=== PATIENT | female | born 1940 | race Caucasian/White ===

== ENCOUNTER 2020-01-01 | Outpatient (REF) | payer OTHER, MEDICARE, SELFPAY ==
[2020-01-01 06:18] LABS: Hematocrit 26.7 % (37-47); Hemoglobin 8.7 g/dl (12.0-16.0); Mean Corpuscular HGB Conc 32.6 g/dl (31.0-35.0); Mean Corpuscular Hemoglobin 34.4 pg (27.0-33.0); Mean Corpuscular Volume 105.5 fL (80-98); Mean Platelet Volume 9.6 fL (9.4-12.3); Platelet Count 241 X10*3/uL (160-400); Red Blood Count 2.53 X10*6/uL (4.20-5.50); Red Cell Distribution Width 15.7 % (11.0-16.0); White Blood Count 5.7 X10*3/uL (4.8-10.8)
[2020-01-01 07:03] LABS: Anion Gap 11 (12-20); Blood Urea Nitrogen 37 mg/dL (9-16); Calcium 8.3 mg/dL (8.4-10.2); Carbon Dioxide 33 mmol/L (22-29); Chloride 98 mmol/L (96-108); Estimated Glomerular Filt Rate 47; Glucose Random 91 mg/dL (60-115); Potassium 3.8 mmol/l (3.3-5.1); Sodium 138 mmol/L (135-145); Uric Acid 9.6 mg/dL (2.4-5.7)
== END 2020-01-01 00:01 ==
LOC: HO.MMNH1L
PROVIDERS: Visit Provider Family Medicine
DX: M10.9 Gout, unspecified (principal)
CPT/HCPCS: 36415; 80048; 84550; 85027

== ENCOUNTER 2020-01-11 11:54 | Outpatient (REF) | payer MEDICARE, SELFPAY ==
[2020-01-11 12:04] LABS: MANUAL DIFF FLAG NO
[2020-01-11 12:23] LABS: Basophils Percent Auto 0.5 % (0-2); Hematocrit 28.6 % (37-47); Hemoglobin 9.4 g/dl (12.0-16.0); Imm Gran Abs Auto 0.01 X10*3/uL (0.00-0.03); Imm Gran Pct Auto 0.2 % (0.0-0.4); Immature Retic Fraction 10.5 % (3.0-15.9); Lymphocytes Absolute Auto 1.1 X10*3/uL (1.2-4.9); Lymphocytes Percent Auto 27.2 % (20-40); Mean Corpuscular HGB Conc 32.9 g/dl (31.0-35.0); Mean Corpuscular Hemoglobin 34.9 pg (27.0-33.0); Mean Corpuscular Volume 106.3 fL (80-98); Mean Platelet Volume 10.3 fL (9.4-12.3); Monocytes Absolute Auto 0.4 X10*3/uL (0.1-1.2); Monocytes Percent Auto 9.3 % (2-11); Neutrophils Absolute Auto 2.6 X10*3/uL (2.0-8.3); Neutrophils Percent Auto 61.8 % (45-73); Platelet Count 185 X10*3/uL (160-400); Red Blood Count 2.69 X10*6/uL (4.20-5.50); Red Cell Distribution Width 15.7 % (11.0-16.0); Retic HGB Equivalent 34.5 pg (30.0-35.0); Reticulocyte Percent 1.3 % (0.5-1.8); Reticulocytes Absolute 0.035 X10*6/uL (0.026-0.095); White Blood Count 4.2 X10*3/uL (4.8-10.8)
[2020-01-11 12:30] LABS: Anion Gap 15 (12-20); Blood Urea Nitrogen 18 mg/dL (9-16); Calcium 8.7 mg/dL (8.4-10.2); Carbon Dioxide 26 mmol/L (22-29); Chloride 104 mmol/L (96-108); Estimated Glomerular Filt Rate 46; Glucose Random 137 mg/dL (60-115); Iron 112 mcg/dL (30-160); Percent Iron Saturation 48 % (15-50); Phosphorus 3.3 mg/dL (2.7-4.5); Potassium 4.3 mmol/l (3.3-5.1); Sodium 141 mmol/L (135-145); Total Iron Binding Capacity 234 mcg/dL (228-428); Unsaturated Iron Binding 122 ug/dL
[2020-01-11 12:50] LABS: Ferritin 565 ng/mL (10-250)
[2020-01-11 14:01] LABS: Vitamin B12 248 pg/mL (200-900)
[2020-01-12 22:21] LABS: NT-proBNP 1950 pg/mL
== END 2020-01-11 11:55 | disposition home or self-care (01) ==
LOC: HO.HVNA 11:54
PROVIDERS: Visit Provider Internal Medicine
DX: D53.9 Nutritional anemia, unspecified (principal); I50.9 Heart failure, unspecified
CPT/HCPCS: 36415; 80051; 82310; 82565; 82607; 82728; 82947; 83540; 83880; 84100; 84520; 85025; 85045

== ENCOUNTER 2020-02-05 15:15 | Outpatient (REF) | payer MEDICARE, SELFPAY ==
[2020-02-05 15:52] LABS: Anion Gap 15 (12-20); Blood Urea Nitrogen 43 mg/dL (9-16); Calcium 8.3 mg/dL (8.4-10.2); Carbon Dioxide 24 mmol/L (22-29); Chloride 105 mmol/L (96-108); Estimated Glomerular Filt Rate 31; Glucose Random 127 mg/dL (60-115); Potassium 4.6 mmol/l (3.3-5.1); Sodium 139 mmol/L (135-145)
[2020-02-05 15:57] LABS: B Type Natriuretic Peptide 295 pg/mL (<100)
== END 2020-02-05 15:16 | disposition home or self-care (01) ==
LOC: HO.LNP 15:15
PROVIDERS: Visit Provider Internal Medicine Advanced Heart Failure and Transplant Cardiology
DX: I50.9 Heart failure, unspecified (principal)
CPT/HCPCS: 80048; 83880

== ENCOUNTER 2020-02-13 10:28 | Outpatient (REF) | payer MEDICARE, SELFPAY ==
[2020-02-13 11:23] LABS: B Type Natriuretic Peptide 205 pg/mL (<100)
[2020-02-13 11:40] LABS: Anion Gap 15 (12-20); Blood Urea Nitrogen 49 mg/dL (9-16); Calcium 8.6 mg/dL (8.4-10.2); Carbon Dioxide 24 mmol/L (22-29); Chloride 104 mmol/L (96-108); Estimated Glomerular Filt Rate 29; Glucose Random 104 mg/dL (60-115); Potassium 4.6 mmol/l (3.3-5.1); Sodium 138 mmol/L (135-145)
== END 2020-02-13 10:29 | disposition home or self-care (01) ==
LOC: HO.LNP 10:28
PROVIDERS: Visit Provider Internal Medicine Advanced Heart Failure and Transplant Cardiology
DX: I50.9 Heart failure, unspecified (principal)
CPT/HCPCS: 80048; 83880

== ENCOUNTER 2020-02-19 15:08 | Outpatient (REF) | payer MEDICARE, SELFPAY ==
[2020-02-19 16:23] LABS: Anion Gap 15 (12-20); Blood Urea Nitrogen 46 mg/dL (9-16); Calcium 8.8 mg/dL (8.4-10.2); Carbon Dioxide 28 mmol/L (22-29); Chloride 102 mmol/L (96-108); Cholesterol 125 mg/dL; Estimated Glomerular Filt Rate 27; Glucose Random 92 mg/dL (60-115); HDL Cholesterol 49 mg/dL; LDL Cholesterol Calculated 56 mg/dl; Potassium 5.1 mmol/l (3.3-5.1); Sodium 140 mmol/L (135-145); Triglycerides 102 mg/dL
[2020-02-20 11:56] LABS: NT-proBNP 4490 pg/mL
== END 2020-02-19 15:09 | disposition home or self-care (01) ==
LOC: HO.HVNA 15:08
PROVIDERS: Visit Provider Internal Medicine
DX: E78.5 Hyperlipidemia, unspecified (principal); I50.9 Heart failure, unspecified
CPT/HCPCS: 80048; 80061; 83880

== ENCOUNTER 2020-02-27 12:02 | Outpatient (REF) | payer MEDICARE, SELFPAY ==
[2020-02-27 12:06] LABS: MANUAL DIFF FLAG NO
[2020-02-27 12:15] LABS: Basophils Percent Auto 0.9 % (0-2); Eosinophils Percent Auto 0.6 % (0-4); Hematocrit 25.8 % (37-47); Hemoglobin 8.4 g/dl (12.0-16.0); Imm Gran Abs Auto 0.01 X10*3/uL (0.00-0.03); Imm Gran Pct Auto 0.3 % (0.0-0.4); Lymphocytes Absolute Auto 0.9 X10*3/uL (1.2-4.9); Lymphocytes Percent Auto 26.5 % (20-40); Mean Corpuscular HGB Conc 32.6 g/dl (31.0-35.0); Mean Corpuscular Hemoglobin 35.7 pg (27.0-33.0); Mean Corpuscular Volume 109.8 fL (80-98); Mean Platelet Volume 10.2 fL (9.4-12.3); Monocytes Absolute Auto 0.3 X10*3/uL (0.1-1.2); Monocytes Percent Auto 7.8 % (2-11); Neutrophils Absolute Auto 2.2 X10*3/uL (2.0-8.3); Neutrophils Percent Auto 63.9 % (45-73); Platelet Count 160 X10*3/uL (160-400); Red Blood Count 2.35 X10*6/uL (4.20-5.50); Red Cell Distribution Width 15.7 % (11.0-16.0); Retic HGB Equivalent 33.5 pg (30.0-35.0); Reticulocyte Percent 2.3 % (0.5-1.8); Reticulocytes Absolute 0.055 X10*6/uL (0.026-0.095); White Blood Count 3.5 X10*3/uL (4.8-10.8)
[2020-02-27 13:26] LABS: Vitamin B12 310 pg/mL (200-900)
== END 2020-02-27 12:03 | disposition home or self-care (01) ==
LOC: HO.LNP 12:02
PROVIDERS: Visit Provider Internal Medicine
DX: D53.9 Nutritional anemia, unspecified (principal)
CPT/HCPCS: 36415; 82607; 85025; 85045

== ENCOUNTER 2020-06-17 00:15 | Outpatient (REF) | payer SELFPAY | END 2020-06-17 00:16 | disposition home or self-care (01) | LOC: HO.MMNH2L 00:15 | PROVIDERS: Visit Provider Family Medicine | DX: Z13.89 Encounter for screening for other disorder (principal) ==

== ENCOUNTER 2020-12-03 05:49 | Outpatient (REF) | payer MEDICARE, SELFPAY ==
[2020-12-03 06:09] LABS: Hematocrit 24.2 % (37-47); Hemoglobin 7.8 g/dl (12.0-16.0); Mean Corpuscular HGB Conc 32.2 g/dl (31.0-35.0); Mean Corpuscular Hemoglobin 33.9 pg (27.0-33.0); Mean Corpuscular Volume 105.2 fL (80-98); Mean Platelet Volume 10.5 fL (9.4-12.3); Platelet Count 155 X10*3/uL (160-400); Red Cell Distribution Width 14.5 % (11.0-16.0); White Blood Count 4.1 X10*3/uL (4.8-10.8)
[2020-12-03 06:35] LABS: Alanine Aminotransferase < 6 U/L (0-31); Albumin Level 3.2 g/dL (3.5-5.0); Alkaline Phosphatase 71 U/L (39-117); Anion Gap 11 (12-20); Aspartate Amino Transferase 8 U/L (5-31); Bilirubin Total 0.5 mg/dL (0.0-1.0); Blood Urea Nitrogen 43 mg/dL (9-16); Calcium 8.4 mg/dL (8.4-10.2); Carbon Dioxide 25 mmol/L (22-29); Chloride 110 mmol/L (96-108); Estimated Glomerular Filt Rate 34; Glucose Random 105 mg/dL (60-115); Potassium 4.7 mmol/L (3.3-5.1); Sodium 141 mmol/L (135-145); Total Protein 5.2 g/dL (6.5-8.0)
== END 2020-12-03 05:50 | disposition home or self-care (01) ==
LOC: HO.MMNH1L 05:49
PROVIDERS: Visit Provider Family Medicine
DX: I48.91 Unspecified atrial fibrillation (principal)
CPT/HCPCS: 36415; 80053; 85027

== ENCOUNTER 2021-01-06 00:11 | Outpatient (REF) | payer SELFPAY | END 2021-01-06 00:12 | disposition home or self-care (01) | LOC: HO.MMNH1L 00:11 | PROVIDERS: Visit Provider Family Medicine | DX: Z13.89 Encounter for screening for other disorder (principal) ==

== ENCOUNTER 2021-12-16 09:38 | Emergency (ER) | payer MEDICARE, OTHER, SELFPAY ==
--- NOTE | 2021-12-16 | ECG_ITS ---
Test Reason : hypotention, tremors Blood Pressure : / mmHG Vent. Rate : 076 BPM Atrial Rate : 076 BPM P-R Int : 196 ms QRS Dur : 130 ms QT Int : 428 ms P-R-T Axes : 048 -15 032 degrees QTc Int : 481 ms Normal sinus rhythm Right bundle branch block Septal infarct (cited on or before 03-DEC-2019) Abnormal ECG When compared with ECG of 03-DEC-2019 18:40, Questionable change in initial forces of Septal leads Referred By: Raghav Gee Electronically Signed By:MAYELIN MEI
--- NOTE | ~2021-12-16 | CT_ITS ---
EXAMINATION: CT HEAD WITHOUT CONTRAST CLINICAL INFORMATION: Tremors and dysarthria COMPARISON: None TECHNIQUE: Contiguous axial imaging was performed from the skull base to vertex without intravenous administration of contrast. This CT examination was performed using dose optimization techniques as appropriate, variously including the following: *Automated exposure control *Adjustment of mA and/or kV according to patient size (this includes techniques or standardized protocols for targeted exams where dose is matched to indication/reason for exam; i.e. extremities or head) *Use of iterative reconstruction technique DLP: 792 mGy-cm FINDINGS: There is no evidence of acute intracranial hemorrhage or territorial infarction. No abnormal mass effect or midline shift is seen. Villegas to white matter differentiation is well preserved. No extra-axial fluid collections are identified. The ventricles are normal in size. There is no abnormal attenuation within the brain parenchyma. The osseous structures and soft tissues are normal. The mastoid air cells and visualized portions of the paranasal sinuses are well aerated. Vertebrobasilar atherosclerotic calcifications. CT/CT head/brain wo IV con IMPRESSION: No acute intracranial pathology.
--- NOTE | 2021-12-16 09:43 | ED.GENADULT ---
HPI - General Adult General Chief complaint: General Medical Stated complaint: STROKE ALERT Time Seen by Provider: 12/16/21 09:43 Source: patient Mode of arrival: EMS Limitations: no limitations History of Present Illness HPI narrative: yesterday patient had kidney stone surgery yesterday at [facility]. Since then she has had twitching and voice sound mumbly. Her twitching is to both sides with right greater than left. These symptoms they noticed yesterday after surgery Onset (ago): day(s) Severity: mild Pain Consistency: constant Treatments prior to arrival: none Related Data Previous Rx's Medication Instructions Recorded cephalexin 500 mg capsule 500 mg PO Q6H #20 caps 12/16/21 potassium chloride 20 mEq 20 meq PO DAILY #5 tabs 12/16/21 tablet,extended release Allergies Allergy/AdvReac Type Severity Reaction Status Date / Time lisinopril [LISINOPRIL] Allergy Severe ANGIOEDEMA Unverified 12/07/19 16:26 Review of Systems Constitutional: Constitutional: Reports no additional constitutional complaints Eyes: Eyes: Reports no additional eye complaints ENT: Denies dizziness Cardiovascular: Cardiovascular: Reports no additional cardiovascular complaints Respiratory: Respiratory: Reports as per HPI Gastrointestinal: Gastrointestinal: Reports no additional gastrointestinal complaints Genitourinary: Genitourinary: Reports no additional female genitourinary complaints Musculoskeletal: Musculoskeletal: Reports no additional musculoskeletal complaints Integumentary/Breasts: Skin/Breast: Denies rash Neurologic: Reports system reviewed and no additional complaints, except as documented, Denies dizziness and Denies Sensory deficit (Neuro) Psychiatric: Psychiatric: Denies anxiety [facility] [place] Social History Social History Advance Directives: Yes Advance Directives Information Provided: Yes Advance Directives on File: No Physical Exam ED Vital Signs: Vital Signs - 24 hr 12/16/21 10:14 12/16/21 10:36 12/16/21 12:59 Temperature 98.0 F 98.0 F 97.7 F Pulse Rate 80 81 60 Respiratory Rate 16 16 20 Blood Pressure 85/65 L 98/35 L Pulse Oximetry 96 98 98 Oxygen Delivery Method Room Air Room Air Room Air 12/16/21 14:24 12/16/21 16:26 Temperature 97.7 F 98.3 F Pulse Rate 57 61 Respiratory Rate 24 H 20 Blood Pressure 105/49 L 111/46 L Pulse Oximetry 99 98 Oxygen Delivery Method Room Air Room Air BMI result Body Mass Index 26.6 Const Other: elderly female Nutritional Appearance: average body habitus Orientation/consciousness: oriented to person and patient oriented x3 Limitations: no limitations HENMT Head: Yes normal to inspection Ears: external ears normal General nose exam: Normal external nose present Mouth: Normal oral and palatal mucosa present and oropharynx normal Throat: Yes posterior oropharynx normal Eyes General: appearance normal, both eyes and all related structures Neck Neck: Yes normal visual inspection Chest Chest palpation & inspection: normal inspection of the chest Resp Auscultation: clear to auscultation bilaterally Cardio Jugular venous distension: no JVD Rate: regular rate Rhythm: regular rhythm Heart sounds: S1 normal heart sound present and S2 normal heart sound present GI Inspection: Yes normal to inspection Palpation (GI): Soft to palpation, nontender and No hepatosplenomegaly present Auscultation: normal bowel sounds General: Yes no CVA tenderness Back/Spine/Pelvis Back: no CVA tenderness Skin General skin exam: no rashes or lesions noted Neuro General: oriented to person and patient oriented x3 Cranial nerves: Yes CN's II-XII intact bilaterally Motor exam (neuro): 5/5 motor strength present throughout Sensory Exam: No Sensory deficit (Neuro) Extrem General: Yes normal to inspection Psych Appearance: grossly normal NIH Stroke Scale Level of Consciousness: Alert Level of Consciousness Questions: Answers both questions correctly Level of Consciousness Commands: Performs both tasks correctly Best Gaze: Normal Visual: No visual loss Facial Palsy: Normal Motor Arm (Right): No drift Motor Arm (Left): No drift Motor Leg (Right): No drift Motor Leg (Left): No drift Limb Ataxia: Absent Sensory: Normal Best Language: No aphasia Dysarthia: Mild to moderate dysarthria Extinction and Inattention: No abnormality Score: 1 Course Reevaluation(s) Reevaluation #1: with the bilateral twitching right greater than left with the very slight dysarthria this does not sound like stroke, impression is more toxic metabolic, will still obtain head CT. Time: 09:57 Reevaluation #2: patient with improvement of dysarthria after hydration, family at bedside, some myoclonic twitching which has improved, will give potassium replacement, elevated urine WBC will dc on keflex for 5 days Time: 15:39 Medical Decision Making Lab Data Result diagrams: 09/27/22 10:37 12/16/21 10:37 Labs: Lab Results 12/16/21 12/16/21 12/16/21 Range/Units 09:40 09:43 10:37 WBC 4.5 L (4.8-10.8) X10*3/uL RBC 2.27 L (4.20-5.50) X10*6/uL Hgb 7.2 L (12.0-16.0) g/dl Hct 23.2 L (37.0-47.0) % MCV 102.2 H (80.0-98.0) fL MCH 31.7 (27.0-33.0) pg MCHC 31.0 (31.0-35.0) g/dl RDW 14.3 (11.0-16.0) % Plt Count 139 L (160-400) X10*3/uL MPV 10.7 (9.4-12.3) fL Immature Gran % (Auto) 0.4 (0.0-0.4) % Neut % (Auto) 78.6 H (45-73) % Lymph % (Auto) 12.2 L (20-40) % [place] % (Auto) 8.2 (2-11) % Eos % (Auto) 0.2 (0-4) % Baso % (Auto) 0.4 (0-2) % Lymph # (Auto) 0.6 L (1.2-4.9) X10*3/uL [place] # (Auto) 0.4 (0.1-1.2) X10*3/uL Eos # (Auto) 0.0 (0.0-0.4) X10*3/uL Baso # (Auto) 0.0 (0.0-0.2) X10*3/uL Abs Immat Gran (auto) 0.02 (0.00-0.03) X10*3/uL Absolute Neuts (auto) 3.5 (2.0-8.3) x10*3/uL Absolute Nucleated RBC 0.000 (0.0-0.012) X10*3/uL Nucleated RBC % (auto) 0.0 (0.0-0.2) /100WBC Whole Blood PT 14.9 H (11.1-13.5) sec Whole Blood INR 1.2 H (0.9-1.1) Sodium (135-145) mmol/L Potassium (3.3-5.1) mmol/L Chloride (96-108) mmol/L Carbon Dioxide (22-29) mmol/L Anion Gap (12-20) BUN (9-16) mg/dL Creatinine (0.5-1.4) mg/dL Estim Creat Clear Calc Estimated GFR POC Glucose 93 (60-115) mg/dL Random Glucose (60-115) mg/dL Calcium (8.4-10.2) mg/dL Urine Color Urine Appearance Urine pH (5.0-9.0) Ur Specific Hazel (1.005-1.025) Urine Protein (Neg-Trace) mg/dL Urine Glucose (UA) (Negative) mg/dL Urine Ketones (Negative) mg/dL Urine Blood (Negative) Urine Nitrite (Negative) Ur Leukocyte Esterase (Negative) Urine RBC (0-2) /HPF Urine WBC (0-5) /HPF Ur Squamous Epith Cells (0-2) /HPF Urine Bacteria (None Seen) Hyaline Casts (0-2) /LPF 12/16/21 12/16/21 Range/Units 10:37 16:18 WBC (4.8-10.8) X10*3/uL RBC (4.20-5.50) X10*6/uL Hgb (12.0-16.0) g/dl Hct (37.0-47.0) % MCV (80.0-98.0) fL MCH (27.0-33.0) pg MCHC (31.0-35.0) g/dl RDW (11.0-16.0) % Plt Count (160-400) X10*3/uL MPV (9.4-12.3) fL Immature Gran % (Auto) (0.0-0.4) % Neut % (Auto) (45-73) % Lymph % (Auto) (20-40) % [place] % (Auto) (2-11) % Eos % (Auto) (0-4) % Baso % (Auto) (0-2) % Lymph # (Auto) (1.2-4.9) X10*3/uL [place] # (Auto) (0.1-1.2) X10*3/uL Eos # (Auto) (0.0-0.4) X10*3/uL Baso # (Auto) (0.0-0.2) X10*3/uL Abs Immat Gran (auto) (0.00-0.03) X10*3/uL Absolute Neuts (auto) (2.0-8.3) x10*3/uL Absolute Nucleated RBC (0.0-0.012) X10*3/uL Nucleated RBC % (auto) (0.0-0.2) /100WBC Whole Blood PT (11.1-13.5) sec Whole Blood INR (0.9-1.1) Sodium 141 (135-145) mmol/L Potassium 3.0 L (3.3-5.1) mmol/L Chloride 104 (96-108) mmol/L Carbon Dioxide 25 (22-29) mmol/L Anion Gap 15 (12-20) BUN 21 H (9-16) mg/dL Creatinine 2.06 H (0.5-1.4) mg/dL Estim Creat Clear Calc 22.1 Estimated GFR 23 POC Glucose (60-115) mg/dL Random Glucose 95 (60-115) mg/dL Calcium 7.0 L D (8.4-10.2) mg/dL Urine Color Yellow Urine Appearance Clear Urine pH 6.5 (5.0-9.0) Ur Specific Hazel 1.010 (1.005-1.025) Urine Protein 30 (1+) H (Neg-Trace) mg/dL Urine Glucose (UA) Negative (Negative) mg/dL Urine Ketones Negative (Negative) mg/dL Urine Blood Large (3+) H (Negative) Urine Nitrite Negative (Negative) Ur Leukocyte Esterase Large (3+) H (Negative) Urine RBC >20 H (0-2) /HPF Urine WBC >50 H (0-5) /HPF Ur Squamous Epith Cells 0-2 (0-2) /HPF Urine Bacteria None Seen (None Seen) Hyaline Casts 0-2 (0-2) /LPF Imaging Data CT scan - head: Radiologist's impression: FINDINGS: There is no evidence of acute intracranial hemorrhage or territorial infarction. No abnormal mass effect or midline shift is seen. Villegas to white matter differentiation is well preserved. No extra-axial fluid collections are identified. The ventricles are normal in size. There is no abnormal attenuation within the brain parenchyma. The osseous structures and soft tissues are normal. The mastoid air cells and visualized portions of the paranasal sinuses are well aerated. Vertebrobasilar atherosclerotic calcifications. ? CT/CT head/brain wo IV con IMPRESSION: No acute intracranial pathology. Discharge Plan Discharge Clinical Impression: Acute dehydration, Urinary tract infection, Acute hypokalemia Patient Disposition: Home, Self-Care Instructions: Dehydration (ED), Hypokalemia (ED), Urinary Tract Infection in Older Adults (ED) Prescriptions: New cephalexin 500 mg capsule 500 mg PO Q6H Qty: 20 0RF potassium chloride 20 mEq tablet extended release 20 meq PO DAILY Qty: 5 0RF
[2021-12-16 09:47] LABS: Glucose, Whole Blood 93 mg/dL (60-115)
[2021-12-16 09:55] LABS: Prothrombin Time Whole Bld POC 14.9 sec (11.1-13.5); ~PT, ~INR - Anti Coag Clinic 1.2 (0.9-1.1)
[2021-12-16 10:14] VITALS: BP 144/90; BP 85/65; PULSE 80; RESP 16; TEMP 36.7; O2SAT 96; BMI 26.6
[2021-12-16 10:36] VITALS: PULSE 81; RESP 16; TEMP 36.7; O2SAT 98
[2021-12-16 10:45] LABS: MANUAL DIFF FLAG NO
[2021-12-16 10:47] LABS: Basophils Percent Auto 0.4 % (0-2); Eosinophils Percent Auto 0.2 % (0-4); Hematocrit 23.2 % (37.0-47.0); Hemoglobin 7.2 g/dl (12.0-16.0); Imm Gran Abs Auto 0.02 X10*3/uL (0.00-0.03); Imm Gran Pct Auto 0.4 % (0.0-0.4); Lymphocytes Absolute Auto 0.6 X10*3/uL (1.2-4.9); Lymphocytes Percent Auto 12.2 % (20-40); Mean Corpuscular Hemoglobin 31.7 pg (27.0-33.0); Mean Corpuscular Volume 102.2 fL (80.0-98.0); Mean Platelet Volume 10.7 fL (9.4-12.3); Monocytes Absolute Auto 0.4 X10*3/uL (0.1-1.2); Monocytes Percent Auto 8.2 % (2-11); Neutrophils Absolute Auto 3.5 x10*3/uL (2.0-8.3); Neutrophils Percent Auto 78.6 % (45-73); Platelet Count 139 X10*3/uL (160-400); Red Blood Count 2.27 X10*6/uL (4.20-5.50); Red Cell Distribution Width 14.3 % (11.0-16.0); White Blood Count 4.5 X10*3/uL (4.8-10.8)
[2021-12-16] MEDS: 0.9 % Sodium Chloride 1,000 ML 125 ML IVCONT (10:48)
--- NOTE | 2021-12-16 10:50 | PC.NURSE ---
Patient presents to Ed c/o continues tremors . shaking since 6pm . Had kidney procedure done at [facility] yesterday . Patient is a/ox4. Pearrla . heart rate regular at 76 beats per minute . lungs clear . skin pink warm . patient has fine tremors throughout body . IV placed in Left A/C , patient initial B/P 85/65 patient positioned in [place] and given fluids .Dr. Gee notified . Order for IV fluids obtained and implemented . Lungs remain clear . Improvement of B/P to 127/50 . patient reports no pain . necrological assessment preformed at bedside by provider patient passed with zero deficits noted . Labs drawn and sent . patient on monitor . patient aware of plan of care .
[2021-12-16 11:00] LABS: Anion Gap 15 (12-20); Blood Urea Nitrogen 21 mg/dL (9-16); Carbon Dioxide 25 mmol/L (22-29); Chloride 104 mmol/L (96-108); Creatinine Clr Calc Pharmacy 22.1; Estimated Glomerular Filt Rate 23; Glucose Random 95 mg/dL (60-115); Sodium 141 mmol/L (135-145)
[2021-12-16 12:59] VITALS: BP 98/35; PULSE 60; RESP 20; TEMP 36.5; O2SAT 98
[2021-12-16 14:24] VITALS: BP 105/49; PULSE 57; RESP 24; TEMP 36.5; O2SAT 99
[2021-12-16 16:26] VITALS: BP 111/46; PULSE 61; RESP 20; TEMP 36.8; O2SAT 98
[2021-12-16 16:26] LABS: Appearance Urine Clear; Color Urine Yellow; Glucose Urine UA Negative (Negative); Leukocyte Esterase Urine Large (3+) (Negative); Nitrite Urine Negative (Negative); PH 6.5 (5.0-9.0); UMIC TRIGGER UACC YES; Urine Blood Large (3+) (Negative); Urine Ketones Negative (Negative); Urine Protein 30 (1+) mg/dL (Neg-Trace)
[2021-12-16 16:31] LABS: Bacteria Urine None Seen (None Seen); Hyaline Casts Urine 0-2 /LPF (0-2); RBC Urine >20 /HPF (0-2); Squamous Epithelial Cell Urine 0-2 /HPF (0-2); UACC Culture Trigger YES; WBC Urine >50 /HPF (0-5)
[2021-12-16] MEDS: cefTRIAXone sodium 1 GM in 0.9 % Sodium Chloride 50 ML IV (16:38)
[2021-12-16] MEDS: Potassium Chloride ER 20 MEQ TAB.ER.PRT PO (16:38)
--- NOTE | 2021-12-16 17:30 | PC.NURSE ---
patient A/x4 . Went over discharge instructions as ordered by provider . patient to follow up with their urologist . return to Ed if symptoms worsen .no questions at this time .
== END 2021-12-16 18:26 | disposition home or self-care (01) ==
PROVIDERS: Emergency Provider Emergency Medicine; PCP Internal Medicine
DX: N39.0 Urinary tract infection, site not specified (principal); E86.0 Dehydration; E87.6 Hypokalemia; R47.1 Dysarthria and anarthria; R51.9 Headache, unspecified; I95.9 Hypotension, unspecified; Z79.899 Other long term (current) drug therapy
CPT/HCPCS: 36415; 70450; 80048; 81001; 82947; 85025; 85610; 87086; 93005; 96361; 96374; 99285; J0696

== ENCOUNTER 2021-12-22 16:45 | Outpatient (REF) | payer MEDICARE, OTHER, SELFPAY ==
[2021-12-22 17:06] LABS: Anion Gap 17 (12-20); Blood Urea Nitrogen 14 mg/dL (9-16); Carbon Dioxide 25 mmol/L (22-29); Chloride 102 mmol/L (96-108); Estimated Glomerular Filt Rate 42; Glucose Random 94 mg/dL (60-115); Potassium 3.6 mmol/L (3.3-5.1); Sodium 140 mmol/L (135-145)
== END 2021-12-22 16:46 | disposition home or self-care (01) ==
LOC: HO.LNP 16:45
PROVIDERS: Visit Provider Internal Medicine Advanced Heart Failure and Transplant Cardiology
DX: I12.9 Hypertensive chronic kidney disease with stage 1 through stage 4 chronic kidney disease, or unspecified chronic kidney disease (principal); N13.30 Unspecified hydronephrosis; N20.0 Calculus of kidney
CPT/HCPCS: 80048

== ENCOUNTER 2022-01-08 14:42 | Outpatient (REF) | payer MEDICARE, OTHER, SELFPAY ==
[2022-01-08 15:00] LABS: Estimated Average Glucose 111 mg/dL; Hemoglobin A1c % 5.5 %
== END 2022-01-08 14:43 | disposition home or self-care (01) ==
LOC: HO.LNP 14:42
PROVIDERS: Visit Provider Internal Medicine
DX: E11.22 Type 2 diabetes mellitus with diabetic chronic kidney disease (principal); I13.0 Hypertensive heart and chronic kidney disease with heart failure and stage 1 through stage 4 chronic kidney disease, or unspecified chronic kidney disease; N18.4 Chronic kidney disease, stage 4 (severe); I50.9 Heart failure, unspecified
CPT/HCPCS: 83036

== ENCOUNTER 2023-02-10 13:34 | Outpatient (AMB) | payer MEDICARE, OTHER, SELFPAY ==
--- NOTE | 2023-02-10 13:42 | HO.NEPHOV ---
HPI HPI Comments History of Present Illness Details I had the pleasure of seeing Margo in follow-up of her chronic kidney disease. Her medications have been adjusted recently by Dr. Cardoso. She does not have any chest pain, shortness of breath, worsening pedal edema. She sleeps in a recliner. She has no urinary symptoms. She has a renal mass and is followed by a urologist. She does not have any weight loss, hematuria, night sweats. She tries to be compliant with a low-sodium diet. She feels well. [facility] Medical History (Updated 02/10/23 @ 14:10 by Jaspreet Menchaca MD) Acute kidney injury Secondary hyperparathyroidism Essential (primary) hypertension Renal mass Chronic kidney disease, stage 3b Surgical History (Updated 02/10/23 @ 13:51 by Sol Nobles MA) History of knee replacement Family History Mother Heart disease Father Lung cancer (Updated 02/10/23 @ 13:50 by Sol Nobles MA) Alcohol intake: never Patient Tobacco Use Status: Former Tobacco user Vital Signs 02/10/23 13:44 Height 5 ft 5 in Weight 176 lb 2 oz BMI 29.3 BP 122/74 Blood Pressure Location Lt brachial Position Sitting Pulse 80 Pulse Source Pulse Oximeter Pulse Oximetry (%) 99 Oxygen Delivery Method Room Air Physical Exam Vital Signs: Last Vital Signs Pulse 80 02/10/23 13:44 BP 122/74 02/10/23 13:44 Pulse Ox 99 02/10/23 13:44 Oxygen Delivery Method Room Air 02/10/23 13:44 BMI result Body Mass Index 29.3 Const General: comfortable and no acute distress Orientation/consciousness: patient oriented x3 HEENT Head: Yes normocephalic Mouth: Normal oral and palatal mucosa present Eyes EOM: EOMs intact bilaterally Neck Neck: Yes supple Resp Auscultation: clear to auscultation bilaterally Cardio Jugular venous distension: no JVD Rate: regular rate GI Palpation (GI): Soft to palpation Auscultation: normal bowel sounds General: Yes no CVA tenderness Back/Spine/Pelvis Back: no CVA tenderness Skin General skin exam: no rashes or lesions noted Neuro General: patient oriented x3 and moves all extremities Extrem General: Yes no pedal edema Assessment & Plan Assessment & Plan (1) Chronic kidney disease, stage 3b: Code(s): N18.32 - Chronic kidney disease, stage 3b Abena Aragon has stage III B CKD. She has cardiomyopathy. 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 Her diuretics have been adjusted by her heart failure physician. She is hemodynamically stable and her volume status is optimal. She should be on low-sodium diet. She should avoid nonsteroidal anti-inflammatory medications. I did not make any medication changes today. She needs to follow-up with her urologist for her renal mass. Follow-up blood work was ordered. All questions were answered. Time spent for retrieving data, documentation and patient encounter 25 minutes. Orders: Orders Electrolytes 3 Weeks N18.32 - Chronic kidney disease, stage 3b Blood Urea Nitrogen 02/10/23 N18.32 - Chronic kidney disease, stage 3b Calcium 02/10/23 N18.32 - Chronic kidney disease, stage 3b Electrolytes 3 Months N18.32 - Chronic kidney disease, stage 3b Creatinine 02/10/23 N18.32 - Chronic kidney disease, stage 3b Blood Urea Nitrogen 3 Months N18.32 - Chronic kidney disease, stage 3b Creatinine 3 Months N18.32 - Chronic kidney disease, stage 3b Coding Level of Care Code Est Pt Level 3 (52647) Diagnoses Chronic kidney disease, stage 3b N18.32
[2023-02-10 13:44] VITALS: BP 122/74; PULSE 80; O2SAT 99; BMI 29.3
== END 2023-02-10 14:29 | disposition home or self-care (01) ==
PROVIDERS: PCP Internal Medicine; Visit Provider Internal Medicine Nephrology
DX: N18.32 Chronic kidney disease, stage 3b (principal); N28.89 Other specified disorders of kidney and ureter
CPT/HCPCS: 99213

== ENCOUNTER → 2023-02-10 13:34 | Outpatient (BNVA) | payer MEDICARE, OTHER, SELFPAY | PROVIDERS: PCP Internal Medicine; Visit Provider Internal Medicine Nephrology | DX: N18.32 Chronic kidney disease, stage 3b (principal); N17.9 Acute kidney failure, unspecified; N28.89 Other specified disorders of kidney and ureter | CPT/HCPCS: 99212 ==

== ENCOUNTER 2023-05-12 14:00 | Outpatient (AMB) | payer MEDICARE, OTHER, SELFPAY ==
--- NOTE | 2023-05-12 14:01 | HO.NEPHOV_ITS ---
HPI HPI Comments History of Present Illness Details I had the pleasure of seeing Margo in follow-up of her JOSE CARLOS on chronic kidney disease. She has medical history significant for CKD, CAD, ischemic cardiomyopathy with ICD, HFrEF, paroxysmal atrial fibrillation, HTN, T2DM, anemia, arthritis, urinary incontinence, secondary hyperparathyroidism, GERD . She was sent to the ER by PCP continuous nausea, abdominal pain, and diarrhea causing severe JOSE CARLOS superimposed on CKD. She was [place] for JOSE CARLOS [place] [facility] [place] going up to 8.0. JOSE CARLOS was thought to be 2/2 to combination of recent gastroenteritis and also patient being on diuretics ( reported to be taking double doses than prescribed.) and contrast exposure on 04/09. She was initially started on biacrb infusion followed by LR at 125cc hr for few day and holding of her diuretics. creatinine improved / stable and was D/José Miguel home. She does not have any chest pain, shortness of breath, worsening pedal edema. She sleeps in a recliner. She has no urinary symptoms. She has a renal mass and is followed by a urologist. She does not have any weight loss, hematuria, night sweats. She tries to be compliant with a low- sodium diet. [facility] Medical History (Updated 05/12/23 @ 14:18 by Jaspreet Menchaca MD) Acute kidney injury Secondary hyperparathyroidism Essential (primary) hypertension Renal mass Chronic kidney disease, stage 3b Surgical History History of knee replacement Family History Mother Heart disease Father Lung cancer Social History Alcohol intake: never Patient Tobacco Use Status: Former Tobacco user Vital Signs 05/12/23 14:02 Height 5 ft 5 in Weight 168 lb 8 oz BMI 28.0 BP 114/60 Blood Pressure Location Lt brachial Position Sitting Pulse 76 Pulse Source Pulse Oximeter Pulse Oximetry (%) 100 Oxygen Delivery Method Room Air Physical Exam Vital Signs: Last Vital Signs Pulse 76 05/12/23 14:02 BP 114/60 05/12/23 14:02 Pulse Ox 100 05/12/23 14:02 Oxygen Delivery Method Room Air 05/12/23 14:02 BMI result Body Mass Index 28.0 Const General: comfortable and no acute distress Orientation/consciousness: patient oriented x3 HEENT Head: Yes normocephalic Mouth: Normal oral and palatal mucosa present Eyes EOM: EOMs intact bilaterally Neck Neck: Yes supple Resp Auscultation: clear to auscultation bilaterally Cardio Jugular venous distension: no JVD Rate: regular rate GI Palpation (GI): Soft to palpation Auscultation: normal bowel sounds General: Yes no CVA tenderness Back/Spine/Pelvis Back: no CVA tenderness Skin General skin exam: no rashes or lesions noted Neuro General: patient oriented x3 and moves all extremities Extrem General: Yes no pedal edema Assessment & Plan Assessment & Plan (1) Chronic kidney disease, stage 3b: Code(s): N18.32 - Chronic kidney disease, stage 3b (2) Renal mass: Code(s): N28.89 - Other specified disorders of kidney and ureter (3) Acute kidney injury: Code(s): N17.9 - Acute kidney failure, unspecified Plan Margo has stage III B CKD at baseline. JOSE CARLOS was thought to be 2/2 to combination of recent gastroenteritis and also patient being on diuretics ( reported to be taking double doses than prescribed.) and contrast exposure on 04/09. She was initially started on biacrb infusion followed by LR at 125cc hr for few day and holding of her diuretics. Her serum creatinine improved from 8 to 3.2. She has cardiomyopathy. 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 She is hemodynamically stable and her volume status is optimal. Her diuretics were adjusted by [facility] cards yesterday.. She should be on low- sodium diet. She should avoid nonsteroidal anti-inflammatory medications. I did not make any medication changes today. She needs to follow-up with her u rologist for her renal mass. Follow-up blood work was ordered. All questions were answered. Orders: Orders Creatinine Today N17.9 - Acute kidney failure, unspecified, N18.32 - Chronic kidney disease, stage 3b, N28.89 - Other specified disorders of kidney and ureter Blood Urea Nitrogen Today N17.9 - Acute kidney failure, unspecified, N18.32 - Chronic kidney disease, stage 3b, N28.89 - Other specified disorders of kidney and ureter Electrolytes Today N17.9 - Acute kidney failure, unspecified, N18.32 - Chronic kidney disease, stage 3b, N28.89 - Other specified disorders of kidney and ureter Coding Level of Care Code Est Pt Level 4 (06240) Diagnoses Chronic kidney disease, stage 3b N18.32 Renal mass N28.89 Acute kidney injury N17.9 Results Reviewed Nephrology Results: Hgb 7.2 g/dl (12.0-16.0) L 12/16/21 WBC 4.5 X10*3/uL (4.8-10.8) L 12/16/21 Plt Count 139 X10*3/uL (160-400) L 12/16/21 Sodium 140 mmol/L (135-145) 12/22/21 Potassium 3.6 mmol/L (3.3-5.1) 12/22/21 Chloride 102 mmol/L (96-108) 12/22/21 Carbon Dioxide 25 mmol/L (22-29) 12/22/21 BUN 14 mg/dL (9-16) 12/22/21 Creatinine 1.23 mg/dL (0.5-1.4) 12/22/21 Calcium 8.0 mg/dL (8.4-10.2) L 12/22/21 Urine Protein 30 (1+) mg/dL (Neg-Trace) H 12/16/21
[2023-05-12 14:02] VITALS: BP 114/60; PULSE 76; O2SAT 100; BMI 28.0
== END 2023-05-12 14:42 | disposition home or self-care (01) ==
PROVIDERS: PCP Internal Medicine; Visit Provider Internal Medicine Nephrology
DX: N18.32 Chronic kidney disease, stage 3b (principal); N28.89 Other specified disorders of kidney and ureter; N17.9 Acute kidney failure, unspecified
CPT/HCPCS: 99214

== ENCOUNTER → 2023-05-12 14:00 | Outpatient (BNVA) | payer MEDICARE, OTHER, SELFPAY | PROVIDERS: PCP Internal Medicine; Visit Provider Internal Medicine Nephrology | DX: N18.32 Chronic kidney disease, stage 3b (principal); N28.89 Other specified disorders of kidney and ureter; N17.9 Acute kidney failure, unspecified | CPT/HCPCS: 99212 ==

== ENCOUNTER 2023-06-09 15:05 | Outpatient (AMB) | payer MEDICARE, OTHER, SELFPAY ==
[2023-06-09 15:09] VITALS: BP 116/60; PULSE 77; O2SAT 97; BMI 28.8
--- NOTE | 2023-06-09 15:09 | HO.NEPHOV ---
HPI HPI Comments History of Present Illness Details I had the pleasure of seeing Margo in follow-up of her JOSE CARLOS on chronic kidney disease. She has medical history significant for CKD, CAD, ischemic cardiomyopathy with ICD, HFrEF, paroxysmal atrial fibrillation, HTN, T2DM, anemia, arthritis, urinary incontinence, secondary hyperparathyroidism, GERD . She was sent to the ER by PCP continuous nausea, abdominal pain, and diarrhea causing severe JOSE CARLOS superimposed on CKD. She was admitted for JOSE CARLOS superimposed on CKD in [facility] with creatinine going up to 8.0. JOSE CARLOS was thought to be 2/2 to combination of recent gastroenteritis and also patient being on diuretics ( reported to be taking double doses than prescribed.) and contrast exposure on 04/09. She was initially started on biacrb infusion followed by LR at 125cc hr for few day and holding of her diuretics. creatinine improved / stable and was D/José Miguel home. She does not have any chest pain, shortness of breath, worsening pedal edema. She has no urinary symptoms. She has a renal mass and is followed by a urologist. She does not have any weight loss, hematuria, night sweats. She tries to be compliant with a low-sodium diet. Her weight has gone up and her diuretics were adjusted by cardiology, with improvement in weight PFS Medical History (Updated 05/12/23 @ 14:18 by Jaspreet Menchaca MD) Acute kidney injury Secondary hyperparathyroidism Essential (primary) hypertension Renal mass Chronic kidney disease, stage 3b Surgical History History of knee replacement Family History Mother Heart disease Father Lung cancer Social History Alcohol intake: never Patient Tobacco Use Status: Former Tobacco user Vital Signs 06/09/23 15:09 Height 5 ft 5 in Weight 173 lb BMI 28.8 BP 116/60 Blood Pressure Location Rt brachial Position Sitting Pulse 77 Pulse Source Pulse Oximeter Pulse Oximetry (%) 97 Oxygen Delivery Method Room Air Physical Exam Vital Signs: Last Vital Signs Pulse 77 06/09/23 15:09 BP 116/60 06/09/23 15:09 Pulse Ox 97 06/09/23 15:09 Oxygen Delivery Method Room Air 06/09/23 15:09 BMI result Body Mass Index 28.8 Const General: comfortable and no acute distress Orientation/consciousness: patient oriented x3 HEENT Head: Yes normocephalic Mouth: Normal oral and palatal mucosa present Eyes EOM: EOMs intact bilaterally Neck Neck: Yes supple Resp Auscultation: clear to auscultation bilaterally Cardio Jugular venous distension: no JVD Rate: regular rate GI Palpation (GI): Soft to palpation Auscultation: normal bowel sounds General: Yes no CVA tenderness Back/Spine/Pelvis Back: no CVA tenderness Skin General skin exam: no rashes or lesions noted Neuro General: patient oriented x3 and moves all extremities Extrem General: Yes edema Assessment & Plan Assessment & Plan (1) Chronic kidney disease, stage 3b: Code(s): N18.32 - Chronic kidney disease, stage 3b (2) Acute kidney injury: Code(s): N17.9 - Acute kidney failure, unspecified (3) Renal mass: Code(s): N28.89 - Other specified disorders of kidney and ureter Plan Margo has stage III B CKD at baseline. JOSE CARLOS was thought to be 2/2 to combination of recent gastroenteritis and also patient being on diuretics ( reported to be taking double doses than prescribed.) and contrast exposure on 04/09. She was initially started on biacrb infusion followed by LR at 125cc hr for few day and holding of her diuretics. Her serum creatinine improved from 8 to 3.2. She has cardiomyopathy. 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 She is hemodynamically stable and her volume status is optimal. Her diuretics were adjusted by [facility] cards. She should be on low-sodium diet. She should avoid nonsteroidal anti-inflammatory medications. Her renal functions are back to baseline. I did not make any medication changes today. She needs to follow-up with her urologist for her renal mass. Follow-up blood work was ordered. All questions were answered. Orders: Orders Creatinine Today N17.9 - Acute kidney failure, unspecified, N18.32 - Chronic kidney disease, stage 3b, N28.89 - Other specified disorders of kidney and ureter Electrolytes Today N17.9 - Acute kidney failure, unspecified, N18.32 - Chronic kidney disease, stage 3b, N28.89 - Other specified disorders of kidney and ureter Blood Urea Nitrogen Today N17.9 - Acute kidney failure, unspecified, N18.32 - Chronic kidney disease, stage 3b, N28.89 - Other specified disorders of kidney and ureter Coding Level of Care Code Est Pt Level 4 (46663) Diagnoses Chronic kidney disease, stage 3b N18.32 Acute kidney injury N17.9 Renal mass N28.89 Results Reviewed Nephrology Results: Hgb 7.2 g/dl (12.0-16.0) L 12/16/21 WBC 4.5 X10*3/uL (4.8-10.8) L 12/16/21 Plt Count 139 X10*3/uL (160-400) L 12/16/21 Sodium 140 mmol/L (135-145) 12/22/21 Potassium 3.6 mmol/L (3.3-5.1) 12/22/21 Chloride 102 mmol/L (96-108) 12/22/21 Carbon Dioxide 25 mmol/L (22-29) 12/22/21 BUN 14 mg/dL (9-16) 12/22/21 Creatinine 1.23 mg/dL (0.5-1.4) 12/22/21 Calcium 8.0 mg/dL (8.4-10.2) L 12/22/21 Urine Protein 30 (1+) mg/dL (Neg-Trace) H 12/16/21
== END 2023-06-09 15:46 | disposition home or self-care (01) ==
PROVIDERS: PCP Internal Medicine; Visit Provider Internal Medicine Nephrology
DX: N18.32 Chronic kidney disease, stage 3b (principal); N17.9 Acute kidney failure, unspecified; N28.89 Other specified disorders of kidney and ureter
CPT/HCPCS: 99214

== ENCOUNTER → 2023-06-09 15:05 | Outpatient (BNVA) | payer MEDICARE, OTHER, SELFPAY | PROVIDERS: PCP Internal Medicine; Visit Provider Internal Medicine Nephrology | DX: E11.22 Type 2 diabetes mellitus with diabetic chronic kidney disease (principal); I12.9 Hypertensive chronic kidney disease with stage 1 through stage 4 chronic kidney disease, or unspecified chronic kidney disease; N18.32 Chronic kidney disease, stage 3b; N17.9 Acute kidney failure, unspecified; N28.89 Other specified disorders of kidney and ureter | CPT/HCPCS: 99212 ==

== ENCOUNTER 2023-08-11 15:26 | Outpatient (AMB) | payer MEDICARE, OTHER, SELFPAY ==
--- NOTE | 2023-08-11 15:28 | HO.NEPHOV ---
Vital Signs 08/11/23 15:29 Height 5 ft 5 in Weight 175 lb 4 oz BMI 29.2 BP 122/64 Blood Pressure Location Lt brachial Position Sitting Pulse 70 Pulse Source Pulse Oximeter Pulse Oximetry (%) 97 Oxygen Delivery Method Room Air Intake Visit Reasons: 2 mon follow up/ Confirmed [employer] Supervisor Required: No Accompanied by: Daughter Allergies lisinopril [LISINOPRIL] Allergy (Severe, Verified 08/11/23 15:31) ANGIOEDEMA HPI Comments Details: I had the pleasure of seeing Margo in follow-up of her JOSE CARLOS on chronic kidney disease. She has medical history significant for CKD, CAD, ischemic cardiomyopathy with ICD, HFrEF, paroxysmal atrial fibrillation, HTN, T2DM, anemia, arthritis, urinary incontinence, secondary hyperparathyroidism, GERD . She was sent to the ER by PCP continuous nausea, abdominal pain, and diarrhea causing severe JOSE CARLOS superimposed on CKD. She was admitted for JOSE CARLOS superimposed [place] [facility] creatinine going up to 8.0. JOSE CARLOS was thought to be 2/2 to combination of recent gastroenteritis and also patient being on diuretics ( reported to be taking double doses than prescribed.) and contrast exposure on 04/09. She was initially started on biacrb infusion followed by LR at 125cc hr for few day and holding of her diuretics. creatinine improved / stable and was D/José Miguel home. She does not have any chest pain, shortness of breath, worsening pedal edema. She has no urinary symptoms. She has a renal mass and is followed by a urologist. She does not have any weight loss, hematuria, night sweats. She tries to be compliant with a low-sodium diet. Her weight has gone up and her diuretics were adjusted by cardiology. She was feeling tired and received 2 units of PRBC. [facility] Medical History (Updated 08/11/23 @ 15:55 by Jaspreet Menchaca MD) Acute kidney injury Secondary hyperparathyroidism Essential (primary) hypertension Renal mass Chronic kidney disease, stage 3b Surgical History History of knee replacement Family History Mother Heart disease Father Lung cancer Social History Alcohol intake: never Patient Tobacco Use Status: Former Tobacco user Physical Exam Vital Signs: Last Vital Signs Pulse 70 08/11/23 15:29 BP 122/64 08/11/23 15:29 Pulse Ox 97 08/11/23 15:29 Oxygen Delivery Method Room Air 08/11/23 15:29 BMI result Body Mass Index 29.2 Const General: comfortable and no acute distress Orientation/consciousness: patient oriented x3 HEENT Head: Yes normocephalic Mouth: Normal oral and palatal mucosa present Eyes EOM: EOMs intact bilaterally Neck Neck: Yes supple Resp Auscultation: clear to auscultation bilaterally Cardio Jugular venous distension: no JVD Rate: regular rate GI Palpation (GI): Soft to palpation Auscultation: normal bowel sounds General: Yes no CVA tenderness Back/Spine/Pelvis Back: no CVA tenderness Skin General skin exam: no rashes or lesions noted Neuro General: patient oriented x3 and moves all extremities Extrem General: Yes no pedal edema Results Reviewed Nephrology Results: Hgb 7.2 g/dl (12.0-16.0) L 12/16/21 WBC 4.5 X10*3/uL (4.8-10.8) L 12/16/21 Plt Count 139 X10*3/uL (160-400) L 12/16/21 Sodium 140 mmol/L (135-145) 12/22/21 Potassium 3.6 mmol/L (3.3-5.1) 12/22/21 Chloride 102 mmol/L (96-108) 12/22/21 Carbon Dioxide 25 mmol/L (22-29) 12/22/21 BUN 14 mg/dL (9-16) 12/22/21 Creatinine 1.23 mg/dL (0.5-1.4) 12/22/21 Calcium 8.0 mg/dL (8.4-10.2) L 12/22/21 Urine Protein 30 (1+) mg/dL (Neg-Trace) H 12/16/21 Assessment & Plan Assessment & Plan (1) Chronic kidney disease, stage 3b: Code(s): N18.32 - Chronic kidney disease, stage 3b Category: Medical (2) Anemia in chronic kidney disease (CKD): Code(s): N18.9 - Chronic kidney disease, unspecified; D63.1 - Anemia in chronic kidney disease Category: Medical Qualifiers: Chronic kidney disease stage: stage 4 (severe) Qualified Code(s): N18.4 - Chronic kidney disease, stage 4 (severe); D63.1 - Anemia in chronic kidney disease Plan Margo has stage III B CKD at baseline. 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 She is hemodynamically stable . Her volume status is sub optimal. Her diuretics were adjusted by [facility] cards. She should be on low-sodium diet. She should avoid nonsteroidal anti-inflammatory medications. Her renal functions are close baseline. She will be a candidate for Procrit soon. I did not make any medication changes today. She needs to follow-up with her urologist for her renal mass. Follow-up blood work was ordered. All questions were answered. Orders: Orders Creatinine Today D63.1 - Anemia in chronic kidney disease, N18.32 - Chronic kidney disease, stage 3b, N18.4 - Chronic kidney disease, stage 4 (severe) Blood Urea Nitrogen Today D63.1 - Anemia in chronic kidney disease, N18.32 - Chronic kidney disease, stage 3b, N18.4 - Chronic kidney disease, stage 4 (severe) Ferritin Today D63.1 - Anemia in chronic kidney disease, N18.32 - Chronic kidney disease, stage 3b, N18.4 - Chronic kidney disease, stage 4 (severe) Complete Blood Count Auto Diff Today D63.1 - Anemia in chronic kidney disease, N18.32 - Chronic kidney disease, stage 3b, N18.4 - Chronic kidney disease, stage 4 (severe) Electrolytes Today D63.1 - Anemia in chronic kidney disease, N18.32 - Chronic kidney disease, stage 3b, N18.4 - Chronic kidney disease, stage 4 (severe) IRON PROFILE Today D63.1 - Anemia in chronic kidney disease, N18.32 - Chronic kidney disease, stage 3b, N18.4 - Chronic kidney disease, stage 4 (severe) Coding Level of Care Code Est Pt Level 4 (49324) Diagnoses Chronic kidney disease, stage 3b N18.32 Anemia in stage 4 chronic kidney disease N18.4; D63.1 Chronic kidney disease stage: stage 4 (severe)
[2023-08-11 15:29] VITALS: BP 122/64; PULSE 70; O2SAT 97; BMI 29.2
== END 2023-08-11 16:00 | disposition home or self-care (01) ==
LOC: HO.HKA 15:26
PROVIDERS: PCP Internal Medicine; Visit Provider Internal Medicine Nephrology
DX: N18.32 Chronic kidney disease, stage 3b (principal); N18.4 Chronic kidney disease, stage 4 (severe); D63.1 Anemia in chronic kidney disease
CPT/HCPCS: 99214

== ENCOUNTER → 2023-08-11 15:26 | Outpatient (BNVA) | payer MEDICARE, OTHER, SELFPAY | PROVIDERS: PCP Internal Medicine; Visit Provider Internal Medicine Nephrology | DX: N18.4 Chronic kidney disease, stage 4 (severe) (principal); N17.9 Acute kidney failure, unspecified; D63.1 Anemia in chronic kidney disease | CPT/HCPCS: 99212 ==

== ENCOUNTER 2023-09-15 15:48 | Outpatient (AMB) | payer MEDICARE, OTHER, SELFPAY ==
[2023-09-15 15:56] VITALS: BP 122/62; PULSE 73; O2SAT 96; BMI 29.3
--- NOTE | 2023-09-15 15:56 | HO.NEPHOV ---
Vital Signs 09/15/23 15:56 Height 5 ft 5 in Weight 176 lb BMI 29.3 BP 122/62 Blood Pressure Location Lt brachial Position Sitting Pulse 73 Pulse Source Pulse Oximeter Pulse Oximetry (%) 96 Oxygen Delivery Method Room Air Intake Visit Reasons: 1 mo fu w/labs/ Conf Fashion Model Required: No Accompanied by: Daughter Allergies lisinopril [LISINOPRIL] Allergy (Severe, Verified 09/15/23 15:58) ANGIOEDEMA HPI Comments Details: Margo was seen in follow-up of her chronic kidney disease. She has medical history significant for CKD, CAD, ischemic cardiomyopathy with ICD, HFrEF, paroxysmal atrial fibrillation, HTN, T2DM, anemia, arthritis, urinary incontinence, secondary hyperparathyroidism, GERD . She recently had JOSE CARLOS superimposed [place] [facility] [place] going [place] to 8.0. JOSE CARLOS was thought to be 2/2 to combination of recent gastroenteritis and also patient being on diuretics ( reported to be taking double doses than prescribed.) and contrast exposure on 04/09. She was initially started on biacrb infusion followed by LR at 125cc hr for few day and holding of her diuretics. creatinine improved / stable and was D/José Miguel home. She does not have any chest pain, shortness of breath, worsening pedal edema. She has no urinary symptoms. She has a renal mass and is followed by a urologist. She does not have any weight loss, hematuria, night sweats. She tries to be compliant with a low-sodium diet. Her diuretics were adjusted by cardiology. [facility] Medical History (Updated 08/11/23 @ 15:55 by Jaspreet Menchaca MD) Acute kidney injury Secondary hyperparathyroidism Essential (primary) hypertension Renal mass Chronic kidney disease, stage 3b Surgical History History of knee replacement Family History Mother Heart disease Father Lung cancer Social History Alcohol intake: never Patient Tobacco Use Status: Former Tobacco user Review of Systems Const All systems reviewed & are unremarkable except as noted in HPI and below Physical Exam Vital Signs: Last Vital Signs Pulse 73 09/15/23 15:56 BP 122/62 09/15/23 15:56 Pulse Ox 96 09/15/23 15:56 Oxygen Delivery Method Room Air 09/15/23 15:56 BMI result Body Mass Index 29.3 Const General: comfortable and no acute distress Orientation/consciousness: patient oriented x3 HEENT Head: Yes normocephalic Mouth: Normal oral and palatal mucosa present Eyes EOM: EOMs intact bilaterally Neck Neck: Yes supple Resp Auscultation: clear to auscultation bilaterally Cardio Jugular venous distension: no JVD Rate: regular rate GI Palpation (GI): Soft to palpation Auscultation: normal bowel sounds General: Yes no CVA tenderness Back/Spine/Pelvis Back: no CVA tenderness Skin General skin exam: no rashes or lesions noted Neuro General: patient oriented x3 and moves all extremities Extrem General: Yes no pedal edema Results Reviewed Nephrology Results: Hgb 7.2 g/dl (12.0-16.0) L 12/16/21 WBC 4.5 X10*3/uL (4.8-10.8) L 12/16/21 Plt Count 139 X10*3/uL (160-400) L 12/16/21 Sodium 140 mmol/L (135-145) 12/22/21 Potassium 3.6 mmol/L (3.3-5.1) 12/22/21 Chloride 102 mmol/L (96-108) 12/22/21 Carbon Dioxide 25 mmol/L (22-29) 12/22/21 BUN 14 mg/dL (9-16) 12/22/21 Creatinine 1.23 mg/dL (0.5-1.4) 12/22/21 Calcium 8.0 mg/dL (8.4-10.2) L 12/22/21 Urine Protein 30 (1+) mg/dL (Neg-Trace) H 12/16/21 Assessment & Plan Assessment & Plan (1) Chronic kidney disease, stage 3b: Code(s): N18.32 - Chronic kidney disease, stage 3b Category: Medical (2) Anemia in chronic kidney disease (CKD): Code(s): N18.9 - Chronic kidney disease, unspecified; D63.1 - Anemia in chronic kidney disease Category: Medical Qualifiers: Chronic kidney disease stage: stage 4 (severe) Qualified Code(s): N18.4 - Chronic kidney disease, stage 4 (severe); D63.1 - Anemia in chronic kidney disease Plan Margo has stage III B CKD at baseline. She has had JOSE CARLOS's from cardiorenal syndrome with loss of GFR. She is hemodynamically stable . Her volume status is optimal. Her diuretics were adjusted by [facility] cards. She should be on low-sodium diet. She should avoid nonsteroidal anti-inflammatory medications. Her renal functions are close baseline. She will be a candidate for Procrit soon. I did not make any medication changes today. She needs to follow-up with her urologist for her renal mass. Follow-up blood work was ordered. All questions were answered. Orders: Orders Blood Urea Nitrogen 09/15/23 D63.1 - Anemia in chronic kidney disease, N18.32 - Chronic kidney disease, stage 3b, N18.4 - Chronic kidney disease, stage 4 (severe) Complete Blood Count Auto Diff 09/15/23 D63.1 - Anemia in chronic kidney disease, N18.32 - Chronic kidney disease, stage 3b, N18.4 - Chronic kidney disease, stage 4 (severe) Ferritin 09/15/23 D63.1 - Anemia in chronic kidney disease, N18.32 - Chronic kidney disease, stage 3b, N18.4 - Chronic kidney disease, stage 4 (severe) Creatinine 09/15/23 D63.1 - Anemia in chronic kidney disease, N18.32 - Chronic kidney disease, stage 3b, N18.4 - Chronic kidney disease, stage 4 (severe) Electrolytes 09/15/23 D63.1 - Anemia in chronic kidney disease, N18.32 - Chronic kidney disease, stage 3b, N18.4 - Chronic kidney disease, stage 4 (severe) Parathyroid Hormone Intact 09/15/23 D63.1 - Anemia in chronic kidney disease, N18.32 - Chronic kidney disease, stage 3b, N18.4 - Chronic kidney disease, stage 4 (severe) Vitamin D 25-OH Total 09/15/23 D63.1 - Anemia in chronic kidney disease, N18.32 - Chronic kidney disease, stage 3b, N18.4 - Chronic kidney disease, stage 4 (severe) Calcium 09/15/23 D63.1 - Anemia in chronic kidney disease, N18.32 - Chronic kidney disease, stage 3b, N18.4 - Chronic kidney disease, stage 4 (severe) IRON PROFILE 09/15/23 D63.1 - Anemia in chronic kidney disease, N18.32 - Chronic kidney disease, stage 3b, N18.4 - Chronic kidney disease, stage 4 (severe) Coding Level of Care Code Est Pt Level 4 (86058) Diagnoses Chronic kidney disease, stage 3b N18.32 Anemia in stage 4 chronic kidney disease N18.4; D63.1 Chronic kidney disease stage: stage 4 (severe)
== END 2023-09-15 16:12 | disposition home or self-care (01) ==
PROVIDERS: PCP Internal Medicine; Visit Provider Internal Medicine Nephrology
DX: N18.32 Chronic kidney disease, stage 3b (principal); N18.4 Chronic kidney disease, stage 4 (severe); D63.1 Anemia in chronic kidney disease
CPT/HCPCS: 99214

== ENCOUNTER → 2023-09-15 15:48 | Outpatient (BNVA) | payer MEDICARE, OTHER, SELFPAY | PROVIDERS: PCP Internal Medicine; Visit Provider Internal Medicine Nephrology | DX: N18.4 Chronic kidney disease, stage 4 (severe) (principal); D63.1 Anemia in chronic kidney disease | CPT/HCPCS: 99212 ==

== ENCOUNTER 2023-11-24 15:43 | Outpatient (AMB) | payer MEDICARE, OTHER, SELFPAY ==
[2023-11-24 16:32] VITALS: BP 110/60; PULSE 67; O2SAT 96
--- NOTE | 2023-11-24 16:32 | HO.NEPHOV_ITS ---
Vital Signs 11/24/23 16:32 Height 5 ft 5 in Weight 180 lb 4 oz BMI 30.0 BP 110/60 Blood Pressure Location Rt brachial Position Sitting Pulse 67 Pulse Source Pulse Oximeter Pulse Oximetry (%) 96 Oxygen Delivery Method Room Air Intake Visit Reasons: Anemia in chronic kidney disease Crane Ladle Person Required: No Accompanied by: Daughter Allergies lisinopril [LISINOPRIL] Allergy (Severe, Verified 11/24/23 16:34) ANGIOEDEMA HPI Comments Details: Margo was seen in follow-up of her chronic kidney disease. She has medical history significant for CKD, CAD, ischemic cardiomyopathy with ICD, HFrEF, paroxysmal atrial fibrillation, HTN, T2DM, anemia, arthritis, urinary incontine nce, secondary hyperparathyroidism, GERD . She recently had JOSE CARLOS superimposed on CKD in [facility] [place] with creatinine going up to 8.0. JOSE CARLOS was thought to be 2/2 to combination of recent gastroenteritis and also patient being on diuretics ( reported to be taking double doses than prescribed.) and contrast exposure on 04/09. Her creatinine improved / stable with supportive care. She does not have any chest pain, shortness of breath, worsening pedal edema. She has no urinary symptoms. She has a renal mass and is followed by a urologist. She does not have any weight loss, hematuria, night sweats. She tries to be compliant with a low-sodium diet. Her diuretics are adjusted by cardiology [facility] Medical History (Updated 11/24/23 @ 19:28 by Jaspreet Menchaca MD) Acute kidney injury Secondary hyperparathyroidism Essential (primary) hypertension Renal mass Chronic kidney disease, stage 3b Surgical History History of knee replacement Family History Mother Heart disease Father Lung cancer Social History Alcohol intake: never Patient Tobacco Use Status: Former Tobacco user Physical Exam Vital Signs: Last Vital Signs Pulse 67 11/24/23 16:32 BP 110/60 11/24/23 16:32 Pulse Ox 96 11/24/23 16:32 Oxygen Delivery Method Room Air 11/24/23 16:32 BMI result Body Mass Index 30.0 Const General: comfortable and no acute distress Orientation/consciousness: patient oriented x3 HEENT Head: Yes normocephalic Mouth: Normal oral and palatal mucosa present Eyes EOM: EOMs intact bilaterally Neck Neck: Yes supple Resp Auscultation: clear to auscultation bilaterally Cardio Jugular venous distension: no JVD Rate: regular rate GI Palpation (GI): Soft to palpation Auscultation: normal bowel sounds General: Yes no CVA tenderness Back/Spine/Pelvis Back: no CVA tenderness Skin General skin exam: no rashes or lesions noted Neuro General: patient oriented x3 and moves all extremities Extrem General: Yes no pedal edema Results Reviewed Nephrology Results: Hgb 7.2 g/dl (12.0-16.0) L 12/16/21 WBC 4.5 X10*3/uL (4.8-10.8) L 12/16/21 Plt Count 139 X10*3/uL (160-400) L 12/16/21 Sodium 140 mmol/L (135-145) 12/22/21 Potassium 3.6 mmol/L (3.3-5.1) 12/22/21 Chloride 102 mmol/L (96-108) 12/22/21 Carbon Dioxide 25 mmol/L (22-29) 12/22/21 BUN 14 mg/dL (9-16) 12/22/21 Creatinine 1.23 mg/dL (0.5-1.4) 12/22/21 Calcium 8.0 mg/dL (8.4-10.2) L 12/22/21 Urine Protein 30 (1+) mg/dL (Neg-Trace) H 12/16/21 Assessment & Plan Assessment & Plan (1) Chronic kidney disease, stage 3b: Code(s): N18.32 - Chronic kidney disease, stage 3b Category: Medical (2) Anemia in chronic kidney disease (CKD): Code(s): N18.9 - Chronic kidney disease, unspecified; D63.1 - Anemia in chronic kidney disease Category: Medical Qualifiers: Chronic kidney disease stage: stage 4 (severe) Qualified Code(s): N18.4 - Chronic kidney disease, stage 4 (severe); D63.1 - Anemia in chronic kidney disease (3) Secondary hyperparathyroidism: Code(s): N25.81 - Secondary hyperparathyroidism of renal origin Category: Medical (4) Essential (primary) hypertension: Code(s): I10 - Essential (primary) hypertension Category: Medical Plan Margo has stage III B CKD at baseline. She has had JOSE CARLOS's from cardiorenal syndrome with loss of GFR. She is hemodynamically stable . Her volume status is optimal. Her diuretics are adjusted by [facility] cards. She should be on low- sodium diet. She should avoid nonsteroidal anti-inflammatory medications. Her renal functions are close baseline. She will be a candidate for Procrit & activated Vitamin D soon. I did not make any medication changes today. She needs to follow-up with her urologist for her renal mass. Follow-up blood work was ordered. All questions were answered Coding Level of Care Code Est Pt Level 4 (00885) Diagnoses Chronic kidney disease, stage 3b N18.32 Anemia in stage 4 chronic kidney disease N18.4; D63.1 Chronic kidney disease stage: stage 4 (severe) Secondary hyperparathyroidism N25.81 Essential (primary) hypertension I10
== END 2023-11-24 16:58 | disposition home or self-care (01) ==
PROVIDERS: PCP Internal Medicine; Visit Provider Internal Medicine Nephrology
DX: I12.9 Hypertensive chronic kidney disease with stage 1 through stage 4 chronic kidney disease, or unspecified chronic kidney disease (principal); N18.32 Chronic kidney disease, stage 3b; N18.4 Chronic kidney disease, stage 4 (severe); D63.1 Anemia in chronic kidney disease; N25.81 Secondary hyperparathyroidism of renal origin
CPT/HCPCS: 99214

== ENCOUNTER → 2023-11-24 15:43 | Outpatient (BNVA) | payer MEDICARE, OTHER, SELFPAY | PROVIDERS: PCP Internal Medicine; Visit Provider Internal Medicine Nephrology | DX: I12.9 Hypertensive chronic kidney disease with stage 1 through stage 4 chronic kidney disease, or unspecified chronic kidney disease (principal); E11.22 Type 2 diabetes mellitus with diabetic chronic kidney disease; N18.4 Chronic kidney disease, stage 4 (severe); D63.1 Anemia in chronic kidney disease; N25.81 Secondary hyperparathyroidism of renal origin; I25.10 Atherosclerotic heart disease of native coronary artery without angina pectoris; I48.0 Paroxysmal atrial fibrillation | CPT/HCPCS: 99212 ==

== ENCOUNTER 2024-01-05 14:32 | Outpatient (AMB) | payer MEDICARE, OTHER, SELFPAY ==
[2024-01-05 14:39] VITALS: BP 132/70; BMI 28.9
--- NOTE | 2024-01-05 14:39 | HO.NEPHOV_ITS ---
Vital Signs 01/05/24 14:39 Height 5 ft 5 in Weight 173 lb 8 oz BMI 28.9 BP 132/70 Blood Pressure Location Lt brachial Position Sitting Intake Visit Reasons: 1 mon follow up/ no vm setup Brand Lead Required: No Accompanied by: Daughter Allergies lisinopril [LISINOPRIL] Allergy (Severe, Verified 01/05/24 14:41) ANGIOEDEMA HPI Comments Details: Margo was seen in follow-up of her chronic kidney disease. She has medical history significant for CKD, CAD, ischemic cardiomyopathy with ICD, HFrEF, paroxysmal atrial fibrillation, HTN, T2DM, anemia, arthritis, urinary incontinence, secondary hyperparathyroidism, GERD . She recently had JOSE CARLOS [place] [facility] [place] going up to 8.0. JOSE CARLOS was thought to be 2/2 to combination of recent gastroenteritis and also patient being on diuretics ( reported to be taking double doses than prescribed.) and contrast exposure on 04/09. Her creatinine improved / stable with supportive care. She does not have any chest pain, shortness of breath, worsening pedal edema. She has no urinary symptoms. She has a renal mass and is followed by a urologist. She does not have any weight loss, hematuria, night sweats. She tries to be compliant with a low-sodium diet. Her diuretics are adjusted by cardiology. She has a leg wound on the right lower leg which is healing [facility] Medical History (Updated 11/24/23 @ 19:28 by Jaspreet Menchaca MD) Acute kidney injury Secondary hyperparathyroidism Essential (primary) hypertension Renal mass Chronic kidney disease, stage 3b Surgical History History of knee replacement Family History Mother Heart disease Father Lung cancer Social History Alcohol intake: never Patient Tobacco Use Status: Former Tobacco user Review of Systems Const All systems reviewed & are unremarkable except as noted in HPI and below Physical Exam Const General: comfortable and no acute distress Orientation/consciousness: patient oriented x3 HEENT Head: Yes normocephalic Mouth: Normal oral and palatal mucosa present Eyes EOM: EOMs intact bilaterally Neck Neck: Yes supple Resp Auscultation: clear to auscultation bilaterally Cardio Jugular venous distension: no JVD Rate: regular rate GI Palpation (GI): Soft to palpation Auscultation: normal bowel sounds General: Yes no CVA tenderness Back/Spine/Pelvis Back: no CVA tenderness Skin General skin exam: no rashes or lesions noted Neuro General: patient oriented x3 and moves all extremities Extrem General: Yes no pedal edema Office Meds epoetin [id number] 10,000 unit/mL injection solution Performing Provider: Jaspreet Menchaca MD Performing Location: [facility] [place] [facility] [place] Administered by: Jaspreet Menchaca MD on 01/05/24 14:52 Dose Route Admin Location Dispensed Lot Number Expiration Date [facility] N[employer] 20,000 unit subcut LUE 2 mL [id number] 02/19/25 4238-8965-25 [employer] Results Reviewed Nephrology Results: No Data to Display Assessment & Plan Assessment & Plan (1) Anemia in chronic kidney disease (CKD): Code(s): N18.9 - Chronic kidney disease, unspecified; D63.1 - Anemia in chronic kidney disease Category: Medical Qualifiers: Chronic kidney disease stage: stage 4 (severe) Qualified Code(s): N18.4 - Chronic kidney disease, stage 4 (severe); D63.1 - Anemia in chronic kidney disease (2) Chronic kidney disease, stage 3b: Code(s): N18.32 - Chronic kidney disease, stage 3b Category: Medical (3) Renal mass: Code(s): N28.89 - Other specified disorders of kidney and ureter Category: Medical (4) Secondary hyperparathyroidism: Code(s): N25.81 - Secondary hyperparathyroidism of renal origin Category: Medical (5) Essential (primary) hypertension: Code(s): I10 - Essential (primary) hypertension Category: Medical Plan Margo has stage III B CKD at baseline. She has had JOSE CARLOS's from cardiorenal syndrome with loss of GFR. She is hemodynamically stable . Her volume status is optimal. Her diuretics are adjusted by [facility] cards. She should be on low- sodium diet. She should avoid nonsteroidal anti-inflammatory medications. Her renal functions are close baseline. I gave [id number] Units of Procrit in the office today. She will need activated Vitamin D soon. I did not make any other medication changes today. She needs to follow-up with her urologist for her renal mass. Follow-up blood work was ordered. All questions were answered Orders: Orders AMB Epoetin Injection Practice Supplied Today D63.1 - Anemia in chronic kidney disease, N18.4 - Chronic kidney disease, stage 4 (severe) Creatinine 2 Months D63.1 - Anemia in chronic kidney disease, N18.32 - Chronic kidney disease, stage 3b, N18.4 - Chronic kidney disease, stage 4 (severe) Blood Urea Nitrogen 2 Months D63.1 - Anemia in chronic kidney disease, N18.32 - Chronic kidney disease, stage 3b, N18.4 - Chronic kidney disease, stage 4 (severe) Complete Blood Count Auto Diff 2 Months D63.1 - Anemia in chronic kidney disease, N18.32 - Chronic kidney disease, stage 3b, N18.4 - Chronic kidney disease, stage 4 (severe) Electrolytes 2 Months D63.1 - Anemia in chronic kidney disease, N18.32 - Chronic kidney disease, stage 3b, N18.4 - Chronic kidney disease, stage 4 (severe) Coding Level of Care Code Est Pt Level 4 (49963) Diagnoses Anemia in stage 4 chronic kidney disease N18.4; D63.1 Chronic kidney disease stage: stage 4 (severe) Chronic kidney disease, stage 3b N18.32 Renal mass N28.89 Secondary hyperparathyroidism N25.81 Essential (primary) hypertension I10
== END 2024-01-05 14:58 | disposition home or self-care (01) ==
PROVIDERS: PCP Internal Medicine; Visit Provider Internal Medicine Nephrology
DX: I12.9 Hypertensive chronic kidney disease with stage 1 through stage 4 chronic kidney disease, or unspecified chronic kidney disease (principal); N18.4 Chronic kidney disease, stage 4 (severe); D63.1 Anemia in chronic kidney disease; N28.89 Other specified disorders of kidney and ureter; N25.81 Secondary hyperparathyroidism of renal origin
CPT/HCPCS: 99214

== ENCOUNTER → 2024-01-05 14:32 | Outpatient (BNVA) | payer MEDICARE, OTHER, SELFPAY | PROVIDERS: PCP Internal Medicine; Visit Provider Internal Medicine Nephrology | DX: I12.9 Hypertensive chronic kidney disease with stage 1 through stage 4 chronic kidney disease, or unspecified chronic kidney disease (principal); E11.22 Type 2 diabetes mellitus with diabetic chronic kidney disease; N18.4 Chronic kidney disease, stage 4 (severe); D63.1 Anemia in chronic kidney disease; I25.10 Atherosclerotic heart disease of native coronary artery without angina pectoris; I25.5 Ischemic cardiomyopathy; I48.0 Paroxysmal atrial fibrillation; N25.81 Secondary hyperparathyroidism of renal origin | CPT/HCPCS: 96372; 99212; Q5106 ==

== ENCOUNTER 2024-03-24 11:29 | Outpatient (AMB) | payer MEDICARE, OTHER, SELFPAY ==
[2024-03-24 11:29] VITALS: BP 124/62; PULSE 69; O2SAT 95; BMI 28.3
--- NOTE | 2024-03-24 11:29 | HO.NEPHOV_ITS ---
Vital Signs 03/24/24 11:29 Height 5 ft 5 in Weight 170 lb BMI 28.3 BP 124/62 Blood Pressure Location Rt brachial Position Sitting Pulse 69 Pulse Source Pulse Oximeter Pulse Oximetry (%) 95 Oxygen Delivery Method Room Air Intake Visit Reasons: 2mon follow up-Conf Emergency Management System Director Required: No Accompanied by: Daughter Allergies lisinopril [LISINOPRIL] Allergy (Severe, Verified 03/24/24 11:32) ANGIOEDEMA HPI Comments Details: Margo was seen in follow-up of her chronic kidney disease. She has medical history significant for CKD, CAD, ischemic cardiomyopathy with ICD, HFrEF, paroxysmal atrial fibrillation, HTN, T2DM, anemia, arthritis, urinary incontinence, secondary hyperparathyroidism, GERD . She has H/O JOSE CARLOS superimposed on CKD with creatinine going up to 8.0. JOSE CARLOS was thought to be 2/2 to combination of recent gastroenteritis and also patient being on diuretics ( reported to be taking double doses than prescribed.) and contrast exposure on 04/09. Her creatinine improved / stable with supportive care. She does not have any chest pain, shortness of breath, worsening pedal edema. She has no urinary symptoms. She has a renal mass and is followed by a urologist. She does not have any weight loss, hematuria, night sweats. She tries to be compliant with a low-s odium diet. Her diuretics are adjusted by cardiology. [facility] Medical History (Updated 11/24/23 @ 19:28 by Jaspreet Menchaca MD) Acute kidney injury Secondary hyperparathyroidism Essential (primary) hypertension Renal mass Chronic kidney disease, stage 3b Surgical History History of knee replacement Family History Mother Heart disease Father Lung cancer Social History Alcohol intake: never Patient Tobacco Use Status: Former Tobacco user Review of Systems Const All systems reviewed & are unremarkable except as noted in HPI and below Physical Exam Vital Signs: Last Vital Signs Pulse 69 03/24/24 11:29 BP 124/62 03/24/24 11:29 Pulse Ox 95 03/24/24 11:29 Oxygen Delivery Method Room Air 03/24/24 11:29 BMI result Body Mass Index 28.3 Const General: comfortable and no acute distress Orientation/consciousness: patient oriented x3 HEENT Head: Yes normocephalic Mouth: Normal oral and palatal mucosa present Eyes EOM: EOMs intact bilaterally Neck Neck: Yes supple Resp Auscultation: clear to auscultation bilaterally Cardio Jugular venous distension: no JVD Rate: regular rate GI Palpation (GI): Soft to palpation Auscultation: normal bowel sounds General: Yes no CVA tenderness Back/Spine/Pelvis Back: no CVA tenderness Skin General skin exam: no rashes or lesions noted Neuro General: patient oriented x3 and moves all extremities Extrem General: Yes no pedal edema Office Meds epoetin [id number]-epbx 10,000 unit/mL injection solution Performing Provider: Jaspreet Menchaca MD Performing Location: [facility] [place] [facility] Administered by: Jaspreet Menchaca MD on 03/24/24 11:59 Dose Route Admin Location Dispensed Lot Number Expiration Date [facility] Horse [employer]erciser 40,000 unit subcut LUE 4 mL [id number] 07/20/25 1366-6118-33 [employer] Results Reviewed Nephrology Results: No Data to Display Assessment & Plan Assessment & Plan (1) Anemia in chronic kidney disease (CKD): Code(s): N18.9 - Chronic kidney disease, unspecified; D63.1 - Anemia in chronic kidney disease Category: Medical Qualifiers: Chronic kidney disease stage: stage 4 (severe) Qualified Code(s): N18.4 - Chronic kidney disease, stage 4 (severe); D63.1 - Anemia in chronic kidney disease (2) Secondary hyperparathyroidism: Code(s): N25.81 - Secondary hyperparathyroidism of renal origin Category: Medical (3) Essential (primary) hypertension: Code(s): I10 - Essential (primary) hypertension Category: Medical (4) Renal mass: Code(s): N28.89 - Other specified disorders of kidney and ureter Category: Medical (5) Chronic kidney disease, stage 3b: Code(s): N18.32 - Chronic kidney disease, stage 3b Category: Medical Plan Margo has stage III B CKD at baseline. She has had JOSE CARLOS's from cardiorenal syndrome with loss of GFR. She is hemodynamically stable . Her volume status is optimal. Her diuretics are adjusted by [facility] cards. She should be on low- sodium diet. She should avoid nonsteroidal anti-inflammatory medications. Her renal functions are close baseline. I gave [id number] Units of Procrit in the office today. She will need activated Vitamin D soon. I shall explore whether she is a candidate for SGLT2 i after a 24 hour urine collection . I did not make any other medication changes today. She needs to follow-up with her urologist for her renal mass. All questions were answered Orders: Orders AMB Epoetin Injection Practice Supplied 03/24/24 D63.1 - Anemia in chronic kidney disease, N18.4 - Chronic kidney disease, stage 4 (severe) Complete Blood Count Auto Diff 6 Weeks D63.1 - Anemia in chronic kidney disease, N18.4 - Chronic kidney disease, stage 4 (severe) Coding Level of Care Code Est Pt Level 4 (72837) Diagnoses Anemia in stage 4 chronic kidney disease N18.4; D63.1 Chronic kidney disease stage: stage 4 (severe) Secondary hyperparathyroidism N25.81 Essential (primary) hypertension I10 Renal mass N28.89 Chronic kidney disease, stage 3b N18.32
--- OUTSIDE RECORDS SUMMARY | 2024-03-24 13:16 | XMS_ITS | Continuity of Care Document ---
Author Organization [facility] Adult Address [address] [place] [address]- Support Name Relationship Address Phone ANI PEREZ child Unknown Unavailable TORRES, CHASE Personal Relationship Unknown Unav ailable TORRES, CHASE Personal Relationship Unknown Unav ailable TORRES, CHASE Personal Relationship Unknown Unav ailable TORRES, CHASE Personal Relationship Unknown Unav ailable TORRES, CHASE Personal Relationship Unknown Unav ailable TORRES, CHASE Personal Relationship Unknown Unav ailable TORRES, CHASE Personal Relationship Unknown Unav ailable TORERS, CHASE Personal Relationship Unknown Unav ailable TORRES, CHASE Personal Relationship Unknown Unav ailable TORRES, CHASE Personal Relationship Unknown Unav ailable TORRES, CHASE Personal Relationship Unknown Unav ailable TORRES, CHASE Personal Relationship Unknown Unav ailable TORRES, CHASE Personal Relationship Unknown Unav ailable TORRES, CHASE Personal Relationship Unknown Unav ailable TORRES, CHASE Personal Relationship Unknown Unav ailable TORRES, CHASE Personal Relationship Unknown Unav ailable STEFFANY FUENTES child Unknown Unavailable TORRES, CHASE Personal Relationship Unknown Unav ailable TORRES, CHASE Personal Relationship Unknown Unav ailable TORRES, CHASE Personal Relationship Unknown Unav ailable TORRES, CHASE Personal Relationship Unknown Unav ailable TORRES, CHASE Personal Relationship Unknown Unav ailable TORRES, M Personal Relationship Unknown Unavai lable TORRES, CHASE Personal Relationship Unknown Unav ailable TORRES, CHASE Personal Relationship Unknown Unav ailable TORRES, CHASE Personal Relationship Unknown Unav ailable TORRES, BEVERLY Personal Relationship Unknown U navailable TORRES, CHASE Personal Relationship Unknown Unav ailable TORRES, CHASE Personal Relationship Unknown Unav ailable TORRES, CHASE Personal Relationship Unknown Unav ailable TORRES, CHASE Personal Relationship Unknown Unav ailable TORRES, CHASE Personal Relationship Unknown Unav ailable TORRES, BEVERLY Personal Relationship Unknown U navailable BRIAN, CHASE Personal Relationship Unknown Unav ailable TORRES, CHASE Personal Relationship Unknown Unav ailable TORRES, CHASE Personal Relationship Unknown Unav ailable TORRES, BEVERLY Personal Relationship Unknown U navailable Care Team Providers Care Painter Shipyard Name Role Phone Mannie MUÑOZ, Vee Primary Care Physician Encounter [facility] Date(s): 01/31/24 - 03/01/24 [facility] Adult [address] [place] [address]- Encounter Type: Triage Allergies, Adverse Reactions, Alerts Substance Criticality Severity Reaction Reaction Severity Status lisinopril cough,chest tightness Active Dilaudid 1 Hallucinations Acti ve 1Hallucinations Immunizations Given and Recorded Vaccine Date Status Refusal Reason influenza virus vaccine, inactivated 01/02/22 Give n influenza virus vaccine, inactivated 01/02/21 Give n influenza virus vaccine, inactivated 12/19/19 Oracio rded influenza virus vaccine, inactivated 1 02/03/18 Gi tobi influenza virus vaccine, inactivated 2 02/04/17 Gi tobi influenza virus vaccine, inactivated 02/04/16 Give n influenza virus vaccine, inactivated 05/06/13 Give n influenza virus vaccine, inactivated 3 01/21/07 Gi tobi SARS-CoV-2 (COVID-19) mRNA BNT-162b2 vac 02/04/21 Recorded SARS-CoV-2 (COVID-19) Ad26 vaccine 06/19/20 Record ed pneumococcal 13-valent vaccine 08/09/14 Given pneumococcal 13-valent vaccine 08/09/14 Given tetanus/diphtheria/pertussis, acel(Tdap) 02/12/14 Given Fluzone (oldterm) 4 12/26/13 Given pneumococcal 23-valent vaccine 05/06/13 Given Influenza Virus Vaccine (oldterm) 5 05/15/08 Given Pneumococcal Vaccine (oldterm) 6 10/29/05 Given 1Result Comment: [facility] [place] [id number] 2Result Comment: [facility] [place] [phone] 3Admin Note: VIS GIVEN 4Admin Note: [facility] VIS reviewed 5Admin Note: vis given 6Admin Note: vis given Medications Albuterol (Eqv-Ventolin HFA) 90 mcg/inh inhalation aerosol 2 puffs, Inhalation, Every 6 hours, # 8.5 Gm, 0 Refills, Maintenance, 03/11/23 9:03:00 AM EST, [id number], Partial fill upon patient request if the prescription is for a schedule II opioid drug., 2 puffs Inhalation Every 6 hours, 152, cm, 03/10/23 15:01:00 EST, Height, 74.4, kg, 12/15/21 6:29:00 EDT, Dry Weight Start Date: 03/11/23 Status: Ordered Quantity: 8.5 Unit: g Repeat number: 1 allopurinol 100 mg oral tablet 0.5, tablet, By Mouth, Daily, # 45 tablet, Refills 1, Tot. Refills 1, Maintenance, 09/27/23 9:22:00 PM EDT, Route to Pharmacy Electronically, [facility], 160, cm, 08/13/23 11:09:00 EDT, Height, 72, kg, 04/15/23 22:25:00 EST, Dry Weight Start Date: 09/27/23 Status: Ordered Quantity: 45.0 Unit: tablet Repeat number: 2 atorvastatin 80 mg oral tablet 1 tablet, By Mouth, Daily at bedtime, # 90 tablet, 1 Refills, Maintenance, 10/19/23 11:08:00 AM EDT,[facility], 157.9, cm, 10/14/23 16:09:00 EDT, Height, 72, kg, 04/15/23 22:25:00 EST, Dry Weight Start Date: 10/19/23 Status: Ordered Quantity: 90.0 Unit: tablet Repeat number: 2 calcitriol 0.25 mcg oral capsule 1 capsule, By Mouth, Daily, # 30 capsule, 11 Refills, Maintenance, 08/25/23 12:54:00 PM EDT, [facility], 160, cm, 08/13/23 11:09:00 EDT, Height, 72, kg, 04/15/23 22:25:00 EST, Dry Weight Start Date: 08/25/23 Status: Ordered Quantity: 30.0 Unit: capsule Repeat number: 1 Depends and pads Depends and pads, See Instructions, # 180 each, Refills 11, Tot. Refills 11, Maintenance, ADULT EXTRA LARGE, USE 6X QD, DX URINRY INCONTINENCE R39.81, SIM 99 VENU [phone], 02/13/22 2:43:00 PM EST, Supply Start Date: 02/13/22 Status: Ordered Quantity: 180.0 Unit: each Repeat number: 12 Indication: Unspecified urinary incontinence Doculase By Mouth, Daily, 0 Refills, Maintenance, 04/28/23 9:43:00 AM EST, Partial fill upon patient request if the prescription is for a schedule II opioid drug. Start Date: 04/28/23 Status: Ordered Repeat number: 1 ergocalciferol 97325 iu oral capsule 50,000 International_Units, 1, capsule, By Mouth, Every week, Take 1 capsule of the 50,000 weekly for the next 8 weeks followed by [id number] 2000 international units of vitamin D daily, # 8 capsule, Refills 0, Tot. Refills 0, Maintenance, 07/31/23 4:09:00 PM EDT, Route to Pharmacy Electronically, [facility], Partial fill upon patient request if the prescription is for a schedule II opioid drug., 160, cm, 07/29/23 14:25:00 EDT, Height, 72, kg, 04/15/23 22:25:00 EST, Dry Weight Start Date: 07/31/23 Stop Date: 09/25/23 Status: Ordered Quantity: 8.0 Unit: capsule Repeat number: 1 Flonase 50 mcg/inh nasal spray 1 sprays, Nares, Both, 2 times a day, PRN Nasal Congestion, # 16 Gm, 0 Refills, Maintenance, 09/02/22 2:25:00 PM EDT, [place], [facility], Partial fill upon patient request if the prescription is for a schedule II opioid drug., 1 sprays Nares, Both 2 times a day,PRN:Nasal Congestion, 152, cm, 09/02/22 13:57:00 EDT, Height, 74.4, kg, 12/15/21 6:29:00 EDT, Dry Weight Start Date: 09/02/22 Status: Ordered Quantity: 16.0 Unit: g Repeat number: 1 Indication: Postnasal drip Freestyle Lite Lancets See Instructions, # 100 each, Refills 3, Tot. Refills 3, Maintenance, use to check glucose once daily for dx DM type 2, 01/06/22 9:40:00 AM EDT, Supply, 173, cm, 01/02/22 9:41:00 EDT, Height, 74.4, kg, 12/15/21 6:29:00 EDT, Dry Weight Start Date: 01/06/22 Status: Ordered Quantity: 100.0 Unit: each Repeat number: 4 Indication: Type 2 diabetes mellitus without complications Freestyle Lite Monitor See Instructions, # 1 each, Refills 0, Tot. Refills 0, Maintenance, use as directed to check glucose daily for dx DM type 2, 01/06/22 9:39:00 AM EDT, Supply, 173, cm, 01/02/22 9:41:00 EDT, Height, 74.4, kg, 12/15/21 6:29:00 EDT, Dry Weight Start Date: 01/06/22 Status: Ordered Quantity: 1.0 Unit: each Repeat number: 1 Indication: Type 2 diabetes mellitus without complications Freestyle Lite Test Strips See Instructions, # 100 each, Refills 3, Tot. Refills 3, Maintenance, use to check glucose once daily for dx DM type 2, 01/06/22 9:41:00 AM EDT, Supply, 173, cm, 01/02/22 9:41:00 EDT, Height, 74.4, kg, 12/15/21 6:29:00 EDT, Dry Weight Start Date: 01/06/22 Status: Ordered Quantity: 100.0 Unit: each Repeat number: 4 Indication: Type 2 diabetes mellitus without complications INCONTINENCE PADS INCONTINENCE PADS, See Instructions, # 300 each, Refills 11, Tot. Refills 11, Maintenance, ADULT EXTRA LARGE, USE 10X QD, DX URINRY INCONTINENCE R39.81, SIM 99 RICK AND MARIE [phone], 02/13/22 2:45:00 PM EST, Supply Start Date: 02/13/22 Status: Ordered Quantity: 300.0 Unit: each Repeat number: 12 Liquid Calcium with Vitamin D 1000 mg-10 mcg/30 mL oral liquid See Instructions, TAKE 30MLS (2 TABLESPOONS) BY MOUTH ONCE DAILY, # 2,838 Unknown, 0 Refills, Maintenance, 09/21/23 12:03:00 PM EDT, [facility], 94, TAKE 30MLS (2 TABLESPOONS) BY MOUTH ONCE DAILY, 160, cm, 08/13/23 11:09:00 EDT, Height, 72, kg, 04/15/23 22:25:00 EST, Dry Weight Start Date: 09/21/23 Status: Ordered Quantity: 2838.0 Unit: Unknown Repeat number: 1 loratadine 10 mg oral tablet 10 mg, 1, tablet, By Mouth, Daily, PRN, # 30 tablet, Refills 0, Tot. Refills 0, Maintenance, allergies, 06/21/23 8:38:00 AM EDT, Route to Pharmacy Electronically, [facility], Partialfill upon patient request if the prescription is for a schedule II opioid drug., 160, cm, 05/27/23 15:54:00 EST, Height, 72, kg, 04/15/23 22:25:00 EST, Dry Weight Start Date: 06/21/23 Stop Date: 07/21/23 Status: Ordered Quantity: 30.0 Unit: tablet Repeat number: 1 Melatonin 2 TABLETS, By Mouth, Daily at bedtime, 0 Refills, Maintenance, 04/28/23 9:43:00 AM EST, Partial fill upon patient request if the prescription is for a schedule II opioid drug. Start Date: 04/28/23 Status: Ordered Repeat number: 1 Metoprolol Succinate ER 100 mg oral tablet, extended release 1 tablet, By Mouth, Daily, # 30 tablet, 11 Refills, Maintenance, 11/30/23 7:46:00 AM EDT, [facility], 157.9, cm, 10/14/23 16:09:00 EDT, Height, 72, kg, 04/15/23 22:25:00 EST, Dry Weight Start Date: 11/30/23 Status: Ordered Quantity: 30.0 Unit: tablet Repeat number: 1 Myrbetriq 50 mg oral tablet, extended release See Instructions, TAKE 1 TABLET DAILY (NEED APPOINTMENT FOR FURTHER REFILLS), # 90 tablet, 3 Refills, Maintenance, 11/02/23 8:20:00 AM EDT, [facility], 157.9, cm, 10/14/23 16:09:00 EDT, Height, 72, kg, 04/15/23 22:25:00 EST, Dry Weight Start Date: 11/02/23 Status: Ordered Quantity: 90.0 Unit: tablet Repeat number: 1 nitroglycerin 0.4 mg sublingual tablet 1 tablet = 0.4 mg, Sublingual, Every 5 minutes, PRN as needed for chest pain, not to exceed 3 doses/15 min--if pain persists, seek medical attention, # 100 tablet, 0 Refills, Maintenance, 03/05/22 1:54:00 PM EST, Tablet, Partial fill upon patient request if the prescription is for a schedule II opioid drug. Start Date: 03/05/22 Status: Ordered Quantity: 100.0 Unit: tablet Repeat number: 1 pantoprazole 40 mg oral delayed release tablet 1 tablet, By Mouth, Daily, # 90 tablet, 1 Refills, Maintenance, 02/02/24 1:39:00 PM EST, 157.9, cm,12/21/23 15:16:00 EDT, Height, 72, kg, 04/15/23 22:25:00 EST, Dry Weight Start Date: 02/02/24 Status: Ordered Quantity: 90.0 Unit: tablet Repeat number: 1 spironolactone 25 mg oral tablet 12.5 mg, 0.5, tablet, By Mouth, Daily, # 60 tablet, Refills 0, Tot. Refills 0, Maintenance, 04/28/23 8:49:00 AM EST, Route to Pharmacy Electronically, [facility], Partial fill upon patient request if the prescription is for a schedule II opioid drug., 160, cm, 04/21/23 13:55:00 EST, Height, 72, kg, 04/15/23 22:25:00 EST, Dry Weight Start Date: 04/28/23 Status: Ordered Quantity: 60.0 Unit: tablet Repeat number: 1 torsemide 20 mg oral tablet See Instructions, take 20 mgs tablet twice daily x 4 days wed - - alternating with two 20mgs tablets in am and 1 tablet in pm x 3 days Wednesday - wednesday call office if wts > 175 lbs, # 120 tablet, 6 Refills, Maintenance, 04/26/23 8:19:00 AM EST, [facility], Partial fill upon patient request if the prescription is for a schedule II opioid drug., 160, cm, 04/21/23 13:55:00 EST, Height, 72, kg, 04/15/23 22:25:00 EST, Dry Weight Start Date: 04/26/23 Status: Ordered Quantity: 120.0 Unit: tablet Repeat number: 7 Vitamin B12 1000 mcg oral tablet 1 tablet = 1,000 mcg, By Mouth, Daily, 0 Refills, Maintenance, 04/15/23 12:43:00 PM EST, Tablet, Partial fill upon patient request if the prescription is for a schedule II opioid drug. Start Date: 04/15/23 Status: Ordered Repeat number: 1 Problem List Condition Confirmation Course Effective Dates Status Health Status Informant Anemia Confirmed Active Arthritis of right ankle Confirmed Active Carpal tunnel syndrome, bilateral Confirmed Active Chronic kidney disease, stage 4 (severe) 1 Confirmed Active Colonic polyp 2 Confirmed Active CAD (coronary artery disease) Confirmed Active Degenerative cervical disc Confirmed Active Lumbar degenerative disc disease Confirmed Active Urinary incontinence Confirmed Active GERD (gastroesophageal reflux disease) Confirmed Active Ischemic cardiomyopathy with implantable cardioverter-defibrillato r (ICD) Confirmed Active History of gout Confirmed Active Heart failure with reduced ejection fraction Confirmed Active Hypercholesterolemia Confirmed Active Hypertension Confirmed Active Kidney stone on left side Confirmed Active OA - Osteoarthritis of knee Confirmed Active Obese class I Confirmed Active MARCI (obstructive sleep apnea) Confirmed 2013 Active Osteoporosis 3 Confirmed Active PAF (paroxysmal atrial fibrillation) Confirmed Active Advanced directives, counseling/discussion Confirmed Active Renal mass, right 4 Confirmed 05/30/13 Active Secondary hyperparathyroidism 5 Confirmed Active Type 2 diabetes mellitus with chronic kidney disease Confirmed Active Uterovaginal prolapse Confirmed Active 1Per chart review meets GFR criteria 2colonoscopy 10/23, tubular adenoma, repeat Q5 yr 3dexascan 02/22 4Followed [facility], 4.5 cm stable no surgical intervwntion given co-morbidities, 2-[address] Dalal/ [facility] Social History Social History Type Response Smoking Status Former smoker; Tobac co user in household: No; Other: start age 40 quit 2013; entered on: 01/07/18 Sex Sex Representation Female (finding) Patient Care team information Care Team Personnel Name: Alejo Cadet MD Position: [facility] Physician - Gastroenterology Member Role: Lifetime Consulting Physician Address: [address] [place] [address], [address] [facility] [address] Telecom: Name: Rafita Edward MD Position: [facility] Renal MD Member Role: Lifetime Consulting Physician Address: [address] [place] [address] [address] [facility] [address]- Telecom: Name: Prashanth Rose RN Position: [facility] RN Member Role: Primary Care Nurse Name: Dorothea Wang RN Position: [facility] RN Member Role: Primary Care Nurse Name: Ledy Forbes RN Position: [facility] SN RN Member Role: Primary Care Nurse Name: Kavita Pagan RN Position: [facility] Onco RN Member Role: Primary Care Nurse Name: Prashanth Carmona RN Position: [facility] RN Member Role: Primary Care Nurse Name: Jaspreet Menchaca MD Position: [facility] Renal MD Member Role: Lifetime Consulting Physician Address: [address] [place] [address] [address] [facility] [place], [place] [address] Telecom: Name: Maryam Ayers RN Position: [facility] ED RN W/OE and Tasks Member Role: Primary Care Nurse Name: Maxine Diallo RN Position: [facility] RN Member Role: Primary Care Nurse Name: Estephanie Carballo RN Position: [facility] RN Member Role: Primary Care Nurse Name: Odalys Chau RN Position: [facility] SN RN Member Role: Primary Care Nurse Name: Johnna Wyman CNM Position: [facility] Vegetable Tester Member Role: Primary Care Nurse Address: [address] [place] [id number] Telecom: Name: Reji Willson RN Position: [facility] RN Member Role: Primary Care Nurse Name: Katie Holden RN Position: [facility] AMB Nurse Member Role: Primary Care Nurse Name: Evelyne Garcia RN Position: [facility] RN Member Role: Primary Care Nurse Name: Sol Nobles Position: [facility] AMB Nurse Member Role: Lifetime Consulting Physician Name: Johnna Baker RN Position: [facility] RN Member Role: Primary Care Nurse Name: Fantasma Ac RN Position: [facility] SN RN Member Role: Primary Care Nurse Name: Shanda Sharp RN Position: [facility] RN Member Role: Primary Care Nurse Name: Sabi Ruiz Position: [facility] operation manager Member Role: Cargo Service Supervisor Name: Mannie MUÑOZ, Vee Position: [facility] Physician - Primary Care Member Role: PCP Address: [address] [facility] [address] [place] [address]- [place] Telecom: Name: Ta Kolb RN Position: [facility] ED RN W/OE and Tasks Member Role: Primary Care Nurse Name: Neftaly Morley MD Position: [facility] Outreach Member Role: Lifetime Consulting Physician Address: [address] [facility] [place] [address]- Telecom: Name: Eva Cmaarena RN Position: [facility] Office Staff Member Role: Primary Care Nurse Name: Brenda Brown RN Position: [facility] SN RN Member Role: Primary Care Nurse Name: David Mcwilliams MD Position: [facility] Renal MD Member Role: Lifetime Consulting Physician Address: [address] [facility] [address] [facility] [place] [address]- [place] Telecom: Name: Michelle Castillo RN Position: [facility] RN Member Role: Primary Care Nurse Name: Sabi Grady RN Position: [facility] RN Member Role: Primary Care Nurse Name: Sheryl Gaytan Position: [facility] RN Member Role: Primary Care Nurse Care Team Related Persons Name: ANI PEREZ Name: STEFFANY FUENTES Insurance Providers Guarantor name: BEVERLY TORRES Health Plan Information #: 1 Payer: MEDICARE PART B OUTPT Member Number: NA Policy Number: NA Group Number: NA Health Plan Information #: 2 Payer: [employer] LIFE MCR A ONLY Member Number: NA Policy Number: NA Group Number: NA
--- OUTSIDE RECORDS SUMMARY | 2024-03-24 13:16 | XMS_ITS | Continuity of Care Document ---
Author Organization [facility] Address [address] [place] [address]- Support Name Relationship Address Phone ANI PEREZ [...] CHASE Personal Relationship Unknown Unav ailable TORRES, CAHSE Personal Relationship Unknown Unav ailable TORRES, CHASE [...] TORRES, CHASE Personal Relationship Unknown Unav ailable BRIAN, BEVERLY Personal Relationship Unknown U navailable BRIAN, CHASE Personal Relationship Unknown Unav ailable BRIAN, CHASE Personal Relationship Unknown Unav ailable BRIAN, CHASE Personal Relationship Unknown Unav ailable BRIAN, BEVERLY Personal Relationship Unknown U navailable Care Team Providers Care Crate Liner Name Role Phone Mannie MUÑOZ, Vee Primary Care Physician Encounter [facility] [id number] Date(s): 11/16/23 - 03/15/24 [facility] [address] [place] [id number] Attending Physician: Natty Aguilar MD Admitting Physician: Natty Aguilar MD Referring Physician: Vee Chand MD Encounter Type: Pre-OutPatient One Time Allergies, Adverse Reactions, Alerts Substance Criticality Severity [...] Vaccine (oldterm) 6 10/29/05 Given 1Result Comment: [facility] [id number] 2Result Comment: [facility] [id number] 3Admin Note: VIS GIVEN 4Admin Note: [facility] VIS reviewed 5Admin Note: vis given 6Admin Note: vis given Medications Albuterol (Eqv-Ventolin HFA) 90 mcg/inh inhalation aerosol 2 puffs, Inhalation, Every 6 hours, # 8.5 Gm, 0 Refills, Maintenance, 03/11/23 9:03:00 AM EST, [facility], Partial fill upon patient request [...] 9:22:00 PM EDT, Route to Pharmacy Electronically, [facility], 160, cm, 08/13/23 11:09:00 EDT, Height, 72, kg, 04/15/23 22:25:00 EST, Dry Weight Start Date: 09/27/23 Status: Ordered Quantity: 45.0 Unit: tablet Repeat number: 2 atorvastatin 80 mg oral tablet 1 tablet, By Mouth, Daily at bedtime, # 90 tablet, 1 Refills, Maintenance, 10/19/23 11:08:00 AM EDT,[facility], 157.9, cm, 10/14/23 16:09:00 EDT, [...] DX URINRY INCONTINENCE R39.81, SIM 99 VENU [phone], 02/13/22 2:43:00 PM EST, Supply Start Date: 02/13/22 Status: Ordered Quantity: 180.0 Unit: each Repeat number: 12 Indication: Unspecified urinary incontinence Doculase By Mouth, Daily, 0 Refills, Maintenance, 04/28/23 9:43:00 AM EST, Partial fill upon patient request if the prescription is for a schedule II opioid drug. Start Date: 04/28/23 Status: Ordered Repeat number: 1 ergocalciferol 04178 iu oral capsule 50,000 International_Units, 1, capsule, By Mouth, Every week, Take 1 capsule of the 50,000 weekly for the next 8 weeks followed by [id number] 2000 international units of vitamin D daily, # 8 capsule, Refills 0, Tot. Refills 0, Maintenance, 07/31/23 4:09:00 PM EDT, Route to Pharmacy Electronically, [facility], Partial fill [...] 0 Refills, Maintenance, 09/02/22 2:25:00 PM EDT, [place], [facility], Partial fill [...] DX URINRY INCONTINENCE R39.81, SIM 99 VENU [phone], 02/13/22 2:45:00 PM EST, Supply Start Date: 02/13/22 Status: Ordered Quantity: 300.0 Unit: each Repeat number: 12 Liquid Calcium with Vitamin D 1000 mg-10 mcg/30 mL oral liquid See Instructions, TAKE 30MLS (2 TABLESPOONS) BY MOUTH ONCE DAILY, # 2,838 Unknown, 0 Refills, Maintenance, 09/21/23 12:03:00 PM EDT, [facility], 94, TAKE 30MLS (2 TABLESPOONS) [...] 8:38:00 AM EDT, Route to Pharmacy Electronically, [facility], Partialfill upon patient request if [...] 11 Refills, Maintenance, 11/30/23 7:46:00 AM EDT, [facility], 157.9, cm, 10/14/23 16:09:00 EDT, Height, 72, kg, 04/15/23 22:25:00 EST, Dry Weight Start Date: 11/30/23 Status: Ordered Quantity: 30.0 Unit: tablet Repeat number: 1 Myrbetriq 50 mg oral tablet, extended release See Instructions, TAKE 1 TABLET DAILY (NEED APPOINTMENT FOR FURTHER REFILLS), # 90 tablet, 3 Refills, Maintenance, 8/13/24 8:20:00 AM EDT, [facility], [...] EST, Route to Pharmacy Electronically, [facility], Partial fill [...] Dr Dalal/ [facility] Social History Social History Type Response Smoking Status Former smoker; Tobac co user in household: No; Other: start age 40 quit 2013; entered on: 01/07/18 Sex Sex Representation Female (finding) Patient Care team information Care Team Personnel Name: Alejo Cadet MD Position: [facility] Physician - Gastroenterology Member Role: Lifetime Consulting Physician Address: [address], [address] [facility] [place] [address]- [place] [employer]: Name: Rafita Edward MD Position: [facility] Renal MD Member Role: Lifetime Consulting Physician Address: [address] [place] [address] [address] [facility] [place] [address]- [place] [employer]: Name: Prashanth Rose RN Position: [facility] RN Member Role: Primary Care Nurse Name: Dorothea Wang RN Position: [facility] RN Member Role: Primary Care Nurse Name: Ledy Forbes RN Position: [facility] SN RN Member Role: Primary Care Nurse Name: Kavita Pagan RN Position: [facility] Onco RN Member Role: Primary Care Nurse Name: Prashanth Carmona RN Position: [facility] RN Member Role: Primary Care Nurse Name: Jaspreet Menchaca MD Position: [facility] Renal MD Member Role: Lifetime Consulting Physician Address: [address] [place] [address] [address] [facility] [place] [address]- [place] [employer]: Name: Maryam Ayers RN Position: [facility] ED RN W/OE and Tasks Member Role: Primary Care Nurse Name: Maxine Diallo RN Position: [facility] RN Member Role: Primary Care Nurse Name: Estephanie Carballo RN Position: [facility] RN Member Role: Primary Care Nurse Name: Odalys Chau RN Position: [facility] SN RN Member Role: Primary Care Nurse Name: Reji Willson RN Position: [facility] RN Member Role: Primary Care Nurse Name: Katie Holden RN Position: [facility] AMB Nurse Member Role: Primary Care Nurse Name: Evelyne Garcia RN Position: [facility] RN Member Role: Primary Care Nurse Name: Sol Nobles Position: [facility] AMB Nurse Member Role: Lifetime Consulting Physician Name: Johnna Baker RN Position: [facility] RN Member Role: Primary Care Nurse Name: Fantasma Ac RN Position: [facility] SN RN Member Role: Primary Care Nurse Name: Shanda Sharp RN Position: [facility] RN Member Role: Primary Care Nurse Name: Sabi Ruiz Position: [facility] commercial hvac service technician Member Role: Tavern Keeper Name: Vee Chand MD Position: [facility] Physician - Primary Care Member Role: PCP Address: [address] [place] [address]- [place] [employer]: Name: Ta Kolb RN Position: [facility] ED RN W/OE and Tasks Member Role: Primary Care Nurse Name: Neftaly Morley MD Position: [facility] Outreach Member Role: Lifetime Consulting Physician Address: [address] [facility], [place] [address]- [place] [employer]: Name: Eva Camarena RN Position: [facility] Office Staff Member Role: Primary Care Nurse Name: Johnna Can CNM Position: [facility] Personal Companion Member Role: Primary Care Nurse Address: [address] [place] [address]- [place] [employer]: Name: Brenda Brown RN Position: [facility] SN RN Member Role: Primary Care Nurse Name: David Mcwilliams MD Position: [facility] Renal MD Member Role: Lifetime Consulting Physician Address: [address] [facility] [place] [address]- [place] [employer]: Name: Michelle Castillo RN Position: [facility] RN Member Role: Primary Care Nurse Name: Sabi Grady RN Position: [facility] RN Member Role: Primary Care Nurse Name: Sheryl Gaytan Position: [facility] RN Member Role: Primary Care Nurse Care Team Related Persons Name: ANI PEREZ Name: STEFFANY FUENTES Insurance Providers Guarantor name: BEVERLY TORRES Health Plan Information #: 1 Payer: MEDICARE PART B OUTPT Member Number: [id number] Policy Number: NA Group Number: NA Health Plan Information #: 2 Payer: [employer] MCR A ONLY Member Number: [id number] Policy Number: NA Group Number: NA
--- OUTSIDE RECORDS SUMMARY | 2024-03-24 13:16 | XMS_ITS | Data Portability ---
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 Plan of Treatment Reminders Order Date Submit Date Provider Last Modified By Organization Details Last Modified Time Details Appointments None record ed. Lab None record ed. Referral None record ed. Procedures None record ed. Surgeries None record ed. Imaging None record ed. Medication Orders None record ed. Patient TargetsNo targets recorded. Patient InstructionsNo instructions recorded. Reason for Referral None Reported. Problems Name Problem SNOMED Code Status Onset Date Resolution Date Notes Provider Name and Address Organization Details Recorded Time Hyperlipid emia 90094796 Active 2019 LORNA SAUCEDO NP [address] [facility], [address], [place], [address] , [facility] 0 08:12:22 Acute urinary tract infection 511828559 Active 2019 LORNA SAUCEDO NP [address] [facility], [address], [place], [address] , [facility] 0 08:12:35 Gout 61317254 Active 2019 LORNA SAUCEDO NP [address] [facility], [address], [place], [address] , [facility] 0 08:21:44 Acute-on-c hronic renal failure 012438925 Active 2019 Inge Rodríguez MD [address] [facility], [address], [place], [address] , [facility] 0 00:35:34 Overactive urinary bladder 939860018 Active 2020 Inge Rodríguez MD [address] [facility], [address], [place], [address] , [facility] 1 00:36:36 Total knee replacemen t Active 2020 LORNA SAUCEDO NP [address], [address], [place], [address] , [facility] 1 09:22:16 Pain in left knee Active 2020 LORNA SAUCEDO NP [address] [facility], [address], [place], [address] , [facility] 1 09:22:52 Constipati on 54368504 Active 2020 Inge Rodríguez MD [address], [place], [address] , [facility] 1 16:36:30 Degenerati ve joint disease involving multiple joints 204988686 Active 2020 Inge Rodríguez MD [address] [facility], [address], [place], [address] , [facility] 1 23:37:24 Surgical incision wound of skin 789397443108 Active 2020 right knee LORNA SAUCEDO NP [address] [facility], [address], [place], [address] , [facility] 1 08:57:59 Pain in right knee Active 2020 LORNA SAUCEDO NP [address] [facility], [address], [place], [address] , [facility] 1 11:38:33 Chronic kidney disease stage 3A 207565535 Active 2020 Inge Rodríguez MD [address] [facility], [address], [place], [address] , [facility] 1 01:37:03 Cholecysti tis 69131799 Active 2019 Marcelina alonzo [facility] 0 13:27:09 Type 2 diabetes mellitus without complicati on 222635366 Active 2019 Marcelina alonzo [place] [facility] 0 13:27:09 Essential hypertensi on 28685336 Active 2019 Marcelina alonzo, [facility] 0 13:27:10 Coronary arterioscl erosis 45279539 Active 2019 Marcelina alonzo, [facility] 0 13:27:12 Chronic atrial fibrillati on 105114398 Active 2019 Marcelina alonzo, [facility] 0 13:27:18 Gastroesop hageal reflux disease without esophagiti s 800264364 Active 2019 Marcelina alonzo, [facility] 0 13:27:20 Disorder of urinary bladder 21843059 Active 2019 Marcelina alonzo, [facility] 0 13:30:10 History of deep vein thrombosis 584790297 Active 2019 Marcelina alonzo, [facility] 0 14:51:52 Congestive heart failure 23713651 Active 2019 Marcelina alonzo, [facility] 0 14:51:55 Renal mass 057420863 Active 2019 Marcelina alonzo, [facility] 0 14:52:00 Asthenia 99881004 Active 2019 Marcelina alonzo, [facility] 0 14:52:02 Problem Notes None recorded. Medical Equipment None Reported. Allergies Allergen ID Allergen Name Allergen Category Reaction Reaction Severity Criticality Documentation Date Start Date Code Code System Note Provider Name and Address Organization Details Recorded Time [id number] 2824e lisinopri l medicatio n Not available Not available Not available 04/04/2019 37764 RxNorm Not Available Not Available Not Available [id number] 2824e Dilaudid medicatio n Not available Not available Not available 01/07/2021 95138 3 RxNorm Not Available Not Available Not Available Vitals Date Recorded Body height Heart rate Respiratory rate Body temperature Oxygen saturation Oxygen saturation in Arterial blood by Pulse oximetry Systolic blood pressure Diastolic blood pressure Provider Name and Address Organization Details Last Updated DateTime 1 162.56 cm 58 /min 18 /min 96.8 [degF] 96 % 96 % 99 mm[Hg] 57 mm[Hg] LORNA SAUCEDO NP [address] [facility], [address], [place], [address], [facility] 1 11:30:38 Date Recorded Body height Heart rate Respiratory rate Body temperature Oxygen saturation Oxygen saturation in Arterial blood by Pulse oximetry Systolic blood pressure Diastolic blood pressure Provider Name and Address Organization Details Last Updated DateTime 1 162.56 cm 71 /min 20 /min 97.6 [degF] 96 % 96 % 113 mm[Hg] 61 mm[Hg] LORNA SAUCEDO NP [address] [facility] [address], [place], [address], [facility] 08:38:54 Date Recorded Body height Body mass index (BMI) Body weight Heart rate Respiratory rate Body temperature Oxygen saturation Oxygen saturation in Arterial blood by Pulse oximetry Systolic blood pressure Diastolic blood pressure Provider Name and Address Organization Details Last Updated DateTime 1 162.56 cm 26.2 kg/m2 60742.4 8 g 70 /min 16 /min 97 [degF] 96 % 96 % 112 mm[Hg] 61 mm[Hg] Inge Rodríguez MD [address] [facility] [address], [place], [address], [facility] 1 16:25:57 Date Recorded Body height Heart rate Respiratory rate Body temperature Oxygen saturation Oxygen saturation in Arterial blood by Pulse oximetry Systolic blood pressure Diastolic blood pressure Provider Name and Address Organization Details Last Updated DateTime 1 162.56 cm 70 /min 16 /min 97 [degF] 96 % 96 % 112 mm[Hg] 61 mm[Hg] LORNA SAUCEDO NP [address] [facility] [address], [place], [address], [facility] 1 12:16:58 Date Recorded Body height Heart rate Respiratory rate Body temperature Oxygen saturation Oxygen saturation in Arterial blood by Pulse oximetry Systolic blood pressure Diastolic blood pressure Provider Name and Address Organization Details Last Updated DateTime 1 162.56 cm 91 /min 18 /min 97 [degF] 97 % 97 % 108 mm[Hg] 61 mm[Hg] LORNA SHERYL, SUPPLY OFFICER [address], [address], [place], [address], [place] [facility] 1 11:04:33 Social History Question Answer Notes LastModified by Organizat ion Details LastModified Time Tobacco Smoking Status Former Smoker quit 2013 Not Available [facility] 01/16/2020 03:13:20 Do You Have An Advance Directive? Yes CPR-hospital Ok, No Dialysis , Ok For Iv. Hydration, Art Nut. Information not available 01/07/2021 What Is Your Level Of Alcohol Consumption? Occasional [id number] Information not available 01/16/2020 How Much Tobacco Do You Chew? None [id number] Information not available 01/16/2020 What Is Your Code Status? DNI Information not available 01/07/2021 Do You Or Have You Ever Used E-cigarettes Or Vape? Never Used Electronic Cigarettes [id number] Information not available 01/16/2020 Legal Guardian? No Information not available 12/16/2020 Do You Have A Medical Power Of Special Education Professional? Yes Has One, Need To Obtain Information not available 12/16/2020 What Was The Date Of Your Most Recent Tobacco Screening? 12/12/2019 [id number] Information not available 01/16/2020 Do You Or Have You Ever Used Smokeless Tobacco? Never Used Smokeless Tobacco [id number] Information not available 01/16/2020 Has Tobacco Cessation Counseling Been Provided? No N/a As Pt. No Longer Smokes Information not available 12/16/2020 How Many Years Have You Smoked Tobacco? 50 [id number] Information not available 01/16/2020 Do You Or Have You Ever Used Any Other Forms Of Tobacco Or Nicotine? No Information not available 12/16/2020 Sex: Female Functional Status None recorded. Mental Status None recorded. Family History Nothing Reported Notes:father-lung ca Medical History No medical history recorded. Gynecological HistoryNo gynecological history recorded. Obstetrics History GPAL:G 0 P 0 0 0 0 Immunizations Vaccine Type Date Status Note Provider Nam e and Address Organization Details Recorded Time COVID-19, mRNA, LNP-S, PF, 30 mcg/0.3 mL dose 1 completed Julieth Rob null, [facility] 02/19/2021 13:36:20 Influenza, high-dose, quadrivalent, PF 1 completed Julieth Rob null, [facility] 03/19/2021 09:32:37 Influenza, split virus, quadrivalent, preservative 0 completed [facility], [facility] 01/12/2020 10:17:01 Pneumococcal conjugate PCV 13 5 completed [facility] 08/12/2020 09:42:53 pneumococcal polysaccharide PPV23 4 completed [facility], [facility] 08/12/2020 09:43:04 Tdap 4 completed [facility] 08/12/2020 09:43:14 Past Encounters Encounter ID Performer Location Encounter Start Date Encounter Closed Date Diagnosis/Indication Diagnosis SNOMED-CT Code Diagnosis ICD10 Code [id number] [address] 04/04/2019 13:17:17 04/04/2019 14:15:53 Cholecystitis 17244608 K80.10 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 467111352 E11.9 Essential hypertension 67641185 I10 Coronary arteriosclerosis 30886040 I25.10 Chronic at rial fibrillation 313122685 I48.21 Gastroesop hageal reflux disease without esophagitis 087639960 K21.9 Disorder o f urinary bladder 55196253 N32.81 Renal mass 291753457 N28 .89 History of deep vein thrombosis 130347170 Z86.718 Asthenia 00826816 R53.1 Congestive heart failure 81357754 I50.[id number] [address] 04/06/2019 14:48:45 04/12/2019 14:33:13 History of deep vein thrombosis 371848503 Z86.718 Essential hypertension 36736236 I10 Chronic at rial fibrillation 680156370 I48.21 Osteoarthr itis of left knee joint 0023213269 62325 M17.12 [id number] Marcelina Ponce [address] [place] [address] [place] [address] 04/07/2019 13:58:39 04/12/2019 14:36:15 Osteoarthritis of left knee joint 3623288239 53100 M17.12 History of deep vein thrombosis 927950003 Z86.718 Chronic at rial fibrillation 029078089 I48.21 Essential hypertension 42776023 I10 Cholecystitis 85951682 K 80.10 Congestive heart failure 82959219 I50.22 Coronary arteriosclerosis 37390866 I25.10 Gastroesop hageal reflux disease without esophagitis 293322726 K21.9 [id number] Mohsen Collins MD [address] [place] [address] [place] [address] 04/10/2019 11:20:58 04/12/2019 14:47:48 Acute cholecystitis 66639494 K81.0 Asthenia 56595926 R53.1 Chronic at rial fibrillation 837050544 I48.21 Congestive heart failure 09540175 I50.22 Gastroesop hageal reflux disease without esophagitis 925581644 K21.9 Essential hypertension 24077689 I10 [id number] Marcelinaradha Ponce [address] [place] [address] [place] [address] 04/11/2019 13:13:45 04/18/2019 08:34:20 Acute cholecystitis 61091015 K81.0 Asthenia 27674863 R53.1 Chronic at rial fibrillation 139596828 I48.21 Osteoarthr itis of left knee joint 3203488975 58406 M17.12 History of deep vein thrombosis 013930975 Z86.718 Essential hypertension 26221959 I10 Pain in left arm 8190995 00 M79.602 Congestive heart failure 38672315 I50.22 [id number] JORDON MENENDEZ [address] [place] [address] 12/08/2019 08:07:07 12/11/2019 16:45:18 Chronic atrial fibrillation 420349145 I48.20 Congestive heart failure 95593260 I50.9 Essential hypertension 70352682 I10 Hyperlipidemia 61009868 E78.5 Acute urin polina tract infection 767345817 N39.0 Gout 60866905 M10.9 [id number] Inge Rodríguez MD [address] [address] 12/12/2019 18:51:23 12/18/2019 10:30:51 Chronic atrial fibrillation 366582203 I48.21 Congestive heart failure 56487382 I50.22 I25.5 Z95.810 Essential hypertension 56271791 I10 Hyperlipidemia 40539473 E78.49 Acute urin polina tract infection 062306581 N30.00 Gout 72834582 M10.072 Acute-on-c hronic renal failure 545827837 N17.8 N18.2 [id number] LORNA SAUCEDO NP [address] [address] 12/13/2019 09:32:51 12/15/2019 09:06:00 Congestive heart failure 93831749 I50.9 Gout 68416056 M10.9 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 228470428 E11.9 [id number] LORNA SAUCEDO NP [address] [address] 12/18/2019 09:46:04 12/21/2019 15:26:11 Congestive heart failure 01895818 I50.9 Essential hypertension 74232700 I10 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 523119654 E11.9 [id number] LORNA SAUCEDO NP [address] [address] 12/25/2019 10:13:38 12/27/2019 10:05:24 Gout 02057690 M10.9 Asthenia 29584612 R53.1 [id number] LORNA SAUCEDO NP [address] [address] 01/01/2020 12:24:46 01/04/2020 12:53:43 Gout 63106235 M10.9 Asthenia 74045577 R53.1 [id number] LORNA SAUCEDO NP [address] [address] 01/05/2020 08:36:09 01/08/2020 13:24:34 Ytgsj-oq-ikvbbph renal failure 721697352 N18.9 Asthenia 29620364 R53.1 Chronic at rial fibrillation 264037027 I48.20 Congestive heart failure 75459660 I50.9 Coronary arteriosclerosis 32277159 I25.10 Essential hypertension 92813742 I10 Gastroesop hageal reflux disease without esophagitis 005896595 K21.9 Gout 94428257 M10.9 Hyperlipidemia 33193425 E78.5 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 819314918 E11.9 [id number] LORNA SAUCEDO NP [address] [address] 04/19/2020 07:49:30 04/23/2020 08:17:38 Chronic atrial fibrillation 561027017 I48.20 Congestive heart failure 11567309 I50.9 Coronary arteriosclerosis 88916673 I25.10 Disorder o f urinary bladder 80900599 N32.9 Essential hypertension 12964767 I10 Gastroesop hageal reflux disease without esophagitis 120669047 K21.9 Gout 20998964 M10.9 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 757637640 E11.9 Hyperlipidemia 96142182 E78.5 [id number] Inge Rodríguez MD [address] [address] 04/22/2020 13:43:45 04/25/2020 11:37:29 Congestive heart failure 33215781 I50.22 I25.5 Z95.810 Acute-on-c hronic renal failure 281483666 N17.8 N18.2 Chronic at rial fibrillation 144914646 I48.21 Essential hypertension 68483757 I10 Hyperlipidemia 43860487 E78.49 Gout 90134596 M10.072 Coronary arteriosclerosis 98192403 I25.10 Gastroesop hageal reflux disease without esophagitis 886286068 K21.9 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 197052201 E11.9 Bilateral knee pain 1187 125699 3458257 M25.561 M25.562 M15.0 Overactive urinary bladder 723198754 N32.81 [id number] LORNA SAUCEDO NP [address] [address] 04/29/2020 07:38:33 05/01/2020 11:27:39 Acute urinary tract infection 168530310 N39.0 Acute-on-c hronic renal failure 031216354 N18.9 Asthenia 89412408 R53.1 Cholecystitis 35907181 K 81.9 Chronic at rial fibrillation 021882235 I48.20 Congestive heart failure 68422846 I50.9 Coronary arteriosclerosis 45380602 I25.10 Disorder o f urinary bladder 55759132 N32.9 Essential hypertension 18002438 I10 Gastroesop hageal reflux disease without esophagitis 693186435 K21.9 Gout 88651265 M10.9 History of deep vein thrombosis 552799766 Z86.718 Hyperlipidemia 33527849 E78.5 Overactive urinary bladder 025231726 N32.81 Renal mass 167996427 N28 .89 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 148921497 E11.9 [id number] LORNA SAUCEDO NP [address] [address] 05/31/2020 07:34:55 06/05/2020 10:23:00 Type 2 diabetes mellitus without complication 921944055 E11.9 Renal mass 139304745 N28 .89 Overactive urinary bladder 673981193 N32.81 Hyperlipidemia 07210223 E78.5 History of deep vein thrombosis 823915994 Z86.718 Gout 70863273 M10.9 Gastroesop hageal reflux disease without esophagitis 561582044 K21.9 Essential hypertension 32737940 I10 Coronary arteriosclerosis 80753978 I25.10 Congestive heart failure 73439846 I50.9 Chronic at rial fibrillation 594606199 I48.20 Pain in left knee 116211 0473 78086 M25.562 [id number] Inge Rodríguez MD [address] [address] 06/03/2020 13:11:50 06/11/2020 14:52:39 Degenerative joint disease involving multiple joints 395372924 M15.0 Z96.652 Bilateral knee pain 1187 183152 3696100 M25.561 M25.562 M15.0 Congestive heart failure 19399587 I50.22 I25.5 Z95.810 Acute-on-c hronic renal failure 531186006 N17.8 N18.2 Chronic at rial fibrillation 818450459 I48.21 Essential hypertension 24939331 I10 Hyperlipidemia 60892268 E78.49 Gout 13029901 M10.072 Coronary arteriosclerosis 67954060 I25.10 Gastroesop hageal reflux disease without esophagitis 635338719 K21.9 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 940907339 E11.9 Overactive urinary bladder 097589122 N32.81 Constipation 90114013 K5 9.03 [id number] LORNA SAUCEDO NP RORY TARANGO [address] [place] [address] 06/04/2020 08:11:50 06/07/2020 13:33:34 Pain in left knee 3022472986 26763 M25.562 Congestive heart failure 92968387 I50.9 [id number] LORNA SAUCEDO NP [address] [address] 06/07/2020 11:43:39 06/11/2020 15:04:18 Pain in left knee 0908065900 03157 M25.562 Gastroesop hageal reflux disease without esophagitis 029715059 K21.9 History of deep vein thrombosis 533344629 Z86.718 [id number] LORNA SAUCEDO NP [facility] [address] [place] [address] 06/10/2020 15:29:11 06/13/2020 15:30:41 Pain in left knee 0585646231 27828 M25.562 Degenerati ve joint disease involving multiple joints 568343135 M15.9 [id number] LORNA SAUCEDO NP [address] [address] 06/14/2020 12:44:17 06/17/2020 16:30:53 Degenerative joint disease involving multiple joints 142834222 M15.9 Pain in left knee 682369 8449 23122 M25.562 [id number] LORNA SAUCEDO NP [address] [address] 06/25/2020 08:29:30 06/27/2020 09:37:45 Oxbck-lh-agkuyet renal failure 372824520 N18.9 Asthenia 02898292 R53.1 Cholecystitis 51282428 K 81.9 Chronic at rial fibrillation 364465356 I48.20 Congestive heart failure 29679284 I50.9 Constipation 94172701 K5 9.00 Coronary arteriosclerosis 01311291 I25.10 Degenerati ve joint disease involving multiple joints 303151406 M15.9 Disorder o f urinary bladder 99980141 N32.9 Essential hypertension 16570350 I10 Gastroesop hageal reflux disease without esophagitis 127424869 K21.9 Gout 59206331 M10.9 Hyperlipidemia 12366727 E78.5 Pain in left knee 585493 6700 15797 M25.562 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 515960985 E11.9 [id number] LORNA SAUCEDO NP [address] [address] 07/02/2020 07:59:13 07/04/2020 13:33:53 Acute urinary tract infection 471343253 N39.0 Acute-on-c hronic renal failure 546791974 N18.9 Asthenia 36471829 R53.1 Cholecystitis 93056984 K 81.9 Chronic at rial fibrillation 291164375 I48.20 Congestive heart failure 77532525 I50.9 Constipation 64334174 K5 9.00 Coronary arteriosclerosis 50791622 I25.10 Degenerati ve joint disease involving multiple joints 440088519 M15.9 Disorder o f urinary bladder 96369258 N32.9 Essential hypertension 65169255 I10 Gastroesop hageal reflux disease without esophagitis 062673140 K21.9 Gout 73085342 M10.9 History of deep vein thrombosis 651925538 Z86.718 Hyperlipidemia 14622240 E78.5 Overactive urinary bladder 439396078 N32.81 Pain in left knee 884815 7262 48107 M25.562 Renal mass 760136896 N28 .89 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 533972406 E11.9 [id number] LORNA SAUCEDO NP [address] [address] 12/03/2020 08:55:59 12/10/2020 09:17:00 Degenerative joint disease involving multiple joints 911312908 M15.9 Surgical i ncision wound of skin 0500505343 00 R23.8 Acute-on-c hronic renal failure 923623623 N18.9 Asthenia 13332294 R53.1 Cholecystitis 11296387 K 81.9 Chronic at rial fibrillation 531271320 I48.20 Congestive heart failure 85296079 I50.9 Constipation 87348386 K5 9.00 Coronary arteriosclerosis 84304871 I25.10 Disorder o f urinary bladder 74577929 N32.9 Essential hypertension 77652397 I10 Gastroesop hageal reflux disease without esophagitis 860715786 K21.9 Gout 63937063 M10.9 Hyperlipidemia 56337762 E78.5 Overactive urinary bladder 498544599 N32.81 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 469618839 E11.9 [id number] LORNA SAUCEDO NP [address] [address] 12/04/2020 11:19:28 12/06/2020 13:53:27 Asthenia 68713257 R53.1 Surgical i ncision wound of skin 0356047333 00 R23.8 Pain in right knee 03177 44386 61330 M25.561 [id number] LORNA SAUCEDO NP [address] [address] 12/11/2020 08:21:46 12/13/2020 15:18:13 Pain in right knee 6056100570 13341 M25.561 Surgical i ncision wound of skin 9228100078 00 R23.8 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 740777651 E11.9 Overactive urinary bladder 212910041 N32.81 Hyperlipidemia 10128735 E78.5 History of deep vein thrombosis 982203974 Z86.718 Gout 34123737 M10.9 Gastroesop hageal reflux disease without esophagitis 773147884 K21.9 Essential hypertension 30882114 I10 Degenerati ve joint disease involving multiple joints 053770642 M15.9 Coronary arteriosclerosis 90762209 I25.10 Constipation 59963275 K5 9.00 Congestive heart failure 73121491 I50.9 Chronic at rial fibrillation 078205967 I48.20 Asthenia 59555205 R53.1 Acute-on-c hronic renal failure 545808220 N18.9 [id number] Inge Rodríguez MD [address] [address] 12/12/2020 16:13:14 12/17/2020 11:12:37 Pain in right knee 0579808129 52499 M25.561 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 367685873 E11.9 Overactive urinary bladder 997648197 N32.81 Hyperlipidemia 60756458 E78.49 History of deep vein thrombosis 568718501 Z86.718 Gout 90236275 M10.09 Gastroesop hageal reflux disease without esophagitis 553841038 K21.9 Essential hypertension 55583293 I10 Degenerati ve joint disease involving multiple joints 929508266 M15.0 Coronary arteriosclerosis 66643299 I25.10 Constipation 80457666 K5 9.09 Congestive heart failure 59025973 I50.22 Chronic at rial fibrillation 972476324 I48.0 Chronic ki dney disease stage 3A 062297747 N18.31 [id number] LORNA SAUCEDO NP [address] [address] 12/13/2020 12:39:28 12/17/2020 12:46:43 Pain in right knee 1768932433 81414 M25.561 Surgical i ncision wound of skin 9629957730 00 R23.8 [id number] LORNA SAUCEDO NP [address] [address] 12/16/2020 10:18:46 12/17/2020 13:39:35 Asthenia 18210756 R53.1 Pain in right knee 59598 73483 69217 M25.561 [id number] LORNA SAUCEDO NP [address] [address] 12/20/2020 12:36:08 12/24/2020 11:10:32 Gout 98698711 M10.09 Pain in right knee 46482 02708 36965 M25.561 Surgical i ncision wound of skin 8872113910 00 R23.8 [id number] LORNA SAUCEDO NP [address] [address] 12/23/2020 08:51:19 12/25/2020 15:10:59 Degenerative joint disease involving multiple joints 874537945 M15.0 Surgical i ncision wound of skin 7136262796 00 R23.8 Pain in right knee 37338 74358 66496 M25.561 Gout 95055818 M10.09 [id number] LORNA SAUCEDO NP [address] [address] 12/27/2020 11:12:53 12/30/2020 15:10:57 Surgical incision wound of skin 5500788521 00 R23.8 Pain in right knee 79809 25651 45731 M25.561 [id number] LORNA SAUCEDO NP [address] [address] 12/30/2020 10:50:14 01/01/2021 14:58:34 Surgical incision wound of skin 1310150804 00 R23.8 Pain in right knee 99194 60842 34264 M25.561 Asthenia 79544691 R53.1 [id number] LORNA SAUCEDO NP [address] [address] 12/31/2020 10:59:03 01/01/2021 15:38:08 Ngjro-my-tmytssj renal failure 491753536 N18.9 [id number] LORNA SAUCEDO NP [address] [address] 01/07/2021 08:34:28 01/09/2021 14:53:44 Jeqei-qp-taeurab renal failure 860531943 N18.9 Asthenia 88790031 R53.1 Chronic at rial fibrillation 307676433 I48.0 Chronic ki dney disease stage 3A 876816754 N18.31 Congestive heart failure 15447955 I50.22 Constipation 92274170 K5 9.09 Degenerati ve joint disease involving multiple joints 770064527 M15.0 Coronary arteriosclerosis 78753094 I25.10 Disorder o f urinary bladder 17904523 N32.9 Essential hypertension 67208999 I10 Gastroesop hageal reflux disease without esophagitis 136978371 K21.9 Gout 56985663 M10.09 History of deep vein thrombosis 443420773 Z86.718 Hyperlipidemia 58336603 E78.49 Overactive urinary bladder 131161283 N32.81 Pain in right knee 58736 85493 69179 M25.561 Renal mass 272512712 N28 .89 Surgical i ncision wound of skin 8599434954 00 R23.8 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 [id number] E11.9 [id number] MD RORY Becerril [address] [place] [address] [phone] 5 01/09/2021 15:45:40 01/14/2021 12:02:05 Whgxr-eo-unrvhag renal failure 390751520 N18.9 Asthenia 98167479 R53.1 Chronic at rial fibrillation 690934790 I48.0 Chronic ki dney disease stage 3A 020067809 N18.31 Congestive heart failure 35346100 I50.22 Constipation 43304568 K5 9.09 Degenerati ve joint disease involving multiple joints 160497967 M15.0 Coronary arteriosclerosis 15287511 I25.10 Renal mass 363283594 N28 .89 Surgical i ncision wound of skin 1608846950 00 R23.8 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 231388068 E11.9 Pain in right knee 46178 91263 14841 M25.561 Overactive urinary bladder 270243992 N32.81 Hyperlipidemia 56454523 E78.49 History of deep vein thrombosis 057643501 Z86.718 Gout 98186821 M10.09 Gastroesop hageal reflux disease without esophagitis 416180706 K21.9 Essential hypertension 12364014 I10 [id number] JORDON MENENDEZ [address] [place] [address] [phone] 5 01/10/2021 12:10:44 01/14/2021 12:05:06 Pain in right knee 8498166966 18577 M25.561 Surgical i ncision wound of skin 5393790048 00 R23.8 Asthenia 97625394 R53.1 [id number] JORDON MENENDEZ [address] [place] [address] rd SUDEEP MITCHELL [phone] 5 01/15/2021 08:23:33 01/17/2021 15:03:46 Surgical incision wound of skin 5850242830 00 R23.8 Pain in right knee 75669 69985 27414 M25.561 Acute-on-c hronic renal failure 045947048 N18.9 Asthenia 79556924 R53.1 Chronic at rial fibrillation 546181278 I48.0 Chronic ki dney disease stage 3A 833065502 N18.31 Congestive heart failure 11892825 I50.22 Constipation 90281492 K5 9.09 Coronary arteriosclerosis 13436471 I25.10 Degenerati ve joint disease involving multiple joints 901702871 M15.0 Disorder o f urinary bladder 47495002 N32.9 Essential hypertension 43016315 I10 Gastroesop hageal reflux disease without esophagitis 081108042 K21.9 Gout 52785147 M10.09 History of deep vein thrombosis 191415079 Z86.718 Hyperlipidemia 38586197 E78.49 Overactive urinary bladder 474989799 N32.81 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 hydration, art nut. Payers Encounter Date Sequence Insurance Name Policy Number Policy Conklin Covered Member ID Conklin Member ID Guarantor Name 12/31/2020 2 WPS - FOR LIFE (MEDICARE SUPPLEMENT) Margo Fang [id number] Margo Fang 12/31/2020 1 MEDICARE [place]: [employer] Margo Fang [id number] Margo Fang 01/07/2021 2 WPS - FOR LIFE (MEDICARE SUPPLEMENT) Margo Fang [id number] Margo Fang 01/07/2021 1 [place]: [employer] Margo Fang [id number] Margo Fang 01/09/2021 2 WPS - FOR LIFE (MEDICARE SUPPLEMENT) Margo Fang [id number] Margo Fang 01/09/2021 1 [place]: [facility] Margo Fang [id number] Margo Fang 01/10/2021 2 WPS - FOR LIFE (MEDICARE SUPPLEMENT) Margo Fang [id number] Margo Leoncio 01/10/2021 1 [place]IC[place]: [facility] Margo Fang [id number] Margo Fang 01/15/2021 2 WPS - FOR LIFE (MEDICARE SUPPLEMENT) Margo Fang [id number] Margo Fang 01/15/2021 1 [place]IC[place]: [facility] Margo Fang [id number] Margo Fang Notes Date Note Type Note Provider Name and Address Organization Details Recorded Time 12/31/2020 text/html seen today for a cute rounding visit, CAOx3 ambulating in the [facility] with PT and walker, contact guard, ambulating well, she denies any distress or discomfort, labs show JOSE CARLOS of unknown cause-possible moderate po intake, will send her to hospital for further eval LORNA SAUCEDO NP [address] [facility], [address], [place], [address], [facility] 12/31/2020 11:35:16 01/07/2021 text/html seen today for initial intake- 80 yof here for rehab of RTK, was sent to the hospital 12/31 for JOSE CARLOS, allegedly she had not voided for a week, staff reported she had been voiding in small amounts. baseline creat 1.4-1.6 but on that date it was 5, asymptomatic. CT abd showed markedly distrended gallbladder/CBD, and known right renal mass increased in size. Treated gently with IVF and creat improved to 2.1. CAOx3 sitting up in bed, she has been incontinent of urine, lungs clear, right knee slightly swollen, rom unchanged from previous visit, participates with PT, good cms, no nausea, ate well at breakfast, WIND PLANT MANAGER's aware of monitoring how many voids and charting this LORNA SAUCEDO NP [address] [facility], [address], [place], [address], [facility] 01/08/2021 10:18:32 01/09/2021 text/html This is an 80 yo woman who was here for rehab after a right TKR. She was sent out on 12/31 due to acutely elevated BUN/Cr of 110/5.15. In ED these were 103/4.8, K+4.2. Abd CT showed no signs of obstruction. Inferior right renal mass was sl. larger than in past. A wyman was placed and 400 ml of urine obtained. Pt. said she had not voided in a week. But staff at said she had been voiding small amts. Her U/A was neg. It was presumed that she had had urinary retention due to mirabegron, which had now resolved. Wyman was removed on 01/03 without issue. No IV fluid was given due to hx of CHF. Renal function improved to almost baseline quickly. Of note abd. CT showed Markedly distended gallbladder and dilatation of common bile duct. Possible distal obstruction, though a definite stone is not identified. and RUQ U/S showed Cholelithiasis and mildly distended gallbladder. No other sonographic findings supportive of acute cholecystitis. . Her LFTs were WNL and she had no sxs. The advice was to f/u as outpt. She was also to f/u to discuss renal mass. She was d/c back here on 01/06.Tonight she tells me she is glad things are getting better. Voiding without a problem. Is getting some cramps when she needs to have a BM, but BMs are nl. and she feels great as soon as she goes.Her PMH includes CHF, ischemic cardiomyopathy (status post ICD, EF 30-35%), CAD (bare-metal stent to proximal LAD in 2013), HTN, parox. AFib, MARCI-untxed, s/p left TKR-05/2020, HLD, gout, right renal mass, AODM-diet controlled, hx of DVT, OP, right renal mass, DDD, obesity, and anemia. Inge Rodríguez MD [address] [place] [address], [address], [place], [address], [facility] 01/13/2021 20:29:24 01/10/2021 text/html seen today for a cute rounding visit, CAOx3 ambulating in the PT gym, gait more steady, right knee swelling almost gone, incision healed with a couple of small scabs, good cms to leg, she assures me she is voiding well and drinking well, staff report she has been voiding LORNA SAUCEDO NP [address] [facility], [address], [place], [address], [employer] [facility] 01/10/2021 12:19:50 01/15/2021 text/html seen today for discharge summary-- 80 yof here for rehab of RTK, was sent to the hospital 12/31 for JOSE CARLOS, allegedly she had not voided for a week, staff reported she had been voiding in small amounts. baseline creat 1.4-1.6 but on that date it was 5, asymptomatic. CT abd showed markedly distrended gallbladder/CBD, and known right renal mass increased in size. Treated gently with IVF and creat improved to 2.1.she was originally sent here for rehab after elective RTK surgery, she had severe pain issues and sent to the hospital but returned with decreased pain. CAOx3 sitting up in bed, she has been incontinent of urine, lungs clear, right knee healed well, rom improved, participates with PT, good cms, no nausea, ate well at breakfast, [employer] MANAGER's aware of monitoring how many voids and charting this, she is a supervision with ambulation and walker, kidney function is slowly improving LORNA SAUCEDO NP [address] [facility], [address], [place], [address], [facility] 01/15/2021 11:11:26 OBGyn Episode No OBEpisode recorded.
--- OUTSIDE RECORDS SUMMARY | 2024-03-24 13:16 | XMS_ITS | Continuity of Care Document ---
Author Organization [facility] Adult Address [address] [place] [address]- Support Name Relationship Address Phone ANI PEREZ [...] CHASE Personal Relationship Unknown Unav ailable TORRES, CHAES Personal Relationship Unknown Unav ailable TORRES, CHASE [...] Unknown U navailable Care Team Providers Care Nail Feeder Name Role Phone Mannie MUÑOZ, Vee Primary Care Physician Encounter [facility] Date(s): 01/31/24 - 03/01/24 [facility] Adult [address] [place] [address]- Encounter Type: Triage Allergies, Adverse Reactions, Alerts [...] Vaccine (oldterm) 6 10/29/05 Given 1Result Comment: [facility] [id number] 2Result Comment: [facility] [id number] 3Admin Note: VIS GIVEN 4Admin Note: [facility] VIS reviewed 5Admin Note: vis given 6Admin Note: vis given Medications Albuterol (Eqv-Ventolin HFA) 90 mcg/inh inhalation aerosol 2 puffs, Inhalation, Every 6 hours, # 8.5 Gm, 0 Refills, Maintenance, 03/11/23 9:03:00 AM EST, [facility], Partial fill upon patient request [...] 9:22:00 PM EDT, Route to Pharmacy Electronically, [facility], 160, cm, 08/13/23 11:09:00 EDT, Height, 72, kg, 04/15/23 22:25:00 EST, Dry Weight Start Date: 09/27/23 Status: Ordered Quantity: 45.0 Unit: tablet Repeat number: 2 atorvastatin 80 mg oral tablet 1 tablet, By Mouth, Daily at bedtime, # 90 tablet, 1 Refills, Maintenance, 10/19/23 11:08:00 AM EDT,[facility], 157.9, cm, 10/14/23 [...] DX URINRY INCONTINENCE R39.81, SIM 99 VENU [phone], 02/13/22 2:43:00 PM EST, Supply Start Date: 02/13/22 Status: Ordered Quantity: 180.0 Unit: each Repeat number: 12 Indication: Unspecified urinary incontinence Doculase By Mouth, Daily, 0 Refills, Maintenance, 04/28/23 9:43:00 AM EST, Partial fill upon patient request if the prescription is for a schedule II opioid drug. Start Date: 04/28/23 Status: Ordered Repeat number: 1 ergocalciferol 69333 iu oral capsule 50,000 International_Units, 1, capsule, By Mouth, Every week, Take 1 capsule of the 50,000 weekly for the next 8 weeks followed by [id number]-[id number] 2000 international units of vitamin D daily, # 8 capsule, Refills 0, Tot. Refills 0, Maintenance, 07/31/23 4:09:00 PM EDT, Route to Pharmacy Electronically, [facility], Partial fill upon patient request [...] 0 Refills, Maintenance, 09/02/22 2:25:00 PM EDT, [place], [facility], Partial fill upon patient request [...] INCONTINENCE R39.81, SIM 99 RICK AND MARIE [phone], 02/13/22 2:45:00 PM EST, Supply Start Date: 02/13/22 Status: Ordered Quantity: 300.0 Unit: each Repeat number: 12 Liquid Calcium with Vitamin D 1000 mg-10 mcg/30 mL oral liquid See Instructions, TAKE 30MLS (2 TABLESPOONS) BY MOUTH ONCE DAILY, # 2,838 Unknown, 0 Refills, Maintenance, 09/21/23 12:03:00 PM EDT, [facility], 94, TAKE 30MLS (2 TABLESPOONS) [...] 8:38:00 AM EDT, Route to Pharmacy Electronically, [facility], Partialfill upon patient request if [...] 11 Refills, Maintenance, 11/30/23 7:46:00 AM EDT, [facility], 157.9, cm, 10/14/23 [...] EST, Route to Pharmacy Electronically, [facility], Partial fill upon patient request [...] Dr Dalal/ [facility] Social History Social History Type Response Smoking Status Former smoker; Tobac co user in household: No; Other: start age 40 quit 2013; entered on: 01/07/18 Sex Sex Representation Female (finding) Patient Care team information Care Team Personnel Name: Alejo Cadet MD Position: [facility] Physician - Gastroenterology Member Role: Lifetime Consulting Physician Address: [address] [place] [address], [address] [facility] [address] Telecom: Name: Rafita Edward MD Position: [facility] Renal MD Member Role: Lifetime Consulting Physician Address: [address] [place] [address] [address] [facility] [place] [address]- Telecom: Name: Prashanth Rose RN Position: [facility] RN Member Role: Primary Care Nurse Name: Dorothea Wang RN Position: [facility] RN Member Role: Primary Care Nurse Name: Ledy Forbes RN Position: [facility] SN RN Member Role: Primary Care Nurse Name: Kavita Pagan RN Position: [facility] Onco RN Member Role: Primary Care Nurse Name: Prashanth Carmona RN Position: [facility] RN Member Role: Primary Care Nurse Name: Jaspreet Menchaca MD Position: [facility] Renal MD Member Role: Lifetime Consulting Physician Address: [address] [place] [address] [address] [facility] [place], [place] [address] Telecom: Name: Maryam Ayers RN Position: [facility] ED RN W/OE and Tasks Member Role: Primary Care Nurse Name: Maxine Diallo RN Position: [facility] RN Member Role: Primary Care Nurse Name: Estephanie Carballo RN Position: [facility] RN Member Role: Primary Care Nurse Name: Odalys Chau RN Position: [facility] SN RN Member Role: Primary Care Nurse Name: Johnna Wyman CNM Position: [facility] Senior Game Advisor Member Role: Primary Care Nurse Address: [address] [place] [id number] Telecom: Name: Reji Willson RN Position: [facility] RN Member Role: Primary Care Nurse Name: Katie Holden RN Position: [facility] AMB Nurse Member Role: Primary Care Nurse Name: Evelyne Garcia RN Position: [facility] RN Member Role: Primary Care Nurse Name: Sol Nobles Position: [facility] AMB Nurse Member Role: Lifetime Consulting Physician Name: Johnna Baker RN Position: [facility] RN Member Role: Primary Care Nurse Name: Fantasma Ac RN Position: [facility] SN RN Member Role: Primary Care Nurse Name: Shanda Sharp RN Position: [facility] RN Member Role: Primary Care Nurse Name: Sabi Ruiz Position: [facility] supervisor throwing department Member Role: Hide Buyer Name: Mannie MUÑOZ, Vee Position: [facility] Physician - Primary Care Member Role: PCP Address: [address] [facility] [address] [place] [address] [place] Telecom: Name: Ta Kolb RN Position: [facility] ED RN W/OE and Tasks Member Role: Primary Care Nurse Name: Neftaly Morley MD Position: [facility] Outreach Member Role: Lifetime Consulting Physician Address: [address] [facility] [place] [address]- Telecom: Name: Eva Camarena RN Position: [facility] Office Staff Member Role: Primary Care Nurse Name: Brenda Brown RN Position: [facility] SN RN Member Role: Primary Care Nurse Name: David Mcwilliams MD Position: [facility] Renal MD Member Role: Lifetime Consulting Physician Address: [address] [facility] [address] [facility] [place] [address]- [place] Telecom: Name: Michelle Castillo RN Position: [facility] RN Member Role: Primary Care Nurse Name: Sabi Grady RN Position: [facility] RN Member Role: Primary Care Nurse Name: Sheryl Gaytan Position: [facility] RN Member Role: Primary Care Nurse Care [...]
--- OUTSIDE RECORDS SUMMARY | 2024-03-24 13:16 | XMS_ITS | Continuity of Care Document ---
Author Organization [facility] Adult Address [address] [place] [address]- Support Name Relationship Address Phone ANI PEREZ child Unknown Unavailable TORRES, CHASE Personal Relationship Unknown Unav ailable TORRES, CHASE Personal Relationship Unknown Unav ailable TORRSE, CHASE Personal Relationship Unknown Unav ailable TORRES, [...] Unknown U navailable Care Team Providers Care Auto Claims Adjuster Name Role Phone Mannie MUÑOZ, Vee Primary Care Physician Encounter [facility] Date(s): 01/31/24 - 03/01/24 [facility] Adult [address] [place] [address]- Encounter Type: Triage Allergies, Adverse Reactions, Alerts [...] Vaccine (oldterm) 6 10/29/05 Given 1Result Comment: [facility] [id number] 2Result Comment: [facility] [id number] 3Admin Note: VIS GIVEN 4Admin Note: [facility] VIS reviewed 5Admin Note: vis given 6Admin Note: vis given Medications Albuterol (Eqv-Ventolin HFA) 90 mcg/inh inhalation aerosol 2 puffs, Inhalation, Every 6 hours, # 8.5 Gm, 0 Refills, Maintenance, 03/11/23 9:03:00 AM EST, [email or web address], Partial fill upon patient request [...] 9:22:00 PM EDT, Route to Pharmacy Electronically, [email or web address], 160, cm, 08/13/23 11:09:00 EDT, Height, 72, kg, 04/15/23 22:25:00 EST, Dry Weight Start Date: 09/27/23 Status: Ordered Quantity: 45.0 Unit: tablet Repeat number: 2 atorvastatin 80 mg oral tablet 1 tablet, By Mouth, Daily at bedtime, # 90 tablet, 1 Refills, Maintenance, 10/19/23 11:08:00 AM EDT,[facility], 157.9, cm, 10/14/23 16:09:00 EDT, [...] DX URINRY INCONTINENCE R39.81, SIM 99 VENU [phone], 02/13/22 2:43:00 PM EST, Supply Start Date: 02/13/22 Status: Ordered Quantity: 180.0 Unit: each Repeat number: 12 Indication: Unspecified urinary incontinence Doculase By Mouth, Daily, 0 Refills, Maintenance, 04/28/23 9:43:00 AM EST, Partial fill upon patient request if the prescription is for a schedule II opioid drug. Start Date: 04/28/23 Status: Ordered Repeat number: 1 ergocalciferol 17017 iu oral capsule 50,000 International_Units, 1, capsule, By Mouth, Every week, Take 1 capsule of the 50,000 weekly for the next 8 weeks followed by [id number]-[id number] 2000 international units of vitamin D daily, # 8 capsule, Refills 0, Tot. Refills 0, Maintenance, 07/31/23 4:09:00 PM EDT, Route to Pharmacy Electronically, [email or web address], Partial fill upon patient request [...] 0 Refills, Maintenance, 09/02/22 2:25:00 PM EDT, [place], [email or web address], Partial fill upon patient request [...] INCONTINENCE R39.81, SIM 99 RICK AND MARIE [phone], 02/13/22 2:45:00 PM EST, Supply Start Date: 02/13/22 Status: Ordered Quantity: 300.0 Unit: each Repeat number: 12 Liquid Calcium with Vitamin D 1000 mg-10 mcg/30 mL oral liquid See Instructions, TAKE 30MLS (2 TABLESPOONS) BY MOUTH ONCE DAILY, # 2,838 Unknown, 0 Refills, Maintenance, 09/21/23 12:03:00 PM EDT, [facility], 94, TAKE 30MLS [...] 8:38:00 AM EDT, Route to Pharmacy Electronically, [facility], Partialfill upon patient [...] 11 Refills, Maintenance, 11/30/23 7:46:00 AM EDT, [facility], 157.9, cm, 10/14/23 16:09:00 [...] EST, Route to Pharmacy Electronically, [email or web address], Partial fill upon patient request [...] Dr Dalal/ [facility] Social History Social History Type Response Smoking Status Former smoker; Tobac co user in household: No; Other: start age 40 quit 2013; entered on: 01/07/18 Sex Sex Representation Female (finding) Patient Care team information Care Team Personnel Name: Alejo Cadet MD Position: [facility] Physician - Gastroenterology Member Role: Lifetime Consulting Physician Address: [address] [place] [address], [address] [facility] [address] Telecom: Name: Rafita Edward MD Position: [facility] Renal MD Member Role: Lifetime Consulting Physician Address: [address] [place] [address] [address] [facility] [place] [address]- Telecom: Name: Prashanth Rose RN Position: [facility] RN Member Role: Primary Care Nurse Name: Dorothea Wang RN Position: [facility] RN Member Role: Primary Care Nurse Name: Ledy Forbes RN Position: [facility] SN RN Member Role: Primary Care Nurse Name: Kavita Pagan RN Position: [facility] Onco RN Member Role: Primary Care Nurse Name: Prashanth Carmona RN Position: [facility] RN Member Role: Primary Care Nurse Name: Jaspreet Menchcaa MD Position: [facility] Renal MD Member Role: Lifetime Consulting Physician Address: [address] [place] [address] [address] [facility] [place], [place] [address] Telecom: Name: Maryam Ayers RN Position: [facility] ED RN W/OE and Tasks Member Role: Primary Care Nurse Name: Maxine Diallo RN Position: [facility] RN Member Role: Primary Care Nurse Name: Estephanie Carballo RN Position: [facility] RN Member Role: Primary Care Nurse Name: Odalys Chau RN Position: [facility] SN RN Member Role: Primary Care Nurse Name: Johnna Wyman CNM Position: [facility] Baker Pie Member Role: Primary Care Nurse Address: [address] [place] [id number] Telecom: Name: Reji Willson RN Position: [facility] RN Member Role: Primary Care Nurse Name: Katie Holden RN Position: [facility] AMB Nurse Member Role: Primary Care Nurse Name: Evelyne Garcia RN Position: [facility] RN Member Role: Primary Care Nurse Name: Sol Nobles Position: [facility] AMB Nurse Member Role: Lifetime Consulting Physician Name: Johnna Baker RN Position: [facility] RN Member Role: Primary Care Nurse Name: Fantasma Ac RN Position: [facility] SN RN Member Role: Primary Care Nurse Name: Shanda Sharp RN Position: [facility] RN Member Role: Primary Care Nurse Name: Sabi Ruiz Position: [facility] software configuration specialist Member Role: Senior Service Aide Name: Mannie MUÑOZ, Vee Position: [facility] Physician - Primary Care Member Role: PCP Address: [address] [facility] [address] [place] [address]- [place] Telecom: Name: Ta Kolb RN Position: [facility] ED RN W/OE and Tasks Member Role: Primary Care Nurse Name: Neftaly Morley MD Position: [facility] Outreach Member Role: Lifetime Consulting Physician Address: [address] [facility] [place] [address]- Telecom: Name: Eva Camarena RN Position: [facility] Office Staff Member Role: Primary Care Nurse Name: Brenda Brown RN Position: [facility] SN RN Member Role: Primary Care Nurse Name: David Mcwilliams MD Position: [facility] Renal MD Member Role: Lifetime Consulting Physician Address: [address] [facility] [address] [facility] [place] [address]- [place] Telecom: Name: Michelle Castillo RN Position: [facility] RN Member Role: Primary Care Nurse Name: Sabi Grady RN Position: [facility] RN Member Role: Primary Care Nurse Name: Sheryl Gaytan Position: [facility] RN Member Role: Primary Care [...]
--- OUTSIDE RECORDS SUMMARY | 2024-03-24 13:17 | XMS_ITS | Clinical Summary ---
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 Active 03-22 00:00: 00 PAROXYSMAL ATRIAL FIBRILLATION Active 03-22 00:00: 00 HYPERTENSIVE HEART DISEASE WITH HEART FAILURE Active 03-22 00:00: 00 CHRONIC SYSTOLIC (CONGESTIVE) HEART FAILURE Active 03-22 00:00: 00 TYPE 2 DIABETES MELLITUS W DIABETIC CHRONIC KIDNEY DISEASE Active 03-22 00:00: 00 CHRONIC KIDNEY DISEASE, STAGE 4 (SEVERE) Active 03-22 00:00: 00 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 03-22 00:00: 00 SECONDARY HYPERPARATHY ROIDISM OF RENAL ORIGIN Active 03-22 00:00: 00 ATHSCL HEART DISEASE OF [place] CORONARY ARTERY W/O ANG PCTRS Active 03-22 00:00: 00 UNSPECIFIED OSTEOARTHRIT IS, UNSPECIFIED SITE Active 03-22 00:00: 00 AGE-RELATED OSTEOPOROSIS 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 Active 03-22 00:00: 00 PURE HYPERCHOLEST EROLEMIA, UNSPECIFIED Active 03-22 00:00: 00 OBSTRUCTIVE SLEEP APNEA (ADULT) (PEDIATRIC) Active 03-22 00:00: 00 Oth intvrt disc degen, lum rgn w/o lum bck or lw extrm pain Active 03-22 00:00: 00 OTHER CERVICAL DISC DEGENERATION , UNSP CERVICAL REGION Active 03-22 00:00: 00 ISCHEMIC CARDIOMYOPAT HY Active 03-22 00:00: 00 GOUT, UNSPECIFIED Active 03-22 00:00: 00 OBESITY, UNSPECIFIED Active 03-22 00:00: 00 BODY MASS INDEX [BMI] 27.0-27.9, ADULT Active 03-22 00:00: 00 Problems related to health literacy Active 03-22 00:00: 00 PERSONAL HISTORY OF NICOTINE DEPENDENCE Active 03-22 00:00: 00 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 Ordering Clinician Indication Dosage Frequency Signature (SIG) Comments Components allopurinol 100 mg tablet 2020-03 00:00: 00 11-13 23:59 :00 No [id number] 1 tablet DAILY 1 tablet DAILY (route: oral) Med Classific ation: Gout and Hyperuric emia Therapy atorvastati n 80 mg tablet 2020-03 00:00: 00 11-13 23:59 :00 No [id number] 1 tablet DAILY 1 tablet DAILY (route: oral) Med Classific ation: Cardiovas cular Therapy Agents Colace 100 mg capsule 2020-03 00:00: 00 11-13 23:59 :00 No [id number] 1 capsule NEEDED 1 capsule NEEDED (route: oral) Med Classific ation: Gastroint estinal Therapy Agents colchicine 0.6 mg capsule 2020-03 00:00: 00 11-13 23:59 :00 No [id number] 2 capsule NEEDED 2 capsule NEEDED (route: oral) Med Classific ation: Gout and Hyperuric emia Therapy Despec-DM (phenylephr ine-DM-guai f) 5 mg-10 mg-100 mg/5 mL oral liquid 2020-03 00:00: 00 11-13 23:59 :00 No [id number] Per instruc tions NEEDED Per instructio ns NEEDED (route: oral) Med Classific ation: Respirato ry Therapy Agents Lasix 20 mg tablet 2020-03 00:00: 00 11-13 23:59 :00 No [id number] 1 tablet DAILY 1 tablet DAILY (route: oral) Med Classific ation: Cardiovas cular Therapy Agents Lasix 40 mg tablet 2020-03 00:00: 00 11-13 23:59 :00 No [id number] 1 tablet DAILY 1 tablet DAILY (route: oral) Med Classific ation: Cardiovas cular Therapy Agents melatonin 3 mg tablet 2020-03 00:00: 00 11-13 23:59 :00 No [id number] 2 tablet BEDTIME 2 tablet BEDTIME (route: oral) Med Classific ation: Central Nervous System Agents Miralax 17 gram/dose oral powder 2020-03 00:00: 00 11-13 23:59 :00 No [id number] Per instruc tions NEEDED Per instructio ns NEEDED (route: oral) Med Classific ation: Gastroint estinal Therapy Agents nystatin 100,000 unit/gram topical powder 2020-03 00:00: 00 11-13 23:59 :00 No [id number] Per instruc tions 2 TIMES DAILY Per instructio ns 2 TIMES DAILY (route: topical) Med Classific ation: Dermatolo gical Protonix 40 mg tablet,beto yed release 2020-03 00:00: 00 11-13 23:59 :00 No [id number] 1 tablet DAILY 1 tablet DAILY (route: oral) Med Classific ation: Gastroint estinal Therapy Agents Vitamin B-12 100 mcg tablet 2020-03 00:00: 00 11-13 23:59 :00 No [id number] 1 tablet DAILY 1 tablet DAILY (route: oral) Med Classific ation: Electroly te Balance-N utritiona l Products Myrbetriq 50 mg tablet,exte nded release 11-16 00:00: 00 12-31 23:59 :00 No [id number] 1 tablet DAILY 1 tablet DAILY (route: oral) Med Classific ation: Genitouri nary Therapy calcitriol 0.25 mcg capsule 11-06 00:00: 00 11-16 00:00 :00 No [id number] Per instruc tions Per instructio ns (route: oral) Med Classific ation: Electroly te Balance-N utritiona l Products calcitriol 0.25 mcg capsule 11-06 00:00: 00 04-15 23:59 :00 No [id number] Per instruc tions THREE TIMES A WEEK Per instructio ns THREE TIMES A WEEK (route: oral) Med Classific ation: Electroly te Balance-N utritiona l Products pantoprazol e 40 mg tablet,beto yed release 10-31 00:00: 00 11-16 00:00 :00 No [id number] Per instruc tions Per instructio ns (route: oral) Med Classific ation: Gastroint estinal Therapy Agents pantoprazol e 40 mg tablet,beto yed release 10-31 00:00: 00 04-15 23:59 :00 No [id number] Per instruc tions EVERY DAY Per instructio ns EVERY DAY (route: oral) Med Classific ation: Gastroint estinal Therapy Agents allopurinol 100 mg tablet 11-16 00:00: 00 04-15 23:59 :00 No [id number] .5 tablet DAILY .5 tablet DAILY (route: oral) Med Classific ation: Gout and Hyperuric emia Therapy allopurinol 100 mg tablet 10-15 00:00: 00 11-16 00:00 :00 No [id number] Per instruc tions EVERY DAY Per instructio ns EVERY DAY (route: oral) Med Classific ation: Gout and Hyperuric emia Therapy atorvastati n 80 mg tablet 10-15 00:00: 00 11-16 00:00 :00 No [id number] Per instruc tions Per instructio ns (route: oral) Med Classific ation: Cardiovas cular Therapy Agents atorvastati n 80 mg tablet 10-15 00:00: 00 11-16 00:00 :00 No [id number] Per instruc tions AT BEDTIME Per instructio ns AT BEDTIME (route: oral) Med Classific ation: Cardiovas cular Therapy Agents cephalexin 500 mg tablet 11-16 00:00: 00 12-31 23:59 :00 No [id number] 1 tablet 2 TIMES DAILY 1 tablet 2 TIMES DAILY (route: oral) Med Classific ation: Anti-Infe ctive Agents cyanocobala min (B12)-cobam amide 5,000 mcg-100 mcg sublingual tablet 11-16 00:00: 00 04-15 23:59 :00 No [id number] 1 tablet DAILY 1 tablet DAILY (route: sublingual ) Med Classific ation: Electroly te Balance-N utritiona l Products melatonin 3 mg tablet 11-16 00:00: 00 04-15 23:59 :00 No [id number] 1 tablet BEDTIME 1 tablet BEDTIME (route: oral) Med Classific ation: Central Nervous System Agents metoprolol succinate ER 100 mg tablet,exte nded release 24 hr 11-16 00:00: 00 04-15 23:59 :00 No [id number] 1 tablet DAILY 1 tablet DAILY (route: oral) Med Classific ation: Cardiovas cular Therapy Agents polyethylen e glycol 3350 17 gram oral powder packet 11-16 00:00: 00 04-15 23:59 :00 No [id number] 1 powder in packet DAILY 1 powder in packet DAILY (route: oral) Med Classific ation: Gastroint estinal Therapy Agents Senna Plus 8.6 mg-50 mg capsule 11-16 00:00: 00 04-15 23:59 :00 No [id number] 1 capsule 2 TIMES DAILY 1 capsule 2 TIMES DAILY (route: oral) Med Classific ation: Gastroint estinal Therapy Agents sodium bicarbonate 650 mg tablet 11-16 00:00: 00 12-31 23:59 :00 No [id number] 1 tablet 2 TIMES DAILY 1 tablet 2 TIMES DAILY (route: oral) Med Classific ation: Gastroint estinal Therapy Agents torsemide 20 mg tablet 11-16 00:00: 00 04-15 23:59 :00 No [id number] 1 tablet EVERY OTHER DAY 1 tablet EVERY OTHER DAY (route: oral) Med Classific ation: Cardiovas cular Therapy Agents cephalexin 500 mg tablet 12-18 00:00: 00 12-23 23:59 :00 No [id number] 500 mg 4 TIMES DAILY 500 mg 4 TIMES DAILY (route: oral) Med Classific ation: Anti-Infe ctive Agents potassium chloride 20 mEq oral packet 12-18 00:00: 00 12-23 23:59 :00 No [id number] 20 mEq DAILY 20 mEq DAILY (route: oral) Med Classific ation: Electroly te Balance-N utritiona l Products atorvastati n 80 mg tablet 2021-03 00:00: 00 04-15 23:59 :00 No [id number] 1 tablet BEDTIME 1 tablet BEDTIME (route: oral) Med Classific ation: Cardiovas cular Therapy Agents torsemide 20 mg tablet 04-07 00:00: 00 04-23 23:59 :00 No [id number] 1 tablet DAILY 1 tablet DAILY (route: oral) Med Classific ation: Cardiovas cular Therapy Agents allopurinol 100 mg tablet 03-25 00:00: 00 12-21 23:59 :00 No [id number] Per instruc tions EVERY DAY Per instructio ns EVERY DAY (route: oral) Med Classific ation: Gout and Hyperuric emia Therapy metoprolol succinate ER 100 mg tablet,exte nded release 24 hr 03-25 00:00: 00 12-21 23:59 :00 No [id number] Per instruc tions EVERY DAY Per instructio ns EVERY DAY (route: oral) Med Classific ation: Cardiovas cular Therapy Agents atorvastati n 80 mg tablet 04-21 00:00: 00 12-21 23:59 :00 No [id number] 1 tablet BEDTIME 1 tablet BEDTIME (route: oral) Med Classific ation: Cardiovas cular Therapy Agents calcitriol 0.25 mcg capsule 04-21 00:00: 00 12-21 23:59 :00 No [id number] 1 capsule DAILY 1 capsule DAILY (route: oral) Med Classific ation: Electroly te Balance-N utritiona l Products calcium cit 1,000 mg calcium-vit D3 10 mcg(400 unit)/30 mL oral liquid 04-21 00:00: 00 12-21 23:59 :00 No [id number] 30 mL DAILY 30 mL DAILY (route: oral) Med Classific ation: Electroly te Balance-N utritiona l Products cyanocobala min (vit B-12) 1,000 mcg tablet 04-21 00:00: 00 12-21 23:59 :00 No [id number] 1 tablet DAILY 1 tablet DAILY (route: oral) Med Classific ation: Electroly te Balance-N utritiona l Products fluticasone propionate 50 mcg/actuati on nasal spray,suspe nsion 04-21 00:00: 00 12-21 23:59 :00 No [id number] 1 spray 2 TIMES DAILY 1 spray 2 TIMES DAILY (route: nasal) Med Classific ation: Respirato ry Therapy Agents melatonin 1 mg tablet 04-21 00:00: 00 12-21 23:59 :00 No [id number] 2 tablet BEDTIME 2 tablet BEDTIME (route: oral) Med Classific ation: Central Nervous System Agents metolazone 2.5 mg tablet 04-21 00:00: 00 12-21 23:59 :00 No [id number] 0.5 tablet DAILY 0.5 tablet DAILY (route: oral) Med Classific ation: Cardiovas cular Therapy Agents Miralax 17 gram oral powder packet 04-21 00:00: 00 12-21 23:59 :00 No [id number] 17 g DAILY 17 g DAILY (route: oral) Med Classific ation: Gastroint estinal Therapy Agents Myrbetriq 50 mg tablet,exte nded release 04-21 00:00: 00 12-21 23:59 :00 No [id number] 1 tablet DAILY 1 tablet DAILY (route: oral) Med Classific ation: Genitouri nary Therapy nitroglycer in 0.4 mg sublingual tablet 04-21 00:00: 00 12-21 23:59 :00 No [id number] 1-3 tablet DAILY 1-3 tablet DAILY (route: sublingual ) Med Classific ation: Cardiovas cular Therapy Agents ondansetron HCl 4 mg tablet 04-21 00:00: 00 12-21 23:59 :00 No [id number] 1 tablet DAILY 1 tablet DAILY (route: oral) Med Classific ation: Gastroint estinal Therapy Agents pantoprazol e 40 mg tablet,beto yed release 04-21 00:00: 00 12-21 23:59 :00 No [id number] 1 tablet DAILY 1 tablet DAILY (route: oral) Med Classific ation: Gastroint estinal Therapy Agents Senna with Docusate Sodium 8.6 mg-50 mg tablet 04-21 00:00: 00 12-21 23:59 :00 No [id number] 1 tablet 2 TIMES DAILY 1 tablet 2 TIMES DAILY (route: oral) Med Classific ation: Gastroint estinal Therapy Agents spironolact one 25 mg tablet 04-21 00:00: 00 04-23 23:59 :00 No [id number] 1 tablet DAILY 1 tablet DAILY (route: oral) Med Classific ation: Cardiovas cular Therapy Agents Ventolin HFA 90 mcg/actuati on aerosol inhaler 04-21 00:00: 00 12-21 23:59 :00 No [id number] 2 puff EVERY 6 HOURS 2 puff EVERY 6 HOURS (route: inhalation ) Med Classific ation: Respirato ry Therapy Agents spironolact one 50 mg tablet 04-23 00:00: 00 12-21 23:59 :00 No [id number] 1 tablet DAILY 1 tablet DAILY (route: oral) Med Classific ation: Cardiovas cular Therapy Agents torsemide 20 mg tablet 04-23 00:00: 00 12-21 23:59 :00 No [id number] 2 tablet 2 TIMES DAILY 2 tablet 2 TIMES DAILY (route: oral) Med Classific ation: Cardiovas cular Therapy Agents albuterol sulfate HFA 90 mcg/actuati on aerosol inhaler 2023-03 0 00:00: 00 Yes [id number] 2 puff EVERY 6 HOURS 2 puff EVERY 6 HOURS (route: inhalation ) Med Classific ation: Respirato ry Therapy Agents allopurinol 100 mg tablet 2023-03 0 00:00: 00 Yes [id number] 0.5 tablet DAILY 0.5 tablet DAILY (route: oral) Med Classific ation: Gout and Hyperuric emia Therapy atorvastati n 80 mg tablet 2023-03 0 00:00: 00 Yes [id number] 1 tablet BEDTIME 1 tablet BEDTIME (route: oral) Med Classific ation: Cardiovas cular Therapy Agents calcitriol 0.25 mcg capsule 2023-03 0 00:00: 00 Yes [id number] 1 capsule DAILY 1 capsule DAILY (route: oral) Med Classific ation: Electroly te Balance-N utritiona l Products Colace 100 mg capsule 2023-03 0 00:00: 00 Yes [id number] 1 capsule DAILY 1 capsule DAILY (route: oral) Med Classific ation: Gastroint estinal Therapy Agents doxycycline hyclate 100 mg tablet 2023-03 0- 00:00: 00 01-04 23:59 :00 No [id number] 1 tablet 2 TIMES DAILY 1 tablet 2 TIMES DAILY (route: oral) Med Classific ation: Anti-Infe ctive Agents Flonase Allergy Relief 50 mcg/actuati on nasal spray,suspe nsion 2023-03 0 00:00: 00 Yes [id number] 1 spray DAILY 1 spray DAILY (route: nasal) Med Classific ation: Respirato ry Therapy Agents Vitamin D2 1,250 mcg (50,000 unit) capsule 2023-03 0-04 00:00: 00 Yes [id number] 1 capsule WEEKLY 1 capsule WEEKLY (route: oral) Med Classific ation: Electroly te Balance-N utritiona l Products Tylenol 8 Hour 650 mg tablet,exte nded release 2023-03 0-16 00:00: 00 Yes [id number] 1 tablet NEEDED 1 tablet NEEDED (route: oral) Med Classific ation: Analgesic , Anti-infl ammatory or Antipyret ic melatonin 3 mg capsule 2023-03 0-15 00:00: 00 Yes [id number] 2 capsule BEDTIME 2 capsule BEDTIME (route: oral) Med Classific ation: Central Nervous System Agents betamethaso ne valerate 0.1 % topical cream 2023-03 1 00:00: 00 Yes [id number] Per instruc tions DIRECTED Per instructio ns DIRECTED (route: topical) Med Classific ation: Dermatolo gical Immunizations Ordered Immunization Name Filled Immunization Name Date Status Comments Refusal Reason COVID BOOSTER, COVID BOOSTER 2023-12-22 00:00:00 INFLUENZA, TIV (INACTIVATED) 2023-12-22 00:00:00 COVID-19, COVID-19 2023-12-16 00:00:00 INFLUENZA, TIV (INACTIVATED) 2023-12-16 00:00:00 Vital Signs Vital Name Observation Time Observation Value Commen ts Temperature 2024-03-21 08:41:00.000 97.9 [degF] Temperature 2024-03-16 11:08:00.000 98.4 [degF] Temperature 2024-03-09 11:56:00.000 97.3 [degF] Temperature 2024-03-02 08:43:00.000 97.6 [degF] Temperature 2024-02-29 08:21:00.000 97.1 [degF] Temperature 2024-02-24 09:53:00.000 98.8 [degF] Temperature 2024-02-22 12:47:00.000 98 [degF] Pulse 2024-03-21 08:41:00.000 62 /min Pulse 2024-03-16 11:08:00.000 66 /min Pulse 2024-03-09 11:56:00.000 62 /min Pulse 2024-03-02 08:43:00.000 62 /min Pulse 2024-02-29 08:21:00.000 64 /min Pulse 2024-02-24 09:53:00.000 64 /min Pulse 2024-02-22 12:47:00.000 64 /min O2 Saturation (%) 2024-03-21 08:41:00.000 96 % O2 Saturation (%) 2024-03-16 11:08:00.000 98 % O2 Saturation (%) 2024-03-09 11:56:00.000 99 % O2 Saturation (%) 2024-03-02 08:43:00.000 99 % O2 Saturation (%) 2024-02-29 08:24:00.000 99 % O2 Saturation (%) 2024-02-24 09:53:00.000 95 % O2 Saturation (%) 2024-02-22 12:47:00.000 97 % Respirations 2024-03-16 11:08:00.000 18 /min Respirations 2024-02-24 09:53:00.000 18 /min Respirations 2024-02-22 12:47:00.000 18 /min Weight (lbs) 2024-03-21 08:41:00.000 171 [lb_av] Weight (lbs) 2024-03-16 11:08:00.000 171 [lb_av] Weight (lbs) 2024-03-09 11:56:00.000 170 [lb_av] Weight (lbs) 2024-03-02 08:43:00.000 171 [lb_av] Weight (lbs) 2024-02-29 08:24:00.000 171 [lb_av] Weight (lbs) 2024-02-24 09:53:00.000 170 [lb_av] Weight (lbs) 2024-02-22 12:47:00.000 171 [lb_av] Systolic Blood Pressure 2024-03-21 08:41:00.000 118 mm [Hg] Systolic Blood Pressure 2024-03-16 11:08:00.000 106 mm [Hg] Systolic Blood Pressure 2024-03-09 11:56:00.000 124 mm [Hg] Systolic Blood Pressure 2024-03-02 08:43:00.000 110 mm [Hg] Systolic Blood Pressure 2024-02-29 08:21:00.000 104 mm [Hg] Systolic Blood Pressure 2024-02-24 09:53:00.000 108 mm [Hg] Systolic Blood Pressure 2024-02-22 12:47:00.000 118 mm [Hg] Diastolic Blood Pressure 2024-03-21 08:41:00.000 70 mm [Hg] Diastolic Blood Pressure 2024-03-16 11:08:00.000 64 mm [Hg] Diastolic Blood Pressure 2024-03-09 11:56:00.000 70 mm [Hg] Diastolic Blood Pressure 2024-03-02 08:43:00.000 62 mm [Hg] Diastolic Blood Pressure 2024-02-29 08:21:00.000 62 mm [Hg] Diastolic Blood Pressure 2024-02-24 09:53:00.000 68 mm [Hg] Diastolic Blood Pressure 2024-02-22 12:47:00.000 70 mm [Hg] Plan of Treatment Planned Activity Planned Date Details Comments Future Scheduled Test SKILLED NU RSE TO EVALUATE PATIENT, IDENTIFY PRIMARY AND CO-MORBID CONDITIONS CODED PER CODING GUIDELINES, AND DEVELOP PATIENT SPECIFIC PLAN OF CARE THAT INCLUDES PATIENT GOAL FOR HOME HEALTH. [code = SKILLED NURSE TO EVALUATE PATIENT, IDENTIFY PRIMARY AND CO-MORBID CONDITIONS CODED PER CODING GUIDELINES, AND DEVELOP PATIENT SPECIFIC PLAN OF CARE THAT INCLUDES PATIENT GOAL FOR HOME HEALTH.] Future Scheduled Test SKILLED NU RSE TO REVIEW PATIENT MEDICATIONS. INSTRUCT PATIENT/CAREGIVER ON MONITORING OF EFFECTIVENESS, ADVERSE DRUG REACTIONS, SIDE EFFECTS OF ALL MEDICATIONS (PRESCRIPTION/-OTC), AND HOW AND WHEN TO REPORT PROBLEMS. [code = SKILLED NURSE TO REVIEW PATIENT MEDICATIONS. INSTRUCT PATIENT/CAREGIVER ON MONITORING OF EFFECTIVENESS, ADVERSE DRUG REACTIONS, SIDE EFFECTS OF ALL MEDICATIONS (PRESCRIPTION/-OTC), AND HOW AND WHEN TO REPORT PROBLEMS.] Future Scheduled Test SKILLED NU RSE FOR O/A, TEACHING, AND MANAGEMENT OF CAD, CARDIOMYOPATHY. [code = SKILLED NURSE FOR O/A, TEACHING, AND MANAGEMENT OF CAD, CARDIOMYOPATHY.] Future Scheduled Test SKILLED NU RSE FOR O/A, TEACHING AND MANAGEMENT OF CKD FOR EARLY IDENTIFICATION OF EXACERBATION OF DISEASE PROCESS [code = SKILLED NURSE FOR O/A, TEACHING AND MANAGEMENT OF CKD FOR EARLY IDENTIFICATION OF EXACERBATION OF DISEASE PROCESS] Future Scheduled Test NEED FOR S KILLED TEACHING AND INTERVENTION RELATED TO STAGE 2 ULCER TO R ANKLE SKILLED NURSE OR TRAINED PATIENT/CAREGIVER TO PERFORM WOUND CARE CLEANSE/IRRIGATE WITH NS PAT DRY, APPLY 0.1% BETAMETHASONE TO PERIWOUND AND MID LEG, APPLY PROMOGRAM MATRIX TO WOUND BED, COVER WITH AQUACEL AG ( OVER THE PROMOGRAN), WRAP WITH GAUZE ROLL, SECURE WITH TAPE, THEN APPLYBTUBIGRIP. WOUND CARE TO BE PERFORMED 3X PER WEEK AND PRN IF SOILED OR DISLODGED. 1-2 PRN SKILLED NURSE VISITS FOR WOUND CARE DUE TO COMPLICATIONS. SKILLED NURSE TO OBTAIN WOUND CULTURE PRN S/S OF INFECTION. WOUND CARE WILL BE PERFORMED BY TRAINED CAREGIVER ON DAYS WHEN SKILLED NURSE IS NOT SCHEDULED FOR A VISIT. DISCONTINUE WOUND CARE/SUPPLIES ONCE WOUND IS HEALED. [code = NEED FOR SKILLED TEACHING AND INTERVENTION RELATED TO STAGE 2 ULCER TO R ANKLE SKILLED NURSE OR TRAINED PATIENT/CAREGIVER TO PERFORM WOUND CARE CLEANSE/IRRIGATE WITH NS PAT DRY, APPLY 0.1% BETAMETHASONE TO PERIWOUND AND MID LEG, APPLY PROMOGRAM MATRIX TO WOUND BED, COVER WITH AQUACEL AG ( OVER THE PROMOGRAN), WRAP WITH GAUZE ROLL, SECURE WITH TAPE, THEN APPLYBTUBIGRIP. WOUND CARE TO BE PERFORMED 3X PER WEEK AND PRN IF SOILED OR DISLODGED. 1-2 PRN SKILLED NURSE VISITS FOR WOUND CARE DUE TO COMPLICATIONS. SKILLED NURSE TO OBTAIN WOUND CULTURE PRN S/S OF INFECTION. WOUND CARE WILL BE PERFORMED BY TRAINED CAREGIVER ON DAYS WHEN SKILLED NURSE IS NOT SCHEDULED FOR A VISIT. DISCONTINUE WOUND CARE/SUPPLIES ONCE WOUND IS HEALED.] Future Scheduled Test SKILLED NU RSE TO PERFORM AND RECORD BLOOD SUGAR READING PRN FOR SIGNS AND SYMPTOMS OF HYPO/HYPERGLYCEMIA. [code = SKILLED NURSE TO PERFORM AND RECORD BLOOD SUGAR READING PRN FOR SIGNS AND SYMPTOMS OF HYPO/HYPERGLYCEMIA.] Future Scheduled Test SKILLED NU RSE FOR O/A AND TEACHING OF ENDOCRINE SYSTEM TO IDENTIFY CHANGES ASSOCIATED WITH EXACERBATION OF HYPERPARATHYROIDISM FOR EARLY INTERVENTION OF COMPLICATIONS. [code = SKILLED NURSE FOR O/A AND TEACHING OF ENDOCRINE SYSTEM TO IDENTIFY CHANGES ASSOCIATED WITH EXACERBATION OF HYPERPARATHYROIDISM FOR EARLY INTERVENTION OF COMPLICATIONS.] Future Scheduled Test SKILLED NU RSE TO INSTRUCT PATIENT/CAREGIVER ON SIGNS AND SYMPTOMS, RISK FACTORS, COMPLICATIONS, AND MANAGEMENT OF ATRIAL FIBRILLATION. [code = SKILLED NURSE TO INSTRUCT PATIENT/CAREGIVER ON SIGNS AND SYMPTOMS, RISK FACTORS, COMPLICATIONS, AND MANAGEMENT OF ATRIAL FIBRILLATION.] Future Scheduled Test SKILLED NU RSE TO PROVIDE TEACHING ON SIGNS AND SYMPTOMS AND MANAGEMENT OF HYPERTENSION. [code = SKILLED NURSE TO PROVIDE TEACHING ON SIGNS AND SYMPTOMS AND MANAGEMENT OF HYPERTENSION.] Future Scheduled Test SKILLED NU RSE FOR O/A, TEACHING AND SELF-MANAGEMENT RELATED TO HEART FAILURE. INSTRUCT PATIENT/CAREGIVER ON SIGNS AND SYMPTOMS OF EXACERBATION TO REPORT AND IMPORTANCE OF OBTAINING AND RECORDING DAILY WEIGHT AND/OR MEASUREMENTS. SN OR TRAINED PATIENT/CAREGIVER TO OBTAIN WEIGHT DAILY AND WEIGHT GAIN OF 2 LBS OVERNIGHT OR 5 LBS IN 1 WEEK TO BE REPORTED TO PHYSICIAN/PROVIDER. IF UNABLE TO WEIGH PATIENT, SN OR TRAINED PATIENT/CAREGIVER TO OBTAIN MEASUREMENT OF L CALF IN CM DAILY AND REPORT AN INCREASE OF 1 CM TO PHYSICIAN/PROVIDER. [code = SKILLED NURSE FOR O/A, TEACHING AND SELF-MANAGEMENT RELATED TO HEART FAILURE. INSTRUCT PATIENT/CAREGIVER ON SIGNS AND SYMPTOMS OF EXACERBATION TO REPORT AND IMPORTANCE OF OBTAINING AND RECORDING DAILY WEIGHT AND/OR MEASUREMENTS. SN OR TRAINED PATIENT/CAREGIVER TO OBTAIN WEIGHT DAILY AND WEIGHT GAIN OF 2 LBS OVERNIGHT OR 5 LBS IN 1 WEEK TO BE REPORTED TO PHYSICIAN/PROVIDER. IF UNABLE TO WEIGH PATIENT, SN OR TRAINED PATIENT/CAREGIVER TO OBTAIN MEASUREMENT OF L CALF IN CM DAILY AND REPORT AN INCREASE OF 1 CM TO PHYSICIAN/PROVIDER.] Future Scheduled Test SKILLED NU RSE FOR O/A AND SKILLED TEACHING RELATED TO SIGNS AND SYMPTOMS AND MANAGEMENT OF ANEMIA. [code = SKILLED NURSE FOR O/A AND SKILLED TEACHING RELATED TO SIGNS AND SYMPTOMS AND MANAGEMENT OF ANEMIA.] Future Scheduled Test SKILLED NU RSE FOR O/A AND TEACHING OF DIABETIC MANAGEMENT INCLUDING BLOOD SUGAR MONITORING/USE OF GLUCOMETER, DIABETIC DIET, LOWER EXTREMITY SKIN INSPECTION, PROPER SKIN/FOOT CARE, AND SIGNS AND SYMPTOMS HYPO/HYPERGLYCEMIA TO REPORT. [code = SKILLED NURSE FOR O/A AND TEACHING OF DIABETIC MANAGEMENT INCLUDING BLOOD SUGAR MONITORING/USE OF GLUCOMETER, DIABETIC DIET, LOWER EXTREMITY SKIN INSPECTION, PROPER SKIN/FOOT CARE, AND SIGNS AND SYMPTOMS HYPO/HYPERGLYCEMIA TO REPORT.] Future Scheduled Test SKILLED NU RSE FOR O/A AND SKILLED TEACHING RELATED TO SIGNS AND SYMPTOMS AND MANAGEMENT OF OSTEOPOROSIS. [code = SKILLED NURSE FOR O/A AND SKILLED TEACHING RELATED TO SIGNS AND SYMPTOMS AND MANAGEMENT OF OSTEOPOROSIS.] Future Scheduled Test VIRTUAL SIT FREQUENCY: 1-6 PER WEEK X 3 WEEKS AND 6 PRN VIRTUAL VISITS MAY BE PERFORMED UTILIZING TELECOMMUNICATIONS SYSTEM TO OPTIMIZE SKILLED SERVICES FURNISHED ON THE PLAN OF CARE. SKILLED NURSE TO ESTABLISH SUPPORT MEASURES TO MINIMIZE RISK OF REHOSPITALIZATION, AND INSTRUCT PATIENT/CAREGIVER ON METHODS TO REDUCE AVOIDABLE HOSPITALIZATION. [code = VIRTUAL VISIT FREQUENCY: 1-6 PER WEEK X 3 WEEKS AND 6 PRN VIRTUAL VISITS MAY BE PERFORMED UTILIZING TELECOMMUNICATIONS SYSTEM TO OPTIMIZE SKILLED SERVICES FURNISHED ON THE PLAN OF CARE. SKILLED NURSE TO ESTABLISH SUPPORT MEASURES TO MINIMIZE RISK OF REHOSPITALIZATION, AND INSTRUCT PATIENT/CAREGIVER ON METHODS TO REDUCE AVOIDABLE HOSPITALIZATION.] Future Scheduled Test PATIENT NDIAYE S A RISK OF HOSPITALIZATION AND ED USE. SKILLED NURSE TO ESTABLISH SUPPORT MEASURES TO MINIMIZE RISK OF HOSPITALIZATION AND ED USE, AND INSTRUCT PATIENT/CAREGIVER ON METHODS TO REDUCE AVOIDABLE HOSPITALIZATION AND ED USE. [code = PATIENT HAS A RISK OF HOSPITALIZATION AND ED USE. SKILLED NURSE TO ESTABLISH SUPPORT MEASURES TO MINIMIZE RISK OF HOSPITALIZATION AND ED USE, AND INSTRUCT PATIENT/CAREGIVER ON METHODS TO REDUCE AVOIDABLE HOSPITALIZATION AND ED USE.] Future Scheduled Test SKILLED NU RSE TO PROVIDE INSTRUCTION TO PATIENT/CAREGIVER RELATED TO DISCHARGE PLANNING. [code = SKILLED NURSE TO PROVIDE INSTRUCTION TO PATIENT/CAREGIVER RELATED TO DISCHARGE PLANNING.] Future Scheduled Test SKILLED NU RSE TO PERFORM ENVIRONMENTAL SAFETY RISK ASSESSMENT AND FALL RISK ASSESSMENT AND PROVIDE INSTRUCTION TO IMPLEMENT ENVIRONMENTAL SAFETY AND FALL PREVENTION STRATEGIES THROUGHOUT THE CERTIFICATION PERIOD. SKILLED NURSE WILL MAINTAIN SITUATIONAL AWARENESS AND WILL NOTIFY CLINICAL OUTSIDE PLANT TECHNICIAN AND PHYSICIAN/PROVIDER WITH ANY CHANGE IN CONDITION. [code = SKILLED NURSE TO PERFORM ENVIRONMENTAL SAFETY RISK ASSESSMENT AND FALL RISK ASSESSMENT AND PROVIDE INSTRUCTION TO IMPLEMENT ENVIRONMENTAL SAFETY AND FALL PREVENTION STRATEGIES THROUGHOUT THE CERTIFICATION PERIOD. SKILLED NURSE WILL MAINTAIN SITUATIONAL AWARENESS AND WILL NOTIFY CLINICAL OUTSIDE PLANT TECHNICIAN AND PHYSICIAN/PROVIDER WITH ANY CHANGE IN CONDITION.] Future Scheduled Test SKILLED NU RSE FOR OBSERVATION AND ASSESSMENT OF PATIENTS PAIN LEVEL AND EFFECTIVENESS OF PAIN MANAGEMENT REGIMEN. SKILLED NURSE TO INSTRUCT PATIENT/CAREGIVER REGARDING PHARMACOLOGIC AND NON-PHARMACOLOGIC PAIN CONTROL MEASURES. SKILLED NURSE TO REPORT TO PHYSICIAN IF PAIN IS UNCONTROLLED WITH CURRENT PAIN MANAGEMENT REGIMEN. [code = SKILLED NURSE FOR OBSERVATION AND ASSESSMENT OF PATIENTS PAIN LEVEL AND EFFECTIVENESS OF PAIN MANAGEMENT REGIMEN. SKILLED NURSE TO INSTRUCT PATIENT/CAREGIVER REGARDING PHARMACOLOGIC AND NON-PHARMACOLOGIC PAIN CONTROL MEASURES. SKILLED NURSE TO REPORT TO PHYSICIAN IF PAIN IS UNCONTROLLED WITH CURRENT PAIN MANAGEMENT REGIMEN.] Future Scheduled Test SKILLED NU RSE TO ASSESS PATIENT'S SKIN INTEGRITY AND INSTRUCT PATIENT/CAREGIVER ON MEASURES TO PREVENT PRESSURE ULCERS. [code = SKILLED NURSE TO ASSESS PATIENT'S SKIN INTEGRITY AND INSTRUCT PATIENT/CAREGIVER ON MEASURES TO PREVENT PRESSURE ULCERS.] Goal 2024-02-18 Patient Goal - G ET RID OF WALKER AND HEAL MY WOUND Goal Patient Goal - HEAL MY WOUND Goal Provider Goal - A PLAN OF CARE WILL BE ESTABLISHED THAT MEETS PATIENT'S CUSTODIAL NEEDS AND INCLUDES PATIENT GOAL FOR HOME HEALTH. Goal Provider Goal - PATIENT/CAREGIVER WILL VERBALIZE UNDERSTANDING OF EDUCATION PROVIDED ON MEDICATIONS BY THE END OF THE CERTIFICATION PERIOD. Goal Provider Goal - PATIENT/CAREGIVER WILL VERBALIZE/DEMONSTRATE MANAGEMENT OF CARDIAC DISEASE PROCESS AND EXACERBATIONS WILL BE IDENTIFIED AND PROMPTLY REPORTED THROUGHOUT THE CERTIFICATION PERIOD. Goal Provider Goal - PATIENT/CAREGIVER WILL VERBALIZE UNDERSTANDING OF GENITOURINARY DISEASE PROCESS, AND EXACERBATIONS OF GENITOURINARY DISEASE WILL BE PROMPTLY IDENTIFIED FOR EARLY INTERVENTION THROUGHOUT THE CERTIFICATION PERIOD. Goal Provider Goal - WOUND CARE WILL BE COMPLETED AND PATIENT WILL HAVE IMPROVED WOUND STATUS EVIDENCED BY NO SIGNS AND SYMPTOMS OF INFECTION, DECREASED WOUND SIZE, AND/OR NO COMPLICATIONS BY THE END OF THE CERTIFICATION PERIOD. Goal Provider Goal - BLOOD SUGAR READING WILL BE OBTAINED ORDERED THROUGHOUT CERTIFICATION PERIOD. Goal Provider Goal - PATIENT/CAREGIVER WILL VERBALIZE SIGNS AND SYMPTOMS OF EXACERBATION OF HYPERPARATHYROIDISM TO REPORT TO NURSE/PHYSICIAN THROUGHOUT THE CERTIFICATION PERIOD. Goal Provider Goal - PATIENT/CAREGIVER WILL VERBALIZE UNDERSTANDING OF SIGNS AND SYMPTOMS, COMPLICATIONS, AND MANAGEMENT OF ATRIAL FIBRILLATION THROUGHOUT THE CERTIFICATION PERIOD. Goal Provider Goal - PATIENT/CAREGIVER WILL VERBALIZE SIGNS AND SYMPTOMS OF HYPERTENSION AND WILL BE ABLE TO DEMONSTRATE ABILITY TO MANAGE EXACERBATION BY END OF THE EPISODE. Goal Provider Goal - PATIENT/CAREGIVER WILL VERBALIZE/DEMONSTRATE KNOWLEDGE AND MANAGEMENT OF HEART FAILURE DISEASE PROCESS BY END OF EPISODE. Goal Provider Goal - PATIENT/CARGIVER WILL VERBALIZE UNDERSTANDING OF ANEMIA INCLUDING SIGNS AND SYMPTOMS, MANAGEMENT OF COMPLICATIONS, AND PRESCRIBED TREATMENT REGIMEN BY END OF EPISODE. Goal Provider Goal - PATIENT/CAREGIVER WILL VERBALIZE/DEMONSTRATE KNOWLEDGE OF DIABETIC MANAGEMENT. CHANGES IN DIABETIC STATUS WILL BE IDENTIFIED AND REPORTED TO PHYSICIAN FOR PROMPT INTERVENTION THROUGHOUT THE CERTIFICATION PERIOD. Goal Provider Goal - PATIENT/CAREGIVER WILL VERBALIZE UNDERSTANDING OF MUSCULOSKELETAL DISEASE INCLUDING SIGNS AND SYMPTOMS, MANAGEMENT, AND PRESCRIBED TREATMENT REGIMEN BY END OF EPISODE. Goal Provider Goal - PATIENT/CAREGIVER WILL UTILIZE VIRTUAL VISITS TO ACHIEVE GOALS OUTLINED ON THE PLAN OF CARE. PATIENT WILL HAVE SUPPORT MEASURES ESTABLISHED TO PREVENT HOSPITALIZATION AND PATIENT/CAREGIVER WILL VERBALIZE/DEMONSTRATE METHODS TO REDUCE AVOIDABLE HOSPITALIZATION THROUGHOUT THE CERTIFICATION PERIOD. Goal Provider Goal - PATIENT WILL HAVE SUPPORT MEASURES ESTABLISHED TO PREVENT HOSPITALIZATION AND ED USE AND PATIENT/CAREGIVER WILL VERBALIZE/DEMONSTRATE METHODS TO REDUCE AVOIDABLE HOSPITALIZATION AND ED USE BY END OF EPISODE. Goal Provider Goal - PATIENT/CAREGIVER WILL VERBALIZE UNDERSTANDING OF DISCHARGE PLANNING INSTRUCTIONS BY DATE OF DISCHARGE. Goal Provider Goal - PATIENT/CAREGIVER WILL VERBALIZE/DEMONSTRATE EFFECTIVE ENVIRONMENTAL SAFETY AND FALL PREVENTION STRATEGIES, WILL REMAIN SAFE IN THE COMMUNITY, AND WILL BE FREE OF DANGER TO SELF AND OTHERS THROUGHOUT THE CERTIFICATION PERIOD. Goal Provider Goal - PATIENT/CAREGIVER WILL DEMONSTRATE UNDERSTANDING OF PHARMACOLOGIC AND NONPHARMACOLOGIC PAIN CONTROL MEASURES AND PATIENT WILL HAVE IMPROVEMENT IN PAIN INTERFERING WITH ACTIVITY EVIDENCED BY PAIN CONTROLLED AT LEVEL OF 7 OR LESS BY END OF CERTIFICATION PERIOD. Goal Provider Goal - PATIENT/CAREGIVER WILL VERBALIZE UNDERSTANDING OF PRESSURE ULCER PREVENTION BY END OF THE EPISODE. Progress Notes Progress Notes <paragraph>[Visit Date: 2023 by ANI PEARCE LPN]:</paragraph><paragraph>SNV 03/21 ABNORMAL VITALS: WITHIN PARAMETERS FALLS: NO FALLS, USES WALKER TO AMBULATE OBSERVATION AND ASSESSMENT PROVIDED: PT PRESENTS ALERT ORIENTEDX3, COOPERATIVE DURING VISIT. UNNA BOOT IN PLACE RLE. PT ABLE TO WIGGLE TOES COMFORTABLY, CAP JOSE 2 SEC. PT DENIES ANY NUMBNESS OR TINGLING IN EXTREMETIES. VSS, LS CLEAR, DENIES PAIN, TR SWELLING BLE, WT STABLE, NO ISSUES WITH BOWELS OR BLADDER. APPETITE GOOD. NO CHANGES IN MEDICATIONS. EDUCATION: ELEVATE LEGS, LOW SODIUM DIET INTERVENTIONS NEEDED AT NEXT VISIT: ASSESSMENT TEACHING COMMUNICATION WITH MD: NOT NEEDED AT THIS VISIT NEXT MD APPOINTMENT: 1/2 WOUND CLINIC, KIDNEY 1/3 PT AND CAREGIVER INSTRUCTED TO CALL JOSE MANUEL GARCIA WITH ANY QUESTIONS OR CONCERNS AND/OR CHANGES IN CONDITION, STATE UNDERSTANDING</paragraph> Encounters Start Date/Time End Date/Time Encounter Type Admission Type Attending Clinicians Care Facility Care Department Encounter ID Discharge Date Discharge Status Discharge Condition Discharge Reason Percent Goals Met 2023-12-24 00:00:00 2024-04-21 00:00:00 Outpatient [facility] [id number] 16.67
== END 2024-03-24 12:05 | disposition home or self-care (01) ==
PROVIDERS: PCP Internal Medicine; Visit Provider Internal Medicine Nephrology
DX: N18.4 Chronic kidney disease, stage 4 (severe) (principal); D63.1 Anemia in chronic kidney disease

== ENCOUNTER → 2024-03-24 11:29 | Outpatient (BNVA) | payer MEDICARE, OTHER, SELFPAY | PROVIDERS: PCP Internal Medicine; Visit Provider Internal Medicine Nephrology | DX: I12.9 Hypertensive chronic kidney disease with stage 1 through stage 4 chronic kidney disease, or unspecified chronic kidney disease (principal); N18.4 Chronic kidney disease, stage 4 (severe); N25.81 Secondary hyperparathyroidism of renal origin; N28.89 Other specified disorders of kidney and ureter; D63.1 Anemia in chronic kidney disease | CPT/HCPCS: 96372; 99212; Q5106 ==

== ENCOUNTER 2024-04-28 14:58 | Outpatient (AMB) | payer MEDICARE, OTHER, SELFPAY ==
--- OUTSIDE RECORDS SUMMARY | 2024-04-28 15:02 | XMS_ITS | Clinical Summary ---
Author Organization [facility] Address [address] [place] [address] Care Team Providers Care Cs Associate Name Role Phone Vee Chand MD Primary Care Provider Allergies Active Allergy Reactions Criticality Noted Date Comments Lisinopril 08/25/2019 Medications Medication Sig Dispensed Refills Start Date End Date Status metoprolol succinate (TOPROL-XL) 24 hr tablet 100 mg Take 1 tablet (100 mg total) by mouth daily. 0 Active atorvastatin (LIPITOR) tablet 80 mg Take 1 tablet (80 mg total) by mouth daily. 0 Active acetaminophen (TYLENOL) 325 MG tablet Take 1 tablet (325 mg total) by mouth every 6 (six) hours as needed for pain. 0 Active pantoprazole (PROTONIX) 40 MG tablet Take 1 tablet (40 mg total) by mouth every morning on an empty stomach. 0 Active allopurinol (ZYLOPRIM) 100 MG tablet Take 0.5 tablets (50 mg total) by mouth daily. 0 Active Mirabegron ER 50 MG TB24 Take 50 mg by mouth. 0 Active vitamin B-12 (CYANOCOBALAMIN) 100 MCG tablet Take 0.5 tablets (50 mcg total) by mouth daily. 0 Active Melatonin 1 MG TABS tablet Take 1 tablet (1 mg total) by mouth every night at bedtime. 0 Active torsemide (DEMADEX) 20 MG tablet Take 1 tablet (20 mg total) by mouth daily. 20 MG 2 X A DAY MON-FRI, THEN 40 MG 2X A DAY fir,SAT AND SUN 0 Active calcitRIOL (ROCALTROL) capsule 0.25 mcg Take 1 capsule (0.25 mcg total) by mouth. 0 Active senna-docusate (PERICOLACE) 8.6-50 MG Take 1 tablet by mouth 2 (two) times a day. 0 Active spironolactone (ALDACTONE) tablet 25 mg Take 0.5 tablets (12.5 mg total) by mouth daily. 0 Active Active Problems No known active problems Immunizations Name Administration Dates Next Due Covid-19 (J&J) 06/18/2020 Family History Medical History Relation Name Comments Cancer Father lung Relation Name Status Comments Father lung Social History Tobacco Use Types Packs/Day Years Used Date Smoking Tobacco: Former Smokeless Tobacco: Never Comments:[age] yrs old Alcohol Use Standard Drinks/Week Comments No 0 (1 standard drink = 0.6 oz pur e alcohol) Sex and Gender Information Value Date Recorded Sex Assigned at Female 02/20/2022 2:59 PM EST Gender Identity Not on file Sexual Orientation Not on file Job Start Date Occupation Industry Not on file Not on file Not on file Last Filed Vital Signs Vital Sign Reading Time Taken Comments Blood Pressure 147/68 08/03/2023 2:55 PM EDT Pulse 64 08/03/2023 2:55 PM EDT Temperature 36.3 ??C (97.4 ??F) 08/03/2023 2:55 PM ED T Respiratory Rate 18 08/03/2023 12:27 PM EDT Oxygen Saturation 100% 08/03/2023 8:00 AM EDT Inhaled Oxygen Concentration - - Weight 77.1 kg (170 lb) 05/24/2023 1:05 PM EST Height 167.6 cm (5' 6 ) 04/11/2020 11:00 AM EST Body Mass Index 27.44 04/11/2020 11:00 AM EST Plan of Treatment Health Maintenance Due Date Last Done Comments Depression Screening 1952 Preventative Health Evaluation 1958 Shingrix-Zoster Vaccine (1 of 2) 1990 Fall Risk Assessment 2005 Osteoporosis Screening (DEXA Scan) 2005 RSV Adult > 60+ Yrs or (1 - 1-dose 75+ series) 11/06/2015 COVID-19 Vaccine ( season) 2023 02/04/2021, 06/19/2020, 06/18/2020, Additional history exists Influenza Vaccine (#1) 2023 2, 01/05/2021, 01/02/2021, Additional history exists DTap / Tdap / Td (2 - Td or Tdap) 02/13/2024 02/12/2014 Pneumococcal Vaccine Completed 08/09/2014, 06/09/2014, 06/20/2013, Additional history exists Hepatitis B Vaccines Aged Out No long er eligible based on patient's age to complete this topic RSV Ped < 20 months Aged Out No longe r eligible based on patient's age to complete this topic Care Teams Cs Associate Relationship Specialty Start Date End Date Vee Chand MD [address] [place] [address] PCP - General Internal Medicine 08/18/19
--- OUTSIDE RECORDS SUMMARY | 2024-04-28 15:02 | XMS_ITS | Clinical Summary ---
Author Organization [facility] Address [address] [place] [address] Care Team Providers Care Branch Operations Coordinator Name Role Phone Vee Chand MD Primary Care Provider Allergies Active Allergy Reactions Criticality Noted Date Comments Lisinopril 06/07/2019 Medications Medication Sig Dispensed Refills Start Date End Date Status acetaminophen (TYLENOL) 325 mg tablet Take 1 tablet (325 mg total) by mouth every 6 (six) hours as needed for pain. Active allopurinoL (ZYLOPRIM) 100 mg tablet Take 0.5 tablets (50 mg total) by mouth daily. Active atorvastatin (LIPITOR) 80 mg tablet Take 1 tablet (80 mg total) by mouth daily. Active calcitrioL (ROCALTROL) 0.25 mcg capsule Take 1 capsule (0.25 mcg total) by mouth. Active melatonin 1 mg tablet Take 1 tablet (1 mg total) by mouth every night at bedtime. Active metoprolol succinate (TOPROL-XL) 100 mg 24 hr tablet Take 1 tablet (100 mg total) by mouth daily. Active mirabegron (MYRBETRIQ) 50 mg tablet extended release 24 hr 24 hr tablet Take 50 mg by mouth. Active pantoprazole (PROTONIX) 40 mg EC tablet Take 1 tablet (40 mg total) by mouth every morning on an empty stomach. Active senna-docusate (PERICOLACE) 8.6-50 mg per tablet Take 1 tablet by mouth 2 (two) times a day. Active spironolactone (ALDACTONE) 25 mg tablet Take 0.5 tablets (12.5 mg total) by mouth daily. Active torsemide (DEMADEX) 20 mg tablet Take 1 tablet (20 mg total) by mouth daily. 20 MG 2 X A DAY MON-FRI, THEN 40 MG 2X A DAY fir,SAT AND SUN Active cyanocobalamin (VITAMIN B-12) 100 mcg tablet Take 0.5 tablets (50 mcg total) by mouth daily. Active Immunizations Name Administration Dates Next Due Pfizer SARS-CoV-2 COVID-19, mRNA, LNP-S, preservative free 02/04/2021 Surgical History Surgery Date Site/Laterality Comments HERNIA REPAIR PROCEDURE:HERNIA REPAIR Medical History Medical History Date Comments Heart attack (CMS/HCC) DX:Heart attack (HCC) Family History Medical History Relation Name Comments Cancer Father lung Relation Name Status Comments Father lung Social History Tobacco Use Types Packs/Day Years Used Date Smoking Tobacco: Former Smokeless Tobacco: Never Alcohol Use Standard Drinks/Week Comments No 0 (1 standard drink = 0.6 oz pur e alcohol) Sex and Gender Information Value Date Recorded Sex Assigned at Not on file Gender Identity Not on file Sexual Orientation Not on file Obstetrics History Last Filed Vital Signs Vital Sign Reading Time Taken Comments Blood Pressure 126/57 05/24/2023 1:05 PM EST Sit ting Left arm Pulse 60 05/24/2023 1:05 PM EST Temperature - - Respiratory Rate - - Oxygen Saturation - - Inhaled Oxygen Concentration - - Weight 77.1 kg (170 lb) 05/24/2023 1:05 PM EST Height - - Body Mass Index - - Plan of Treatment Upcoming Encounters Date Type Department Care Team (Late st Contact Info) Description 05/23/2024 3:00 PM EST Office Visit [facility] Hematology Oncology [address] [place] [id number] Jose E Mckeon MD [address] [place] [address] Health Maintenance Due Date Last Done Comments DTaP,Tdap,and Td Vaccines (1 - Tdap) 11/06/1959 Zoster Vaccines (1 of 2) 1990 Pneumococcal Vaccine: 65+ Years (1 of 1 - PCV) 2005 RSV Immunization Patients 60+ Years Old (1 - 1-dose 75+ series) 11/06/2015 Cholesterol Screening (Lipid Panel) 02/27/2022 Depression Screening 02/27/2022 Falls Risk Assessment 02/27/2022 Osteoporosis Screening (Bone Density Screening) 02/27/2022 Social Influencers of Health Screening 02/27/2022 Medicare Annual Wellness Visit 02/11/2023 02/11/2022 COVID-19 Vaccine ( season) 2023 02/04/2021, 06/18/2020 Influenza Vaccine (#1) 2023 2, 01/06/2021, 12/19/2019, Additional history exists HIB Vaccines Aged Out No longer eligi ble based on patient's age to complete this topic HPV Vaccines Aged Out No longer eligi ble based on patient's age to complete this topic Hepatitis A Vaccines Aged Out No long er eligible based on patient's age to complete this topic Hepatitis B Vaccines Aged Out No long er eligible based on patient's age to complete this topic IPV Vaccines Aged Out No longer eligi ble based on patient's age to complete this topic MMR Vaccines Aged Out No longer eligi ble based on patient's age to complete this topic Meningococcal ACWY Vaccine Aged Out N o longer eligible based on patient's age to complete this topic RSV Immunization Patients Under 20 months Aged Out No longer eligible based on patient's age to complete this topic Varicella Vaccines Aged Out No longer eligible based on patient's age to complete this topic Advance Directives Documents on File Type Date 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
--- OUTSIDE RECORDS SUMMARY | 2024-04-28 15:03 | XMS_ITS | Continuity of Care Document ---
Author Organization [facility] Adult Address [address] [place] [address]- Support Name Relationship Address Phone ANI PEREZ [...] Unknown U navailable Care Team Providers Care Director Of Counterintelligence Name Role Phone Mannie MUÑOZ, Vee Primary Care Physician Encounter [facility] [place] [facility] [place] [id number] Date(s): 04/05/24 - 04/12/24 [facility] [address] [place] [address]- Encounter Diagnosis Well adult exam(Discharge Diagnosis) - 04/05/24 Heart failure with reduced ejection fraction(Discharge Diagnosis) - 04/05/24 Chronic kidney disease, stage 4 (severe)(Discharge Diagnosis) - 04/05/24 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) - 04/05/24 Secondary hyperparathyroidism(Discharge Diagnosis) - 04/05/24 PAF (paroxysmal atrial fibrillation)(Discharge Diagnosis) - 04/05/24 Renal mass, right(Discharge Diagnosis) - 04/05/24 Cough(Discharge Diagnosis) - 04/05/24 Sinusitis nasal(Discharge Diagnosis) - 04/05/24 Attending Physician: Mannie MUÑOZ, Vee Encounter Type: Office Visit Allergies, Adverse Reactions, Alerts Substance Criticality Severity Reaction Reaction Severity Status lisinopril cough,chest tightness Active Dilaudid 1 Hallucinations Acti ve 1Hallucinations Immunizations Given and Recorded Vaccine Date Status Refusal Reason influenza virus vaccine, inactivated 12/24/22 Oracio rded influenza virus vaccine, inactivated 01/02/22 Give n influenza virus vaccine, inactivated 01/02/21 Give n influenza virus vaccine, inactivated 12/19/19 Oracio rded influenza virus vaccine, inactivated 1 02/03/18 Gi tobi influenza virus vaccine, inactivated 2 02/04/17 Gi tobi influenza virus vaccine, inactivated 02/04/16 Give n influenza virus vaccine, inactivated 05/06/13 Give n influenza virus vaccine, inactivated 3 01/21/07 Gi tobi [id number] 12y+ bivalent booster vax 01/28/22 Recorded SARS-CoV-2 (COVID-19) mRNA BNT-162b2 vac 02/04/21 Recorded SARS-CoV-2 (COVID-19) Ad26 vaccine 06/19/20 Record ed pneumococcal 13-valent vaccine 08/09/14 Given pneumococcal 13-valent vaccine 08/09/14 Given tetanus/diphtheria/pertussis, acel(Tdap) 02/12/14 Given Fluzone (oldterm) 4 12/26/13 Given pneumococcal 23-valent vaccine 05/06/13 Given Influenza Virus Vaccine (oldterm) 5 05/15/08 Given Pneumococcal Vaccine (oldterm) 6 10/29/05 Given 1Result Comment: [facility] [id number] 2Result Comment: [facility] [id number] 3Admin Note: VIS GIVEN 4Admin Note: [facility] VIS reviewed 5Admin Note: vis given 6Admin Note: vis given Medications Albuterol (Eqv-Ventolin HFA) 90 mcg/inh inhalation aerosol 2 puffs, Inhalation, Every 6 hours, # 8.5 Gm, 0 Refills, Maintenance, 03/11/23 9:03:00 AM EST, [facility], Partial fill upon patient request if the prescription is for a schedule II opioid drug., 2 puffs Inhalation Every 6 hours, 152, cm, 03/10/23 15:01:00 EST, Height, 74.4, kg, 12/15/21 6:29:00 EDT, Dry Weight Start Date: 03/11/23 Status: Ordered Quantity: 8.5 Unit: g Repeat number: 1 allopurinol 100 mg oral tablet 0.5, tablet, By Mouth, Daily, # 45 tablet, Refills 1, Maintenance, 03/28/24 8:44:00 PM EST, Route to Pharmacy Electronically, [facility], 157.9, cm, 12/21/23 15:16:00 EDT, Height, 72, kg, 04/15/23 22:25:00 EST, Dry Weight Start Date: 03/28/24 Status: Ordered Quantity: 45.0 Unit: tablet Repeat number: 1 atorvastatin 80 mg oral tablet 1 tablet, By Mouth, Daily at bedtime, # 90 tablet, 1 Refills, Maintenance, 10/19/23 11:08:00 AM EDT,[facility], 157.9, cm, 10/14/23 16:09:00 EDT, Height, 72, kg, 04/15/23 22:25:00 EST, Dry Weight Start Date: 10/19/23 Status: Ordered Quantity: 90.0 Unit: tablet Repeat number: 2 Augmentin 875 mg-125 mg oral tablet 1 tablet, By Mouth, Every 12 hours, for 10 days, # 20 tablet, 0 Refills, Acute 04/15/24 3:27:00 PM EST, 04/05/24 3:27:00 PM EST, Tablet, [facility], Partial fill upon patient request if the prescription is for a schedule II opioid drug., 157.9, cm, 04/05/24 14:53:00 EST, Height, 72,kg, 04/15/23 22:25:00 EST, Dry Weight Start Date: 04/05/24 Stop Date: 04/15/24 Status: Ordered Quantity: 20.0 Unit: tablet Repeat number: 1 calcitriol 0.25 mcg oral capsule 1 capsule, [...] DX URINRY INCONTINENCE R39.81, SIM 99 VENU [phone], 02/13/22 2:43:00 PM EST, Supply Start Date: 02/13/22 Status: Ordered Quantity: 180.0 Unit: each Repeat number: 12 Indication: Unspecified urinary incontinence Doculase By Mouth, Daily, 0 Refills, Maintenance, 04/28/23 9:43:00 AM EST, Partial fill upon patient request if the prescription is for a schedule II opioid drug. Start Date: 04/28/23 Status: Ordered Repeat number: 1 ergocalciferol 43478 iu oral capsule 50,000 International_Units, 1, capsule, By Mouth, Every week, Take 1 capsule of the 50,000 weekly for the next 8 weeks followed by [id number] 2000 international units of vitamin D daily, # 8 capsule, Refills 0, Tot. Refills 0, Maintenance, 07/31/23 4:09:00 PM EDT, Route to Pharmacy Electronically, [facility], Partial fill upon patient request if the prescription is for a schedule II opioid drug., 160, cm, 07/29/23 14:25:00 EDT, Height, 72, kg, 04/15/23 22:25:00 EST, Dry Weight Start Date: 07/31/23 Stop Date: 09/25/23 Status: Ordered Quantity: 8.0 Unit: capsule Repeat number: 1 Flonase Allergy Relief 50 mcg/inh nasal spray 2 sprays = 100 mcg, Nares, Both, Daily, shake well before using, # 16 Gm, 1 Refills, Maintenance, 04/05/24 3:29:00 PM EST, [place], [facility], Partial fill upon patient request if theprescription is for a schedule II opioid drug., 157.9, cm, 04/05/24 14:53:00 EST, Height, 72, kg, 04/15/23 22:25:00 EST, Dry Weight Start Date: 04/05/24 Status: Ordered Quantity: 16.0 Unit: g Repeat number: 2 Freestyle Lite Lancets See Instructions, # 100 [...] DX URINRY INCONTINENCE R39.81, SIM 99 VENU [phone], 02/13/22 2:45:00 PM EST, Supply Start Date: 02/13/22 Status: Ordered Quantity: 300.0 Unit: each Repeat number: 12 Liquid Calcium with Vitamin D 1000 mg-10 mcg/30 mL oral liquid See Instructions, TAKE 30MLS (2 TABLESPOONS) BY MOUTH ONCE DAILY, # 2,838 Unknown, 0 Refills, Maintenance, 09/21/23 12:03:00 PM EDT, [facility], 94, TAKE 30MLS (2 TABLESPOONS) [...] 8:38:00 AM EDT, Route to Pharmacy Electronically, [facility], Partialfill upon patient request if [...] 11 Refills, Maintenance, 11/30/23 7:46:00 AM EDT, [facility], 157.9, cm, 10/14/23 16:09:00 EDT, [...] EST, Route to Pharmacy Electronically, [facility], Partial fill upon patient request [...] Dr Dalal/ [facility] Diagnosis Diagnosis Type Effective Dates Health Status Clinical Service Informant Well adult exam Discharge Diagnosis 04/05/24 Heart failure with reduced ejection fraction Discharge Diagnosis 04/05/24 Chronic kidney disease, stage 4 (severe) Discharge Diagnosis 04/05/24 Type 2 diabetes mellitus with chronic kidney disease Discharge Diagnosis 04/05/24 Secondary hyperparathyroidism Discharge Diagnosis 04/05/24 PAF (paroxysmal atrial fibrillation) Discharge Diagnosis 04/05/24 Renal mass, right Discharge Diagnosis 04/05/24 Cough Discharge Diagnosis 04/05/24 Sinusitis nasal Discharge Diagnosis 04/05/24 Vital Signs Most recent to oldest [Reference Range]: 1 Height 157.9 cm (04/05/24 2:53 PM) Weight 77.3 kg (04/05/24 2:53 PM) Oxygen Saturation [94-100 %] 97 % (04/05/24 2:53 PM) Pulse Rate [55-90 bpm] 73 bpm (04/05/24 2:53 PM) Body Mass Index [18.5-24.99 kg/m2] 31 kg /m2 *>HHI* (04/05/24 2:53 PM) Blood Pressure [90-138/55-84 mm Hg] 121/ 67mm Hg (04/05/24 2:53 PM) Mode of Delivery (Oxygen) Room air (04/05/24 2:53 PM) Blood pressure sites Arm, left (04/05/24 2:53 PM) Social History Social History Type Response Smoking Status Former smoker; Tobac co user in household: No; Other: start age 40 quit 2013; entered on: 01/07/18 Sex Sex Representation Female (finding) Note * Patito Granda: PERFORM Event Display: Patient Education/Instruction Authored Date: [id number] Ambulatory Adult Visit Summary [facility] [address] [place] [address] Name: BEVERLY TORRES : 1940?? Visit: 04/05/2024 14:49?? Ambulatory Visit Instructions ?? Your Care Team Primary Care Provider Vee Chand MD? This Visit Provider Vee Chand MD Your Diagnosis Well adult exam Heart failure with reduced ejection fraction Chronic kidney disease, stage 4 (severe) Type 2 diabetes mellitus with chronic kidney disease Secondary hyperparathyroidism PAF (paroxysmal atrial fibrillation) Renal mass, right Cough Vitals Signs Pulse Rate: 73 bpm Height: 157.9 cm Systolic Blood Pressure: 121 mm Hg Weight: 77.3 kg Diastolic Blood Pressure: 67 mm Hg Body Mass Index:??31 kg/m2??Critical Oxygen Saturation: 97 % Body surface area: 1.84 What to do next Scheduled Follow-Up Appointments Wednesday 9:15 AM EST ?? With: Farshad Pak MD Where: [facility] [address] [place] [address]- Status: Pending Wednesday 8:20 AM EST ?? With: Natty Aguilar MD Where: [facility] [address] [place] [address]- Status: Pending Wednesday 7:40 AM EST ?? Where: [facility] [address] [place] [address]- Status: Pending Wednesday 4:00 PM EST ?? Where: [facility] [address], [address] [place] [address]- Status: Pending Follow-Up Appointments Follow Up with??Vee Chand MD When:??05/02/2025 02:50 PM EST Why: PHY Where: [address] [place] [address]- Follow Up with??Vee Chand MD When:??10/03/2024 03:30 PM EDT Why: RET Where: [address] [place] [address]- Future Orders XR Chest 2 Views Frontal and Lat, Routine, Reason for Exam: Cough, Patient Does Not Need Assistance, Once, *Est. 04/05/24, Order for Today Complete Urinalysis/Reflex Culture (Urinalysis Complete/Reflex Culture) - Urine Clean Catch, Once, *Est. 04/14/23, Single or Recurring Future Order?? C. difficile Rapid Toxin Assay - Stool, Once, *Est. 04/14/23 due within 3 days, Within 3 Days?? GI Profile, Stool, PCR - Stool, Once, *Est. 04/14/23 due within 3 days, Within 3 Days?? Renal Panel - Routine, Once, 07/07/23 12:07:00 EDT, Future Order, [facility], Blood?? Vitamin D 25 Hydroxy Level - Routine, Once, 07/07/23 12:07:00 EDT, Future Order, [facility], Blood?? PTH Intact - Routine, Once, 07/07/23 12:07:00 EDT, Future Order, [facility], Blood?? Basic Metabolic Panel - Routine, Once, 04/05/24 15:27:00 EST, Order for Today, [facility], Blood?? Medications The list below reflects the information in our records and provided by you today along with any changes made during this visit. Please continue your medications until treatment is completed or stopped by your provider. If this is different from the information you have or there are other questions,please contact the prescribing provider. What How Much When Why Instructions New Amoxicillin-Clavulanate (Augmentin 875 mg-125 mg oral tablet) 1 tab(s) Oral Every 12 hours Duration: 10 Days Pickup at [facility] Changed Fluticasone Nasal (Flonase Allergy Relief 50 mcg/ inh nasal spray) 2 spray(s) Nares, Both Daily shake well before using ?? Pickup at [facility] Unchanged Albuterol (Albuterol (Eqv-Ventolin HFA) 90 mcg/ inh inhalation aerosol) 2 puff(s) Inhalation Every 6 hours Unchanged Allopurinol (allopurinol 100 mg oral tablet) 0.5 tab(s) Oral Daily Unchanged Atorvastatin (atorvastatin 80 mg oral tablet) 1 tab(s) Oral Daily at Bedtime Unchanged Calcitriol (calcitriol 0.25 mcg oral capsule) 1 capsule Oral Daily Unchanged Calcium And Vitamin D Combination (Liquid Calcium with Vitamin D 1000 mg-10 mcg/ 30 mL oral liquid) See instructions TAKE 30MLS (2 TABLESPOONS) BY MOUTH ONCE DAILY ?? Unchanged Cyanocobalamin (Vitamin B12 1000 mcg oral tablet) 1 tab(s) Oral Daily Unchanged Docusate (Doculase) Oral Daily Unchanged Durable Medical Equipment (Freestyle Lite Lancets) See instructions Type 2 diabetes mellitus use to check glucose once daily for dx DM type 2 ?? Unchanged Durable Medical Equipment (Freestyle Lite Monitor) See instructions Type 2 diabetes mellitus use as directed to check glucose daily for dx DM type 2 ?? Unchanged Durable Medical Equipment (Freestyle Lite Test Strips) See instructions Type 2 diabetes mellitus use to check glucose once daily for dx DM type 2 ?? Unchanged Ergocalciferol (ergocalciferol 49707 iu oral capsule) 1 capsule Oral Every week Duration: 8 week(s) Take 1 capsule of the 50,000 weekly for the next 8 weeks followed by [id number] 2000 international units of vitamin D daily ?? Unchanged Loratadine (loratadine 10 mg oral tablet) 1 tab(s) Oral Daily as needed for allergies Duration: 30 Days Unchanged Melatonin 2 TABLETS Oral Daily at Bedtime Unchanged Metoprolol (Metoprolol Succinate ER 100 mg oral tablet, extended release) 1 tab(s) Oral Daily Unchanged mirabegron (Myrbetriq 50 mg oral tablet, extended release) See instructions TAKE 1 TABLET DAILY (NEED APPOINTMENT FOR FURTHER REFILLS) ?? Unchanged Miscellaneous Rx (Depends and pads) See instructions Urinary incontinence ADULT EXTRA LARGE, USE 6X QD, DX URINRY INCONTINENCE R39.81, SIM 99 VENU [phone] ?? Unchanged Miscellaneous Rx (INCONTINENCE PADS) See instructions ADULT EXTRA LARGE, USE 10X QD, DX URINRY INCONTINENCE R39.81, SIM 99 VENU [phone] ?? Unchanged Nitroglycerin (nitroglycerin 0.4 mg sublingual tablet) 1 tab(s) Sublingual Every 5 minutes as needed for as needed for chest pain not to exceed 3 doses/ 15 min--if pain persists, seek medical attention ?? Unchanged Pantoprazole (pantoprazole 40 mg oral delayed release tablet) 1 tab(s) Oral Daily Unchanged Spironolactone (spironolactone 25 mg oral tablet) 0.5 tab(s) Oral Daily Unchanged torsemide (torsemide 20 mg oral tablet) See instructions take ??20 mgs tablet twice ??daily x 4 days ??wed - - alternating with ??two 20mgs tablets??in am and 1 tablet in pm x ??3 days Wednesday - wednesday ??call office if wts > 175 lbs ?? Pharmacy Information [facility]: [address], [place] [id number] [phone] Test Performed Below is a partial list of the tests performed during your Visit. You may have had other tests and procedures not included in this list. Please discuss all test results with your provider. Basic Metabolic Panel?-- Results Pending -- POC HBA1C ([facility]) Lab Test Results Below is a partial list of the most recent Laboratory test results done during your Visit. You may have had other tests and procedures not included in this list. Please discuss all test results with your provider. Test Name Test Result Date/Time POC HBA1C ([facility]) 5.6 % 04/05/2024 15:06 EST Point of Care Results POC HgA1C Results: 5.6 % (04/05/24) Medications and Immunizations Administered Medications Given During Visit No medications given during this visit.?? Allergies (NKA means No Known Allergies) Dilaudid??(Hallucinations) lisinopril??(cough,chest tightness) Education Materials Below is the list of Educational Leaflet Providered with your Visit summary. [employer] Patient Education - Health Screening Guidelines, Women Ages 65 and Older?? Common Emergency Awareness Tips IS IT A STROKE? Act FAST and Check for these signs: FACE Does the face look uneven? ARM Does one arm drift down? SPEECH Does their speech sound strange? TIME Call at any sign of stroke ?? Heart Attack Signs Chest discomfort: Most heart attacks involve discomfort in the center of the chest and lasts more than a few minutes, or goes away and comes back. It can feel like uncomfortable pressure, squeezing, fullness or pain. Discomfort in upper body: Symptoms can include pain or discomfort in one or both arms, back, neck, jaw or stomach. Shortness of breath: With or without discomfort. Other signs: Breaking out in a cold sweat, nausea, or lightheaded. Remember, MINUTES DO MATTER. If you experience any of these heart attack warning signs, call to get immediate medical attention! ?? Smoking can increase your chances of developing chronic health problems and can cause harmful effects to other family members in your house. If you smoke, you are strongly encouraged to quit. Please call [facility] at [phone] or [phone] ([phone]) or log in to [email or web address] for referrals to smoking cessation programs. ?? The National Suicide Prevention Hotline is available 12/10 if you or someone you know needs to find a reason to keep living. By calling 4-753-605-Justinmind (1847) you'll be connected to a skilled, trained counselor at a crisis center in your area. [facility] [employer] Portal You can view and manage your care through the patient portal or by using a health care theresa of your choosing. [employer] is a website that allows you to securely view your medical information including your hospital discharge summary, office visit summaries, medications and follow-up visits. You can also request appointments, renew medications, and request access to your medical information using a health care theresa of your choosing, or just ask a question. You can enroll at [email or web address] or register during your next office visit. [facility], in keeping with [facility] guidance, no longer requires face masks for staff, patientsor visitors in most situations. Similiar to time spent indoors at other locations, there is the chance that you were exposed to repiratory viruses during your time with us (such as flu or COVID-19). If you develop symptoms concerning for a viral respiratory infection, please seek testing (and treatment if indicated) from your medical provider or home test kit. ?? Disclaimer: The information provided is of a general nature and is intended to be used in conjunction with the recommendations and advice of your health care practitioner. Every effort has been made to ensure that the information provided is accurate and complete at the time it is provided to you however, as your needs change, or, as new information becomes available, different or additional instructions may be required. ?? If you have questions, please consult with your primary care provider or pharmacist, as appropriate. This information is not intended to serve as substitution for assessment and evaluation by a qualified health care provider. If you do not have a primary care provider, you may find a [facility] provider by calling [facility] at [phone]. * Vee Chand MD: PERFORM Event Display: Patient Education Leaflets Authored Date: [id number] Health Screening Guidelines, Women Ages 65 and Older ?? [address] Health Screening Guidelines, Women Ages 65 and Older Screening tests and health counseling are a jackson part of managing your health. A screening test is done to find disorders or diseases in people who don't have any symptoms. Screening tests are not used to diagnose. They are used to find out if more testing is needed. The goal may be to find a disease early so it can be treated with more success. Or the goal may be to find a disease early so you can make lifestyle changes. You may need regular checkups to help reduce your risk of disease. Below are guidelines for women ages 65 and older. Talk with your healthcare provider. Based on yourhealth history and risk factors, your provider may change the screening advice. Make sure you???re up-to-date on what you need. Screening Who needs it How often Type 2 diabetes or prediabetes Women in this age group up to age 70 who are overweight or have obesity Talk with your healthcare provider about how often they recommend screening. Type 2 diabetes All women with prediabetes Every 1 to 2 years Unhealthy alcohol use All women in this age group At routine exams Blood pressure All women in this age group Once a year if your blood pressure is normal. Normal blood pressure is less than 120/80 mm Hg. If your blood pressure is higher than this, follow the advice of your healthcare provider. Breast cancer All women of average risk. Expert groups vary on their advice. Talk with your provider about your specific situation. A mammogram should be done every 1 or 2 years. Talk with your provider about your risk factors. Askhow often you need the test. Ask what age you can stop. The U.S. Preventive Services Task Force advises a mammogram every 2 years through age 74. The [place] [employer] advises screening every 1to 2 years for women 55 and older. They advise screening to continue for as long as a woman is healthy and is expected to live 10 more years or longer. All women should know how their breasts normally look and feel. They should know the benefits and risks of breast cancer screening with mammograms. Cervical cancer Only women who have not been screened regularly or have had abnormal screening results before age 65 Talk with your healthcare provider if screening is needed. Chlamydia Women at higher risk for infection At routine exams. Talk with your healthcare provider. Colorectal cancer All women at average risk in this age group through age 75. For women ages 76 to 85, ask your healthcare provider if you need to keep screening. For women older than 85, screening is not advised Talk with your healthcare provider about which test below is right for you: ??? Colonoscopy every 10 years ??? Flexible sigmoidoscopy every 5 years (or every 10 years with yearly fecal immunochemical test (FIT) stool test) ??? CT colonography (virtual colonoscopy) every 5 years ??? Yearly fecal occult blood test ??? Yearly FIT ??? Stool DNA test every 3 years If you have a test that is not a colonoscopy and have an abnormal test result, you will need a colonoscopy. You may need to be screened more or less often. This is based on personal or family health history.Talk with your healthcare provider. Depression All women in this age group At routine exams Gonorrhea Sexually active women at higher risk for infection At yearly routine exams. Talk with your healthcare provider. Hepatitis C Test 1 time for women through age 79. At routine exams High cholesterol or triglycerides All women in this age group who are at risk for coronary artery disease Every year. Talk with your healthcare provider about your risk. HIV Women at higher risk for infection At routine exams. Talk with your healthcare provider. Lung cancer Women ages 50 to 80 who are in fairly good health, are at higher risk for lung cancer, and who: ??? Smoke or have quit smoking and ??? Have a 20-pack per year smoking history (1 pack a day for 20years or 2 packs a day for 10 years) Expert groups vary in their advice. Talk with your provider. Yearly lung cancer screening with a low dose CT scan (LDCT). Talk with your healthcare provider about your risk factors. Obesity All women in this age group At yearly routine exams Osteoporosis All women in this age group Routinely done every 2 years. Repeat as advised by your healthcare provider. Syphilis Women at higher risk for infection At routine exams. Talk with your healthcare provider. Thyroid-Stimulating Hormone (TSH) Women in this age group with symptoms of thyroid dysfunction Talk with your healthcare provider Tuberculosis Women at higher risk for infection Talk with your healthcare provider Vision All women in this age group Every 1 to 2 years. If you have a chronic health condition, ask your eye care provider if you need exams more often. Counseling Who needs it How often Diet and exercise Women who are overweight or obese When diagnosed, and then at routine exams Fall prevention (exercise and vitamin D supplements) All women in this age group At routine exams Sexually transmitted infection (STI) prevention Women at higher risk for infection At routine exams. Talk with your healthcare provider. Use of tobacco and the health effects it can cause All women in this age group Every exam Last Reviewed Date: 2023 ?? 1964-4402 The [employer]. All rights reserved. This information is not intended as a substitute for professional medical care. Always follow your healthcare professional's instructions. ?? Patient Care team information Care Team Personnel Name: Alejo Cadet MD Position: [facility] Physician - Gastroenterology Member Role: Lifetime Consulting Physician Address: [address] [place] [address], [address] [facility] [place] [address]- [place] [employer]: Name: Rafita Edward MD Position: [facility] Renal MD Member Role: Lifetime Consulting Physician Address: [address] [place] [address] [address] [facility] [address]- [place] [employer]: Name: Prashanth Rose RN Position: [facility] RN Member Role: Primary Care Nurse Name: Dorothea Wang RN Position: [facility] RN Member Role: Primary Care Nurse Name: Ledy Forbes RN Position: [facility] SN RN Member Role: Primary Care Nurse Name: Kavita Pagan RN Position: [facility] Onco RN Member Role: Primary Care Nurse Name: Prashanth Carmona RN Position: [facility] RN Member Role: Primary Care Nurse Name: Jaspreet Menchaca MD Position: [facility] Renal MD Member Role: Lifetime Consulting Physician Address: [address] [place] [address] [address] [facility] [address]- [place] [employer]: Name: Maryam Ayers RN Position: [facility] ED RN W/OE and Tasks Member Role: Primary Care Nurse Name: Maxine Diallo RN Position: [facility] AMB Nurse Member Role: Primary Care Nurse Name: Estephanie Carballo RN Position: [facility] RN Member Role: Primary Care Nurse Name: Odalys Chau RN Position: [facility] SN RN Member Role: Primary Care Nurse Name: Reji Willson RN Position: [facility] RN Member Role: Primary Care Nurse Name: Katie Holden RN Position: [facility] AMB Nurse Member Role: Primary Care Nurse Name: Evelyne Garcia RN Position: [facility] RN Member Role: Primary Care Nurse Name: Sol Nobles Position: [facility] AMB Nurse Member Role: Lifetime Consulting Physician Name: Johnna Baker RN Position: [facility] RN Member Role: Primary Care Nurse Name: Fantasma Ac RN Position: [facility] SN RN Member Role: Primary Care Nurse Name: Shanda Sharp RN Position: [facility] RN Member Role: Primary Care Nurse Name: Sabi Ruiz Position: [facility] assistant printer floor covering Member Role: Casserole Preparer Name: Vee Chand MD Position: [facility] Physician - Primary Care Member Role: PCP Address: [address] [place] [address] [address] [place] [address]- [place] Tele[employer]: Name: Ta Kolb RN Position: [facility] ED RN W/OE and Tasks Member Role: Primary Care Nurse Name: Neftaly Morley MD Position: [facility] Outreach Member Role: Lifetime Consulting Physician Address: [address] [facility] [address] [facility] [place] [address]- [place] [employer]: Name: Eva Camarena RN Position: [facility] DAMON Office Staff Member Role: Primary Care Nurse Name: Johnna Can CNM Position: [facility] Dam Operator Member Role: Primary Care Nurse Address: [address] [place] [address]- [place] Tele[employer]: Name: Brenda Brown RN Position: [facility] SN RN Member Role: Primary Care Nurse Name: David Mcwilliams MD Position: [facility] Renal MD Member Role: Lifetime Consulting Physician Address: [address] [facility] [address] [facility] [place] [address]- [place] [employer]: Name: Michelle Castillo RN Position: [facility] RN Member Role: Primary Care Nurse Name: Sabi Grady RN Position: [facility] RN Member Role: Primary Care Nurse Name: Sheryl Gaytan Position: [facility] RN Member Role: Primary Care Nurse Care Team Related Persons Name: ANI PEREZ Name: STEFFANY FUENTES Insurance Providers Guarantor name: BEVERLY TORRES [employer] Plan Information #: 1 Payer: MEDICARE PART B OUTPT Member Number: [id number] Policy Number: NA Group Number: NA Health Plan Information #: 2 Payer: FOR LIFE MCR A ONLY Member Number: [id number] Policy Number: NA Group Number: NA
--- OUTSIDE RECORDS SUMMARY | 2024-04-28 15:03 | XMS_ITS ---
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 - ICD-10-CM) ACTIVE 01/06/2021 UNILATERAL PRIMARY OSTEOARTH RITIS, LEFT KNEE (M17.12 - ICD-10-CM) RESOLVED 05/30/2020 12/02/2020 PRESENCE OF LEFT ARTIFICIAL KNEE JOINT (Z96.652 - ICD-10-CM) RESOLVED 05/30/2020 12/02/2020 UNSPECIFIED COMBINED SYSTOLI C (CONGESTIVE) AND DIASTOLIC (CONGESTIVE) HEART FAILURE (I50.40 - ICD-10-CM) ACTIVE 12/07/2019 UNILATERAL PRIMARY OSTEOARTH RITIS, LEFT KNEE (M17.12 - ICD-10-CM) ACTIVE 12/02/2020 MUSCLE WASTING AND ATROPHY, NOT ELSEWHERE CLASSIFIED, LEFT LOWER LEG (M62.562 - ICD-10-CM) RESOLVED 04/23/2020 TYPE 2 DIABETES MELLITUS WIT HOUT COMPLICATIONS (E11.9 - ICD-10-CM) ACTIVE 04/17/2020 PAROXYSMAL ATRIAL FIBRILLATION (I48.0 - ICD-10-CM) ACT MARIN 04/17/2020 MUSCLE WASTING AND ATROPHY, NOT ELSEWHERE CLASSIFIED, LEFT LOWER LEG (M62.562 - ICD-10-CM) RESOLVED 12/10/2020 LOCALIZED EDEMA (R60.0 - ICD-10-CM) RESOLVED 04/1712/02/2020 CHRONIC KIDNEY DISEASE, STAG E 3 UNSPECIFIED (N18.30 - ICD-10-CM) ACTIVE 12/21/2019 URINARY TRACT INFECTION, SIT E NOT SPECIFIED (N39.0 - ICD-10-CM) RESOLVED 12/07/2019 04/17/2020 MUSCLE WASTING AND ATROPHY, NOT ELSEWHERE CLASSIFIED, RIGHT LOWER LEG (M62.561 - ICD-10-CM) RESOLVED 12/10/2020 ACUTE ON CHRONIC DIASTOLIC ( CONGESTIVE) HEART FAILURE (I50.33 - ICD-10-CM) RESOLVED 12/07/2019 04/17/2020 DIFFICULTY IN WALKING, NOT E LSEWHERE CLASSIFIED (R26.2 - ICD-10-CM) RESOLVED 12/10/2020 01/06/2021 ACUTE KIDNEY FAILURE, UNSPECIFIED (N17.9 - ICD-10-CM) RESOLVED 12/07/2019 04/17/2020 OTHER INTERVERTEBRAL DISC DE GENERATION, LUMBAR REGION (M51.36 - ICD-10-CM) ACTIVE 04/17/2020 MUSCLE WASTING AND ATROPHY, NOT ELSEWHERE CLASSIFIED, RIGHT THIGH (M62.551 - ICD-10-CM) RESOLVED 12/10/20202020 GASTRO-ESOPHAGEAL REFLUX DIS EASE WITHOUT ESOPHAGITIS (K21.9 - ICD-10-CM) ACTIVE 05/30/2020 PRESENCE OF AUTOMATIC (IMPLA NTABLE) CARDIAC DEFIBRILLATOR (Z95.810 - ICD-10-CM) ACTIVE 04/17/2020 UNSPECIFIED OSTEOARTHRITIS, UNSPECIFIED SITE (M19.90 - ICD-10-CM) RESOLVED 04/17/2020 12/02/2020 OBESITY, UNSPECIFIED (E66.9 - ICD-10-CM) RESOLVED 04/17/2020 12/02/2020 OLD MYOCARDIAL INFARCTION (I25.2 - ICD-10-CM) ACTIVE 12/07/2019 ISCHEMIC CARDIOMYOPATHY (I25.5 - ICD-10-CM) ACTIVE 12/07/2019 SLEEP APNEA, UNSPECIFIED (G47.30 - ICD-10-CM) ACTIVE 12/07/2019 CHRONIC KIDNEY DISEASE, STAG E 3 (MODERATE) (N18.3 - ICD-10-CM) RESOLVED 12/07/2019 12/21/2019 OTHER MALAISE (R53.81 - ICD-10-CM) RESOLVED 201904/17/2020 OTHER SPECIFIED DISORDERS OF BLADDER (N32.89 - ICD-10-CM) RESOLVED 12/07/2019 04/17/2020 PERSONAL HISTORY OF OTHER DI SEASES OF THE DIGESTIVE SYSTEM (Z87.19 - ICD-10-CM) RESOLVED 12/07/2019 04/17/2020 PAIN IN LEFT KNEE (M25.562 - ICD-10-CM) RESOLVED 0 12/07/2019 04/17/2020 DYSPHAGIA, OROPHARYNGEAL PHASE (R13.12 - ICD-10-CM) RE SOLVED 12/07/2019 04/17/2020 DIFFICULTY IN WALKING, NOT E LSEWHERE CLASSIFIED (R26.2 - ICD-10-CM) RESOLVED 12/07/2019 04/17/2020 UNSTEADINESS ON FEET (R26.81 - ICD-10-CM) RESOLVED 12/07/2019 04/17/2020 GOUT, UNSPECIFIED (M10.9 - ICD-10-CM) ACTIVE ESSENTIAL (PRIMARY) HYPERTENSION (I10 - ICD-10-CM) ACT MARIN 12/07/2019 HYPERLIPIDEMIA, UNSPECIFIED (E78.5 - ICD-10-CM) ACTIVE 12/07/2019 ANEMIA, UNSPECIFIED (D64.9 - ICD-10-CM) ACTIVE 0 12/07/2019 ATHEROSCLEROTIC HEART DISEAS E OF [place] CORONARY ARTERY WITHOUT ANGINA PECTORIS (I25.10 - ICD-10-CM) ACTIVE 12/07/19 20 OTHER SPECIFIED DISORDERS OF KIDNEY AND URETER (N28.89 - ICD-10-CM) RESOLVED 12/07/2019 12/02/2020 MALIGNANT NEOPLASM OF UNSPEC IFIED KIDNEY, EXCEPT RENAL PELVIS (C64.9 - ICD-10-CM) RESOLVED 12/07/2019 01/06/2021 AFTERCARE FOLLOWING JOINT RE PLACEMENT SURGERY (Z47.1 - ICD-10-CM) ACTIVE 12/10/2020 AFTERCARE FOLLOWING JOINT RE PLACEMENT SURGERY (Z47.1 - ICD-10-CM) RESOLVED 05/30/2020 12/02/2020 UNSTEADINESS ON FEET (R26.81 - ICD-10-CM) RESOLVED 05/30/2020 12/02/2020 ENCOUNTER FOR OTHER ORTHOPED IC AFTERCARE (Z47.89 - ICD-10-CM) RESOLVED 05/30/2020 12/02/2020 DYSPHAGIA, OROPHARYNGEAL PHASE (R13.12 - ICD-10-CM) RE SOLVED 05/30/2020 12/02/2020 PERSONAL HISTORY OF COLONIC POLYPS (Z86.010 - ICD-10-CM) RESOLVED 04/17/2020 12/02/2020 OTHER REDUCED MOBILITY (Z74.09 - ICD-10-CM) RESOLVED 04/17/2020 12/02/2020 OTHER ENCEPHALOPATHY (G93.49 - ICD-10-CM) RESOLVED 04/17/2020 12/02/2020 Results * XRAY CHEST 2 VIEW Performed by: [employer] Component Value Range Date XRAY CHEST 2 VIEW XRAY CHEST 2 VIEW Co mparison: Comparison to the prior study 04/12/2019See NoteFINDINGS: AP and lateral erect examination compared to the prior study demonstrates no infiltrates. The heart is not enlarged. Normal hilar and mediastinal structures. Vascularity is normal. Elevated left hemidiaphragm. Permanent pacemaker.CONCLUSION: No change. No active disease. No evidence of pneumonia or congestive heart failure.ELECTRONICALLY SIGNED BY DERRICK ARELLANO M.D. 01/10/2021 3:41:45 PM EDT.Reason for Study: R05.9 COUGH, UNSPECIFIEDPrincipal Result Head Of Conservation: DERRICK ARELLANO ([id number])Finance Accounting Internship: JIMMY SALEH (DSEXTON)Entry Specialist Finance Accounting Internship: MARK 01/10/2021 03:42 pm EDT * WRIST AP AND LAT Performed by: [employer] Component Value Range Date WRIST AP AND LAT WRIST AP and LAT, LE FTFINDINGS: No acute fracture or dislocation. The osseous structures appear intact. Joint spaces are narrowed. Soft tissues are unremarkable.CONCLUSION: No acute findings. Degenerative changes. Consider a repeat study if symptoms continue to persist or progress.ELECTRONICALLY SIGNED BY BRIT NAZARIO M.D. 12/20/2020 8:41:17 AM EDT.Reason for Study: R22.32 LOCALIZED SWELLING, MASS AND LUMP, LEFT UPPER LIMBPrincipal Result Head Of Conservation: BRIT NAZARIO ([id number])Finance Accounting Internship: ADRIANA TREVINO (DCONDON)Entry Specialist Finance Accounting Internship: MARK 12/20/2020 08:41 am EDT Encounters Encounter Performer Performer Role Encounter Diagnoses Location Date Discharge - [facility] - Private home/apt. with home health services [facility] 0 06:03 pm EDT - 0 04:46 pm EDT Discharge - Discharged / Transferred to home under care of organized home health service organization - [facility] - Private home/apt. with home health services [facility] 1 06:26 pm EST - 1 05:41 pm EST Discharge - Discharged to home or self care - Home - Private home/apt. with no home health services [facility] 1 02:30 pm EST - 1 02:06 pm EDT Discharge - Discharged / Transferred to another [facility] 1 04:41 pm EDT - 1 09:45 am EDT Discharge - Discharged / Transferred to another hospital - [facility] - [facility] 1 04:42 pm EDT - 1 04:24 pm EDT Discharge - Discharged to home or self care - Home - [facility] 1 04:43 pm EDT - 1 03:12 pm EDT Immunizations Vaccine Date Influenza 01/05/2021 12:00 am EDT Influenza 12/21/2019 12:00 am EDT Influenza 12/19/2019 12:00 am EDT TB 2 Step Mantoux Skin Test 06/08/2020 0 5:00 pm EDT TB 2 Step [place]oux Skin Test 05/30/2020 1 0:00 pm EST TB 2 Step [place]oux Skin Test 12/13/2019 0 4:40 pm EDT TB 2 Step [place]oux Skin Test 12/08/2019 0 7:00 pm EDT PCV13 (Pneumococcal Conjugate)Vaccine 12:00 am EDT PPSV23 (Previous Pneumococcal Polysaccha ride)Vaccine 05/06/2013 12:00 am EST Tdap (Tetanus, Diphtheria, Pertussis) 12:00 am EST SARS-COV-2 (COVID-19) 06/18/2020 12:00 a m EDT Social History
--- OUTSIDE RECORDS SUMMARY | 2024-04-28 15:03 | XMS_ITS | Clinical Summary ---
Author Organization [facility] Address [address] [place] [address] Phone Care Team Providers Care [employer] Director Name Role Phone Vee Chand MD Primary Care Provider Allergies Active Allergy Reactions Criticality Noted Date Comments Hydromorphone 12/02/2020 Hydromorphone Hcl 12/02/2020 Other reaction(s): Hallucinations Hallucinations Lisinopril Other (see comments) 08/25/2019 Medications acetaminophen (TYLENOL) 325 MG tablet Take 650 mg by mouth every 6 (six) hours if needed Active allopurinol (ZYLOPRIM) 100 MG tablet Take 0.5 tablets by mouth 1 (one) time each day Active atorvastatin (LIPITOR) 80 MG tablet Take 1 tablet by mouth 1 (one) time each day Active DOK 100 MG capsule Take 1 capsule by mouth 2 (two) times a day 1 Active Mirabegron ER (Myrbetriq) 50 MG tablet sustained-relea se 24 hour Take 1 tablet by mouth 1 (one) time each day Active nitroglycerin (NITROSTAT) 0.[address] 1 tablet under the tongue Active pantoprazole (PROTONIX) 40 MG EC tablet Take 1 tablet by mouth 1 (one) time each day Active Melatonin 10 MG tablet Take 1 tablet by mouth every night Active metoprolol succinate XL (TOPROL-XL) 100 MG 24 hr tablet Take 100 mg by mouth 1 (one) time each day 1 Active cyanocobalamin (VITAMIN B-12) 1000 MCG tablet Take 1,000 mcg by mouth 1 (one) time each day Active torsemide (DEMADEX) 20 MG tablet Take 20 mg by mouth in the morning and 20 mg in the evening. Wed - 40 mgx 2 Wednesday- 80 mg x 2. Active calcitriol (ROCALTROL) 0.25 MCG capsule Take 1 capsule (0.25 mcg total) by mouth 3 (three) times a week 12 capsule 5 3 Active Additional Information Patient taking differently:0.25 mcg OralDaily, Reported on 12/16/2022 spironolactone (ALDACTONE) 25 MG tablet Take 25 mg by mouth Wednesday - Wednesday 50 mg Wed - 25 mg 3 Active Active Problems Problem Noted Date Diagnosed Date Stage 3b chronic kidney disease 07/01/2022 Patient encounter status 02/25/2022 Chronic kidney disease stage 4 12/01/2021 Overview (12/01/2021): Per chart review meets GFR criteria Secondary hyperparathyroidism of renal origin Hypertension 08/06/2021 Benign hypertensive renal disease 08/07/2020 Stage 3a chronic kidney disease 08/07/2020 [id number] renal failure 12/16/2019 Acute urinary tract infection 12/08/2019 Essential (primary) hypertension 12/07/2019 Hyperkalemia 12/07/2019 Renal mass 04/04/2019 Resolved Problems Problem Noted Date Diagnosed Date Resolved Date Carpal tunnel syndrome 08/06/202111/28 Disorder of implantable defibrillator 08/06/2021 11/28/2021 Female stress incontinence 08/06/2021 0 11/28/2021 Finding of functional perfor chalo and activity 08/06/2021 11/28/2021 H/O: gout 08/06/2021 11/28/2021 Osteoporosis 08/06/2021 11/28/2021 Overview (08/06/2021): dexascan 02/22 Polyp of colon 08/06/2021 11/28/2021 Overview (08/06/2021): colonoscopy 10/23, tubular adenoma, repeat Q5 yr Uterovaginal prolapse 08/06/20212021 Other lack of coordination 01/06/2021 0 08/06/2021 Degenerative joint disease i nvolving multiple joints 06/08/2020 08/06/2021 Constipation 06/03/2020 08/06/2021 Total knee replacement 05/31/202008/06 Aftercare following joint replacement surgery 05/31/1908/07/2020 Dysphagia, oropharyngeal phase 05/30/2020 08/07/2020 Encounter for other orthopedic aftercare 05/30/2020 08/07/2020 Gastro-esophageal reflux dis ease without esophagitis 05/30/2020 08/07/2020 Unilateral primary osteoarth ritis of left knee 05/30/2020 08/07/2020 Pain in left knee 05/30/2020 08/07/2020 Presence of left artificial knee joint 05/30/2020 08/07/2020 Unsteadiness on feet 05/30/2020 021 Overactive bladder 04/25/2020 Localized edema 04/17/2020 08/07/2020 Muscle wasting and atrophy, not elsewhere classified, lower leg 04/17/2020 08/07/2020 Osteoarthritis 04/17/2020 08/07/2020 Obesity 04/17/2020 08/07/2020 Other encephalopathy 04/17/2020 021 Other intervertebral disc de generation, lumbosacral region, NOS 04/17/2020 08/07/2020 Overview (12/21/2023): Replacing diagnoses that were inactivated after the 12/21/23 Regulatory Import Other reduced mobility 04/17/202008/07 Paroxysmal atrial fibrillation 04/17/2020 08/07/2020 Personal history of colonic polyps 04/17/2020 08/07/2020 Presence of automatic implan table cardiac defibrillator 04/17/2020 08/07/2020 Type 2 diabetes mellitus without complication 04/17/1908/07/2020 Anemia 12/07/2019 08/07/2020 Atherosclerotic heart diseas e of [place] coronary artery without angina pectoris 12/07/2019 08/07/2020 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 12/07/2019 08/07/2020 Gout 12/07/2019 08/07/2020 Hyperlipidemia 12/07/2019 08/07/2020 Ischemic cardiomyopathy 12/07/201907/20 Malignant neoplasm of unspec ified kidney, except renal pelvis 12/07/2019 08/07/2020 Neuromuscular dysfunction of bladder 12/07/2019 08/07/2020 Old myocardial infarction 12/07/2019 Other specified disorders of kidney and ureter 12/07/2019 08/07/2020 Sleep apnea 12/07/2019 08/07/2020 Asthenia 04/04/2019 08/06/2021 Cholecystitis 04/04/2019 08/06/2021 Coronary arteriosclerosis 04/04/2019 Disorder of urinary bladder 04/04/2019 08/06/2021 Deep venous thrombosis 04/04/201908/06 Immunizations Name Administration Dates Next Due Influenza TIV (IM) 12/21/2019,12/19/2019 Influenza Whole 12/26/2013,05/15/2008 Influenza, Quadrivalent, Wit h Preservative 12/19/2019,12/15/2019 Influenza, Unspecified 01/02/2021,2019,02/03/2018,02/04,02/04/2016,05/06/2013,01/21/2007 Rocael SARS-COV-2 06/19/2020,06/18/2020 Moderna SARS-COV-2 06/18/2020 Pfizer SARS-COV-2 02/04/2021,06/18/2020 Pneumococcal Conjugate 13-Valent 08/09/2014,03/2 03/2014 Pneumococcal Polysaccharide 06/20/2013,0 05/06/2013,05/06/2013,10/29 Tdap 02/12/2014,02/12/2014 Family History Medical History Relation Comments Cancer Father Hypertension Mother Relation Status Comments Father Mother Social History Tobacco Use Types Packs/Day Years Used Date Smoking Tobacco: Former Cigarettes Q uit: 03/22/2013 Smokeless Tobacco: Never Tobacco Cessation:Counseling Given: Not Answered Alcohol Use Standard Drinks/Week Comments Yes 0 (1 standard drink = 0.6 oz pure alcohol) Alcoholic Drinks/day: Occasional social drink Comments Unknown Sex and Gender Information Value Date Recorded Sex Assigned at Not on file Legal Sex Female 5:09 PM EST Gender Identity Not on file Sexual Orientation Not on file Last Filed Vital Signs Vital Sign Reading Time Taken Comments Blood Pressure 125/61 12/16/2022 4:35 PM EDT Pulse 77 12/16/2022 4:35 PM EDT Temperature - - Respiratory Rate - - Oxygen Saturation 98% 12/16/2022 4:35 PM EDT Inhaled Oxygen Concentration - - Weight 78.1 kg (172 lb 3.2 oz) 12/16/2022 4:35 P M EDT Height 167.6 cm (5' 6 ) 02/28/2020 12:00 PM EST Body Mass Index 27.79 02/28/2020 12:00 PM EST Plan of Treatment Health Maintenance Due Date Last Done Comments Influenza Vaccine (#1) 2023 , 12/21/2019, 12/19/2019, Additional history exists Pneumococcal Vaccine: 65+ Years Completed 08/09/2014, 06/09/2014, 06/20/2013, Additional history exists Hepatitis B Vaccine Aged Out No longe r eligible based on patient's age to complete this topic Insurance MEDICARE [facility] MEDICARE [facility] Care Teams [employer] Director Relationship Specialty Start Date End Date Vee Chand MD [address] [place] [address] [address] [place] [address] PCP - General Internal Medicine 08/07/20
--- OUTSIDE RECORDS SUMMARY | 2024-04-28 15:03 | XMS_ITS | Data Portability ---
Author Organization [facility], Main Office Address [address] [place] [address] Care Team Providers Care Wildlife Refuge Manager Name Role Phone RORY TARANGO 1ST FLOOR OTHER NEIL COYLE Primary Care Provider Assessment No assessment recorded. Plan of Treatment [...] Address Organization Details Recorded Time Hyperlipid emia 96339177 Active 2019 LORNA SAUCEDO NP [address] [facility], [address], [place], [address] , [facility] 0 08:12:22 Acute urinary tract infection 631787175 Active 2019 LORNA SAUCEDO NP [address] [facility], [address], [place], [address] , [facility] 0 08:12:35 Gout 74143514 Active 2019 LORNA SAUCEDO NP [address] [facility], [address], [place], [address] , [facility] 0 08:21:44 Acute-on-c hronic renal failure 354164714 Active 2019 Inge Rodríguez MD [address] [facility], [address], [place], [address] , [facility] 0 00:35:34 Overactive urinary bladder 107418225 Active 2020 Inge Rodríguez MD [address] [facility], [address], [place], [address] , [facility] 1 00:36:36 Total knee replacemen t Active 2020 LORNA SAUCEDO NP [address], [address], [place], [address] , [facility] 1 09:22:16 Pain in left knee Active 2020 LORNA SAUCEDO NP [address] [facility], [address], [place], [address] , [facility] 1 09:22:52 Constipati on 36341582 Active 2020 Inge Rodríguez MD [address], [place], [address] , [facility] 1 16:36:30 Degenerati ve joint disease involving multiple joints 924523852 Active 2020 Inge Rodríguez MD [address] [facility], [address], [place], [address] , [facility] 1 23:37:24 Surgical incision wound of skin 751193167577 Active 2020 right knee LORNA SAUCEDO NP [address] [facility], [address], [place], [address] , [facility] 1 08:57:59 Pain in right knee Active 2020 LRONA SAUCEDO NP [address] [facility], [address], [place], [address] , [facility] 1 11:38:33 Chronic kidney disease stage 3A 140658206 Active 2020 Inge Rodríguez MD [address] [facility], [address], [place], [address] , [facility] 1 01:37:03 Cholecysti tis 31665042 Active 2019 Marcelina alonzo [facility] 0 13:27:09 Type 2 diabetes mellitus without complicati on 878172559 Active 2019 Marcelina alonzo [place] [facility] 0 13:27:09 Essential hypertensi on 67092096 Active 2019 Marcelina alonzo, [facility] 0 13:27:10 Coronary arterioscl erosis 28916788 Active 2019 Marcelina alonzo, [facility] 0 13:27:12 Chronic atrial fibrillati on 456371704 Active 2019 Marcelina alonzo, [facility] 0 13:27:18 Gastroesop hageal reflux disease without esophagiti s 912119266 Active 2019 Marcelina alonzo, [facility] 0 13:27:20 Disorder of urinary bladder 33317865 Active 2019 Marcelina alonzo, [facility] 0 13:30:10 History of deep vein thrombosis 977740826 Active 2019 Marcelina alonzo, [facility] 0 14:51:52 Congestive heart failure 12458774 Active 2019 Marcelina alonzo, [facility] 0 14:51:55 Renal mass 032120874 Active 2019 Marcelina alonzo, [facility] 0 14:52:00 Asthenia 86193242 Active 2019 Marcelina alonzo, [facility] 0 14:52:02 Problem Notes None recorded. Medical Equipment None Reported. Allergies Allergen ID Allergen Name Allergen Category Reaction Reaction Severity Criticality Documentation Date Start Date Code Code System Note Provider Name and Address Organization Details Recorded Time 35965 lisinopri l medicatio n Not available Not available Not available 04/04/2019 46458 RxNorm Not Available Not Available Not Available 48727 Dilaudid medicatio n Not available Not available Not available 01/07/2021 08916 3 RxNorm Not Available Not Available Not [...] mm[Hg] 57 mm[Hg] LORNA SAUCEDO NP [address] [facility], [address], [place], [address], [facility] 11:30:38 Date Recorded Body height Heart rate Respiratory rate Body temperature Oxygen saturation Oxygen saturation in Arterial blood by Pulse oximetry Systolic blood pressure Diastolic blood pressure Provider Name and Address Organization Details Last Updated DateTime 162.56 cm 71 /min 20 /min 97.6 [degF] 96 % 96 % 113 mm[Hg] 61 mm[Hg] LORNA SAUCEDO NP [address] [facility], [address], [place], [address], [facility] 08:38:54 Date Recorded Body height Body mass index (BMI) Body weight Heart rate Respiratory rate Body temperature Oxygen saturation Oxygen saturation in Arterial blood by Pulse oximetry Systolic blood pressure Diastolic blood pressure Provider Name and Address Organization Details Last Updated DateTime 162.56 cm 26.2 kg/m2 66925.4 8 g 70 /min 16 /min 97 [degF] 96 % 96 % 112 mm[Hg] 61 mm[Hg] Inge Rodríguez MD [address] [facility], [address], [place], [address], [facility] 16:25:57 Date Recorded Body height Heart rate Respiratory rate Body temperature Oxygen saturation Oxygen saturation in Arterial blood by Pulse oximetry Systolic blood pressure Diastolic blood pressure Provider Name and Address Organization Details Last Updated DateTime 162.56 cm 70 /min 16 /min 97 [degF] 96 % 96 % 112 mm[Hg] 61 mm[Hg] LORNA SAUCEDO NP [address] [facility], [address], [place], [address], [facility] 1 12:16:58 Date Recorded Body height Heart rate Respiratory rate Body temperature Oxygen saturation Oxygen saturation in Arterial blood by Pulse oximetry Systolic blood pressure Diastolic blood pressure Provider Name and Address Organization Details Last Updated DateTime 162.56 cm 91 /min 18 /min 97 [degF] 97 % 97 % 108 mm[Hg] 61 mm[Hg] LORNA SAUCEDO NP [address] [facility], [address], [place], [address], [place] [facility] 1 11:04:33 Social History Question Answer Notes LastModified by Organizat ion Details LastModified Time Tobacco Smoking Status Former Smoker quit 2013 Not Available [facility] 01/16/2020 03:13:20 Do You Have An Advance Directive? Yes CPR-hospital Ok, No Dialysis , Ok For Iv. Hydration, Art Nut. Information not available 01/07/2021 What Is Your Level Of Alcohol Consumption? Occasional [id number] Information not available 01/16/2020 How Much Tobacco Do You Chew? None [id number] Information not available 01/16/2020 What Is Your Code Status? DNI Information not available 01/07/2021 Do You Or Have You Ever Used E-cigarettes Or Vape? Never Used Electronic Cigarettes [id number] Information not available 01/16/2020 Legal Guardian? 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 12/12/2019 [id number] Information not available 01/16/2020 Do You Or Have You Ever Used Smokeless Tobacco? Never Used Smokeless Tobacco [id number] Information not available 01/16/2020 Has Tobacco Cessation Counseling Been Provided? No N/a As Pt. No Longer Smokes Information not available 12/16/2020 How Many Years Have You Smoked Tobacco? 50 [id number] Information not available 01/16/2020 Do You Or [...] Immunizations Vaccine Type Date Status Note Provider Rajesh gardner and Address Organization Details Recorded Time COVID-19, mRNA, LNP-S, PF, 30 mcg/0.3 mL dose 1 completed Julieth alonzo, [facility] 02/19/2021 13:36:20 Influenza, high-dose, quadrivalent, PF 1 completed Julieth [facility], [facility] 03/19/2021 09:32:37 Influenza, split virus, quadrivalent, preservative 0 completed Julieth [facility], [facility] 01/12/2020 10:17:01 Pneumococcal conjugate PCV 13 5 completed [facility], [facility] 08/12/2020 09:42:53 pneumococcal polysaccharide PPV23 4 completed [facility], [facility] 08/12/2020 09:43:04 Tdap 4 completed [facility] 08/12/2020 09:43:14 Past Encounters Encounter ID Performer Location Encounter Start Date Encounter Closed Date Diagnosis/Indication Diagnosis SNOMED-CT Code Diagnosis ICD10 Code Diagnosis Note [id number] Marcelina [address] [place] [address] [place] [address] 04/04/2019 13:17:17 04/04/2019 14:15:53 Cholecystitis 16957138 K80.10 recs for no surgical interventi on abd pain resolved on DC from acute care Pt without abd pain today continued on augmentin bid - no stop date- will call acute care and see if there was a stop date planned. WBC wnl monitor for pain mgmt 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 485542725 E11.9 diet controlled , not on meds for this accucheck prn Essential hypertension 73448741 I10 lasix 20mg on mon, wed, fri ADD per cards- metoprolol XL 50mg qd (hold for SBP<100), spironolac tone 12.5mg bid, and entresto 49/51mg bid (to change down to 24/26mg bid dose for consistent SBP<100) pt had been imdur in the past but cards does not want to restart this. monitor bp, labs Coronary arteriosclerosis 90687973 I25.10 atorvastat in 80mg qd metoprolol XL 50mg qd nitroglyce rin SL tab q5min for 3 doses monitor lfts prn Chronic at rial fibrillation 880400414 I48.21 on coumadin digoxin 0.125 qd on mon, wed, fri pt also on lovenox for DVT, see above metoprolol XL 50mg qd monitor for rate control, titrate coumadin prn Gastroesop hageal reflux disease without esophagitis 635738104 K21.9 pantoprazo le 40mg qd monitor for sx Disorder o f urinary bladder 00272885 N32.81 myrbetriq 50mg ER qd monitor for sx Renal mass 694808440 N28 .89 right sided is followed by nephrologi st no plan for interventi on at this time for this however CT in acute care finding of new left sided renal mass- to f/u with nephrologi st for this. History of deep vein thrombosis 305481962 Z86.718 ? DVT in acute care Pt has ordered lovenox and coumadin will continue AC therapy for now and request documentat ion from acute care regarding this US to RUE today stat monitor Asthenia 13676835 R53.1 PT/OT to eval and treat monitor for fall risk Congestive heart failure 38458226 I50.22 lasix 20mg on mon, wed, fri ADD per cards- metoprolol XL 50mg qd (hold for SBP<100), spironolac tone 12.5mg bid, and entresto 49/51mg bid (to change down to 24/26mg bid dose for consistent SBP<100) f/u with cards monitor resp status, fluid status, daily weights [id number] [address] 04/06/2019 14:48:45 04/12/2019 14:33:13 History of deep vein thrombosis 943971742 Z86.718 DVT to the RUE in acute care pt on lovenox - coumadin bridge to DC lovenox when coumadin is in therapeuti c range monitor Essential hypertension 42527534 I10 lasix 20mg on mon, wed, fri ADD per cards- metoprolol XL 50mg qd (hold for SBP<100), spironolac tone 12.5mg bid, and entresto 49/51mg bid (to change down to 24/26mg bid dose for consistent SBP<100) pt had been imdur in the past but cards does not want to restart this. bp has been stable at goal <150/90 continue to monitor Chronic at rial fibrillation 545673278 I48.21 on coumadin digoxin 0.125 qd on mon, wed, fri metoprolol XL 50mg qd monitor for rate control, titrate coumadin prn Osteoarthr itis of left knee joint 7833477735 31757 M17.12 pt getting lidocaine patch, apap 650mg prn, muscle rub she also sees specialist outpt and gets injections . will DC prn apap and schedule 1,000mg tid monitor for effect continue with PT/OT to maximize function as tolerated. [id number] Marcelina [place] [address] [address] [place], [place] [address] 04/07/2019 13:58:39 04/12/2019 14:36:15 Osteoarthritis of left knee joint 0044872662 10104 M17.12 pt getting lidocaine patch to bilat knees, muscle rub started on apap 1,000mg tid yesterday with little effect, will change to prn start tramadol 25mg bid prn Pt sees specialist - will order a consult monitor for pain mgmt continue with PT/OT to maximize function as tolerated. History of deep vein thrombosis 055258201 Z86.718 DVT to the RUE in acute care pt on lovenox - coumadin bridge coumadin in therapeuti c range today, will DC lovenox. continue coumadin and titrate prn monitor Chronic at rial fibrillation 711773863 I48.21 on coumadin digoxin 0.125 qd on mon, wed, fri metoprolol XL 50mg qd monitor for rate control, titrate coumadin prn Essential hypertension 89595045 I10 stable lasix 20mg on mon, wed, fri metoprolol XL 50mg qd (hold for SBP<100), spironolac tone 12.5mg bid entresto 49/51mg bid (to change down to 24/26mg bid dose for consistent SBP<100) monitor bp, labs Cholecystitis 74530381 K 80.10 recs for no surgical interventi on abd pain resolved on DC from acute care Pt without abd pain today continued on augmentin bid - no stop date- will call acute care and see if there was a stop date planned. WBC wnl monitor for pain mgmt Congestive heart failure 51649556 I50.22 lasix 20mg on mon, wed, fri metoprolol XL 50mg qd (hold for SBP<100), spironolac tone 12.5mg bid f/u with cards monitor resp status, fluid status, daily weights Coronary arteriosclerosis 63572279 I25.10 atorvastat in 80mg qd metoprolol XL 50mg qd nitroglyce rin SL tab q5min for 3 doses monitor lfts prn Gastroesop hageal reflux disease without esophagitis 688132523 K21.9 [place]opraz[place] 40[place] [id number] Mohsen Collins MD [address] [address] 04/10/2019 11:20:58 04/12/2019 14:47:48 Acute cholecystitis 92978946 K81.0 see HPIconserv ative management monitor sxrefer back to surger for change in condition Asthenia 99555300 R53.1 PT OT eval and treatmonit or fall riskwas ambulating with walker prior Chronic at rial fibrillation 459744632 I48.21 monitor and adjust coumadinmo nitor for rate control Congestive heart failure 84101548 I50.22 monitor respirator y function and fluid statusfoll ow weightstit rate meds prn Gastroesop hageal reflux disease without esophagitis 112658385 K21.9 stable on PPImonitor for sx control Essential hypertension 05059034 I10 monitor and titrate current medsfollow ed by gertrude gardner with concerns [id number] [address]ina [address] [address] 04/11/2019 13:13:45 04/18/2019 08:34:20 Acute cholecystitis 59229123 K81.0 see HPIconserv ative management monitor sxrefer back to surger for change in condition Asthenia 77593516 R53.1 PT OT eval and treatmonit or fall riskwas ambulating with walker prior Chronic at rial fibrillation 977285212 I48.21 monitor and adjust coumadinmo nitor for rate control Osteoarthr itis of left knee joint 2020364628 96263 M17.12 pt getting lidocaine patch to bilat knees, muscle rub D/C tramadol today- believe this may be causing increased confusion/ lethargy continue apap 1,000mg tid prn awaiting f/u with ortho, ?need for steroidal injections monitor for pain mgmt continue with PT/OT to maximize function as tolerated. History of deep vein thrombosis 494682274 Z86.718 DVT to the RUE in acute care swelling has improved lovenox now DCd, pt remains on coumadin continue coumadin and titrate prn monitor Essential hypertension 89748591 I10 stable lasix 20mg on wed, wed, wed metoprolol XL 50mg qd (hold for SBP<100), spironolac tone 12.5mg bid entresto 49/51mg bid (to change down to 24/26mg bid dose for consistent SBP<100) monitor bp, labs Pain in left arm 5692524 00 M79.602 see HPI pain to left arm, worse with therapy also pain to right arm however pt with confusion, unable to get full history of the pain tramadol DCd today as it may be causing increased confusion will order niharika to LANCE qid and prn pain psych consult ordered- she appears to have fear of pain rather than genuine pain that may be restrictin g her progress with therapy as well. stat labs ordered today as they were not put in for wednesday. Will have them ordered for wednesday weekly thereafter . consider UA if pt continues with confusion/ lethargy despite DC of tramadol. monitor Congestive heart failure 53611784 I50.22 lasix 20mg on wed, wed, wed metoprolol XL 50mg qd (hold for SBP<100), spironolac tone 12.5mg bid f/u with cards monitor resp status, fluid status, daily weights [id number] JORDON MENENDEZ [address] [place] [phone] 12/08/2019 08:07:07 12/11/2019 16:45:18 Chronic atrial fibrillation 855775934 I48.20 lasix 40 mg daily metoprolol er 50 mg hs Congestive heart failure 80052801 I50.9 lasix 40 mg daily monitor resp status Essential hypertension 18648753 I10 metoprolol 50 mg hs monitor bp Hyperlipidemia 11228536 E78.5 lipitor 80 mg daily Acute urin polina tract infection 637116693 N39.0 cefuroxime 250 mg bid to 12/11 Gout 26891410 M10.9 predisone taper norco 5/325 q4hr prn diclofenac 1% to knees [id number] Inge Rodríguez MD [address] [address] 12/12/2019 18:51:23 12/18/2019 10:30:51 Chronic atrial fibrillation 729134340 I48.21 Rate in good control on metoprolol as above. Not on AC Monitor HR Congestive heart failure 37363659 I50.22 I25.5 Z95.810 Pt. feels back to baseline. Continue lasix 40 mg qd and metoprolol 50 mg qd. Very deconditio ellis, needs PT/OT for strengthen ing and function. Monitor resp. status, fluid status, wts and labs. Essential hypertension 24890608 I10 In good control on meds as above. Monitor BP and labs Hyperlipidemia 84296923 E78.49 Continue atorvastat in 80 mg qd. Monitor labs as outpt. Acute urin polina tract infection 461967606 N30.00 Completes course of cefuroxime 250 mg BID today. Monitor for recurrence . Gout 73478893 M10.072 Doing well. Continue prednisone taper, to complete 12/17 Pain much improved, will decrease hydrocodon e/APAP 5/325 to q 6 hrs prn. Contine diclofenac 1% to knees and lidocaine patch. Monitor sxs. Acute-on-c hronic renal failure 458406071 N17.8 N18.2 BUN/cr in 07/2019 was 27/1.2, so sig worse than baseline still. Continue to avoid nephrotoxi c meds. Monitor labs. Renal consult. [id number] JORDON MENENDEZ [address] [place] [address] 12/13/2019 09:32:51 12/15/2019 09:06:00 Congestive heart failure 09530078 I50.9 lasix 40 mg daily monitor resp status Gout 10182319 M10.9 predisone taper to 12/17 norco 5/325 q4hr prn diclofenac 1% to knees 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 860667391 E11.9 diet controlled , not on meds for this accucheck prn [id number] JORDON MENENDEZ [address] [place] [phone] 12/18/2019 09:46:04 12/21/2019 15:26:11 Congestive heart failure 66998960 I50.9 lasix 40 mg daily monitor resp status Essential hypertension 89586171 I10 metoprolol 50 mg hs monitor bp 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 323446417 E11.9 diet controlled , not on meds for this accucheck prn [id number] LORNAJr SAUCEDO NP RORY TARANGO [address] [place] [phone] 12/25/2019 10:13:38 12/27/2019 10:05:24 Gout 64921970 M10.9 predisone taper 20 mg daily ax4 days, then 10 mg daily x4 days norco 5/325 q4hr prn diclofenac 1% to knees Asthenia 95720425 R53.1 PT OT eval and treat monitor fall risk was ambulating with walker prior [id number] LORNA SAUCEDO NP [address] [address] 01/01/2020 12:24:46 01/04/2020 12:53:43 Gout 89734397 M10.9 predisone taper 20 mg daily ax4 days, then 10 mg daily x4 days norco 5/325 q4hr prn diclofenac 1% to knees Asthenia 64286511 R53.1 PT OT eval and treat monitor fall risk was ambulating with walker prior [id number] LORNA SAUCEDO NP [address] [address] 01/05/2020 08:36:09 01/08/2020 13:24:34 Kqdna-cj-fhpqbhb renal failure 970369672 N18.9 monitor labs Asthenia 68246133 R53.1 PT OT eval and treat monitor fall risk was ambulating with walker prior Chronic at rial fibrillation 115549268 I48.20 lasix 40 mg daily metoprolol er 50 mg hs Congestive heart failure 57688620 I50.9 lasix 40 mg daily monitor resp status Coronary arteriosclerosis 77831184 I25.10 monitor for any symptoms Essential hypertension 87505555 I10 metoprolol 50 mg hs monitor bp Gastroesop hageal reflux disease without esophagitis 274540977 K21.9 monitor for symptoms Gout 56548019 M10.9 norco 5/325 q4hr prn diclofenac 1% to knees Hyperlipidemia 55914846 E78.5 lipitor 80 mg daily Type 2 orbert betes mellitus without complication 746481773 E11.9 diet controlled , not on meds for this accucheck prn [id number] LORNA SAUCEDO NP [address] [address] 04/19/2020 07:49:30 04/23/2020 08:17:38 Chronic atrial fibrillation 592160448 I48.20 lasix 40 mg daily metoprolol er 50 mg hs Congestive heart failure 64809259 I50.9 lasix 40 mg daily monitor resp status Coronary arteriosclerosis 16690153 I25.10 monitor for any symptoms Disorder o f urinary bladder 78848104 N32.9 myrbetriq 50 mg daily Essential hypertension 73383569 I10 metoprolol 50 mg hs monitor bp Gastroesop hageal reflux disease without esophagitis 633326116 K21.9 protonix 40 mg daily Gout 59484633 M10.9 allopurino l 100 mg daily lidocaine patch daily right knee diclofenac 1% to knees 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 736428584 E11.9 diet controlled , not on meds for this accucheck prn Hyperlipidemia 17441286 E78.5 lipitor 80 mg daily [id number] Inge Rodríguez MD [address] [address] 04/22/2020 13:43:45 04/25/2020 11:37:29 Congestive heart failure 94010982 I50.22 I25.5 Z95.810 Appears euvolemic. Continue lasix 40 mg qd and metoprolol 150 mg qd. Monitor resp. status, fluid status, wts and labs. Acute-on-c hronic renal failure 580747248 N17.8 N18.2 At new baseline. Continue to avoid nephrotoxi c meds. Monitor labs. Renal consult prn. Chronic at rial fibrillation 711233733 I48.21 Rate in good control on metoprolol as above. Not on AC Monitor HR Essential hypertension 12990215 I10 In good control on meds as above. Monitor BP and labs Hyperlipidemia 68555186 E78.49 Continue atorvastat in 80 mg qd. Monitor labs as outpt. Gout 09229907 M10.072 No current sxs. Elevated uric acid inpt. Continue allopurino l 100 mg qd. and colchicine prn. Monitor sxs. and recheck uric acid prn. Coronary arteriosclerosis 12623570 I25.10 monitor for any symptoms Gastroesop hageal reflux disease without esophagitis 654460517 K21.9 No current sxs. Continue pantoprazo le 40 mg qd. Monitor for sxs. 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 813333527 E11.9 diet controlled , not on meds for this Check accuchecks prn Bilateral knee pain 1187 078896 0796648 M25.561 M25.562 M15.0 Scheduled for TKR on left in may, but currently right knee is worse. Uric acid was elevated inpt., but doubt gout in knees. Also tap inpt was dry. Will start hydrocodon e/APAP 5/325 q 4 hrs prn x 3 days, then q 6 hrs prn. And continue lidocaine cream prn and diclofenac gel BID. Needs PT/OT for strengthen ing, balance, gait training, safety and function. Monitor pain relief. Overactive urinary bladder 039185023 N32.81 Continue myrbetriq 50 mg qd. monitor sxs. [id number] JORDON MENENDEZ [address] [place] [address] 04/29/2020 07:38:33 05/01/2020 11:27:39 Acute urinary tract infection 203090217 N39.0 recovered Acute-on-c hronic renal failure 067241075 N18.9 monitor labs Asthenia 25185015 R53.1 PT OT eval and treat monitor fall risk was ambulating with walker prior Cholecystitis 33193689 K 81.9 recovered Chronic at rial fibrillation 930101539 I48.20 lasix 40 mg daily metoprolol er 50 mg hs Congestive heart failure 64913806 I50.9 lasix 40 mg daily monitor resp status Coronary arteriosclerosis 52802567 I25.10 monitor for any symptoms Disorder o f urinary bladder 99775522 N32.9 myrbetriq 50 mg daily Essential hypertension 71204051 I10 metoprolol 150 mg hs monitor bp Gastroesop hageal reflux disease without esophagitis 842686724 K21.9 protonix 40 mg dailytums q4 hr prn Gout 71214803 M10.9 allopurino l 100 mg daily lidocaine patch daily right knee diclofenac 1% to knees bid cholchecin e 0.6 2-tabs the 0.6 mg qd prn vicodin 5/325 mg q4 hr prn History of deep vein thrombosis 737834151 Z86.718 resolved Hyperlipidemia 57541864 E78.5 lipitor 80 mg daily Overactive urinary bladder 034793016 N32.81 myrbetriq 50 mg qd. monitor sxs. Renal mass 024034995 N28 .89 f/u with nephrologi st 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 213104785 E11.9 diet controlled , not on meds for this accucheck prn [id number] JORDON MENENDEZ [address] [place] [address] [place] [address] 05/31/2020 07:34:55 06/05/2020 10:23:00 Type 2 diabetes mellitus without complication 961128792 E11.9 diet controlled , not on meds for this accucheck prn Renal mass 955498447 N28 .89 f/u with nephrologi st Overactive urinary bladder 682983195 N32.81 myrbetriq 50 mg qd.monitor sxs. Hyperlipidemia 92805438 E78.5 atorvastat in 80 mg daily History of deep vein thrombosis 346422680 Z86.718 xarelto 10 mg daily Gout 49808559 M10.9 allopurino l 100 mg daily lidocaine patch daily right knee diclofenac 1% to knees bid cholchecin e 0.6 2-tabs the 0.6 mg qd prn oxycodone 5 mg q4 hrprn tramadol 50 mg q4 hr prn Gastroesop hageal reflux disease without esophagitis 612386028 K21.9 protonix 40 mg dailytums q4 hr prn Essential hypertension 98813875 I10 metoprolol er 100 mg hs monitor bp Coronary arteriosclerosis 31546401 I25.10 monitor for any symptoms Congestive heart failure 56434049 I50.9 lasix 40 mg daily monitor resp status Chronic at rial fibrillation 694508368 I48.20 lasix 40 mg daily metoprolol er 50 mg hs Pain in left knee 910250 5343 57835 M25.562 oxycodone 5 mg q4 hrprn tramadol 50 mg q4 hr prn [id number] MD RORY Becerril [address] [place] [address] 06/03/2020 13:11:50 06/11/2020 14:52:39 Degenerative joint disease involving multiple joints 461198265 M15.0 Z96.652 S/P TKR on 05/23. Needs PT/OT for strengthen ing, balance, gait training, safety and function. Seen by PM&R this AM and rec, for scheduled dose of oxy 7.5 mg qAM and then continue 5 mg q 4 hrs prn. Will also schedule APAP 1000 mg TID. And continue tramadol 50 mg q 4 hrs prn. Started on rivaroxaba n 10 mg qd for DVT prophylaxi s. Monitor pain relief. Bilateral knee pain 1187 220312 7276390 M25.561 M25.562 M15.0 With continued right knee pain also. Continue PT/OT as above. Monitor pain relief. Congestive heart failure 12363805 I50.22 I25.5 Z95.810 Appears euvolemic. Continue lasix 40 mg qd and metoprolol 100 mg qd. Monitor resp. status, fluid status, wts and labs. Acute-on-c hronic renal failure 088102604 N17.8 N18.2 Stable at new baseline. Continue to avoid nephrotoxi c meds. Monitor labs. Renal consult prn. 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 Monitor HR Essential hypertension 24716489 I10 In good control on meds as above. Monitor BP and labs Hyperlipidemia 02597474 E78.49 Continue atorvastat in 80 mg qd. Monitor labs as outpt. Gout 53829386 M10.072 No current sxs., but with elevated uric acid inpt. Continue allopurino l 100 mg qd. and use colchicine prn sxs. Monitor sxs. and recheck uric acid prn. Coronary arteriosclerosis 34011030 I25.10 Continue meds as above. Monitor for any symptoms F/U with cardio as planned. Gastroesop hageal reflux disease without esophagitis 374816449 K21.9 No current sxs. Continue pantoprazo le 40 mg qd. Monitor for sxs. 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 Monitor accuchecks prn Overactive urinary bladder 606212356 N32.81 Continue myrbetriq 50 mg qd. monitor sxs. Constipation 46997118 K5 9.03 No BM since transfer here. Says she doesn't usually have problems at home, so likely due to meds and immobility . Will continue colace 100 mg BID and give dose of MOM tonight and consider other meds if no BM by tomorrow. Monitor bowel function. [id number] LORNA SAUCEDO NP [address] [address] 06/04/2020 08:11:50 06/07/2020 13:33:34 Pain in left knee 5344483013 34584 M25.562 oxycodone 5 mg q4 hrprn tramadol 50 mg q4 hr prnPT OT eval and treat Congestive heart failure 98658989 I50.9 lasix 40 mg daily monitor resp status [id number] LORNA SAUCEDO NP [address] [address] 06/07/2020 11:43:39 06/11/2020 15:04:18 Pain in left knee 2380783927 44047 M25.562 oxycodone 5 mg q4 hr prn tramadol 50 mg q4 hr prn PT OT eval and treat Gastroesop hageal reflux disease without esophagitis 568933632 K21.9 protonix 40 mg dailytums q4 hr prn History of deep vein thrombosis 875979592 Z86.718 xarelto 10 mg daily [id number] LORNA SAUCEDO NP [address] [address] 06/10/2020 15:29:11 06/13/2020 15:30:41 Pain in left knee 7965985092 75838 M25.562 oxycodone 5 mg q4 hr prn, 7.5 mg am tramadol 50 mg q4 hr prn PT OT eval and treat Degenerati ve joint disease involving multiple joints M15.9 Needs PT/OT for strengthen ing, balance, gait training, safety and function. oxycodone 7.5 mg qAM and 5 mg q 4 hrs prn. APAP 1000 mg TID. tramadol 50 mg q 4 hrs prn rivaroxaba n 10 mg qd for DVT prophylaxi s. Monitor pain relief [id number] LORNA SAUCEDO NP [address] [address] 06/14/2020 12:44:17 06/17/2020 16:30:53 Degenerative joint disease involving multiple joints M15.9 Needs PT/OT for strengthen ing, balance, gait training, safety and function. oxycodone 7.5 mg qAM and 5 mg q 4 hrs prn. APAP 1000 mg TID. tramadol 50 mg q 4 hrs prn rivaroxaba n 10 mg qd for DVT prophylaxi s. Monitor pain relief Pain in left knee 832567 7848 93916 M25.562 oxycodone 5 mg q4 hr prn, 7.5 mg am tramadol 50 mg q4 hr prn PT OT eval and treat [id number] LORNA SAUCEDO NP [address] [address] 06/25/2020 08:29:30 06/27/2020 09:37:45 Jttsi-jg-tovqmgs renal failure 694614594 N18.9 monitor labs Asthenia 89801139 R53.1 PT OT eval and treat monitor fall risk was ambulating with walker prior Cholecystitis 36736137 K 81.9 recovered Chronic at rial fibrillation 256114949 I48.20 lasix 40 mg daily metoprolol er 50 mg hs Congestive heart failure 22459895 I50.9 lasix 40 mg daily monitor resp status Constipation 76262880 K5 9.00 miralax daily Coronary arteriosclerosis 91274823 I25.10 monitor for any symptoms Degenerati ve joint disease involving multiple joints M15.9 Needs PT/OT for strengthen ing, balance, gait training, safety and function. oxycodone 7.5 mg prn. APAP 1000 mg TID. rivaroxaba n 10 mg qd for DVT prophylaxi s. Monitor pain relief Disorder o f urinary bladder 47119809 N32.9 myrbetriq 50 mg daily Essential hypertension 58013290 I10 metoprolol er 100 mg hs monitor bp Gastroesop hageal reflux disease without esophagitis 186912792 K21.9 protonix 40 mg dailytums q4 hr prn Gout 29929292 M10.9 allopurino l 100 mg daily lidocaine patch daily right knee diclofenac 1% to knees bid cholchecin e 0.6 2-tabs the 0.6 mg qd prn oxycodone 7.5 mg q4 hrprn tramadol 50 mg q4 hr prn Hyperlipidemia 79999882 E78.5 atorvastat in 80 mg daily Pain in left knee 818838 3634 90981 M25.562 oxycodone 7.5 mg q4 hr prn tramadol 50 mg q4 hr prn PT OT eval and treat 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 410427961 E11.9 diet controlled , not on meds for this accucheck prn [id number] JORDON MENENDEZ SUKHDEEP [address] [place] [address] [place] [address] 07/02/2020 07:59:13 07/04/2020 13:33:53 Acute urinary tract infection 134471386 N39.0 recovered Acute-on-c hronic renal failure 955166048 N18.9 monitor labs Asthenia 97352263 R53.1 PT OT eval and treat monitor fall risk was ambulating with walker prior Cholecystitis 32366611 K 81.9 recovered Chronic at rial fibrillation 963024828 I48.20 lasix 40 mg daily metoprolol er 100 mg hs Congestive heart failure 87522777 I50.9 lasix 40 mg daily monitor resp status Constipation 03552945 K5 9.00 miralax daily Coronary arteriosclerosis 66244185 I25.10 monitor for any symptoms Degenerati ve joint disease involving multiple joints 674956099 M15.9 Needs PT/OT for strengthen ing, balance, gait training, safety and function. APAP 1000 mg TID. rivaroxaba n 10 mg qd for DVT prophylaxi s. Monitor pain relief Disorder o f urinary bladder 84919712 N32.9 myrbetriq 50 mg daily Essential hypertension 68091012 I10 metoprolol er 100 mg hs monitor bp Gastroesop hageal reflux disease without esophagitis 259814066 K21.9 protonix 40 mg dailytums q4 hr prn Gout 08180249 M10.9 allopurino l 100 mg daily lidocaine patch daily right knee diclofenac 1% to knees bid cholchecin e 0.6 2-tabs the 0.6 mg qd prn History of deep vein thrombosis 272980728 Z86.718 xarelto 10 mg daily Hyperlipidemia 01602768 E78.5 atorvastat in 80 mg daily Overactive urinary bladder 810503143 N32.81 myrbetriq 50 mg qd.monitor sxs. Pain in left knee 325960 2381 63374 M25.562 lidoderm patch daily prn PT OT eval and treat Renal mass 754756323 N28 .89 f/u with nephrologi st 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 260337459 E11.9 diet controlled , not on meds for this accucheck prn [id number] JORDON MENENDEZ [address] [place] [address] 12/03/2020 08:55:59 12/10/2020 09:17:00 Degenerative joint disease involving multiple joints 643689948 M15.9 Needs PT/OT for strengthen ing, balance, gait training, safety and function tizanadine 2 mg tid tramadol 50-100 mg q6hr prn x 7 days. APAP 650 mg q6hr . rivaroxaba n 10 mg qd for DVT prophylaxi s. Monitor pain relief Surgical i ncision wound of skin 6397219341 00 R23.8 monitor for any signs of infectionf u NEOS 12/10 as planned Acute-on-c hronic renal failure 136840932 N18.9 monitor labs Asthenia 23696840 R53.1 PT OT eval and treat monitor fall risk was ambulating with walker prior Cholecystitis 39091303 K 81.9 recovered Chronic at rial fibrillation 231164494 I48.20 lasix 40 mg am, 20 mg pm, Fri, Sat, Sun metoprolol er 100 mg hs Congestive heart failure 47741775 I50.9 lasix 40 mg am, 20 mg pm, Fri, Sat, Sun monitor resp status Constipation 96235495 K5 9.00 miralax daily prncolace bid Coronary arteriosclerosis 75933483 I25.10 monitor for any symptoms Disorder o f urinary bladder 09862833 N32.9 myrbetriq 50 mg daily Essential hypertension 03503695 I10 metoprolol er 100 mg hs monitor bp Gastroesop hageal reflux disease without esophagitis 679168699 K21.9 protonix 40 mg dailytums q4 hr prn Gout 36175553 M10.9 allopurino l 100 mg daily lidocaine patch daily right knee diclofenac 1% to knees bid prn cholchecin e 0.6 2-tabs qd prn Hyperlipidemia 52713195 E78.5 atorvastat in 80 mg daily Overactive urinary bladder 084502898 N32.81 myrbetriq 50 mg qd.monitor sxs. 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 679994781 E11.9 diet controlled , not on meds for this accucheck prn [id number] JORDON MENENDEZ SUKHDEEP [address] [place] [address] 12/04/2020 11:19:28 12/06/2020 13:53:27 Asthenia 81096435 R53.1 PT OT eval and treat monitor fall risk was ambulating with walker prior Surgical i ncision wound of skin 2041244544 00 R23.8 monitor for any signs of infectionf u NEOS 12/10 as planned Pain in right knee 14102 38034 88453 M25.561 tramadol 50 mg q6hr scheduledt izanadine 4 mg [id number] one 5 g q6hr prnknee immobilize r at night only [id number] JORDON MENENDEZ [address] [address] 12/11/2020 08:21:46 12/13/2020 15:18:13 Pain in right knee 2934568991 56641 M25.561 tramadol 50 mg q6hr scheduledt izanadine 2 mg [id number] one 5-10 mg q4hr prnknee immobilize r Surgical i ncision wound of skin 8842656966 00 R23.8 monitor for any signs of infectionf /u NEOS 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 834183989 E11.9 diet controlled , not on meds for this accucheck prn Overactive urinary bladder 545957176 N32.81 myrbetriq 50 mg qd.monitor sxs. Hyperlipidemia 29841577 E78.5 atorvastat in 80 mg daily History of deep vein thrombosis 651966110 Z86.718 xarelto 10 mg daily Gout 49256040 M10.9 allopurino l 100 mg daily lidocaine patch daily right knee diclofenac 1% to knees bid prn cholchecin e 0.6 2-tabs qd prn Gastroesop hageal reflux disease without esophagitis 406237568 K21.9 protonix 40 mg dailytums q4 hr prn Essential hypertension 69999053 I10 metoprolol er 100 mg hs monitor bp Degenerati ve joint disease involving multiple joints 254477637 M15.9 Needs PT/OT for strengthen ing, balance, gait training, safety and function tizanadine 2 mg tid tramadol 50 mg qid -100 mg q6hr prn APAP 650 mg q6hr . rivaroxaba n 10 mg qd for DVT prophylaxi s. Monitor pain relief Coronary arteriosclerosis 74629320 I25.10 monitor for any symptoms Constipation 92866954 K5 9.00 miralax daily prncolace bid Congestive heart failure 99148533 I50.9 lasix 40 mg am monitor resp status Chronic at rial fibrillation 042858516 I48.20 lasix 40 mg am metoprolol er 100 mg hs Asthenia 83478110 R53.1 PT OT eval and treat monitor fall risk was ambulating with walker prior Acute-on-c hronic renal failure 445991539 N18.9 monitor labs [id number] Inge Rod[facility]guez [facility] [address] [place] [address] rd [place] [address] 12/12/2020 16:13:14 12/17/2020 11:12:37 Pain in right knee 9671058869 77589 M25.561 Still with sig. pain, but relieved with pain meds.Ginette nue tramadol 50 mg q 6 hrs scheduled, tizanidine 2 mg q 8 hrs, APAP 650 mg TID prn and oxycodone 5-10 mg q 4 hrs prn.Contin ue Xarelto for DVT prophylaxi s x 30 days.Ginette nue knee immobilize rNeeds PT/OT for strengthen ing, balance, gait training, safety and function.M onitor incision.F /U with ortho as planned. 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 Overactive urinary bladder 318419257 N32.81 Continue myrbetriq 50 mg qd.Monitor urinary function. Hyperlipidemia 94981693 E78.49 Continue atorvastat in 80 mg qd.Monitor labs as outpt. History of deep vein thrombosis 356019384 Z86.718 Currently on Xarelto for DVT prophylaxi s. But not on it senior care due to hx of GI bleed.Lorna tor for sxs. Gout 33613840 M10.09 Continue allopurino l 100 mg qd and colchicine 0.6 2 tabs qd prn for flares.Mon itro for sxs. Gastroesop hageal reflux disease without esophagitis 375094075 K21.9 No current sxs.Contin ue pantoprazo le 40 mg qd and tums q 4 hrs prnMonitor for sxs. Essential hypertension 32118460 I10 Good control on metoprolol ER 100 mg qd..Monito r BP and labs. Degenerati ve joint disease involving multiple joints 234409031 M15.0 Continue pain meds as above.Lorna tor sxs. Coronary arteriosclerosis 24844571 I25.10 With sig. hx.Continu e metoprolol as above.F/U with cardio as planned. Constipation 80585939 K5 9.09 miralax daily prncolace bid Congestive heart failure 42506105 I50.[address]Appe ars euvolemic. Continue metoprolol 100 mg qd and lasix 40 mg amMonitor resp. status, fluid status, wts and labs. Chronic at rial fibrillation 967581477 I48.0 Rate in good control on metoprolol ER 100 mg qd.Not on chronic AC due to GI bleed. Currently on Xarelto for 30 days post-op.Mo nitor HR and bleeding risk. Chronic ki dney disease stage 3A 992625987 N18.31 Stable at baseline.C ontinue to avoid nephrotoxi c meds as able.Monit or labs.Renal consult prn. [id number] LORNA SAUCEDO NP [facility] SUKHDEEP [address] [place] [address] 12/13/2020 12:39:28 12/17/2020 12:46:43 Pain in right knee 1554825923 61181 M25.561 tramadol 50 mg q6hr scheduledt izanadine 2 mg [id number] one 5-10 mg q4hr prnknee immobilize r Surgical i ncision wound of skin 3963559255 00 R23.8 monitor for any signs of infectionf /u NEOS [id number] LORNA SAUCEDO NP [address] [address] 12/16/2020 10:18:46 12/17/2020 13:39:35 Asthenia 18540821 R53.1 PT OT eval and treat monitor fall risk was ambulating with walker prior Pain in right knee 87298 95052 43929 M25.561 tramadol 50 mg q6hr scheduledt izanadine 2 mg c7rnllgwfi one 5-10 mg q4hr prnknee immobilize r [id number] LORNA SAUCEDO NP [address] [address] 12/20/2020 12:36:08 12/24/2020 11:10:32 Gout 40625655 M10.09 allopurino l 100 mg daily lidocaine patch daily right knee diclofenac 1% to knees bid prn cholchecin e 0.6 2-tabs qd prn Pain in right knee 68322 32477 94948 M25.561 tramadol 50 mg q6hr scheduledt izanadine 2 mg [id number] one 5-10 mg q4hr prnknee immobilize r Surgical i ncision wound of skin 7537566336 00 R23.8 monitor for any signs of infectionf /u NEOS [id number] LORNA SAUCEDO NP RORY TARANGO [address] [place] [address] 12/23/2020 08:51:19 12/25/2020 15:10:59 Degenerative joint disease involving multiple joints 287391806 M15.0 Needs PT/OT for strengthen ing, balance, gait training, safety and function tizanadine 2 mg tid tramadol 50 mg qid -100 mg q6hr prn APAP 650 mg q6hr . rivaroxaba n 10 mg qd for DVT prophylaxi s. Monitor pain relief Surgical i ncision wound of skin 1907865002 00 R23.8 monitor for any signs of infectionf /u NEOS Pain in right knee 92374 49685 07557 M25.561 tramadol 50 mg q6hr scheduledt izanadine 2 mg h0ymdghczx one 5-10 mg q4hr prnknee immobilize r Gout 37053992 M10.09 allopurino l 100 mg daily lidocaine patch daily right knee diclofenac 1% to knees bid prn cholchecin e 0.6 2-tabs qd prn- hold during naproxynna proxyn 500 mg bid x 7 days [id number] JORDON MENENDEZ [address] [place] [place] [address] 12/27/2020 11:12:53 12/30/2020 15:10:57 Surgical incision wound of skin 4842649806 00 R23.8 monitor for any signs of infectionf /u NEOS Pain in right knee 92418 94319 52843 M25.561 tramadol 50 mg q6hr scheduledt izanadine 2 mg e3yomdifmz one 5-10 mg q4hr prn [id number] JORDON MENENDEZ [address] [place] [address] 12/30/2020 10:50:14 01/01/2021 14:58:34 Surgical incision wound of skin 1165329611 00 R23.8 monitor for any signs of infectionf /u NEOS Pain in right knee 97981 58097 91038 M25.561 tramadol 50 mg q6hr scheduled- change to q8 hr for 7 daystizana dine 2 mg c8ygydffli one 5-10 mg q4hr prn--d/c the 10 mg dose Asthenia 76881325 R53.1 PT OT eval and treat monitor fall risk was ambulating with walker prior [id number] JORDON MENENDEZ [address] [place] [address] 12/31/2020 10:59:03 01/01/2021 15:38:08 Lihml-bw-ioeilza renal failure 012711833 N18.9 monitor labssend to ED for JOSE CARLOS [id number] JORDON MENENDEZ SUKHDEEP [address] [place] [address] [place] [address] 01/07/2021 08:34:28 01/09/2021 14:53:44 Ggnrw-vn-opdxsgx renal failure 260723872 N18.9 monitor labssend to ED for JOSE CARLOS Asthenia 68011979 R53.1 PT OT eval and treat monitor fall risk was ambulating with walker prior Chronic at rial fibrillation 006531970 I48.0 lasix 40 mg daily, 20 mg Fr/Sa/Ching metoprolol er 100 mg hs Chronic ki dney disease stage 3A 356741361 N18.31 monitor labs and urine output Congestive heart failure 87463686 I50.22 lasix 40 mg daily, 20 mg Fr/Sa/Ching monitor resp status Constipation 65551725 K5 9.09 miralax daily prncolace bid Degenerati ve joint disease involving multiple joints 204281198 M15.0 Needs PT/OT for strengthen ing, balance, gait training, safety and function APAP 650 mg q6hr .oxycodone 5 mg q4hr prnMonitor pain relief Coronary arteriosclerosis 81479331 I25.10 monitor for any symptoms Disorder o f urinary bladder 01260862 N32.9 myrbetriq 50 mg daily Essential hypertension 03106492 I10 metoprolol er 100 mg hs monitor bp Gastroesop hageal reflux disease without esophagitis 767085103 K21.9 protonix 40 mg dailytums q4 hr prn Gout 96352450 M10.09 allopurino l 100 mg daily diclofenac 1% to knees bid prn cholchecin e 0.6 2-tabs qd prn History of deep vein thrombosis 185874790 Z86.718 monitor Hyperlipidemia 30349085 E78.49 atorvastat in 80 mg daily Overactive urinary bladder 751420956 N32.81 myrbetriq 50 mg qd.monitor sxs. 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 Asthenia 65620265 R53.1 Continues to be very deconditio ellis, due to multiple complicati ons since original admission. Needs PT/OT for strengthen ing, balance, gait training, safety and function.C ontinue fall precaution s.Monitor for safety. Chronic at rial fibrillation 624951546 I48.0 Rate in good control on metoprolol ER 100 mg qd.Not on chronic AC due to hx of GI bleed.Lorna tor HR and bleeding risk. Chronic ki dney disease stage 3A 127270177 N18.31 As above. Congestive heart failure 54343026 I50.[address]Appe ars euvolemic. Continue metoprolol 100 mg qd and lasix 40 mg qam with extra 20 mg at 2pm on Fr/Sa/SuMo nitor resp. status, fluid status, wts and labs. Constipation 82215818 K5 9.09 Continue bowel meds as ordered. Degenerati ve joint disease involving multiple joints 553092665 M15.0 Continue APAP 650 mg q 6 hrs prn, and oxycodone 5 mg q 4 hrs prnPT/OT as above.Lorna tor pain relief Coronary arteriosclerosis 11752811 I25.10 No current sxs.Contin eu meds as above.Lorna tor for sxs.F/U with cardio as planned. 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 pain, but relieved with pain meds.Ginette nue tramadol 50 mg q 6 hrs scheduled, tizanidine 2 mg q 8 hrs, APAP 650 mg TID prn and oxycodone 5-10 mg q 4 hrs prn.Contin ue Xarelto for DVT prophylaxi s x 30 days.Ginette nue knee immobilize rNeeds PT/OT for strengthen ing, balance, gait training, safety and function.M onitor incision.F /U with ortho as planned. Overactive urinary bladder 352648638 N32.81 Continue myrbetriq 50 mg qd.Monitor urinary function. Hyperlipidemia 99749220 E78.49 Continue atorvastat in 80 mg qd.Monitor labs as outpt. History of deep vein thrombosis 136888387 Z86.718 No longer on ACMonitor for sxs. Gout 76695035 M10.09 Continue allopurino l 100 mg qd and colchicine 0.6 2 tabs qd prn for flares. Monitor for sxs. Gastroesop hageal reflux disease without esophagitis 314258303 K21.9 No current sxs.Contin ue pantoprazo le 40 mg qd and tums q 4 hrs prnMonitor for sxs. Essential hypertension 96055664 I10 Good control on meds as above.Lorna tor BP and labs. [id number] JORDON MENENDEZ [address] [place] [address] [place] [address] 01/10/2021 12:10:44 01/14/2021 12:05:06 Pain in right knee 6924567677 89876 M25.561 oxycodone 5 mg q4hr prn Surgical i ncision wound of skin 5842492409 00 R23.8 monitor for any signs of infectionf /u NEOS Asthenia 17982947 R53.1 PT OT eval and treat monitor fall risk was ambulating with walker prior [id number] JORDON MENENDEZ [address] [place] [address] rd [place] [address] 01/15/2021 08:23:33 01/17/2021 15:03:46 Surgical incision wound of skin 2012909942 00 R23.8 monitor for any signs of infectionf /u NEOS Pain in right knee 81930 84749 85636 M25.561 tylenol prn Acute-on-c hronic renal failure 214928036 N18.9 monitor labsimprov ing kidney function Asthenia 75818182 R53.1 PT OT eval and treat monitor fall risk was ambulating with walker prior Chronic at rial fibrillation 795218088 I48.0 lasix 40 mg daily, 20 mg Fr/Sa/Ching metoprolol er 100 mg hs Chronic ki dney disease stage 3A 507686742 N18.31 monitor labs and urine output Congestive heart failure 36720108 I50.22 lasix 40 mg daily, 20 mg Fr/Sa/Ching monitor resp status Constipation 49331694 K5 9.09 miralax daily prncolace bid Coronary arteriosclerosis 83816543 I25.10 monitor for any symptoms Degenerati ve joint disease involving multiple joints 889202363 M15.0 Needs PT/OT for strengthen ing, balance, gait training, safety and function APAP 650 mg q6hr . Monitor pain relief Disorder o f urinary bladder 61346995 N32.9 myrbetriq 50 mg daily Essential hypertension 03372080 I10 metoprolol er 100 mg hs monitor bp Gastroesop hageal reflux disease without esophagitis 646470772 K21.9 protonix 40 mg dailytums q4 hr prn Gout 16662368 M10.09 allopurino l 100 mg daily diclofenac 1% to knees bid prn cholchecin e 0.6 2-tabs qd prnnaproxy n 500 mg bid for 5 days to 01/19 History of deep vein thrombosis 992693365 Z86.718 monitor Hyperlipidemia 29514266 E78.49 atorvastat in 80 mg daily Overactive urinary bladder 447282494 N32.81 myrbetriq 50 mg qd.monitor sxs. 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 hydration, art nut. Payers Encounter Date Sequence Insurance Name Policy Number Policy Conklin Covered Member ID Conklin Member ID Guarantor Name 12/31/2020 1 MEDICARE [place]: [facility] Margo Marvel Leoncio [id number] Margo Fang 12/31/2020 2 WPS - FOR LIFE (MEDICARE SUPPLEMENT) [place] [facility] [id number] [facility] 01/07/2021 1 MEDICARE [place]: [facility] Margo Marvel Leoncio [id number] [facility] 01/07/2021 2 WPS - FOR LIFE (MEDICARE SUPPLEMENT) Margo Leoncio [id number] [facility] 01/09/2021 1 MEDICARE B-[place]: [facility] Margo Marvel Leoncio [id number] [facility] 01/09/2021 2 WPS - FOR LIFE (MEDICARE SUPPLEMENT) Margo Leoncio [id number] [facility] 01/10/2021 1 MEDICARE [place]: [facility] Margo Marvel Leoncio [id number] [facility] 01/10/2021 2 WPS - FOR LIFE (MEDICARE SUPPLEMENT) [place] Leon[place] [id number] [facility] 01/15/2021 1 MEDICARE [place]: [facility] Margo Marvel Leoncio [id number] [facility] 01/15/2021 2 WPS - FOR LIFE (MEDICARE SUPPLEMENT) [facility] [id number] [facility] Notes Date Note Type Note Provider Name and Address Organization Details Recorded Time 12/31/2020 text/html seen today for a cute rounding visit, CAOx3 ambulating in the [facility] with PT and walker, contact guard, ambulating well, she denies any distress or discomfort, labs show JOSE CARLOS of unknown cause-possible moderate po intake, will send her to hospital for further eval LORNA SAUCEDO NP [address] [facility], [address], [place], [address], [facility] 12/31/2020 11:35:16 01/07/2021 text/html seen today for [...] cms, no nausea, ate well at breakfast, 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 Inge Rodríguez MD [address] [facility], [address], [place], [address], [facility] 01/13/2021 20:29:24 01/10/2021 text/html seen today for a cute rounding visit, CAOx3 ambulating in the PT gym, gait more steady, right knee swelling almost gone, incision healed with a couple of small scabs, good cms to leg, she assures me she is voiding well and drinking well, staff report she has been voiding LORNA SAUCEDO NP [address] [facility], [address], [place], [address], [facility] 01/10/2021 12:19:50 01/15/2021 text/html seen today for [...] cms, no nausea, ate well at breakfast, PARK LANDSCAPE ARCHITECT's aware of monitoring how many voids and charting this, she is a supervision with ambulation and walker, kidney function is slowly improving LORNA SAUCEDO NP [address] [facility], [address], [place], [address], [facility] 01/15/2021 11:11:26 OBGyn Episode No OBEpisode recorded.
--- OUTSIDE RECORDS SUMMARY | 2024-04-28 15:04 | XMS_ITS | Continuity of Care Document ---
Author Organization Wound Care Address [address] [facility], [place] [address]- Support Name Relationship Address Phone ANI PEREZ [...] BEVERLY Personal Relationship Unknown U navailable TORRES, CAHSE Personal Relationship Unknown Unav ailable [...] Unknown U navailable Care Team Providers Care Broadcast Traffic Coordinator Name Role Phone Mannie MUÑOZ, Vee Primary Care Physician Encounter [facility] [id number] Date(s): 03/21/24 - 04/26/24 Wound Care [address] [place], [place] [address] Attending Physician: Farshad Pak MD Admitting Physician: Farshad Pak MD Referring Physician: Vee Chand MD Encounter [...] virus vaccine, inactivated 3 01/21/07 Gi tobi [id number] 12y+ bivalent booster vax 01/28/22 Recorded SARS-CoV-2 (COVID-19) mRNA BNT-162b2 vac 02/04/21 Recorded SARS-CoV-2 (COVID-19) Ad26 vaccine 06/19/20 Record ed pneumococcal 13-valent vaccine 08/09/14 Given pneumococcal 13-valent vaccine 08/09/14 Given tetanus/diphtheria/pertussis, acel(Tdap) 02/12/14 Given Fluzone (oldterm) 4 12/26/13 Given pneumococcal 23-valent vaccine 05/06/13 Given Influenza Virus Vaccine (oldterm) 5 05/15/08 Given Pneumococcal Vaccine (oldterm) 6 10/29/05 Given 1Result Comment: [facility] [place] [id number] 2Result Comment: [facility] [place] [id number] 3Admin Note: VIS GIVEN 4Admin Note: [facility] VIS reviewed 5Admin Note: vis given 6Admin Note: vis given Medications Albuterol (Eqv-Ventolin HFA) 90 mcg/inh inhalation aerosol 2 puffs, Inhalation, Every 6 hours, # 8.5 Gm, 0 Refills, Maintenance, 03/11/23 9:03:00 AM EST, [facility], Partial fill upon patient request [...] 8:44:00 PM EST, Route to Pharmacy Electronically, [facility] #[facility], 157.9, cm, 12/21/23 15:16:00 EDT, Height, 72, kg, 04/15/23 22:25:00 EST, Dry Weight Start Date: 03/28/24 Status: Ordered Quantity: 45.0 Unit: tablet Repeat number: 1 atorvastatin 80 mg oral tablet 1 tablet, By Mouth, Daily at bedtime, # 90 tablet, 1 Refills, Maintenance, 04/14/24 5:32:00 PM EST, [facility] #[facility], 157.9, cm, 04/05/24 14:53:00 EST, Height, 72, kg, 04/15/23 22:25:00 EST, Dry Weight Start Date: 04/14/24 Status: Ordered Quantity: 90.0 Unit: tablet Repeat number: 1 calcitriol 0.25 mcg oral capsule 1 capsule, By Mouth, Daily, # 30 capsule, 11 Refills, Maintenance, 04/19/24 2:35:00 PM EST, [facility], 168, cm, 04/19/24 14:16:00 EST, Height, 78, kg, 04/14/24 22:55:00 EST, Dry Weight Start Date: 04/19/24 Status: Ordered Quantity: 30.0 Unit: capsule Repeat number: 12 Depends and pads Depends and pads, See Instructions, # 180 each, Refills 11, Tot. Refills 11, Maintenance, ADULT EXTRA LARGE, USE 6X QD, DX URINRY INCONTINENCE R39.81, SIM 99 VENU [phone], 02/13/22 2:43:00 PM EST, Supply Start Date: 02/13/22 Status: Ordered Quantity: 180.0 Unit: each Repeat number: 12 Indication: Unspecified urinary incontinence Doculase By Mouth, Daily, 0 Refills, Maintenance, 04/28/23 9:43:00 AM EST, Partial fill upon patient request if the prescription is for a schedule II opioid drug. Start Date: 04/28/23 Status: Ordered Repeat number: 1 Flonase Allergy Relief 50 mcg/inh nasal spray 2 sprays = 100 mcg, Nares, Both, Daily, shake well before using, # 16 Gm, 1 Refills, Maintenance, 04/05/24 3:29:00 PM EST, [place], [facility], Partial fill [...] INCONTINENCE R39.81, SIM 99 RICK AND MARIE [phone], 02/13/22 2:45:00 PM EST, Supply Start Date: 02/13/22 Status: Ordered Quantity: 300.0 Unit: each Repeat number: 12 Liquid Calcium with Vitamin D 1000 mg-10 mcg/30 mL oral liquid See Instructions, TAKE 30MLS (2 TABLESPOONS) BY MOUTH ONCE DAILY, # 2,838 Unknown, 11 Refills, Maintenance, 04/19/24 2:34:00 PM EST, [facility], 94, TAKE 30MLS (2 TABLESPOONS) BY MOUTH ONCE DAILY, 168, cm, 04/19/24 14:16:00 EST, Height, 78, kg, 04/14/24 22:55:00 EST, Dry Weight Start Date: 04/19/24 Status: Ordered Quantity: 2838.0 Unit: Unknown Repeat number: 12 loratadine 10 mg oral tablet 10 mg, 1, tablet, By Mouth, Daily, PRN, # 30 tablet, Refills 0, Tot. Refills 0, Maintenance, allergies, 06/21/23 8:38:00 AM EDT, Route to Pharmacy Electronically, [facility] #[facility], Partialfill upon patient request if [...] 11 Refills, Maintenance, 11/30/23 7:46:00 AM EDT, [facility], 157.9, cm, 10/14/23 16:09:00 EDT, [...] Quantity: 90.0 Unit: tablet Repeat number: 1 predniSONE 10 mg oral tablet See Instructions, Please take steroid taper as follows. 40 mg daily for 3 days 30 mg daily for 2 days 20 mg daily for 2 days 10mg daily for 2 days, # 24 tablet, 0 Refills, Maintenance, 04/14/24 10:34:00 PM EST, [place], [facility], Partial fill upon patient request if the prescription is for a schedule II opioid drug., 168, cm, 04/14/24 19:46:00 EST, Height, 78, kg, 04/14/24 19:46:00 EST, Dry Weight Start Date: 04/14/24 Status: Ordered Quantity: 24.0 Unit: tablet Repeat number: 1 spironolactone 25 [...] OA - Osteoarthritis of knee Confirmed Active MARCI (obstructive sleep apnea) Confirmed [...] Dr Dalal/ [facility] Social History Social History Type Response Smoking Status Former smoker; Tobac co user in household: No; Other: start age 40 quit 2013; entered on: 01/07/18 Sex Sex Representation Female (finding) Patient Care team information Care Team Personnel Name: Alejo Cadet MD Position: [facility] Physician - Gastroenterology Member Role: Lifetime Consulting Physician Address: [address] [place] [address], [address] [facility] [address] Telecom: Name: Rafita Edward MD Position: [facility] Renal MD Member Role: Lifetime Consulting Physician Address: [address] [facility] [place], [place] - Telecom: Name: Prashanth Rose RN Position: [facility] RN Member Role: Primary Care Nurse Name: Dorothea Wang RN Position: [facility] RN Member Role: Primary Care Nurse Name: Ledy Forbes RN Position: [facility] SN RN Member Role: Primary Care Nurse Name: Kavita Pagan RN Position: [facility] Onco RN Member Role: Primary Care Nurse Name: Prashanth Carmona RN Position: [facility] RN Member Role: Primary Care Nurse Name: Jaspreet Menchaca MD Position: [facility] Renal MD Member Role: Lifetime Consulting Physician Address: [address] [place] [address] [address] [facility] [place], [place] - Telecom: Name: Maryam Ayers RN Position: [facility] ED RN W/OE and Tasks Member Role: Primary Care Nurse Name: Maxine Diallo RN Position: [facility] AMB Nurse Member Role: Primary Care Nurse Name: Estephanie Carballo RN Position: [facility] RN Member Role: Primary Care Nurse Name: Odalys Chau RN Position: [facility] SN RN Member Role: Primary Care Nurse Name: Reji Willson RN Position: [facility] RN Member Role: Primary Care Nurse Name: Katie Holden RN Position: [facility] AMB Nurse Member Role: Primary Care Nurse Name: Evelyne Garcia RN Position: [facility] RN Member Role: Primary Care Nurse Name: Sol Nobles Position: [facility] AMB Nurse Member Role: Lifetime Consulting Physician Name: Johnna Baker RN Position: [facility] RN Member Role: Primary Care Nurse Name: Fantasma Ac RN Position: [facility] SN RN Member Role: Primary Care Nurse Name: Shanda Sharp RN Position: [facility] RN Member Role: Primary Care Nurse Name: Sabi Ruiz Position: [facility] rotor coil taper Member Role: Stranner Name: Vee Chand MD Position: [facility] Physician - Primary Care Member Role: PCP Address: [address] [place] [address] - [place] Telecom: Name: Cortes RN, Ta Norris Position: [facility] ED RN W/OE and Tasks Member Role: Primary Care Nurse Name: Neftaly Morley MD Position: [facility] Outreach Member Role: Lifetime Consulting Physician Address: [address] [facility] [place], [place] - Telecom: Name: Eva Camarena RN Position: [facility] [place] Office Staff Member Role: Primary Care Nurse Name: Johnna Can CNM Position: [facility] Electric Solderer Member Role: Primary Care Nurse Address: [address] [place] [address]- Telecom: Name: Brenda Brown RN Position: [facility] SN RN Member Role: Primary Care Nurse Name: David Mcwilliams MD Position: [facility] Renal MD Member Role: Lifetime Consulting Physician Address: [address] [facility] [place], [place] - Telecom: Name: Michelle Castillo RN Position: [facility] RN Member Role: Primary Care Nurse Name: Sabi Grady RN Position: [facility] RN Member Role: Primary Care Nurse Name: Sheryl Gaytan Position: [facility] RN Member Role: Primary Care Nurse Care Team Related Persons Name: ANI PEREZ Name: STEFFANY FUENTES Insurance Providers Guarantor name: BEVERLY TORRES [employer] Plan Information #: 1 Payer: MEDICARE PART B OUTPT Member Number: [id number] Policy Number: NA Group Number: NA Health Plan Information #: 2 Payer: FOR LIFE MCR A ONLY Member Number: [id number] Policy Number: NA Group Number: NA
--- NOTE | 2024-04-28 15:16 | HO.NEPHOV ---
Vital Signs 04/28/24 15:18 Height 5 ft 5 in Weight 161 lb 2 oz BMI 26.8 BP 110/60 Blood Pressure Location Rt brachial Position Sitting Intake Visit Reasons: [facility] Shift Lead Required: No Accompanied by: Daughter Allergies lisinopril [LISINOPRIL] Allergy (Severe, Verified 04/28/24 15:17) ANGIOEDEMA HPI Comments Details: Margo was seen in follow-up of her chronic kidney disease. She has medical history significant for CKD, CAD, ischemic cardiomyopathy with ICD, HFrEF, paroxysmal atrial fibrillation, HTN, T2DM, anemia, arthritis, urinary incontinence, secondary hyperparathyroidism, GERD . She has H/O JOSE CARLOS superimposed on CKD with creatinine going up to 8.0. JOSE CARLOS was thought to be 2/2 to combination of recent gastroenteritis and also patient being on diuretics ( reported to be taking double doses than prescribed.) and contrast exposure on 04/09. Her creatinine improved / stable with supportive care. She does not have any chest pain, shortness of breath, worsening pedal edema. She has no urinary symptoms. She has a renal mass and is followed by a urologist. She does not have any weight loss, hematuria, night sweats. She tries to be compliant with a low-sodium diet. Her diuretics are adjusted by cardiology. [facility] Medical History (Updated 04/28/24 @ 20:22 by Jaspreet Menchaca MD) Acute kidney injury Secondary hyperparathyroidism Essential (primary) hypertension Renal mass Chronic kidney disease, stage 3b Surgical History History of knee replacement Family History Mother Heart disease Father Lung cancer Social History Alcohol intake: never Patient Tobacco Use Status: Former Tobacco user Review of Systems Const All systems reviewed & are unremarkable except as noted in HPI and below Physical Exam Vital Signs: Last Vital Signs BP 110/60 04/28/24 15:18 BMI result Body Mass Index 26.8 Const General: comfortable and no acute distress Orientation/consciousness: patient oriented x3 HEENT Head: Yes normocephalic Mouth: Normal oral and palatal mucosa present Eyes EOM: EOMs intact bilaterally Neck Neck: Yes supple Resp Auscultation: clear to auscultation bilaterally Cardio Jugular venous distension: no JVD Rate: regular rate GI Palpation (GI): Soft to palpation Auscultation: normal bowel sounds General: Yes no CVA tenderness Back/Spine/Pelvis Back: no CVA tenderness Skin General skin exam: no rashes or lesions noted Neuro General: patient oriented x3 and moves all extremities Extrem General: Yes no pedal edema Office Meds epoetin jorge-epbx 10,000 unit/mL injection solution Performing Provider: Jaspreet Menchaca MD [facility] Administered by: Jaspreet Menchaca MD on 04/28/24 16:03 Dose Route Admin Location Dispensed Lot Number Expiration Date [facility] Block Layer 40,000 unit subcut LUE 4 mL [id number] 07/20/25 8813-7338-15 [employer] [place] Results Reviewed Nephrology Results: No Data to Display Assessment & Plan Assessment & Plan (1) Anemia in chronic kidney disease (CKD): Code(s): N18.9 - Chronic kidney disease, unspecified; D63.1 - Anemia in chronic kidney disease Category: Medical Qualifiers: Chronic kidney disease stage: stage 4 (severe) Qualified Code(s): N18.4 - Chronic kidney disease, stage 4 (severe); D63.1 - Anemia in chronic kidney disease (2) Chronic kidney disease, stage 3b: Code(s): N18.32 - Chronic kidney disease, stage 3b Category: Medical (3) Renal mass: Code(s): N28.89 - Other specified disorders of kidney and ureter Category: Medical (4) Secondary hyperparathyroidism: Code(s): N25.81 - Secondary hyperparathyroidism of renal origin Category: Medical (5) Essential (primary) hypertension: Code(s): I10 - Essential (primary) hypertension Category: Medical (6) Hypokalemia: Code(s): E87.6 - Hypokalemia Category: Medical Plan Margo has stage III B CKD at baseline. She has had JOSE CARLOS's from cardiorenal syndrome with loss of GFR. She is hemodynamically stable . Her volume status is optimal. Her diuretics are adjusted by [facility] cards. She should be on low-sodium diet. She should avoid nonsteroidal anti-inflammatory medications. Her renal functions are close baseline. I ordered K replacement and gave [id number] Units of Procrit in the office today. She will need activated Vitamin D soon. I shall explore whether she is a candidate for SGLT2 i after a 24 hour urine collection . I did not make any other medication changes today. She needs to follow-up with her urologist for her renal mass. All questions were answered Orders: Orders Creatinine 1 Month D63.1 - Anemia in chronic kidney disease, N18.32 - Chronic kidney disease, stage 3b, N18.4 - Chronic kidney disease, stage 4 (severe) Blood Urea Nitrogen 1 Month D63.1 - Anemia in chronic kidney disease, N18.32 - Chronic kidney disease, stage 3b, N18.4 - Chronic kidney disease, stage 4 (severe) AMB Epoetin Injection Practice Supplied Today D63.1 - Anemia in chronic kidney disease, N18.4 - Chronic kidney disease, stage 4 (severe) Complete Blood Count Auto Diff 1 Month D63.1 - Anemia in chronic kidney disease, N18.32 - Chronic kidney disease, stage 3b, N18.4 - Chronic kidney disease, stage 4 (severe) IRON PROFILE 1 Month D63.1 - Anemia in chronic kidney disease, N18.32 - Chronic kidney disease, stage 3b, N18.4 - Chronic kidney disease, stage 4 (severe) Electrolytes 1 Month D63.1 - Anemia in chronic kidney disease, N18.32 - Chronic kidney disease, stage 3b, N18.4 - Chronic kidney disease, stage 4 (severe) Medications: New potassium chloride ER 10 mEq PO DAILY 10 tabs 0RF Coding Level of Care Code Est Pt Level 4 (00374) Diagnoses Anemia in stage 4 chronic kidney disease N18.4; D63.1 Chronic kidney disease stage: stage 4 (severe) Chronic kidney disease, stage 3b N18.32 Renal mass N28.89 Secondary hyperparathyroidism N25.81 Essential (primary) hypertension I10 Hypokalemia E87.6
[2024-04-28 15:18] VITALS: BP 110/60; BMI 26.8
== END 2024-04-28 16:11 | disposition home or self-care (01) ==
PROVIDERS: PCP Internal Medicine; Visit Provider Internal Medicine Nephrology
DX: N18.4 Chronic kidney disease, stage 4 (severe) (principal); D63.1 Anemia in chronic kidney disease; I12.9 Hypertensive chronic kidney disease with stage 1 through stage 4 chronic kidney disease, or unspecified chronic kidney disease; N18.32 Chronic kidney disease, stage 3b; N28.89 Other specified disorders of kidney and ureter; N25.81 Secondary hyperparathyroidism of renal origin; E87.6 Hypokalemia
CPT/HCPCS: 99214

== ENCOUNTER → 2024-04-28 14:58 | Outpatient (BNVA) | payer MEDICARE, OTHER, SELFPAY | PROVIDERS: PCP Internal Medicine; Visit Provider Internal Medicine Nephrology | DX: I25.10 Atherosclerotic heart disease of native coronary artery without angina pectoris (principal); I12.9 Hypertensive chronic kidney disease with stage 1 through stage 4 chronic kidney disease, or unspecified chronic kidney disease; E11.22 Type 2 diabetes mellitus with diabetic chronic kidney disease; D63.1 Anemia in chronic kidney disease; N18.4 Chronic kidney disease, stage 4 (severe); N28.89 Other specified disorders of kidney and ureter; N25.81 Secondary hyperparathyroidism of renal origin; E87.6 Hypokalemia | CPT/HCPCS: 96372; 99212; Q5106 ==

== ENCOUNTER 2024-05-26 15:29 | Outpatient (AMB) | payer MEDICARE, OTHER, SELFPAY ==
[2024-05-26 15:32] VITALS: BP 122/62; PULSE 77; O2SAT 98; BMI 27.0
--- NOTE | 2024-05-26 15:32 | HO.NEPHOV_ITS ---
Vital Signs 05/26/24 15:32 Height 5 ft 5 in Weight 162 lb BMI 27.0 BP 122/62 Blood Pressure Location Lt brachial Position Sitting Pulse 77 Pulse Source Pulse Oximeter Pulse Oximetry (%) 98 Oxygen Delivery Method Room Air Intake Visit Reasons: Anemia in chronic kidney disease Road Oiler Required: No Accompanied by: Daughter Allergies lisinopril [LISINOPRIL] Allergy (Severe, Verified 05/26/24 15:32) ANGIOEDEMA HPI Comments Details: Margo was seen in follow-up of her chronic kidney disease. She has medical history significant for CKD, CAD, ischemic cardiomyopathy with ICD, HFrEF, paroxysmal atrial fibrillation, HTN, T2DM, anemia, arthritis, urinary incontinence, secondary hyperparathyroidism, GERD . She has H/O JOSE CARLOS superimposed on CKD with creatinine going up to 8.0. JOSE CARLOS was thought to be 2/2 to combination of recent gastroenteritis and also patient being on diuretics ( reported to be taking double doses than prescribed.) and contrast exposure on 04/09. Her creatinine improved / stable with supportive care. She does not have any chest pain, shortness of breath, worsening pedal edema. She has no urinary symptoms. She has a renal mass and is followed by a urologist. She does not have any weight loss, hematuria, night sweats. She tries to be compliant with a low-sodium diet. Her diuretics are adjusted by cardiology [facility] Medical History (Updated 04/28/24 @ 20:22 by Jaspreet Menchaca MD) Acute kidney injury Secondary hyperparathyroidism Essential (primary) hypertension Renal mass Chronic kidney disease, stage 3b Surgical History History of knee replacement Family History Mother Heart disease Father Lung cancer Social History Alcohol intake: never Patient Tobacco Use Status: Former Tobacco user Review of Systems Const All systems reviewed & are unremarkable except as noted in HPI and below Physical Exam Const General: comfortable and no acute distress Orientation/consciousness: patient oriented x3 HEENT Head: Yes normocephalic Mouth: Normal oral and palatal mucosa present Eyes EOM: EOMs intact bilaterally Neck Neck: Yes supple Resp Auscultation: clear to auscultation bilaterally Cardio Jugular venous distension: no JVD Rate: regular rate GI Palpation (GI): Soft to palpation Auscultation: normal bowel sounds Skin General skin exam: no rashes or lesions noted Neuro General: patient oriented x3 and moves all extremities Office Meds epoetin jorge-epbx 10,000 unit/mL injection solution Performing Provider: Jaspreet Menchaca MD [facility] Administered by: Jaspreet Menchaca MD on 05/26/24 15:39 Dose Route Admin Location Dispensed Lot Number Expiration Date [facility] Sexologist 40,000 unit subcut LUE 4 mL [id number] 07/20/25 3743-8645-89 [employer] [place] PHARM Results Reviewed Nephrology Results: No Data to Display Assessment & Plan Assessment & Plan (1) Anemia in chronic kidney disease (CKD): Code(s): N18.9 - Chronic kidney disease, unspecified; D63.1 - Anemia in chronic kidney disease Category: Medical Qualifiers: Chronic kidney disease stage: stage 4 (severe) Qualified Code(s): N18.4 - Chronic kidney disease, stage 4 (severe); D63.1 - Anemia in chronic kidney disease (2) Secondary hyperparathyroidism: Code(s): N25.81 - Secondary hyperparathyroidism of renal origin Category: Medical (3) Essential (primary) hypertension: Code(s): I10 - Essential (primary) hypertension Category: Medical (4) Chronic kidney disease, stage 3b: Code(s): N18.32 - Chronic kidney disease, stage 3b Category: Medical Plan Margo has stage III B CKD at baseline. She has had JOSE CARLOS's from cardiorenal syndrome with loss of GFR. She is hemodynamically stable . Her volume status is optimal. Her diuretics are adjusted by [facility] cards. She should be on low- sodium diet. She should avoid nonsteroidal anti-inflammatory medications. Her renal functions are close baseline. I ordered K replacement and gave 30051 Units of Procrit in the office today. She will need activated Vitamin D soon. I shall explore whether she is a candidate for SGLT2 i after a 24 hour urine collection . I did not make any other medication changes today. She needs to fo llow-up with her urologist for her renal mass. All questions were answered Orders: Orders IRON PROFILE 6 Weeks D63.1 - Anemia in chronic kidney disease, I10 - Essential (primary) hypertension, N18.32 - Chronic kidney disease, stage 3b, N18.4 - Chronic kidney disease, stage 4 (severe), N25.81 - Secondary hyperparathyroidism of renal origin Ferritin 6 Weeks D63.1 - Anemia in chronic kidney disease, I10 - Essential (primary) hypertension, N18.32 - Chronic kidney disease, stage 3b, N18.4 - Chronic kidney disease, stage 4 (severe), N25.81 - Secondary hyperparathyroidism of renal origin AMB Epoetin Injection Practice Supplied Today D63.1 - Anemia in chronic kidney disease, I10 - Essential (primary) hypertension, N18.32 - Chronic kidney disease, stage 3b, N18.4 - Chronic kidney disease, stage 4 (severe), N25.81 - Secondary hyperparathyroidism of renal origin Complete Blood Count Auto Diff 6 Weeks D63.1 - Anemia in chronic kidney disease, I10 - Essential (primary) hypertension, N18.32 - Chronic kidney d isease, stage 3b, N18.4 - Chronic kidney disease, stage 4 (severe), N25.81 - Secondary hyperparathyroidism of renal origin Coding Level of Care Code Est Pt Level 4 (06386) Diagnoses Anemia in stage 4 chronic kidney disease N18.4; D63.1 Chronic kidney disease stage: stage 4 (severe) Secondary hyperparathyroidism N25.81 Essential (primary) hypertension I10 Chronic kidney disease, stage 3b N18.32
--- OUTSIDE RECORDS SUMMARY | 2024-05-26 16:59 | XMS_ITS | Continuity of Care Document ---
Author Organization [facility] Adult Address [address] [place] [address]- Support Name Relationship Address Phone ANI PEREZ [...] Unknown U navailable Care Team Providers Care Dispute Specialist Name Role Phone Mannie MUÑOZ, Vee Primary [id number]17/24 [facility] [address], [place] [address] Encounter Type: Triage Allergies, Adverse Reactions, Alerts [...] virus vaccine, inactivated 3 01/21/07 Gi tobi [id number] 12y+ bivalent booster vax 01/28/22 Recorded SARS-CoV-2 (COVID-19) mRNA BNT-162b2 vac 02/04/21 Recorded SARS-CoV-2 (COVID-19) Ad26 vaccine 06/19/20 Record ed pneumococcal 13-valent vaccine 08/09/14 Given pneumococcal 13-valent vaccine 08/09/14 Given tetanus/diphtheria/pertussis, acel(Tdap) 02/12/14 Given Fluzone (oldterm) 4 12/26/13 Given pneumococcal 23-valent vaccine 05/06/13 Given Influenza Virus Vaccine (oldterm) 5 05/15/08 Given Pneumococcal Vaccine (oldterm) 6 10/29/05 Given 1Result Comment: [facility] [id number] 2Result Comment: [facility] [id number] 3Admin Note: VIS GIVEN 4Admin Note: [facility] VIS reviewed 5Admin Note: vis given 6Admin Note: vis given Medications Albuterol (Eqv-ProAir HFA) 90 mcg/inh inhalation aerosol 1 inhalation = 90 mcg, Inhalation, Every 4 hours, PRN as needed for shortness of breath or wheezing, # 6.7 Gm, 0 Refills, Maintenance, 05/06/24 9:51:00 AM EST, Aerosol, [facility], Partial fill upon patient request if the prescription is for a schedule II opioid drug., 1 inhalation Inhalation Every 4 hours,PRN:as needed for shortness of breath or wheezing, 165, cm, 05/06/24 8:21:00 EST, Height, 68.8, kg, 05/04/24 9:42:00 EST, Dry Weight Start Date: 05/06/24 Status: Ordered Quantity: 6.7 Unit: g Repeat number: 1 allopurinol 100 mg oral tablet 0.5, tablet, By Mouth, Daily, # 45 tablet, Refills 1, Maintenance, 03/28/24 8:44:00 PM EST, Route to Pharmacy Electronically, [facility], 157.9, cm, 12/21/23 15:16:00 EDT, Height, 72, kg, 04/15/23 22:25:00 EST, Dry Weight Start Date: 03/28/24 Status: Ordered Quantity: 45.0 Unit: tablet Repeat number: 1 atorvastatin 80 mg oral tablet 1 tablet, By Mouth, Daily at bedtime, # 90 tablet, 1 Refills, Maintenance, 04/14/24 5:32:00 PM EST, [facility], 157.9, cm, 04/05/24 14:53:00 EST, [...] DX URINRY INCONTINENCE R39.81, SIM 99 VENU [phone], 02/13/22 2:43:00 PM EST, Supply Start Date: 02/13/22 Status: Ordered Quantity: 180.0 Unit: each Repeat number: 12 Indication: Unspecified urinary incontinence dextromethorphan-guaifenesin 10 mg-100 mg/5 mL oral liquid 10 mL, By Mouth, Every 4 hours, PRN Cough, # 120 mL, 0 Refills, Acute 05/19/24 12:00:00 PM EST, 05/06/24 9:50:00 AM EST, Syrup, [facility], Partial fill upon patient request if the prescription is for a schedule II opioid drug., 10 mL By Mouth Every 4 hours,PRN:Cough, 165, cm, 05/06/24 8:21:00 EST, Height, 68.8, kg, 05/04/24 9:42:00 EST, Dry Weight Start Date: 05/06/24 Stop Date: 05/19/24 Status: Ordered Quantity: 120.0 Unit: mL Repeat number: 1 Flonase Allergy Relief 50 mcg/inh nasal spray 2 sprays = 100 mcg, Nares, Both, Daily, shake well before using, # 16 Gm, 1 Refills, Maintenance, 04/05/24 3:29:00 PM EST, [place], [facility], Partial fill [...] DX URINRY INCONTINENCE R39.81, SIM 99 VENU [phone], 02/13/22 2:45:00 PM EST, Supply Start Date: 02/13/22 Status: Ordered Quantity: 300.0 Unit: each Repeat number: 12 Klor-Con 10 10 mEq oral tablet, extended release 1 tablet = 10 mEq, By Mouth, Daily, # 10 tablet, 0 Refills, Maintenance, 05/04/24 3:03:00 PM EST, Partial fill upon patient request if the prescription is for a schedule II opioid drug. Start Date: 05/04/24 Stop Date: 05/14/24 Status: Ordered Quantity: 10.0 Unit: tablet Repeat number: 1 Liquid Calcium with Vitamin D 1000 mg-10 mcg/30 mL oral liquid See Instructions, TAKE 30MLS (2 TABLESPOONS) BY MOUTH ONCE DAILY, # [id number],838 Unknown, 11 Refills, Maintenance, 04/19/24 2:34:00 PM EST, [facility], 94, TAKE 30MLS (2 TABLESPOONS) [...] 8:38:00 AM EDT, Route to Pharmacy Electronically, [facility], Partialfill upon patient request if [...] Refills, Maintenance, 11/30/23 7:46:00 AM EDT, [facility], 157.9, cm, 10/14/23 16:09:00 EDT, [...] Quantity: 90.0 Unit: tablet Repeat number: 1 sodium bicarbonate 325 mg oral tablet 1 tablet = 325 mg, By Mouth, Daily, Maintenance, 05/04/24 3:03:00 PM EST, Partial fill upon patient request if the prescription is for a schedule II opioid drug. Start Date: 05/04/24 Status: Ordered Repeat number: 1 spironolactone 25 mg oral [...] number: 1 torsemide 20 mg oral tablet 1 tablet = 20 mg, By Mouth, Daily, Maintenance, 05/04/24 3:02:00 PM EST, Partial fill upon patient request if the prescription is for a schedule II opioid drug. Start Date: 05/04/24 Status: Ordered Repeat number: 1 Vitamin B12 1000 mcg oral tablet 1 [...] Dr Dalal/ [facility] Social History Social History Type Response Smoking Status Former smoker; Tobac co user in household: No; Other: start age 40 quit 2013; entered on: 01/07/18 Sex Sex Representation Female (finding) Goals Follows Medication Regime as Prescribed Start Da te:06/15/23 End Date: Status:Met Progression:Not Met Exacerbations and Complications of HF Avoided St art Date:06/15/23 End Date: Status:Met Progression:Not Met Follows Heart Failure Self-Management Plan Start Date:06/15/23 End Date: Status:Met Progression:Not Met I Will Weigh Daily, Report Gain of 2 lb/24 hr fo r 2 mos Start Date:06/15/23 End Date: Status:Met Progression:Not Met Patient Care team information Care Team Personnel Name: Alejo Cadet MD Position: [facility] Physician - Gastroenterology Member Role: Lifetime Consulting Physician Address: [address] [place] [address], [address] [facility] [place] [address]- Telecom: Name: Wagner MUÑOZ, Rafita Kilpatrick Position: [facility] Renal MD Member Role: Lifetime Consulting Physician Address: [address] [place] [address] [address] [place] [address]- Telecom: Name: Prashanth Rose RN Position: [facility] RN Member Role: Primary Care Nurse Name: Dorothea Wang RN Position: [facility] RN Member Role: Primary Care Nurse Name: Ledy Forbes RN Position: [facility] SN RN Member Role: Primary Care Nurse Name: Kavita Pagan RN Position: [facility] Onco RN Member Role: Primary Care Nurse Name: Prashanth Carmona RN Position: [facility] RN Member Role: Primary Care Nurse Name: Jaspreet Menchaca MD Position: [facility] Renal MD Member Role: Lifetime Consulting Physician Address: [address] [place] [address] [address] [place] [address]- Telecom: Name: Maryam Ayers RN Position: [facility] ED RN W/OE and Tasks Member Role: Primary Care Nurse Name: Maxine Diallo RN Position: [facility] AMB Nurse Member Role: Primary Care Nurse Name: Estephanie Carballo RN Position: [facility] RN Member Role: Primary Care Nurse Name: Odalys Chau RN Position: [facility] SN RN Member Role: Primary Care Nurse Name: Reji Willson RN Position: [facility] RN Member Role: Primary Care Nurse Name: Katie Holden RN Position: [facility] AMB Nurse Member Role: Primary Care Nurse Name: Evelyne Garcia RN Position: [facility] RN Member Role: Primary Care Nurse Name: Sol Nobles Position: [facility] AMB Nurse Member Role: Lifetime Consulting Physician Name: Johnna Baker RN Position: [facility] RN Member Role: Primary Care Nurse Name: Fantasma Ac RN Position: [facility] SN RN Member Role: Primary Care Nurse Name: Shanda Sharp RN Position: [facility] ED RN W/OE and Tasks Member Role: Primary Care Nurse Name: Sabi Ruiz Position: [facility] steward/stewardess banquet Member Role: Asphalt Screed Operator Name: Vee Chand MD Position: [facility] Physician - Primary Care Member Role: PCP Address: [address] [place] [address]- Telecom: Name: Ta Kolb RN Position: [facility] ED RN W/OE and Tasks Member Role: Primary Care Nurse Name: Neftaly Morley MD Position: [facility] Outreach Member Role: Lifetime Consulting Physician Address: [address] [facility] [address] [facility] [place] [address]- Telecom: Name: Eva Camarena RN Position: [facility] [place] Office Staff Member Role: Primary Care Nurse Name: Johnna Can CNM Position: [facility] Physics Tutor Member Role: Primary Care Nurse Address: [address] [place] [address]- [place] Telecom: Name: Brenda Brown RN Position: [facility] SN RN Member Role: Primary Care Nurse Name: David Mcwilliams MD Position: [facility] Renal MD Member Role: Lifetime Consulting Physician Address: [address] [facility] [address] [facility] [place] [address]- Telecom: Name: Michelle Castillo RN Position: [facility] RN Member Role: Primary Care Nurse Name: Sabi Grady RN Position: [facility] RN Member Role: Primary Care Nurse Name: Sheryl Gaytan Position: [facility] RN Member Role: Primary Care Nurse Name: Gonzalo Naylor RN Position: [facility] RN Member Role: Primary Care Nurse Care Team Related Persons Name: ANI PEREZ Name: STEFFANY FUENTES Insurance Providers Guarantor name: [facility] Information #: 1 Payer: MEDICARE PART B OUTPT Member Number: NA Policy Number: NA Group Number: NA Health Plan Information #: 2 Payer: FOR LIFE MCR A ONLY Member Number: NA Policy Number: NA Group Number: NA
--- OUTSIDE RECORDS SUMMARY | 2024-05-26 16:59 | XMS_ITS | Continuity of Care Document ---
[facility] Address [address] [place] [address]- Support Name Relationship Address Phone ANI PEREZ [...] Unknown U navailable Care Team Providers Care Campus Administrative Assistant Name Role Phone Mannie MUÑOZ, Vee Primary Care Physician Encounter [facility] Date(s): 04/23/24 - 05/23/24 [facility] [address] [id number] Encounter Type: Triage Allergies, Adverse Reactions, Alerts [...] virus vaccine, inactivated 3 01/21/07 Gi tobi [id number] 12y+ bivalent booster vax 01/28/22 Recorded SARS-CoV-2 (COVID-19) mRNA BNT-162b2 vac 02/04/21 Recorded SARS-CoV-2 (COVID-19) Ad26 vaccine 06/19/20 Record ed pneumococcal 13-valent vaccine 08/09/14 Given pneumococcal 13-valent vaccine 08/09/14 Given tetanus/diphtheria/pertussis, acel(Tdap) 02/12/14 Given Fluzone (oldterm) 4 12/26/13 Given pneumococcal 23-valent vaccine 05/06/13 Given Influenza Virus Vaccine (oldterm) 5 05/15/08 Given Pneumococcal Vaccine (oldterm) 6 10/29/05 Given 1Result Comment: [facility] [id number] 2Result Comment: [facility] [id number] 3Admin Note: VIS GIVEN 4Admin Note: [facility] VIS reviewed 5Admin Note: vis given 6Admin Note: vis given Medications Albuterol (Eqv-ProAir HFA) 90 mcg/inh inhalation aerosol 1 inhalation = 90 mcg, Inhalation, Every 4 hours, PRN as needed for shortness of breath or wheezing, # 6.7 Gm, 0 Refills, Maintenance, 05/06/24 9:51:00 AM EST, Aerosol, [facility], Partial fill upon patient request [...] 8:44:00 PM EST, Route to Pharmacy Electronically, [facility], 157.9, cm, 12/21/23 15:16:00 EDT, Height, 72, kg, 04/15/23 22:25:00 EST, Dry Weight Start Date: 03/28/24 Status: Ordered Quantity: 45.0 Unit: tablet Repeat number: 1 atorvastatin 80 mg oral tablet 1 tablet, By Mouth, Daily at bedtime, # 90 tablet, 1 Refills, Maintenance, 04/14/24 5:32:00 PM EST, [facility], 157.9, cm, 04/05/24 14:53:00 EST, [...] DX URINRY INCONTINENCE R39.81, SIM 99 VENU [phone], 02/13/22 2:43:00 PM EST, Supply Start Date: 02/13/22 Status: Ordered Quantity: 180.0 Unit: each Repeat number: 12 Indication: Unspecified urinary incontinence Flonase Allergy Relief 50 mcg/inh nasal spray 2 sprays = 100 mcg, Nares, Both, Daily, shake well before using, # 16 Gm, 1 Refills, Maintenance, 04/05/24 3:29:00 PM EST, [place], [facility], Partial fill [...] INCONTINENCE R39.81, SIM 99 RICK AND MARIE [phone], 02/13/22 2:45:00 PM EST, Supply Start Date: [...] 8:38:00 AM EDT, Route to Pharmacy Electronically, [facility], Partialfill upon patient request if [...] Refills, Maintenance, 11/30/23 7:46:00 AM EDT, [facility], 157.9, cm, 10/14/23 16:09:00 EDT, [...] cm stable no surgical intervwntion given co-morbidities, -[address] Dalal/ [facility] Social History Social History Type Response Smoking [...] Team Personnel Name: Alejo Cadet MD Position: [facility] Physician - Gastroenterology Member Role: Lifetime Consulting Physician Address: [address] [place] [address], [address] [facility] [place], [place] [address] Telecom: Name: Rafita Edward MD Position: [facility] Renal MD Member Role: Lifetime Consulting Physician Address: [address] [place] [address] [address] [facility] [place], [place] - Telecom: Name: Prashanth Rose RN Position: [facility] RN Member Role: Primary Care Nurse Name: Dorothea Wang RN Position: [facility] RN Member Role: Primary Care Nurse Name: Ledy Forbes RN Position: [facility] SN RN Member Role: Primary Care Nurse Name: Kavita Pagan RN Position: [facility] Onco RN Member Role: Primary Care Nurse Name: Prashanth Carmona RN Position: [facility] RN Member Role: Primary Care Nurse Name: Jaspreet Menchaca MD Position: [facility] Renal MD Member Role: Lifetime Consulting Physician Address: [address] [place] [address] [address] [facility] [place], [place] - Telecom: Name: Maryam Ayers RN Position: [facility] ED RN W/OE and Tasks Member Role: Primary Care Nurse Name: Maxine Diallo RN Position: [facility] AMB Nurse Member Role: Primary Care Nurse Name: Estephanie Carballo RN Position: [facility] RN Member Role: Primary Care Nurse Name: Odalys Chau RN Position: [facility] SN RN Member Role: Primary Care Nurse Name: Reji Willson RN Position: [facility] RN Member Role: Primary Care Nurse Name: Katie Holden RN Position: [facility] AMB Nurse Member Role: Primary Care Nurse Name: Evelyne Garcia RN Position: [facility] RN Member Role: Primary Care Nurse Name: Sol Nobles Position: [facility] AMB Nurse Member Role: Lifetime Consulting Physician Name: Johnna Baker RN Position: [facility] RN Member Role: Primary Care Nurse Name: Fantasma Ac RN Position: [facility] SN RN Member Role: Primary Care Nurse Name: Shanda Sharp RN Position: [facility] ED RN W/OE and Tasks Member Role: Primary Care Nurse Name: Sabi Ruiz Position: [facility] security nurse Member Role: Boot And Shoe Laborer Name: Vee Chand MD Position: [facility] Physician - Primary Care Member Role: PCP Address: [address] [place] [address] [address] Floor [place], [place] - Telecom: Name: Ta Kolb RN Position: [facility] ED RN W/OE and Tasks Member Role: Primary Care Nurse Name: Neftaly Morley MD Position: [facility] Outreach Member Role: Lifetime Consulting Physician Address: [address] [facility] [place] [address]- Telecom: Name: Eva Camarena RN Position: [facility] [place] Office Staff Member Role: Primary Care Nurse Name: Johnna Can CNM Position: [facility] Boiler Operator Member Role: Primary Care Nurse Address: [address] [place] [address]- Telecom: Name: Brenda Brown RN Position: [facility] SN RN Member Role: Primary Care Nurse Name: David Mcwillimas MD Position: [facility] Renal MD Member Role: Lifetime Consulting Physician Address: [address] [facility] [place] [address]- Telecom: Name: Michelle Castillo RN Position: [facility] RN Member Role: Primary Care Nurse Name: Sabi Grady RN Position: [facility] RN Member Role: Primary Care Nurse Name: Sheryl Gaytan Position: [facility] RN Member Role: Primary Care Nurse Name: Gonzalo Naylor RN Position: [facility] RN Member Role: Primary Care Nurse [...]
--- OUTSIDE RECORDS SUMMARY | 2024-05-26 16:59 | XMS_ITS | Clinical Summary ---
Author Organization [facility] Address [address] [place] [phone] Phone Care Team Providers Care Fire Alarm Operator Name Role Phone Vee Chand MD Primary Care Provider Allergies Active Allergy Reactions Criticality Noted Date Comments Lisinopril 06/07/2019 Medications acetaminophen (TYLENOL) 325 mg tablet Take 1 [...] drink = 0.6 oz pur e alcohol) Comments Unknown Sex and Gender Information Value Date Recorded Sex Assigned at Not on file Legal Sex Female 10:33 AM EST Gender Identity Not on file Sexual [...] Care Team (Late st Contact Info) Description 06/13/2024 1:45 PM EDT Office Visit [facility] Hematology Oncology [address] [place] [phone] Jose E Mckeon MD [address] [place] [address] Health Maintenance Due Date Last Done Comments DTaP,Tdap,and Td Vaccines (1 - Tdap) 11/06/1959 Pneumococcal Vaccine: 50+ Years (1 of 1 - PCV) 1990 Zoster Vaccines (1 of 2) 1990 RSV Immunization Patients 60+ Years Old (1 [...] patient's age to complete this topic Meningococcal B Vacine Aged Out No lo nger eligible based on patient's age to complete this topic RSV Immunization Patients Under 20 months Aged Out No longer eligible based on patient's age to complete this topic Varicella Vaccines Aged Out No longer eligible based on patient's age to complete this topic Procedures Procedure Name Priority Date/Time Associated Diagnosis Comments ..MISCELLANEOUS REFERENCE LAB TEST 05/23/2024 ..MISCELLANEOUS REFERENCE LAB TEST 05/23/2024 from Last 3 Months Results * Miscellaneous reference lab test (05/23/2024) Only the most recent of2 resultswithin the time period is included. us Provider Onbase MD LAB BLOOD ORDERABLES Final Re sult from Last 3 Months Insurance MEDICARE [facility] Advance Directives Documents on File Type Date Recorded Patient Duty Manager Expl anation Health Care Decision (hx) 07/15/2019 AD DAVILA DIRECTIVE Health Care Decision (hx) 06/17/2019 AD DAVILA DIRECTIVE Health Care Decision (hx) 06/08/2019 AD DAVILA DIRECTIVE Care Teams Fire Alarm Operator Relationship Specialty Start Date End Date Vee Chand MD [address] [place] [phone] PCP - General Internal Medicine 08/18/19
--- OUTSIDE RECORDS SUMMARY | 2024-05-26 16:59 | XMS_ITS | Continuity of Care Document ---
Author Organization [facility] Address [address] [facility] [address] [place] [address]- Support Name Relationship Address Phone ANI PEREZ [...] Unknown U navailable Care Team Providers Care Cane Packer Name Role Phone Mannie MUÑOZ, Vee Primary Care Physician Encounter 05/17/24 - 05/24/24 [facility] [address] [place] [address]- Attending Physician: Shaun Hussein MD Admitting Physician: Shaun Hussein MD Referring Physician: Shaun Hussein MD Encounter Type: OutPatient One Time Allergies, Adverse Reactions, Alerts Substance [...] virus vaccine, inactivated 3 01/21/07 Gi tobi [id number] 12y+ bivalent booster vax 01/28/22 Recorded SARS-CoV-2 (COVID-19) mRNA BNT-162b2 vac 02/04/21 Recorded SARS-CoV-2 (COVID-19) Ad26 vaccine 06/19/20 Record ed pneumococcal 13-valent vaccine 08/09/14 Given pneumococcal 13-valent vaccine 08/09/14 Given tetanus/diphtheria/pertussis, acel(Tdap) 02/12/14 Given Fluzone (oldterm) 4 12/26/13 Given pneumococcal 23-valent vaccine 05/06/13 Given Influenza Virus Vaccine (oldterm) 5 2/24/09 Given Pneumococcal Vaccine (oldterm) 6 10/29/05 Given 1Result Comment: [facility] [id number] 2Result Comment: [facility] [id number] 3Admin Note: VIS GIVEN 4Admin Note: CDC VIS reviewed 5Admin Note: vis given 6Admin Note: vis given Medications Albuterol (Eqv-ProAir HFA) 90 mcg/inh inhalation aerosol 1 inhalation = 90 mcg, Inhalation, Every 4 hours, PRN as needed for shortness of breath or wheezing, # 6.7 Gm, 0 Refills, Maintenance, 05/06/24 9:51:00 AM EST, Aerosol, [facility], Partial fill upon patient request [...] Pharmacy Electronically, [id number], 157.9, cm, 12/21/23 15:16:00 EDT, [...] DX URINRY INCONTINENCE R39.81, SIM 99 VENU [phone], 02/13/22 2:43:00 PM EST, Supply Start Date: 02/13/22 Status: Ordered Quantity: 180.0 Unit: each Repeat number: 12 Indication: Unspecified urinary incontinence Flonase Allergy Relief 50 mcg/inh nasal spray 2 sprays = 100 mcg, Nares, Both, Daily, shake well before using, # 16 Gm, 1 Refills, Maintenance, 04/05/24 3:29:00 PM EST, [place], [facility], Partial fill [...] DX URINRY INCONTINENCE R39.81, SIM 99 VENU [phone], 02/13/22 2:45:00 PM EST, Supply Start Date: [...] 8:38:00 AM EDT, Route to Pharmacy Electronically, [facility], Partialfill upon patient request if [...] Refills, Maintenance, 11/30/23 7:46:00 AM EDT, [facility], 157.9, cm, 10/14/23 16:09:00 EDT, [...] Dr Dalal/ [facility] Results Radiology Reports * Exam Date Time Procedure Performing Provider Status 05/17/24 11:15 AM [employer] Charles Gamez; Auth (Verified) Notes: (World[employer]) Reason For Exam: disorder of kidney and ureter unsp RESULT: [employer] Study performed at [facility] [address] [place] [address]. Reason: Follow-up right renal mass. COMPARISON: Multiple prior ultrasounds, most recently dated 04/15/2023; CT Abdomen and Pelvis04/09/2023. FINDINGS: Right kidney: 9.0 cm in length. No hydronephrosis. Increased parenchymal echogenicity with corticalthinning. No stones. Lobular exophytic predominantly solid, heterogeneously hypoechoic mass arisingfrom the lower pole measuring 5.8 x 5.0 x 4.8 cm, similar to 03/2023 (measured 5.7 x 4.8 x 5.6 cm) but gradually increasing in size from 05/2013. A rounded 2.7 x 2.5 x 2.1 cm exophytic hypoechoic component isolated for measurement along the superior aspect of this mass was not clearly demonstrated onprior ultrasounds. Left kidney: 8.6 cm in length. No hydronephrosis. Increased parenchymal echogenicity with cortical thinning. Shadowing 1.0 cm calculus in the lower pole. No suspicious mass. Simple cyst measuring 1.2x 0.8 x 1.2 cm in the upper pole. 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 A 2.7 cm rounded component along its superior aspect is not clearly demonstrated on prior ultrasounds. Nonobstructing 1.0 cm left renal calculus. No sonographically apparent right renal calculi. No hydronephrosis. Echogenic kidneys with cortical thinning suggestive of medical renal disease. WSN: [id number] Ordering Physician: Shaun Hussein Dictated By: Cari Zambrano MD Dictated Date/Time: 05/18/24 11:54 a Reviewed By: Cari Zambrano MD Signed By: Cari Zambrano MD Signed Date/Time: 05/18/24 11:54 am Transcribed By: ZAFAR Transcribed Date/Time: 05/18/24 9:30 am Social History Social History Type Response Smoking [...] Gastroenterology Member Role: Lifetime Consulting Physician Address: [address] [place] [address], [address] [facility] G[facility]enterology [address] Telecom: Name: Rafita Edward MD Position: [facility] Renal MD Member Role: Lifetime Consulting Physician Address: [address] [facility] [place], [place] - Telecom: Name: Prashanth Rose RN [facility]: [facility] MD Member Role: Lifetime Consulting Physician Address: [address] [place] [address] [address] [facility] [place], [place] - Telecom: Name: Maryam Ayers RN [facility]: [facility] [...] Nurse Name: Sabi Ruiz Position: [facility] fingerer Member Role: Touch Up Painter Name: Vee Chand MD Position: [facility] Physician - Primary Care Member Role: PCP Address: [address] [place] [address] - [place] Telecom: Name: Cortes RN, Ta Norris Position: [facility] ED RN W/OE and Tasks Member Role: Primary Care Nurse Name: Neftaly Morley MD Position: [facility] Outreach Member Role: Lifetime Consulting Physician Address: [address] [facility] [place], [place] - Telecom: Name: Eva Camarena RN Position: [facility] [place] Office Staff Member Role: Primary Care Nurse Name: Johnna Can CNM Position: [facility] Blanket Binder Member Role: Primary Care Nurse Address: [address] [place] [address]- [place] Telecom: Name: Brenda Brown RN Position: [facility] SN RN Member Role: Primary Care Nurse Name: David Mcwilliams MD Position: [facility] Renal MD Member Role: Lifetime Consulting Physician Address: [address] [facility] [place], [place] - Telecom: Name: Michelle Castillo RN Position: [facility] RN Member Role: Primary Care Nurse Name: Sabi Grady RN Position: [facility] RN Member Role: Primary Care Nurse Name: Sheryl Gaytan Position: [facility] RN Member Role: Primary Care Nurse Name: Gonzalo Naylor RN Position: [facility] RN Member Role: Primary Care Nurse Care Team Related Persons Name: ANI PEREZ Name: STEFFANY FUENTES Insurance Providers Guarantor name: BEVERLY SOUZAWIN Health Plan Information #: 2 Payer: [facility] MCR A ONLY Member Number: [id number] Policy Number: NA Group Number: NA Health Plan Information #: 1 Payer: MEDICARE PART B OUTPT Member Number: [id number] Policy Number: NA Group Number: NA
--- OUTSIDE RECORDS SUMMARY | 2024-05-26 16:59 | XMS_ITS | Clinical Summary ---
Author Organization [facility] Address [address] [place] [address] Phone Care Team Providers Care Public Health Staff Nurse Name Role Phone Vee Chand MD Primary [...] 08/07/2020 Stage 3a chronic kidney disease 08/07/2020 [id number] renal failure 12/16/2019 Acute urinary tract infection [...] 12/07/2019 08/07/2020 Atherosclerotic heart diseas e of [place] coronary artery without angina pectoris 12/07/2019 08/07/2020 [...] age to complete this topic Insurance MEDICARE [facility] MEDICARE [facility] Care Teams Public Health Staff Nurse Relationship Specialty Start Date End Date Vee Chand MD [address] [place] [address] [address] [place] [address] PCP - General Internal Medicine 08/07/20
--- OUTSIDE RECORDS SUMMARY | 2024-05-26 16:59 | XMS_ITS | Clinical Summary ---
Author Organization [facility] Address [address] [place] [address] Care Team Providers Care Jive Developer Name Role Phone Vee Chand MD Primary [...] age to complete this topic Care Teams Jive Developer Relationship Specialty Start Date End Date Vee Chand MD [address] [place] [address] PCP - General Internal Medicine 08/18/19
--- OUTSIDE RECORDS SUMMARY | 2024-05-26 16:59 | XMS_ITS | Continuity of Care Document ---
Author Organization [facility] Address [address] [place] [address]- Support Name Relationship Address Phone ANI PEREZ [...] Unknown U navailable Care Team Providers Care Design Inserter Name Role Phone Mannie MUÑOZ, Vee Primary Care Physician Encounter [facility] Date(s): 02/10/24 - 05/24/24 [facility]ocr[facility]ology [facility] Diabetes [address] [place], [place] [address] Attending Physician: Natty Aguilar MD Admitting Physician: [...] virus vaccine, inactivated 3 01/21/07 Gi tobi [id number] 12y+ bivalent booster vax 01/28/22 Recorded SARS-CoV-2 (COVID-19) mRNA BNT-162b2 vac 02/04/21 Recorded SARS-CoV-2 (COVID-19) Ad26 vaccine 06/19/20 Record ed pneumococcal 13-valent vaccine 08/09/14 Given pneumococcal 13-valent vaccine 08/09/14 Given tetanus/diphtheria/pertussis, acel(Tdap) 02/12/14 Given Fluzone (oldterm) 4 12/26/13 Given pneumococcal 23-valent vaccine 2/15/14 Given Influenza Virus Vaccine (oldterm) 5 05/15/08 Given Pneumococcal Vaccine (oldterm) 6 10/29/05 Given 1Result Comment: [facility] [id number] 2Result Comment: [facility] [id number] 3Admin Note: VIS GIVEN 4Admin Note: [facility] VIS reviewed 5Admin Note: vis given 6Admin Note: vis given Medications Albuterol (Eqv-ProAir HFA) 90 mcg/inh inhalation aerosol 1 inhalation = 90 mcg, Inhalation, Every 4 hours, PRN as needed for shortness of breath or wheezing, # 6.7 Gm, 0 Refills, Maintenance, 05/06/24 9:51:00 AM EST, Aerosol, [facility], Partial fill upon patient [...] Daily, # 30 capsule, 11 Refills, Maintenance, 1/29/25 2:35:00 PM EST, [facility], 168, cm, 04/19/24 14:16:00 EST, Height, 78, kg, 04/14/24 22:55:00 EST, Dry Weight Start Date: 04/19/24 Status: Ordered Quantity: 30.0 Unit: capsule Repeat number: 12 Depends and pads Depends and pads, See Instructions, # 180 each, Refills 11, Tot. Refills 11, Maintenance, ADULT EXTRA LARGE, USE 6X QD, DX URINRY INCONTINENCE R39.81, SIM 99 VEUN [phone], 02/13/22 2:43:00 PM EST, Supply Start Date: 02/13/22 Status: Ordered Quantity: 180.0 Unit: each Repeat number: 12 Indication: Unspecified urinary incontinence Flonase Allergy Relief 50 mcg/inh nasal spray 2 sprays = 100 mcg, Nares, Both, Daily, shake well before using, # 16 Gm, 1 Refills, Maintenance, 04/05/24 3:29:00 PM EST, [place], [facility], Partial fill [...] DX URINRY INCONTINENCE R39.81, SIM 99 RICK TRAVIS MARIE [phone], 02/13/22 2:45:00 PM EST, Supply Start Date: [...] EDT, Route to Pharmacy Electronically, [facility], Partialfill upon patient request if [...] Refills, Maintenance, 11/30/23 7:46:00 AM EDT, [facility], 157.9, cm, 10/14/23 16:09:00 EDT, [...] Dr Dalal/ [facility] Social History Social History Type Response Smoking [...] Team Personnel Name: Alejo Cadet MD Position: [facility] Physician - Gastroenterology Member Role: Lifetime Consulting Physician Address: [address] [place] [address], [address] [facility] Gastroenterology [address] Telecom: Name: Rafita Edward MD Position: [facility] Renal MD Member Role: Lifetime Consulting Physician Address: [address] [place] [address] [address] [place] [address]- Telecom: Name: Prashanth Rose RN Position: [facility] RN Member Role: Primary Care Nurse Name: Dorothea Wang RN Position: [facility] RN Member Role: Primary Care Nurse Name: Ledy Forbes RN Position: [facility] SN RN Member Role: Primary Care Nurse Name: Kavita Pagan RN Position: [facility] Onco RN Member Role: Primary Care Nurse Name: Prashanth Carmona RN Position: [facility] RN Member Role: Primary Care Nurse Name: Jaspreet Menchaca MD Position: [facility] Renal MD Member Role: Lifetime Consulting Physician Address: [address] [place] [address] [address] [facility] [place], [place] [address] Telecom: Name: Maryam Ayers RN Position: [facility] ED RN W/OE and Tasks Member Role: Primary Care Nurse Name: Maxine Diallo RN Position: [facility] AMB Nurse Member Role: Primary Care Nurse Name: Estephanie Carballo RN Position: [facility] RN Member Role: Primary Care Nurse Name: Odalys Chau RN Position: [facility] SN RN Member Role: Primary Care Nurse Name: Reji Willson RN Position: [facility] RN Member Role: Primary Care Nurse Name: Katie Holden RN Position: [facility] AMB Nurse Member Role: Primary Care Nurse Name: Evelyne Garcia RN Position: [facility] RN Member Role: Primary Care Nurse Name: Sol Nobles Position: [facility] AMB Nurse Member Role: Lifetime Consulting Physician Name: Johnna Baker RN Position: [facility] RN Member Role: Primary Care Nurse Name: Fantasma Ac RN Position: [facility] SN RN Member Role: Primary Care Nurse Name: Shanda Sharp RN Position: [facility] RN Member Role: Primary Care Nurse Name: Sabi Ruiz Position: [facility] manufacturing group leader Member Role: Assistant Professor Of Marine Biology Name: Vee Chand MD Position: [facility] Physician - Primary Care Member Role: PCP Address: [address] [place] [address] [place] [address]- Telecom: Name: Cortes RN, Ta Norris Position: [facility] ED RN W/OE and Tasks Member Role: Primary Care Nurse Name: Neftaly Morley MD Position: [facility] Outreach Member Role: Lifetime Consulting Physician Address: [address] [facility] [place], [place] - Telecom: Name: Eva Camarena RN Position: [facility] [place] Office Staff Member Role: Primary Care Nurse Name: Johnna Can CNM Position: [facility] Investor Relations Director Member Role: Primary Care Nurse Address: [address] [place] [address]- [place] Telecom: Name: Brenda Brown RN Position: [facility] SN RN Member Role: Primary Care Nurse Name: David Mcwilliams MD Position: [facility] Renal MD Member Role: Lifetime Consulting Physician Address: [address] [facility] [place] [place] - [place] Telecom: Name: Michelle Castillo RN Position: [facility] RN Member Role: Primary Care Nurse Name: Sabi Grady RN Position: [facility] RN Member Role: Primary Care Nurse Name: Sheryl Gaytan Position: [facility] RN Member Role: Primary Care Nurse Name: Gonzalo Naylor RN Position: [facility] RN Member Role: Primary Care Nurse Care Team Related Persons Name: ANI PEREZ Name: STEFFANY FUENTES Insurance Providers Guarantor name: BEVERLY TORRES Health Plan Information #: 2 Payer: [employer] MCR A ONLY Member Number: [id number] Policy Number: NA Group Number: NA Health Plan Information #: 1 Payer: MEDICARE PART B OUTPT Member Number: [id number] Policy Number: NA Group Number: NA
--- OUTSIDE RECORDS SUMMARY | 2024-05-26 17:00 | XMS_ITS | Clinical Summary ---
Author Organization Unknown Care Team Providers Care Medical Equipment Technician Name Role Phone MELODY RODRÍGUEZ MD, NEIL Unavailable Angy MANTILLA RN, ADMISSION NURSE, LONNIE Rivero able Unavailable HI NAVARRO, CLINICAL LEDGE MAN, SANAZ Hsieh available Unavailable Payers Payer Name Policy Type Policy Number Effective Date Expira tion Date MEDICARE - [facility] - PDGM [id number] Problems Condition Name Condition Details Condition Category Status Onset Date Resolution Date Last Treatment Date Treating Clinician Comments FLU DUE TO OTH IDENT INFLUENZA VIRUS W OTH RESP MANIFEST Active 03-22 00:00: 00 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 Active 03-22 00:00: 00 LACERATION W/O FOREIGN BODY, RIGHT LOWER LEG, SUBS ENCNTR Active 03-22 00:00: 00 ATHSCL HEART DISEASE OF [place] CORONARY ARTERY W/O ANG PCTRS Active 03-22 00:00: 00 UNSPECIFIED OSTEOARTHRIT IS, UNSPECIFIED SITE Active 03-22 00:00: 00 AGE-RELATED OSTEOPOROSIS 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 Active 03-22 00:00: 00 OBSTRUCTIVE SLEEP APNEA (ADULT) (PEDIATRIC) Active 03-22 00:00: 00 PURE HYPERCHOLEST EROLEMIA, UNSPECIFIED Active 03-22 00:00: 00 Oth intvrt disc [...] NICOTINE DEPENDENCE Active 03-22 00:00: 00 OTHER FLY RAISER LOCKSTITCH (CURRENT) DRUG THERAPY Active 03-22 00:00: 00 [...] 2020-03 00:00: 00 11-13 23:59 :00 No [id number] 1 tablet DAILY 1 tablet DAILY (route: oral) Med Classific ation: Gout and Hyperuric emia Therapy atorvastati n 80 mg tablet 2020-03 00:00: 00 11-13 23:59 :00 No [id number] 1 tablet DAILY 1 tablet DAILY (route: oral) Med Classific ation: Cardiovas cular Therapy Agents Colace 100 mg capsule 2020-03 00:00: 00 11-13 23:59 :00 No [id number] 1 capsule NEEDED 1 capsule NEEDED (route: oral) Med Classific ation: Gastroint estinal Therapy Agents colchicine 0.6 mg capsule 2020-03 00:00: 00 11-13 23:59 :00 No [id number] 2 capsule NEEDED 2 capsule NEEDED (route: oral) Med Classific ation: Gout and Hyperuric emia Therapy Despec-DM (phenylephr ine-DM-guai f) 5 mg-10 mg-100 mg/5 mL oral liquid 2020-03 00:00: 00 11-13 23:59 :00 No [id number] Per instruc tions NEEDED Per instructio ns NEEDED (route: oral) Med Classific ation: Respirato ry Therapy Agents Lasix 20 mg tablet 2020-03 00:00: 00 11-13 23:59 :00 No [id number] 1 tablet DAILY 1 tablet DAILY (route: oral) Med Classific ation: Cardiovas cular Therapy Agents Lasix 40 mg tablet 2020-03 00:00: 00 11-13 23:59 :00 No [id number] 1 tablet DAILY 1 tablet DAILY (route: oral) Med Classific ation: Cardiovas cular Therapy Agents melatonin 3 mg tablet 2020-03 00:00: 00 11-13 23:59 :00 No [id number] 2 tablet BEDTIME 2 tablet BEDTIME (route: oral) Med Classific ation: Central Nervous System Agents Miralax 17 gram/dose oral powder 2020-03 00:00: 00 11-13 23:59 :00 No [id number] Per instruc tions NEEDED Per instructio ns NEEDED (route: oral) Med Classific ation: Gastroint estinal Therapy Agents nystatin 100,000 unit/gram topical powder 2020-03 00:00: 00 11-13 23:59 :00 No [id number] Per instruc tions 2 TIMES DAILY Per instructio ns 2 TIMES DAILY (route: topical) Med Classific ation: Dermatolo gical Protonix 40 mg tablet,beto yed release 2020-03 00:00: 00 11-13 23:59 :00 No [id number] 1 tablet DAILY 1 tablet DAILY (route: oral) Med Classific ation: Gastroint estinal Therapy Agents Vitamin B-12 100 mcg tablet 2020-03 00:00: 00 11-13 23:59 :00 No [id number] 1 tablet DAILY 1 tablet DAILY (route: oral) Med Classific ation: Electroly te Balance-N utritiona l Products Myrbetriq 50 mg tablet,exte nded release 11-16 00:00: 00 12-31 23:59 :00 No [id number] 1 tablet DAILY 1 tablet DAILY (route: oral) Med Classific ation: Genitouri nary Therapy calcitriol 0.25 mcg capsule 11-06 00:00: 00 11-16 00:00 :00 No [id number] Per instruc tions Per instructio ns (route: oral) Med Classific ation: Electroly te Balance-N utritiona l Products calcitriol 0.25 mcg capsule 11-06 00:00: 00 04-15 23:59 :00 No [id number] Per instruc tions THREE TIMES A WEEK Per instructio ns THREE TIMES A WEEK (route: oral) Med Classific ation: Electroly te Balance-N utritiona l Products pantoprazol e 40 mg tablet,beto yed release 10-31 00:00: 00 11-16 00:00 :00 No [id number] Per instruc tions Per instructio ns (route: oral) Med Classific ation: Gastroint estinal Therapy Agents pantoprazol e 40 mg tablet,beto yed release 10-31 00:00: 00 04-15 23:59 :00 No [id number] Per instruc tions EVERY DAY Per instructio ns EVERY DAY (route: oral) Med Classific ation: Gastroint estinal Therapy Agents allopurinol 100 mg tablet 11-16 00:00: 00 04-15 23:59 :00 No [id number] .5 tablet DAILY .5 tablet DAILY (route: oral) Med Classific ation: Gout and Hyperuric emia Therapy allopurinol 100 mg tablet 10-15 00:00: 00 11-16 00:00 :00 No [id number] Per instruc tions EVERY DAY Per instructio ns EVERY DAY (route: oral) Med Classific ation: Gout and Hyperuric emia Therapy atorvastati n 80 mg tablet 10-15 00:00: 00 11-16 00:00 :00 No [id number] Per instruc tions Per instructio ns (route: oral) Med Classific ation: Cardiovas cular Therapy Agents atorvastati n 80 mg tablet 10-15 00:00: 00 11-16 00:00 :00 No [id number] Per instruc tions AT BEDTIME Per instructio ns AT BEDTIME (route: oral) Med Classific ation: Cardiovas cular Therapy Agents cephalexin 500 mg tablet 11-16 00:00: 00 12-31 23:59 :00 No [id number] 1 tablet 2 TIMES DAILY 1 tablet 2 TIMES DAILY (route: oral) Med Classific ation: Anti-Infe ctive Agents cyanocobala min (B12)-cobam amide 5,000 mcg-100 mcg sublingual tablet 11-16 00:00: 00 04-15 23:59 :00 No [id number] 1 tablet DAILY 1 tablet DAILY (route: sublingual ) Med Classific ation: Electroly te Balance-N utritiona l Products melatonin 3 mg tablet 11-16 00:00: 00 04-15 23:59 :00 No [id number] 1 tablet BEDTIME 1 tablet BEDTIME (route: oral) Med Classific ation: Central Nervous System Agents metoprolol succinate ER 100 mg tablet,exte nded release 24 hr 11-16 00:00: 00 04-15 23:59 :00 No [id number] 1 tablet DAILY 1 tablet DAILY (route: oral) Med Classific ation: Cardiovas cular Therapy Agents polyethylen e glycol 3350 17 gram oral powder packet 11-16 00:00: 00 04-15 23:59 :00 No [id number] 1 powder in packet DAILY 1 powder in packet DAILY (route: oral) Med Classific ation: Gastroint estinal Therapy Agents Senna Plus 8.6 mg-50 mg capsule 11-16 00:00: 00 04-15 23:59 :00 No [id number] 1 capsule 2 TIMES DAILY 1 capsule 2 TIMES DAILY (route: oral) Med Classific ation: Gastroint estinal Therapy Agents sodium bicarbonate 650 mg tablet 11-16 00:00: 00 12-31 23:59 :00 No [id number] 1 tablet 2 TIMES DAILY 1 tablet 2 TIMES DAILY (route: oral) Med Classific ation: Gastroint estinal Therapy Agents torsemide 20 mg tablet 11-16 00:00: 00 04-15 23:59 :00 No [id number] 1 tablet EVERY OTHER DAY 1 tablet EVERY OTHER DAY (route: oral) Med Classific ation: Cardiovas cular Therapy Agents cephalexin 500 mg tablet 12-18 00:00: 00 12-23 23:59 :00 No [id number] 500 mg 4 TIMES DAILY 500 mg 4 TIMES DAILY (route: oral) Med Classific ation: Anti-Infe ctive Agents potassium chloride 20 mEq oral packet 12-18 00:00: 00 12-23 23:59 :00 No [id number] 20 mEq DAILY 20 mEq DAILY (route: oral) Med Classific ation: Electroly te Balance-N utritiona l Products atorvastati n 80 mg tablet 2021-03 00:00: 00 04-15 23:59 :00 No [id number] 1 tablet BEDTIME 1 tablet BEDTIME (route: oral) Med Classific ation: Cardiovas cular Therapy Agents torsemide 20 mg tablet 04-07 00:00: 00 04-23 23:59 :00 No [id number] 1 tablet DAILY 1 tablet DAILY (route: oral) Med Classific ation: Cardiovas cular Therapy Agents allopurinol 100 mg tablet 04 00:00: 00 12-21 23:59 :00 No [id number] Per instruc tions EVERY DAY Per instructio ns EVERY DAY (route: oral) Med Classific ation: Gout and Hyperuric emia Therapy metoprolol succinate ER 100 mg tablet,exte nded release 24 hr 03-25 00:00: 00 12-21 23:59 :00 No [id number] Per instruc tions EVERY DAY Per instructio ns EVERY DAY (route: oral) Med Classific ation: Cardiovas cular Therapy Agents atorvastati n 80 mg tablet 04-21 00:00: 00 12-21 23:59 :00 No [id number] 1 tablet BEDTIME 1 tablet BEDTIME (route: oral) Med Classific ation: Cardiovas cular Therapy Agents calcitriol 0.25 mcg capsule 04-21 00:00: 00 12-21 23:59 :00 No [id number] 1 capsule DAILY 1 capsule DAILY (route: oral) Med Classific ation: Electroly te Balance-N utritiona l Products calcium cit 1,000 mg calcium-vit D3 10 mcg(400 unit)/30 mL oral liquid 04-21 00:00: 00 12-21 23:59 :00 No [id number] 30 mL DAILY 30 mL DAILY (route: oral) Med Classific ation: Electroly te Balance-N utritiona l Products cyanocobala min (vit B-12) 1,000 mcg tablet 04-21 00:00: 00 12-21 23:59 :00 No [id number] 1 tablet DAILY 1 tablet DAILY (route: oral) Med Classific ation: Electroly te Balance-N utritiona l Products fluticasone propionate 50 mcg/actuati on nasal spray,suspe nsion 04-21 00:00: 00 12-21 23:59 :00 No [id number] 1 spray 2 TIMES DAILY 1 spray 2 TIMES DAILY (route: nasal) Med Classific ation: Respirato ry Therapy Agents melatonin 1 mg tablet 04-21 00:00: 00 12-21 23:59 :00 No [id number] 2 tablet BEDTIME 2 tablet BEDTIME (route: oral) Med Classific ation: Central Nervous System Agents metolazone 2.5 mg tablet 04-21 00:00: 00 12-21 23:59 :00 No [id number] 0.5 tablet DAILY 0.5 tablet DAILY (route: oral) Med Classific ation: Cardiovas cular Therapy Agents Miralax 17 gram oral powder packet 04-21 00:00: 00 12-21 23:59 :00 No [id number] 17 g DAILY 17 g DAILY (route: oral) Med Classific ation: Gastroint estinal Therapy Agents Myrbetriq 50 mg tablet,exte nded release 04-21 00:00: 00 12-21 23:59 :00 No [id number] 1 tablet DAILY 1 tablet DAILY (route: oral) Med Classific ation: Genitouri nary Therapy nitroglycer in 0.4 mg sublingual tablet 04-21 00:00: 00 12-21 23:59 :00 No [id number] 1-3 tablet DAILY 1-3 tablet DAILY (route: sublingual ) Med Classific ation: Cardiovas cular Therapy Agents ondansetron HCl 4 mg tablet 04-21 00:00: 00 12-21 23:59 :00 No [id number] 1 tablet DAILY 1 tablet DAILY (route: oral) Med Classific ation: Gastroint estinal Therapy Agents pantoprazol e 40 mg tablet,beto yed release 04-21 00:00: 00 12-21 23:59 :00 No [id number] 1 tablet DAILY 1 tablet DAILY (route: oral) Med Classific ation: Gastroint estinal Therapy Agents Senna with Docusate Sodium 8.6 mg-50 mg tablet 04-21 00:00: 00 12-21 23:59 :00 No [id number] 1 tablet 2 TIMES DAILY 1 tablet 2 TIMES DAILY (route: oral) Med Classific ation: Gastroint estinal Therapy Agents spironolact one 25 mg tablet 04-21 00:00: 00 04-23 23:59 :00 No [id number] 1 tablet DAILY 1 tablet DAILY (route: oral) Med Classific ation: Cardiovas cular Therapy Agents Ventolin HFA 90 mcg/actuati on aerosol inhaler 1-31 00:00: 00 12-21 23:59 :00 No [id number] 2 puff EVERY 6 HOURS 2 puff EVERY 6 HOURS (route: inhalation ) Med Classific ation: Respirato ry Therapy Agents spironolact one 50 mg tablet 2- 00:00: 00 12-21 23:59 :00 No [id number] 1 tablet DAILY 1 tablet DAILY (route: oral) Med Classific ation: Cardiovas cular Therapy Agents torsemide 20 mg tablet 2- 00:00: 00 12-21 23:59 :00 No [id number] 2 tablet 2 TIMES DAILY 2 tablet 2 TIMES DAILY (route: oral) Med Classific ation: Cardiovas cular Therapy Agents albuterol sulfate HFA 90 mcg/actuati on aerosol inhaler 2023-03 0- 00:00: 00 Yes [id number] 2 puff EVERY 6 HOURS 2 puff EVERY 6 HOURS (route: inhalation ) Med Classific ation: Respirato ry Therapy Agents allopurinol 100 mg tablet 2023-03 0-04 00:00: 00 Yes [id number] 0.5 tablet DAILY 0.5 tablet DAILY (route: oral) Med Classific ation: Gout and Hyperuric emia Therapy atorvastati n 80 mg tablet 2023-03 0-04 00:00: 00 Yes [id number] 1 tablet BEDTIME 1 tablet BEDTIME (route: oral) Med Classific ation: Cardiovas cular Therapy Agents calcitriol 0.25 mcg capsule 2023-03 0-04 00:00: 00 Yes [id number] 1 capsule DAILY 1 capsule DAILY (route: oral) Med Classific ation: Electroly te Balance-N utritiona l Products Colace 100 mg capsule 2023-03 0-04 00:00: 00 Yes [id number] 1 capsule DAILY 1 capsule DAILY (route: oral) Med Classific ation: Gastroint estinal Therapy Agents doxycycline hyclate 100 mg tablet 2023-03 0-04 00:00: 00 01-04 23:59 :00 No [id number] 1 tablet 2 TIMES DAILY 1 tablet 2 TIMES DAILY (route: oral) Med Classific ation: Anti-Infe ctive Agents Flonase Allergy Relief 50 mcg/actuati on nasal spray,suspe nsion 2023-03 0-04 00:00: 00 Yes [id number] 1 spray DAILY 1 spray DAILY (route: nasal) Med Classific ation: Respirato ry Therapy Agents Vitamin D2 1,250 mcg (50,000 unit) capsule 2023-03 0-04 00:00: 00 Yes [id number] 1 capsule WEEKLY 1 capsule WEEKLY (route: oral) Med Classific ation: Electroly te Balance-N utritiona l Products Tylenol 8 Hour 650 mg tablet,exte nded release 2023-03 0-16 00:00: 00 Yes [id number] 1 tablet NEEDED 1 tablet NEEDED (route: oral) Med Classific ation: Analgesic , Anti-infl ammatory or Antipyret ic melatonin 3 mg capsule 2023-03 0-15 00:00: 00 Yes [id number] 2 capsule BEDTIME 2 capsule BEDTIME (route: oral) Med Classific ation: Central Nervous System Agents betamethaso ne valerate 0.1 % topical cream 2023-03 1- 00:00: 00 Yes [id number] Per instruc tions DIRECTED Per instructio ns DIRECTED (route: topical) Med Classific ation: Dermatolo gical amoxicillin 875 mg-potassiu m clavulanate 125 mg tablet - 00:00: 00 04-16 23:59 :00 No [id number] 1 tablet EVERY 12 HOURS 1 tablet EVERY 12 HOURS (route: oral) Med Classific ation: Anti-Infe ctive Agents doxycycline monohydrate 100 mg capsule - 00:00: 00 04-22 23:59 :00 No [id number] 1 capsule EVERY 12 HOURS 1 capsule EVERY 12 HOURS (route: oral) Med Classific ation: Anti-Infe ctive Agents prednisone 20 mg tablet 2- 00:00: 00 04-24 23:59 :00 No [id number] Per instruc tions DAILY Per instructio ns DAILY (route: oral) Med Classific ation: Endocrine albuterol sulfate HFA 90 mcg/actuati on aerosol inhaler 2- 00:00: 00 Yes [id number] 1 puff EVERY 4 HOURS 1 puff EVERY 4 HOURS (route: inhalation ) Med Classific ation: Respirato ry Therapy Agents Guaiasorb DM 10 mg-100 mg/5 mL oral liquid 2- 00:00: 00 Yes [id number] 10 mL DAILY 10 mL DAILY (route: oral) Med Classific ation: Respirato ry Therapy Agents Tamiflu 75 mg capsule - 00:00: 00 05-08 23:59 :00 No [id number] 1 capsule DAILY 1 capsule DAILY (route: oral) Med Classific ation: Anti-Infe ctive Agents Immunizations Ordered Immunization Name Filled Immunization Name Date Status Comments Refusal Reason COVID BOOSTER, COVID BOOSTER 2023-12-22 00:00:00 INFLUENZA, TIV (INACTIVATED) 2023-12-22 00:00:00 COVID-19, COVID-19 2023-12-16 00:00:00 INFLUENZA, TIV (INACTIVATED) 2023-12-16 00:00:00 Vital Signs Vital Name Observation Time Observation Value Commen ts Temperature 2024-05-25 08:33:00.000 98.1 [degF] Temperature 2024-05-18 09:53:00.000 97.3 [degF] Temperature 2024-05-08 15:32:00.000 97.8 [degF] Temperature 2024-04-27 10:14:00.000 98.2 [degF] BMI (%) 2024-05-08 15:32:00.000 31 kg/m2 Height 2024-05-08 15:32:00.000 60 [in_us] Pulse 2024-05-25 08:33:00.000 75 /min Pulse 2024-05-18 09:53:00.000 64 /min Pulse 2024-05-08 15:32:00.000 71 /min Pulse 2024-04-27 10:14:00.000 67 /min O2 Saturation (%) 2024-05-25 08:33:00.000 96 % O2 Saturation (%) 2024-05-18 09:53:00.000 97 % O2 Saturation (%) 2024-05-08 15:32:00.000 97 % O2 Saturation (%) 2024-04-27 10:14:00.000 96 % Respirations 2024-05-25 08:33:00.000 18 /min Respirations 2024-05-18 09:53:00.000 18 /min Respirations 2024-05-08 15:32:00.000 18 /min Respirations 2024-04-27 10:14:00.000 18 /min Weight (lbs) 2024-05-25 08:33:00.000 159 [lb_av] Weight (lbs) 2024-05-18 09:53:00.000 160 [lb_av] Weight (lbs) 2024-05-08 15:32:00.000 161 [lb_av] Weight (lbs) 2024-04-27 10:14:00.000 160 [lb_av] Systolic Blood Pressure 2024-05-25 08:33:00.000 104 mm [Hg] Systolic Blood Pressure 2024-05-18 09:53:00.000 118 mm [Hg] Systolic Blood Pressure 2024-05-08 15:32:00.000 122 mm [Hg] Systolic Blood Pressure 2024-04-27 10:14:00.000 104 mm [Hg] Diastolic Blood Pressure 2024-05-25 08:33:00.000 60 mm [Hg] Diastolic Blood Pressure 2024-05-18 09:53:00.000 62 mm [Hg] Diastolic Blood Pressure 2024-05-08 15:32:00.000 62 mm [Hg] Diastolic Blood Pressure 2024-04-27 10:14:00.000 60 mm [Hg] Plan of Treatment Planned Activity [...] RSE FOR O/A, TEACHING, AND MANAGEMENT OF HTN, CAD, HLD, CARDIOMYOPATHY. [code = SKILLED NURSE FOR O/A, TEACHING, AND MANAGEMENT OF HTN, CAD, HLD, CARDIOMYOPATHY.] Future Scheduled Test SKILLED NU RSE FOR O/A, TEACHING AND MANAGEMENT OF CKD FOR EARLY IDENTIFICATION OF EXACERBATION OF DISEASE PROCESS [code = SKILLED NURSE FOR O/A, TEACHING AND MANAGEMENT OF CKD FOR EARLY IDENTIFICATION OF EXACERBATION OF DISEASE PROCESS] Future Scheduled Test SKILLED NU RSE FOR O/A OF RESPIRATORY SYSTEM TO IDENTIFY CHANGES ASSOCIATED WITH EXACERBATION AND TO PROVIDE SKILLED TEACHING ON MANAGEMENT OF MAR[place] DISEASE PROCESS. [code = SKILLED NURSE FOR O/A OF RESPIRATORY SYSTEM TO IDENTIFY CHANGES ASSOCIATED WITH EXACERBATION AND TO PROVIDE SKILLED TEACHING ON MANAGEMENT OF MARCI DISEASE PROCESS.] Future Scheduled Test PT SELF CH ECKS BSQID AND PRN FOR SIGNS AND SYMPTOMS OF HYPO/HYPERGLYCEMIA. [code = PT SELF CHECKS BSQID AND PRN FOR SIGNS AND SYMPTOMS OF HYPO/HYPERGLYCEMIA.] [...] FIBRILLATION.] Future Scheduled Test SKILLED NU RSE FOR O/A AND SKILLED TEACHING RELATED TO ALTERED SKIN INTEGRITY L[place] BOOT [code = SKILLED NURSE FOR O/A AND SKILLED TEACHING RELATED TO ALTERED SKIN INTEGRITY L[place] BOOT] Future Scheduled Test SKILLED NU RSE FOR [...] OR TRAINED PATIENT/CAREGIVER TO OBTAIN MEASUREMENT OF THIGH IN CM DAILY AND REPORT AN INCREASE [...] OR TRAINED PATIENT/CAREGIVER TO OBTAIN MEASUREMENT OF THIGH IN CM DAILY AND REPORT AN INCREASE [...] TO SIGNS AND SYMPTOMS AND MANAGEMENT OF OA, OSTEOPOROSIS, GOUT. [code = SKILLED NURSE FOR O/A AND SKILLED TEACHING RELATED TO SIGNS AND SYMPTOMS AND MANAGEMENT OF OA, OSTEOPOROSIS, GOUT.] Future Scheduled Test PATIENT NDIAYE S A [...] MAINTAIN SITUATIONAL AWARENESS AND WILL NOTIFY CLINICAL BARBERING INSTRUCTOR AND PHYSICIAN/PROVIDER WITH ANY CHANGE IN CONDITION. [code = SKILLED NURSE TO PERFORM ENVIRONMENTAL SAFETY RISK ASSESSMENT AND FALL RISK ASSESSMENT AND PROVIDE INSTRUCTION TO IMPLEMENT ENVIRONMENTAL SAFETY AND FALL PREVENTION STRATEGIES THROUGHOUT THE CERTIFICATION PERIOD. SKILLED NURSE WILL MAINTAIN SITUATIONAL AWARENESS AND WILL NOTIFY CLINICAL BARBERING INSTRUCTOR AND PHYSICIAN/PROVIDER WITH ANY CHANGE IN CONDITION.] [...] ON MEASURES TO PREVENT PRESSURE ULCERS.] Goal Patient Goal - H EAL MY WOUND AND GET STRONGER Goal 2024-02-18 Patient Goal - G ET RID OF WALKER AND HEAL MY WOUND Goal 2024-04-20 Patient Goal - HEAL MY WOUND Goal 2024-05-08 Patient Goal - HEAL MY WOUND Goal Provider Goal - A PLAN OF CARE WILL BE ESTABLISHED THAT MEETS PATIENT'S SENIOR LIVING NEEDS AND INCLUDES PATIENT GOAL FOR HOME [...] Goal - PATIENT/CAREGIVER WILL VERBALIZE/DEMONSTRATE MANAGEMENT OF RESPIRATORY DISEASE PROCESS. CHANGES IN RESPIRATORY STATUS WILL BE IDENTIFIED AND REPORTED TO PHYSICIAN FOR PROMPT INTERVENTION THROUGHOUT THE CERTIFICATION PERIOD. Goal Provider Goal - BLOOD SUGAR READING WILL BE OBTAINED ORDERED THROUGHOUT CERTIFICATION PERIOD. Goal Provider Goal - PATIENT/CAREGIVER WILL VERBALIZE SIGNS AND SYMPTOMS OF EXACERBATION OF ENDOCRINE DIAGNOSIS TO REPORT TO NURSE/PHYSICIAN THROUGHOUT THE CERTIFICATION PERIOD. Goal Provider Goal - PATIENT/CAREGIVER WILL VERBALIZE UNDERSTANDING OF SIGNS AND SYMPTOMS, COMPLICATIONS, AND MANAGEMENT OF ATRIAL FIBRILLATION THROUGHOUT THE CERTIFICATION PERIOD. Goal Provider Goal - PATIENT/CAREGIVER WILL VERBALIZE/DEMONSTRATE UNDERSTANDING OF TEACHING RELATED TO ALTERED SKIN INTEGRITY OF CERTIFICATION PERIOD. Goal Provider Goal - [...] END OF EPISODE. Goal Provider Goal - PATIENT WILL HAVE [...] EPISODE. Progress Notes Progress Notes <paragraph>[Visit Date: 2024 by LONNIE MANTILLA RN, ADMISSION NURSE]:</paragraph><paragraph>SNV 05/25/24 1. ABNORMAL FINDINGS/SIGNIFICANT CHANGES: WEIGHT 159 PATIENT STILL WITH DRY COUGH 2. CARE COORDINATION DETAILS: NOT NEEDED 3. SKILLED PROCEDURE PERFORMED THIS VISIT: A FASTING BLOOD SUGAR OBTAINED 103 4. NEXT PHYSICIAN/PROVIDER APPT: WOUND CLINIC 06/12/24 5. PLAN/FOLLOW-UP NEEDED FOR NEXT VISIT: ASSESS SKIN VITAL SIGNS DIABETES EDUCATION ADDRESS ABOVE APPROPRIATE IN NARRATIVE BELOW: PATIENT ALERT ORIENTATEDX3, FASTING BLOOD SUGAR 103 TODAY PATIENT HAS AN APPOINTMENT TODAY AND EDUCATION ON EATING BEFORE GOING OUT AND ALSO TAKING A SNACK PROVIDED PATIENT VERBALIZED UNDERSTANDING, PATIENT'S LUNG SOUNDS CLEAR NO WHEEZING CRACKLES HOWEVER REPORTS AND SN NOTICED DRY COUGH NONPRODUCTIVE PATIENT EDUCATED ON FLUID INTAKE TO ASSIST WITH DRY COUGH. PATIENT WOUND ON HEEL ANKLE RESOLVED PATIENT HOWEVER HAS AN APPOINTMENT WITH WOUND CLINIC ON . PATIENT EDUCATED ON INHALER USAGE AND SIDE EFFECTS PATIENT VERBALIZED UNDERSTANDING PATIENT EDUCATED ON CALLING [facility] FOR ANY CONCERNS OR CHANGE IN CONDITION PATIENT VERBALIZED UNDERSTANDING. PATIENT DENIES ANY CHILLS FEVER NAUSEA VOMITING DIARRHEA PATIENT DENIES ANY SIGNS AND SYMPTOMS OF HYPO OR HYPERGLYCEMIA.</paragraph> Encounters Start Date/Time End Date/Time Encounter Type Admission Type Attending [facility] Facility Care Department Encounter ID Discharge Date Discharge Status Discharge Condition Discharge Reason Percent Goals Met 2023-12-24 00:00:00 2024-06-20 00:00:00 Outpatient FERTIFIC ATLONNIE BONILLA [facility] [id number] 17.14
--- OUTSIDE RECORDS SUMMARY | 2024-05-26 17:00 | XMS_ITS | Continuity of Care Document ---
Author Organization [facility] Adult Address [address] [place] [address]- Support Name Relationship Address Phone ANI PEREZ [...] Unknown U navailable Care Team Providers Care Time Checker Name Role Phone Mannie MUÑOZ, Vee Primary Care Physician Encounter [facility] Date(s): 03/28/24 - 04/27/24 [facility] Adult [address] [place] [address]- Encounter Type: Triage Allergies, Adverse Reactions, Alerts [...] virus vaccine, inactivated 3 01/21/07 Gi tobi [id number] 12y+ bivalent booster vax 01/28/22 Recorded SARS-CoV-2 (COVID-19) mRNA BNT-162b2 vac 02/04/21 Recorded SARS-CoV-2 (COVID-19) Ad26 vaccine 06/19/20 Record ed pneumococcal 13-valent vaccine 08/09/14 Given pneumococcal 13-valent vaccine 08/09/14 Given tetanus/diphtheria/pertussis, acel(Tdap) 02/12/14 Given Fluzone (oldterm) 4 12/26/13 Given pneumococcal 23-valent vaccine 05/06/13 Given Influenza Virus Vaccine (oldterm) 5 05/15/08 Given Pneumococcal Vaccine (oldterm) 6 10/29/05 Given 1Result Comment: [facility] [id number] 2Result Comment: [facility] [id number] 3Admin Note: VIS GIVEN 4Admin Note: [facility] VIS reviewed 5Admin Note: vis given 6Admin Note: vis given Medications Albuterol (Eqv-Ventolin HFA) 90 mcg/inh inhalation aerosol 2 puffs, Inhalation, Every 6 hours, # 8.5 Gm, 0 Refills, Maintenance, 03/11/23 9:03:00 AM EST, [facility], Partial fill upon patient request [...] EST, Route to Pharmacy Electronically, [facility], 157.9, cm, 12/21/23 15:16:00 EDT, Height, 72, kg, 04/15/23 22:25:00 EST, Dry Weight Start Date: 03/28/24 Status: Ordered Quantity: 45.0 Unit: tablet Repeat number: 1 atorvastatin 80 mg oral tablet 1 tablet, By Mouth, Daily at bedtime, # 90 tablet, 1 Refills, Maintenance, 04/14/24 5:32:00 PM EST, [facility], 157.9, cm, 04/05/24 14:53:00 EST, [...] DX URINRY INCONTINENCE R39.81, SIM 99 VENU [phone], 02/13/22 2:43:00 PM EST, Supply Start Date: [...] 1 Refills, Maintenance, 04/05/24 3:29:00 PM EST, [place], [facility], Partial fill [...] DX URINRY INCONTINENCE R39.81, SIM 99 VENU [phone], 02/13/22 2:45:00 PM EST, Supply Start Date: [...] Dr Dalal/ [facility] Social History Social History Type Response Smoking Status Former smoker; Tobac co user in household: No; Other: start age 40 quit 2013; entered on: 01/07/18 Sex Sex Representation Female (finding) Patient Care team information Care Team Personnel Name: Alejo Cadet MD Position: [facility] Physician - Gastroenterology Member Role: Lifetime Consulting Physician Address: [address] [place] [address], [address] [facility] [address] Telecom: Name: Wagner MUÑOZ, Rafita Kilpatrick Position: [facility] Renal MD Member Role: Lifetime Consulting Physician Address: [address] [place] [address] [address] [facility] [place], [place] - Telecom: Name: Prashanth Rose RN Position: [facility] RN Member Role: Primary Care Nurse Name: Dorothea Wang RN Position: [facility] RN Member Role: Primary Care Nurse Name: Ledy Forbes RN Position: [facility] SN RN Member Role: Primary Care Nurse Name: Kavita Pagan RN Position: [facility] Onco RN Member Role: Primary Care Nurse Name: Prashanth Carmona RN Position: [facility] RN Member Role: Primary Care Nurse Name: Jaspreet Menchaca MD Position: [facility] Renal MD Member Role: Lifetime Consulting Physician Address: [address] [facility] [place], [place] - Telecom: Name: Maryam Ayers RN Position: [facility] ED RN W/OE and Tasks Member Role: Primary Care Nurse Name: Maxine Diallo RN Position: [facility] AMB Nurse Member Role: Primary Care Nurse Name: Estephanie Carballo RN Position: [facility] RN Member Role: Primary Care Nurse Name: Odalys Chau RN Position: [facility] SN RN Member Role: Primary Care Nurse Name: Reji Willson RN Position: [facility] RN Member Role: Primary Care Nurse Name: Katie Holden RN Position: [facility] AMB Nurse Member Role: Primary Care Nurse Name: Evelyne Garcia RN Position: [facility] RN Member Role: Primary Care Nurse Name: Sol Nobles Position: [facility] AMB Nurse Member Role: Lifetime Consulting Physician Name: Johnna Bkaer RN Position: [facility] RN Member Role: Primary Care Nurse Name: Fantasma Ac RN Position: [facility] SN RN Member Role: Primary Care Nurse Name: Shanda Sharp RN Position: [facility] RN Member Role: Primary Care Nurse Name: Sabi Ruiz Position: [facility] atmospheric physics professor Member Role: Cigar Making Machine Supervisor Name: Vee Chand MD Position: [facility] Physician - Primary Care Member Role: PCP Address: [address] [place] [address] [address] [place] [address]- Telecom: Name: Ta Kolb RN Position: [facility] ED RN W/OE and Tasks Member Role: Primary Care Nurse Name: Neftaly Morley MD Position: [facility] Outreach Member Role: Lifetime Consulting Physician Address: [address] [facility] [place] [address]- Telecom: Name: Eva Camarena RN Position: [facility] [place] Office Staff Member Role: Primary Care Nurse Name: Johnna Can CNM Position: [facility] Machine Pie Maker Member Role: Primary Care Nurse Address: [address] [place] [address]- [place] Telecom: Name: Brenda Brown RN Position: [facility] SN RN Member Role: Primary Care Nurse Name: David Mcwilliams MD Position: [facility] Renal MD Member Role: Lifetime Consulting Physician Address: [address] [facility] [place] [address]- Telecom: Name: Michelle Castillo RN Position: [facility] RN Member Role: Primary Care Nurse Name: Sabi Grady RN Position: [facility] RN Member Role: Primary Care Nurse Name: Sheryl Gaytan Position: [facility] RN Member Role: Primary Care [...]
--- OUTSIDE RECORDS SUMMARY | 2024-05-26 17:00 | XMS_ITS | Continuity of Care Document ---
Author Organization [facility] Adult Address [address] [place] [address]- Support Name Relationship Address Phone ANI PEREZ [...] Unknown U navailable Care Team Providers Care Mixer Slagman Name Role Phone Mannie MUÑOZ, Vee Primary Care Physician Encounter [facility] ACCT R [id number] Date(s): 04/14/24 - 05/14/24 [facility] Adult [address] [place], [place] [address] Encounter Type: Triage Allergies, Adverse Reactions, [...] virus vaccine, inactivated 3 01/21/07 Gi tobi [id number] 12y+ bivalent booster vax 01/28/22 Recorded SARS-CoV-2 (COVID-19) mRNA BNT-162b2 vac 02/04/21 Recorded SARS-CoV-2 (COVID-19) Ad26 vaccine 06/19/20 Record ed pneumococcal 13-valent vaccine 08/09/14 Given pneumococcal 13-valent vaccine 08/09/14 Given tetanus/diphtheria/pertussis, acel(Tdap) 02/12/14 Given Fluzone (oldterm) 4 12/26/13 Given pneumococcal 23-valent vaccine 05/06/13 Given Influenza Virus Vaccine (oldterm) 5 05/15/08 Given Pneumococcal Vaccine (oldterm) 6 10/29/05 Given 1Result Comment: [facility] [id number] 2Result Comment: [facility] [id number] 3Admin Note: VIS GIVEN 4Admin Note: [facility] VIS reviewed 5Admin Note: vis given 6Admin Note: vis given Medications Albuterol (Eqv-ProAir HFA) 90 mcg/inh inhalation aerosol 1 inhalation = 90 mcg, Inhalation, Every 4 hours, PRN as needed for shortness of breath or wheezing, # 6.7 Gm, 0 Refills, Maintenance, 05/06/24 9:51:00 AM EST, Aerosol, [facility], Partial fill upon patient [...] EST, Route to Pharmacy Electronically, [facility], 157.9, cm, 12/21/23 15:16:00 EDT, [...] DX URINRY INCONTINENCE R39.81, SIM 99 VENU [phone], 02/13/22 2:43:00 PM EST, Supply Start Date: 02/13/22 Status: Ordered Quantity: 180.0 Unit: each Repeat number: 12 Indication: Unspecified urinary incontinence dextromethorphan-guaifenesin 10 mg-100 mg/5 mL oral liquid 10 mL, By Mouth, Every 4 hours, PRN Cough, # 120 mL, 0 Refills, Acute 05/19/24 12:00:00 PM EST, 05/06/24 9:50:00 AM EST, Syrup, [facility], Partial fill upon patient request if [...] 1 Refills, Maintenance, 04/05/24 3:29:00 PM EST, [place], [facility], Partial fill [...] DX URINRY INCONTINENCE R39.81, SIM 99 VENU [phone], 02/13/22 2:45:00 PM EST, Supply Start Date: [...] Maintenance, 04/19/24 2:34:00 PM EST, [facility], 94, TAKE 30MLS (2 TABLESPOONS) [...] 8:38:00 AM EDT, Route to Pharmacy Electronically, [facility], Partialfill upon patient request if [...] Refills, Maintenance, 11/30/23 7:46:00 AM EDT, [facility], 157.9, cm, 10/14/23 16:09:00 EDT, [...] Dr Dalal/ [facility] Social History Social History Type Response Smoking Status Former smoker; Tobac co user in household: No; Other: start age 40 quit 2013; entered on: 01/07/18 Sex Sex Representation Female (finding) Patient Care team information Care Team Personnel Name: Alejo Cadet MD Position: [facility] Physician - Gastroenterology Member Role: Lifetime Consulting Physician Address: [address], [address] [facility] [place] [address]- Telecom: Name: Rafita Edward MD Position: [facility] Renal MD Member Role: Lifetime Consulting Physician Address: [address] [place] [address] [address] [place] [address]- Telecom: Name: Prashanth Rose RN Position: [facility] RN Member Role: Primary Care Nurse Name: Dorothea Wang RN Position: [facility] RN Member Role: Primary Care Nurse Name: Ledy Forbes RN Position: [facility] SN RN Member Role: Primary Care Nurse Name: Kavita Pagan RN Position: [facility] Onco RN Member Role: Primary Care Nurse Name: Prashanth Carmona RN Position: [facility] RN Member Role: Primary Care Nurse Name: Jaspreet Menchaca MD Position: [facility] Renal MD Member Role: Lifetime Consulting Physician Address: [address] [place] [address] [address] [place] [address]- Telecom: Name: Maryam Ayers RN Position: [facility] ED RN W/OE and Tasks Member Role: Primary Care Nurse Name: Maxine Diallo RN Position: [facility] AMB Nurse Member Role: Primary Care Nurse Name: Estephanie Carballo RN Position: [facility] RN Member Role: Primary Care Nurse Name: Odalys Chau RN Position: [facility] SN RN Member Role: Primary Care Nurse Name: Reji Willson RN Position: [facility] RN Member Role: Primary Care Nurse Name: Katie Holden RN Position: [facility] AMB Nurse Member Role: Primary Care Nurse Name: Evelyne Garcia RN Position: [facility] RN Member Role: Primary Care Nurse Name: Sol Nobles Position: [facility] AMB Nurse Member Role: Lifetime Consulting Physician Name: Johnna Baker RN Position: [facility] RN Member Role: Primary Care Nurse Name: Fantasma Ac RN Position: [facility] SN RN Member Role: Primary Care Nurse Name: Shanda Sharp RN Position: [facility] ED RN W/OE and Tasks Member Role: Primary Care Nurse Name: Sabi Ruiz Position: [facility] media arts professor Member Role: Computer Aide Name: Vee Chand MD Position: [facility] Physician - Primary Care Member Role: PCP Address: [address] [facility] [address]rd [address] [facility] [place] [place] [address]- [place] Telecom: Name: Cortes RNTa Position: [facility] ED RN W/OE and Tasks Member Role: Primary Care Nurse Name: Neftaly Morley MD Position: [facility] Outreach Member Role: Lifetime Consulting Physician Address: [address] [facility] [place] [address]- [place] Telecom: Name: Eva Camarena RN Position: [facility] [place] Office Staff Member Role: Primary Care Nurse Name: Johnna Can CNM Position: [facility] Global Account Manager Member Role: Primary Care Nurse Address: [address] [place] [address]- [place] Telecom: Name: Brenda Brown RN Position: [facility] SN RN Member Role: Primary Care Nurse Name: David Mcwilliams MD Position: [facility] Renal MD Member Role: Lifetime Consulting Physician Address: [address] [facility] [place] [address]- [place] Telecom: Name: Michelle Castillo RN Position: [facility] RN Member Role: Primary Care Nurse Name: Sabi Grady RN Position: [facility] RN Member Role: Primary Care Nurse Name: Sheryl Gaytan Position: [facility] RN Member Role: Primary Care Nurse Name: Gonzalo Naylor RN Position: [facility] RN Member Role: Primary Care Nurse [...]
--- OUTSIDE RECORDS SUMMARY | 2024-05-26 17:00 | XMS_ITS | Continuity of Care Document ---
Author Organization [facility] Adult Address [address] [place] [address]- Support Name Relationship Address Phone ANI PEREZ [...] Unknown U navailable Care Team Providers Care Glue Bone Crusher Name Role Phone Mannie MUÑOZ, Vee Primary Care Physician En[place] [facility] [place] [id number] Date(s): 04/17/24 - 05/17/24 [facility] [address] [place], [place] [address] Encounter Type: Triage Allergies, Adverse Reactions, Alerts [...] virus vaccine, inactivated 3 01/21/07 Gi tobi [id number] 12y+ bivalent booster vax 01/28/22 Recorded SARS-CoV-2 (COVID-19) mRNA BNT-162b2 vac 02/04/21 Recorded SARS-CoV-2 (COVID-19) Ad26 vaccine 06/19/20 Record ed pneumococcal 13-valent vaccine 08/09/14 Given pneumococcal 13-valent vaccine 08/09/14 Given tetanus/diphtheria/pertussis, acel(Tdap) 02/12/14 Given Fluzone (oldterm) 4 12/26/13 Given pneumococcal 23-valent vaccine 05/06/13 Given Influenza Virus Vaccine (oldterm) 5 05/15/08 Given Pneumococcal Vaccine (oldterm) 6 10/29/05 Given 1Result Comment: [facility] [id number] 2Result Comment: [facility] [id number] 3Admin Note: VIS GIVEN 4Admin Note: [facility] VIS reviewed 5Admin Note: vis given 6Admin [...] EST, Route to Pharmacy Electronically, [facility], 157.9, cm, 12/21/23 15:16:00 EDT, [...] DX URINRY INCONTINENCE R39.81, SIM 99 VENU [phone], 02/13/22 2:43:00 PM EST, Supply Start Date: 02/13/22 Status: Ordered Quantity: 180.0 Unit: each Repeat number: 12 Indication: Unspecified urinary incontinence dextromethorphan-guaifenesin 10 mg-100 mg/5 mL oral liquid 10 mL, By Mouth, Every 4 hours, PRN Cough, # 120 mL, 0 Refills, Acute 05/19/24 12:00:00 PM EST, 05/06/24 9:50:00 AM EST, Syrup, [facility], Partial fill upon patient request if [...] 1 Refills, Maintenance, 04/05/24 3:29:00 PM EST, [place], [facility], Partial fill [...] DX URINRY INCONTINENCE R39.81, SIM 99 VENU [phone], 02/13/22 2:45:00 PM EST, Supply Start Date: [...] Maintenance, 04/19/24 2:34:00 PM EST, [facility], 94, TAKE 30MLS (2 TABLESPOONS) [...] 8:38:00 AM EDT, Route to Pharmacy Electronically, [facility], Partialfill upon patient request if [...] Refills, Maintenance, 11/30/23 7:46:00 AM EDT, [facility], 157.9, cm, 10/14/23 16:09:00 EDT, [...] Dr Dalal/ [facility] Social History Social History Type Response Smoking [...] Team Personnel Name: Alejo Cadet MD Position: [facility] Physician - Gastroenterology Member Role: Lifetime Consulting Physician Address: [address] [place] [address], [address] [facility] [place] [address]- Telecom: Name: Wagner MUÑOZ, Rafita Kilpatrick Position: [facility] Renal MD Member Role: Lifetime Consulting Physician Address: [address] [place] [address] [address] [place] [address]- Telecom: Name: Prashanth Rose RN Position: [facility] RN Member Role: Primary Care Nurse Name: Dorothea Wang RN Position: [facility] RN Member Role: Primary Care Nurse Name: Ledy Forbes RN Position: [facility] SN RN Member Role: Primary Care Nurse Name: Kavita Pagan RN Position: [facility] Onco RN Member Role: Primary Care Nurse Name: Prashanth Carmona RN Position: [facility] RN Member Role: Primary Care Nurse Name: Jaspreet Menchaca MD Position: [facility] Renal MD Member Role: Lifetime Consulting Physician Address: [address] [place] [address] [address] [place] [address]- Telecom: Name: Maryam Ayers RN Position: [facility] ED RN W/OE and Tasks Member Role: Primary Care Nurse Name: Maxine Diallo RN Position: [facility] AMB Nurse Member Role: Primary Care Nurse Name: Estephanie Carballo RN Position: [facility] RN Member Role: Primary Care Nurse Name: Odalys Chau RN Position: [facility] SN RN Member Role: Primary Care Nurse Name: Reji Willson RN Position: [facility] RN Member Role: Primary Care Nurse Name: Katie Holden RN Position: [facility] AMB Nurse Member Role: Primary Care Nurse Name: Evelyne Garcia RN Position: [facility] RN Member Role: Primary Care Nurse Name: Sol Nobles Position: [facility] AMB Nurse Member Role: Lifetime Consulting Physician Name: Johnna Baker RN Position: [facility] RN Member Role: Primary Care Nurse Name: Fantasma Ac RN Position: [facility] SN RN Member Role: Primary Care Nurse Name: Shanda Sharp RN Position: [facility] ED RN W/OE and Tasks Member Role: Primary Care Nurse Name: Sabi Ruiz Position: [facility] senior government program analyst Member Role: Brake Lining Driller Name: Vee Chand MD Position: [facility] Physician - Primary Care Member Role: PCP Address: [address] [place] [address]- Telecom: Name: Ta Kolb RN Position: [facility] ED RN W/OE and Tasks Member Role: Primary Care Nurse Name: Neftaly Morley MD Position: [facility] Outreach Member Role: Lifetime Consulting Physician Address: [address] [facility] [address] [facility] [place] [address]- Telecom: Name: Eva Camarena RN Position: [facility] [place] Office Staff Member Role: Primary Care Nurse Name: Johnna Can CNM Position: [facility] Exercise Teacher Member Role: Primary Care Nurse Address: [address] [place] [address]- [place] Telecom: Name: Brenda Brown RN Position: [facility] SN RN Member Role: Primary Care Nurse Name: David Mcwilliams MD Position: [facility] Renal MD Member Role: Lifetime Consulting Physician Address: [address] [facility] [address] [facility] [place] [address]- Telecom: Name: Michelle Castillo RN Position: [facility] RN Member Role: Primary Care Nurse Name: Sabi Grady RN Position: [facility] RN Member Role: Primary Care Nurse Name: Sheryl Gaytan Position: [facility] RN Member Role: Primary Care Nurse Name: Gonzalo Naylor RN Position: [facility] RN Member Role: Primary Care Nurse Care Team Related Persons Name: ANI PEREZ Name: STEFFANY FUENTES Insurance Providers Guarantor name: [facility] Information #: 1 Payer: MEDICARE PART B OUTPT Member Number: NA Policy Number: NA Group Number: NA Health Plan Information #: 2 Payer: FOR LIFE MCR A ONLY Member Number: NA Policy Number: NA Group Number: NA
--- OUTSIDE RECORDS SUMMARY | 2024-05-26 17:00 | XMS_ITS ---
Author Organization [facility] Care Team Providers Care Wheel Press Clerk Name Role Phone Mohsen Collins Unavailable Unavailable Inge Rodríguez Unavailable Unavailable Allergies and adverse reactions Code CodeSystem Substance Reaction Severity StartDate Concern Status 87540 RXNORM Lisinopril Unknown 12/07/2019 active Dilaudid Unknown 12/02/2020 active Care Team Name Role Address Phone Organization Dates Mohsen Collins PCP [address] [address], [place], [address], [place] (Office): : [facility] 01/06/2021 - 01/16/2021 Inge Rodríguez Attending Physician [address], [address], [place] (Office): [facility] 01/06/2021 - 01/16/2021 Immunizations Immunization Status Vaccine Details Vaccine Code CodeSystem Date Notes Influenza completed Influenza, split virus, trivalent, injectable, contains preservative 141 CVX created date: 01/10/2021 administere d date: 01/05/2021 Influenza completed Influenza, split virus, trivalent, injectable, contains preservative 141 CVX created date: 05/30/2020 administere d date: 12/21/2019 Influenza completed Influenza, split virus, trivalent, injectable, contains preservative Given 5.0 ml Right Deltoid intramuscularly 141 CVX created date: 12/15/2019 consent date: 12/19/2019 administere d date: 12/19/2019 TB 2 Step Mantoux Skin Test completed tuberculin skin test; unspecified formulation lotNumber: [id number] expiry: 05/19/2021 Given 0.1 ml Left Forearm intradermally Step 2 of Multi-step with next step required 98 CVX created date: 12/13/2020 consent date: 12/13/2020 administere d date: 06/08/2020 TB 2 Step Mantoux Skin Test completed tuberculin skin test; unspecified formulation lotNumber: [id number] expiry: 05/19/2021 Mfg: par Given 0.1 ml intradermally Step 1 of Multi-step with next step required 98 CVX created date: 05/31/2020 consent date: 05/31/2020 administere d date: 05/31/2020 TB 2 Step Mantoux Skin Test completed tuberculin skin test; unspecified formulation lotNumber: [id number] expiry: 08/10/2021 Mfg: PAR pharmaceutical Given 0.1 ml Left Forearm intradermally Step 1 of Multi-step 98 CVX created date: 12/13/2019 consent date: 12/13/2019 administere d date: 12/13/2019 TB 2 Step [place]oux Skin Test completed tuberculin skin test; unspecified formulation lotNumber: [id number] expiry: 08/10/2021 Mfg: sanchez offi pasteur Given 0.1 ml Left Forearm intradermally Step 1 of Multi-step 98 CVX created date: 12/09/2019 consent date: 12/08/2019 administere d date: 12/08/2019 PCV13 (Pneumococcal Conjugate)Vaccine completed pneumococcal conjugate vaccine, 13 valent 133 CVX created date: 12/15/2019 administere d date: 06/09/2014 PPSV23 (Previous Pneumococcal Polysaccharide)Va ccine completed pneumococcal polysaccharide vaccine, 23 valent 33 CVX created date: 05/30/2020 administere d date: 05/06/2013 Tdap (Tetanus, Diphtheria, Pertussis) completed tetanus toxoid, reduced diphtheria toxoid, and acellular pertussis vaccine, adsorbed 115 CVX created date: 05/30/2020 administere d date: 02/12/2014 SARS-COV-2 (COVID-19) completed SARS-COV-2 (COVID-19) vaccine, mRNA, spike protein, LNP, preservative free, 100 mcg/0.5mL dose or 50 mcg/0.25mL dose Mfg: Kris [employer] Kris Given intramuscularly Step 1 of Multi-step 207 CVX created date: 12/02/2020 administere d date: 06/18/2020 Mental Status Section Date Assessment Total Score Description 01/16/2021 BIMS 11 moderate cognit sarah impairment CAM 0 No delirium ind icated PHQ-9 02 minimal depress ion 01/12/2021 BIMS 11 moderate cognit sarah impairment CAM 0 No delirium ind icated PHQ-9 05 mild depression Problems Problem # Description Date of onset Resolved Date Code CodeSystem Concern Status 1 MALIGNANT NEOPLASM OF UNSPECIFIED KIDNEY, EXCEPT RENAL PELVIS 01/07/[address] active 2 OTHER LACK OF COORDINATION 01/07/[address] active 3 AFTERCARE FOLLOWING JOINT REPLACEMENT SURGERY 12/11/[address] active 4 DIFFICULTY IN WALKING, NOT ELSEWHERE CLASSIFIED 12/11/1901/06/[address] completed 5 MUSCLE WASTING AND ATROPHY, NOT ELSEWHERE CLASSIFIED, LEFT LOWER LEG 12/11/19 21 01/06/[address] completed 6 MUSCLE WASTING AND ATROPHY, NOT ELSEWHERE CLASSIFIED, RIGHT LOWER LEG 12/11/1901/06/[address] completed 7 MUSCLE WASTING AND ATROPHY, NOT ELSEWHERE CLASSIFIED, RIGHT THIGH 12/11/1901/06/[address] completed 8 AFTERCARE FOLLOWING JOINT REPLACEMENT SURGERY 12/03/19 21 12/05/[address] completed 9 UNILATERAL PRIMARY OSTEOARTHRITIS, LEFT KNEE 12/03/[address] active 10 AFTERCARE FOLLOWING JOINT REPLACEMENT SURGERY 05/31/19 21 12/02/[address] completed 11 DYSPHAGIA, OROPHARYNGEAL PHASE 05/31/1912/02/[address] completed 12 ENCOUNTER FOR OTHER ORTHOPEDIC AFTERCARE 05/31/1912/02/[address] completed 13 GASTRO-ESOPHAGEAL REFLUX DISEASE WITHOUT ESOPHAGITIS 05/31/[address] active 14 PAIN IN LEFT KNEE 05/31/19 21 12/02/[address] completed 15 PRESENCE OF LEFT ARTIFICIAL KNEE JOINT 05/31/19 21 12/02/[address] completed 16 UNILATERAL PRIMARY OSTEOARTHRITIS, LEFT KNEE 05/31/19 21 12/02/[address] completed 17 UNSTEADINESS ON FEET 05/31/19 21 12/02/[address] completed 18 MUSCLE WASTING AND ATROPHY, NOT ELSEWHERE CLASSIFIED, LEFT LOWER LEG 04/23/19 21 12/02/[address] completed 19 LOCALIZED EDEMA 04/17/19 21 12/02/[address] completed 20 MUSCLE WASTING AND ATROPHY, NOT ELSEWHERE CLASSIFIED, RIGHT LOWER LEG 04/17/19 21 12/02/[address] completed 21 OBESITY, UNSPECIFIED 04/17/19 21 12/02/[address] completed 22 OTHER ENCEPHALOPATHY 04/17/19 21 12/02/[address] completed 23 OTHER INTERVERTEBRAL DISC DEGENERATION, LUMBAR REGION 04/17/[address] active 24 OTHER REDUCED MOBILITY 04/17/19 21 12/02/[address] completed 25 PAROXYSMAL ATRIAL FIBRILLATION 04/17/[address] active 26 PERSONAL HISTORY OF COLONIC POLYPS 04/17/19 21 12/02/[address] completed 27 PRESENCE OF AUTOMATIC (IMPLANTABLE) CARDIAC DEFIBRILLATOR 04/17/[address] active 28 TYPE 2 DIABETES MELLITUS WITHOUT COMPLICATIONS 04/17/[address] active 29 UNSPECIFIED OSTEOARTHRITIS, UNSPECIFIED SITE 04/17/19 21 12/02/[address] completed 30 CHRONIC KIDNEY DISEASE, STAGE 3 UNSPECIFIED 12/21/[address] active 31 ACUTE KIDNEY FAILURE, UNSPECIFIED 12/07/19 20 04/17/[address] completed 32 ACUTE ON CHRONIC DIASTOLIC (CONGESTIVE) HEART FAILURE 09/04/17/[address] completed 33 ANEMIA, UNSPECIFIED 12/07/[address] active 34 ATHEROSCLEROTIC HEART DISEASE OF [place] CORONARY ARTERY WITHOUT ANGINA PECTORIS 12/07/[address] active 35 CHRONIC KIDNEY DISEASE, STAGE 3 (MODERATE) 12/07/1912/21/[address] completed 36 DIFFICULTY IN WALKING, NOT ELSEWHERE CLASSIFIED 12/07/1904/17/[address] completed 37 DYSPHAGIA, OROPHARYNGEAL PHASE 12/07/1904/17/[address] completed 38 ESSENTIAL (PRIMARY) HYPERTENSION 12/07/[address] active 39 GOUT, UNSPECIFIED 12/07/[address] active 40 HYPERKALEMIA 12/07/1912/02/[address] completed 41 HYPERLIPIDEMIA, UNSPECIFIED 12/07/[address] active 42 ISCHEMIC CARDIOMYOPATHY 12/07/[address] active 43 MALIGNANT NEOPLASM OF UNSPECIFIED KIDNEY, EXCEPT RENAL PELVIS 12/07/1901/06/[address] completed 44 NEUROMUSCULAR DYSFUNCTION OF [place], UNSPECIFIED 12/07/1912/02/[address] completed 45 OLD MYOCARDIAL INFARCTION 12/07/[address] active 46 OTHER MALAISE 12/07/1904/17/[address] completed 47 OTHER SPECIFIED DISORDERS OF [place] 12/07/1904/17/[address] completed 48 OTHER SPECIFIED DISORDERS OF KIDNEY AND URETER 12/07/1912/02/[address] completed 49 PAIN IN LEFT KNEE 12/07/1904/17/[address] completed 50 PERSONAL HISTORY OF OTHER DISEASES OF THE DIGESTIVE SYSTEM 12/07/1904/17/[address] completed 51 SLEEP APNEA, UNSPECIFIED 12/07/[address] active 52 UNSPECIFIED COMBINED SYSTOLIC (CONGESTIVE) AND DIASTOLIC (CONGESTIVE) HEART FAILURE 12/07/[address] active 53 UNSTEADINESS ON FEET 12/07/1904/17/[address] completed 54 URINARY TRACT INFECTION, SITE NOT SPECIFIED 12/07/1904/17/[address] completed Reason for Referral No Reasons for Referral Entered Social History Social History Observation Description Start Date End Date Code Code System Current Smoking Status Tobacco smoking consumption unknown 257595908 SNOMED CT Sex Assigned At Female 1940 18317-5 [facility] Vital Signs Code Code System Vitals Name Values and Units Timing Information 96514-9 [facility] Pain Level Value=0.0 01/16/2021 2339-0 [facility] Blood Sugar Husvg=295.0 Units=mg/dL 01/16/2021 8462-4 [facility] Blood Pressure-Diastolic Value=67 Un its=mmHg 01/15/2021 8480-6 [facility] Blood Pressure-Systolic Vfmcb=650 Un its=mmHg 01/15/2021 8867-4 [facility] Heart rate Value=92.0 Units=/min 9279-1 [facility] Respiratory Rate Value=16.0 Units=/m in 01/15/2021 8310-5 [facility] Body Temperature Value=97.9 Units=?? F 01/15/2021 52695-3 [facility] O2 % BldC Oximetry Value=96.0 Units= % 01/15/2021 96836-2 [facility] Weight Hqveq=698.4 Units=Lbs 8302-2 [facility] Height Value=64.0 Units=Inches 05/30/2020
--- OUTSIDE RECORDS SUMMARY | 2024-05-26 17:00 | XMS_ITS | Continuity of Care Document ---
Author Organization [facility] Address [address] [place] [address]- Support Name Relationship Address Phone ANI PEREZ [...] Unknown U navailable Care Team Providers Care Molding Utility Worker Name Role Phone Mannie MUÑOZ, Vee Primary Care Physician [place] [facility] [id number] Date(s): 04/14/24 - 05/14/24 [facility] [address] [place], [place] [address] Encounter Type: Triage Allergies, Adverse Reactions, [...] virus vaccine, inactivated 3 01/21/07 Gi tobi [id number] 12y+ bivalent booster vax 01/28/22 Recorded SARS-CoV-2 (COVID-19) mRNA BNT-162b2 vac 02/04/21 Recorded SARS-CoV-2 (COVID-19) Ad26 vaccine 06/19/20 Record ed pneumococcal 13-valent vaccine 08/09/14 Given pneumococcal 13-valent vaccine 08/09/14 Given tetanus/diphtheria/pertussis, acel(Tdap) 02/12/14 Given Fluzone (oldterm) 4 12/26/13 Given pneumococcal 23-valent vaccine 05/06/13 Given Influenza Virus Vaccine (oldterm) 5 05/15/08 Given Pneumococcal Vaccine (oldterm) 6 10/29/05 Given 1Result Comment: [facility] [id number] 2Result Comment: [facility] [id number] 3Admin Note: VIS GIVEN 4Admin Note: [facility] VIS reviewed 5Admin Note: vis given 6Admin Note: vis given Medications Albuterol (Eqv-ProAir HFA) 90 mcg/inh inhalation aerosol 1 inhalation = 90 mcg, Inhalation, Every 4 hours, PRN as needed for shortness of breath or wheezing, # 6.7 Gm, 0 Refills, Maintenance, 05/06/24 9:51:00 AM EST, Aerosol, [facility], Partial fill upon patient [...] EST, Route to Pharmacy Electronically, [id number], 157.9, cm, 12/21/23 15:16:00 EDT, [...] DX URINRY INCONTINENCE R39.81, SIM 99 VENU [phone], 02/13/22 2:43:00 PM EST, Supply Start Date: 02/13/22 Status: Ordered Quantity: 180.0 Unit: each Repeat number: 12 Indication: Unspecified urinary incontinence dextromethorphan-guaifenesin 10 mg-100 mg/5 mL oral liquid 10 mL, By Mouth, Every 4 hours, PRN Cough, # 120 mL, 0 Refills, Acute 05/19/24 12:00:00 PM EST, 05/06/24 9:50:00 AM EST, Syrup, [facility], Partial fill upon patient request if [...] 1 Refills, Maintenance, 04/05/24 3:29:00 PM EST, [place], [id number], Partial fill [...] DX URINRY INCONTINENCE R39.81, SIM 99 VENU [phone], 02/13/22 2:45:00 PM EST, Supply Start Date: [...] Maintenance, 04/19/24 2:34:00 PM EST, [facility], 94, TAKE 30MLS (2 TABLESPOONS) [...] 8:38:00 AM EDT, Route to Pharmacy Electronically, [facility], Partialfill upon patient request if [...] Refills, Maintenance, 11/30/23 7:46:00 AM EDT, [facility], 157.9, cm, 10/14/23 16:09:00 EDT, [...] Dr Dalal/ [facility] Social History Social History Type Response Smoking Status Former smoker; Tobac co user in household: No; Other: start age 40 quit 2013; entered on: 01/07/18 Sex Sex Representation Female (finding) Patient Care team information Care Team Personnel Name: Alejo Cadet MD Position: [facility] Physician - Gastroenterology Member Role: Lifetime Consulting Physician Address: [address], [address] [facility] [place] [address]- Telecom: Name: Rafita Edward MD Position: [facility] Renal MD Member Role: Lifetime Consulting Physician Address: [address] [place] [address] [address] [place] [address]- Telecom: Name: Prashanth Rose RN Position: [facility] RN Member Role: Primary Care Nurse Name: Dorothea Wang RN Position: [facility] RN Member Role: Primary Care Nurse Name: Ledy Forbes RN Position: [facility] SN RN Member Role: Primary Care Nurse Name: Kavita Pagan RN Position: [facility] Onco RN Member Role: Primary Care Nurse Name: Prashanth Carmona RN Position: [facility] RN Member Role: Primary Care Nurse Name: Jaspreet Menchaca MD Position: [facility] Renal MD Member Role: Lifetime Consulting Physician Address: [address] [place] [address] [address] [facility] [address]- Telecom: Name: Maryam Ayers RN Position: [facility] ED RN W/OE and Tasks Member Role: Primary Care Nurse Name: Maxine Diallo RN Position: [facility] AMB Nurse Member Role: Primary Care Nurse Name: Estephanie Carballo RN Position: [facility] RN Member Role: Primary Care Nurse Name: Odalys Chau RN Position: [facility] SN RN Member Role: Primary Care Nurse Name: Reji Willson RN Position: [facility] RN Member Role: Primary Care Nurse Name: Katie Holden RN Position: [facility] AMB Nurse Member Role: Primary Care Nurse Name: Evelyne Garcia RN Position: [facility] RN Member Role: Primary Care Nurse Name: Sol Nobles Position: [facility] AMB Nurse Member Role: Lifetime Consulting Physician Name: Johnna Baker RN Position: [facility] RN Member Role: Primary Care Nurse Name: Fantasma Ac RN Position: [facility] SN RN Member Role: Primary Care Nurse Name: Shanda Sharp RN Position: [facility] ED RN W/OE and Tasks Member Role: Primary Care Nurse Name: Sabi Ruiz Position: [facility] knot borer Member Role: Appeals Writer Name: Vee Chand MD Position: [facility] Physician - Primary Care Member Role: PCP Address: [address] [facility] 3rd Floor [facility] [place] [address]- [place] Telecom: Name: Cortes RNTa Position: [facility] ED RN W/OE and Tasks Member Role: Primary Care Nurse Name: Neftaly Morley MD Position: [facility] Outreach Member Role: Lifetime Consulting Physician Address: [address] [facility] [place] [address]- [place] Telecom: Name: Eva Camarena RN Position: [facility] [place] Office Staff Member Role: Primary Care Nurse Name: Johnna Can CNM Position: [facility] State Tested Nursing Assistant Member Role: Primary Care Nurse Address: [address] [place] [address]- [place] Telecom: Name: Brenda Brown RN Position: [facility] SN RN Member Role: Primary Care Nurse Name: David Mcwilliams MD Position: [facility] Renal MD Member Role: Lifetime Consulting Physician Address: [address] [facility] [place] [address]- [place] Telecom: Name: Michelle Castillo RN Position: [facility] RN Member Role: Primary Care Nurse Name: Sabi Grady RN Position: [facility] RN Member Role: Primary Care Nurse Name: Sheryl Gaytan Position: [facility] RN Member Role: Primary Care Nurse Name: Gonzalo Naylor RN Position: [facility] RN Member Role: Primary Care [...]
--- OUTSIDE RECORDS SUMMARY | 2024-05-26 17:00 | XMS_ITS | Continuity of Care Document ---
Author Organization [facility] Address [address] [place] [address]- Support Name Relationship Address Phone ANI PEREZ [...] TORRES, BEVERLY Personal Relationship Unknown U navailable BIRAN, CHASE Personal Relationship Unknown Unav ailable TORRES, CHASE Personal Relationship Unknown Unav ailable TORRES, CHASE Personal Relationship Unknown Unav ailable TORRES, BEVERLY Personal Relationship Unknown U navailable Care Team Providers Care Apprentice Cook Name Role Phone Mannie MUÑOZ, Vee Primary Care Physician Encounter [facility] [place] [id number] Date(s): 04/17/24 - 05/17/24 [facility] [address] [place], [place] [address] Encounter Type: Triage Allergies, Adverse Reactions, [...] virus vaccine, inactivated 3 01/21/07 Gi tobi [id number] 12y+ bivalent booster vax 01/28/22 Recorded SARS-CoV-2 (COVID-19) mRNA BNT-162b2 vac 02/04/21 Recorded SARS-CoV-2 (COVID-19) Ad26 vaccine 06/19/20 Record ed pneumococcal 13-valent vaccine 08/09/14 Given pneumococcal 13-valent vaccine 08/09/14 Given tetanus/diphtheria/pertussis, acel(Tdap) 02/12/14 Given Fluzone (oldterm) 4 12/26/13 Given pneumococcal 23-valent vaccine 05/06/13 Given Influenza Virus Vaccine (oldterm) 5 05/15/08 Given Pneumococcal Vaccine (oldterm) 6 10/29/05 Given 1Result Comment: [facility] 71035-390-86 2Result Comment: [facility] [id number] 3Admin Note: VIS GIVEN 4Admin Note: [facility] [place]NOTE 2] VIS reviewed 5Admin Note: vis given 6Admin Note: vis given Medications Albuterol (Eqv-ProAir HFA) 90 mcg/inh inhalation aerosol 1 inhalation = 90 mcg, Inhalation, Every 4 hours, PRN as needed for shortness of breath or wheezing, # 6.7 Gm, 0 Refills, Maintenance, 05/06/24 9:51:00 AM EST, Aerosol, [facility], Partial fill upon [...] EST, Route to Pharmacy Electronically, [facility], 157.9, cm, 12/21/23 15:16:00 EDT, [...] DX URINRY INCONTINENCE R39.81, SIM 99 VENU [phone], 02/13/22 2:43:00 PM EST, Supply Start Date: 02/13/22 Status: Ordered Quantity: 180.0 Unit: each Repeat number: 12 Indication: Unspecified urinary incontinence dextromethorphan-guaifenesin 10 mg-100 mg/5 mL oral liquid 10 mL, By Mouth, Every 4 hours, PRN Cough, # 120 mL, 0 Refills, Acute 05/19/24 12:00:00 PM EST, 05/06/24 9:50:00 AM EST, Syrup, [facility], Partial fill upon patient request if [...] 1 Refills, Maintenance, 04/05/24 3:29:00 PM EST, [place], [facility], Partial fill [...] DX URINRY INCONTINENCE R39.81, SIM 99 VENU [phone], 02/13/22 2:45:00 PM EST, Supply Start Date: [...] Maintenance, 04/19/24 2:34:00 PM EST, [facility], 94, TAKE 30MLS (2 TABLESPOONS) [...] 8:38:00 AM EDT, Route to Pharmacy Electronically, [facility], Partialfill upon patient request if [...] Refills, Maintenance, 11/30/23 7:46:00 AM EDT, [facility], 157.9, cm, 10/14/23 16:09:00 EDT, [...] Dr Dalal/ [facility] Social History Social History Type Response Smoking [...] Team Personnel Name: Alejo Cadet MD Position: [facility] Physician - Gastroenterology Member Role: Lifetime Consulting Physician Address: [address] [place] [address], [address] [facility] [place] [address]- Telecom: Name: Wagner MUÑOZ, Rafita Kilpatrick Position: [facility] Renal MD Member Role: Lifetime Consulting Physician Address: [address] [place] [address] [address] [place] [address]- Telecom: Name: Prashanth Rose RN Position: [facility] RN Member Role: Primary Care Nurse Name: Dorothea Wang RN Position: [facility] RN Member Role: Primary Care Nurse Name: Ledy Forbes RN Position: [facility] SN RN Member Role: Primary Care Nurse Name: Kavita Pagan RN Position: [facility] Onco RN Member Role: Primary Care Nurse Name: Prashanth Carmona RN Position: [facility] RN Member Role: Primary Care Nurse Name: Jaspreet Menchaca MD Position: [facility] Renal MD Member Role: Lifetime Consulting Physician Address: [address] [place] [address] [address] [place] [address]- Telecom: Name: Maryam Ayers RN Position: [facility] ED RN W/OE and Tasks Member Role: Primary Care Nurse Name: Maxine Diallo RN Position: [facility] AMB Nurse Member Role: Primary Care Nurse Name: Estephanie Carballo RN Position: [facility] RN Member Role: Primary Care Nurse Name: Odalys Chau RN Position: [facility] SN RN Member Role: Primary Care Nurse Name: Reji Willson RN Position: [facility] RN Member Role: Primary Care Nurse Name: Katie Holden RN Position: [facility] AMB Nurse Member Role: Primary Care Nurse Name: Evelyne Garcia RN Position: [facility] RN Member Role: Primary Care Nurse Name: Sol Nobles Position: [facility] AMB Nurse Member Role: Lifetime Consulting Physician Name: Johnna Baker RN Position: [facility] RN Member Role: Primary Care Nurse Name: Fantasma Ac RN Position: [facility] SN RN Member Role: Primary Care Nurse Name: Shanda Sharp RN Position: [facility] ED RN W/OE and Tasks Member Role: Primary Care Nurse Name: Sabi Ruiz Position: [facility] engraver steel plate Member Role: Dye House Supervisor Name: Vee Chand MD Position: [facility] Physician - Primary Care Member Role: PCP Address: [address] [place] [address]- Telecom: Name: Ta Kolb RN Position: [facility] ED RN W/OE and Tasks Member Role: Primary Care Nurse Name: Neftaly Morley MD Position: [facility] Outreach Member Role: Lifetime Consulting Physician Address: [address] [facility] [address] [facility] [place] [address]- Telecom: Name: Eva Camarena RN Position: [facility] [place] Office Staff Member Role: Primary Care Nurse Name: Johnna Can CNM Position: [facility] Secondary Special Education Teacher Member Role: Primary Care Nurse Address: [address] [place] [address]- [place] Telecom: Name: Brenda Brown RN Position: [facility] SN RN Member Role: Primary Care Nurse Name: David Mcwilliams MD Position: [facility] Renal MD Member Role: Lifetime Consulting Physician Address: [address] [facility] [address] [facility] [place] [address]- Telecom: Name: Michelle Castillo RN Position: [facility] RN Member Role: Primary Care Nurse Name: Sabi Grady RN Position: [facility] RN Member Role: Primary Care Nurse Name: Sheryl Gaytan Position: [facility] RN Member Role: Primary Care Nurse Name: Gonzalo Naylor RN Position: [facility] RN Member Role: Primary Care Nurse Care Team Related Persons Name: ANI PEREZ Name: STEFFANY FUENTES Insurance Providers Guarantor name: [facility] Information #: 1 Payer: MEDICARE PART B OUTPT Member Number: NA Policy Number: NA Group Number: NA Health Plan Information #: 2 Payer: FOR LIFE MCR A ONLY Member Number: NA Policy Number: NA Group Number: NA
--- OUTSIDE RECORDS SUMMARY | 2024-05-26 17:00 | XMS_ITS | Continuity of Care Document ---
Author Organization [facility] Address [address] [place] [address]- Support Name Relationship Address Phone ANI PEREZ [...] TORRES, CHASE Personal Relationship Unknown Unav ailable TRORES, CHASE Personal Relationship Unknown Unav ailable TORRES, [...] CHASE Personal Relationship Unknown Unav ailable TORRES, CHSAE Personal Relationship Unknown Unav ailable TORRES, BEVERLY Personal Relationship Unknown U navailable Care Team Providers Care Nuclear Worker Technician Name Role Phone Mannie MUÑOZ, Vee Primary Care Physician [place] [facility] [place] [id number] Date(s): 04/09/24 - 05/09/24 [facility] [address] [place] [id number] Encounter Type: Triage Allergies, Adverse Reactions, [...] virus vaccine, inactivated 3 01/21/07 Gi tobi [id number] 12y+ bivalent booster vax 01/28/22 Recorded SARS-CoV-2 (COVID-19) mRNA BNT-162b2 vac 02/04/21 Recorded SARS-CoV-2 (COVID-19) Ad26 vaccine 06/19/20 Record ed pneumococcal 13-valent vaccine 08/09/14 Given pneumococcal 13-valent vaccine 08/09/14 Given tetanus/diphtheria/pertussis, acel(Tdap) 02/12/14 Given Fluzone (oldterm) 4 12/26/13 Given pneumococcal 23-valent vaccine 05/06/13 Given Influenza Virus Vaccine (oldterm) 5 05/15/08 Given Pneumococcal Vaccine (oldterm) 6 10/29/05 Given 1Result Comment: [facility] [id number] 2Result Comment: [facility] [id number] 3Admin Note: VIS GIVEN 4Admin Note: [facility] VIS reviewed 5Admin Note: vis given 6Admin Note: vis given Medications Albuterol (Eqv-ProAir HFA) 90 mcg/inh inhalation aerosol 1 inhalation = 90 mcg, Inhalation, Every 4 hours, PRN as needed for shortness of breath or wheezing, # 6.7 Gm, 0 Refills, Maintenance, 05/06/24 9:51:00 AM EST, Aerosol, [facility], Partial fill upon [...] EST, Route to Pharmacy Electronically, [facility], 157.9, cm, 12/21/23 15:16:00 EDT, [...] DX URINRY INCONTINENCE R39.81, SIM 99 VENU [phone], 02/13/22 2:43:00 PM EST, Supply Start Date: 02/13/22 Status: Ordered Quantity: 180.0 Unit: each Repeat number: 12 Indication: Unspecified urinary incontinence dextromethorphan-guaifenesin 10 mg-100 mg/5 mL oral liquid 10 mL, By Mouth, Every 4 hours, PRN Cough, # 120 mL, 0 Refills, Acute 05/19/24 12:00:00 PM EST, 05/06/24 9:50:00 AM EST, Syrup, [facility], Partial fill upon patient request [...] 1 Refills, Maintenance, 04/05/24 3:29:00 PM EST, [place], [facility], Partial fill [...] DX URINRY INCONTINENCE R39.81, SIM 99 VENU [phone], 02/13/22 2:45:00 PM EST, Supply Start Date: [...] Maintenance, 04/19/24 2:34:00 PM EST, [facility], 94, TAKE 30MLS (2 TABLESPOONS) [...] EDT, Route to Pharmacy Electronically, [facility], Partialfill upon patient request if [...] Refills, Maintenance, 11/30/23 7:46:00 AM EDT, [facility], 157.9, cm, 10/14/23 16:09:00 EDT, [...] Dr Dalal/ [facility] Social History Social History Type Response Smoking Status Former smoker; Tobac co user in household: No; Other: start age 40 quit 2013; entered on: 01/07/18 Sex Sex Representation Female (finding) Patient Care team information Care Team Personnel Name: Alejo Cadet MD Position: [facility] Physician - Gastroenterology Member Role: Lifetime Consulting Physician Address: [facility], [address] [facility] [place] [address]- Telecom: Name: Rafita Edward MD Position: [facility] Renal MD Member Role: Lifetime Consulting Physician Address: [address] [place] [address] [address] [facility] [place] [address]- Telecom: Name: Prashanth Rose RN Position: [facility] [...] MD Member Role: Lifetime Consulting Physician Address: [address] [place] [address] [address] [place] [address]- Telecom: Name: Maryam Ayers RN Position: [facility] [...] Primary Care Nurse Name: Sol Nobles Position: [facility] AMB Nurse Member Role: Lifetime Consulting Physician Name: Johnna Baker RN Position: [facility] RN Member Role: Primary Care Nurse Name: Fantasma Ac RN Position: [facility] SN RN Member Role: Primary Care Nurse Name: Shanda Sharp RN Position: [facility] ED RN W/OE and Tasks Member Role: Primary Care Nurse Name: Sabi Ruiz Position: [facility] oversize load pilot escort Member Role: Auto Damage Appraiser Name: Vee Chand MD Position: [facility] Physician - Primary Care Member Role: PCP Address: [address] [facility] [address] [facility] [address] [facility] [place] [address]- [place] Telecom: Name: Cortes RNTa Position: [facility] ED RN W/OE and Tasks Member Role: Primary Care Nurse Name: Neftaly Morley MD Position: [facility] Outreach Member Role: Lifetime Consulting Physician Address: [address] [facility] [place] [address]- [place] Telecom: Name: Eva Camarena RN Position: [facility] [place] Office Staff Member Role: Primary Care Nurse Name: Johnna Can CNM Position: [facility] Researcher Member Role: Primary Care Nurse Address: [address] [place] [address]- [place] Telecom: Name: Brenda Brown RN Position: [facility] SN RN Member Role: Primary Care Nurse Name: David Mcwilliams MD Position: [facility] Renal MD Member Role: Lifetime Consulting Physician Address: [address] [facility] [place] [address]- [place] Telecom: Name: Michelle Castillo RN Position: [facility] [...]
--- OUTSIDE RECORDS SUMMARY | 2024-05-26 17:00 | XMS_ITS | Clinical Summary ---
Author Organization Unknown Care Team Providers Care Cube Machine Tender Name Role Phone MELODY RODRÍGUEZ MD, NEIL Unavailable Angy MANTILLA RN, ADMISSION NURSE, LONNIE Rivero able Unavailable HI NAVARRO, CLINICAL LEARNING COORDINATOR, SANAZ Hsieh available Unavailable Payers Payer Name Policy Type Policy Number Effective Date Expira tion Date MEDICARE - [facility] [id number] Problems Condition Name Condition Details Condition Category [...] 03-22 00:00: 00 ATHSCL HEART DISEASE OF [place] CORONARY ARTERY W/O ANG PCTRS Active 03-22 [...] NICOTINE DEPENDENCE Active 03-22 00:00: 00 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 Active 03-22 00:00: 00 [...] 2020-03 00:00: 00 11-13 23:59 :00 No [id number] 1 tablet DAILY 1 tablet DAILY (route: oral) Med Classific ation: Gout and Hyperuric emia Therapy atorvastati n 80 mg tablet 2020-03 00:00: 00 11-13 23:59 :00 No [id number] 1 tablet DAILY 1 tablet DAILY (route: oral) Med Classific ation: Cardiovas cular Therapy Agents Colace 100 mg capsule 2020-03 00:00: 00 11-13 23:59 :00 No [id number] 1 capsule NEEDED 1 capsule NEEDED (route: oral) Med Classific ation: Gastroint estinal Therapy Agents colchicine 0.6 mg capsule 2020-03 00:00: 00 11-13 23:59 :00 No [id number] 2 capsule NEEDED 2 capsule NEEDED (route: oral) Med Classific ation: Gout and Hyperuric emia Therapy Despec-DM (phenylephr ine-DM-guai f) 5 mg-10 mg-100 mg/5 mL oral liquid 2020-03 00:00: 00 11-13 23:59 :00 No [id number] Per instruc tions NEEDED Per instructio ns NEEDED (route: oral) Med Classific ation: Respirato ry Therapy Agents Lasix 20 mg tablet 2020-03 00:00: 00 11-13 23:59 :00 No [id number] 1 tablet DAILY 1 tablet DAILY (route: oral) Med Classific ation: Cardiovas cular Therapy Agents Lasix 40 mg tablet 2020-03 00:00: 00 11-13 23:59 :00 No [id number] 1 tablet DAILY 1 tablet DAILY (route: oral) Med Classific ation: Cardiovas cular Therapy Agents melatonin 3 mg tablet 2020-03 00:00: 00 11-13 23:59 :00 No [id number] 2 tablet BEDTIME 2 tablet BEDTIME (route: oral) Med Classific ation: Central Nervous System Agents Miralax 17 gram/dose oral powder 2020-03 00:00: 00 11-13 23:59 :00 No [id number] Per instruc tions NEEDED Per instructio ns NEEDED (route: oral) Med Classific ation: Gastroint estinal Therapy Agents nystatin 100,000 unit/gram topical powder 2020-03 00:00: 00 11-13 23:59 :00 No [id number] Per instruc tions 2 TIMES DAILY Per instructio ns 2 TIMES DAILY (route: topical) Med Classific ation: Dermatolo gical Protonix 40 mg tablet,beto yed release 2020-03 00:00: 00 11-13 23:59 :00 No [id number] 1 tablet DAILY 1 tablet DAILY (route: oral) Med Classific ation: Gastroint estinal Therapy Agents Vitamin B-12 100 mcg tablet 2020-03 00:00: 00 11-13 23:59 :00 No [id number] 1 tablet DAILY 1 tablet DAILY (route: oral) Med Classific ation: Electroly te Balance-N utritiona l Products Myrbetriq 50 mg tablet,exte nded release 11-16 00:00: 00 12-31 23:59 :00 No [id number] 1 tablet DAILY 1 tablet DAILY (route: oral) Med Classific ation: Genitouri nary Therapy calcitriol 0.25 mcg capsule 11-06 00:00: 00 11-16 00:00 :00 No [id number] Per instruc tions Per instructio ns (route: oral) Med Classific ation: Electroly te Balance-N utritiona l Products calcitriol 0.25 mcg capsule 11-06 00:00: 00 04-15 23:59 :00 No [id number] Per instruc tions THREE TIMES A WEEK Per instructio ns THREE TIMES A WEEK (route: oral) Med Classific ation: Electroly te Balance-N utritiona l Products pantoprazol e 40 mg tablet,beto yed release 10-31 00:00: 00 11-16 00:00 :00 No [id number] Per instruc tions Per instructio ns (route: oral) Med Classific ation: Gastroint estinal Therapy Agents pantoprazol e 40 mg tablet,beto yed release 10-31 00:00: 00 04-15 23:59 :00 No [id number] Per instruc tions EVERY DAY Per instructio ns EVERY DAY (route: oral) Med Classific ation: Gastroint estinal Therapy Agents allopurinol 100 mg tablet 11-16 00:00: 00 04-15 23:59 :00 No [id number] .5 tablet DAILY .5 tablet DAILY (route: oral) Med Classific ation: Gout and Hyperuric emia Therapy allopurinol 100 mg tablet 10-15 00:00: 00 11-16 00:00 :00 No [id number] Per instruc tions EVERY DAY Per instructio ns EVERY DAY (route: oral) Med Classific ation: Gout and Hyperuric emia Therapy atorvastati n 80 mg tablet 10-15 00:00: 00 11-16 00:00 :00 No [id number] Per instruc tions Per instructio ns (route: oral) Med Classific ation: Cardiovas cular Therapy Agents atorvastati n 80 mg tablet 10-15 00:00: 00 11-16 00:00 :00 No [id number] Per instruc tions AT BEDTIME Per instructio ns AT BEDTIME (route: oral) Med Classific ation: Cardiovas cular Therapy Agents cephalexin 500 mg tablet 11-16 00:00: 00 12-31 23:59 :00 No [id number] 1 tablet 2 TIMES DAILY 1 tablet 2 TIMES DAILY (route: oral) Med Classific ation: Anti-Infe ctive Agents cyanocobala min (B12)-cobam amide 5,000 mcg-100 mcg sublingual tablet 11-16 00:00: 00 04-15 23:59 :00 No [id number] 1 tablet DAILY 1 tablet DAILY (route: sublingual ) Med Classific ation: Electroly te Balance-N utritiona l Products melatonin 3 mg tablet 11-16 00:00: 00 04-15 23:59 :00 No [id number] 1 tablet BEDTIME 1 tablet BEDTIME (route: oral) Med Classific ation: Central Nervous System Agents metoprolol succinate ER 100 mg tablet,exte nded release 24 hr 11-16 00:00: 00 04-15 23:59 :00 No [id number] 1 tablet DAILY 1 tablet DAILY (route: oral) Med Classific ation: Cardiovas cular Therapy Agents polyethylen e glycol 3350 17 gram oral powder packet 11-16 00:00: 00 04-15 23:59 :00 No [id number] 1 powder in packet DAILY 1 powder in packet DAILY (route: oral) Med Classific ation: Gastroint estinal Therapy Agents Senna Plus 8.6 mg-50 mg capsule 11-16 00:00: 00 04-15 23:59 :00 No [id number] 1 capsule 2 TIMES DAILY 1 capsule 2 TIMES DAILY (route: oral) Med Classific ation: Gastroint estinal Therapy Agents sodium bicarbonate 650 mg tablet 11-16 00:00: 00 12-31 23:59 :00 No [id number] 1 tablet 2 TIMES DAILY 1 tablet 2 TIMES DAILY (route: oral) Med Classific ation: Gastroint estinal Therapy Agents torsemide 20 mg tablet 11-16 00:00: 00 04-15 23:59 :00 No [id number] 1 tablet EVERY OTHER DAY 1 tablet EVERY OTHER DAY (route: oral) Med Classific ation: Cardiovas cular Therapy Agents cephalexin 500 mg tablet 12-18 00:00: 00 12-23 23:59 :00 No [id number] 500 mg 4 TIMES DAILY 500 mg 4 TIMES DAILY (route: oral) Med Classific ation: Anti-Infe ctive Agents potassium chloride 20 mEq oral packet 12-18 00:00: 00 12-23 23:59 :00 No [id number] 20 mEq DAILY 20 mEq DAILY (route: oral) Med Classific ation: Electroly te Balance-N utritiona l Products atorvastati n 80 mg tablet 2021-03 00:00: 00 04-15 23:59 :00 No [id number] 1 tablet BEDTIME 1 tablet BEDTIME (route: oral) Med Classific ation: Cardiovas cular Therapy Agents torsemide 20 mg tablet 04-07 00:00: 00 04-23 23:59 :00 No [id number] 1 tablet DAILY 1 tablet DAILY (route: oral) Med Classific ation: Cardiovas cular Therapy Agents allopurinol 100 mg tablet 04 00:00: 00 12-21 23:59 :00 No [id number] Per instruc tions EVERY DAY Per instructio ns EVERY DAY (route: oral) Med Classific ation: Gout and Hyperuric emia Therapy metoprolol succinate ER 100 mg tablet,exte nded release 24 hr 03-25 00:00: 00 12-21 23:59 :00 No [id number] Per instruc tions EVERY DAY Per instructio ns EVERY DAY (route: oral) Med Classific ation: Cardiovas cular Therapy Agents atorvastati n 80 mg tablet 04-21 00:00: 00 12-21 23:59 :00 No [id number] 1 tablet BEDTIME 1 tablet BEDTIME (route: oral) Med Classific ation: Cardiovas cular Therapy Agents calcitriol 0.25 mcg capsule 04-21 00:00: 00 12-21 23:59 :00 No [id number] 1 capsule DAILY 1 capsule DAILY (route: oral) Med Classific ation: Electroly te Balance-N utritiona l Products calcium cit 1,000 mg calcium-vit D3 10 mcg(400 unit)/30 mL oral liquid 04-21 00:00: 00 12-21 23:59 :00 No [id number] 30 mL DAILY 30 mL DAILY (route: oral) Med Classific ation: Electroly te Balance-N utritiona l Products cyanocobala min (vit B-12) 1,000 mcg tablet 04-21 00:00: 00 12-21 23:59 :00 No [id number] 1 tablet DAILY 1 tablet DAILY (route: oral) Med Classific ation: Electroly te Balance-N utritiona l Products fluticasone propionate 50 mcg/actuati on nasal spray,suspe nsion 04-21 00:00: 00 12-21 23:59 :00 No [id number] 1 spray 2 TIMES DAILY 1 spray 2 TIMES DAILY (route: nasal) Med Classific ation: Respirato ry Therapy Agents melatonin 1 mg tablet 04-21 00:00: 00 12-21 23:59 :00 No [id number] 2 tablet BEDTIME 2 tablet BEDTIME (route: oral) Med Classific ation: Central Nervous System Agents metolazone 2.5 mg tablet 04-21 00:00: 00 12-21 23:59 :00 No [id number] 0.5 tablet DAILY 0.5 tablet DAILY (route: oral) Med Classific ation: Cardiovas cular Therapy Agents Miralax 17 gram oral powder packet 04-21 00:00: 00 12-21 23:59 :00 No [id number] 17 g DAILY 17 g DAILY (route: oral) Med Classific ation: Gastroint estinal Therapy Agents Myrbetriq 50 mg tablet,exte nded release 04-21 00:00: 00 12-21 23:59 :00 No [id number] 1 tablet DAILY 1 tablet DAILY (route: oral) Med Classific ation: Genitouri nary Therapy nitroglycer in 0.4 mg sublingual tablet 04-21 00:00: 00 12-21 23:59 :00 No [id number] 1-3 tablet DAILY 1-3 tablet DAILY (route: sublingual ) Med Classific ation: Cardiovas cular Therapy Agents ondansetron HCl 4 mg tablet 04-21 00:00: 00 12-21 23:59 :00 No [id number] 1 tablet DAILY 1 tablet DAILY (route: oral) Med Classific ation: Gastroint estinal Therapy Agents pantoprazol e 40 mg tablet,beto yed release 04-21 00:00: 00 12-21 23:59 :00 No [id number] 1 tablet DAILY 1 tablet DAILY (route: oral) Med Classific ation: Gastroint estinal Therapy Agents Senna with Docusate Sodium 8.6 mg-50 mg tablet 04-21 00:00: 00 12-21 23:59 :00 No [id number] 1 tablet 2 TIMES DAILY 1 tablet 2 TIMES DAILY (route: oral) Med Classific ation: Gastroint estinal Therapy Agents spironolact one 25 mg tablet 04-21 00:00: 00 04-23 23:59 :00 No [id number] 1 tablet DAILY 1 tablet DAILY (route: oral) Med Classific ation: Cardiovas cular Therapy Agents Ventolin HFA 90 mcg/actuati on aerosol inhaler 1-31 00:00: 00 12-21 23:59 :00 No [id number] 2 puff EVERY 6 HOURS 2 puff EVERY 6 HOURS (route: inhalation ) Med Classific ation: Respirato ry Therapy Agents spironolact one 50 mg tablet 2- 00:00: 00 12-21 23:59 :00 No [id number] 1 tablet DAILY 1 tablet DAILY (route: oral) Med Classific ation: Cardiovas cular Therapy Agents torsemide 20 mg tablet 2- 00:00: 00 12-21 23:59 :00 No [id number] 2 tablet 2 TIMES DAILY 2 tablet 2 TIMES DAILY (route: oral) Med Classific ation: Cardiovas cular Therapy Agents albuterol sulfate HFA 90 mcg/actuati on aerosol inhaler 2023-03 0- 00:00: 00 Yes [id number] 2 puff EVERY 6 HOURS 2 puff EVERY 6 HOURS (route: inhalation ) Med Classific ation: Respirato ry Therapy Agents allopurinol 100 mg tablet 2023-03 0-04 00:00: 00 Yes [id number] 0.5 tablet DAILY 0.5 tablet DAILY (route: oral) Med Classific ation: Gout and Hyperuric emia Therapy atorvastati n 80 mg tablet 2023-03 0-04 00:00: 00 Yes [id number] 1 tablet BEDTIME 1 tablet BEDTIME (route: oral) Med Classific ation: Cardiovas cular Therapy Agents calcitriol 0.25 mcg capsule 2023-03 0-04 00:00: 00 Yes [id number] 1 capsule DAILY 1 capsule DAILY (route: oral) Med Classific ation: Electroly te Balance-N utritiona l Products Colace 100 mg capsule 2023-03 0-04 00:00: 00 Yes [id number] 1 capsule DAILY 1 capsule DAILY (route: oral) Med Classific ation: Gastroint estinal Therapy Agents doxycycline hyclate 100 mg tablet 2023-03 0-04 00:00: 00 01-04 23:59 :00 No [id number] 1 tablet 2 TIMES DAILY 1 tablet 2 TIMES DAILY (route: oral) Med Classific ation: Anti-Infe ctive Agents Flonase Allergy Relief 50 mcg/actuati on nasal spray,suspe nsion 2023-03 0-04 00:00: 00 Yes [id number] 1 spray DAILY 1 spray DAILY (route: nasal) Med Classific ation: Respirato ry Therapy Agents Vitamin D2 1,250 mcg (50,000 unit) capsule 2023-03 0-04 00:00: 00 Yes [id number] 1 capsule WEEKLY 1 capsule WEEKLY (route: oral) Med Classific ation: Electroly te Balance-N utritiona l Products Tylenol 8 Hour 650 mg tablet,exte nded release 2023-03 0-16 00:00: 00 Yes [id number] 1 tablet NEEDED 1 tablet NEEDED (route: oral) Med Classific ation: Analgesic , Anti-infl ammatory or Antipyret ic melatonin 3 mg capsule 2023-03 0-15 00:00: 00 Yes [id number] 2 capsule BEDTIME 2 capsule BEDTIME (route: oral) Med Classific ation: Central Nervous System Agents betamethaso ne valerate 0.1 % topical cream 2023-03 1- 00:00: 00 Yes [id number] Per instruc tions DIRECTED Per instructio ns DIRECTED (route: topical) Med Classific ation: Dermatolo gical amoxicillin 875 mg-potassiu m clavulanate 125 mg tablet - 00:00: 00 04-16 23:59 :00 No [id number] 1 tablet EVERY 12 HOURS 1 tablet EVERY 12 HOURS (route: oral) Med Classific ation: Anti-Infe ctive Agents doxycycline monohydrate 100 mg capsule - 00:00: 00 04-22 23:59 :00 No [id number] 1 capsule EVERY 12 HOURS 1 capsule EVERY 12 HOURS (route: oral) Med Classific ation: Anti-Infe ctive Agents prednisone 20 mg tablet 2- 00:00: 00 04-24 23:59 :00 No [id number] Per instruc tions DAILY Per instructio ns DAILY (route: oral) Med Classific ation: Endocrine albuterol sulfate HFA 90 mcg/actuati on aerosol inhaler 2- 00:00: 00 Yes [id number] 1 puff EVERY 4 HOURS 1 puff EVERY 4 HOURS (route: inhalation ) Med Classific ation: Respirato ry Therapy Agents Guaiasorb DM 10 mg-100 mg/5 mL oral liquid 2- 00:00: 00 Yes [id number] 10 mL DAILY 10 mL DAILY (route: oral) Med Classific ation: Respirato ry Therapy Agents Tamiflu 75 mg capsule - 00:00: 00 05-08 23:59 :00 No [id number] 1 capsule DAILY 1 capsule DAILY (route: [...] MAINTAIN SITUATIONAL AWARENESS AND WILL NOTIFY CLINICAL ORNAMENTAL IRON ERECTOR AND PHYSICIAN/PROVIDER WITH ANY CHANGE IN CONDITION. [code = SKILLED NURSE TO PERFORM ENVIRONMENTAL SAFETY RISK ASSESSMENT AND FALL RISK ASSESSMENT AND PROVIDE INSTRUCTION TO IMPLEMENT ENVIRONMENTAL SAFETY AND FALL PREVENTION STRATEGIES THROUGHOUT THE CERTIFICATION PERIOD. SKILLED NURSE WILL MAINTAIN SITUATIONAL AWARENESS AND WILL NOTIFY CLINICAL ORNAMENTAL IRON ERECTOR AND PHYSICIAN/PROVIDER WITH ANY CHANGE IN CONDITION.] [...] CARE WILL BE ESTABLISHED THAT MEETS PATIENT'S LONG TERM NEEDS AND INCLUDES PATIENT GOAL FOR HOME [...] End Date/Time Encounter Type Admission Type Attending [facility] Facility Care Department Encounter ID Discharge Date Discharge Status Discharge Condition Discharge Reason Percent Goals Met 2023-12-24 00:00:00 2024-06-20 00:00:00 Outpatient FERTIFIC ATLONNIE BONILLA [facility] [id number] 17.14
--- OUTSIDE RECORDS SUMMARY | 2024-05-26 17:00 | XMS_ITS | Continuity of Care Document ---
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 Name Role Phone Mannie MUÑOZ, Vee Primary Care Physician [place] [facility] Date(s): 04/07/24 - 05/07/24 [facility] [address] [place], [place] [address] Encounter Type: Triage Allergies, Adverse [...] virus vaccine, inactivated 3 01/21/07 Gi tobi [id number] 12y+ bivalent booster vax 01/28/22 Recorded SARS-CoV-2 (COVID-19) mRNA BNT-162b2 vac 02/04/21 Recorded SARS-CoV-2 (COVID-19) Ad26 vaccine 06/19/20 Record ed pneumococcal 13-valent vaccine 08/09/14 Given pneumococcal 13-valent vaccine 08/09/14 Given tetanus/diphtheria/pertussis, acel(Tdap) 02/12/14 Given Fluzone (oldterm) 4 12/26/13 Given pneumococcal 23-valent vaccine 05/06/13 Given Influenza Virus Vaccine (oldterm) 5 05/15/08 Given Pneumococcal Vaccine (oldterm) 6 10/29/05 Given 1Result Comment: [facility] [id number] 2Result Comment: [facility] [id number] 3Admin Note: VIS GIVEN 4Admin Note: [facility] VIS reviewed 5Admin Note: vis given 6Admin Note: vis given Medications Albuterol (Eqv-ProAir HFA) 90 mcg/inh inhalation aerosol 1 inhalation = 90 mcg, Inhalation, Every 4 hours, PRN as needed for shortness of breath or wheezing, # 6.7 Gm, 0 Refills, Maintenance, 05/06/24 9:51:00 AM EST, Aerosol, [facility], Partial fill upon patient [...] 8:44:00 PM EST, Route to Pharmacy Electronically, [facility], 157.9, cm, 12/21/23 15:16:00 EDT, Height, 72, kg, 04/15/23 22:25:00 EST, Dry Weight Start Date: 03/28/24 Status: Ordered Quantity: 45.0 Unit: tablet Repeat number: 1 atorvastatin 80 mg oral tablet 1 tablet, By Mouth, Daily at bedtime, # 90 tablet, 1 Refills, Maintenance, 04/14/24 5:32:00 PM EST, [facility], 157.9, cm, 04/05/24 14:53:00 EST, [...] DX URINRY INCONTINENCE R39.81, SIM 99 VENU [phone], 02/13/22 2:43:00 PM EST, Supply Start Date: 02/13/22 Status: Ordered Quantity: 180.0 Unit: each Repeat number: 12 Indication: Unspecified urinary incontinence dextromethorphan-guaifenesin 10 mg-100 mg/5 mL oral liquid 10 mL, By Mouth, Every 4 hours, PRN Cough, # 120 mL, 0 Refills, Acute 05/19/24 12:00:00 PM EST, 05/06/24 9:50:00 AM EST, Syrup, [facility], Partial fill upon patient [...] 1 Refills, Maintenance, 04/05/24 3:29:00 PM EST, [place], [facility], Partial fill [...] INCONTINENCE R39.81, SIM 99 RICK AND MARIE [phone], 02/13/22 2:45:00 PM EST, Supply Start Date: [...] Maintenance, 04/19/24 2:34:00 PM EST, [facility], 94, TAKE 30MLS (2 TABLESPOONS) [...] 8:38:00 AM EDT, Route to Pharmacy Electronically, [facility], Partialfill upon patient request if [...] Refills, Maintenance, 11/30/23 7:46:00 AM EDT, [facility], 157.9, cm, 10/14/23 16:09:00 EDT, [...] Quantity: 100.0 Unit: tablet Repeat number: 1 oseltamivir 75 mg oral capsule = 75 mg, By Mouth, Daily, # 2 capsule, 0 Refills, Acute 05/08/24 11:45:00 AM EST, 05/06/24 9:49:00 AMEST, Capsule, [facility], Partial fill upon patient request if the prescription is for a schedule II opioid drug., 165, cm, 05/06/24 8:21:00 EST, Height, 68.8, kg, 05/04/24 9:42:00 EST,Dry Weight Start Date: 05/06/24 Stop Date: 05/08/24 Status: Ordered Quantity: 2.0 Unit: capsule Repeat number: 1 pantoprazole 40 mg oral [...] Dr Dalal/ [facility] Social History Social History Type Response Smoking Status Former smoker; Tobac co user in household: No; Other: start age 40 quit 2013; entered on: 01/07/18 Sex Sex Representation Female (finding) Patient Care team information Care Team Personnel Name: Alejo Cadet MD Position: [facility] Physician - Gastroenterology Member Role: Lifetime Consulting Physician Address: [address] [place] [address], [address] [facility] [place] [address]- II Telecom: Name: Rafita Edward MD Position: [facility] Renal MD Member Role: Lifetime Consulting Physician Address: [address] [place] [address] [address] [place] [address]- Telecom: Name: Prashanth Rose RN Position: [place] [...] MD Member Role: Lifetime Consulting Physician Address: [address] [place] [address] [address] [facility] [place], [place] - Telecom: Name: Maryam Ayers RN Position: [place] [...] Primary Care Nurse Name: Sol Nobles Position: [facility] AMB Nurse Member Role: Lifetime Consulting Physician Name: Johnna Baker RN Position: [facility] RN Member Role: Primary Care Nurse Name: Fantasma Ac RN Position: [facility] SN RN Member Role: Primary Care Nurse Name: Shanda Sharp RN Position: [facility] RN Member Role: Primary Care Nurse Name: Sabi Ruiz Position: [facility] tool design checker Member Role: Head Rigger Name: Vee Chand MD Position: [facility] Physician - Primary Care Member Role: PCP Address: [address] [place] [id number]- Telecom: Name: Ta Kolb RN Position: [facility] ED RN W/OE and Tasks Member Role: Primary Care Nurse Name: Neftaly Morley MD Position: [facility] Outreach Member Role: Lifetime Consulting Physician Address: [address] [facility] [place] [address]- [place] Telecom: Name: Eva Camarena RN Position: [facility] [place] Office Staff Member Role: Primary Care Nurse Name: Johnna Can CNM Position: [facility] Mini Baccarat Dealer Member Role: Primary Care Nurse Address: [address] [place] [id number]- [place] Telecom: Name: Brenda Brown RN Position: [facility] SN RN Member Role: Primary Care Nurse Name: David Mcwilliams MD Position: [facility] Renal MD Member Role: Lifetime Consulting Physician Address: [address] [facility] [place] [address]- [place] Telecom: Name: Michelle Castillo RN Position: [facility] [...] FUENTES Insurance Providers Guarantor name: BEVERLY TORRES [employer] Information #: 1 Payer: MEDICARE PART B OUTPT Member Number: NA Policy Number: NA Group Number: NA Health Plan Information #: 2 Payer: FOR LIFE MCR A ONLY Member Number: NA Policy Number: NA Group Number: NA
--- OUTSIDE RECORDS SUMMARY | 2024-05-26 17:00 | XMS_ITS | Data Portability ---
Author Organization [facility], Main Office Address [address], [address] [place] [address] Care Team Providers Care Disc Sander Name Role Phone RORY TARANGO 1ST FLOOR OTHER [phone] NEIL COYLE Primary Care Provider Assessment No [...] Address Organization Details Recorded Time Hyperlipid emia 48838540 Active 2019 LORNA SAUCEDO NP [address] [facility], [address], [place], [address] , [facility] 0 08:12:22 Acute urinary tract infection 326360440 Active 2019 LORNA SAUCEDO NP [address] [facility], [address], [place], [address] , [facility] 0 08:12:35 Gout 89159436 Active 2019 LORNA SAUCEDO NP [address] [facility], [address], [place], [address] , [facility] 0 08:21:44 Acute-on-c hronic renal failure 784943818 Active 2019 Inge Rodríguez MD [address] [facility], [address], [place], [address] , [facility] 0 00:35:34 Overactive urinary bladder 950525399 Active 2020 Inge Rodríguez MD [address] [facility], [address], [place], [address] , [facility] 1 00:36:36 Total knee replacemen t Active 2020 LORNA SAUCEDO NP [address], [address], [place], [address] , [facility] 1 09:22:16 Pain in left knee Active 2020 LORNA SAUCEDO NP [address] [facility], [address], [place], [address] , [facility] 1 09:22:52 Constipati on 76350764 Active 2020 Inge Rodríguez MD [address], [place], [address] , [facility] 1 16:36:30 Degenerati ve joint disease involving multiple joints 559813578 Active 2020 Inge Rodríguez MD [address] [facility], [address], [place], [address] , [facility] 1 23:37:24 Surgical incision wound of skin 921410398118 Active 2020 right knee LORNA SAUCEDO NP [address] [facility], [address], [place], [address] , [facility] 1 08:57:59 Pain in right knee Active 2020 LORNA SAUCEDO NP [address] [facility], [address], [place], [address] , [facility] 1 11:38:33 Chronic kidney disease stage 3A 235439961 Active 2020 Inge Rodríguez MD [address] [facility], [address], [place], [address] , [facility] 1 01:37:03 Cholecysti tis 99806624 Active 2019 Marcelina alonzo [facility] 0 13:27:09 Type 2 diabetes mellitus without complicati on 672053873 Active 2019 aMrcelina alonzo [place] [facility] 0 13:27:09 Essential hypertensi on 43329011 Active 2019 Marcelina alonzo, [facility] 0 13:27:10 Coronary arterioscl erosis 77665173 Active 2019 Marcelina alonzo, [facility] 0 13:27:12 Chronic atrial fibrillati on 327783242 Active 2019 Marcelina alonzo, [facility] 0 13:27:18 Gastroesop hageal reflux disease without esophagiti s 438996989 Active 2019 Marcelina alonzo, [facility] 0 13:27:20 Disorder of urinary bladder 92541701 Active 2019 Marcelina alonzo, [facility] 0 13:30:10 History of deep vein thrombosis 216465922 Active 2019 Marcelina alonzo, [facility] 0 14:51:52 Congestive heart failure 84794064 Active 2019 Marcelina alonzo, [facility] 0 14:51:55 Renal mass 149108808 Active 2019 Marcelina alonzo, [facility] 0 14:52:00 Asthenia 16962358 Active 2019 Marcelina alonzo, [facility] 0 14:52:02 Problem Notes None recorded. Medical Equipment None Reported. Allergies Allergen ID Allergen Name Allergen Category Reaction Reaction Severity Criticality Documentation Date Start Date Code Code System Note Provider Name and Address Organization Details Recorded Time 59490 lisinopri l medicatio n Not available Not available Not available 04/04/2019 82532 RxNorm Not Available Not Available Not Available 48932 Dilaudid medicatio n Not available Not available Not available 01/07/2021 55901 3 RxNorm Not Available Not Available Not [...] mm[Hg] 57 mm[Hg] LORNA SAUCEDO NP [address] [facility], [address], [place], [address], [employer] 11:30:38 Date Recorded Body height Heart rate Respiratory rate Body temperature Oxygen saturation Oxygen saturation in Arterial blood by Pulse oximetry Systolic blood pressure Diastolic blood pressure Provider Name and Address Organization Details Last Updated DateTime 162.56 cm 71 /min 20 /min 97.6 [degF] 96 % 96 % 113 mm[Hg] 61 mm[Hg] LORNA SAUCEDO NP [address] [facility], [address], [place], [address], [facility] 08:38:54 Date Recorded Body height Body mass index (BMI) Body weight Heart rate Respiratory rate Body temperature Oxygen saturation Oxygen saturation in Arterial blood by Pulse oximetry Systolic blood pressure Diastolic blood pressure Provider Name and Address Organization Details Last Updated DateTime 162.56 cm 26.2 kg/m2 66464.4 8 g 70 /min 16 /min 97 [degF] 96 % 96 % 112 mm[Hg] 61 mm[Hg] Inge Rodríguez MD [address] [facility], [address], [place], [address], [employer] 16:25:57 Date Recorded Body height Heart rate Respiratory rate Body temperature Oxygen saturation Oxygen saturation in Arterial blood by Pulse oximetry Systolic blood pressure Diastolic blood pressure Provider Name and Address Organization Details Last Updated DateTime 162.56 cm 70 /min 16 /min 97 [degF] 96 % 96 % 112 mm[Hg] 61 mm[Hg] LORNA SAUCEDO NP [address] [facility], [address], [place], [address], [facility] 1 12:16:58 Date Recorded Body height Heart rate Respiratory rate Body temperature Oxygen saturation Oxygen saturation in Arterial blood by Pulse oximetry Systolic blood pressure Diastolic blood pressure Provider Name and Address Organization Details Last Updated DateTime 162.56 cm 91 /min 18 /min 97 [degF] 97 % 97 % 108 mm[Hg] 61 mm[Hg] LORNA SAUCEDO NP [address] [facility], [address], [place], [address], [place] [facility] 1 11:04:33 Social History Question Answer Notes LastModified by Organizat ion Details LastModified Time Tobacco Smoking Status Former Smoker quit 2013 Not Available [employer] 01/16/2020 03:13:20 Do You Have An Advance Directive? Yes CPR-hospital Ok, No Dialysis , Ok For Iv. Hydration, Art Nut. Information not available 01/07/2021 What Is Your Level Of Alcohol Consumption? Occasional [id number] Information not available 01/16/2020 How Much Tobacco Do You Chew? None [id number] Information not available 01/16/2020 What Is Your Code Status? DNI Information not available 01/07/2021 Do You Or Have You Ever Used E-cigarettes Or Vape? Never Used Electronic Cigarettes [id number] Information not available 01/16/2020 Legal Guardian? No Information not available 12/16/2020 Do You Have A Medical Power Of Housekeeping Assistant? Yes Has One, Need To Obtain Information not available 12/16/2020 What Was The Date Of Your Most Recent Tobacco Screening? 12/12/2019 [id number] Information not available 01/16/2020 Do You Or Have You Ever Used Smokeless Tobacco? Never Used Smokeless Tobacco [id number] Information not available 01/16/2020 Has Tobacco Cessation Counseling Been Provided? No N/a As Pt. No Longer Smokes Information not available 12/16/2020 How Many Years Have You Smoked Tobacco? 50 [id number] Information not available 01/16/2020 Do You Or [...] mcg/0.3 mL dose 1 completed Julieth alonzo, [facility] 02/19/2021 13:36:20 Influenza, high-dose, quadrivalent, PF 1 completed [facility], [facility] 03/19/2021 09:32:37 Influenza, split virus, quadrivalent, preservative 0 completed [facility], [facility] 01/12/2020 10:17:01 Pneumococcal conjugate PCV 13 5 completed [facility], [facility] 08/12/2020 09:42:53 pneumococcal polysaccharide PPV23 4 completed [facility], [facility] 08/12/2020 09:43:04 Tdap 4 completed [facility] 08/12/2020 09:43:14 Past Encounters Encounter ID Performer Location Encounter Start Date Encounter Closed Date Diagnosis/Indication Diagnosis SNOMED-CT Code Diagnosis ICD10 Code Diagnosis Note [id number] Marcelina [address] [address] [place] [address] 04/04/2019 13:17:17 04/04/2019 14:15:53 Cholecystitis 74182720 K80.10 recs for no surgical interventi on abd pain resolved on DC from acute care Pt without abd pain today continued on augmentin bid - no stop date- will call acute care and see if there was a stop date planned. WBC wnl monitor for pain mgmt 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 858683123 E11.9 diet controlled , not on meds for this accucheck prn Essential hypertension 37889111 I10 lasix 20mg on mon, wed, fri ADD per cards- metoprolol XL 50mg qd (hold for SBP<100), spironolac tone 12.5mg bid, and entresto 49/51mg bid (to change down to 24/26mg bid dose for consistent SBP<100) pt had been imdur in the past but cards does not want to restart this. monitor bp, labs Coronary arteriosclerosis 45237729 I25.10 atorvastat in 80mg qd metoprolol XL 50mg qd nitroglyce rin SL tab q5min for 3 doses monitor lfts prn Chronic at rial fibrillation 059557460 I48.21 on coumadin digoxin 0.125 qd on mon, wed, fri pt also on lovenox for DVT, see above metoprolol XL 50mg qd monitor for rate control, titrate coumadin prn Gastroesop hageal reflux disease without esophagitis 593029851 K21.9 pantoprazo le 40mg qd monitor for sx Disorder o f urinary bladder 01940954 N32.81 myrbetriq 50mg ER qd monitor for sx Renal mass 670363662 N28 .89 right sided is followed by nephrologi st no plan for interventi on at this time for this however CT in acute care finding of new left sided renal mass- to f/u with nephrologi st for this. History of deep vein thrombosis 008894994 Z86.718 ? DVT in acute care Pt has ordered lovenox and coumadin will continue AC therapy for now and request documentat ion from acute care regarding this US to RUE today stat monitor Asthenia 14462752 R53.1 PT/OT to eval and treat monitor for fall risk Congestive heart failure 01120928 I50.22 lasix 20mg on mon, wed, fri ADD per cards- metoprolol XL 50mg qd (hold for SBP<100), spironolac tone 12.5mg bid, and entresto 49/51mg bid (to change down to 24/26mg bid dose for consistent SBP<100) f/u with cards monitor resp status, fluid status, daily weights [id number] [address] 04/06/2019 14:48:45 04/12/2019 14:33:13 History of deep vein thrombosis 383844942 Z86.718 DVT to the RUE in acute care pt on lovenox - coumadin bridge to DC lovenox when coumadin is in therapeuti c range monitor Essential hypertension 72716546 I10 lasix 20mg on mon, wed, fri [...] continue to monitor Chronic at rial fibrillation 586229618 I48.21 on coumadin digoxin 0.125 qd on mon, wed, fri metoprolol XL 50mg qd monitor for rate control, titrate coumadin prn Osteoarthr itis of left knee joint 5211630121 40038 M17.12 pt getting lidocaine patch, apap 650mg prn, muscle rub she also sees specialist outpt and gets injections . will DC prn apap and schedule 1,000mg tid monitor for effect continue with PT/OT to maximize function as tolerated. [id number] Marcelina [address] [address] [address] [place], [place] [address] 04/07/2019 13:58:39 04/12/2019 14:36:15 Osteoarthritis of left knee joint 8957131558 19347 M17.12 pt getting lidocaine patch to bilat knees, muscle rub started on apap 1,000mg tid yesterday with little effect, will change to prn start tramadol 25mg bid prn Pt sees specialist - will order a consult monitor for pain mgmt continue with PT/OT to maximize function as tolerated. History of deep vein thrombosis 359427019 Z86.718 DVT to the RUE in acute care pt on lovenox - coumadin bridge coumadin in therapeuti c range today, will DC lovenox. continue coumadin and titrate prn monitor Chronic at rial fibrillation 028173937 I48.21 on coumadin digoxin 0.125 qd on mon, wed, fri metoprolol XL 50mg qd monitor for rate control, titrate coumadin prn Essential hypertension 71426199 I10 stable lasix 20mg on mon, wed, fri metoprolol XL 50mg qd (hold for SBP<100), spironolac tone 12.5mg bid entresto 49/51mg bid (to change down to 24/26mg bid dose for consistent SBP<100) monitor bp, labs Cholecystitis 97700661 K 80.10 recs for no surgical interventi on abd pain resolved on DC from acute care Pt without abd pain today continued on augmentin bid - no stop date- will call acute care and see if there was a stop date planned. WBC wnl monitor for pain mgmt Congestive heart failure 79239209 I50.22 lasix 20mg on mon, wed, fri metoprolol XL 50mg qd (hold for SBP<100), spironolac tone 12.5mg bid f/u with cards monitor resp status, fluid status, daily weights Coronary arteriosclerosis 78838373 I25.10 atorvastat in 80mg qd metoprolol XL 50mg qd nitroglyce rin SL tab q5min for 3 doses monitor lfts prn Gastroesop hageal reflux disease without esophagitis 467190896 K21.9 [place]opraz[place] 40[place] [id number] Mohsen Collins MD [address] [address] 04/10/2019 11:20:58 04/12/2019 14:47:48 Acute cholecystitis 64102492 K81.0 see HPIconserv ative management monitor sxrefer back to surger for change in condition Asthenia 06541383 R53.1 PT OT eval and treatmonit or fall riskwas ambulating with walker prior Chronic at rial fibrillation 989534245 I48.21 monitor and adjust coumadinmo nitor for rate control Congestive heart failure 74828889 I50.22 monitor respirator y function and fluid statusfoll ow weightstit rate meds prn Gastroesop hageal reflux disease without esophagitis 918115232 K21.9 stable on PPImonitor for sx control Essential hypertension 32402609 I10 monitor and titrate current medsfollow ed by gertrude gardner with concerns [id number] Marcelina Ponce [address] [address] 04/11/2019 13:13:45 04/18/2019 08:34:20 Acute cholecystitis 10002538 K81.0 see HPIconserv ative management monitor sxrefer back to surger for change in condition Asthenia 70125300 R53.1 PT OT eval and treatmonit or fall riskwas ambulating with walker prior Chronic at rial fibrillation 664341152 I48.21 monitor and adjust coumadinmo nitor for rate control Osteoarthr itis of left knee joint 0818069692 93171 M17.12 pt getting lidocaine patch to bilat knees, muscle rub D/C tramadol today- believe this may be causing increased confusion/ lethargy continue apap 1,000mg tid prn awaiting f/u with ortho, ?need for steroidal injections monitor for pain mgmt continue with PT/OT to maximize function as tolerated. History of deep vein thrombosis 148264679 Z86.718 DVT to the RUE in acute care swelling has improved lovenox now DCd, pt remains on coumadin continue coumadin and titrate prn monitor Essential hypertension 51270989 I10 stable lasix 20mg on wed, wed, wed metoprolol XL 50mg qd (hold for SBP<100), spironolac tone 12.5mg bid entresto 49/51mg bid (to change down to 24/26mg bid dose for consistent SBP<100) monitor bp, labs Pain in left arm 6706615 00 M79.602 see HPI pain to left [...] DC of tramadol. monitor Congestive heart failure 44325015 I50.22 lasix 20mg on wed, wed, wed metoprolol XL 50mg qd (hold for SBP<100), spironolac tone 12.5mg bid f/u with cards monitor resp status, fluid status, daily weights [id number] JORDON MENENDEZ [address] [place] [address] 12/08/2019 08:07:07 12/11/2019 16:45:18 Chronic atrial fibrillation 468574541 I48.20 lasix 40 mg daily metoprolol er 50 mg hs Congestive heart failure 52592804 I50.9 lasix 40 mg daily monitor resp status Essential hypertension 43223835 I10 metoprolol 50 mg hs monitor bp Hyperlipidemia 84523516 E78.5 lipitor 80 mg daily Acute urin polina tract infection 885787313 N39.0 cefuroxime 250 mg bid to 12/11 Gout 25587612 M10.9 predisone taper norco 5/325 q4hr prn diclofenac 1% to knees [id number] Inge Rodríguez MD [address] [address] 12/12/2019 18:51:23 12/18/2019 10:30:51 Chronic atrial fibrillation 968023808 I48.21 Rate in good control on metoprolol as above. Not on AC Monitor HR Congestive heart failure 84052643 I50.22 I25.5 Z95.810 Pt. feels back to baseline. Continue lasix 40 mg qd and metoprolol 50 mg qd. Very deconditio ellis, needs PT/OT for strengthen ing and function. Monitor resp. status, fluid status, wts and labs. Essential hypertension 03606795 I10 In good control on meds as above. Monitor BP and labs Hyperlipidemia 57637430 E78.49 Continue atorvastat in 80 mg qd. Monitor labs as outpt. Acute urin polina tract infection 598387452 N30.00 Completes course of cefuroxime 250 mg BID today. Monitor for recurrence . Gout 02751355 M10.072 Doing well. Continue prednisone taper, to complete 12/17 Pain much improved, will decrease hydrocodon e/APAP 5/325 to q 6 hrs prn. Contine diclofenac 1% to knees and lidocaine patch. Monitor sxs. Acute-on-c hronic renal failure 722246801 N17.8 N18.2 BUN/cr in 07/2019 was 27/1.2, so sig worse than baseline still. Continue to avoid nephrotoxi c meds. Monitor labs. Renal consult. [id number] JORDON MENENDEZ [address] [place] [address] 12/13/2019 09:32:51 12/15/2019 09:06:00 Congestive heart failure 51065373 I50.9 lasix 40 mg daily monitor resp status Gout 31478424 M10.9 predisone taper to 12/17 norco 5/325 q4hr prn diclofenac 1% to knees 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 402603741 E11.9 diet controlled , not on meds for this accucheck prn [id number] JORDON MENENDEZ [address] [place] [address] 12/18/2019 09:46:04 12/21/2019 15:26:11 Congestive heart failure 56242689 I50.9 lasix 40 mg daily monitor resp status Essential hypertension 90767085 I10 metoprolol 50 mg hs monitor bp 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 420923617 E11.9 diet controlled , not on meds for this accucheck prn [id number] LORNAJr SAUCEDO NP RORY TARANGO [address] [place] [address] 12/25/2019 10:13:38 12/27/2019 10:05:24 Gout 96379066 M10.9 predisone taper 20 mg daily ax4 days, then 10 mg daily x4 days norco 5/325 q4hr prn diclofenac 1% to knees Asthenia 03388559 R53.1 PT OT eval and treat monitor fall risk was ambulating with walker prior [id number] LORNA SAUCEDO NP [address] [address] 01/01/2020 12:24:46 01/04/2020 12:53:43 Gout 72139412 M10.9 predisone taper 20 mg daily ax4 days, then 10 mg daily x4 days norco 5/325 q4hr prn diclofenac 1% to knees Asthenia 74416475 R53.1 PT OT eval and treat monitor fall risk was ambulating with walker prior [id number] LORNA SAUCEDO NP [address] [address] 01/05/2020 08:36:09 01/08/2020 13:24:34 Mqdsb-xf-yhacvbs renal failure 867386873 N18.9 monitor labs Asthenia 58694415 R53.1 PT OT eval and treat monitor fall risk was ambulating with walker prior Chronic at rial fibrillation 043110993 I48.20 lasix 40 mg daily metoprolol er 50 mg hs Congestive heart failure 70909328 I50.9 lasix 40 mg daily monitor resp status Coronary arteriosclerosis 39822098 I25.10 monitor for any symptoms Essential hypertension 31809113 I10 metoprolol 50 mg hs monitor bp Gastroesop hageal reflux disease without esophagitis 790370113 K21.9 monitor for symptoms Gout 81885750 M10.9 norco 5/325 q4hr prn diclofenac 1% to knees Hyperlipidemia 79703308 E78.5 lipitor 80 mg daily 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 650468448 E11.9 diet controlled , not on meds for this accucheck prn [id number] LORNA SAUCEDO NP [address] [address] 04/19/2020 07:49:30 04/23/2020 08:17:38 Chronic atrial fibrillation 686620239 I48.20 lasix 40 mg daily metoprolol er 50 mg hs Congestive heart failure 67120078 I50.9 lasix 40 mg daily monitor resp status Coronary arteriosclerosis 70007133 I25.10 monitor for any symptoms Disorder o f urinary bladder 89738642 N32.9 myrbetriq 50 mg daily Essential hypertension 12417506 I10 metoprolol 50 mg hs monitor bp Gastroesop hageal reflux disease without esophagitis 436203398 K21.9 protonix 40 mg daily Gout 69973860 M10.9 allopurino l 100 mg daily lidocaine patch daily right knee diclofenac 1% to knees 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 013921990 E11.9 diet controlled , not on meds for this accucheck prn Hyperlipidemia 19184412 E78.5 lipitor 80 mg daily [id number] Inge Rodríguez MD [address] [address] 04/22/2020 13:43:45 04/25/2020 11:37:29 Congestive heart failure 07357873 I50.22 I25.5 Z95.810 Appears euvolemic. Continue lasix 40 mg qd and metoprolol 150 mg qd. Monitor resp. status, fluid status, wts and labs. Acute-on-c hronic renal failure 485775419 N17.8 N18.2 At new baseline. Continue to avoid nephrotoxi c meds. Monitor labs. Renal consult prn. Chronic at rial fibrillation 399006771 I48.21 Rate in good control on metoprolol as above. Not on AC Monitor HR Essential hypertension 41297837 I10 In good control on meds as above. Monitor BP and labs Hyperlipidemia 75043802 E78.49 Continue atorvastat in 80 mg qd. Monitor labs as outpt. Gout 97847084 M10.072 No current sxs. Elevated uric acid inpt. Continue allopurino l 100 mg qd. and colchicine prn. Monitor sxs. and recheck uric acid prn. Coronary arteriosclerosis 59299145 I25.10 monitor for any symptoms Gastroesop hageal reflux disease without esophagitis 437791886 K21.9 No current sxs. Continue pantoprazo le 40 mg qd. Monitor for sxs. 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 781612682 E11.9 diet controlled , not on meds for this Check accuchecks prn Bilateral knee pain 1187 506624 0966345 M25.561 M25.562 M15.0 Scheduled for TKR on [...] function. Monitor pain relief. Overactive urinary bladder 345803232 N32.81 Continue myrbetriq 50 mg qd. monitor sxs. [id number] JORDON MENENDEZ [address] [place] [address] 04/29/2020 07:38:33 05/01/2020 11:27:39 Acute urinary tract infection 294532105 N39.0 recovered Acute-on-c hronic renal failure 754701777 N18.9 monitor labs Asthenia 43369300 R53.1 PT OT eval and treat monitor fall risk was ambulating with walker prior Cholecystitis 07566293 K 81.9 recovered Chronic at rial fibrillation 160577543 I48.20 lasix 40 mg daily metoprolol er 50 mg hs Congestive heart failure 74619611 I50.9 lasix 40 mg daily monitor resp status Coronary arteriosclerosis 92958996 I25.10 monitor for any symptoms Disorder o f urinary bladder 35232847 N32.9 myrbetriq 50 mg daily Essential hypertension 60053433 I10 metoprolol 150 mg hs monitor bp Gastroesop hageal reflux disease without esophagitis 289329599 K21.9 protonix 40 mg dailytums q4 hr prn Gout 98455063 M10.9 allopurino l 100 mg daily lidocaine patch daily right knee diclofenac 1% to knees bid cholchecin e 0.6 2-tabs the 0.6 mg qd prn vicodin 5/325 mg q4 hr prn History of deep vein thrombosis 287383080 Z86.718 resolved Hyperlipidemia 77603957 E78.5 lipitor 80 mg daily Overactive urinary bladder 503641818 N32.81 myrbetriq 50 mg qd. monitor sxs. Renal mass 939635872 N28 .89 f/u with nephrologi st 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 313485603 E11.9 diet controlled , not on meds for this accucheck prn [id number] JORDON MENENDEZ [address] [place] [address] [place] [address] 05/31/2020 07:34:55 06/05/2020 10:23:00 Type 2 diabetes mellitus without complication 711476889 E11.9 diet controlled , not on meds for this accucheck prn Renal mass 364463440 N28 .89 f/u with nephrologi st Overactive urinary bladder 247506457 N32.81 myrbetriq 50 mg qd.monitor sxs. Hyperlipidemia 40421315 E78.5 atorvastat in 80 mg daily History of deep vein thrombosis 385366712 Z86.718 xarelto 10 mg daily Gout 33754041 M10.9 allopurino l 100 mg daily lidocaine patch daily right knee diclofenac 1% to knees bid cholchecin e 0.6 2-tabs the 0.6 mg qd prn oxycodone 5 mg q4 hrprn tramadol 50 mg q4 hr prn Gastroesop hageal reflux disease without esophagitis 576190140 K21.9 protonix 40 mg dailytums q4 hr prn Essential hypertension 53520945 I10 metoprolol er 100 mg hs monitor bp Coronary arteriosclerosis 73651804 I25.10 monitor for any symptoms Congestive heart failure 36198761 I50.9 lasix 40 mg daily monitor resp status Chronic at rial fibrillation 321465001 I48.20 lasix 40 mg daily metoprolol er 50 mg hs Pain in left knee 649750 3773 91838 M25.562 oxycodone 5 mg q4 hrprn tramadol 50 mg q4 hr prn [id number] MD RORY Becerril [address] [place] [address] 06/03/2020 13:11:50 06/11/2020 14:52:39 Degenerative joint disease involving multiple joints 410022405 M15.0 Z96.652 S/P TKR on 05/23. Needs [...] Monitor pain relief. Bilateral knee pain 1187 275150 3478729 M25.561 M25.562 M15.0 With continued right knee pain also. Continue PT/OT as above. Monitor pain relief. Congestive heart failure 55673545 I50.22 I25.5 Z95.810 Appears euvolemic. Continue lasix 40 mg qd and metoprolol 100 mg qd. Monitor resp. status, fluid status, wts and labs. Acute-on-c hronic renal failure 218523778 N17.8 N18.2 Stable at new baseline. Continue to avoid nephrotoxi c meds. Monitor labs. Renal consult prn. Chronic at rial fibrillation 009416083 I48.21 Rate in good control on metoprolol 100 mg qd Now on rivaroxaba n for DVT prophylaxi s, may continue group home for afib. Monitor HR Essential hypertension 42417889 I10 In good control on meds as above. Monitor BP and labs Hyperlipidemia 00675656 E78.49 Continue atorvastat in 80 mg qd. Monitor labs as outpt. Gout 62866828 M10.072 No current sxs., but with elevated uric acid inpt. Continue allopurino l 100 mg qd. and use colchicine prn sxs. Monitor sxs. and recheck uric acid prn. Coronary arteriosclerosis 88824260 I25.10 Continue meds as above. Monitor for any symptoms F/U with cardio as planned. Gastroesop hageal reflux disease without esophagitis 124918235 K21.9 No current sxs. Continue pantoprazo le 40 mg qd. Monitor for sxs. 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 Monitor accuchecks prn Overactive urinary bladder 910470730 N32.81 Continue myrbetriq 50 mg qd. monitor sxs. Constipation 26812547 K5 9.03 No BM since transfer here. Says she doesn't usually have problems at home, so likely due to meds and immobility . Will continue colace 100 mg BID and give dose of MOM tonight and consider other meds if no BM by tomorrow. Monitor bowel function. [id number] LORNA SAUCEDO NP [address] [address] 06/04/2020 08:11:50 06/07/2020 13:33:34 Pain in left knee 3016020167 37978 M25.562 oxycodone 5 mg q4 hrprn tramadol 50 mg q4 hr prnPT OT eval and treat Congestive heart failure 50878314 I50.9 lasix 40 mg daily monitor resp status [id number] LORNA SAUCEDO NP [address] [address] 06/07/2020 11:43:39 06/11/2020 15:04:18 Pain in left knee 9675799844 05715 M25.562 oxycodone 5 mg q4 hr prn tramadol 50 mg q4 hr prn PT OT eval and treat Gastroesop hageal reflux disease without esophagitis 096528690 K21.9 protonix 40 mg dailytums q4 hr prn History of deep vein thrombosis 276403787 Z86.718 xarelto 10 mg daily [id number] LORNA SAUCEDO NP [address] [address] 06/10/2020 15:29:11 06/13/2020 15:30:41 Pain in left knee 1306134765 80401 M25.562 oxycodone 5 mg q4 hr prn, [...] for DVT prophylaxi s. Monitor pain relief [id number] LORNA SAUCEDO NP [address] [address] 06/14/2020 12:44:17 06/17/2020 16:30:53 Degenerative joint disease involving multiple joints M15.9 Needs PT/OT for strengthen ing, balance, gait training, safety and function. oxycodone 7.5 mg qAM and 5 mg q 4 hrs prn. APAP 1000 mg TID. tramadol 50 mg q 4 hrs prn rivaroxaba n 10 mg qd for DVT prophylaxi s. Monitor pain relief Pain in left knee 921318 1068 28778 M25.562 oxycodone 5 mg q4 hr prn, 7.5 mg am tramadol 50 mg q4 hr prn PT OT eval and treat [id number] LORNA SAUCEDO NP [address] [address] 06/25/2020 08:29:30 06/27/2020 09:37:45 Kgmnz-ho-ieyivpe renal failure 278054415 N18.9 monitor labs Asthenia 45222903 R53.1 PT OT eval and treat monitor fall risk was ambulating with walker prior Cholecystitis 12900981 K 81.9 recovered Chronic at rial fibrillation 219063703 I48.20 lasix 40 mg daily metoprolol er 50 mg hs Congestive heart failure 99182088 I50.9 lasix 40 mg daily monitor resp status Constipation 53634298 K5 9.00 miralax daily Coronary arteriosclerosis 64296444 I25.10 monitor for any symptoms Degenerati ve joint disease involving multiple joints M15.9 Needs PT/OT for strengthen ing, balance, gait training, safety and function. oxycodone 7.5 mg prn. APAP 1000 mg TID. rivaroxaba n 10 mg qd for DVT prophylaxi s. Monitor pain relief Disorder o f urinary bladder 11896323 N32.9 myrbetriq 50 mg daily Essential hypertension 02421624 I10 metoprolol er 100 mg hs monitor bp Gastroesop hageal reflux disease without esophagitis 525465728 K21.9 protonix 40 mg dailytums q4 hr prn Gout 72421060 M10.9 allopurino l 100 mg daily lidocaine patch daily right knee diclofenac 1% to knees bid cholchecin e 0.6 2-tabs the 0.6 mg qd prn oxycodone 7.5 mg q4 hrprn tramadol 50 mg q4 hr prn Hyperlipidemia 21502128 E78.5 atorvastat in 80 mg daily Pain in left knee 645087 4956 71487 M25.562 oxycodone 7.5 mg q4 hr prn tramadol 50 mg q4 hr prn PT OT eval and treat 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 867351066 E11.9 diet controlled , not on meds for this accucheck prn [id number] JORDON MENENDEZ SUKHDEEP [address] [place] [address] [place] [address] 07/02/2020 07:59:13 07/04/2020 13:33:53 Acute urinary tract infection 405079341 N39.0 recovered Acute-on-c hronic renal failure 834962604 N18.9 monitor labs Asthenia 90175469 R53.1 PT OT eval and treat monitor fall risk was ambulating with walker prior Cholecystitis 46786374 K 81.9 recovered Chronic at rial fibrillation 025142504 I48.20 lasix 40 mg daily metoprolol er 100 mg hs Congestive heart failure 79445759 I50.9 lasix 40 mg daily monitor resp status Constipation 20051791 K5 9.00 miralax daily Coronary arteriosclerosis 37949091 I25.10 monitor for any symptoms Degenerati ve joint disease involving multiple joints 422443408 M15.9 Needs PT/OT for strengthen ing, balance, gait training, safety and function. APAP 1000 mg TID. rivaroxaba n 10 mg qd for DVT prophylaxi s. Monitor pain relief Disorder o f urinary bladder 71379512 N32.9 myrbetriq 50 mg daily Essential hypertension 13455674 I10 metoprolol er 100 mg hs monitor bp Gastroesop hageal reflux disease without esophagitis 310040456 K21.9 protonix 40 mg dailytums q4 hr prn Gout 27969832 M10.9 allopurino l 100 mg daily lidocaine patch daily right knee diclofenac 1% to knees bid cholchecin e 0.6 2-tabs the 0.6 mg qd prn History of deep vein thrombosis 605106383 Z86.718 xarelto 10 mg daily Hyperlipidemia 96914657 E78.5 atorvastat in 80 mg daily Overactive urinary bladder 518693418 N32.81 myrbetriq 50 mg qd.monitor sxs. Pain in left knee 117504 9793 90647 M25.562 lidoderm patch daily prn PT OT eval and treat Renal mass 003301799 N28 .89 f/u with nephrologi st 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 743535202 E11.9 diet controlled , not on meds for this accucheck prn [id number] JORDON MENENDEZ [address] [place] [address] 12/03/2020 08:55:59 12/10/2020 09:17:00 Degenerative joint disease involving multiple joints 162524870 M15.9 Needs PT/OT for strengthen ing, balance, gait training, safety and function tizanadine 2 mg tid tramadol 50-100 mg q6hr prn x 7 days. APAP 650 mg q6hr . rivaroxaba n 10 mg qd for DVT prophylaxi s. Monitor pain relief Surgical i ncision wound of skin 9163197050 00 R23.8 monitor for any signs of infectionf u NEOS 12/10 as planned Acute-on-c hronic renal failure 584466876 N18.9 monitor labs Asthenia 66349187 R53.1 PT OT eval and treat monitor fall risk was ambulating with walker prior Cholecystitis 16452589 K 81.9 recovered Chronic at rial fibrillation 282930106 I48.20 lasix 40 mg am, 20 mg pm, Fri, Sat, Sun metoprolol er 100 mg hs Congestive heart failure 54697225 I50.9 lasix 40 mg am, 20 mg pm, Fri, Sat, Sun monitor resp status Constipation 64124180 K5 9.00 miralax daily prncolace bid Coronary arteriosclerosis 44612664 I25.10 monitor for any symptoms Disorder o f urinary bladder 10692690 N32.9 myrbetriq 50 mg daily Essential hypertension 90497327 I10 metoprolol er 100 mg hs monitor bp Gastroesop hageal reflux disease without esophagitis 324903574 K21.9 protonix 40 mg dailytums q4 hr prn Gout 79481945 M10.9 allopurino l 100 mg daily lidocaine patch daily right knee diclofenac 1% to knees bid prn cholchecin e 0.6 2-tabs qd prn Hyperlipidemia 44998974 E78.5 atorvastat in 80 mg daily Overactive urinary bladder 290936017 N32.81 myrbetriq 50 mg qd.monitor sxs. 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 707441790 E11.9 diet controlled , not on meds for this accucheck prn [id number] JORDON MENENDEZ SUKHDEEP [address] [place] [address] 12/04/2020 11:19:28 12/06/2020 13:53:27 Asthenia 62951662 R53.1 PT OT eval and treat monitor fall risk was ambulating with walker prior Surgical i ncision wound of skin 1469544328 00 R23.8 monitor for any signs of infectionf u NEOS 12/10 as planned Pain in right knee 50755 51439 74063 M25.561 tramadol 50 mg q6hr scheduledt izanadine 4 mg [id number] one 5 g q6hr prnknee immobilize r at night only [id number] JORDON MENENDEZ [address] [address] 12/11/2020 08:21:46 12/13/2020 15:18:13 Pain in right knee 6198643798 09828 M25.561 tramadol 50 mg q6hr scheduledt izanadine 2 mg [id number] one 5-10 mg q4hr prnknee immobilize r Surgical i ncision wound of skin 6319724449 00 R23.8 monitor for any signs of infectionf /u NEOS 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 656631658 E11.9 diet controlled , not on meds for this accucheck prn Overactive urinary bladder 429693671 N32.81 myrbetriq 50 mg qd.monitor sxs. Hyperlipidemia 68808361 E78.5 atorvastat in 80 mg daily History of deep vein thrombosis 768820672 Z86.718 xarelto 10 mg daily Gout 99983277 M10.9 allopurino l 100 mg daily lidocaine patch daily right knee diclofenac 1% to knees bid prn cholchecin e 0.6 2-tabs qd prn Gastroesop hageal reflux disease without esophagitis 541015290 K21.9 protonix 40 mg dailytums q4 hr prn Essential hypertension 60796069 I10 metoprolol er 100 mg hs monitor bp Degenerati ve joint disease involving multiple joints 685004916 M15.9 Needs PT/OT for strengthen ing, balance, gait training, safety and function tizanadine 2 mg tid tramadol 50 mg qid -100 mg q6hr prn APAP 650 mg q6hr . rivaroxaba n 10 mg qd for DVT prophylaxi s. Monitor pain relief Coronary arteriosclerosis 05210620 I25.10 monitor for any symptoms Constipation 43947892 K5 9.00 miralax daily prncolace bid Congestive heart failure 54367335 I50.9 lasix 40 mg am monitor resp status Chronic at rial fibrillation 667858497 I48.20 lasix 40 mg am metoprolol er 100 mg hs Asthenia 73783180 R53.1 PT OT eval and treat monitor fall risk was ambulating with walker prior Acute-on-c hronic renal failure 795805295 N18.9 monitor labs [id number] Inge Rodríguez MD [facility] [address] [place] [address] rd [place] [address] 12/12/2020 16:13:14 12/17/2020 11:12:37 Pain in right knee 7865081877 74931 M25.561 Still with sig. pain, but relieved [...] 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 848689896 E11.9 Diet controlled .Monitor sugars prn. Overactive urinary bladder 042992864 N32.81 Continue myrbetriq 50 mg qd.Monitor urinary function. Hyperlipidemia 94695243 E78.49 Continue atorvastat in 80 mg qd.Monitor labs as outpt. History of deep vein thrombosis 643304662 Z86.718 Currently on Xarelto for DVT prophylaxi s. But not on it group home due to hx of GI bleed.Lorna tor for sxs. Gout 90993119 M10.09 Continue allopurino l 100 mg qd and colchicine 0.6 2 tabs qd prn for flares.Mon itro for sxs. Gastroesop hageal reflux disease without esophagitis 065413062 K21.9 No current sxs.Contin ue pantoprazo le 40 mg qd and tums q 4 hrs prnMonitor for sxs. Essential hypertension 85717187 I10 Good control on metoprolol ER 100 mg qd..Monito r BP and labs. Degenerati ve joint disease involving multiple joints 754568222 M15.0 Continue pain meds as above.Lorna tor sxs. Coronary arteriosclerosis 95082661 I25.10 With sig. hx.Continu e metoprolol as above.F/U with cardio as planned. Constipation 86210159 K5 9.09 miralax daily prncolace bid Congestive heart failure 60646548 I50.[address]Appe ars euvolemic. Continue metoprolol 100 mg qd and lasix 40 mg amMonitor resp. status, fluid status, wts and labs. Chronic at rial fibrillation 044404894 I48.0 Rate in good control on metoprolol ER 100 mg qd.Not on chronic AC due to GI bleed. Currently on Xarelto for 30 days post-op.Mo nitor HR and bleeding risk. Chronic ki dney disease stage 3A 858169906 N18.31 Stable at baseline.C ontinue to avoid nephrotoxi c meds as able.Monit or labs.Renal consult prn. [id number] LORNA SAUCEDO NP [facility] SUKHDEEP [address] [place] [address] 12/13/2020 12:39:28 12/17/2020 12:46:43 Pain in right knee 3365732735 16688 M25.561 tramadol 50 mg q6hr scheduledt izanadine 2 mg l9vwparbmz one 5-10 mg q4hr prnknee immobilize r Surgical i ncision wound of skin 0364706182 00 R23.8 monitor for any signs of infectionf /u NEOS [id number] LORNA SAUCEDO NP [address] [address] 12/16/2020 10:18:46 12/17/2020 13:39:35 Asthenia 08435529 R53.1 PT OT eval and treat monitor fall risk was ambulating with walker prior Pain in right knee 95722 97269 37732 M25.561 tramadol 50 mg q6hr scheduledt izanadine 2 mg m6yargaceb one 5-10 mg q4hr prnknee immobilize r [id number] LORNA SAUCEDO NP [address] [address] 12/20/2020 12:36:08 12/24/2020 11:10:32 Gout 01978116 M10.09 allopurino l 100 mg daily lidocaine patch daily right knee diclofenac 1% to knees bid prn cholchecin e 0.6 2-tabs qd prn Pain in right knee 36739 12882 24971 M25.561 tramadol 50 mg q6hr scheduledt izanadine 2 mg l8acsrammd one 5-10 mg q4hr prnknee immobilize r Surgical i ncision wound of skin 1010865589 00 R23.8 monitor for any signs of infectionf /u NEOS [id number] LORNA SAUCEDO NP RORY TARANGO [address] [place] [address] 12/23/2020 08:51:19 12/25/2020 15:10:59 Degenerative joint disease involving multiple joints 309138140 M15.0 Needs PT/OT for strengthen ing, balance, gait training, safety and function tizanadine 2 mg tid tramadol 50 mg qid -100 mg q6hr prn APAP 650 mg q6hr . rivaroxaba n 10 mg qd for DVT prophylaxi s. Monitor pain relief Surgical i ncision wound of skin 8344031178 00 R23.8 monitor for any signs of infectionf /u NEOS Pain in right knee 25388 41964 16786 M25.561 tramadol 50 mg q6hr scheduledt izanadine 2 mg l5yhvxjnsq one 5-10 mg q4hr prnknee immobilize r Gout 99154002 M10.09 allopurino l 100 mg daily lidocaine patch daily right knee diclofenac 1% to knees bid prn cholchecin e 0.6 2-tabs qd prn- hold during naproxynna proxyn 500 mg bid x 7 days [id number] JORDON MENENDEZ [address] [place] [address] 12/27/2020 11:12:53 12/30/2020 15:10:57 Surgical incision wound of skin 9888103311 00 R23.8 monitor for any signs of infectionf /u NEOS Pain in right knee 06283 31945 23410 M25.561 tramadol 50 mg q6hr scheduledt izanadine 2 mg k0yneiabbx one 5-10 mg q4hr prn [id number] JORDON MENENDEZ [address] [place] [address] 12/30/2020 10:50:14 01/01/2021 14:58:34 Surgical incision wound of skin 3996112960 00 R23.8 monitor for any signs of infectionf /u NEOS Pain in right knee 12542 37337 95623 M25.561 tramadol 50 mg q6hr scheduled- change to q8 hr for 7 daystizana dine 2 mg o1euxanmmr one 5-10 mg q4hr prn--d/c the 10 mg dose Asthenia 35935265 R53.1 PT OT eval and treat monitor fall risk was ambulating with walker prior [id number] JORDON MENENDEZ [address] [place] [address] 12/31/2020 10:59:03 01/01/2021 15:38:08 Gwjja-jj-jnzxrlv renal failure 052596899 N18.9 monitor labssend to ED for JOSE CARLOS [id number] JORDON MENENDEZ SUKHDEEP [address] [place] [address] [place] [address] 01/07/2021 08:34:28 01/09/2021 14:53:44 Xzplk-fw-sypeual renal failure 623775055 N18.9 monitor labssend to ED for JOSE CARLOS Asthenia 55735677 R53.1 PT OT eval and treat monitor fall risk was ambulating with walker prior Chronic at rial fibrillation 354083639 I48.0 lasix 40 mg daily, 20 mg Fr/Sa/Ching metoprolol er 100 mg hs Chronic ki dney disease stage 3A 408040462 N18.31 monitor labs and urine output Congestive heart failure 56287625 I50.22 lasix 40 mg daily, 20 mg Fr/Sa/Ching monitor resp status Constipation 98526225 K5 9.09 miralax daily prncolace bid Degenerati ve joint disease involving multiple joints 916789306 M15.0 Needs PT/OT for strengthen ing, balance, gait training, safety and function APAP 650 mg q6hr .oxycodone 5 mg q4hr prnMonitor pain relief Coronary arteriosclerosis 63661275 I25.10 monitor for any symptoms Disorder o f urinary bladder 16461332 N32.9 myrbetriq 50 mg daily Essential hypertension 76258728 I10 metoprolol er 100 mg hs monitor bp Gastroesop hageal reflux disease without esophagitis 394384440 K21.9 protonix 40 mg dailytums q4 hr prn Gout 47452578 M10.09 allopurino l 100 mg daily diclofenac 1% to knees bid prn cholchecin e 0.6 2-tabs qd prn History of deep vein thrombosis 988971206 Z86.718 monitor Hyperlipidemia 51460476 E78.49 atorvastat in 80 mg daily Overactive urinary bladder 466581295 N32.81 myrbetriq 50 mg qd.monitor sxs. Pain in right knee 92969 04346 79828 M25.561 oxycodone 5 mg q4hr prn Renal mass 661469255 N28 .89 f/u with nephrologi stmonitor labs Surgical i ncision wound of skin 4525064502 00 R23.8 monitor for any signs of infectionf /u NEOS 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 516309802 E11.9 diet controlled , not on meds for this accucheck prnlispro sliding scale [id number] Inge Rodríguez MD [address] [place] [address] 01/09/2021 15:45:40 01/14/2021 12:02:05 Obryt-xo-rxbqfyq renal failure 134586809 N18.9 Almost back to baseline.C ontinue to avoid nephrotoxi c meds as able.Ginette nue to encourage po fluids.Mon itor labs.Renal f/u as planned. Asthenia 72405710 R53.1 Continues to be very deconditio ellis, due to multiple complicati ons since original admission. Needs PT/OT for strengthen ing, balance, gait training, safety and function.C ontinue fall precaution s.Monitor for safety. Chronic at rial fibrillation 586333388 I48.0 Rate in good control on metoprolol ER 100 mg qd.Not on chronic AC due to hx of GI bleed.Lorna tor HR and bleeding risk. Chronic ki dney disease stage 3A 070861314 N18.31 As above. Congestive heart failure 35091333 I50.[address]Appe ars euvolemic. Continue metoprolol 100 mg qd and lasix 40 mg qam with extra 20 mg at 2pm on Fr/Sa/SuMo nitor resp. status, fluid status, wts and labs. Constipation 27025028 K5 9.09 Continue bowel meds as ordered. Degenerati ve joint disease involving multiple joints 726667464 M15.0 Continue APAP 650 mg q 6 hrs prn, and oxycodone 5 mg q 4 hrs prnPT/OT as above.Lorna tor pain relief Coronary arteriosclerosis 12922597 I25.10 No current sxs.Contin eu meds as above.Lorna tor for sxs.F/U with cardio as planned. Renal mass 864993567 N28 .89 f/u with nephrologi stmonitor labs Surgical i ncision wound of skin 9599282055 00 R23.8 monitor for any signs of infectionf /u NEOS 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 083655084 E11.9 diet controlled , not on meds for this accucheck prnlispro sliding scale Pain in right knee 50676 81077 51879 M25.561 Still with sig. pain, but relieved [...] with ortho as planned. Overactive urinary bladder 633756361 N32.81 Continue myrbetriq 50 mg qd.Monitor urinary function. Hyperlipidemia 44770655 E78.49 Continue atorvastat in 80 mg qd.Monitor labs as outpt. History of deep vein thrombosis 543721576 Z86.718 No longer on ACMonitor for sxs. Gout 74663205 M10.09 Continue allopurino l 100 mg qd and colchicine 0.6 2 tabs qd prn for flares. Monitor for sxs. Gastroesop hageal reflux disease without esophagitis 118468084 K21.9 No current sxs.Contin ue pantoprazo le 40 mg qd and tums q 4 hrs prnMonitor for sxs. Essential hypertension 77202058 I10 Good control on meds as above.Lorna tor BP and labs. [id number] JORDON MENENDEZ [address] [place] [address] [place] [address] 01/10/2021 12:10:44 01/14/2021 12:05:06 Pain in right knee 0110646239 43030 M25.561 oxycodone 5 mg q4hr prn Surgical i ncision wound of skin 4398518396 00 R23.8 monitor for any signs of infectionf /u NEOS Asthenia 28139683 R53.1 PT OT eval and treat monitor fall risk was ambulating with walker prior [id number] JORDON MENENDEZ [address] [place] [address] rd [place] [address] 01/15/2021 08:23:33 01/17/2021 15:03:46 Surgical incision wound of skin 3181309153 00 R23.8 monitor for any signs of infectionf /u NEOS Pain in right knee 13601 22700 26197 M25.561 tylenol prn Acute-on-c hronic renal failure 057867737 N18.9 monitor labsimprov ing kidney function Asthenia 32601216 R53.1 PT OT eval and treat monitor fall risk was ambulating with walker prior Chronic at rial fibrillation 791781063 I48.0 lasix 40 mg daily, 20 mg Fr/Sa/Ching metoprolol er 100 mg hs Chronic ki dney disease stage 3A 347657065 N18.31 monitor labs and urine output Congestive heart failure 19946516 I50.22 lasix 40 mg daily, 20 mg Fr/Sa/Ching monitor resp status Constipation 91150632 K5 9.09 miralax daily prncolace bid Coronary arteriosclerosis 85575219 I25.10 monitor for any symptoms Degenerati ve joint disease involving multiple joints 018037158 M15.0 Needs PT/OT for strengthen ing, balance, gait training, safety and function APAP 650 mg q6hr . Monitor pain relief Disorder o f urinary bladder 63831199 N32.9 myrbetriq 50 mg daily Essential hypertension 09734350 I10 metoprolol er 100 mg hs monitor bp Gastroesop hageal reflux disease without esophagitis 132402993 K21.9 protonix 40 mg dailytums q4 hr prn Gout 26843892 M10.09 allopurino l 100 mg daily diclofenac 1% to knees bid prn cholchecin e 0.6 2-tabs qd prnnaproxy n 500 mg bid for 5 days to 01/19 History of deep vein thrombosis 004056955 Z86.718 monitor Hyperlipidemia 25754234 E78.49 atorvastat in 80 mg daily Overactive urinary bladder 225868930 N32.81 myrbetriq 50 mg qd.monitor sxs. 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 485972594 E11.9 diet controlled , not on meds for this accucheck prnlispro sliding scale Renal mass 023018169 N28 .89 f/u with nephrologi stmonitor labs [...] - FOR LIFE (MEDICARE SUPPLEMENT) Margo Fang [id number] [facility] 12/31/2020 1 MEDICARE B-[place]: [facility] [place] Marvel Leoncio [id number] [facility] 01/07/2021 2 WPS - FOR LIFE (MEDICARE SUPPLEMENT) Margo Leoncio [id number] [facility] 01/07/2021 1 MEDICARE B-[place]: [facility] [email or web address] [facility] [place] Marvel Leoncio [id number] [facility] 01/09/2021 2 WPS - FOR LIFE (MEDICARE SUPPLEMENT) Margo Leoncio [id number] [facility] 01/09/2021 1 MEDICARE B-[place]: [facility] [email or web address] [facility] [place] Marvel Fang [id number] [facility] 01/10/2021 2 WPS - FOR LIFE (MEDICARE SUPPLEMENT) Mrago Leoncio [id number] [facility] 01/10/2021 1 MEDICARE B-[place]: [facility] Margo Marvel Leoncio [id number] [facility] 01/15/2021 2 WPS - FOR LIFE (MEDICARE SUPPLEMENT) [place] Leoncio [id number] [facility] 01/15/2021 1 MEDICARE B-[place]: [facility] [place] Marvel Leoncio [id number] [place] [facility] Notes Date Note Type Note Provider [...] for further eval LORNA SAUCEDO NP [address] [facility] [address], [address], [place], [address], [employer] 12/31/2020 11:35:16 01/07/2021 text/html seen today for [...] cms, no nausea, ate well at breakfast, [employer]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 Inge Rodríguez MD [address], [address], [place], [address], [employer] 01/13/2021 20:29:24 01/10/2021 text/html seen today for a cute rounding visit, CAOx3 ambulating in the PT gym, gait more steady, right knee swelling almost gone, incision healed with a couple of small scabs, good cms to leg, she assures me she is voiding well and drinking well, staff report she has been voiding LORNA SAUCEDO NP [address], [address], [place], [address], [employer] 01/10/2021 12:19:50 01/15/2021 text/html seen today for [...] cms, no nausea, ate well at breakfast, 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
--- OUTSIDE RECORDS SUMMARY | 2024-05-26 17:00 | XMS_ITS | Continuity of Care Document ---
Author Organization Wound Care Address [address], [place] [address]- Support Name Relationship Address Phone ANI PEREZ [...] Unknown U navailable Care Team Providers Care Practice Billing Associate Name Role Phone Mannie MUÑOZ, Vee Primary Care Physician Encounter [facility] [id number] Date(s): 04/04/24 - 05/10/24 Wound Care [address] [place], [place] [address] Attending Physician: Farshad Pak MD Admitting Physician: [...] virus vaccine, inactivated 3 01/21/07 Gi tobi [id number] 12y+ bivalent booster vax 01/28/22 Recorded SARS-CoV-2 (COVID-19) mRNA BNT-162b2 vac 02/04/21 Recorded SARS-CoV-2 (COVID-19) Ad26 vaccine 06/19/20 Record ed pneumococcal 13-valent vaccine 08/09/14 Given pneumococcal 13-valent vaccine 08/09/14 Given tetanus/diphtheria/pertussis, acel(Tdap) 02/12/14 Given Fluzone (oldterm) 4 12/26/13 Given pneumococcal 23-valent vaccine 05/06/13 Given Influenza Virus Vaccine (oldterm) 5 05/15/08 Given Pneumococcal Vaccine (oldterm) 6 10/29/05 Given 1Result Comment: [facility] [id number] 2Result Comment: [facility] [id number] 3Admin Note: VIS GIVEN 4Admin Note: CDC VIS reviewed 5Admin Note: vis given 6Admin Note: vis given Medications Albuterol (Eqv-ProAir HFA) 90 mcg/inh inhalation aerosol 1 inhalation = 90 mcg, Inhalation, Every 4 hours, PRN as needed for shortness of breath or wheezing, # 6.7 Gm, 0 Refills, Maintenance, 05/06/24 9:51:00 AM EST, Aerosol, [facility], Partial fill upon patient request [...] EST, Route to Pharmacy Electronically, [id number], 157.9, cm, 12/21/23 15:16:00 EDT, [...] DX URINRY INCONTINENCE R39.81, SIM 99 VENU [phone], 02/13/22 2:43:00 PM EST, Supply Start Date: 02/13/22 Status: Ordered Quantity: 180.0 Unit: each Repeat number: 12 Indication: Unspecified urinary incontinence dextromethorphan-guaifenesin 10 mg-100 mg/5 mL oral liquid 10 mL, By Mouth, Every 4 hours, PRN Cough, # 120 mL, 0 Refills, Acute 05/19/24 12:00:00 PM EST, 05/06/24 9:50:00 AM EST, Syrup, [facility], Partial fill upon patient request [...] 1 Refills, Maintenance, 04/05/24 3:29:00 PM EST, [place], [id number], Partial fill [...] INCONTINENCE R39.81, SIM 99 RICK AND MARIE [phone], 02/13/22 2:45:00 PM EST, Supply Start Date: [...] Maintenance, 04/19/24 2:34:00 PM EST, [id number], 94, TAKE 30MLS (2 TABLESPOONS) [...] 8:38:00 AM EDT, Route to Pharmacy Electronically, [id number], Partialfill upon patient request if [...] 11 Refills, Maintenance, 11/30/23 7:46:00 AM EDT, [id number], 157.9, cm, 10/14/23 16:09:00 EDT, [...] Dr Dalal/ [facility] Social History Social History Type Response Smoking Status Former smoker; Tobac [employer] user in household: No; Other: start age 40 quit 2013; entered on: 01/07/18 Sex Sex Representation Female (finding) Patient Care team information Care Team Personnel Name: Alejo Cadet MD Position: [facility] Physician - Gastroenterology Member Role: Lifetime Consulting Physician Address: [address], [address] [facility] [place] [address]- Telecom: Name: Rafita Edward MD Position: [facility] Renal MD Member Role: Lifetime Consulting Physician Address: [address] [place] [address] [address] [place] [address]- Telecom: Name: Prashanth Rose RN Position: [facility] RN Member Role: Primary Care Nurse Name: Dorothea Wang RN Position: [facility] RN Member Role: Primary Care Nurse Name: Ledy Forbes RN Position: [facility] SN RN Member Role: Primary Care Nurse Name: Kavita Pagan RN Position: [facility] Onco RN Member Role: Primary Care Nurse Name: Prashanth Carmona RN Position: [facility] RN Member Role: Primary Care Nurse Name: Jaspreet Menchaca MD Position: [facility] Renal MD Member Role: Lifetime Consulting Physician Address: [address] [place] [address] [address] [facility] [place], [place] - Telecom: Name: Maryam Ayers RN Position: [facility] ED RN W/OE and Tasks Member Role: Primary Care Nurse Name: Maxine Diallo RN Position: [facility] AMB Nurse Member Role: Primary Care Nurse Name: Estephanie Carballo RN Position: [facility] RN Member Role: Primary Care Nurse Name: Odalys Chau RN Position: [facility] SN RN Member Role: Primary Care Nurse Name: Reji Willson RN Position: [facility] RN Member Role: Primary Care Nurse Name: Katie Holden RN Position: [facility] AMB Nurse Member Role: Primary Care Nurse Name: Evelyne Garcia RN Position: [facility] RN Member Role: Primary Care Nurse Name: Sol Nobles Position: [facility] AMB Nurse Member Role: Lifetime Consulting Physician Name: Johnna Baker RN Position: [facility] RN Member Role: Primary Care Nurse Name: Fantasma Ac RN Position: [facility] SN RN Member Role: Primary Care Nurse Name: Shanda Sharp RN Position: [facility] ED RN W/OE and Tasks Member Role: Primary Care Nurse Name: Sabi Ruiz Position: [facility] tenderizer tender Member Role: Thread Puller Name: Vee Chand MD Position: [facility] Physician - Primary Care Member Role: PCP Address: [address]rd Floor [facility] [place] [address]- [place] Telecom: Name: Ta Kolb RN Position: [facility] ED RN W/OE and Tasks Member Role: Primary Care Nurse Name: Neftaly Morley MD Position: [facility] Outreach Member Role: Lifetime Consulting Physician Address: [address] [facility] [place] [address]- [place] Telecom: Name: Eva Camarena RN Position: [facility] [place] Office Staff Member Role: Primary Care Nurse Name: Johnna Can CNM Position: [facility] Demurrage Clerk Member Role: Primary Care Nurse Address: [address] [place] [address]- [place] Telecom: Name: Brenda Brown RN Position: [facility] SN RN Member Role: Primary Care Nurse Name: David Mcwilliams MD Position: [facility] Renal MD Member Role: Lifetime Consulting Physician Address: [address] [facility] [place] [address]- [place] Telecom: Name: Michelle Castillo RN Position: [facility] RN Member Role: Primary Care Nurse Name: Sabi Grady RN Position: [facility] RN Member Role: Primary Care Nurse Name: Sheryl Gaytan Position: [facility] RN Member Role: Primary Care Nurse Name: Gonzalo Naylor RN Position: [facility] RN Member Role: Primary Care Nurse Care Team Related Persons Name: ANI PEREZ Name: STEFFANY FUENTES Insurance Providers Guarantor name: BEVERLY SOUZAWIN Health Plan Information #: 2 Payer: FOR LIFE MCR A ONLY Member Number: [id number] Policy Number: NA Group Number: NA Health Plan Information #: 1 Payer: MEDICARE PART B OUTPT Member Number: [id number] Policy Number: NA Group Number: NA
--- OUTSIDE RECORDS SUMMARY | 2024-05-26 17:01 | XMS_ITS | Continuity of Care Document ---
Author Organization [facility] Address [address] [place] [id number] Support Name Relationship Address Phone INGE PEREZ child Unknown Unavailable TORRES, CHASE Personal [...] CHASE Personal Relationship Unknown Unav ailable TORRES, MARGO Personal Relationship Unknown U navailable TORRES, CHASE Personal Relationship Unknown Unav ailable TORRES, CHASE Personal Relationship Unknown Unav ailable TORRES, CHASE Personal Relationship Unknown Unav ailable TORRES, CHASE Personal Relationship Unknown Unav ailable TORRES, CHASE Personal Relationship Unknown Unav ailable TORRES, MARGO Personal Relationship Unknown U navailable TORRES, CHASE Personal Relationship Unknown Unav ailable TORRES, CHASE Personal Relationship Unknown Unav ailable TORRES, CHASE Personal Relationship Unknown Unav ailable TORRES, MARGO Personal Relationship Unknown U navailable Care Team Providers Care Surgical Scrub Technologist Name Role Phone Mannie MUÑOZ, Vee Primary Care Physician Encounter [facility] Date(s): 05/04/24 - 05/06/[address] [id number] Encounter Diagnosis Influenza(Final) - 05/04/24 Shortness of breath(Final) - 05/04/24 Attending Physician: Virginia Rossi DO Admitting Physician: Magno MUÑOZ, Bud Perry Referring Physician: Not on Staff, Referring MD Encounter Type: Disch IP Allergies, Adverse Reactions, Alerts Substance Criticality Severity [...] virus vaccine, inactivated 3 01/21/07 Gi tobi [id number] 12y+ bivalent booster vax 01/28/22 Recorded SARS-CoV-2 (COVID-19) mRNA BNT-162b2 vac 02/04/21 Recorded SARS-CoV-2 (COVID-19) Ad26 vaccine 06/19/20 Record ed pneumococcal 13-valent vaccine 08/09/14 Given pneumococcal 13-valent vaccine 08/09/14 Given tetanus/diphtheria/pertussis, acel(Tdap) 02/12/14 Given Fluzone (oldterm) 4 12/26/13 Given pneumococcal 23-valent vaccine 2/15/14 Given Influenza Virus Vaccine (oldterm) 5 05/15/08 Given Pneumococcal Vaccine (oldterm) 6 10/29/05 Given 1Result Comment: [facility] [id number] 2Result Comment: [facility] [id number] 3Admin Note: VIS GIVEN 4Admin Note: [facility] VIS reviewed 5Admin Note: vis given 6Admin Note: vis given Medications Acetaminophen Tablet 650 mg, Tablet, By Mouth, Every 4 hours, PRN for Pain , Mild, Temperature Greater than 100.5, Routine, 05/04/24 2:58:00 PM EST Start Date: 05/04/24 Stop Date: 05/06/24 Status: Discontinued Repeat number: 1 Albuterol (Eqv-ProAir HFA) 90 mcg/inh inhalation aerosol 1 inhalation = 90 mcg, Inhalation, Every 4 hours, PRN as needed for shortness of breath or wheezing, # 6.7 Gm, 0 Refills, Maintenance, 05/06/24 9:51:00 AM EST, Aerosol, [facility], Partial fill upon patient request [...] EST, Route to Pharmacy Electronically, [id number], 157.9, cm, 12/21/23 15:16:00 EDT, [...] DX URINRY INCONTINENCE R39.81, SIM 99 VENU [phone], 02/13/22 2:43:00 PM EST, Supply Start Date: 02/13/22 Status: Ordered Quantity: 180.0 Unit: each Repeat number: 12 Indication: Unspecified urinary incontinence dextromethorphan-guaifenesin 10 mg-100 mg/5 mL oral liquid 10 mL, By Mouth, Every 4 hours, PRN Cough, # 120 mL, 0 Refills, Acute 05/19/24 12:00:00 PM EST, 05/06/24 9:50:00 AM EST, Syrup, [facility], Partial fill upon patient request if [...] 1 Refills, Maintenance, 04/05/24 3:29:00 PM EST, [place], [id number], Partial fill [...] INCONTINENCE R39.81, SIM 99 RICK AND MARIE [phone], 02/13/22 2:45:00 PM EST, Supply Start Date: [...] ER 100 mg oral tablet, extended release 100 mg, XL Tablet, By Mouth, Hold for: SBP<110 or HR<60, 05/06/24 9:00:00 AM EST Start Date: 05/06/24 Stop Date: 05/06/24 Status: Completed Repeat number: 1 Metoprolol Succinate ER 100 [...] 11:45:00 AM EST, 05/06/24 9:49:00 AMEST, Capsule, [facility], Partial fill upon patient request [...] Dr Dalal/ [facility] Results Radiology Reports * Exam Date Time Procedure Performing Provider Status 05/04/24 8:09 AM Chest 2 Views Frontal and Lat Sabra Bailey; Aubrey (Verified) Notes: (Chest 2 Views Frontal and Lat) Reason For Exam: Chest Pain;Other: RESULT: Chest 2 Views Frontal and Lat Chest 2 Views Frontal and Lat Hx of Present Illness: kidney disorder, poor po intake. cough and fever. weakness. ? flu. tylenol helps her feel better. took nyquil at 5 pm; Reason: Other:; Chest Pain; Clinical Question(s): Other: / Other: COMPARISON: 04/14/2024 FINDINGS: LINES AND TUBES: Single lead left subclavian pacer/ICD wire is intact. LUNGS AND PLEURA: Clear lungs. Normal pulmonary vascularity. No pleural effusion. No pneumothorax. HEART, MEDIASTINUM AND KATYA: Heart is normal in size. Normal mediastinal and hilar contour. BONES AND SOFT TISSUES: No acute abnormality. IMPRESSION: No evidence of acute abnormality. WSN: [id number] Ordering Physician: Lesley Baron Dictated By: Fantasma Nuno MD Dictated Date/Time: 05/04/24 8:11 am Reviewed By: Fantasma Nuno MD Signed By: Fantasma Nuno MD Signed Date/Time: 05/04/24 8:11 am Transcribed By: ZAFAR Transcribed Date/Time: 05/04/24 8:10 am Vital Signs Most recent to oldest [Reference Range]: 1 2 3 Height 165 cm (05/06/24 8:21 AM) 165 cm (05/05/24 7:58 PM) 165 cm (05/05/24 8:50 AM) Weight 68.8 kg (05/04/24 9:42 AM) 68.8 kg (05/04/24 7:53 AM) 68.8 kg (05/04/24 1:16 AM) Oxygen Saturation [94-100 %] 100 % (05/06/24 8:21 AM) 96 % (05/05/24 7:58 PM) 93 % *L* (05/05/24 8:50 AM) Pulse Rate [55-90 bpm] 74 bpm (05/06/24 8:46 AM) 74 bpm (05/06/24 8:21 AM) 85 bpm (05/05/24 7:58 PM) Body Mass Index [18.5-24.99 kg/m2] 25.27 kg/m2 *H* (05/04/24 9:42 AM) 25.27 kg/m2 *H* (05/04/24 12:48 AM) Blood Pressure [90-138/55-84 mm Hg] 114/51mm Hg (05/06/24 8:46 AM) 114/51mm Hg (05/06/24 8:21 AM) 101/51mm Hg (05/05/24 7:58 PM) Respiratory Rate [16-30 br/min] 18 br/min (05/06/24 8:21 AM) 18 br/min (05/05/24 7:58 PM) 20 br/min (05/05/24 3:04 PM) Temperature [96.8-100.4 DegF] 97.5 DegF (05/06/24 8:21 AM) 98.0 DegF (05/05/24 7:58 PM) 98.1 DegF (05/05/24 8:50 AM) Liters per Minute 2 L/min (05/04/24 9:34 PM) Mode of Delivery (Oxygen) Room air (05/06/24 8:21 AM) Room air (05/05/24 7:58 PM) Room air (05/05/24 8:50 AM) Blood pressure sites Arm, right (05/06/24 8:21 AM) Arm, left (05/05/24 7:58 PM) Arm, left (05/05/24 8:50 AM) Temperature Route Oral (05/06/24 8:21 AM) Oral (05/05/24 7:58 PM) Oral (05/05/24 8:50 AM) Dry Weight 68.8 kg (05/04/24 9:42 AM) 68.8 kg (05/04/24 7:53 AM) 68.8 kg (05/04/24 1:16 AM) Weight Obtained Via Patient/family state d (05/04/24 12:48 AM) Dry Weight Obtained Via Patient/family s tated (05/04/24 12:48 AM) Social History Social History Type Response Smoking Status Former smoker; Tobac co user in household: No; Other: start age 40 quit 2013; entered on: 01/07/18 Sex Sex Representation Female (finding) Admission evaluation note * Magno MUÑOZ, Bud Perry: PERFORM, MODIFY Event Display: Admission Note Authored Date: Patient: ??MARGO TORRES ? Age:??83 Years?Sex:??Female?:??1940?? Chief Complaint/Reason for Consultation flu like symptoms - poor po intake. cough and fever. weakness.tylenol helps her feel better. took nyqiil at 5pm History of Present Illness This is an 83-year-old female from home, usually independent, lives alone and walks with a walker, with a past medical history of advanced chronic kidney disease stage IV, hyperparathyroidism, vitamin D deficiency, osteoporosis, CAD, GERD, ischemic cardiomyopathy status post AICD, comes into the hospital with complaints of weakness, fatigue, subjective fevers and chills and cough productive of clear yellow sputum for the past 1 week.?? As per daughter Inge at bedside, patient called EMS becauseshe had excessive coughing and could not stop.?? Daughter notes that patient has not been eating much for the past several days, but fluid intake has been normal.?? She had a temperature of 100.8 at presentation, she has been hemodynamically stable, recent blood pressure 110/55, saturating 99% on room air.?? On review of labs, white count is 6.2, hemoglobin/hematocrit is 8.4/26.4, stable since March 2024.?? Platelet count 204.?? Sodium is 136, potassium is 4.4, chloride/bicarb 103/19, BUN/creatinine 44/2.37.?? Creatinine is at baseline.?? She tested positive for influenza A. ED course???she has received 2 doses of Tylenol, 1 dose of Zofran and antitussive medications in addition to 1 L saline bolus. Chest x-ray???nonacute ?? Has been admitted for weakness, poor p.o. intake in the setting of influenza a positive status. Review of Systems GEN:??Positive for weakness, fatigue, poor p.o. intake HEENT: Denies runny nose, dry mouth, ??sore throat or changes to his vision. CV: Denies CP, palpitations, edema or orthopnea. PULM: Denies shortness of breath, positive for wheezing, cough, fevers chills. ABD: Denies any abdominal pain, N/V/D, heartburn. ??Denies any changes to bowel habits or stool character.?? : Denies dysuria, polyuria, or hematuria. EXT: Denies any joint pain, stiffness, numbness or tingling.?? PSYCH: Denies any depression or anxiety. Objective Vital Signs?? Temperature: 98.5 DegF (05/04/24 09:42:00) Temperature Route: Oral (05/04/24 09:42:00) Pulse Rate: 79 bpm (05/04/24 13:17:00) Respiratory Rate: 20 br/min (05/04/24 13:17:00) Systolic Blood Pressure: 110 mm Hg (05/04/24 13:17:00) Diastolic Blood Pressure: 55 mm Hg (05/04/24 13:17:00) Blood pressure sites: Arm, left (05/04/24 13:17:00) Mean Arterial Pressure: 79 mm Hg (05/04/24 09:42:00) Pulse Pressure: 53 mm Hg (05/04/24 09:42:00) Oxygen Saturation: 99 % (05/04/24 13:17:00) Mode of Delivery (Oxygen): Room air (05/04/24 13:17:00) ? Intake/Output? No Data Available ? Physical Exam General Appearance:??This is an elderly female, appears very weak and fatigued, noted to have intermittent raspy cough Eyes: EOMI. MARICARMEN. No scleral icterus. ENT: ??MM dry dentition intact. No erythema or exudates on throat.?? Cardiovascular: RRR S1 and S2 heard with no M/R/G. No JVD. Respiratory:??Respiratory expiratory wheezing heard bilaterally. ??No crackles rales or rhonchi GI: Soft. Nontender and nondistended. Normal bowel sounds present throughout abdomen. ??No rebound tenderness or other findings suggestive of an acute abdomen.?? MS: Trace edema in bilateral lower extremities, she is wearing compression socks on right lower extremity Skin:??No rashes seen on chest, abdomen, or back. ? Neuro: ??No slurred speech. 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 ??Lower extremity strength equal bilaterally with 5/5 strength.? Psych: Alert and oriented x3. Appropriate and pleasant. Lines: Peripheral IV in place.?? Assessment/Plan Diagnoses Anemia ??(D64.9) Cardiomyopathy, ischemic ??(I25.5) Chronic kidney disease (CKD) ??(N18.9) Influenza ??(J11.1) Shortness of breath ??(R06.02) Weakness ??(R53.1) ?? Assessment:??This is an 83-year-old female from home, usually independent, lives alone and walks with a walker, with a past medical history of advanced chronic kidney disease stage IV, hyperparathyroidism, vitamin D deficiency, osteoporosis, CAD, GERD, ischemic cardiomyopathy status post AICD, comes into the hospital with complaints of weakness, fatigue, subjective fevers and chills and cough productive of clear yellow sputum for the past 1 week. Has been admitted for weakness, poor p.o. intake in the setting of influenza a positive status. ?? Influenza (J11.1):??Patient tested positive for influenza, thankfully no pneumonia on chest x-ray.??Droplet precaution, Tamiflu ordered.??Scheduled and as needed DuoNebs since she is very wheezy, oral prednisone ordered for 5 days.??Saturating well on room air??otherwise.??Continue Flonase, Robitussin DM ?? Cardiomyopathy, ischemic (I25.5):??Patient has an ICD.??She takes atorvastatin and metoprolol, continue.??Temporarily holding spironolactone/torsemide as mentioned.??She appears euvolemic ?? Weakness (R53.1):??Generalized weakness, possibly in setting of influenza.??Will provide supportivecare,??will get a PT eval ?? Anemia (D64.9):??Chronic,??baseline hemoglobin seems to be between 8 and 9.??Anemia possibly from CKD, might benefit from outpatient Procrit.??No active bleeding ?? Chronic kidney disease (CKD) (N18.9):??Creatinine stable.??Avoid nephrotoxin NSAIDs and radiocontrast agents, daily renal function.??Given poor p.o. intake for the past few days, will temporarily hold??torsemide as well as spironolactone.??Holding??oral potassium supplement,??can replete as needed on a daily basis. Continue bicarb supplementation, continue calcium and vitamin D supplementation aswell as calcitriol ?? Hypertension???continue metoprolol, hold torsemide/spironolactone ?? VTE Prophylaxis:??Subcu heparin ?VTE Prophylaxis Assessment:??VTE Prophylaxis Ordered ?? Ongoing Medical Necessity:??Generalized weakness, wheezing ?? Code Status:??Full code ?Order Code Status:??Code Status Ordered ? Histories Allergies Allergies ?(Active and Proposed Allergies Only) Dilaudid? (Severity: Unknown severity, Onset: Unknown) ?Reactions: Hallucinations ?Comments: Hallucinations lisinopril? (Severity: Unknown severity, Onset: Unknown) ?Reactions: cough,chest tightness ? Past Medical History/Problem List Active Problems(25) Advanced directives, counseling/discussion Anemia Arthritis of right ankle CAD (coronary artery disease) Carpal tunnel syndrome, bilateral Chronic kidney disease, stage 4 (severe) Colonic polyp Degenerative cervical disc GERD (gastroesophageal reflux disease) Heart failure with reduced ejection fraction History of gout Hypercholesterolemia Hypertension Ischemic cardiomyopathy with implantable cardioverter-defibrillator (ICD) Kidney stone on left side Lumbar degenerative disc disease OA - Osteoarthritis of knee MARCI (obstructive sleep apnea) Osteoporosis PAF (paroxysmal atrial fibrillation) Renal mass, right Secondary hyperparathyroidism Type 2 diabetes mellitus with chronic kidney disease Urinary incontinence Uterovaginal prolapse ? Past Surgical History Colonoscopy with EMR and polypectomy: 05/12/19 Colonoscopy: 04/23/15 Appendectomy; Implantation of automatic cardioverter/defibrillator, total system (AICD) Colonoscopy Cardiac catheterization ? Social History Alcohol Details:??Use: Past. Employment/School Details:??Status: Retired. Exercise Details:??Self assessment: Fair condition. ??Regular exercise: Yes. ??Exercise frequency: 1-2 times/week. ??Exercise type: Walking. Home/Environment Details:??Living situation: [facility] W [facility]. Nutrition/Health Details:??Diet: Regular, Low sodium. ??Caffeine intake amount: 5 SODAS QD. Substance Abuse Details:??Use: Never. Tobacco Details:??Former smoker, Tobacco user in household: No. ??Other: start age 40 quit 2013. ? Family History Father: Cancer of lung ? Medications Home Medications Allopurinol (allopurinol 100 mg oral tablet)??0.5 tablet By Mouth Daily Atorvastatin (atorvastatin 80 mg oral tablet)??1 tab(s) By Mouth Daily at bedtime Calcitriol (calcitriol 0.25 mcg oral capsule)??1 capsule By Mouth Daily Calcium And Vitamin D Combination (Liquid Calcium with Vitamin D 1000 mg-10 mcg/30 mL oral liquid)??See Instructions TAKE 30MLS (2 TABLESPOONS) BY MOUTH ONCE DAILY Cyanocobalamin (Vitamin B12 1000 mcg oral tablet)??1 tab(s) 1,000 Microgram By Mouth Daily Durable Medical Equipment (Freestyle Lite Lancets)??See Instructions use to check glucose once daily for dx DM type 2 Durable Medical Equipment (Freestyle Lite Monitor)??See Instructions use as directed to check glucose daily for dx DM type 2 Durable Medical Equipment (Freestyle Lite Test Strips)??See Instructions use to check glucose once daily for dx DM type 2 Fluticasone Nasal (Flonase Allergy Relief 50 mcg/inh nasal spray)??2 spray(s) 100 Microgram Nares, Both Daily shake well before using Loratadine (loratadine 10 mg oral tablet)??10 Milligram 1 tablet By Mouth Daily as needed for 30 Days allergies Melatonin??2 TABLETS By Mouth Daily at bedtime Metoprolol (Metoprolol Succinate ER 100 mg oral tablet, extended release)??1 tab(s) By Mouth Daily mirabegron (Myrbetriq 50 mg oral tablet, extended release)??See Instructions TAKE 1 TABLET DAILY (NEED APPOINTMENT FOR FURTHER REFILLS) Miscellaneous Rx (Depends and pads)??See Instructions ADULT EXTRA LARGE, USE 6X QD, DX URINRY INCONTINENCE R39.81, SIM 99 VENU [phone] Miscellaneous Rx (INCONTINENCE PADS)??See Instructions ADULT EXTRA LARGE, USE 10X QD, DX URINRY INCONTINENCE R39.81, SIM 99 VENU [phone] Nitroglycerin (nitroglycerin 0.4 mg sublingual tablet)??1 tab(s) 0.4 Milligram Sublingual Every 5 minutes as needed as needed for chest pain not to exceed 3 doses/15 min--if pain persists, seek medical attention Pantoprazole (pantoprazole 40 mg oral delayed release tablet)??1 tab(s) By Mouth Daily Potassium Chloride (Klor-Con 10 10 mEq oral tablet, extended release)??1 tab(s) 10 Milliequivalent By Mouth Daily for 10 Days sodium bicarbonate (sodium bicarbonate 325 mg oral tablet)??1 tab(s) 325 Milligram By Mouth Daily Spironolactone (spironolactone 25 mg oral tablet)??12.5 Milligram 0.5 tablet By Mouth Daily torsemide (torsemide 20 mg oral tablet)??1 tab(s) 20 Milligram By Mouth Daily ? Results Recent Labs BLOOD COUNT & DIFF WBC 6.2 k/mm3 ()?? 05/04/2024 02:30 RBC 2.49 m/mm3 (Low)?? 05/04/2024 02:30 Hgb 8.4 Gm/dL (Low)?? 05/04/2024 02:30 Hct 26.4 % (Low)?? 05/04/2024 02:30 MCV 106.0 femtoliters (High)?? 05/04/2024 02:30 MCH 33.7 pg ()?? 05/04/2024 02:30 MCHC 31.8 Gm/dL (Low)?? 05/04/2024 02:30 Platelet Count 204 k/mm3 ()?? 05/04/2024 02:30 RDW-SD 51.7 femtoliters (High)?? 05/04/2024 02:30 MPV 10.0 femtoliters ()?? 05/04/2024 02:30 Nucleated RBC (Automated) 0.0 #/100 WBC'S ()?? 05/04/2024 02:30 Abs. NRBC 0.0 k/mm3 ()?? 05/04/2024 02:30 Abs. Neut 5.1 k/mm3 ()?? 05/04/2024 02:30 Abs. Lymph 0.3 k/mm3 (Low)?? 05/04/2024 02:30 Abs. [place] 0.6 k/mm3 ()?? 05/04/2024 02:30 Abs. Eo 0.1 k/mm3 ()?? 05/04/2024 02:30 Abs. Baso 0.0 k/mm3 ()?? 05/04/2024 02:30 Neut % 83.1 % (High)?? 05/04/2024 02:30 Lymph % 4.9 % (Low)?? 05/04/2024 02:30 [place] % 10.2 % ()?? 05/04/2024 02:30 Eos % 1.0 % ()?? 05/04/2024 02:30 Baso % 0.5 % ()?? 05/04/2024 02:30 Imm Gran 0.3 % ()?? 05/04/2024 02:30 Abs. Imm Gran 0.0 k/mm3 ()?? 05/04/2024 02:30 ?? CHEM GENERAL Sodium 136 mmol/L ()?? 05/04/2024 06:48 Potassium 4.4 mmol/L ()?? 05/04/2024 06:48 Chloride 103 mmol/L ()?? 05/04/2024 06:48 Bicarbonate Level 19 mmol/L (Low)?? 05/04/2024 06:48 Anion Gap 14 mmol/L ()?? 05/04/2024 06:48 Glucose Level 112 mg/dL (High)?? 05/04/2024 06:48 BUN 44 mg/dL (High)?? 05/04/2024 06:48 Creatinine-Blood 2.37 mg/dL (High)?? 05/04/2024 06:48 Estimated GFR Creatinine 20 ML/MIN/1.73 M2 ()?? 05/04/2024 06:48 Calcium 9.2 mg/dL ()?? 05/04/2024 06:48 ?? URINE OTHER Est Creatinine Clearance 16.16 mL/min ()?? 05/04/2024 07:48 ?? VIROLOGY Influenza A PCR POSITIVE (Abnormal)?? 05/04/2024 01:14 Influenza B PCR NEGATIVE ()?? 05/04/2024 01:14 RSV PCR NEGATIVE ()?? 05/04/2024 01:14 COVID-19 PCR Specimen Source NASAL ()?? 05/04/2024 01:14 COVID-19 PCR Result NEGATIVE ()?? 05/04/2024 01:14 ? Urinalysis Est Creatinine Clearance: 16.16 mL/min (07:48) ? EKG study * Event Display: ECG 12-Lead Authored Date: Please click on pdf link to open report * Event Display: ECG 12-Lead Authored Date: Ventricular Rate: 90 BPM Atrial Rate: 90 BPM P-R Interval: 194 ms QRS Duration: 138 ms Q-T Interval: 380 ms QTC Calculation(Bazett): 464 ms P Pioche: 6 degrees R Pioche: -28 degrees T Pioche: 17 degrees Normal sinus rhythm Right bundle branch block Minimal voltage criteria for LVH, may be normal variant ( R in aVL ) Anterolateral infarct , age undetermined Abnormal ECG When compared with ECG of 04-May-2024 01:25, Premature atrial complexes are no longer Present Confirmed by YEIMI CAN MD ([id number]) on 05/04/2024 3:54:20 PM Bivins: YEIMI CAN MD * Event Display: ECG 12-Lead Authored Date: Please click on pdf link to open report * Event Display: ECG 12-Lead Authored Date: Ventricular Rate: 94 BPM Atrial Rate: 94 BPM P-R Interval: 204 ms QRS Duration: 136 ms Q-T Interval: 374 ms QTC Calculation(Bazett): 467 ms P Pioche: 18 degrees R Pioche: -18 degrees T Pioche: 28 degrees Sinus rhythm with Premature atrial complexes Right bundle branch block Minimal voltage criteria for LVH, may be normal variant ( R in aVL ) Anterolateral infarct (cited on or before 02-May-2013) Abnormal ECG When compared with ECG of 14-Apr-2023 19:22, Premature atrial complexes are now Present Vent. rate has increased by 31 bpm Serial changes of Anterior infarct Present Confirmed by MARANDA JUAREZ ([id number]) on 05/04/2024 9:24:56 AM Bivins: MARANDA JUAREZ [facility] Progress note * Emmanuelle Olivares RN: PERFORM, SIGN, VERIFY Event Display: Progress Note Hospital Authored Date: [id number] Patient: MARGO TORRES Age: 83 years Sex: Female : 1940 Associated Diagnoses: None Author: Emmanuelle Olivares RN Findings Narrative/Incidental Pt D/C home today with services. Went home with daughter, D/C education provided to both pt and daughter at bedside, both verbalized understaanding and denies questions. IV discontinued. Droplet precautions maintained. . Discharge Information Case Management Discharge Plan : Case Management Discharge Plan Data 05/06/2024 11:26 EST Discharge Level of Care at Discharge Homehealth/VNA Discharge V[facility]/Hospice/Home Care [facility] [phone] 05/06/2024 11:03 EST Discharge Level of Care at Discharge In Error (In Error) Discharge VNA/Hospice/Home Care In Error (In Error) Name of Agency #1 In Error (In Error) Service Categories #1 In Error (In Error) Service Comments #1 In Error (In Error) 05/05/2024 16:32 EST Discharge Level of Care at Discharge Homehealth/VNA Discharge V[facility]/Hospice/Home Care [facility] [phone] Name of Agency #1 [facility] Categories #1 Physical Therapy, [facility] Service Comments #1 Patient discharging home with [facility] for PT and half-way. The agency will be in contact wiht you in 1-2 days. If you do not hear from them please contact the agency directly. Rehabilitation Discharge : Rehab Discharge Index 05/05/2024 8:35 EST Comments on treatment indicated 83 y/o F admitted for weakness, fatigue, subjective fevers and chills and cough productive of clear yellow sputum for the past 1 week found to have FLU A. WBAT, fall risk. PT f/u for ther ex, bed mob, transfers, gait, and balance. Rec home c services Walker: distance 10-20 Distance pt will ambulate 40ft Full chart review completed Yes Hospital course Hospital course Other findings Pt is a mod complexity eval d/t current medical status and PMH Plan of care PT Gait training, Transfer training, Therapeutic exercise, Functional Activities, Balance training, Neuromuscular education * Inge Mei RN: PERFORM, SIGN, VERIFY Event Display: Progress Note Hospital Authored Date: [id number] Patient: MARGO TORRES Age: 83 years Sex: Female : 1940 Associated Diagnoses: None Author: Inge Mei RN Findings Evaluation pt is alert and oriented x 4 daughter updated on conditon and in to visit, vss pt follows up with wound center at [facility] for her old surgery on ankle area has ammon on , tano for dc over the weekendand daughter setates that pt has a follow up wit wound in 1 week, toleratingm eds and breathing treatments, +2 pedal edema, elevated, nosigns of bleeding, willl cont to monitor. . Discharge Information Case Management Discharge Plan : Case Management Discharge Plan Data 05/05/2024 16:32 EST Discharge Level of Care at Discharge Homehealth/VNA Discharge VNA/Hospice/Home Care [facility] [phone] Name of Agency #1 [facility] Categories #1 Physical Therapy, [facility] Service Comments #1 Patient discharging home with [facility] for PT and half-way. The agency will be in contact wiht you in 1-2 days. If you do not hear from them please contact the agency directly. Rehabilitation Discharge : Rehab Discharge Index 05/05/2024 8:35 EST Comments on treatment indicated 83 y/o F admitted for weakness, fatigue, subjective fevers and chills and cough productive of clear yellow sputum for the past 1 week found to haveFLU A. WBAT, fall risk. PT f/u for ther ex, bed mob, transfers, gait, and balance. Rec home c services Walker: distance 10-20 Distance pt will ambulate 40ft Full chart review completed Yes Hospital course Hospital course Other findings Pt is a mod complexity eval d/t current medical status and PMH Plan of care PT Gait training, Transfer training, Therapeutic exercise, Functional Activities, Balance training, Neuromuscular education * Kenna Guardado DO: PERFORM Event Display: Progress Note Hospital Authored Date: Patient: ??MARGO TORRES ? Age:??83 Years?Sex:??Female?:??1940?? Subjective Patient seen and examined on morning rounds.?? No acute events overnight.?? Patient states she is feeling much improved today after receiving her breathing treatments in addition to the Tamiflu. ??She states her main complaint at this time is a cough which has??gotten better, stating it is no longer??productive and is now dry. ??She denies any chest pain, shortness of breath, fever, chills, abdominal pain, nausea, vomiting, diarrhea.?? She states she is getting her appetite back and??has been able to walk from the bed to her bathroom. ?? Day events: As patient was doing??well clinically, informed her that she would be safe for discharge today.?? Patient's daughter stated she would like the patient to stay in the hospital 1 additionalnight??for further care with likely discharge tomorrow. Review of Systems As above, otherwise negative Past Medical History Active Problems(25) Advanced directives, counseling/discussion Anemia Arthritis of right ankle CAD (coronary artery disease) Carpal tunnel syndrome, bilateral Chronic kidney disease, stage 4 (severe) Colonic polyp Degenerative cervical disc GERD (gastroesophageal reflux disease) Heart failure with reduced ejection fraction History of gout Hypercholesterolemia Hypertension Ischemic cardiomyopathy with implantable cardioverter-defibrillator (ICD) Kidney stone on left side Lumbar degenerative disc disease OA - Osteoarthritis of knee MARCI (obstructive sleep apnea) Osteoporosis PAF (paroxysmal atrial fibrillation) Renal mass, right Secondary hyperparathyroidism Type 2 diabetes mellitus with chronic kidney disease Urinary incontinence Uterovaginal prolapse ? Past Surgical History Colonoscopy with EMR and polypectomy: 05/12/19 Colonoscopy: 04/23/15 Appendectomy; Implantation of automatic cardioverter/defibrillator, total system (AICD) Colonoscopy Cardiac catheterization ? Objective Vital Signs?? Temperature: 98.1 DegF (05/05/24 08:50:00) Temperature Route: Oral (05/05/24 08:50:00) Pulse Rate: 73 bpm (05/05/24 10:12:00) Respiratory Rate: 20 br/min (05/05/24 15:04:00) Systolic Blood Pressure: 106 mm Hg (05/05/24 10:12:00) Diastolic Blood Pressure:??50 mm Hg??Low (05/05/24 10:12:00) Blood pressure sites: Arm, left (05/05/24 08:50:00) Mean Arterial Pressure: 69 mm Hg (05/05/24 08:50:00) Pulse Pressure: 56 mm Hg (05/05/24 08:50:00) Oxygen Saturation:??93 %??Low (05/05/24 08:50:00) Liters per Minute: 2 L/min (05/04/24 21:34:00) Mode of Delivery (Oxygen): Room air (05/05/24 08:50:00) Early Warning Score: 6 (05/05/24 17:01:59) ? Ventilator Settings?? No qualifying data available. ?? Intake/Output? 05/04 14:28 05/05 07:00 05/04 07:00 05/03 07:00 05/02 07:00 ?? 05/05 17:04 05/05 17:04 05/05 06:59 05/04 06:59 05/03 06:59 Intake ?118 ?118 ?0 ?0 ?0 Output ?0 ?0 ?0 ?0 ?0 Net Total ?118 ?118 ?0 ?0 ?0 ? Urine Count ?2 ?1 ?1 ?0 ?0 ? Physical Exam General Appearance:??This is an elderly female, sitting up in chair, on room air, no acute distress?? Eyes: EOMI. MARICARMEN. No scleral icterus. ENT: ??MM dry dentition intact. No erythema or exudates on throat.?? Cardiovascular: RRR S1 and S2 heard with no M/R/G. No JVD. Respiratory: cleared to auscultation bilaterally. No crackles rales or rhonchi. No wheezing GI: Soft. Nontender and nondistended. Normal bowel sounds present throughout abdomen. ??No rebound tenderness or other findings suggestive of an acute abdomen.?? MS: Trace edema in bilateral lower extremities, she is wearing compression socks on right lower extremity Skin:??No rashes seen on chest, abdomen, or back. ? Neuro: ??No slurred speech. 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 ??Lower extremity strength equal bilaterally with 5/5 strength.? Psych: Alert and oriented x3. Appropriate and pleasant. _ Inpatient Medications Medications (24) Active SCHEDULED: (13) Albuterol/Ipratropium Inhalation Gissell 3mL (Duoneb Inhalation Solution) ??1 vials, BAND Nebulizer, 4 times a day Allopurinol 100 mg Tablet (allopurinol 100 mg oral tablet) ??50 mg, By Mouth, Daily Atorvastatin 80 mg Tablet (atorvastatin 80 mg oral tablet) ??80 mg, By Mouth, Daily at bedtime Calcitriol 0.25 mcg Capsule (calcitriol 0.25 mcg oral capsule) ??0.25 mcg, By Mouth, Daily Calcium Citrate 315mg / Vit D 250IU (Calcium Citrate 315 mg + Vitamin D 250IU Tablet) ??315 mg 1 tablet, By Mouth, 2 times a day Fluticasone Propionate 50mcg/inh Nasal Spurger (fluticasone 50 mcg/inh nasal spray) ??50 mcg 1 sprays, Nares, Both, 2 times a day Heparin 5000 units/mL Inj (1 mL) (Heparin Inj) ??5,000 units 1 mL, Subcutaneous Injection, 3 times a day Metoprolol 100 mg XL Tablet (Metoprolol Succinate ER 100 mg oral tablet, extended release) ??100 mg, By Mouth, Daily NaCl 0.9% Flush 3ml (NaCL 0.9% Flush) ??3 mL, IV Push, Every 8 hours Oseltamivir 75 mg Capsule (Tamiflu Capsule) ??75 mg, By Mouth, Daily Pantoprazole 40 mg EC Tablet (pantoprazole 40 mg oral delayed release tablet) ??40 mg, By Mouth, Daily Sodium Bicarbonate 650 mg Tablet (sodium bicarbonate 650 mg oral tablet) ??325 mg, By Mouth, Daily Vitamin B-12 ??1000 mcg Tablet (Vitamin B12 1000 mcg oral tablet) ??1,000 mcg, By Mouth, Daily CONTINUOUS: (0) PRN: (11) Acetaminophen 325 mg Tablet (Acetaminophen Tablet) ??650 mg, By Mouth, Every 4 hours Albuterol/Ipratropium Inhalation Gissell 3mL (Duoneb Inhalation Solution) ??1 vials, BAND Nebulizer, Every 4 hours Dextromethorphan-Guaifenesin 20 mg-200 mg/10 mL Liqu UD (Robitussin DM Liquid) ??10 mL, By Mouth, Every 4 hours Docusate Sodium 100 mg Capsule (Docusate Sodium Capsule) ??100 mg 1 capsule, By Mouth, 2 times a day Loratadine 10 mg Tablet (loratadine 10 mg oral tablet) ??10 mg, By Mouth, Daily Melatonin 3 mg Tablet (Melatonin Tablet) ??3 mg, By Mouth, Daily at bedtime NaCl 0.9% Flush 3ml (NaCL 0.9% Flush) ??3 mL, IV Push, Every 8 hours Nitroglycerin 0.4 mg Sublingual Tablet (nitroglycerin 0.4 mg sublingual tablet) ??0.4 mg, Sublingual, Every 5 minutes Polyethylene Glycol 17 Gm Powder (MiraLax Powder) ??17 Gm 1 pack/packet, By Mouth, Daily Senna Tablet ??8.6 mg 1 tablet, By Mouth, 2 times a day Simethicone 80 mg Chewable Tablet (Simethicone Tablet) ??80 mg, Chew, 3 times a day ? Results Abnormal Labs ?? BLOOD COUNT & DIFF Abs. NRBC?0.0 k/mm3 ()?05/05/2024 08:24 Hct?24.4 % (Low)?05/05/2024 08:24 Hgb?7.7 Gm/dL (Low)?05/05/2024 08:24 MCH?34.8 pg (High)?05/05/2024 08:24 MCHC?31.6 Gm/dL (Low)?05/05/2024 08:24 MCV?110.4 femtoliters (High)?05/05/2024 08:24 Nucleated RBC (Automated)?0.0 #/100 WBC'S ()?05/05/2024 08:24 RBC?2.21 m/mm3 (Low)?05/05/2024 08:24 RDW-SD?53.6 femtoliters (High)?05/05/2024 08:24 WBC?2.6 k/mm3 (Low)?05/05/2024 08:24 ?? CHEM GENERAL BUN?46 mg/dL (High)?05/05/2024 08:24 Bicarbonate Level?20 mmol/L (Low)?05/05/2024 08:24 Creatinine-Blood?2.29 mg/dL (High)?05/05/2024 08:24 Estimated GFR Creatinine?21 ML/MIN/1.73 M2 ()?05/05/2024 08:24 Glucose Level?113 mg/dL (High)?05/05/2024 08:24 ?? Note: Critical results are displayed in red. ? Assessment/Plan Assessment:??83 year-old female from home, usually independent, lives alone and walks with a walker, with a past medical history of advanced chronic kidney disease stage IV, hyperparathyroidism, vitamin D deficiency, osteoporosis, CAD, GERD, ischemic cardiomyopathy status post AICD, comes into the hospital with complaints of weakness, fatigue, subjective fevers and chills and cough productive of clear yellow sputum for the past 1 week. Has been admitted for weakness, poor p.o. intake in the setting of influenza a positive status.?Patient will likely be discharged home tomorrow. ?? Influenza (J11.1):??Patient tested positive for influenza, thankfully no pneumonia on chest x-ray. Patient with improved physical exam today and improvement in symptoms as well.?? Was safe for discharge but daughter??wanted to keep patient in the hospital 1 additional night for further care, will plan to discharge patient tomorrow She remains on room air??with no work of breathing, main complaint now is a dry cough ?? Plan:?? -??Continue Flonase, Robitussin DM - scheduled and prn DuoNeb?? - discontinue Prednisone as pt no longer wheezing?? - Tamiflu x 5 days?? - Droplet precautions? Cardiomyopathy, ischemic (I25.5):??Patient has an ICD.? Plan:?? - Continue home atorvastatin and metoprolol, continue.?? -??Temporarily holding spironolactone/torsemide.??She appears euvolemic ?? Weakness (R53.1):??Generalized weakness, possibly in setting of influenza.? Plan:?? -??Will provide supportive care,??will get a PT eval ?? Anemia (D64.9):??Chronic,??baseline hemoglobin seems to be between 8 and 9.??Anemia possibly from CKD, might benefit from outpatient Procrit.??No active bleeding ?? Chronic kidney disease (CKD) (N18.9):??Creatinine stable.? Plan:?? -??Avoid nephrotoxin NSAIDs and radiocontrast agents, daily renal function. -??Given poor p.o. intake for the past few days, will temporarily hold??torsemide as well as spironolactone.?? -??Holding??oral potassium supplement,??can replete as needed on a daily basis. - Continue bicarb supplementation, continue calcium and vitamin D supplementation as well as calcitriol ?? Hypertension ?? Plan:?? -??continue metoprolol, hold torsemide/spironolactone ?? VTE Prophylaxis:??Subcu heparin ?VTE Prophylaxis Assessment:??VTE Prophylaxis Ordered ?? Ongoing Medical Necessity: Discharge to home tomorrow 05/06 ?? Code Status:??Full code ?? Discussed with attending, Dr. Rossi? Neilesh Debby DO Anesthesiology PGY-1 ? * Virginia Rossi DO: PERFORM Event Display: Progress Note Hospital Authored Date: [id number] Attending Attestation:??I have seen and evaluated this patient. ??I have discussed the case and itsmanagement with the resident and agree with the findings and plan as documented in the resident???snote. ?? Note * Emmanuelle Olivares RN: PERFORM Event Display: Discharge/Transfer Note Hospital Authored Date: [id number] Nursing Discharge Note Entered On: 05/06/2024 11:27 EST Performed On: 05/06/2024 11:26 EST by Emmanuelle Olivares RN Nursing Discharge Note 2 Discharge Time : 05/06/2024 11:15 EST Discharge Level of Care at Discharge : Homehealth/VNA Discharge VNA/Hospice/Home Care(v001) : Omi Delgado [phone] Patient Left Unit Via : Wheelchair Patient Accompanied Off Unit with : Responsible adult DC Instructions Provided & Signed by Pt : Yes Patient Understands D/C Instructions : Yes Patient Instructions Discharge Signed : Yes Did Pt have Specialty Bed or Wound Vac : Valerie Olivares RN, Emmanuelle - 05/06/2024 11:26 EST * Kenna Guardado DO: PERFORM, MODIFY Event Display: Discharge/Transfer Note Hospital Authored Date: [id number] Patient: ??MARGO TORRES ? Age:??83 Years?Sex:??Female?:??1940?? Patient Information Discharge Location: A Primary Care Physician: Mannie MUÑOZ, Vee Admit Date/Time: 05/04/2024 14:28 Discharge Disposition Discharge Disposition: Home with Home Health Discharge Diagnosis General medical ([id number]) Influenza (J11.1) Shortness of breath (R06.02) Chronic kidney disease (CKD) (N18.9) Anemia (D64.9) Cardiomyopathy, ischemic (I25.5) Weakness (R53.1) Medications Started Tamiflu 75 mg to complete a 5 day course Albuterol inhaler prn Robitussin DM prn Medications Discontinued none Doses Changed none PCP Follow-Up/Heads-Up Margo was admitted to [facility]??for??weakness secondary to testing positive for the flu.?? Chestx-ray ruled out pneumonia.?? She is being discharged home??to complete a 5-day course of Tamiflu and given an albuterol as needed for wheezing. ?? Please follow-up on symptoms??resolution. Future Appointments Wednesday 4:00 PM EDT ?? Where: [facility] Radiology [facility] [address], [address] [place] [address]- Status: Pending Wednesday 7:40 AM EDT ?? Where: [facility] [address] [place] [address]- Status: Pending Hospital Course 83 year-old female from home, usually independent, lives alone and walks with a walker, with a pastmedical history of advanced chronic kidney disease stage IV, hyperparathyroidism, vitamin D deficiency, osteoporosis, CAD, GERD, ischemic cardiomyopathy status post AICD, comes into the hospital withcomplaints of weakness, fatigue, subjective fevers and chills and cough productive of clear yellow sputum for the past 1 week. Chest x-ray with no concerns for pneumonia but patient did test positivefor Influenza A. Was admitted for weakness, poor p.o. intake in the setting of influenza a positivestatus. Initially was requiring brief moments of supplemental O2 NC but remained on room air for most of admission. Treated with tamiflu, duonebs, and initially prednisone which was discontinued as wheezing resolved. Patient has remained hemodynamically stable and progressing well on room air, and so will be discharged home with albuterol inhaler prn, cough syrup, and tamiflu to complete a 5 day course. ?? Influenza (J11.1):??Patient tested positive for influenza, thankfully no pneumonia on chest x-ray. Patient with improved physical exam today and improvement in symptoms as well She remains on room air??with no work of breathing, main complaint now is a dry cough ?? Reccs: -??Continue Robitussin DM for cough as needed - Albuterol inhaler for wheezing as needed?? - Tamiflu x 5 days??(2 doses left) - Supportive care, encourage PO hydration, rest - Home with health services (VNA and PT) Objective Temperature?97.5 ?(08:24) Systolic Blood Pressure?114 ?(08:49) Diastolic Blood Pressure?51 ?(08:49) Pulse?74 ?(08:49) SpO2?100 ?(08:24) Respiratory Rate?18 ?(08:23) . Physical Exam General Appearance:??This is an elderly female, sitting up in chair, on room air, no acute distress?? Eyes: EOMI. MARICARMEN. No scleral icterus. ENT: ??MM dry dentition intact. No erythema or exudates on throat.?? Cardiovascular: RRR S1 and S2 heard with no M/R/G. No JVD. Respiratory: cleared to auscultation bilaterally. No crackles rales or rhonchi. No wheezing GI: Soft. Nontender and nondistended. Normal bowel sounds present throughout abdomen. ??No rebound tenderness or other findings suggestive of an acute abdomen.?? MS: Trace edema in bilateral lower extremities, she is wearing compression socks on right lower extremity Skin:??No rashes seen on chest, abdomen, or back. ? Neuro: ??No slurred speech. 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 ??Lower extremity strength equal bilaterally with 5/5 strength.? Psych: Alert and oriented x3. Appropriate and pleasant. Consultants none Patient Education Titles [employer] Patient Education - The Flu (Influenza)?? [employer] Patient Education - Oseltamivir?? Follow-Up Appointments Added Follow Up ?Time Frame ?Comments Mannie MUÑOZ, [place] Patient Instructions You were seen at [facility] for a complaint of fever, chills, cough, and shortness of breath.?? You had a chest x-ray done which was negative for any pneumonia,??but you??did end up testing positive for the flu.?? You were admitted to the hospital for further care.?? You were treated with??breathing treatments in addition to??Tamiflu??and you??progressed clinically??throughout her stay.?? It is now safe for you to return home.?? You will be discharged on??an albuterol inhaler to use as needed for any??wheezing.?You will also be given Tamiflu,??which you have been receiving in the hospital, to complete a 5- day course to treat??the flu.?? You only have 2 doses left which you should t tyson??on 05/07??and??on 05/08.?? You will be also??given cough syrup to help with your??cough which has been improving.?? To help with your cough, we discussed??making hot tea with??luke, lemon, and honey to help soothe your throat and??treat your cough. Please take all of your other medications as you were before with no changes.? Return precautions:??Please return to the hospital if you develop a fever greater than 100.4??that does not??resolve with Tylenol,??experience severe chest pain,??have worsening shortness of breath,??or have any further concerning symptoms at all. Home Health Face to Face *Denotes mandatory ragland ?? *I certify that this patient is under my care and that I or an allowed non- physician working with me had a face to face encounter with the patient on this date:??05/06/2024 09:13 ?? *The encounter with the patient was in whole, or in part, for the following medical condition, which is the primary diagnosis(es) for home health care:??General medical ([id number]) Influenza (J11.1) Shortness of breath (R06.02) Chronic kidney disease (CKD) (N18.9) Anemia (D64.9) Cardiomyopathy, ischemic (I25.5) Weakness (R53.1) ?? *Select the indications for the discipline/s that are being arranged for this patient. Nursing (select all that apply): [_] None [X] Medication management (reconciliation, teaching)?? [_] Chronic disease management?? [_] Wound care and treatment?? [X] Home safety evaluation [_] Administer SQ/IM/IV medications?? [_] Cath care?? [_] Drain care?? [_] Trach or GT care?? Other _ Occupation Therapy (select all that apply): [_] None [_] ADL Management [_] Fall prevention training [_] Energy conservation [_] Cognitive training Other _ Physical Therapy (select all that apply): [_] None [X] Functional mobility training [_] Home exercise program to strengthen [_] Increase ROM?? [_] Falls prevention training [_] Home maintenance program for chronic disease Other _ Speech Therapy (select all that apply): [_] None [_] Swallow evaluation and training [_] Speech and language training [_] Cognitive training to process, organize, and/or recall information Other _ ? *Homebound due to (select all that apply): [_] Inability to leave home without assistance/supervision [_] Inability to ambulate without assistance [_] Pain [X] Decreased strength and endurance [_] Unsteady gait [_] Severe SOB and fatigue [_] Impaired transfers [_] Inability to negotiate stairs [_] Limited weight bearing [_] Mental status change? *Physician Signature:??Kenna Guardado DO ?? *By signing this, I certify that I have personally evaluated the patient and agree with the findings and recommendations as documented above. ? Results Recent Labs:BLOOD COUNT & DIFF WBC 3.3 k/mm3 (Low)?? 05/06/2024 05:38 RBC 2.22 m/mm3 (Low)?? 05/06/2024 05:38 Hgb 7.6 Gm/dL (Low)?? 05/06/2024 05:38 Hct 23.9 % (Low)?? 05/06/2024 05:38 MCV 107.7 femtoliters (High)?? 05/06/2024 05:38 MCH 34.2 pg (High)?? 05/06/2024 05:38 MCHC 31.8 Gm/dL (Low)?? 05/06/2024 05:38 Platelet Count 188 k/mm3 ()?? 05/06/2024 05:38 RDW-SD 52.6 femtoliters (High)?? 05/06/2024 05:38 MPV 10.0 femtoliters ()?? 05/06/2024 05:38 Nucleated RBC (Automated) 0.0 #/100 WBC'S ()?? 05/06/2024 05:38 Abs. NRBC 0.0 k/mm3 ()?? 05/06/2024 05:38 ?? CHEM GENERAL Sodium 135 mmol/L ()?? 05/06/2024 05:41 Potassium 4.6 mmol/L ()?? 05/06/2024 05:41 Chloride 104 mmol/L ()?? 05/06/2024 05:41 Bicarbonate Level 21 mmol/L (Low)?? 05/06/2024 05:41 Anion Gap 10 mmol/L ()?? 05/06/2024 05:41 Glucose Level 119 mg/dL (High)?? 05/06/2024 05:41 BUN 48 mg/dL (High)?? 05/06/2024 05:41 Creatinine-Blood 2.21 mg/dL (High)?? 05/06/2024 05:41 Estimated GFR Creatinine 22 ML/MIN/1.73 M2 ()?? 05/06/2024 05:41 Calcium 9.1 mg/dL ()?? 05/06/2024 05:41 ?? URINE OTHER Est Creatinine Clearance 17.33 mL/min ()?? 05/06/2024 06:45 ?? Discussed with attending, Dr. Bauman ?? [facility] DO Anesthesiology PGY-1 * Mitul MUÑOZ, [place]: PERFORM Event Display: Discharge/Transfer Note Hospital Authored Date: Attending Attestation: I have seen and evaluated this patient. I have discussed the case and its management with the resident and agree with the findings and plan as documented in the resident???s note. time spent_35 minutes * Emmanuelle Olivares RN: PERFORM Event Display: Patient Education/Instruction Authored Date: [id number] Inpatient Adult Discharge Instructions. [address] [address] Name: MARGO TORRES : 1940?? Visit: 05/04/2024 14:28?? Current Date: 05/06/2024 10:44 ?? Account: [id number]?? Inpatient Adult Discharge Instructions We would like to thank you for allowing us to assist you with your healthcare needs. The following includes patient education materials and information regarding your injury/illness. Our entire staffstrives to provide an excellent experience for our patients and their families. PLEASE ENSURE YOU FOLLOW-UP PER THE INSTRUCTIONS BELOW! ?? YOUR OPINION IS IMPORTANT TO US! Please complete the survey you may receive by mail or email. Your feedback will be used to make improvements to the healthcare experiences of our patients and their families. Surveys are administered by [employer] ?? If further treatment with your primary care physician or another doctor is recommended, it is important for you to keep the appointment. Call your primary care physician or return to the Emergency Department immediately if your condition worsens, fails to improve, or new symptoms develop. If you need to find a doctor, you can call [facility] Link for a referral at [phone] or toll free at [phone]) or log in to [email or web address]. ?? [facility], in keeping with [facility] guidance, no longer requires face masks for [...] medical provider or home test kit. ?? You can view and manage your care through the patient portal or by using a health care theresa of your choosing. [employer] is a website that allows you to securely view your medical information including your hospital discharge summary, office visit summaries, medications and follow-up visits. You can also request appointments, renew medications, and request access to your medical information using a health care theresa of your choosing, or just ask a question. You can enroll at [email or web address] or register during your next office visit. You have been discharged from [facility], Patient Care Unit: D6A??. If you have any questions regarding these instructions, including results of studies pending, afteryou leave, please call us and we will be happy to assist you 12/10. [facility] Your Care Team Attending Physician Virginia Rossi DO?? Consulting Providers Virginia Rossi DO?? Discharging Providers Kenna Guardado DO Reason for Your Visit flu like symptoms - poor po intake. cough and fever. weakness.tylenol helps her feel better. took nyqiil at 5pm?? Your Diagnosis Anemia Cardiomyopathy, ischemic Chronic kidney disease (CKD) General medical Weakness Tests Performed Below is a partial list of the tests performed during your hospitalization. You may have had other tests and procedures not included in this list. Please discuss all test results with your provider. Basic Metabolic Panel BUN Calcium Level CBC CBC w/ Differential COVID-19, RSV, and Flu A/B, Rapid PCR Creatinine Electrolytes Glucose Level XR Chest 2 Views Frontal and Lat BUN?? Basic Metabolic Panel?? CBC?? CBC w/ Differential?? COVID-19, RSV, and Flu A/B, Rapid PCR?? Calcium Level?? Creatinine?? Electrolytes?? Glucose Level?? Chest 2 Views Frontal and Lat (XR Chest 2 Views Frontal and Lat)?? Primary Care Provider Vee Chand MD? Advance Directive Health Care Proxy on File Yes - Health Care Proxy Yes - MOLST Discharge Vitals Temperature: 97.5 DegF Height: 165 cm Pulse Rate: 74 bpm Weight: 68.8 kg Respiratory Rate: 18 br/min Body Mass Index:??25.27 kg/m2??High Systolic Blood Pressure: 114 mm Hg Body surface area: 1.78 Diastolic Blood Pressure:??51 mm Hg??Low ?? Oxygen Saturation: 100 % ?? Studies Pending All studies ordered during this hospital stay have been completed unless listed below. Please discuss all pending results with your provider listed above in these instructions. ?? No incomplete studies found?? What to do next Instructions From Your Doctor You were seen at [facility] for a complaint of fever, chills, cough, and shortness of breath.?? You had a chest x-ray done which was negative for any pneumonia,??but you??did end up testing positive for the flu.?? You were admitted to the hospital for further care.?? You were treated with??breathing treatments in addition to??Tamiflu??and you??progressed clinically??throughout her stay.?? It is now safe for you to return home.?? You will be discharged on??an albuterol inhaler to use as needed for any??wheezing.?You will also be given Tamiflu,??which you have been receiving in the hospital, to complete a 5- day course to treat??the flu.?? You only have 2 doses left which you should t tyson??on 05/07??and??on 05/08.?? You will be also??given cough syrup to help with your??cough which has been improving.?? To help with your cough, we discussed??making hot tea with??luke, lemon, and honey to help soothe your throat and??treat your cough. Please take all of your other medications as you were before with no changes.? Return precautions:??Please return to the hospital if you develop a fever greater than 100.4??that does not??resolve with Tylenol,??experience severe chest pain,??have worsening shortness of breath,??or have any further concerning symptoms at all. ?? Orders?? , ??05/06/24 9:53:00 EST?? Prescriptions??, ??05/06/24 9:53:00 EST?? Scheduled Follow-Up Appointments Wednesday 4:00 PM EDT ?? Where: [facility] Radiology [facility] [address], [address] [place] [address]- Status: Pending Wednesday 7:40 AM EDT ?? Where: [facility] [address] [place] [address]- Status: Pending You Need to Schedule the Following Appointments Follow Up with??Mannie MUÑOZ, Vee Where: ?? Discharge Medications MARGO TORRES :1940 Visit Date:05/04/2024 Medications: Please continue your medications until treatment is completed or stopped by your provider. Medications not listed below should be discontinued. Discuss any questions related to medications with your provider. What How Much When Why Instructions Next Dose New Albuterol (Albuterol (Eqv- ProAir HFA) 90 mcg/ inhinhalation aerosol) 1 inhalation Inhalation Every 4 hours as needed for as needed for shortness of breath or wheezing Pickup at [facility] as needed 05/06 3 pm New Guaifenesin/ Dextromethorphan (dextromethorphan-guaifenesin 10 mg-100 mg/ 5 mL oral liquid) 10 Milliliter Oral Every 4 hours as needed for Cough Pickup at [facility] 3 as needed 05/06 3pm New Oseltamivir (oseltamivir 75 mg oral capsule) 75 Milligram Oral Daily Pickup at [facility] 3 05/07 9 am Unchanged Allopurinol (allopurinol 100 mg oral tablet) 0.5 tab(s) Oral Daily 05/07 9 am Unchanged Atorvastatin (atorvastatin 80 mg oral tablet) 1 tab(s) Oral Daily at Bedtime 05/06 9 pm Unchanged Calcitriol (calcitriol 0.25 mcg oral capsule) 1 capsule Oral Daily 05/07 am Unchanged Calcium And Vitamin D Combination (Liquid Calcium with Vitamin D 1000 mg-10 mcg/ 30 mL oral liquid) See instructions TAKE 30MLS (2 TABLESPOONS) BY MOUTH ONCE DAILY ?? 05/07 am Unchanged Cyanocobalamin (Vitamin B12 1000 mcg oral tablet) 1 tab(s) Oral Daily 05/07 am Unchanged Durable Medical Equipment (Freestyle Lite Lancets) [...] for dx DM type 2 ?? Unchanged Fluticasone Nasal (Flonase Allergy Relief 50 mcg/ inh nasal spray) 2 spray(s) Nares, Both Daily shake well before using ?? 05/07 am Unchanged Loratadine (loratadine 10 mg oral tablet) 1 tab(s) Oral Daily as needed for allergies Duration: 30 Days as needed 05/07 am Unchanged Melatonin 2 TABLETS Oral Daily at Bedtime 9 pm Unchanged Metoprolol (Metoprolol Succinate ER 100 mg oral tablet, extended release) 1 tab(s) Oral Daily 05/07 am Unchanged mirabegron (Myrbetriq 50 mg oral tablet, extended release) See instructions TAKE 1 TABLET DAILY (NEED APPOINTMENT FOR FURTHER REFILLS) ?? Unchanged Miscellaneous Rx (Depends and pads) See instructions Urinary incontinence ADULT EXTRA LARGE, USE 6X QD, DX URINRY INCONTINENCE R39.81, SIM 99 RICK AND MARIE [phone] ?? Unchanged Miscellaneous Rx (INCONTINENCE PADS) See instructions ADULT EXTRA LARGE, USE 10X QD, DX URINRY INCONTINENCE R39.81, SIM 99 RICK AND MARIE [phone] ?? Unchanged Nitroglycerin (nitroglycerin 0.4 mg sublingual tablet) 1 tab(s) Sublingual Every 5 minutes as needed for as needed for chest pain not to exceed 3 doses/ 15 min--if pain persists, seek medical attention ?? as needed Unchanged Pantoprazole (pantoprazole 40 mg oral delayed release tablet) 1 tab(s) Oral Daily 05/07 9 am Unchanged Potassium Chloride (Klor-Con 10 10 mEq oral tablet, extended release) 1 tab(s) Oral Daily Duration: 10 Days 05/07 9 am Unchanged sodium bicarbonate (sodium bicarbonate 325 mg oral tablet) 1 tab(s) Oral Daily 05/07 9 am Unchanged Spironolactone (spironolactone 25 mg oral tablet) 0.5 tab(s) Oral Daily 05/07 9 am Unchanged torsemide (torsemide 20 mg oral tablet) 1 tab(s) Oral Daily 05/07 9 am Pharmacy Information [facility] 3: [address] [place] [address] [phone] Prescription Given During Visit Albuterol (Albuterol (Eqv-ProAir HFA) 90 mcg/inh inhalation aerosol) - 1 inhalation = 90 mcg, Inhalation, Every 4 hours, # 6.7 Gm, 0 Refills, [facility] [address] [phone]?? Guaifenesin/Dextromethorphan (dextromethorphan-guaifenesin 10 mg-100 mg/5 mL oral liquid) - 10 mL, By Mouth, Every 4 hours, # 120 mL, 0 Refills, [facility] 3, [address] [place] [id number] [phone]?? Oseltamivir (oseltamivir 75 mg oral capsule) - 75 mg, By Mouth, Daily, # 2 capsule, 0 Refills, [facility] [address] [address] [phone]?? Laboratory Results Below is a partial list of the most recent Laboratory test results done prior to this discharge. You may have had other tests and procedures not included in this list. Please discuss all test resultswith your provider. Est Creatinine Clearance - 17.33 mL/min (05/06/2024) Basic Metabolic Panel (05/06/2024) ???Sodium - 135 mmol/L???Potassium - 4.6 mmol/L???Chloride - 104 mmol/L???Bicarbonate Level - 21 mmol/L???Anion Gap - 10 mmol/L???Glucose Level - 119 mg/dL???BUN - 48 mg/dL???Creatinine-Blood - 2.21 mg/dL???Estimated GFR Creatinine - 22 ML/MIN/1.73 M2???Calcium - 9.1 mg/dL BUN (05/05/2024) ???BUN - 46 mg/dL Calcium Level (05/05/2024) ???Calcium - 9.1 mg/dL CBC (05/06/2024) ???WBC - 3.3 k/mm3???RBC - 2.22 m/mm3???Hgb - 7.6 Gm/dL???Hct - 23.9 %???MCV - 107.7 femtoliters???MCH - 34.2 pg???MCHC - 31.8 Gm/dL???Platelet Count - 188 k/mm3???RDW-SD - 52.6 femtoliters???MPV - 10.0 femtoliters???Nucleated RBC (Automated) - 0.0 #/100 WBC'S???Abs. NRBC - 0.0 k/mm3 CBC w/ Differential (05/04/2024) ???WBC - 6.2 k/mm3???RBC - 2.49 m/mm3???Hgb - 8.4 Gm/dL???Hct - 26.4 %???MCV - 106.0 femtoliters???MCH - 33.7 pg???MCHC - 31.8 Gm/dL???Platelet Count - 204 k/mm3???RDW-SD - 51.7 femtoliters???MPV - 10.0 femtoliters???Nucleated RBC (Automated) - 0.0 #/100 WBC'S???Abs. NRBC - 0.0 k/mm3???Abs. Neut - 5.1 k/mm3???Abs. Lymph - 0.3 k/mm3???Abs. [place] - 0.6 k/mm3???Abs. Eo - 0.1 k/mm3???Abs. Baso - 0.0 k/mm3???Neut % - 83.1 %???Lymph % - 4.9 %???[place] % - 10.2 %???Eos % - 1.0 %???Baso % - 0.5 %???Imm Gran - 0.3 %???Abs. Imm Gran - 0.0 k/mm3 COVID-19, RSV, and Flu A/B, Rapid PCR (05/04/2024) ???Influenza A PCR - POSITIVE???Influenza B PCR - NEGATIVE???RSV PCR - NEGATIVE???COVID-19 PCR Specimen Source - NASAL???COVID-19 PCR Result - NEGATIVE Creatinine (05/05/2024) ???Creatinine-Blood - 2.29 mg/dL???Estimated GFR Creatinine - 21 ML/MIN/1.73 M2 Electrolytes (05/05/2024) ???Sodium - 135 mmol/L???Potassium - 4.9 mmol/L???Chloride - 104 mmol/L???Bicarbonate Level - 20 mmol/L???Anion Gap - 11 mmol/L Glucose Level (05/05/2024) ???Glucose Level - 113 mg/dL You will be contacted within 72 hours with your results. Allergies (NKA means No Known Allergies) Dilaudid??(Hallucinations) lisinopril??(cough,chest tightness) Problems Active Problems??(26) Advanced directives, counseling/discussion?? Anemia?? Arthritis of right ankle?? [facility] ??RN ??Sabi Ruiz #[phone]?? CAD (coronary artery disease)?? Carpal tunnel syndrome, bilateral?? Chronic kidney disease, stage 4 (severe)?? Colonic polyp?? Degenerative cervical disc?? GERD (gastroesophageal reflux disease)?? Heart failure with reduced ejection fraction?? History of gout?? Hypercholesterolemia?? Hypertension?? Ischemic cardiomyopathy with implantable cardioverter-defibrillator (ICD)?? Kidney stone on left side?? Lumbar degenerative disc disease?? OA - Osteoarthritis of knee?? MARCI (obstructive sleep apnea)?? Osteoporosis?? PAF (paroxysmal atrial fibrillation)?? Renal mass, right?? Secondary hyperparathyroidism?? Type 2 diabetes mellitus with chronic kidney disease?? Urinary incontinence?? Uterovaginal prolapse?? Education Materials Below is the list of Educational Leaflet Providered with your Discharge Instructions. WebMD Ignite Patient Education - The Flu (Influenza)?? Web[employer] Ignite Patient Education - Oseltamivir?? Valuables and Belongings I fully understand and agree that [facility] accepts no responsibility for all my personal property including clothing, toilet articles, radios, jewelry, dentures, hearing aids, rings, money, or any other property that is in my possession or is brought to me after admission. I understand certain valuables may be placed in a hospital safe for a short period of time. I understand that the hospital is not liable for loss or damage due to accident, fire, or other natural occurrence while said property is in the safe. I accept full responsibility for any personal property that I keep with me, and will not hold the hospital responsible in case of loss or disappearance. I acknowledge that i have been encouraged to send valuables and belongings home. ?? No Valuables/Belongings: No valuables/belongings present Date for Pt to Sign Valuables/Belongings: 05/04/24 21:29:00 ?? Other Discharge Information ? Case Management Discharge Plan?? Discharge Plan?? Discharge Agency Information?? Discharge Level of Care at Discharge: Homehealth/VNA Name of Agency #1: [facility] V[facility]/Hospice/Home Care: [facility] [phone] Service Categories #1: Physical Therapy, [facility] ?? Service Comments #1: Patient discharging home with [facility] for PT and half-way. Theagency will be in contact wiht you in 1-2 days. If you do not hear from them please contact the agency directly. ?? Pulmonary Rehab Status?? Pulmonary Rehab Discharge Status?? Respiratory Rate: 18 br/min ? Common Emergency Awareness Tips IS IT A [...] are strongly encouraged to quit. Please call [facility] [employer] I Link at [phone] or [phone] ([phone]) or log in to [email or web address] for referrals to smoking cessation programs. ?? 413 Suicide & Crisis Lifeline is available 12/10 if you or someone you know needs to find a reason to keep living. By calling 331 you'll be connected to a skilled, trained counselor at a crisis center in your area. INPATIENT DISCHARGE INSTRUCTIONS SIGNATURE MARGO WHELAN Location:[facility] Registration Date and Time:05/04/2024 14:28 EST Primary Care Physician: Mannie MUÑOZ, Vee, Attending Physician: Virginia Rossi DO, I TORRESMARGO, have received the above patient education materials/instructions and have verbalized understanding. If ambulance or transport services are being used I further acknowledge being given a choice of service. ?? If you need to contact me, please call me at this number: . Patient/Towing Pilot Name: Patient/Towing Pilot Signature: Relationship to Patient: Witness Name/Signature: Date: * Kenna Guardado DO: PERFORM Event Display: Patient Education Leaflets Authored Date: [id number] The Flu (Influenza) ?? 39929 The Flu (Influenza) Updated for the flu season The flu (influenza) is an infection caused by a virus. It affects your respiratory tract. The respiratory tract is made up of your mouth, nose, and lungs, and the passages between them. Unlike a cold, the flu can make you very ill. The flu may lead to a serious lung infection called pneumonia. The flu can cause serious problems and even cause . Because of the risk of severe disease, experts strongly advise getting a flu vaccine before the start of the flu season. This protects you, your family, and others. The flu vaccine and other vaccinescan be given at the same time. People at high risk for problems from the flu are likely to be at high risk for serious problems from COVID-19 and RSV. This makes it important to get a flu vaccine. Viruses that cause influenza spread through the air in droplets when someone who has the flu coughs, sneezes, laughs, or talks. Who is at risk for the flu? Anyone can get the flu. But you're more likely to get the flu if you: ??? Have a weak immune system??? Work in a healthcare setting where there may be flu germs ??? Live or work with someone who hasthe flu ??? Haven???t had the flu vaccine as advised ??? Live in a setting with many other people. This may be an assisted living facility, a [place] health care facility, or a group home or penitentiary. ?? How does the flu spread? The flu is caused by??a??virus. The virus??spreads through the air in droplets when someone who hasthe flu coughs, sneezes, laughs, or talks. You can get infected when you breathe in these??droplets. You can get infected when you touch a surface with droplets on it and then touch your eyes, nose, or mouth. You can pickler helper the virus if you touch used tissues, or share utensils, drinking glasses, or a toothbrush from an infected person. ?? What are the symptoms of the flu? Flu symptoms tend to start quickly. They may last a few days to a few weeks. They include: ??? Fever usually higher than 100.4?? F ( 38??C )??and chills ??? Sore throat and headache ??? Dry cough ???Runny nose ??? Tiredness and weakness ??? Muscle aches ??? Headaches ??? Vomiting and diarrhea ?? Who is at risk for flu complications? For some people, the flu can be very serious. The risk for complications is higher for: ??? Children under??age 5 ??? Adults??age 65??or older ??? People with a chronic illness such as diabetes or heart, kidney, or lung disease ??? People who live in a [place] health care facility or long-term care facility The risk is also higher for people with a weak immune system. This includes people who: ??? Have HIV/AIDS ??? Have cancer ??? Had an organ transplant ??? Are taking immune-suppressing medicines How is the flu diagnosed? Your doctor might suspect the flu based on symptoms alone. However, other infections can cause symptoms similar to the flu. The flu, RSV and COVID-19 can have similar symptoms. To confirm the diagnosis, your doctor might swab your nose or throat using a sterile cotton swab and send this to the lab for testing. ?? How is the flu treated? The flu usually gets better after 7 days or so. In some cases, your??healthcare provider??may prescribe an antiviral medicine. It may help you get well sooner. It may reduce the risk for and severityof complications. For the medicine to help, you need to take it as soon as possible after your symptoms start. The best time is to take it within 48 hours. If you develop pneumonia or other serious illness from the flu, you may need to stay in the hospital. ?? Easing flu symptoms ??? Drink lots of fluids. This includes water, juice, and warm soup. A good rule is to drink enough so that you urinate your normal amount. ??? Get plenty of rest. ??? Ask your??healthcare provider??what to take??for fever and pain. Don't give aspirin to children or teens. It may cause a rare but serious illness called Bruno syndrome. The syndrome affects the liver and brain. ??? Stay away from cigarette smoke, whether it's yours or other people???s. ??? Take warm, steamy showers to help soothe your cough. ??? If you have a sore throat, gargling with warm salty water, sucking on an ice cube, drinking hot water with honey and freshly squeezed lemon juice can help. ??? [place]??provider if your fever is 100.4?? F ( 38??C ) or higher. Call if you become dizzy, lightheaded, or short of breath. ?? Taking??steps to protect others ??? Wash your hands often. Do this especially after coughing or sneezing. If you can't wash, clean your hands with a hand??lining cleaner that has at least 60% alcohol. ??? Cough or sneeze into a tissue. Then throw the tissue away and wash your hands. If you don???t have a tissue, cough and sneeze into the bend of your elbow. ??? Don???t share food, utensils, drinking glasses, or a toothbrush with others. ??? Stay home until??at least 24 hours after fever or chills stop. Some medicines reduce fever. Check your temperature when you stop taking the medicine.? How can the flu be prevented? One of the best ways to prevent the flu is to get a flu vaccine each year. Experts advise that, with rare exceptions, all people age 6 months or older get a flu vaccine every year. This includes people. The flu vaccine is advised even for people with egg allergies. Talk with your healthcare provider before getting the vaccine if: o You are feeling sick on the day of planned vaccination. o You have ever had a severe reaction from the flu vaccine o You have ever had Guillain-Higginbotham?? Syndrome (GBS), a severe paralyzing illness ??? Healthcare providers advise getting the flu vaccine each year as soon as it's available in your area. Flu virus strains change from year to year. The vaccine changes each year. This is to help protect you from flu viruses more likely to cause illness in the upcoming flu season. The vaccine comes in different forms. It's??most often given as a shot into a muscle. A nasal spray is available for healthy people between ages2 and 49 years who aren't . A needle-free form is called a jet injector. It gives the vaccine in a high-pressure stream through the skin into the muscle. This form may be an option for peopleages 18 to 64. Your??healthcare provider??can tell you which vaccine is right for you. ??? Wash your hands often. This is a proven way to help prevent the spread of infection. ??? Carry a hand lining cleaner that has at least 60% alcohol. Use it when you can't use soap and water. Then wash your hands as soon as you can. ??? Try not to touch your eyes, nose, or mouth. ??? At home and work, clean phones, computer keyboards, and toys often with disinfectant wipes. ??? Stay away from others who have the flu or symptoms of the flu. If around people who have the flu, wear a well-fitted mask that covers your mouth and nose. ?? Handwashing tips Handwashing is one of the best ways to prevent many common infections. If you're caring for or visiting someone with the flu, wash your hands each time you enter and leave the room. Follow these steps: ??? Use clean, running water and plenty of soap. Rub your hands together well. ??? Clean the whole hand, including under your nails, between your fingers, and up the wrists. ??? Wash for at least 20??seconds. ??? Rinse, letting the water run down your fingers, not up your wrists. ??? Dry your hands well. Use a paper towel to turn off the faucet and open the door. ?? Using alcohol-based hand it infrastructure specialist Use a hand it infrastructure specialist with at least 60% alcohol if you don't have access to soap and water. Follow these steps: ??? Apply enough of the it infrastructure specialist on your hands to cover all surfaces. ??? Rub your hands together briskly. Clean the backs of your hands, the palms, between your fingers, and up the wrists. ??? Rub until the gel is gone and your hands are dry. This should take about 20 seconds. ?? Preventing the flu in healthcare places The flu is a special concern for people in hospitals and long-term care. To help prevent the spreadof flu, many hospitals and nursing homes take these steps: ??? Healthcare providers wash their hands or use an alcohol-based hand lining cleaner before and after treating each patient. ??? People with the flu have private rooms and bathrooms. Or they may share a room with someone with the same infection. ??? People who are at high risk for the flu but don't have it are encouraged to get the??flu and pneumonia vaccines. ??? All healthcare workers are encouraged or required to??get flu shots. ?? Last Reviewed Date: 2023 ?? 1311-5968 The [employer]. All rights reserved. This information is not intended as a substitute for professional medical care. Always follow your healthcare professional's instructions. ?? * Kenna Guardado DO: PERFORM Event Display: Patient Education Leaflets Authored Date: [id number] Oseltamivir ?? [id number] Oseltamivir Brand Name(s): Tamiflu? WHY is this medicine prescribed? Oseltamivir is used to treat some types of influenza infection ('flu') in adults, children, and infants (older than 2 weeks of age) who have had symptoms of the flu for no longer than 2 days. This medication is also used to prevent some types of flu in adults and children (older than 1 year of age)when they have spent time with someone who has the flu or when there is a flu outbreak. Oseltamiviris in a class of medications called neuraminidase inhibitors. It works by stopping the spread of the flu virus in the body. Oseltamivir helps shorten the time that flu symptoms such as a stuffy or runny nose, sore throat, cough, muscle or joint aches, tiredness, headache, fever, and chills last. Ose ltamivir will not prevent bacterial infections, which may occur as a complication of the flu. HOW should this medicine be used? Oseltamivir comes as a capsule and a suspension (liquid) to take by mouth. When oseltamivir is usedto treat flu symptoms, it is usually taken two times a day (morning and evening) for 5 days. When oseltamivir is used to prevent flu, it is usually taken once a day for at least 10 days, or for up to6 weeks during a community flu outbreak. Oseltamivir may be taken with or without food, but is lesslikely to cause upset stomach if it is taken with food or milk. Follow the directions on your prescription label carefully, and ask your doctor or pharmacist to explain any part that you do not understand. Take oseltamivir exactly as directed. Do not take more or less of it or take it more often than prescribed by your doctor. It is important to know the dose of medication your doctor has prescribed and to use a measuring device that will measure the dose accurately. If you are taking the medication yourself or giving it to a child older than 1 year of age, you can use the device provided by the recreation technician to measure the dose according to the instructions below. If you are giving the medication to a child under one year of age, you should not use the measuring device provided by the recreation technician because it cannot accurately measure small doses. Instead, use the device provided by your pharmacist. If the commercial suspension is unavailable and your pharmacist prepares a suspension for you, he or she will provide a device to measure your dose. Never use a household teaspoon to measure doses of oseltamivir oralsuspension. If you are giving the commercial suspension to an adult or child over one year of age, follow thesesteps to measure the dose using the syringe provided: ??? Shake the suspension well (for about 5 seconds) before each use to mix the medication evenly. ??? Open the bottle by pushing down on the cap and turning the cap at the same time. ??? Push the plunger of the measuring device completely down to the tip. ??? Insert the tip of the measuring device firmly into the opening on the top of the bottle. ??? Turn the bottle (with the measuring device attached) upside down. ??? Pull back on the plunger slowly until the amount of suspension prescribed byyour doctor fills the measuring device to the appropriate marking. Some larger doses may need to bemeasured using the measuring device twice. If you are not sure how to correctly measure the dose your doctor has prescribed, ask your doctor or pharmacist. ??? Turn the bottle (with the measuring device attached) right-side up and slowly remove the measuring device. ??? Take oseltamivir directly into your mouth from the measuring device; do not mix with any other liquids. ??? Replace the cap on the bottle and close tightly. ??? Remove the plunger from the rest of the measuring device and rinse both parts under running tap water. Allow the parts to air dry before putting back together for the next use. Call your doctor or pharmacist to find out how you should measure a dose of oseltamivir suspension if you do not have the measuring device that came with this medication. If you have difficulty swallowing capsules, your doctor may tell you to open the capsule and mix the contents with a sweetened liquid. To prepare doses of oseltamivir for people who cannot swallow the capsules: ??? Hold the capsule over a small bowl and carefully pull open the capsule and empty all of the powder from the capsule into the bowl. If your doctor has instructed you to take more than one capsule for your dose, then open the correct number of capsules into the bowl. ??? Add a small amount of sweetened liquid, such as regular or sugar-free chocolate syrup, corn syrup, caramel topping, or light brown sugar dissolved in water to the powder. ??? Stir the mixture. ??? Swallow the entire contents of this mixture right away. Continue to take oseltamivir until you finish the prescription, even if you start to feel better. Do not stop taking oseltamivir without talking to your doctor. If you stop taking oseltamivir too soon or skip doses, your infection may not be fully treated, or you may not be protected from the flu. If you feel worse or develop new symptoms while taking oseltamivir, or if your flu symptoms do not start to get better, call your doctor. Ask your pharmacist or doctor for a copy of the recreation technician's information for the patient. Are there OTHER USES for this medicine? Oseltamivir may be used to treat and prevent infections from magdy (bird) influenza (a virus that usually infects birds but can also cause serious illness in humans). Oseltamivir also may be used to treat and prevent infections from influenza A (H1N1). This medication may be prescribed for other uses; ask your doctor or pharmacist for more information. What SPECIAL PRECAUTIONS should I follow? Before taking oseltamivir, ??? tell your doctor and pharmacist if you are allergic to oseltamivir, any other medications, or any of the ingredients in oseltamivir capsules or suspension. Ask your pharmacist or check the recreation technician's patient information for a list of the ingredients. ??? tell your doctor what prescription and nonprescription medications, vitamins, nutritional supplements and herbal products you are takingor plan to take while taking oseltamivir. Your doctor may need to change the doses of your medications or monitor you carefully for side effects. ??? tell your doctor if you have ever taken oseltamivir to treat or prevent the flu. ??? tell your doctor if you have any disease or condition that affects your immune system such as human immunodeficiency virus (HIV) or acquired immunodeficiency syndrome (AIDS) or if you have heart, lung, or kidney disease. ??? tell your doctor if you are , plan to become , or are breast-feeding. If you become while taking oseltamivir, callyour doctor. ??? you should know that people, especially children and teenagers, who have the flu may become confused, agitated, or anxious, and may behave strangely, have seizures or hallucinate (see things or hear voices that do not exist), or harm or kill themselves. You or your child may develop these symptoms whether or not you or your child uses oseltamivir, and the symptoms may begin shortly after starting treatment if you do use the medication. If your child has the flu, you should watch his or her behavior very carefully and call the doctor right away if he or she becomes confused orbehaves abnormally. If you have the flu, you, your family, or your caregiver should call the doctorright away if you become confused, behave abnormally, or think about harming yourself. Be sure thatyour family or caregiver knows which symptoms may be serious so they can call the doctor if you areunable to seek treatment on your own. ??? ask your doctor if you should receive a flu vaccination each year. Oseltamivir does not take the place of a yearly flu vaccine. If you received or plan to receive the intranasal flu vaccine (FluMist; flu vaccine that is sprayed into the nose), you should tell your doctor before taking oseltamivir. Oseltamivir may make the intranasal flu vaccine less effective if it is taken up to 2 weeks after or up to 48 hours before the intranasal flu vaccine is given. ??? if you have fructose intolerance (an inherited condition in which the body lacks the protein needed to break down fructose, a fruit sugar, such as sorbitol), you should know that the oseltamivirsuspension is sweetened with sorbitol. Tell your doctor if you have fructose intolerance. What should I do IF I FORGET to take a dose? If you forget to take a dose, take it as soon as you remember it. If it is no longer than 2 hours before your next scheduled dose, skip the missed dose and continue your regular dosing schedule. If you miss several doses, call your doctor for directions. Do not take a double dose to make up for a missed one. What SIDE EFFECTS can this medicine cause? Some side effects can be serious. If you experience any of these symptoms or those mentioned in theSPECIAL PRECAUTIONS section, call your doctor immediately: ??? rash, hives, or blisters on the skin ??? mouth sores ??? itching ??? swelling of the face or tongue ??? difficulty breathing or swallowing ??? hoarseness ??? confusion ??? speech problems ??? shaky movements ??? hallucinations (seeing things or hearing voices that do not exist) If you experience a serious side effect, you or your doctor may send a report to the Food and Drug Administration's (FDA) MedWatch Adverse Event Reporting program online (https://www.fda.gov/Safety/MedWatch) or by phone ( ). What should I know about STORAGE and DISPOSAL of this medication? Keep this medication in the container it came in and out of reach of children. Store the capsules at room temperature and away from excess heat and moisture (not in the bathroom). Commercial oseltamivir suspension can be kept at room temperature for up to 10 days or in the refrigerator for up to 17days. Oseltamivir suspension prepared by a pharmacist can be kept at room temperature for up to 5 days or in the refrigerator for up to 35 days. Do not freeze oseltamivir suspension. It is important to keep all medication out of sight and reach of children as many containers (such as weekly pill minders and those for eye drops, creams, patches, and inhalers) are not child-resistant and young children can open them easily. To protect young children from poisoning, always lock safety caps and immediately place the medication in a safe location ??? one that is up and away and out of their sight and reach. https://www.AppHero.org Unneeded medications should be disposed of in special ways to ensure that pets, children, and otherpeople cannot consume them. However, you should not flush this medication down the toilet. Instead,the best way to dispose of your medication is through a medicine take-back program. Talk to your pharmacist or contact your local garbage/recycling department to learn about take-back programs in your community. See the FDA's Safe Disposal of Medicines website (https://goo.gl/c4Rm4p) for more information if you do not have access to a take-back program. What should I do in case of OVERDOSE? In case of overdose, call the poison control helpline at . Information is also available online at https://www.poisonhelp.org/help. If the victim has collapsed, had a seizure, has trouble breathing, or can't be awakened, immediately call emergency services at 331. Symptoms of overdose may include: ??? nausea ??? vomiting What OTHER INFORMATION should I know? Oseltamivir will not stop you from giving the flu to others. You should wash your hands frequently,and avoid practices such as sharing cups and utensils that can spread the virus to others. Do not let anyone else take your medication. Your prescription is probably not refillable. If you still have symptoms of the flu after you finish taking oseltamivir, call your doctor. It is important for you to keep a written list of all of the prescription and nonprescription (noth-iis-tdzyxnm) medicines you are taking, as well as any products such as vitamins, minerals, or otherdietary supplements. You should bring this list with you each time you visit a doctor or if you areadmitted to a hospital. It is also important information to carry with you in case of emergencies. This report on medications is for your information only, and is not considered individual patient advice. Because of the changing nature of drug information, please consult your physician or pharmacist about specific clinical use. The [place] [employer] represents that the information provided hereunder was formulated with a reasonable standard of care, and in conformity with professional standards in the field. The [place] [employer] makes no representations or warranties, express or implied, including, but not limited to, any implied warranty of merchantability and/or fitness for a particular purpose, with respect to such information and specifically disclaims all such warranties. Users are advised that decisions regarding drug therapy are complex medical decisions requiring the independent, informed decision of an appropriate health career center advisor, and the information is provided for informational purposes only. The entire monograph for a drug should be reviewed for a thorough understanding of the drug's actions, uses and side effects. The [place] [employer] does not endorse or recommend the use of any drug.The information is not a substitute for medical care. AHFS?? Patient Medication Information???. ?? Copyright, 2023. The [employer] [employer]??, [address] [facility], [address], [place], [place]. All Rights Reserved. Duplication for commercial use must be authorized by [facility]. Selected Revisions: April 05, 2017. AHFS?? Patient Medication Information???. ?? Copyright, 2024 ?? Patient Care team information Care Team Personnel Name: Alejo Cadet MD Position: [facility] Physician - Gastroenterology Member Role: Lifetime Consulting Physician Address: [facility] [address] [facility] Gastroenterology [place] [id number] Telecom: Name: Rafita Edward MD Position: [facility] Renal MD Member Role: Lifetime Consulting Physician Address: [facility] [address] [facility] [place], [place] - [place] Telecom: Name: Prashanth Rose RN Position: [facility] RN Member Role: Primary Care Nurse Name: Dorothea Wang RN Position: [facility] RN Member Role: Primary Care Nurse Name: Ledy Forbes RN Position: [facility] SN RN Member Role: Primary Care Nurse Name: Kavita Pagan RN Position: [facility] Onco RN Member Role: Primary Care Nurse Name: Prashanth Carmona RN Position: [facility] RN Member Role: Primary Care Nurse Name: Jaspreet Menchaca MD Position: [facility] Renal MD Member Role: Lifetime Consulting Physician Address: [address] [facility] [place], [place] - [place] Telecom: Name: Maryam Ayers RN Position: [facility] ED RN W/OE and Tasks Member Role: Primary Care Nurse Name: Maxine Diallo RN Position: [facility] AMB Nurse Member Role: Primary Care Nurse Name: Estephanie Carballo RN Position: [facility] RN Member Role: Primary Care Nurse Name: Odalys Chau RN Position: [facility] SN RN Member Role: Primary Care Nurse Name: Reji Willson RN Position: [facility] RN Member Role: Primary Care Nurse Name: Katie Holden RN Position: [facility] AMB Nurse Member Role: Primary Care Nurse Name: Evelyne Garcia RN Position: [facility] RN Member Role: Primary Care Nurse Name: Sol Noblse Position: [facility] AMB Nurse Member Role: Lifetime Consulting Physician Name: Johnna Baker RN Position: [facility] RN Member Role: Primary Care Nurse Name: Fantasma Ac RN Position: [facility] SN RN Member Role: Primary Care Nurse Name: Shanda Sharp RN Position: [facility] RN Member Role: Primary Care Nurse Name: Sabi Ruiz Position: [facility] plastics engineer Member Role: Compensator Worker Name: Vee Chand MD Position: [facility] Physician - Primary Care Member Role: PCP Address: [address] [place] [address] [place] Telecom: Name: Ta Kolb RN Position: [facility] ED RN W/OE and Tasks Member Role: Primary Care Nurse Name: Neftaly Morley MD Position: [facility] Outreach Member Role: Lifetime Consulting Physician Address: [address] [facility], [place] [address]- Telecom: Name: Eva Camarena RN Position: [facility] [place] Office Staff Member Role: Primary Care Nurse Name: Johnna Can CNM Position: [facility] Engineer Rf Deployment Member Role: Primary Care Nurse Address: [address] [place] [address]- [place] Telecom: Name: Brenda Brown RN Position: [facility] SN RN Member Role: Primary Care Nurse Name: David Mcwilliams MD Position: [facility] Renal MD Member Role: Lifetime Consulting Physician Address: [address] [facility] [place] [address]- Telecom: Name: Michelle Castillo RN Position: [facility] RN Member Role: Primary Care Nurse Name: Sabi Grady RN Position: [facility] RN Member Role: Primary Care Nurse Name: Sheryl Gaytan Position: [facility] RN Member Role: Primary Care Nurse Name: Gonzalo Naylor RN Position: [facility] RN Member Role: Primary Care Nurse Care Team Related Persons Name: INGE PEREZ Name: STEFFANY FUENTES Insurance Providers Guarantor name: MARGO TORRES Health Plan Information #: 1 Payer: MEDICARE A INPT 25 Member Number: [id number] Policy Number: NA Group Number: NA Health Plan Information #: 2 Payer: MEDICARE PART B OUTPT Member Number: [id number] Policy Number: NA Group Number: NA Health Plan Information #: 3 Payer: FOR LIFE MCR A ONLY Member Number: [id number] Policy Number: NA Group Number: NA Health Plan Information #: 4 Payer: FOR LIFE MCR A ONLY Member Number: [id number] Policy Number: NA Group Number: NA
--- OUTSIDE RECORDS SUMMARY | 2024-05-26 17:01 | XMS_ITS | Continuity of Care Document ---
Author Organization [facility] Address [address] [place] [address]- Support Name Relationship Address Phone ANI PEREZ [...] Unknown U navailable Care Team Providers Care Shift Superintendent Name Role Phone Mannie MUÑOZ, Vee Primary Care Physician En[facility] [id number] Date(s): 04/04/24 - 05/12/24 [facility] [address] [place] [id number] Attending Physician: Natty Aguilar MD Admitting Physician: [...] virus vaccine, inactivated 3 01/21/07 Gi tobi [id number] 12y+ bivalent booster vax 01/28/22 Recorded SARS-CoV-2 (COVID-19) mRNA BNT-162b2 vac 02/04/21 Recorded SARS-CoV-2 (COVID-19) Ad26 vaccine 06/19/20 Record ed pneumococcal 13-valent vaccine 08/09/14 Given pneumococcal 13-valent vaccine 08/09/14 Given tetanus/diphtheria/pertussis, acel(Tdap) 02/12/14 Given Fluzone (oldterm) 4 12/26/13 Given pneumococcal 23-valent vaccine 05/06/13 Given Influenza Virus Vaccine (oldterm) 5 05/15/08 Given Pneumococcal Vaccine (oldterm) 6 10/29/05 Given 1Result Comment: [facility] [id number] 2Result Comment: [facility] [id number] 3Admin Note: VIS GIVEN 4Admin Note: CDC VIS reviewed 5Admin Note: vis given 6Admin Note: vis given Medications Albuterol (Eqv-ProAir HFA) 90 mcg/inh inhalation aerosol 1 inhalation = 90 mcg, Inhalation, Every 4 hours, PRN as needed for shortness of breath or wheezing, # 6.7 Gm, 0 Refills, Maintenance, 05/06/24 9:51:00 AM EST, Aerosol, [facility], Partial fill upon patient request [...] EST, Route to Pharmacy Electronically, [facility], 157.9, cm, 12/21/23 15:16:00 EDT, [...] DX URINRY INCONTINENCE R39.81, SIM 99 VENU [phone], 02/13/22 2:43:00 PM EST, Supply Start Date: 02/13/22 Status: Ordered Quantity: 180.0 Unit: each Repeat number: 12 Indication: Unspecified urinary incontinence dextromethorphan-guaifenesin 10 mg-100 mg/5 mL oral liquid 10 mL, By Mouth, Every 4 hours, PRN Cough, # 120 mL, 0 Refills, Acute 05/19/24 12:00:00 PM EST, 05/06/24 9:50:00 AM EST, Syrup, [facility], Partial fill upon patient request if [...] 1 Refills, Maintenance, 04/05/24 3:29:00 PM EST, [place], [id number], Partial fill [...] DX URINRY INCONTINENCE R39.81, SIM 99 VENU [phone], 02/13/22 2:45:00 PM EST, Supply Start Date: [...] Maintenance, 04/19/24 2:34:00 PM EST, [facility], 94, TAKE 30MLS (2 TABLESPOONS) [...] 8:38:00 AM EDT, Route to Pharmacy Electronically, [facility], Partialfill upon patient request if [...] Refills, Maintenance, 11/30/23 7:46:00 AM EDT, [facility], 157.9, cm, 10/14/23 16:09:00 EDT, [...] Dr Dalal/ [facility] Social History Social History Type Response Smoking Status Former smoker; Tobac co user in household: No; Other: start age 40 quit 2013; entered on: 10/19/18 Sex Sex Representation Female (finding) Patient Care team information Care Team Personnel Name: Alejo Cadet MD Position: [facility] Physician - Gastroenterology Member Role: Lifetime Consulting Physician Address: [address] [facility] [facility] [place] [address]- Telecom: Name: Rafita Edward MD Position: [facility] Renal MD Member Role: Lifetime Consulting Physician Address: [address] [place] [address] [address] [facility] [place] [address]- Telecom: Name: Prashanth Rose RN Position: [facility] RN Member Role: Primary Care Nurse Name: Dorothea Wang RN Position: [facility] RN Member Role: Primary Care Nurse Name: Ledy Forbes RN Position: [facility] SN RN Member Role: Primary Care Nurse Name: Kavita Pagan RN Position: [facility] Onco RN Member Role: Primary Care Nurse Name: Prashanth Carmona RN Position: [facility] RN Member Role: Primary Care Nurse Name: Jaspreet Menchaca MD Position: [facility] Renal MD Member Role: Lifetime Consulting Physician Address: [address] [place] [address] [address] [facility] [place], [place] - Telecom: Name: Maryam Ayers RN Position: [facility] ED RN W/OE and Tasks Member Role: Primary Care Nurse Name: Maxine Diallo RN Position: [facility] AMB Nurse Member Role: Primary Care Nurse Name: Estephanie Carballo RN Position: [facility] RN Member Role: Primary Care Nurse Name: Odalys Chau RN Position: [facility] SN RN Member Role: Primary Care Nurse Name: Reji Willson RN Position: [facility] RN Member Role: Primary Care Nurse Name: Katie Holden RN Position: [facility] AMB Nurse Member Role: Primary Care Nurse Name: Evelyne Garcia RN Position: [facility] RN Member Role: Primary Care Nurse Name: Sol Nobles Position: [facility] AMB Nurse Member Role: Lifetime Consulting Physician Name: Johnna Baker RN Position: [facility] RN Member Role: Primary Care Nurse Name: Fantasma Ac RN Position: [facility] SN RN Member Role: Primary Care Nurse Name: Shanda Sharp RN Position: [facility] ED RN W/OE and Tasks Member Role: Primary Care Nurse Name: Sabi Ruiz Position: [facility] psychologist research assistant Member Role: Manager User Interface Name: Vee Chand MD Position: [facility] Physician - Primary Care Member Role: PCP Address: [address] [facility] 3rd Floor [facility] [address]- [place] Telecom: Name: Ta Kolb RN Position: [facility] ED RN W/OE and Tasks Member Role: Primary Care Nurse Name: Neftaly Morley MD Position: [facility] Outreach Member Role: Lifetime Consulting Physician Address: [address] [facility] [place] [address]- [place] Telecom: Name: Eva Camarena RN Position: [facility] [place] Office Staff Member Role: Primary Care Nurse Name: Johnna Can CNM Position: [facility] Sheet Ironworker Member Role: Primary Care Nurse Address: [address] [place] [address]- [place] Telecom: Name: Brenda Brown RN Position: [facility] SN RN Member Role: Primary Care Nurse Name: David Mcwilliams MD Position: [facility] Renal MD Member Role: Lifetime Consulting Physician Address: [address] [facility] [place] [address]- [place] Telecom: Name: Michelle Castillo RN Position: [facility] RN Member Role: Primary Care Nurse Name: Sabi Grady RN Position: [facility] RN Member Role: Primary Care Nurse Name: Sheryl Gaytan Position: [facility] RN Member Role: Primary Care Nurse Name: Gonzalo Naylor RN Position: [facility] RN Member Role: Primary Care Nurse Care Team Related Persons Name: ANI PEREZ Name: STEFFANY FUENTES Insurance Providers Guarantor name: BEVERLY TORRES Health Plan Information #: 1 Payer: MEDICARE PART B OUTPT Member Number: [id number] Policy Number: NA Group Number: NA Health Plan Information #: 2 Payer: FOR LIFE MCR A ONLY Member Number: [id number] Policy Number: NA Group Number: NA
== END 2024-05-26 15:51 | disposition home or self-care (01) ==
PROVIDERS: PCP Internal Medicine; Visit Provider Internal Medicine Nephrology
DX: I12.9 Hypertensive chronic kidney disease with stage 1 through stage 4 chronic kidney disease, or unspecified chronic kidney disease (principal); N18.4 Chronic kidney disease, stage 4 (severe); N25.81 Secondary hyperparathyroidism of renal origin; N18.32 Chronic kidney disease, stage 3b; D63.1 Anemia in chronic kidney disease
CPT/HCPCS: 99214

== ENCOUNTER → 2024-05-26 15:29 | Outpatient (BNVA) | payer MEDICARE, OTHER, SELFPAY | PROVIDERS: PCP Internal Medicine; Visit Provider Internal Medicine Nephrology | DX: I12.9 Hypertensive chronic kidney disease with stage 1 through stage 4 chronic kidney disease, or unspecified chronic kidney disease (principal); E11.22 Type 2 diabetes mellitus with diabetic chronic kidney disease; I25.10 Atherosclerotic heart disease of native coronary artery without angina pectoris; I42.8 Other cardiomyopathies; I48.0 Paroxysmal atrial fibrillation; N25.81 Secondary hyperparathyroidism of renal origin; D63.1 Anemia in chronic kidney disease; N18.4 Chronic kidney disease, stage 4 (severe) | CPT/HCPCS: 96372; 99212; Q5106 ==

== ENCOUNTER 2024-07-07 15:29 | Outpatient (AMB) | payer MEDICARE, OTHER, SELFPAY ==
--- OUTSIDE RECORDS SUMMARY | 2024-07-07 15:32 | XMS_ITS | Clinical Summary ---
Author Organization [facility] Address [address] [place] [address] Phone Care Team Providers Care Cyber Security Architect Name Role Phone Vee Chand MD Primary [...] 08/07/2020 Stage 3a chronic kidney disease 08/07/2020 [id number] renal failure 12/16/2019 Acute urinary tract infection [...] atrial fibrillation 04/17/2020 08/07/2020 Personal history of colon polyp 04/17/2020 08/07/2020 Presence of automatic implan table cardiac defibrillator 04/17/2020 08/07/2020 Type 2 diabetes mellitus without complication 04/17/1908/07/2020 Anemia 12/07/2019 08/07/2020 Atherosclerotic heart diseas e of [place] coronary artery without angina pectoris 12/07/2019 08/07/2020 [...] 04/04/2019 08/06/2021 Deep venous thrombosis 04/04/201908/06 Immunizations Immunization Administration Dates Next Due Influenza TIV (IM) [...] Due Date Last Done Comments Influenza Vaccine (Season Ended) 2024 01/02/2021, 12/21/2019, 12/19/2019, Additional history exists Pneumococcal Vaccine: 50+ Years Completed 08/09/2014, 06/09/2014, 06/20/2013, Additional history exists Pneumococcal Vaccine: Peds (0 to 5 Years) and At-Risk Patients (6 to 49 Years) Discontinued 08/09/2014, 06/09/2014, 06/20/2013, Additional history exists Hepatitis B Vaccine Aged Out No longe r eligible based on patient's age to complete this topic Insurance Medicare [facility] [address] [place] [id number] Medicare [facility] [address] [place] [id number] Care Teams Cyber Security Architect Relationship Specialty Start Date End Date Vee Chand MD [address] [place] [address] [address] [place] [address] PCP - General Internal Medicine 08/07/20
--- OUTSIDE RECORDS SUMMARY | 2024-07-07 15:32 | XMS_ITS | Clinical Summary ---
Author Organization Unknown Care Team Providers Care Field Crew Chief Name Role Phone MELODY RODRÍGUEZ MD, NEIL Unavailable Angy MANTILLA RN, ADMISSION NURSE, LONNIE Unavail able Unavailable HI NAVARRO, CLINICAL SIGN PAINTER, SANAZ Hsieh available Unavailable KALEB OLIVERA RN Unavailable Unavailable Payers Payer Name Policy Type Policy Number Effective Date Expira tion Date MEDICARE - [facility] - [id number] Problems Condition Name Condition Details Condition Category Status Onset Date Resolution Date Last Treatment Date Treating Clinician Comments TYPE 2 DIABETES MELLITUS W DIABETIC CHRONIC KIDNEY DISEASE Active 03-22 00:00: 00 CHRONIC KIDNEY DISEASE, STAGE 4 (SEVERE) Active 03-22 00:00: 00 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 03-22 00:00: 00 HYPERTENSIVE HEART DISEASE WITH HEART FAILURE Active 03-22 00:00: 00 CHRONIC SYSTOLIC (CONGESTIVE) HEART FAILURE Active 03-22 00:00: 00 PAROXYSMAL ATRIAL FIBRILLATION Active 03-22 00:00: 00 SECONDARY HYPERPARATHY ROIDISM OF RENAL ORIGIN Active 03-22 00:00: 00 ATHSCL HEART DISEASE OF [place] CORONARY ARTERY W/O ANG PCTRS Active 03-22 00:00: 00 OSTEOARTHRIT IS OF [place], UNSPECIFIED Active 03-22 00:00: 00 PRIMARY OSTEOARTHRIT IS, RIGHT ANKLE AND FOOT Active 03-22 00:00: 00 AGE-RELATED OSTEOPOROSIS W/O [...] 00 GOUT, UNSPECIFIED Active 03-22 00:00: 00 Obesity, class 3 Active 03-22 00:00: 00 BODY MASS INDEX [BMI] 27.0-27.9, ADULT Active 03-22 00:00: 00 PERSONAL HISTORY OF NICOTINE DEPENDENCE Active 03-22 00:00: 00 Problems related to health literacy Active 03-22 00:00: 00 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 Active 03-22 00:00: 00 [...] 2020-03 00:00: 00 11-13 23:59 :00 No [id number] 1 tablet DAILY 1 tablet DAILY (route: oral) Med Classific ation: Gout and Hyperuric emia Therapy atorvastati n 80 mg tablet 2020-03 00:00: 00 11-13 23:59 :00 No [id number] 1 tablet DAILY 1 tablet DAILY (route: oral) Med Classific ation: Cardiovas cular Therapy Agents Colace 100 mg capsule 2020-03 00:00: 00 11-13 23:59 :00 No [id number] 1 capsule NEEDED 1 capsule NEEDED (route: oral) Med Classific ation: Gastroint estinal Therapy Agents colchicine 0.6 mg capsule 2020-03 00:00: 00 11-13 23:59 :00 No [id number] 2 capsule NEEDED 2 capsule NEEDED (route: oral) Med Classific ation: Gout and Hyperuric emia Therapy Despec-DM (phenylephr ine-DM-guai f) 5 mg-10 mg-100 mg/5 mL oral liquid 2020-03 00:00: 00 11-13 23:59 :00 No [id number] Per instruc tions NEEDED Per instructio ns NEEDED (route: oral) Med Classific ation: Respirato ry Therapy Agents Lasix 20 mg tablet 2020-03 00:00: 00 11-13 23:59 :00 No [id number] 1 tablet DAILY 1 tablet DAILY (route: oral) Med Classific ation: Cardiovas cular Therapy Agents Lasix 40 mg tablet 2020-03 00:00: 00 11-13 23:59 :00 No [id number] 1 tablet DAILY 1 tablet DAILY (route: oral) Med Classific ation: Cardiovas cular Therapy Agents melatonin 3 mg tablet 2020-03 00:00: 00 11-13 23:59 :00 No [id number] 2 tablet BEDTIME 2 tablet BEDTIME (route: oral) Med Classific ation: Central Nervous System Agents Miralax 17 gram/dose oral powder 2020-03 00:00: 00 11-13 23:59 :00 No [id number] Per instruc tions NEEDED Per instructio ns NEEDED (route: oral) Med Classific ation: Gastroint estinal Therapy Agents nystatin 100,000 unit/gram topical powder 2020-03 00:00: 00 11-13 23:59 :00 No [id number] Per instruc tions 2 TIMES DAILY Per instructio ns 2 TIMES DAILY (route: topical) Med Classific ation: Dermatolo gical Protonix 40 mg tablet,beto yed release 2020-03 00:00: 00 11-13 23:59 :00 No [id number] 1 tablet DAILY 1 tablet DAILY (route: oral) Med Classific ation: Gastroint estinal Therapy Agents Vitamin B-12 100 mcg tablet 2020-03 00:00: 00 11-13 23:59 :00 No [id number] 1 tablet DAILY 1 tablet DAILY (route: oral) Med Classific ation: Electroly te Balance-N utritiona l Products Myrbetriq 50 mg tablet,exte nded release 11-16 00:00: 00 12-31 23:59 :00 No [id number] 1 tablet DAILY 1 tablet DAILY (route: oral) Med Classific ation: Genitouri nary Therapy calcitriol 0.25 mcg capsule 11-06 00:00: 00 11-16 00:00 :00 No [id number] Per instruc tions Per instructio ns (route: oral) Med Classific ation: Electroly te Balance-N utritiona l Products calcitriol 0.25 mcg capsule 11-06 00:00: 00 04-15 23:59 :00 No [id number] Per instruc tions THREE TIMES A WEEK Per instructio ns THREE TIMES A WEEK (route: oral) Med Classific ation: Electroly te Balance-N utritiona l Products pantoprazol e 40 mg tablet,beto yed release 10-31 00:00: 00 11-16 00:00 :00 No [id number] Per instruc tions Per instructio ns (route: oral) Med Classific ation: Gastroint estinal Therapy Agents pantoprazol e 40 mg tablet,beto yed release 10-31 00:00: 00 04-15 23:59 :00 No [id number] Per instruc tions EVERY DAY Per instructio ns EVERY DAY (route: oral) Med Classific ation: Gastroint estinal Therapy Agents allopurinol 100 mg tablet 11-16 00:00: 00 04-15 23:59 :00 No [id number] .5 tablet DAILY .5 tablet DAILY (route: oral) Med Classific ation: Gout and Hyperuric emia Therapy allopurinol 100 mg tablet 10-15 00:00: 00 11-16 00:00 :00 No [id number] Per instruc tions EVERY DAY Per instructio ns EVERY DAY (route: oral) Med Classific ation: Gout and Hyperuric emia Therapy atorvastati n 80 mg tablet 10-15 00:00: 00 11-16 00:00 :00 No [id number] Per instruc tions Per instructio ns (route: oral) Med Classific ation: Cardiovas cular Therapy Agents atorvastati n 80 mg tablet 10-15 00:00: 00 11-16 00:00 :00 No [id number] Per instruc tions AT BEDTIME Per instructio ns AT BEDTIME (route: oral) Med Classific ation: Cardiovas cular Therapy Agents cephalexin 500 mg tablet 11-16 00:00: 00 12-31 23:59 :00 No [id number] 1 tablet 2 TIMES DAILY 1 tablet 2 TIMES DAILY (route: oral) Med Classific ation: Anti-Infe ctive Agents cyanocobala min (B12)-cobam amide 5,000 mcg-100 mcg sublingual tablet 11-16 00:00: 00 04-15 23:59 :00 No [id number] 1 tablet DAILY 1 tablet DAILY (route: sublingual ) Med Classific ation: Electroly te Balance-N utritiona l Products melatonin 3 mg tablet 11-16 00:00: 00 04-15 23:59 :00 No [id number] 1 tablet BEDTIME 1 tablet BEDTIME (route: oral) Med Classific ation: Central Nervous System Agents metoprolol succinate ER 100 mg tablet,exte nded release 24 hr 11-16 00:00: 00 04-15 23:59 :00 No [id number] 1 tablet DAILY 1 tablet DAILY (route: oral) Med Classific ation: Cardiovas cular Therapy Agents polyethylen e glycol 3350 17 gram oral powder packet 11-16 00:00: 00 04-15 23:59 :00 No [id number] 1 powder in packet DAILY 1 powder in packet DAILY (route: oral) Med Classific ation: Gastroint estinal Therapy Agents Senna Plus 8.6 mg-50 mg capsule 11-16 00:00: 00 04-15 23:59 :00 No [id number] 1 capsule 2 TIMES DAILY 1 capsule 2 TIMES DAILY (route: oral) Med Classific ation: Gastroint estinal Therapy Agents sodium bicarbonate 650 mg tablet 11-16 00:00: 00 12-31 23:59 :00 No [id number] 1 tablet 2 TIMES DAILY 1 tablet 2 TIMES DAILY (route: oral) Med Classific ation: Gastroint estinal Therapy Agents torsemide 20 mg tablet 11-16 00:00: 00 04-15 23:59 :00 No [id number] 1 tablet EVERY OTHER DAY 1 tablet EVERY OTHER DAY (route: oral) Med Classific ation: Cardiovas cular Therapy Agents cephalexin 500 mg tablet 12-18 00:00: 00 12-23 23:59 :00 No [id number] 500 mg 4 TIMES DAILY 500 mg 4 TIMES DAILY (route: oral) Med Classific ation: Anti-Infe ctive Agents potassium chloride 20 mEq oral packet 12-18 00:00: 00 12-23 23:59 :00 No [id number] 20 mEq DAILY 20 mEq DAILY (route: oral) Med Classific ation: Electroly te Balance-N utritiona l Products atorvastati n 80 mg tablet 2021-03 00:00: 00 04-15 23:59 :00 No [id number] 1 tablet BEDTIME 1 tablet BEDTIME (route: oral) Med Classific ation: Cardiovas cular Therapy Agents torsemide 20 mg tablet 04-07 00:00: 00 04-23 23:59 :00 No [id number] 1 tablet DAILY 1 tablet DAILY (route: oral) Med Classific ation: Cardiovas cular Therapy Agents allopurinol 100 mg tablet 03-25 00:00: 00 12-21 23:59 :00 No [id number] Per instruc tions EVERY DAY Per instructio ns EVERY DAY (route: oral) Med Classific ation: Gout and Hyperuric emia Therapy metoprolol succinate ER 100 mg tablet,exte nded release 24 hr 03-25 00:00: 00 12-21 23:59 :00 No [id number] Per instruc tions EVERY DAY Per instructio ns EVERY DAY (route: oral) Med Classific ation: Cardiovas cular Therapy Agents atorvastati n 80 mg tablet 04-21 00:00: 00 12-21 23:59 :00 No [id number] 1 tablet BEDTIME 1 tablet BEDTIME (route: oral) Med Classific ation: Cardiovas cular Therapy Agents calcitriol 0.25 mcg capsule 04-21 00:00: 00 12-21 23:59 :00 No [id number] 1 capsule DAILY 1 capsule DAILY (route: oral) Med Classific ation: Electroly te Balance-N utritiona l Products calcium cit 1,000 mg calcium-vit D3 10 mcg(400 unit)/30 mL oral liquid 04-21 00:00: 00 12-21 23:59 :00 No [id number] 30 mL DAILY 30 mL DAILY (route: oral) Med Classific ation: Electroly te Balance-N utritiona l Products cyanocobala min (vit B-12) 1,000 mcg tablet 04-21 00:00: 00 12-21 23:59 :00 No [id number] 1 tablet DAILY 1 tablet DAILY (route: oral) Med Classific ation: Electroly te Balance-N utritiona l Products fluticasone propionate 50 mcg/actuati on nasal spray,suspe nsion 04-21 00:00: 00 12-21 23:59 :00 No [id number] 1 spray 2 TIMES DAILY 1 spray 2 TIMES DAILY (route: nasal) Med Classific ation: Respirato ry Therapy Agents melatonin 1 mg tablet 04-21 00:00: 00 12-21 23:59 :00 No [id number] 2 tablet BEDTIME 2 tablet BEDTIME (route: oral) Med Classific ation: Central Nervous System Agents metolazone 2.5 mg tablet 04-21 00:00: 00 12-21 23:59 :00 No [id number] 0.5 tablet DAILY 0.5 tablet DAILY (route: oral) Med Classific ation: Cardiovas cular Therapy Agents Miralax 17 gram oral powder packet 04-21 00:00: 00 12-21 23:59 :00 No [id number] 17 g DAILY 17 g DAILY (route: oral) Med Classific ation: Gastroint estinal Therapy Agents Myrbetriq 50 mg tablet,exte nded release 04-21 00:00: 00 12-21 23:59 :00 No [id number] 1 tablet DAILY 1 tablet DAILY (route: oral) Med Classific ation: Genitouri nary Therapy nitroglycer in 0.4 mg sublingual tablet 04-21 00:00: 00 12-21 23:59 :00 No [id number] 1-3 tablet DAILY 1-3 tablet DAILY (route: sublingual ) Med Classific ation: Cardiovas cular Therapy Agents ondansetron HCl 4 mg tablet 04-21 00:00: 00 12-21 23:59 :00 No [id number] 1 tablet DAILY 1 tablet DAILY (route: oral) Med Classific ation: Gastroint estinal Therapy Agents pantoprazol e 40 mg tablet,beto yed release 04-21 00:00: 00 12-21 23:59 :00 No [id number] 1 tablet DAILY 1 tablet DAILY (route: oral) Med Classific ation: Gastroint estinal Therapy Agents Senna with Docusate Sodium 8.6 mg-50 mg tablet 04-21 00:00: 00 12-21 23:59 :00 No [id number] 1 tablet 2 TIMES DAILY 1 tablet 2 TIMES DAILY (route: oral) Med Classific ation: Gastroint estinal Therapy Agents spironolact one 25 mg tablet 04-21 00:00: 00 04-23 23:59 :00 No [id number] 1 tablet DAILY 1 tablet DAILY (route: oral) Med Classific ation: Cardiovas cular Therapy Agents Ventolin HFA 90 mcg/actuati on aerosol inhaler 04-21 00:00: 00 12-21 23:59 :00 No [id number] 2 puff EVERY 6 HOURS 2 puff EVERY 6 HOURS (route: inhalation ) Med Classific ation: Respirato ry Therapy Agents spironolact one 50 mg tablet 04-23 00:00: 00 12-21 23:59 :00 No [id number] 1 tablet DAILY 1 tablet DAILY (route: oral) Med Classific ation: Cardiovas cular Therapy Agents torsemide 20 mg tablet 04-23 00:00: 00 12-21 23:59 :00 No [id number] 2 tablet 2 TIMES DAILY 2 tablet 2 TIMES DAILY (route: oral) Med Classific ation: Cardiovas cular Therapy Agents albuterol sulfate HFA 90 mcg/actuati on aerosol inhaler 2023-03 00:00: 00 Yes [id number] 2 puff EVERY 6 HOURS 2 puff EVERY 6 HOURS (route: inhalation ) Med Classific ation: Respirato ry Therapy Agents allopurinol 100 mg tablet 2023-03 00:00: 00 Yes [id number] 0.5 tablet DAILY 0.5 tablet DAILY (route: oral) Med Classific ation: Gout and Hyperuric emia Therapy atorvastati n 80 mg tablet 2023-03 0 00:00: 00 Yes [id number] 1 tablet BEDTIME 1 tablet BEDTIME (route: oral) Med Classific ation: Cardiovas cular Therapy Agents calcitriol 0.25 mcg capsule 2023-03 00:00: 00 Yes [id number] 1 capsule DAILY 1 capsule DAILY (route: oral) Med Classific ation: Electroly te Balance-N utritiona l Products Colace 100 mg capsule 2023-03 0 00:00: 00 Yes [id number] 1 capsule DAILY 1 capsule DAILY (route: oral) Med Classific ation: Gastroint estinal Therapy Agents doxycycline hyclate 100 mg tablet 2023-03 0 00:00: 00 01-04 23:59 :00 No [id number] 1 tablet 2 TIMES DAILY 1 tablet 2 TIMES DAILY (route: oral) Med Classific ation: Anti-Infe ctive Agents Flonase Allergy Relief 50 mcg/actuati on nasal spray,suspe nsion 2023-03 0-04 00:00: 00 Yes [id number] 1 spray DAILY 1 spray DAILY (route: nasal) Med Classific ation: Respirato ry Therapy Agents Vitamin D2 1,250 mcg (50,000 unit) capsule 2023-03 0-04 00:00: 00 Yes [id number] 1 capsule WEEKLY 1 capsule WEEKLY (route: oral) Med Classific ation: Electroly te Balance-N utritiona l Products Tylenol 8 Hour 650 mg tablet,exte nded release 2023-03 0-16 00:00: 00 Yes [id number] 1 tablet NEEDED 1 tablet NEEDED (route: oral) Med Classific ation: Analgesic , Anti-infl ammatory or Antipyret ic melatonin 3 mg capsule 2023-03 0-15 00:00: 00 Yes [id number] 2 capsule BEDTIME 2 capsule BEDTIME (route: oral) Med Classific ation: Central Nervous System Agents betamethaso ne valerate 0.1 % topical cream 2023-03 1- 00:00: 00 Yes [id number] Per instruc tions DIRECTED Per instructio ns DIRECTED (route: topical) Med Classific ation: Dermatolo gical amoxicillin 875 mg-potassiu m clavulanate 125 mg tablet 1-16 00:00: 00 04-16 23:59 :00 No [id number] 1 tablet EVERY 12 HOURS 1 tablet EVERY 12 HOURS (route: oral) Med Classific ation: Anti-Infe ctive Agents doxycycline monohydrate 100 mg capsule 2- 00:00: 00 04-22 23:59 :00 No [id number] 1 capsule EVERY 12 HOURS 1 capsule EVERY 12 HOURS (route: oral) Med Classific ation: Anti-Infe ctive Agents prednisone 20 mg tablet 2- 00:00: 00 04-24 23:59 :00 No [id number] Per instruc tions DAILY Per instructio ns DAILY (route: oral) Med Classific ation: Endocrine albuterol sulfate HFA 90 mcg/actuati on aerosol inhaler 2-13 00:00: 00 Yes [id number] 1 puff EVERY 4 HOURS 1 puff EVERY 4 HOURS (route: inhalation ) Med Classific ation: Respirato ry Therapy Agents Guaiasorb DM 10 mg-100 mg/5 mL oral liquid 05-06 00:00: 00 Yes [id number] 10 mL DAILY 10 mL DAILY (route: oral) Med Classific ation: Respirato ry Therapy Agents Tamiflu 75 mg capsule 2- 00:00: 00 05-08 23:59 :00 No [id number] 1 capsule DAILY 1 capsule DAILY (route: oral) Med Classific ation: Anti-Infe ctive Agents torsemide 20 mg tablet 07-04 00:00: 00 Yes [id number] 2 tablet 2 TIMES DAILY 2 tablet 2 TIMES DAILY (route: oral) Med Classific ation: Cardiovas cular Therapy Agents Immunizations Ordered Immunization Name Filled Immunization Name Date Status Comments Refusal Reason COVID BOOSTER, COVID BOOSTER 2023-12-22 00:00:00 INFLUENZA, TIV (INACTIVATED) 2023-12-22 00:00:00 COVID-19, COVID-19 2023-12-16 00:00:00 INFLUENZA, TIV (INACTIVATED) 2023-12-16 00:00:00 Vital Signs Vital Name Observation Time Observation Value Commen ts Temperature 2024-07-04 10:42:00.000 97 [degF] Temperature 2024-06-26 10:06:00.000 98.8 [degF] Pulse 2024-07-04 10:42:00.000 64 /min Pulse 2024-06-26 10:06:00.000 68 /min O2 Saturation (%) 2024-06-26 10:06:00.000 93 % Respirations 2024-07-04 10:42:00.000 18 /min Respirations 2024-06-26 10:06:00.000 12 /min Weight (lbs) 2024-07-04 10:42:00.000 163 [lb_av] Weight (lbs) 2024-06-26 10:11:00.000 164 [lb_av] Systolic Blood Pressure 2024-07-04 10:42:00.000 110 mm [Hg] Systolic Blood Pressure 2024-06-26 10:06:00.000 104 mm [Hg] Diastolic Blood Pressure 2024-07-04 10:42:00.000 64 mm [Hg] Diastolic Blood Pressure 2024-06-26 10:06:00.000 67 mm [Hg] Plan of Treatment Planned Activity [...] HEALTH.] Future Scheduled Test SKILLED NU RSE FOR O/A, TEACHING, AND MANAGEMENT OF HTN, CAD, HLD, ISCHEMIC CARDIOMYOPATHY. [code = SKILLED NURSE FOR O/A, TEACHING, AND MANAGEMENT OF HTN, CAD, HLD, ISCHEMIC CARDIOMYOPATHY.] Future Scheduled Test SKILLED NU RSE FOR O/A, TEACHING AND MANAGEMENT OF CKD FOR EARLY IDENTIFICATION OF EXACERBATION OF DISEASE PROCESS [code = SKILLED NURSE FOR O/A, TEACHING AND MANAGEMENT OF CKD FOR EARLY IDENTIFICATION OF EXACERBATION OF DISEASE PROCESS] Future Scheduled Test SKILLED NU RSE TO PERFORM AND RECORD BLOOD SUGAR READING DURING VISITS AND PRN FOR SIGNS AND SYMPTOMS OF HYPO/HYPERGLYCEMIA. [code = SKILLED NURSE TO PERFORM AND RECORD BLOOD SUGAR READING DURING VISITS AND PRN FOR SIGNS AND SYMPTOMS OF HYPO/HYPERGLYCEMIA.] Future Scheduled Test SKILLED NU RSE TO INSTRUCT PATIENT/CAREGIVER ON SIGNS AND SYMPTOMS, RISK FACTORS, COMPLICATIONS, AND MANAGEMENT OF ATRIAL FIBRILLATION. [code = SKILLED NURSE TO INSTRUCT PATIENT/CAREGIVER ON SIGNS AND SYMPTOMS, RISK FACTORS, COMPLICATIONS, AND MANAGEMENT OF ATRIAL FIBRILLATION.] Future Scheduled Test SKILLED NU RSE FOR O/A AND SKILLED TEACHING RELATED TO ALTERED SKIN INTEGRITY DRY SKIN [code = SKILLED NURSE FOR O/A AND SKILLED TEACHING RELATED TO ALTERED SKIN INTEGRITY DRY SKIN] Future Scheduled Test SKILLED NU RSE FOR [...] OR TRAINED PATIENT/CAREGIVER TO OBTAIN MEASUREMENT OF CALVES IN CM DAILY AND REPORT AN INCREASE OF 2 CM TO PHYSICIAN/PROVIDER. [code = SKILLED NURSE [...] OR TRAINED PATIENT/CAREGIVER TO OBTAIN MEASUREMENT OF CALVES IN CM DAILY AND REPORT AN INCREASE OF 2 CM TO PHYSICIAN/PROVIDER.] Future Scheduled Test SKILLED [...] AND SYMPTOMS AND MANAGEMENT OF OA, OSTEOPOROSIS, LUMBAR REGION DISC DEGENERATION, GOUT. [code = SKILLED NURSE FOR O/A AND SKILLED TEACHING RELATED TO SIGNS AND SYMPTOMS AND MANAGEMENT OF OA, OSTEOPOROSIS, LUMBAR REGION DISC DEGENERATION, GOUT.] Future Scheduled Test PATIENT NDIAYE S [...] MAINTAIN SITUATIONAL AWARENESS AND WILL NOTIFY CLINICAL MANUFACTURING QUALITY TECHNICIAN AND PHYSICIAN/PROVIDER WITH ANY CHANGE IN CONDITION. [code = SKILLED NURSE TO PERFORM ENVIRONMENTAL SAFETY RISK ASSESSMENT AND FALL RISK ASSESSMENT AND PROVIDE INSTRUCTION TO IMPLEMENT ENVIRONMENTAL SAFETY AND FALL PREVENTION STRATEGIES THROUGHOUT THE CERTIFICATION PERIOD. SKILLED NURSE WILL MAINTAIN SITUATIONAL AWARENESS AND WILL NOTIFY CLINICAL MANUFACTURING QUALITY TECHNICIAN AND PHYSICIAN/PROVIDER WITH ANY CHANGE IN [...] PATIENT/CAREGIVER ON MEASURES TO PREVENT PRESSURE ULCERS.] Future Scheduled Test SKILLED NU RSE TO REVIEW PATIENT MEDICATIONS (PRESCRIPTION/OTC). INSTRUCT PATIENT/CAREGIVER ON ALL MEDICATIONS INCLUDING PURPOSE, WHEN TO TAKE, IMPORTANCE OF MEDICATION ADHERENCE, MONITORING OF EFFECTIVENESS, ADVERSE DRUG REACTIONS, POSSIBLE SIDE EFFECTS, AND WHEN TO NOTIFY AGENCY OR PHYSICIAN/PROVIDER OF ANY CONCERNS. [code = SKILLED NURSE TO REVIEW PATIENT MEDICATIONS (PRESCRIPTION/OTC). INSTRUCT PATIENT/CAREGIVER ON ALL MEDICATIONS INCLUDING PURPOSE, WHEN TO TAKE, IMPORTANCE OF MEDICATION ADHERENCE, MONITORING OF EFFECTIVENESS, ADVERSE DRUG REACTIONS, POSSIBLE SIDE EFFECTS, AND WHEN TO NOTIFY AGENCY OR PHYSICIAN/PROVIDER OF ANY CONCERNS.] Goal 2024-02-18 Patient Goal - G ET RID OF WALKER AND HEAL MY WOUND Goal 2024-04-20 Patient Goal - HEAL MY WOUND Goal 2024-05-08 Patient Goal - HEAL MY WOUND Goal Patient Goal - W OUND TO CONTINUE TO HEAL AND GET STRONGER Goal 2024-06-20 Patient Goal - H EAL MY WOUND AND GET STRONGER Goal Provider Goal - A PLAN OF CARE WILL BE ESTABLISHED THAT MEETS PATIENT'S CORRECTION NEEDS AND INCLUDES PATIENT GOAL FOR HOME HEALTH. Goal Provider Goal - PATIENT/CAREGIVER WILL VERBALIZE/DEMONSTRATE [...] OF TEACHING RELATED TO ALTERED SKIN INTEGRITY DRY SKIN BY END OF CERTIFICATION PERIOD. Goal Provider [...] ULCER PREVENTION BY END OF THE EPISODE. Goal Provider Goal - PATIENT/CAREGIVER WILL VERBALIZE UNDERSTANDING OF EDUCATION PROVIDED ON MEDICATIONS BY THE END OF THE CERTIFICATION PERIOD. Progress Notes Progress Notes <paragraph>[Visit Date: 2024 by ERICK STAFFORD RN]:</paragraph><paragraph>SNV ABNORMAL VITALS: WNL FALLS:N PHYSICAL ASSESSMENT FINDINGS: PT AWAKE AND ALERT VSS AFEBRILE LUNGS CLEAR SPEAKING IN FULL SENTENCES NAD NOTED ABD SNT POS BS DENIES PROBLEMS WITH BOWEL OR BLADDER APPETITE GOOD LE NON PITTING EDEMA COMPRESSION WITH TUBIDPBPGRIP ELEVATION ENCOURAGED. PT AMBULATES WITH ROLLING WALKER SLOW STEADY GAIT. MEDICATION CHANGES: MEDICATION REGIME REVIEWED HANDS ON CARE: ASSESSMENT TEACHING TEACHING PROVIDED: MEDICATION LOW SODIUM DIET CHOICES ELEVATION COMPRESSION OF LE PATIENT/CAREGIVER TEACH BACK:VERBALIZED UNDERSTANDING NEXT APPOINTMENT: INTEGRITY CONSULTANT NEW ORDERS: DC INSTRUCTED PATIENT AND CAREGIVER TO CALL [facility] WITH ANY QUESTIONS OR CHANGES IN CONDITION</paragraph> Encounters Start Date/Time End Date/Time Encounter Type Admission Type Attending Clinicians Care Facility Care Department Encounter ID Discharge Date Discharge Status Discharge Condition Discharge Reason Percent Goals Met 2023-12-24 00:00:00 2024-08-19 00:00:00 Outpatient RECERTIFIC ATION KALEB OLIVERA [facility] [id number]
--- OUTSIDE RECORDS SUMMARY | 2024-07-07 15:32 | XMS_ITS | Data Portability ---
Author Organization [facility], Main Office Address [address] [facility], [address] [place] [address] Care Team Providers Care Industrial Order Clerk Name Role Phone RORY TARANGO 1ST FLOOR [...] Address Organization Details Recorded Time Hyperlipid emia 16941426 Active 2019 LORNA SAUCEDO NP [address] [facility], [address], [place], [address] , [facility] 0 08:12:22 Acute urinary tract infection 645232281 Active 2019 LORNA SAUCEDO NP [address] [facility], [address], [place], [address] , [facility] 0 08:12:35 Gout 01319431 Active 2019 LORNA SAUCEDO NP [address] [facility], [address], [place], [address] , [facility] 0 08:21:44 Acute-on-c hronic renal failure 228582310 Active 2019 Inge Rodríguez MD [address] [facility], [address], [place], [address] , [facility] 0 00:35:34 Overactive urinary bladder 837339868 Active 2020 Inge Rodríguez MD [address] [facility], [address], [place], [address] , [facility] 1 00:36:36 Total knee replacemen t Active 2020 LORNA SAUCEDO NP [address], [address], [place], [address] , [facility] 1 09:22:16 Pain in left knee Active 2020 LORNA SAUCEDO NP [address] [facility], [address], [place], [address] , [facility] 1 09:22:52 Constipati on 52722671 Active 2020 Inge Rodríguez MD [address], [place], [address] , [facility] 1 16:36:30 Degenerati ve joint disease involving multiple joints 471349166 Active 2020 Inge Rodríguez MD [address] [facility], [address], [place], [address] , [facility] 1 23:37:24 Surgical incision wound of skin 272113557465 Active 2020 right knee LORNA SAUCEDO NP [address] [facility], [address], [place], [address] , [facility] 1 08:57:59 Pain in right knee Active 2020 LORNA SAUCEDO NP [address] [facility], [address], [place], [address] , [facility] 1 11:38:33 Chronic kidney disease stage 3A 807956955 Active 2020 Inge Rodríguez MD [address] [facility], [address], [place], [address] , [facility] 1 01:37:03 Cholecysti tis 21989178 Active 2019 Marcelina alonzo [facility] 0 13:27:09 Type 2 diabetes mellitus without complicati on 029035632 Active 2019 Marcelina alonzo [place] [facility] 0 13:27:09 Essential hypertensi on 00068195 Active 2019 Marcelina alonzo, [facility] 0 13:27:10 Coronary arterioscl erosis 48489250 Active 2019 Marcelina alonzo, [facility] 0 13:27:12 Chronic atrial fibrillati on 803551502 Active 2019 Marcelina alonzo, [facility] 0 13:27:18 Gastroesop hageal reflux disease without esophagiti s 966040469 Active 2019 Marcelina alonzo, [facility] 0 13:27:20 Disorder of urinary bladder 05216765 Active 2019 Marcelina alonzo, [facility] 0 13:30:10 History of deep vein thrombosis 246966073 Active 2019 Marcelina alonzo, [facility] 0 14:51:52 Congestive heart failure 71070984 Active 2019 Marcelina alonzo, [facility] 0 14:51:55 Renal mass 532105870 Active 2019 Marcelina alonzo, [facility] 0 14:52:00 Asthenia 30499852 Active 2019 Marcelina alonzo, [facility] 0 14:52:02 Problem Notes None recorded. Medical Equipment None Reported. Allergies Allergen ID Allergen Name Allergen Category Reaction Reaction Severity Criticality Documentation Date Start Date Code Code System Note Provider Name and Address Organization Details Recorded Time 51879 lisinopri l medicatio n Not available Not available Not available 04/04/2019 96521 RxNorm Not Available Not Available Not Available 97721 Dilaudid medicatio n Not available Not available Not available 01/07/2021 41279 3 RxNorm Not Available Not Available Not [...] mm[Hg] 57 mm[Hg] LORNA SAUCEDO NP [address] [facility], [address], [place], [address], [facility] 11:30:38 Date Recorded Body height Heart rate Respiratory rate Body temperature Oxygen saturation Oxygen saturation in Arterial blood by Pulse oximetry Systolic blood pressure Diastolic blood pressure Provider Name and Address Organization Details Last Updated DateTime 162.56 cm 71 /min 20 /min 97.6 [degF] 96 % 96 % 113 mm[Hg] 61 mm[Hg] LORNA SAUCEDO NP [address] [facility], [address], [place], [address], [facility] 08:38:54 Date Recorded Body height Body mass index (BMI) Body weight Heart rate Respiratory rate Body temperature Oxygen saturation Oxygen saturation in Arterial blood by Pulse oximetry Systolic blood pressure Diastolic blood pressure Provider Name and Address Organization Details Last Updated DateTime 162.56 cm 26.2 kg/m2 98475.4 8 g 70 /min 16 /min 97 [degF] 96 % 96 % 112 mm[Hg] 61 mm[Hg] Inge Rodríguez MD [address] [facility], [address], [place], [address], [facility] 16:25:57 Date Recorded Body height Heart rate Respiratory rate Body temperature Oxygen saturation Oxygen saturation in Arterial blood by Pulse oximetry Systolic blood pressure Diastolic blood pressure Provider Name and Address Organization Details Last Updated DateTime 162.56 cm 70 /min 16 /min 97 [degF] 96 % 96 % 112 mm[Hg] 61 mm[Hg] LORNA SAUCEDO NP [address] [facility], [address], [place], [address], [facility] 1 12:16:58 Date Recorded Body height Heart rate Respiratory rate Body temperature Oxygen saturation Oxygen saturation in Arterial blood by Pulse oximetry Systolic blood pressure Diastolic blood pressure Provider Name and Address Organization Details Last Updated DateTime 162.56 cm 91 /min 18 /min 97 [degF] 97 % 97 % 108 mm[Hg] 61 mm[Hg] LORNA SAUCEDO NP [address] [facility], [address], [place], [address], [place] [facility] 1 11:04:33 Social History Question Answer Notes LastModified by Organizat ion Details LastModified Time Tobacco Smoking Status Former Smoker quit 2013 Not Available [facility] 01/16/2020 03:13:20 Do You Have An Advance Directive? Yes CPR-hospital Ok, No Dialysis , Ok For Iv. Hydration, Art Nut. Information not available 01/07/2021 What Is Your Level Of Alcohol Consumption? Occasional [id number] Information not available 01/16/2020 How Much Tobacco Do You Chew? None [id number] Information not available 01/16/2020 What Is Your Code Status? DNI Information not available 01/07/2021 Do You Or Have You Ever Used E-cigarettes Or Vape? Never Used Electronic Cigarettes [id number] Information not available 01/16/2020 Legal Guardian? No Information not available 12/16/2020 Do You Have A Medical Power Of Mine Surveyor? Yes Has One, Need To Obtain Information not available 12/16/2020 What Was The Date Of Your Most Recent Tobacco Screening? 12/12/2019 [id number] Information not available 01/16/2020 Do You Or Have You Ever Used Smokeless Tobacco? Never Used Smokeless Tobacco [id number] Information not available 01/16/2020 Has Tobacco Cessation Counseling Been Provided? No N/a As Pt. No Longer Smokes Information not available 12/16/2020 How Many Years Have You Smoked Tobacco? 50 [id number] Information not available 01/16/2020 Do You Or [...] mcg/0.3 mL dose 1 completed Julieth alonzo, [facility] 02/19/2021 13:36:20 Influenza, high-dose, quadrivalent, PF 1 completed [facility] 03/19/2021 09:32:37 Influenza, split virus, quadrivalent, preservative 0 completed [facility] 01/12/2020 10:17:01 Pneumococcal conjugate PCV 13 5 completed [facility], [facility] 08/12/2020 09:42:53 pneumococcal polysaccharide PPV23 4 completed [facility], [facility] 08/12/2020 09:43:04 Tdap 4 completed [facility] 08/12/2020 09:43:14 Past Encounters Encounter ID Performer Location Encounter Start Date Encounter Closed Date Diagnosis/Indication Diagnosis SNOMED-CT Code Diagnosis ICD10 Code Diagnosis Note [id number] Marcelina [address] [address] [place] [address] 04/04/2019 13:17:17 04/04/2019 14:15:53 Cholecystitis 67247927 K80.10 recs for no surgical interventi on abd pain resolved on DC from acute care Pt without abd pain today continued on augmentin bid - no stop date- will call acute care and see if there was a stop date planned. WBC wnl monitor for pain mgmt 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 583102155 E11.9 diet controlled , not on meds for this accucheck prn Essential hypertension 51485814 I10 lasix 20mg on mon, wed, fri ADD per cards- metoprolol XL 50mg qd (hold for SBP<100), spironolac tone 12.5mg bid, and entresto 49/51mg bid (to change down to 24/26mg bid dose for consistent SBP<100) pt had been imdur in the past but cards does not want to restart this. monitor bp, labs Coronary arteriosclerosis 37932370 I25.10 atorvastat in 80mg qd metoprolol XL 50mg qd nitroglyce rin SL tab q5min for 3 doses monitor lfts prn Chronic at rial fibrillation 336622737 I48.21 on coumadin digoxin 0.125 qd on mon, wed, fri pt also on lovenox for DVT, see above metoprolol XL 50mg qd monitor for rate control, titrate coumadin prn Gastroesop hageal reflux disease without esophagitis 955667725 K21.9 pantoprazo le 40mg qd monitor for sx Disorder o f urinary bladder 66164048 N32.81 myrbetriq 50mg ER qd monitor for sx Renal mass 207998050 N28 .89 right sided is followed by nephrologi st no plan for interventi on at this time for this however CT in acute care finding of new left sided renal mass- to f/u with nephrologi st for this. History of deep vein thrombosis 255962084 Z86.718 ? DVT in acute care Pt has ordered lovenox and coumadin will continue AC therapy for now and request documentat ion from acute care regarding this US to RUE today stat monitor Asthenia 11021683 R53.1 PT/OT to eval and treat monitor for fall risk Congestive heart failure 11183009 I50.22 lasix 20mg on mon, wed, fri ADD per cards- metoprolol XL 50mg qd (hold for SBP<100), spironolac tone 12.5mg bid, and entresto 49/51mg bid (to change down to 24/26mg bid dose for consistent SBP<100) f/u with cards monitor resp status, fluid status, daily weights [id number] [address] 04/06/2019 14:48:45 04/12/2019 14:33:13 History of deep vein thrombosis 158623066 Z86.718 DVT to the RUE in acute care pt on lovenox - coumadin bridge to DC lovenox when coumadin is in therapeuti c range monitor Essential hypertension 94568387 I10 lasix 20mg on mon, wed, fri [...] continue to monitor Chronic at rial fibrillation 065213759 I48.21 on coumadin digoxin 0.125 qd on mon, wed, fri metoprolol XL 50mg qd monitor for rate control, titrate coumadin prn Osteoarthr itis of left knee joint 1755900019 20437 M17.12 pt getting lidocaine patch, apap 650mg prn, muscle rub she also sees specialist outpt and gets injections . will DC prn apap and schedule 1,000mg tid monitor for effect continue with PT/OT to maximize function as tolerated. [id number] Marcelina [place] [address] [address] [place], [place] [address] 04/07/2019 13:58:39 04/12/2019 14:36:15 Osteoarthritis of left knee joint 9796453052 80045 M17.12 pt getting lidocaine patch to bilat knees, muscle rub started on apap 1,000mg tid yesterday with little effect, will change to prn start tramadol 25mg bid prn Pt sees specialist - will order a consult monitor for pain mgmt continue with PT/OT to maximize function as tolerated. History of deep vein thrombosis 231347708 Z86.718 DVT to the RUE in acute care pt on lovenox - coumadin bridge coumadin in therapeuti c range today, will DC lovenox. continue coumadin and titrate prn monitor Chronic at rial fibrillation 975947048 I48.21 on coumadin digoxin 0.125 qd on mon, wed, fri metoprolol XL 50mg qd monitor for rate control, titrate coumadin prn Essential hypertension 84417047 I10 stable lasix 20mg on mon, wed, fri metoprolol XL 50mg qd (hold for SBP<100), spironolac tone 12.5mg bid entresto 49/51mg bid (to change down to 24/26mg bid dose for consistent SBP<100) monitor bp, labs Cholecystitis 90314348 K 80.10 recs for no surgical interventi on abd pain resolved on DC from acute care Pt without abd pain today continued on augmentin bid - no stop date- will call acute care and see if there was a stop date planned. WBC wnl monitor for pain mgmt Congestive heart failure 35157862 I50.22 lasix 20mg on mon, wed, fri metoprolol XL 50mg qd (hold for SBP<100), spironolac tone 12.5mg bid f/u with cards monitor resp status, fluid status, daily weights Coronary arteriosclerosis 64488887 I25.10 atorvastat in 80mg qd metoprolol XL 50mg qd nitroglyce rin SL tab q5min for 3 doses monitor lfts prn Gastroesop hageal reflux disease without esophagitis 174715451 K21.9 [place]opraz[place] 40[place] [id number] Mohsen Collins MD [address] [address] 04/10/2019 11:20:58 04/12/2019 14:47:48 Acute cholecystitis 95692732 K81.0 see HPIconserv ative management monitor sxrefer back to surger for change in condition Asthenia 89492965 R53.1 PT OT eval and treatmonit or fall riskwas ambulating with walker prior Chronic at rial fibrillation 363667144 I48.21 monitor and adjust coumadinmo nitor for rate control Congestive heart failure 64153368 I50.22 monitor respirator y function and fluid statusfoll ow weightstit rate meds prn Gastroesop hageal reflux disease without esophagitis 464474238 K21.9 stable on PPImonitor for sx control Essential hypertension 52868889 I10 monitor and titrate current medsfollow ed by gertrude gardner with concerns [id number] [address]ina Ponce [address] [address] 04/11/2019 13:13:45 04/18/2019 08:34:20 Acute cholecystitis 90338157 K81.0 see HPIconserv ative management monitor sxrefer back to surger for change in condition Asthenia 09919798 R53.1 PT OT eval and treatmonit or fall riskwas ambulating with walker prior Chronic at rial fibrillation 083903584 I48.21 monitor and adjust coumadinmo nitor for rate control Osteoarthr itis of left knee joint 6301352875 10142 M17.12 pt getting lidocaine patch to bilat knees, muscle rub D/C tramadol today- believe this may be causing increased confusion/ lethargy continue apap 1,000mg tid prn awaiting f/u with ortho, ?need for steroidal injections monitor for pain mgmt continue with PT/OT to maximize function as tolerated. History of deep vein thrombosis 874889727 Z86.718 DVT to the RUE in acute care swelling has improved lovenox now DCd, pt remains on coumadin continue coumadin and titrate prn monitor Essential hypertension 52913826 I10 stable lasix 20mg on wed, wed, wed metoprolol XL 50mg qd (hold for SBP<100), spironolac tone 12.5mg bid entresto 49/51mg bid (to change down to 24/26mg bid dose for consistent SBP<100) monitor bp, labs Pain in left arm 0018713 00 M79.602 see HPI pain to left [...] DC of tramadol. monitor Congestive heart failure 64686397 I50.22 lasix 20mg on wed, wed, wed metoprolol XL 50mg qd (hold for SBP<100), spironolac tone 12.5mg bid f/u with cards monitor resp status, fluid status, daily weights [id number] JORDON MENENDEZ [address] [place] [address] 12/08/2019 08:07:07 12/11/2019 16:45:18 Chronic atrial fibrillation 504789903 I48.20 lasix 40 mg daily metoprolol er 50 mg hs Congestive heart failure 05822076 I50.9 lasix 40 mg daily monitor resp status Essential hypertension 02362806 I10 metoprolol 50 mg hs monitor bp Hyperlipidemia 29599868 E78.5 lipitor 80 mg daily Acute urin polina tract infection 287955534 N39.0 cefuroxime 250 mg bid to 12/11 Gout 60138314 M10.9 predisone taper norco 5/325 q4hr prn diclofenac 1% to knees [id number] Inge Rodríguez MD [address] [address] 12/12/2019 18:51:23 12/18/2019 10:30:51 Chronic atrial fibrillation 143492202 I48.21 Rate in good control on metoprolol as above. Not on AC Monitor HR Congestive heart failure 93936625 I50.22 I25.5 Z95.810 Pt. feels back to baseline. Continue lasix 40 mg qd and metoprolol 50 mg qd. Very deconditio ellis, needs PT/OT for strengthen ing and function. Monitor resp. status, fluid status, wts and labs. Essential hypertension 49389802 I10 In good control on meds as above. Monitor BP and labs Hyperlipidemia 67166270 E78.49 Continue atorvastat in 80 mg qd. Monitor labs as outpt. Acute urin polina tract infection 338361577 N30.00 Completes course of cefuroxime 250 mg BID today. Monitor for recurrence . Gout 21600379 M10.072 Doing well. Continue prednisone taper, to complete 12/17 Pain much improved, will decrease hydrocodon e/APAP 5/325 to q 6 hrs prn. Contine diclofenac 1% to knees and lidocaine patch. Monitor sxs. Acute-on-c hronic renal failure 516773782 N17.8 N18.2 BUN/cr in 07/2019 was 27/1.2, so sig worse than baseline still. Continue to avoid nephrotoxi c meds. Monitor labs. Renal consult. [id number] JORDON MENENDEZ [address] [place] [address] 12/13/2019 09:32:51 12/15/2019 09:06:00 Congestive heart failure 58035879 I50.9 lasix 40 mg daily monitor resp status Gout 07923940 M10.9 predisone taper to 12/17 norco 5/325 q4hr prn diclofenac 1% to knees 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 297141009 E11.9 diet controlled , not on meds for this accucheck prn [id number] JORDON MENENDEZ [address] [place] [address] 12/18/2019 09:46:04 12/21/2019 15:26:11 Congestive heart failure 43725771 I50.9 lasix 40 mg daily monitor resp status Essential hypertension 86500416 I10 metoprolol 50 mg hs monitor bp 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 681236912 E11.9 diet controlled , not on meds for this accucheck prn [id number] LORNAJr SAUCEDO NP RORY TARANGO [address] [place] [address] 12/25/2019 10:13:38 12/27/2019 10:05:24 Gout 75409595 M10.9 predisone taper 20 mg daily ax4 days, then 10 mg daily x4 days norco 5/325 q4hr prn diclofenac 1% to knees Asthenia 72668510 R53.1 PT OT eval and treat monitor fall risk was ambulating with walker prior [id number] LORNA SAUCEDO NP [address] [address] 01/01/2020 12:24:46 01/04/2020 12:53:43 Gout 30116317 M10.9 predisone taper 20 mg daily ax4 days, then 10 mg daily x4 days norco 5/325 q4hr prn diclofenac 1% to knees Asthenia 01265692 R53.1 PT OT eval and treat monitor fall risk was ambulating with walker prior [id number] LORNA SAUCEDO NP [address] [address] 01/05/2020 08:36:09 01/08/2020 13:24:34 Qibnm-gi-fmnqink renal failure 415450759 N18.9 monitor labs Asthenia 34383750 R53.1 PT OT eval and treat monitor fall risk was ambulating with walker prior Chronic at rial fibrillation 826205583 I48.20 lasix 40 mg daily metoprolol er 50 mg hs Congestive heart failure 72680605 I50.9 lasix 40 mg daily monitor resp status Coronary arteriosclerosis 70009115 I25.10 monitor for any symptoms Essential hypertension 88610368 I10 metoprolol 50 mg hs monitor bp Gastroesop hageal reflux disease without esophagitis 704763963 K21.9 monitor for symptoms Gout 66090010 M10.9 norco 5/325 q4hr prn diclofenac 1% to knees Hyperlipidemia 43125768 E78.5 lipitor 80 mg daily 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 928383204 E11.9 diet controlled , not on meds for this accucheck prn [id number] LORNA SAUCEDO NP [address] [address] 04/19/2020 07:49:30 04/23/2020 08:17:38 Chronic atrial fibrillation 225344942 I48.20 lasix 40 mg daily metoprolol er 50 mg hs Congestive heart failure 28488798 I50.9 lasix 40 mg daily monitor resp status Coronary arteriosclerosis 10684788 I25.10 monitor for any symptoms Disorder o f urinary bladder 30712947 N32.9 myrbetriq 50 mg daily Essential hypertension 72106041 I10 metoprolol 50 mg hs monitor bp Gastroesop hageal reflux disease without esophagitis 489743661 K21.9 protonix 40 mg daily Gout 23062887 M10.9 allopurino l 100 mg daily lidocaine patch daily right knee diclofenac 1% to knees 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 850305541 E11.9 diet controlled , not on meds for this accucheck prn Hyperlipidemia 85098479 E78.5 lipitor 80 mg daily [id number] Inge Rodríguez MD [address] [address] 04/22/2020 13:43:45 04/25/2020 11:37:29 Congestive heart failure 39542093 I50.22 I25.5 Z95.810 Appears euvolemic. Continue lasix 40 mg qd and metoprolol 150 mg qd. Monitor resp. status, fluid status, wts and labs. Acute-on-c hronic renal failure 995579585 N17.8 N18.2 At new baseline. Continue to avoid nephrotoxi c meds. Monitor labs. Renal consult prn. Chronic at rial fibrillation 701926278 I48.21 Rate in good control on metoprolol as above. Not on AC Monitor HR Essential hypertension 80535292 I10 In good control on meds as above. Monitor BP and labs Hyperlipidemia 76375980 E78.49 Continue atorvastat in 80 mg qd. Monitor labs as outpt. Gout 05355458 M10.072 No current sxs. Elevated uric acid inpt. Continue allopurino l 100 mg qd. and colchicine prn. Monitor sxs. and recheck uric acid prn. Coronary arteriosclerosis 65892067 I25.10 monitor for any symptoms Gastroesop hageal reflux disease without esophagitis 672484536 K21.9 No current sxs. Continue pantoprazo le 40 mg qd. Monitor for sxs. 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 715062211 E11.9 diet controlled , not on meds for this Check accuchecks prn Bilateral knee pain 1187 284506 1406266 M25.561 M25.562 M15.0 Scheduled for TKR on [...] function. Monitor pain relief. Overactive urinary bladder 114550700 N32.81 Continue myrbetriq 50 mg qd. monitor sxs. [id number] JORDON MENENDEZ [address] [place] [address] 04/29/2020 07:38:33 05/01/2020 11:27:39 Acute urinary tract infection 241373621 N39.0 recovered Acute-on-c hronic renal failure 455842450 N18.9 monitor labs Asthenia 61856986 R53.1 PT OT eval and treat monitor fall risk was ambulating with walker prior Cholecystitis 55770640 K 81.9 recovered Chronic at rial fibrillation 349103756 I48.20 lasix 40 mg daily metoprolol er 50 mg hs Congestive heart failure 89172488 I50.9 lasix 40 mg daily monitor resp status Coronary arteriosclerosis 46190075 I25.10 monitor for any symptoms Disorder o f urinary bladder 85494428 N32.9 myrbetriq 50 mg daily Essential hypertension 73885306 I10 metoprolol 150 mg hs monitor bp Gastroesop hageal reflux disease without esophagitis 730939002 K21.9 protonix 40 mg dailytums q4 hr prn Gout 82191088 M10.9 allopurino l 100 mg daily lidocaine patch daily right knee diclofenac 1% to knees bid cholchecin e 0.6 2-tabs the 0.6 mg qd prn vicodin 5/325 mg q4 hr prn History of deep vein thrombosis 922471047 Z86.718 resolved Hyperlipidemia 71527473 E78.5 lipitor 80 mg daily Overactive urinary bladder 156550143 N32.81 myrbetriq 50 mg qd. monitor sxs. Renal mass 359990600 N28 .89 f/u with nephrologi st 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 005412472 E11.9 diet controlled , not on meds for this accucheck prn [id number] JORDON MENENDEZ [address] [place] [address] [place] [address] 05/31/2020 07:34:55 06/05/2020 10:23:00 Type 2 diabetes mellitus without complication 781933261 E11.9 diet controlled , not on meds for this accucheck prn Renal mass 523936829 N28 .89 f/u with nephrologi st Overactive urinary bladder 913761869 N32.81 myrbetriq 50 mg qd.monitor sxs. Hyperlipidemia 97948822 E78.5 atorvastat in 80 mg daily History of deep vein thrombosis 481426080 Z86.718 xarelto 10 mg daily Gout 22560188 M10.9 allopurino l 100 mg daily lidocaine patch daily right knee diclofenac 1% to knees bid cholchecin e 0.6 2-tabs the 0.6 mg qd prn oxycodone 5 mg q4 hrprn tramadol 50 mg q4 hr prn Gastroesop hageal reflux disease without esophagitis 455160867 K21.9 protonix 40 mg dailytums q4 hr prn Essential hypertension 77087362 I10 metoprolol er 100 mg hs monitor bp Coronary arteriosclerosis 60412690 I25.10 monitor for any symptoms Congestive heart failure 86620523 I50.9 lasix 40 mg daily monitor resp status Chronic at rial fibrillation 247186341 I48.20 lasix 40 mg daily metoprolol er 50 mg hs Pain in left knee 175476 7345 58861 M25.562 oxycodone 5 mg q4 hrprn tramadol 50 mg q4 hr prn [id number] MD RORY Becerril [address] [place] [address] 06/03/2020 13:11:50 06/11/2020 14:52:39 Degenerative joint disease involving multiple joints 624121240 M15.0 Z96.652 S/P TKR on 05/23. Needs [...] Monitor pain relief. Bilateral knee pain 1187 536188 6952655 M25.561 M25.562 M15.0 With continued right knee pain also. Continue PT/OT as above. Monitor pain relief. Congestive heart failure 53618688 I50.22 I25.5 Z95.810 Appears euvolemic. Continue lasix 40 mg qd and metoprolol 100 mg qd. Monitor resp. status, fluid status, wts and labs. Acute-on-c hronic renal failure 541736332 N17.8 N18.2 Stable at new baseline. Continue to avoid nephrotoxi c meds. Monitor labs. Renal consult prn. Chronic at rial fibrillation 781487431 I48.21 Rate in good control on metoprolol 100 mg qd Now on rivaroxaba n for DVT prophylaxi s, may continue long-term for afib. Monitor HR Essential hypertension 90701052 I10 In good control on meds as above. Monitor BP and labs Hyperlipidemia 74226505 E78.49 Continue atorvastat in 80 mg qd. Monitor labs as outpt. Gout 83008998 M10.072 No current sxs., but with elevated uric acid inpt. Continue allopurino l 100 mg qd. and use colchicine prn sxs. Monitor sxs. and recheck uric acid prn. Coronary arteriosclerosis 70343424 I25.10 Continue meds as above. Monitor for any symptoms F/U with cardio as planned. Gastroesop hageal reflux disease without esophagitis 573734424 K21.9 No current sxs. Continue pantoprazo le 40 mg qd. Monitor for sxs. 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 Monitor accuchecks prn Overactive urinary bladder 053720373 N32.81 Continue myrbetriq 50 mg qd. monitor sxs. Constipation 26357635 K5 9.03 No BM since transfer here. Says she doesn't usually have problems at home, so likely due to meds and immobility . Will continue colace 100 mg BID and give dose of MOM tonight and consider other meds if no BM by tomorrow. Monitor bowel function. [id number] LORNA SAUCEDO NP [address] [address] 06/04/2020 08:11:50 06/07/2020 13:33:34 Pain in left knee 9607201810 15084 M25.562 oxycodone 5 mg q4 hrprn tramadol 50 mg q4 hr prnPT OT eval and treat Congestive heart failure 73498934 I50.9 lasix 40 mg daily monitor resp status [id number] LORNA SAUCEDO NP [address] [address] 06/07/2020 11:43:39 06/11/2020 15:04:18 Pain in left knee 4902091523 12477 M25.562 oxycodone 5 mg q4 hr prn tramadol 50 mg q4 hr prn PT OT eval and treat Gastroesop hageal reflux disease without esophagitis 640174304 K21.9 protonix 40 mg dailytums q4 hr prn History of deep vein thrombosis 015347975 Z86.718 xarelto 10 mg daily [id number] LORNA SAUCEDO NP [address] [address] 06/10/2020 15:29:11 06/13/2020 15:30:41 Pain in left knee 5475435314 49376 M25.562 oxycodone 5 mg q4 hr prn, [...] for DVT prophylaxi s. Monitor pain relief [id number] LORNA SAUCEDO NP [address] [address] 5 06/14/2020 12:44:17 06/17/2020 16:30:53 Degenerative joint disease involving multiple joints M15.9 Needs PT/OT for strengthen ing, balance, gait training, safety and function. oxycodone 7.5 mg qAM and 5 mg q 4 hrs prn. APAP 1000 mg TID. tramadol 50 mg q 4 hrs prn rivaroxaba n 10 mg qd for DVT prophylaxi s. Monitor pain relief Pain in left knee 696781 1873 08980 M25.562 oxycodone 5 mg q4 hr prn, 7.5 mg am tramadol 50 mg q4 hr prn PT OT eval and treat [id number] LORNA SAUCEDO NP [address] [address] 5 06/25/2020 08:29:30 06/27/2020 09:37:45 Ifmmv-uv-qdyjszm renal failure 014581398 N18.9 monitor labs Asthenia 22698986 R53.1 PT OT eval and treat monitor fall risk was ambulating with walker prior Cholecystitis 58032213 K 81.9 recovered Chronic at rial fibrillation 447921076 I48.20 lasix 40 mg daily metoprolol er 50 mg hs Congestive heart failure 23675735 I50.9 lasix 40 mg daily monitor resp status Constipation 54594892 K5 9.00 miralax daily Coronary arteriosclerosis 70499991 I25.10 monitor for any symptoms Degenerati ve joint disease involving multiple joints M15.9 Needs PT/OT for strengthen ing, balance, gait training, safety and function. oxycodone 7.5 mg prn. APAP 1000 mg TID. rivaroxaba n 10 mg qd for DVT prophylaxi s. Monitor pain relief Disorder o f urinary bladder 85379823 N32.9 myrbetriq 50 mg daily Essential hypertension 65796445 I10 metoprolol er 100 mg hs monitor bp Gastroesop hageal reflux disease without esophagitis 544142189 K21.9 protonix 40 mg dailytums q4 hr prn Gout 03601370 M10.9 allopurino l 100 mg daily lidocaine patch daily right knee diclofenac 1% to knees bid cholchecin e 0.6 2-tabs the 0.6 mg qd prn oxycodone 7.5 mg q4 hrprn tramadol 50 mg q4 hr prn Hyperlipidemia 92944315 E78.5 atorvastat in 80 mg daily Pain in left knee 242613 8172 21768 M25.562 oxycodone 7.5 mg q4 hr prn tramadol 50 mg q4 hr prn PT OT eval and treat 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 222482238 E11.9 diet controlled , not on meds for this accucheck prn [id number] JORDON MENENDEZ SUKHDEEP [address] [place] [address] [place] [address] 07/02/2020 07:59:13 07/04/2020 13:33:53 Acute urinary tract infection 811395776 N39.0 recovered Acute-on-c hronic renal failure 357965529 N18.9 monitor labs Asthenia 40434778 R53.1 PT OT eval and treat monitor fall risk was ambulating with walker prior Cholecystitis 89835771 K 81.9 recovered Chronic at rial fibrillation 982431380 I48.20 lasix 40 mg daily metoprolol er 100 mg hs Congestive heart failure 14417077 I50.9 lasix 40 mg daily monitor resp status Constipation 63405460 K5 9.00 miralax daily Coronary arteriosclerosis 36130883 I25.10 monitor for any symptoms Degenerati ve joint disease involving multiple joints 686913997 M15.9 Needs PT/OT for strengthen ing, balance, gait training, safety and function. APAP 1000 mg TID. rivaroxaba n 10 mg qd for DVT prophylaxi s. Monitor pain relief Disorder o f urinary bladder 98253457 N32.9 myrbetriq 50 mg daily Essential hypertension 47232792 I10 metoprolol er 100 mg hs monitor bp Gastroesop hageal reflux disease without esophagitis 063191988 K21.9 protonix 40 mg dailytums q4 hr prn Gout 38656377 M10.9 allopurino l 100 mg daily lidocaine patch daily right knee diclofenac 1% to knees bid cholchecin e 0.6 2-tabs the 0.6 mg qd prn History of deep vein thrombosis 404260798 Z86.718 xarelto 10 mg daily Hyperlipidemia 44920517 E78.5 atorvastat in 80 mg daily Overactive urinary bladder 522392134 N32.81 myrbetriq 50 mg qd.monitor sxs. Pain in left knee 987463 0041 88278 M25.562 lidoderm patch daily prn PT OT eval and treat Renal mass 807028272 N28 .89 f/u with nephrologi st 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 101920086 E11.9 diet controlled , not on meds for this accucheck prn [id number] JORDON MENENDEZ [address] [facility] [place] [address] 12/03/2020 08:55:59 12/10/2020 09:17:00 Degenerative joint disease involving multiple joints 775254961 M15.9 Needs PT/OT for strengthen ing, balance, gait training, safety and function tizanadine 2 mg tid tramadol 50-100 mg q6hr prn x 7 days. APAP 650 mg q6hr . rivaroxaba n 10 mg qd for DVT prophylaxi s. Monitor pain relief Surgical i ncision wound of skin 2926138881 00 R23.8 monitor for any signs of infectionf u NEOS 12/10 as planned Acute-on-c hronic renal failure 614936055 N18.9 monitor labs Asthenia 52774576 R53.1 PT OT eval and treat monitor fall risk was ambulating with walker prior Cholecystitis 48063175 K 81.9 recovered Chronic at rial fibrillation 274770569 I48.20 lasix 40 mg am, 20 mg pm, Fri, Sat, Sun metoprolol er 100 mg hs Congestive heart failure 97010824 I50.9 lasix 40 mg am, 20 mg pm, Fri, Sat, Sun monitor resp status Constipation 65719887 K5 9.00 miralax daily prncolace bid Coronary arteriosclerosis 93333515 I25.10 monitor for any symptoms Disorder o f urinary bladder 00738946 N32.9 myrbetriq 50 mg daily Essential hypertension 25417964 I10 metoprolol er 100 mg hs monitor bp Gastroesop hageal reflux disease without esophagitis 025453144 K21.9 protonix 40 mg dailytums q4 hr prn Gout 45537066 M10.9 allopurino l 100 mg daily lidocaine patch daily right knee diclofenac 1% to knees bid prn cholchecin e 0.6 2-tabs qd prn Hyperlipidemia 37340281 E78.5 atorvastat in 80 mg daily Overactive urinary bladder 824490558 N32.81 myrbetriq 50 mg qd.monitor sxs. 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 525112651 E11.9 diet controlled , not on meds for this accucheck prn [id number] JORDON MENENDEZ SUKHDEEP [address] [place] [address] 12/04/2020 11:19:28 12/06/2020 13:53:27 Asthenia 31643775 R53.1 PT OT eval and treat monitor fall risk was ambulating with walker prior Surgical i ncision wound of skin 3149973484 00 R23.8 monitor for any signs of infectionf u NEOS 12/10 as planned Pain in right knee 28857 62666 91311 M25.561 tramadol 50 mg q6hr scheduledt izanadine 4 mg d2zawippqd one 5 g q6hr prnknee immobilize r at night only [id number] JORDON MENENDEZ [address] [address] 12/11/2020 08:21:46 12/13/2020 15:18:13 Pain in right knee 0265461058 54589 M25.561 tramadol 50 mg q6hr scheduledt izanadine 2 mg c8sbevwlit one 5-10 mg q4hr prnknee immobilize r Surgical i ncision wound of skin 1653994704 00 R23.8 monitor for any signs of infectionf /u NEOS 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 Hyperlipidemia 69879554 E78.5 atorvastat in 80 mg daily History of deep vein thrombosis 602828597 Z86.718 xarelto 10 mg daily Gout 10009384 M10.9 allopurino l 100 mg daily lidocaine patch daily right knee diclofenac 1% to knees bid prn cholchecin e 0.6 2-tabs qd prn Gastroesop hageal reflux disease without esophagitis 022678838 K21.9 protonix 40 mg dailytums q4 hr prn Essential hypertension 87714811 I10 metoprolol er 100 mg hs monitor bp Degenerati ve joint disease involving multiple joints 558004435 M15.9 Needs PT/OT for strengthen ing, balance, gait training, safety and function tizanadine 2 mg tid tramadol 50 mg qid -100 mg q6hr prn APAP 650 mg q6hr . rivaroxaba n 10 mg qd for DVT prophylaxi s. Monitor pain relief Coronary arteriosclerosis 28293103 I25.10 monitor for any symptoms Constipation 46673679 K5 9.00 miralax daily prncolace bid Congestive heart failure 39410297 I50.9 lasix 40 mg am monitor resp status Chronic at rial fibrillation 736033645 I48.20 lasix 40 mg am metoprolol er 100 mg hs Asthenia 02775164 R53.1 PT OT eval and treat monitor fall risk was ambulating with walker prior Acute-on-c hronic renal failure 329868118 N18.9 monitor labs [id number] Inge Rod[facility]guez [facility] [address] [place] [address] rd [place] [address] 12/12/2020 16:13:14 12/17/2020 11:12:37 Pain in right knee 5224746688 10225 M25.561 Still with sig. pain, but relieved [...] 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 194234131 E11.9 Diet controlled .Monitor sugars prn. Overactive urinary bladder 643480055 N32.81 Continue myrbetriq 50 mg qd.Monitor urinary function. Hyperlipidemia 98423884 E78.49 Continue atorvastat in 80 mg qd.Monitor labs as outpt. History of deep vein thrombosis 352655951 Z86.718 Currently on Xarelto for DVT prophylaxi s. But not on it terminal superintendent due to hx of GI bleed.Lorna tor for sxs. Gout 23188286 M10.09 Continue allopurino l 100 mg qd and colchicine 0.6 2 tabs qd prn for flares.Mon itro for sxs. Gastroesop hageal reflux disease without esophagitis 574155870 K21.9 No current sxs.Contin ue pantoprazo le 40 mg qd and tums q 4 hrs prnMonitor for sxs. Essential hypertension 47658201 I10 Good control on metoprolol ER 100 mg qd..Monito r BP and labs. Degenerati ve joint disease involving multiple joints 101430546 M15.0 Continue pain meds as above.Lorna tor sxs. Coronary arteriosclerosis 90361934 I25.10 With sig. hx.Continu e metoprolol as above.F/U with cardio as planned. Constipation 82271144 K5 9.09 miralax daily prncolace bid Congestive heart failure 42232173 I50.[address]Appe ars euvolemic. Continue metoprolol 100 mg qd and lasix 40 mg amMonitor resp. status, fluid status, wts and labs. Chronic at rial fibrillation 719454621 I48.0 Rate in good control on metoprolol ER 100 mg qd.Not on chronic AC due to GI bleed. Currently on Xarelto for 30 days post-op.Mo nitor HR and bleeding risk. Chronic ki dney disease stage 3A 889773349 N18.31 Stable at baseline.C ontinue to avoid nephrotoxi c meds as able.Monit or labs.Renal consult prn. [id number] LORNA SAUCEDO NP [facility] SUKHDEEP [address] [place] [address] 12/13/2020 12:39:28 12/17/2020 12:46:43 Pain in right knee 2081430213 63010 M25.561 tramadol 50 mg q6hr scheduledt izanadine 2 mg g5gkcycbfi one 5-10 mg q4hr prnknee immobilize r Surgical i ncision wound of skin 2139130344 00 R23.8 monitor for any signs of infectionf /u NEOS [id number] LORNA SAUCEDO NP [address] [address] 12/16/2020 10:18:46 12/17/2020 13:39:35 Asthenia 88108810 R53.1 PT OT eval and treat monitor fall risk was ambulating with walker prior Pain in right knee 77071 92222 48085 M25.561 tramadol 50 mg q6hr scheduledt izanadine 2 mg u3tcgaefpi one 5-10 mg q4hr prnknee immobilize r [id number] LORNA SAUCEDO NP [address] [address] 12/20/2020 12:36:08 12/24/2020 11:10:32 Gout 01344880 M10.09 allopurino l 100 mg daily lidocaine patch daily right knee diclofenac 1% to knees bid prn cholchecin e 0.6 2-tabs qd prn Pain in right knee 85140 97737 65371 M25.561 tramadol 50 mg q6hr scheduledt izanadine 2 mg f4hevneikr one 5-10 mg q4hr prnknee immobilize r Surgical i ncision wound of skin 2150067574 00 R23.8 monitor for any signs of infectionf /u NEOS [id number] LORNA SAUCEDO NP RORY TARANGO [address] [place] [address] 12/23/2020 08:51:19 12/25/2020 15:10:59 Degenerative joint disease involving multiple joints 056683508 M15.0 Needs PT/OT for strengthen ing, balance, gait training, safety and function tizanadine 2 mg tid tramadol 50 mg qid -100 mg q6hr prn APAP 650 mg q6hr . rivaroxaba n 10 mg qd for DVT prophylaxi s. Monitor pain relief Surgical i ncision wound of skin 7414962749 00 R23.8 monitor for any signs of infectionf /u NEOS Pain in right knee 64129 30151 51006 M25.561 tramadol 50 mg q6hr scheduledt izanadine 2 mg s2duoogclp one 5-10 mg q4hr prnknee immobilize r Gout 11028226 M10.09 allopurino l 100 mg daily lidocaine patch daily right knee diclofenac 1% to knees bid prn cholchecin e 0.6 2-tabs qd prn- hold during naproxynna proxyn 500 mg bid x 7 days [id number] JORDON MENENDEZ [address] [place] [address] 12/27/2020 11:12:53 12/30/2020 15:10:57 Surgical incision wound of skin 9982272254 00 R23.8 monitor for any signs of infectionf /u NEOS Pain in right knee 35604 24676 78704 M25.561 tramadol 50 mg q6hr scheduledt izanadine 2 mg o2vclhopze one 5-10 mg q4hr prn [id number] JORDON MENENDEZ [address] [place] [address] 12/30/2020 10:50:14 01/01/2021 14:58:34 Surgical incision wound of skin 2384503436 00 R23.8 monitor for any signs of infectionf /u NEOS Pain in right knee 25417 44864 26800 M25.561 tramadol 50 mg q6hr scheduled- change to q8 hr for 7 daystizana dine 2 mg p5ryclpwlt one 5-10 mg q4hr prn--d/c the 10 mg dose Asthenia 56536816 R53.1 PT OT eval and treat monitor fall risk was ambulating with walker prior [id number] JORDON MENENDEZ [address] [place] [address] 5 12/31/2020 10:59:03 01/01/2021 15:38:08 Hjiux-vj-soeahtz renal failure 795235725 N18.9 monitor labssend to ED for JOSE CARLOS [id number] JORDON MENENDEZ SUKHDEEP [address] [place] [address] [place] [address] 01/07/2021 08:34:28 01/09/2021 14:53:44 Gisxa-ia-zksgxtj renal failure 833593353 N18.9 monitor labssend to ED for JOSE CARLOS Asthenia 48248440 R53.1 PT OT eval and treat monitor fall risk was ambulating with walker prior Chronic at rial fibrillation 899492604 I48.0 lasix 40 mg daily, 20 mg Fr/Sa/Ching metoprolol er 100 mg hs Chronic ki dney disease stage 3A 780353392 N18.31 monitor labs and urine output Congestive heart failure 65631973 I50.22 lasix 40 mg daily, 20 mg Fr/Sa/Ching monitor resp status Constipation 10731636 K5 9.09 miralax daily prncolace bid Degenerati ve joint disease involving multiple joints 668253806 M15.0 Needs PT/OT for strengthen ing, balance, gait training, safety and function APAP 650 mg q6hr .oxycodone 5 mg q4hr prnMonitor pain relief Coronary arteriosclerosis 65358191 I25.10 monitor for any symptoms Disorder o f urinary bladder 33255895 N32.9 myrbetriq 50 mg daily Essential hypertension 24717656 I10 metoprolol er 100 mg hs monitor bp Gastroesop hageal reflux disease without esophagitis 562090803 K21.9 protonix 40 mg dailytums q4 hr prn Gout 00639707 M10.09 allopurino l 100 mg daily diclofenac 1% to knees bid prn cholchecin e 0.6 2-tabs qd prn History of deep vein thrombosis 645534881 Z86.718 monitor Hyperlipidemia 73124563 E78.49 atorvastat in 80 mg daily Overactive urinary bladder 251878692 N32.81 myrbetriq 50 mg qd.monitor sxs. Pain in right knee 44112 56964 48205 M25.561 oxycodone 5 mg q4hr prn Renal mass 656768902 N28 .89 f/u with nephrologi stmonitor labs Surgical i ncision wound of skin 8083471579 00 R23.8 monitor for any signs of infectionf /u NEOS 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 733072960 E11.9 diet controlled , not on meds for this accucheck prnlispro sliding scale [id number] Inge Rodríguez MD [address] [place] [address] 01/09/2021 15:45:40 01/14/2021 12:02:05 Wsuxr-bp-hqooygm renal failure 250865532 N18.9 Almost back to baseline.C ontinue to avoid nephrotoxi c meds as able.Ginette nue to encourage po fluids.Mon itor labs.Renal f/u as planned. Asthenia 26277125 R53.1 Continues to be very deconditio ellis, due to multiple complicati ons since original admission. Needs PT/OT for strengthen ing, balance, gait training, safety and function.C ontinue fall precaution s.Monitor for safety. Chronic at rial fibrillation 449136348 I48.0 Rate in good control on metoprolol ER 100 mg qd.Not on chronic AC due to hx of GI bleed.Lorna tor HR and bleeding risk. Chronic ki dney disease stage 3A 642741541 N18.31 As above. Congestive heart failure 54964040 I50.[address]Appe ars euvolemic. Continue metoprolol 100 mg qd and lasix 40 mg qam with extra 20 mg at 2pm on Fr/Sa/SuMo nitor resp. status, fluid status, wts and labs. Constipation 83798930 K5 9.09 Continue bowel meds as ordered. Degenerati ve joint disease involving multiple joints 980280756 M15.0 Continue APAP 650 mg q 6 hrs prn, and oxycodone 5 mg q 4 hrs prnPT/OT as above.Lorna tor pain relief Coronary arteriosclerosis 21253271 I25.10 No current sxs.Contin eu meds as above.Lorna tor for sxs.F/U with cardio as planned. Renal mass 163332541 N28 .89 f/u with nephrologi stmonitor labs Surgical i ncision wound of skin 8747967834 00 R23.8 monitor for any signs of infectionf /u NEOS 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 013537326 E11.9 diet controlled , not on meds for this accucheck prnlispro sliding scale Pain in right knee 77239 54602 28133 M25.561 Still with sig. pain, but relieved [...] with ortho as planned. Overactive urinary bladder 024713799 N32.81 Continue myrbetriq 50 mg qd.Monitor urinary function. Hyperlipidemia 86698064 E78.49 Continue atorvastat in 80 mg qd.Monitor labs as outpt. History of deep vein thrombosis 700934323 Z86.718 No longer on ACMonitor for sxs. Gout 10194002 M10.09 Continue allopurino l 100 mg qd and colchicine 0.6 2 tabs qd prn for flares. Monitor for sxs. Gastroesop hageal reflux disease without esophagitis 156638747 K21.9 No current sxs.Contin ue pantoprazo le 40 mg qd and tums q 4 hrs prnMonitor for sxs. Essential hypertension 76332047 I10 Good control on meds as above.Lorna tor BP and labs. [id number] JORDON MENENDEZ [address] [place] [address] [place] [address] 01/10/2021 12:10:44 01/14/2021 12:05:06 Pain in right knee 1301299972 12121 M25.561 oxycodone 5 mg q4hr prn Surgical i ncision wound of skin 5342732311 00 R23.8 monitor for any signs of infectionf /u NEOS Asthenia 58949717 R53.1 PT OT eval and treat monitor fall risk was ambulating with walker prior [id number] JORDON MENENDEZ [address] [place] [address] rd [place] [address] 01/15/2021 08:23:33 01/17/2021 15:03:46 Surgical incision wound of skin 2948300471 00 R23.8 monitor for any signs of infectionf /u NEOS Pain in right knee 31822 44437 86058 M25.561 tylenol prn Acute-on-c hronic renal failure 509382952 N18.9 monitor labsimprov ing kidney function Asthenia 25594131 R53.1 PT OT eval and treat monitor fall risk was ambulating with walker prior Chronic at rial fibrillation 408041486 I48.0 lasix 40 mg daily, 20 mg Fr/Sa/Ching metoprolol er 100 mg hs Chronic ki dney disease stage 3A 916224562 N18.31 monitor labs and urine output Congestive heart failure 51460816 I50.22 lasix 40 mg daily, 20 mg Fr/Sa/Ching monitor resp status Constipation 61266557 K5 9.09 miralax daily prncolace bid Coronary arteriosclerosis 32192716 I25.10 monitor for any symptoms Degenerati ve joint disease involving multiple joints 520150781 M15.0 Needs PT/OT for strengthen ing, balance, gait training, safety and function APAP 650 mg q6hr . Monitor pain relief Disorder o f urinary bladder 19947678 N32.9 myrbetriq 50 mg daily Essential hypertension 30983961 I10 metoprolol er 100 mg hs monitor bp Gastroesop hageal reflux disease without esophagitis 676560435 K21.9 protonix 40 mg dailytums q4 hr prn Gout 34347327 M10.09 allopurino l 100 mg daily diclofenac 1% to knees bid prn cholchecin e 0.6 2-tabs qd prnnaproxy n 500 mg bid for 5 days to 01/19 History of deep vein thrombosis 063930638 Z86.718 monitor Hyperlipidemia 38388558 E78.49 atorvastat in 80 mg daily Overactive urinary bladder 085177553 N32.81 myrbetriq 50 mg qd.monitor sxs. 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 977386947 E11.9 diet controlled , not on meds for this accucheck prnlispro sliding scale Renal mass 111784781 N28 .89 f/u with nephrologi stmonitor labs Health Concerns Section Related Observation LastModified by Organization Detai ls LastModified Time None Recorded Concern Status LastModified by Organization Details LastModified Time None Recorded Advance Directives Directive Y: CPR-hospital ok, no dialy sis , ok for iv. hydration, art nut. Payers Encounter Date Sequence Insurance Name Policy Number Policy Conklin Covered Member ID Conklni Member ID Guarantor Name 12/31/2020 2 WPS - FOR LIFE (MEDICARE SUPPLEMENT) Margo Fang [id number] [facility] 12/31/2020 1 MEDICARE B-[place]: [facility] [place] Marvel Leoncio [id number] [facility] 01/07/2021 2 WPS - FOR LIFE (MEDICARE SUPPLEMENT) Margo Leoncio [id number] [facility] 01/07/2021 1 MEDICARE B-[place]: [facility] [employer] [facility] [place] Marvel Leoncio [id number] [facility] 01/09/2021 2 WPS - FOR LIFE (MEDICARE SUPPLEMENT) Margo Leoncio [id number] [facility] 01/09/2021 1 MEDICARE B-[place]: [facility] [employer] [facility] [place] Marvel Fang [id number] [facility] 01/10/2021 2 WPS - FOR LIFE (MEDICARE SUPPLEMENT) Margo Leoncio [id number] [facility] 01/10/2021 1 MEDICARE B-[place]: [facility] Margo Marvel Leoncio [id number] [facility] 01/15/2021 2 WPS - FOR LIFE (MEDICARE SUPPLEMENT) [place] Leoncio [id number] [facility] 01/15/2021 1 MEDICARE B-[place]: [facility] [employer] [place] Marvel Leoncio [id number] [place] Fang Notes Date Note Type Note Provider [...] for further eval LORNA SAUCEDO NP [address] [facility], [address], [place], [address], [facility] 12/31/2020 11:35:16 01/07/2021 text/html seen today for [...] cms, no nausea, ate well at breakfast, [employer]'s aware of monitoring how many voids and charting this LORNA SAUCDEO, JORDON [address] [facility], [address], [place], [address], [facility] Laboratories 01/08/2021 10:18:32 01/09/2021 text/html This is an [...] obesity, and anemia. Inge Rodríguez MD [address] [facility], [address], [place], [phone], [employer] 01/13/2021 20:29:24 01/10/2021 text/html seen today for a cute rounding visit, CAOx3 ambulating in the PT gym, gait more steady, right knee swelling almost gone, incision healed with a couple of small scabs, good cms to leg, she assures me she is voiding well and drinking well, staff report she has been voiding LORNA SAUCEDO NP [address] [facility], [address], [place], [address], [employer] 01/10/2021 12:19:50 01/15/2021 text/html seen today for [...] cms, no nausea, ate well at breakfast, GAS FITTER's aware of monitoring how many voids and charting this, she is a supervision with ambulation and walker, kidney function is slowly improving LORNA SAUCEDO, JORDON [address] [facility], [address], [place], [address], [facility] - [facility] 01/15/2021 11:11:26 OBGyn Episode No OBEpisode recorded.
--- OUTSIDE RECORDS SUMMARY | 2024-07-07 15:32 | XMS_ITS | Clinical Summary ---
Author Organization [facility] Address [address] [place] [phone] Phone Care Team Providers Care Chlorine Cells Operator Name Role Phone Vee Chand MD [...] (50 mcg total) by mouth daily. Active Encounters Date Type Department Care Team Description 06/13/2024 1:45 PM EDT Office Visit [facility] Hematology Oncology [address] [place] [phone] Jose E Mckeon MD Macrocytic anemia (Primary Dx) from Last 3 Months Immunizations Name Administration Dates Next Due Pfizer SARS-CoV-2 COVID-19, mRNA, LNP-S, preservative free 02/04/2021 Surgical History Surgery Date Site/Laterality Comments HERNIA REPAIR PROCEDURE:HERNIA REPAIR Medical History Medical History Date Comments Heart attack (CMS/HCC V24, CMS/HCC V28) DX:Heart attack (HCC) Family History Medical History [...] Sign Reading Time Taken Comments Blood Pressure 123/59 06/13/2024 1:53 PM EDT Pulse 69 06/13/2024 1:53 PM EDT Temperature 36.5 ??C (97.7 ??F) 06/13/2024 1:53 PM ED T Respiratory Rate - - Oxygen Saturation 100% 06/13/2024 1:53 PM EDT Inhaled Oxygen Concentration - - Weight 74.8 kg (165 lb) 06/13/2024 1:53 PM EDT Height - - Body Mass Index - - Plan of Treatment Upcoming Encounters Date Type Department Care Team (Late st Contact Info) Description 07/03/2025 3:00 PM EDT Office Visit [facility] Hematology Oncology [address] [place] [phone] Jose E Mckeon MD [address] [place] [address] Health Maintenance Due Date Last Done Comments Diabetes: Annual GFR (Glomerular Filtration Rate) 1940 Diabetes: Annual Foot Exam 1950 Diabetes: Annual Retina Eye Exam 1950 Zoster Vaccines (1 of 2) 11/06/1959 RSV Immunization Adult Patients (1 - 1-dose 75+ series) 11/06/2015 Cholesterol Screening (Lipid Panel) 02/27/2022 Depression Screening 02/27/2022 Falls Risk Assessment 02/27/2022 Osteoporosis Screening (Bone Density Screening) 02/27/2022 Social Influencers of Health Screening 02/27/2022 Medicare Annual Wellness Visit 02/11/2023 02/11/2022 COVID-19 Vaccine ( season) 2023 01/28/2022, 02/04/2021, 06/19/2020, Additional history exists DTaP,Tdap,and Td Vaccines (2 - Td or Tdap) 02/13/2024 02/12/2014 Diabetes: Annual Urine Albumin-Creatinine Ratio (uACR) 06/08/2024 Diabetes: Blood Sugar Control Test (HGBA1C) 06/08/2024 Hypertension/CHF/CAD Annual BMP Blood Test 06/08/2024 Influenza Vaccine (Season Ended) 2024 12/24/2022, 01/02/2022, 01/05/2021, Additional history exists Pneumococcal Vaccine: 50+ Years Completed 08/09/2014, 06/09/2014, 06/20/2013, Additional history exists HIB Vaccines Aged Out [...] age to complete this topic Meningococcal B Vaccine Aged Out No l onger eligible based on patient's age to complete this topic RSV Immunization Patients Under 20 months Aged Out No longer eligible based on patient's age to complete this topic Varicella Vaccines Aged Out No longer eligible based on patient's age to complete this topic Procedures Procedure Name Priority Date/Time Associated Diagnosis Comments CBC WITH AUTO DIFFERENTIAL Routine 06/08/2024 1:20 PM EDT Simple chronic anemia RETICULOCYTE COUNT Routine 06/08/2024 1: 20 PM EDT Simple chronic anemia HAPTOGLOBIN Routine 06/08/2024 1:20 PM EDT Simple chronic anemia CBC AND DIFFERENTIAL Routine 06/08/2024 1:20 PM EDT Simple chronic anemia VITAMIN B12 Routine 06/08/2024 1:20 PM EDT Simple chronic anemia ..MISCELLANEOUS REFERENCE LAB TEST 05/23/2024 ..MISCELLANEOUS REFERENCE LAB TEST 05/23/2024 from Last 3 Months Results * (ABNORMAL) CBC auto differential (06/08/2024 1:20 PM EDT) [facility] Signature WBC 3.3(L) 4.8 - 10.8 K/mcL LAB HEMETOLOGY METHOD 06/08/2024 1:45 PM EDT [facility] RBC 2.40(L) 3.80 - 4.80 M/mcL LAB HEMETOLOGY METHOD 06/08/2024 1:45 PM EDT [facility] Hemoglobin 8.4(L) 11.5 - 16.0 g/dL LAB HEMETOLOGY METHOD 06/08/2024 1:45 PM EDT [facility] Hematocrit 26.8(L) 35.0 - 47.0 % LAB HEMETOLOGY METHOD 06/08/2024 1:45 PM EDT [facility] MCV 110.7(H) 79.0 - 98.0 FL LAB HEMETOLOGY METHOD 06/08/2024 1:45 PM EDT [facility] MCH 34.7(H) 27.0 - 32.0 pcg LAB HEMETOLOGY METHOD 06/08/2024 1:45 PM EDT [facility] MCHC 31.3(L) 32.0 - 37.0 g/dL LAB HEMETOLOGY METHOD 06/08/2024 1:45 PM EDT [facility] RDW 16.6(H) 11.0 - 15.0 % LAB HEMETOLOGY METHOD 06/08/2024 1:45 PM EDT [facility] Platelets 154 130 - 400 K/mcL LAB HEMETOLOGY METHOD 06/08/2024 1:45 PM EDT [facility] MPV 10.2 7.0 - 11.0 FL LAB HEMETOLOGY METHOD 06/08/2024 1:45 PM EDT [facility] NRBC 0.0 <1.0 % LAB HEMETOLOGY METHOD 06/08/2024 1:45 PM EDT [facility] NRBC Absolute 0.00 <0.10 K/mcL LAB HEMETOLOGY METHOD 06/08/2024 1:45 PM EDT [facility] Neutrophils Relative 47.4 % LAB HEMETOLOGY METHOD 06/08/2024 1:45 PM [facility] Lymphocytes Relative 37.8 % LAB [facility]OLOGY [facility] Monocytes Relative 11.5 % LAB HEMETOLOGY METHOD 06/08/2024 1:45 PM EDT [facility] Eosinophils Relative 1.8 % LAB HEMETOLOGY METHOD 06/08/2024 1:45 PM EDT [facility] Basophils Relative 1.2 % LAB HEMETOLOGY METHOD 06/08/2024 1:45 PM EDT [facility] Immature Granulocytes Relative 0.3 % LAB HEMETOLOGY METHOD 06/08/2024 1:45 PM EDT [facility] Neutrophils Absolute 1.57 1.50 - 7.00 K/mcL LAB HEMETOLOGY METHOD 06/08/2024 1:45 PM EDT [facility] Lymphocytes Absolute 1.25 1.00 - 5.00 K/mcL LAB HEMETOLOGY METHOD 06/08/2024 1:45 PM EDT [facility] Monocytes Absolute 0.38 0.20 - 1.00 K/mcL LAB HEMETOLOGY METHOD 06/08/2024 1:45 PM EDT [facility] Eosinophils Absolute 0.06 0.00 - 0.50 K/mcL LAB HEMETOLOGY METHOD 06/08/2024 1:45 PM EDT [facility] Basophils Absolute 0.04 0.00 - 0.20 K/mcL LAB HEMETOLOGY METHOD 06/08/2024 1:45 PM EDT [facility] Immature Granulocytes Absolute 0.01 0.00 - 0.03 K/mcL LAB HEMETOLOGY METHOD 06/08/2024 1:45 PM EDT [facility] Blood Venous blood specimen / Unknown Venipuncture / Unknown 06/08/2024 1:20 PM EDT 06/08/2024 1:36 PM EDT us Jose E Mckeon MD LAB BLOOD ORDERABLES Final R esult [facility] [address] [place] [address], * (ABNORMAL) Reticulocyte count (06/08/2024 1:20 PM EDT) Retic Ct Abs 0.050 0.030 - 0.090 M/mcL LAB HEMETOLOGY METHOD 06/08/2024 1:45 PM EDT [facility] Retic Ct Pct 2.2(H) 0.7 - 1.7 % LAB HEMETOLOGY METHOD 06/08/2024 1:45 PM EDT [facility] Immature Retic Fract 9.8 2.3 - 15.9 % LAB HEMETOLOGY METHOD 06/08/2024 1:45 PM EDT [facility] Reticulocyte Hemoglobin 31.1 >29.0 pcg LAB HEMETOLOGY METHOD 06/08/2024 1:45 PM EDT [facility] Blood Venous blood specimen / Unknown Venipuncture / Unknown 06/08/2024 1:20 PM EDT 06/08/2024 1:36 PM EDT Jose E Mckeon MD LAB BLOOD ORDERABLES Final R esult Performing Organization Address City/[facility]/ZIP Co de Phone Number [facility] [address] [place] [address], [place] [phone] * Haptoglobin (06/08/2024 1:20 PM EDT) Haptoglobin 102 16 - 200 mg/dL LAB CHEMISTRY METHOD 06/08/2024 5:21 PM EDT [facility] Blood Venous blood specimen / Unknown Venipuncture / Unknown 06/08/2024 1:20 PM EDT 06/08/2024 1:36 PM EDT Jose E Mckeon MD LAB BLOOD ORDERABLES Final R esult [facility] [address] [place] [address], [place] [phone] * (ABNORMAL) Vitamin B12 (06/08/2024 1:20 PM EDT) Vitamin B-12 >2,000(H) 250 - 900 pcg/mL LAB CHEMISTRY METHOD 06/08/2024 5:44 PM EDT [facility] Blood Venous blood specimen / Unknown Venipuncture / Unknown 06/08/2024 1:20 PM EDT 06/08/2024 1:36 PM EDT us Jose E Mckeon MD LAB BLOOD ORDERABLES Final R esult [email or web address] [address] [place] [address], [place] [phone] * Miscellaneous reference lab test (05/23/2024) Only the most recent of2 resultswithin the time period is included. us Provider Onbase LAB BLOOD ORDERABLES Final Re sult from Last 3 Months Insurance MEDICARE [facility] Advance Directives Documents on File Type Date Recorded Patient Catastrophe Claims Supervisor Expl anation Health Care Decision (hx) 07/15/2019 AD DAVILA DIRECTIVE Health Care Decision (hx) 06/17/2019 AD DAVILA DIRECTIVE Health Care Decision (hx) 06/08/2019 AD DAVILA DIRECTIVE Care Teams Chlorine Cells Operator Relationship Specialty Start Date End Date Vee Chand MD [address] [place] [address] PCP - General Internal Medicine 08/18/19
--- NOTE | 2024-07-07 15:33 | HO.NEPHOV_ITS ---
Vital Signs 07/07/24 15:34 Height 5 ft 5 in Weight 166 lb 2 oz BMI 27.6 BP 110/60 Blood Pressure Location Lt brachial Position Sitting Intake Visit Reasons: 6 weeks [facility] Configuration Management Analyst Required: No Accompanied by: Daughter Allergies lisinopril [LISINOPRIL] Allergy (Severe, Verified 07/07/24 15:34) ANGIOEDEMA HPI Comments Details: Margo was seen in follow-up of her chronic kidney disease. She has medical history significant for CKD, CAD, ischemic cardiomyopathy with ICD, HFrEF, paroxysmal atrial fibrillation, HTN, T2DM, anemia, arthritis, urinary incontinence, secondary hyperparathyroidism, GERD . She has H/O JOSE CARLOS superimposed on CKD with creatinine going up to 8.0. JOSE CARLOS was thought to be 2/2 to combination of recent gastroenteritis and also patient being on diuretics ( reported to be taking double doses than prescribed.) and contrast exposure on 04/09. Her creatinine improved / stable with supportive care. She does not have any chest pain, shortness of breath, worsening pedal edema. She has no urinary symptoms. She has a renal mass and is followed by a urologist. She does not have any weight loss, hematuria, night sweats. She tries to be compliant with a low-sod ium diet. Her diuretics are adjusted by cardiology COUNTS INCLUDE 234 BEDS AT THE [facility] Medical History (Updated 04/28/24 @ 20:22 by Jaspreet Menchaca MD) Acute kidney injury Secondary hyperparathyroidism Essential (primary) hypertension Renal mass Chronic kidney disease, stage 3b Surgical History History of knee replacement Family History Mother Heart disease Father Lung cancer Social History Alcohol intake: never Patient Tobacco Use Status: Former Tobacco user Review of Systems Const All systems reviewed & are unremarkable except as noted in HPI and below Physical Exam Vital Signs: Last Vital Signs BP 110/60 07/07/24 15:34 BMI result Body Mass Index 27.6 Const General: comfortable and no acute distress Orientation/consciousness: patient oriented x3 HEENT Head: Yes normocephalic Mouth: Normal oral and palatal mucosa present Eyes EOM: EOMs intact bilaterally Neck Neck: Yes supple Resp Auscultation: clear to auscultation bilaterally Cardio Jugular venous distension: no JVD Rate: regular rate GI Palpation (GI): Soft to palpation Auscultation: normal bowel sounds General: Yes no CVA tenderness Back/Spine/Pelvis Back: no CVA tenderness Skin General skin exam: no rashes or lesions noted Neuro General: patient oriented x3 and moves all extremities Extrem General: Yes no pedal edema Office Meds epoetin [id number]-epbx 10,000 unit/mL injection solution Performing Provider: Jaspreet Menchaca MD [facility] Administered by: Jaspreet Menchaca MD on 07/07/24 15:44 Dose Route Admin Location Dispensed Lot Number Expiration Date [facility] [employer] Developer 40,000 unit subcut LUE 4 mL [id number] 09/19/25 [id number] [employer] Results Reviewed Nephrology Results: No Data to Display Assessment & Plan Assessment & Plan (1) Anemia in chronic kidney disease (CKD): Code(s): N18.9 - Chronic kidney disease, unspecified; D63.1 - Anemia in chronic kidney disease Category: Medical Qualifiers: Chronic kidney disease stage: stage 4 (severe) Qualified Code(s): N18.4 - Chronic kidney disease, stage 4 (severe); D63.1 - Anemia in chronic kidney disease (2) Secondary hyperparathyroidism: Code(s): N25.81 - Secondary hyperparathyroidism of renal origin Category: Medical (3) Essential (primary) hypertension: Code(s): I10 - Essential (primary) hypertension Category: Medical (4) Chronic kidney disease, stage 3b: Code(s): N18.32 - Chronic kidney disease, stage 3b Category: Medical (5) Renal mass: Code(s): N28.89 - Other specified disorders of kidney and ureter Category: Medical Plan Margo has stage III B CKD at baseline. She had JOSE CARLOS's from cardiorenal sy ndrome with loss of GFR. She is hemodynamically stable . Her volume status is optimal. Her diuretics are adjusted by [facility] cards. She should be on low-sodium diet. She should avoid nonsteroidal anti-inflammatory medications. Her renal functions are close baseline. I gave [id number] Units of Procrit in the office today. She will need activated Vitamin D soon. I shall explore whether she is a candidate for SGLT2 i after a 24 hour urine collection . I did not make any other medication changes today. She follows-up with her urologist for her renal mass. All questions were answered Orders: Orders Complete Blood Count Auto Diff 1 Month D63.1 - Anemia in chronic kidney disease, N18.4 - Chronic kidney disease, stage 4 (severe) AMB Epoetin Injection Practice Supplied 07/07/24 D63.1 - Anemia in chronic kidney disease, N18.4 - Chronic kidney disease, stage 4 (severe) Coding Level of Care Code Est Pt Level 4 (25319) Diagnoses Anemia in stage 4 chronic kidney disease N18.4; D63.1 Chronic kidney disease stage: stage 4 (severe) Secondary hyperparathyroidism N25.81 Essential (primary) hypertension I10 Chronic kidney disease, stage 3b N18.32 Renal mass N28.89
--- OUTSIDE RECORDS SUMMARY | 2024-07-07 15:33 | XMS_ITS | Clinical Summary ---
Author Organization Unknown Care Team Providers Care Clinical Product Specialist Name Role Phone MELODY RODRÍGUEZ MD, NEIL Unavailable Angy MANTILLA RN, ADMISSION NURSE, LONNIE Unavail able Unavailable HI NAVARRO, CLINICAL SUPERVISOR [employer]LESS [employer] VEHICLE, SANAZ Hsieh available Unavailable KALEB OLIVERA RN Unavailable Unavailable Payers Payer Name Policy Type Policy Number Effective Date Expira tion Date MEDICARE - [facility] - PDGM [id number] Problems Condition Name Condition Details Condition Category [...] 03-22 00:00: 00 ATHSCL HEART DISEASE OF [place] CORONARY ARTERY W/O ANG PCTRS Active 03-22 [...] health literacy Active 03-22 00:00: 00 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) DRUG THERAPY Active 03-22 00:00: 00 [...] 2020-03 00:00: 00 11-13 23:59 :00 No [id number] 1 tablet DAILY 1 tablet DAILY (route: oral) Med Classific ation: Gout and Hyperuric emia Therapy atorvastati n 80 mg tablet 2020-03 00:00: 00 11-13 23:59 :00 No [id number] 1 tablet DAILY 1 tablet DAILY (route: oral) Med Classific ation: Cardiovas cular Therapy Agents Colace 100 mg capsule 2020-03 00:00: 00 11-13 23:59 :00 No [id number] 1 capsule NEEDED 1 capsule NEEDED (route: oral) Med Classific ation: Gastroint estinal Therapy Agents colchicine 0.6 mg capsule 2020-03 00:00: 00 11-13 23:59 :00 No [id number] 2 capsule NEEDED 2 capsule NEEDED (route: oral) Med Classific ation: Gout and Hyperuric emia Therapy Despec-DM (phenylephr ine-DM-guai f) 5 mg-10 mg-100 mg/5 mL oral liquid 2020-03 00:00: 00 11-13 23:59 :00 No [id number] Per instruc tions NEEDED Per instructio ns NEEDED (route: oral) Med Classific ation: Respirato ry Therapy Agents Lasix 20 mg tablet 2020-03 00:00: 00 11-13 23:59 :00 No [id number] 1 tablet DAILY 1 tablet DAILY (route: oral) Med Classific ation: Cardiovas cular Therapy Agents Lasix 40 mg tablet 2020-03 00:00: 00 11-13 23:59 :00 No [id number] 1 tablet DAILY 1 tablet DAILY (route: oral) Med Classific ation: Cardiovas cular Therapy Agents melatonin 3 mg tablet 2020-03 00:00: 00 11-13 23:59 :00 No [id number] 2 tablet BEDTIME 2 tablet BEDTIME (route: oral) Med Classific ation: Central Nervous System Agents Miralax 17 gram/dose oral powder 2020-03 00:00: 00 11-13 23:59 :00 No [id number] Per instruc tions NEEDED Per instructio ns NEEDED (route: oral) Med Classific ation: Gastroint estinal Therapy Agents nystatin 100,000 unit/gram topical powder 2020-03 00:00: 00 11-13 23:59 :00 No [id number] Per instruc tions 2 TIMES DAILY Per instructio ns 2 TIMES DAILY (route: topical) Med Classific ation: Dermatolo gical Protonix 40 mg tablet,beto yed release 2020-03 00:00: 00 11-13 23:59 :00 No [id number] 1 tablet DAILY 1 tablet DAILY (route: oral) Med Classific ation: Gastroint estinal Therapy Agents Vitamin B-12 100 mcg tablet 2020-03 00:00: 00 11-13 23:59 :00 No [id number] 1 tablet DAILY 1 tablet DAILY (route: oral) Med Classific ation: Electroly te Balance-N utritiona l Products Myrbetriq 50 mg tablet,exte nded release 11-16 00:00: 00 12-31 23:59 :00 No [id number] 1 tablet DAILY 1 tablet DAILY (route: oral) Med Classific ation: Genitouri nary Therapy calcitriol 0.25 mcg capsule 11-06 00:00: 00 11-16 00:00 :00 No [id number] Per instruc tions Per instructio ns (route: oral) Med Classific ation: Electroly te Balance-N utritiona l Products calcitriol 0.25 mcg capsule 11-06 00:00: 00 04-15 23:59 :00 No [id number] Per instruc tions THREE TIMES A WEEK Per instructio ns THREE TIMES A WEEK (route: oral) Med Classific ation: Electroly te Balance-N utritiona l Products pantoprazol e 40 mg tablet,beot yed release 10-31 00:00: 00 11-16 00:00 :00 No [id number] Per instruc tions Per instructio ns (route: oral) Med Classific ation: Gastroint estinal Therapy Agents pantoprazol e 40 mg tablet,beto yed release 10-31 00:00: 00 04-15 23:59 :00 No [id number] Per instruc tions EVERY DAY Per instructio ns EVERY DAY (route: oral) Med Classific ation: Gastroint estinal Therapy Agents allopurinol 100 mg tablet 11-16 00:00: 00 04-15 23:59 :00 No [id number] .5 tablet DAILY .5 tablet DAILY (route: oral) Med Classific ation: Gout and Hyperuric emia Therapy allopurinol 100 mg tablet 10-15 00:00: 00 11-16 00:00 :00 No [id number] Per instruc tions EVERY DAY Per instructio ns EVERY DAY (route: oral) Med Classific ation: Gout and Hyperuric emia Therapy atorvastati n 80 mg tablet 10-15 00:00: 00 11-16 00:00 :00 No [id number] Per instruc tions Per instructio ns (route: oral) Med Classific ation: Cardiovas cular Therapy Agents atorvastati n 80 mg tablet 10-15 00:00: 00 11-16 00:00 :00 No [id number] Per instruc tions AT BEDTIME Per instructio ns AT BEDTIME (route: oral) Med Classific ation: Cardiovas cular Therapy Agents cephalexin 500 mg tablet 11-16 00:00: 00 12-31 23:59 :00 No [id number] 1 tablet 2 TIMES DAILY 1 tablet 2 TIMES DAILY (route: oral) Med Classific ation: Anti-Infe ctive Agents cyanocobala min (B12)-cobam amide 5,000 mcg-100 mcg sublingual tablet 11-16 00:00: 00 04-15 23:59 :00 No [id number] 1 tablet DAILY 1 tablet DAILY (route: sublingual ) Med Classific ation: Electroly te Balance-N utritiona l Products melatonin 3 mg tablet 11-16 00:00: 00 04-15 23:59 :00 No [id number] 1 tablet BEDTIME 1 tablet BEDTIME (route: oral) Med Classific ation: Central Nervous System Agents metoprolol succinate ER 100 mg tablet,exte nded release 24 hr 11-16 00:00: 00 04-15 23:59 :00 No [id number] 1 tablet DAILY 1 tablet DAILY (route: oral) Med Classific ation: Cardiovas cular Therapy Agents polyethylen e glycol 3350 17 gram oral powder packet 11-16 00:00: 00 04-15 23:59 :00 No [id number] 1 powder in packet DAILY 1 powder in packet DAILY (route: oral) Med Classific ation: Gastroint estinal Therapy Agents Senna Plus 8.6 mg-50 mg capsule 11-16 00:00: 00 04-15 23:59 :00 No [id number] 1 capsule 2 TIMES DAILY 1 capsule 2 TIMES DAILY (route: oral) Med Classific ation: Gastroint estinal Therapy Agents sodium bicarbonate 650 mg tablet 11-16 00:00: 00 12-31 23:59 :00 No [id number] 1 tablet 2 TIMES DAILY 1 tablet 2 TIMES DAILY (route: oral) Med Classific ation: Gastroint estinal Therapy Agents torsemide 20 mg tablet 11-16 00:00: 00 04-15 23:59 :00 No [id number] 1 tablet EVERY OTHER DAY 1 tablet EVERY OTHER DAY (route: oral) Med Classific ation: Cardiovas cular Therapy Agents cephalexin 500 mg tablet 12-18 00:00: 00 12-23 23:59 :00 No [id number] 500 mg 4 TIMES DAILY 500 mg 4 TIMES DAILY (route: oral) Med Classific ation: Anti-Infe ctive Agents potassium chloride 20 mEq oral packet 12-18 00:00: 00 12-23 23:59 :00 No [id number] 20 mEq DAILY 20 mEq DAILY (route: oral) Med Classific ation: Electroly te Balance-N utritiona l Products atorvastati n 80 mg tablet 2021-03 00:00: 00 04-15 23:59 :00 No [id number] 1 tablet BEDTIME 1 tablet BEDTIME (route: oral) Med Classific ation: Cardiovas cular Therapy Agents torsemide 20 mg tablet 04-07 00:00: 00 04-23 23:59 :00 No [id number] 1 tablet DAILY 1 tablet DAILY (route: oral) Med Classific ation: Cardiovas cular Therapy Agents allopurinol 100 mg tablet 03-25 00:00: 00 12-21 23:59 :00 No [id number] Per instruc tions EVERY DAY Per instructio ns EVERY DAY (route: oral) Med Classific ation: Gout and Hyperuric emia Therapy metoprolol succinate ER 100 mg tablet,exte nded release 24 hr 03-25 00:00: 00 12-21 23:59 :00 No [id number] Per instruc tions EVERY DAY Per instructio ns EVERY DAY (route: oral) Med Classific ation: Cardiovas cular Therapy Agents atorvastati n 80 mg tablet 04-21 00:00: 00 12-21 23:59 :00 No [id number] 1 tablet BEDTIME 1 tablet BEDTIME (route: oral) Med Classific ation: Cardiovas cular Therapy Agents calcitriol 0.25 mcg capsule 04-21 00:00: 00 12-21 23:59 :00 No [id number] 1 capsule DAILY 1 capsule DAILY (route: oral) Med Classific ation: Electroly te Balance-N utritiona l Products calcium cit 1,000 mg calcium-vit D3 10 mcg(400 unit)/30 mL oral liquid 04-21 00:00: 00 12-21 23:59 :00 No [id number] 30 mL DAILY 30 mL DAILY (route: oral) Med Classific ation: Electroly te Balance-N utritiona l Products cyanocobala min (vit B-12) 1,000 mcg tablet 04-21 00:00: 00 12-21 23:59 :00 No [id number] 1 tablet DAILY 1 tablet DAILY (route: oral) Med Classific ation: Electroly te Balance-N utritiona l Products fluticasone propionate 50 mcg/actuati on nasal spray,suspe nsion 04-21 00:00: 00 12-21 23:59 :00 No [id number] 1 spray 2 TIMES DAILY 1 spray 2 TIMES DAILY (route: nasal) Med Classific ation: Respirato ry Therapy Agents melatonin 1 mg tablet 04-21 00:00: 00 12-21 23:59 :00 No [id number] 2 tablet BEDTIME 2 tablet BEDTIME (route: oral) Med Classific ation: Central Nervous System Agents metolazone 2.5 mg tablet 04-21 00:00: 00 12-21 23:59 :00 No [id number] 0.5 tablet DAILY 0.5 tablet DAILY (route: oral) Med Classific ation: Cardiovas cular Therapy Agents Miralax 17 gram oral powder packet 04-21 00:00: 00 12-21 23:59 :00 No [id number] 17 g DAILY 17 g DAILY (route: oral) Med Classific ation: Gastroint estinal Therapy Agents Myrbetriq 50 mg tablet,exte nded release 04-21 00:00: 00 12-21 23:59 :00 No [id number] 1 tablet DAILY 1 tablet DAILY (route: oral) Med Classific ation: Genitouri nary Therapy nitroglycer in 0.4 mg sublingual tablet 04-21 00:00: 00 12-21 23:59 :00 No [id number] 1-3 tablet DAILY 1-3 tablet DAILY (route: sublingual ) Med Classific ation: Cardiovas cular Therapy Agents ondansetron HCl 4 mg tablet 04-21 00:00: 00 12-21 23:59 :00 No [id number] 1 tablet DAILY 1 tablet DAILY (route: oral) Med Classific ation: Gastroint estinal Therapy Agents pantoprazol e 40 mg tablet,beto yed release 04-21 00:00: 00 12-21 23:59 :00 No [id number] 1 tablet DAILY 1 tablet DAILY (route: oral) Med Classific ation: Gastroint estinal Therapy Agents Senna with Docusate Sodium 8.6 mg-50 mg tablet 04-21 00:00: 00 12-21 23:59 :00 No [id number] 1 tablet 2 TIMES DAILY 1 tablet 2 TIMES DAILY (route: oral) Med Classific ation: Gastroint estinal Therapy Agents spironolact one 25 mg tablet 04-21 00:00: 00 04-23 23:59 :00 No [id number] 1 tablet DAILY 1 tablet DAILY (route: oral) Med Classific ation: Cardiovas cular Therapy Agents Ventolin HFA 90 mcg/actuati on aerosol inhaler 04-21 00:00: 00 12-21 23:59 :00 No [id number] 2 puff EVERY 6 HOURS 2 puff EVERY 6 HOURS (route: inhalation ) Med Classific ation: Respirato ry Therapy Agents spironolact one 50 mg tablet 04-23 00:00: 00 12-21 23:59 :00 No [id number] 1 tablet DAILY 1 tablet DAILY (route: oral) Med Classific ation: Cardiovas cular Therapy Agents torsemide 20 mg tablet 04-23 00:00: 00 12-21 23:59 :00 No [id number] 2 tablet 2 TIMES DAILY 2 tablet 2 TIMES DAILY (route: oral) Med Classific ation: Cardiovas cular Therapy Agents albuterol sulfate HFA 90 mcg/actuati on aerosol inhaler 2023-03 00:00: 00 Yes [id number] 2 puff EVERY 6 HOURS 2 puff EVERY 6 HOURS (route: inhalation ) Med Classific ation: Respirato ry Therapy Agents allopurinol 100 mg tablet 2023-03 00:00: 00 Yes [id number] 0.5 tablet DAILY 0.5 tablet DAILY (route: oral) Med Classific ation: Gout and Hyperuric emia Therapy atorvastati n 80 mg tablet 2023-03 0 00:00: 00 Yes [id number] 1 tablet BEDTIME 1 tablet BEDTIME (route: oral) Med Classific ation: Cardiovas cular Therapy Agents calcitriol 0.25 mcg capsule 2023-03 00:00: 00 Yes [id number] 1 capsule DAILY 1 capsule DAILY (route: oral) Med Classific ation: Electroly te Balance-N utritiona l Products Colace 100 mg capsule 2023-03 0 00:00: 00 Yes [id number] 1 capsule DAILY 1 capsule DAILY (route: oral) Med Classific ation: Gastroint estinal Therapy Agents doxycycline hyclate 100 mg tablet 2023-03 0 00:00: 00 01-04 23:59 :00 No [id number] 1 tablet 2 TIMES DAILY 1 tablet 2 TIMES DAILY (route: oral) Med Classific ation: Anti-Infe ctive Agents Flonase Allergy Relief 50 mcg/actuati on nasal spray,suspe nsion 2023-03 0-04 00:00: 00 Yes [id number] 1 spray DAILY 1 spray DAILY (route: nasal) Med Classific ation: Respirato ry Therapy Agents Vitamin D2 1,250 mcg (50,000 unit) capsule 2023-03 0-04 00:00: 00 Yes [id number] 1 capsule WEEKLY 1 capsule WEEKLY (route: oral) Med Classific ation: Electroly te Balance-N utritiona l Products Tylenol 8 Hour 650 mg tablet,exte nded release 2023-03 0-16 00:00: 00 Yes [id number] 1 tablet NEEDED 1 tablet NEEDED (route: oral) Med Classific ation: Analgesic , Anti-infl ammatory or Antipyret ic melatonin 3 mg capsule 2023-03 0-15 00:00: 00 Yes [id number] 2 capsule BEDTIME 2 capsule BEDTIME (route: oral) Med Classific ation: Central Nervous System Agents betamethaso ne valerate 0.1 % topical cream 2023-03 1- 00:00: 00 Yes [id number] Per instruc tions DIRECTED Per instructio ns DIRECTED (route: topical) Med Classific ation: Dermatolo gical amoxicillin 875 mg-potassiu m clavulanate 125 mg tablet 1-16 00:00: 00 04-16 23:59 :00 No [id number] 1 tablet EVERY 12 HOURS 1 tablet EVERY 12 HOURS (route: oral) Med Classific ation: Anti-Infe ctive Agents doxycycline monohydrate 100 mg capsule 2- 00:00: 00 04-22 23:59 :00 No [id number] 1 capsule EVERY 12 HOURS 1 capsule EVERY 12 HOURS (route: oral) Med Classific ation: Anti-Infe ctive Agents prednisone 20 mg tablet 2- 00:00: 00 04-24 23:59 :00 No [id number] Per instruc tions DAILY Per instructio ns DAILY (route: oral) Med Classific ation: Endocrine albuterol sulfate HFA 90 mcg/actuati on aerosol inhaler 2-13 00:00: 00 Yes [id number] 1 puff EVERY 4 HOURS 1 puff EVERY 4 HOURS (route: inhalation ) Med Classific ation: Respirato ry Therapy Agents Guaiasorb DM 10 mg-100 mg/5 mL oral liquid 05-06 00:00: 00 Yes [id number] 10 mL DAILY 10 mL DAILY (route: oral) Med Classific ation: Respirato ry Therapy Agents Tamiflu 75 mg capsule 2- 00:00: 00 05-08 23:59 :00 No [id number] 1 capsule DAILY 1 capsule DAILY (route: oral) Med Classific ation: Anti-Infe ctive Agents torsemide 20 mg tablet 07-04 00:00: 00 Yes [id number] 2 tablet 2 TIMES DAILY 2 tablet [...] MAINTAIN SITUATIONAL AWARENESS AND WILL NOTIFY CLINICAL HOSPITAL ORDERLY AND PHYSICIAN/PROVIDER WITH ANY CHANGE IN CONDITION. [code = SKILLED NURSE TO PERFORM ENVIRONMENTAL SAFETY RISK ASSESSMENT AND FALL RISK ASSESSMENT AND PROVIDE INSTRUCTION TO IMPLEMENT ENVIRONMENTAL SAFETY AND FALL PREVENTION STRATEGIES THROUGHOUT THE CERTIFICATION PERIOD. SKILLED NURSE WILL MAINTAIN SITUATIONAL AWARENESS AND WILL NOTIFY CLINICAL HOSPITAL ORDERLY AND PHYSICIAN/PROVIDER WITH ANY CHANGE IN CONDITION.] [...] CARE WILL BE ESTABLISHED THAT MEETS PATIENT'S DETENTION NEEDS AND INCLUDES PATIENT GOAL FOR HOME [...] LE PATIENT/CAREGIVER TEACH BACK:VERBALIZED UNDERSTANDING NEXT APPOINTMENT: GRAIN PACKER NEW ORDERS: DC INSTRUCTED PATIENT AND CAREGIVER TO CALL [facility] WITH ANY QUESTIONS OR CHANGES IN CONDITION</paragraph> Encounters Start Date/Time End Date/Time Encounter Type Admission Type Attending Clinicians Care Facility Care Department Encounter ID Discharge Date Discharge Status Discharge Condition Discharge Reason Percent Goals Met 2023-12-24 00:00:00 2024-08-19 00:00:00 Outpatient RECERTIFIC ATION [facility] [id number] 25.93
[2024-07-07 15:34] VITALS: BP 110/60; BMI 27.6
== END 2024-07-07 15:56 | disposition home or self-care (01) ==
LOC: HO.HKA 15:30
PROVIDERS: PCP Internal Medicine; Visit Provider Internal Medicine Nephrology
DX: N18.4 Chronic kidney disease, stage 4 (severe) (principal); D63.1 Anemia in chronic kidney disease

== ENCOUNTER → 2024-07-07 15:29 | Outpatient (BNVA) | payer MEDICARE, OTHER, SELFPAY | PROVIDERS: PCP Internal Medicine; Visit Provider Internal Medicine Nephrology | DX: E11.22 Type 2 diabetes mellitus with diabetic chronic kidney disease (principal); I12.9 Hypertensive chronic kidney disease with stage 1 through stage 4 chronic kidney disease, or unspecified chronic kidney disease; D63.1 Anemia in chronic kidney disease; I25.10 Atherosclerotic heart disease of native coronary artery without angina pectoris; I48.0 Paroxysmal atrial fibrillation; R32 Unspecified urinary incontinence; N18.32 Chronic kidney disease, stage 3b; N25.81 Secondary hyperparathyroidism of renal origin; N28.89 Other specified disorders of kidney and ureter | CPT/HCPCS: 96372; 99212; Q5106 ==

== ENCOUNTER 2024-08-04 14:59 | Outpatient (AMB) | payer MEDICARE, OTHER, SELFPAY ==
--- OUTSIDE RECORDS SUMMARY | 2024-08-04 15:01 | XMS_ITS | Continuity of Care Document ---
Author Organization [facility] Adult Address [address] [place] [address]- Support Name Relationship Address Phone ANI EPREZ child Unknown Unavailable TORRES, CHASE Personal Relationship [...] Unknown U navailable Care Team Providers Care Electrician [employer] Name Role Phone Mannie MUÑOZ, Vee Primary Care Physician Encounter [facility] Date(s): 06/30/24 - 07/30/24 [facility] [address] [place], [place] [address] Encounter Type: [...] virus vaccine, inactivated 3 01/21/07 Gi tobi [id number] 12y+ bivalent booster vax 01/28/22 Recorded SARS-CoV-2 (COVID-19) mRNA BNT-162b2 vac 02/04/21 Recorded SARS-CoV-2 (COVID-19) Ad26 vaccine 06/19/20 Record ed pneumococcal 13-valent vaccine 08/09/14 Given pneumococcal 13-valent vaccine 08/09/14 Given tetanus/diphtheria/pertussis, acel(Tdap) 02/12/14 Given Fluzone (oldterm) 4 12/26/13 Given pneumococcal 23-valent vaccine 05/06/13 Given Influenza Virus Vaccine (oldterm) 5 05/15/08 Given Pneumococcal Vaccine (oldterm) 6 10/29/05 Given 1Result Comment: [facility] [id number] 2Result Comment: [facility] [id number] 3Admin Note: VIS GIVEN 4Admin Note: [facility] VIS reviewed 5Admin Note: vis given 6Admin Note: vis given Medications Albuterol (Eqv-ProAir HFA) 90 mcg/inh inhalation aerosol 1 inhalation = 90 mcg, Inhalation, Every 4 hours, PRN as needed for shortness of breath or wheezing, # 6.7 Gm, 0 Refills, Maintenance, 05/06/24 9:51:00 AM EST, Aerosol, [facility], Partial fill upon patient [...] 8:44:00 PM EST, Route to Pharmacy Electronically, [facility], 157.9, cm, 12/21/23 15:16:00 EDT, Height, 72, kg, 04/15/23 22:25:00 EST, Dry Weight Start Date: 03/28/24 Status: Ordered Quantity: 45.0 Unit: tablet Repeat number: 1 atorvastatin 80 mg oral tablet 1 tablet, By Mouth, Daily at bedtime, # 90 tablet, 1 Refills, Maintenance, 04/14/24 5:32:00 PM EST, [facility], 157.9, cm, 04/05/24 14:53:00 EST, [...] DX URINRY INCONTINENCE R39.81, SIM 99 VENU [phone], 02/13/22 2:43:00 PM EST, Supply Start Date: 02/13/22 Status: Ordered Quantity: 180.0 Unit: each Repeat number: 12 Indication: Unspecified urinary incontinence Flonase Allergy Relief 50 mcg/inh nasal spray 2 sprays = 100 mcg, Nares, Both, Daily, shake well before using, # 16 Gm, 1 Refills, Maintenance, 04/05/24 3:29:00 PM EST, [employer], [id number], Partial fill [...] INCONTINENCE R39.81, SIM 99 RICK AND MARIE [phone], 02/13/22 2:45:00 PM EST, Supply Start Date: [...] 8:38:00 AM EDT, Route to Pharmacy Electronically, [facility], Partialfill upon patient request if [...] Refills, Maintenance, 11/30/23 7:46:00 AM EDT, [facility], 157.9, cm, 10/14/23 16:09:00 EDT, [...] number: 1 spironolactone 25 mg oral tablet 25 mg, 1, tablet, By Mouth, Daily, # 45 tablet, Refills 3, Tot. Refills 3, Maintenance, 06/26/24 9:28:00 AM EDT, Route to Pharmacy Electronically, [facility], Partial fill upon patient request if the prescription is for a schedule II opioid drug., 165, cm, 05/23/24 14:37:00 EST, Height, 68.8, kg, 05/04/24 9:42:00 EST, Dry Weight Start Date: 06/26/24 Status: Ordered Quantity: 45.0 Unit: tablet Repeat number: 4 torsemide 20 mg oral tablet 2 tablet, By Mouth, 2 times a day, # 120 tablet, 6 Refills, Maintenance, 07/14/24 4:51:00 PM EDT, [facility], 165, cm, 05/23/24 14:37:00 EST, Height, 68.8, kg, 05/04/24 9:42:00 EST,Dry Weight Start Date: 07/14/24 Status: Ordered Quantity: 120.0 Unit: tablet Repeat number: 1 Vitamin B12 1000 mcg [...] Dr Dalal/ [facility] Social History Social History Type Response Smoking Status Former smoker; Tobac co user in household: No; Other: start age 40 quit 2013; entered on: 01/07/18 Sex Sex Representation Female (finding) Goals pt will learn to call office if wt gain > 3 lbs in 2 days or worsening sob / LLE/orthopnea to avoid Start Date:07/24/24 End Willis e: Status:Met Progression:Not Met pt will follow a 2 to 3 gram / day NA diet divided in 3 meals of 500 to 750 mg and 2 snacks Start Date:07/24/24 End Date: Status:Met Progression:Not Met Follows Medication Regime as Prescribed Start Da [...] Team Personnel Name: Alejo Cadet MD Position: [facility] Physician - Gastroenterology Member Role: Lifetime Consulting Physician Address: [address] [place] [address], [address] [facility] [place] [address]- Telecom: Name: Rafita Edward MD Position: [facility] Renal MD Member Role: Lifetime Consulting Physician Address: [address] [place] [address] [id number] [place] [address]- Telecom: Name: Prashanth Rose RN Position: [facility] RN Member Role: Primary Care Nurse Name: Dorothea Wang RN Position: [facility] RN Member Role: Primary Care Nurse Name: Ledy Forbes RN Position: [facility] SN RN Member Role: Primary Care Nurse Name: Kavita Pagan RN Position: [facility] Onco RN Member Role: Primary Care Nurse Name: Prashanth Carmona RN Position: [facility] RN Member Role: Primary Care Nurse Name: Jaspreet Menchaca MD Position: [facility] Renal MD Member Role: Lifetime Consulting Physician Address: [address] [place] [address] [id number] [facility] [place], [place] - Telecom: Name: Maryam Ayers RN Position: [facility] ED RN W/OE and Tasks Member Role: Primary Care Nurse Name: Maxine Diallo RN Position: [facility] Nurse Member Role: Primary Care Nurse Name: Estephanie Carballo RN Position: [facility] RN Member Role: Primary Care Nurse Name: Odalys Chau RN Position: [facility] SN RN Member Role: Primary Care Nurse Name: Reji Willson RN Position: [facility] RN Member Role: Primary Care Nurse Name: Katie Holden RN Position: [facility] AMB Nurse Member Role: Primary Care Nurse Name: Evelyne Garcia RN Position: [facility] RN Member Role: Primary Care Nurse Name: Sol Nobles Position: [facility] AMB Nurse Member Role: Lifetime Consulting Physician Name: Johnna Baker RN Position: [facility] RN Member Role: Primary Care Nurse Name: Fantasma Ac RN Position: [facility] SN RN Member Role: Primary Care Nurse Name: Shanda Sharp RN Position: [facility] RN Member Role: Primary Care Nurse Name: Sabi Ruiz Position: [facility] gun examiner Member Role: Mobile Home Installer Name: Vee Chand MD Position: [facility] Physician - Primary Care Member Role: PCP Address: [address] [place] [address]- [place] Telecom: Name: Ta Kolb RN Position: [facility] ED RN W/OE and Tasks Member Role: Primary Care Nurse Name: Neftaly Morley MD Position: [facility] Outreach Member Role: Lifetime Consulting Physician Address: [address] [facility] [place] [address]- [place] Telecom: Name: Eva aCmarena RN Position: [facility] DAMON Office Staff Member Role: Primary Care Nurse Name: Johnna Can CNM Position: [facility] Biomedical Equipment Technician Member Role: Primary Care Nurse Address: [address] [place] [address]- [place] Telecom: Name: Brenda Brown RN Position: [facility] SN RN Member Role: Primary Care Nurse Name: David Mcwilliams MD Position: [facility] Renal MD Member Role: Lifetime Consulting Physician Address: [address] [facility] [place] [address]- [place] Telecom: Name: Sabi Grady RN Position: [facility] RN Member Role: Primary Care Nurse Name: Sheryl Gaytan Position: [facility] RN Member Role: Primary Care Nurse Name: Gonzalo Naylor RN Position: [facility] RN Member Role: Primary Care Nurse [...]
--- OUTSIDE RECORDS SUMMARY | 2024-08-04 15:01 | XMS_ITS | Data Portability ---
Author Organization [facility], Main Office Address [address], [address] [place] [address] Care Team Providers Care Change Consultant Name Role Phone RORY TARANGO 1ST FLOOR [...] Address Organization Details Recorded Time Hyperlipid emia 75055291 Active 2019 LORNA SAUCEDO NP [address], [address], [place], [address] , [facility] 0 08:12:22 Acute urinary tract infection 148473336 Active 2019 LORNA SAUCEDO NP [address], [address], [place], [address] , [facility] 0 08:12:35 Gout 34502641 Active 2019 LORNA SAUCEDO NP [address], [address], [place], [address] , [facility] 0 08:21:44 Acute-on-c hronic renal failure 863182038 Active 2019 Inge Rodríguez MD [address], [address], [place], [address] , [facility] 0 00:35:34 Overactive urinary bladder 183731210 Active 2020 Inge Rodríguez MD [address], [address], [place], [address] , [facility] 1 00:36:36 Total knee replacemen t Active 2020 LORNA SAUCEDO NP [address], [address], [place], [address] , [facility] 1 09:22:16 Pain in left knee Active 2020 LORNA SAUCEDO NP [address], [address], [place], [address] , [facility] 1 09:22:52 Constipati on 00938597 Active 2020 Inge Rodríguez MD [address], [address], [place], [address] , [facility] 1 16:36:30 Generalize d osteoarthr itis 396831038 Active 2020 Inge Rodríguez MD [address], [address], [place], [address] , [facility] 1 23:37:24 Surgical incision wound of skin 922258989119 Active 2020 right knee LORNA SAUCEDO NP [address], [address], [place], [address] , [facility] 1 08:57:59 Pain in right knee Active 2020 LORNA SAUCEDO NP [address], [address], [place], [address] , [facility] 1 11:38:33 Chronic kidney disease stage 3A 571928427 Active 2020 Inge Rodríguez MD [address], [address], [place], [address] , [facility] 1 01:37:03 Cholecysti tis 32920203 Active 2019 Marcelina alonzo [facility] 0 13:27:09 Type 2 diabetes mellitus without complicati on 678067500 Active 2019 Marcelina alonzo [employer] [facility] 0 13:27:09 Essential hypertensi on 20392352 Active 2019 Marcelina alonzo, [facility] 0 13:27:10 Coronary arterioscl erosis 14754692 Active 2019 Marcelina alonzo, [facility] 0 13:27:12 Chronic atrial fibrillati on 774528741 Active 2019 Marcelina alonzo, [facility] 0 13:27:18 Gastroesop hageal reflux disease without esophagiti s 817751501 Active 2019 Marcelina alonzo, [facility] 0 13:27:20 Disorder of urinary bladder 44783184 Active 2019 Marcelina alonzo, [facility] 0 13:30:10 History of deep vein thrombosis 557525418 Active 2019 Marcelina alonzo, [facility] 0 14:51:52 Congestive heart failure 52745163 Active 2019 Marcelina alonzo, [facility] 0 14:51:55 Renal mass 294259920 Active 2019 Marcelina alonzo, [facility] 0 14:52:00 Asthenia 61598030 Active 2019 Marcelina alonzo, [facility] 0 14:52:02 Problem Notes None recorded. Medical Equipment None Reported. Allergies Allergen ID Allergen Name Allergen Category Reaction Reaction Severity Criticality Documentation Date Start Date Code Code System Note Provider Name and Address Organization Details Recorded Time 21003 lisinopri l medicatio n Not available Not available Not available 04/04/2019 45842 RxNorm Marcelina alonzo, [facility] 0 13:28:04 46561 Dilaudid medicatio n Not available Not available Not available 01/07/2021 32055 3 RxNorm LORNA SAUCEDO NP [address], [address], [place], [address] , [facility] 1 08:35:20 Vitals Date Recorded Body height Heart rate Respiratory rate Body temperature Oxygen saturation Oxygen saturation in Arterial blood by Pulse oximetry Systolic blood pressure Diastolic blood pressure Provider Name and Address Organization Details Last Updated DateTime 162.56 cm 58 /min 18 /min 96.8 [degF] 96 % 96 % 99 mm[Hg] 57 mm[Hg] LORNA SAUCEDO NP [address], [address], [place], [address], [facility] 11:30:38 Date Recorded Body height Heart rate Respiratory rate Body temperature Oxygen saturation Oxygen saturation in Arterial blood by Pulse oximetry Systolic blood pressure Diastolic blood pressure Provider Name and Address Organization Details Last Updated DateTime 162.56 cm 71 /min 20 /min 97.6 [degF] 96 % 96 % 113 mm[Hg] 61 mm[Hg] LORNA SAUCEDO NP [address], [address], [place], [address], [facility] 08:38:54 Date Recorded Body height Body mass index (BMI) Body weight Heart rate Respiratory rate Body temperature Oxygen saturation Oxygen saturation in Arterial blood by Pulse oximetry Systolic blood pressure Diastolic blood pressure Provider Name and Address Organization Details Last Updated DateTime 162.56 cm 26.2 kg/m2 32857.4 8 g 70 /min 16 /min 97 [degF] 96 % 96 % 112 mm[Hg] 61 mm[Hg] Inge Rodríguez MD [address], [address], [place], [address], [facility] 16:25:57 Date Recorded Body height Heart rate Respiratory rate Body temperature Oxygen saturation Oxygen saturation in Arterial blood by Pulse oximetry Systolic blood pressure Diastolic blood pressure Provider Name and Address Organization Details Last Updated DateTime 162.56 cm 70 /min 16 /min 97 [degF] 96 % 96 % 112 mm[Hg] 61 mm[Hg] LORNA SAUCEDO NP [address], [address], [place], [address], [facility] 12:16:58 Date Recorded Body height Heart rate Respiratory rate Body temperature Oxygen saturation Oxygen saturation in Arterial blood by Pulse oximetry Systolic blood pressure Diastolic blood pressure Provider Name and Address Organization Details Last Updated DateTime 1 162.56 cm 91 /min 18 /min 97 [degF] 97 % 97 % 108 mm[Hg] 61 mm[Hg] LORNA SAUCEDO, [employer]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 Yes CPR-hospital Ok, No Dialysis , Ok For Iv. Hydration, Art Nut. Information not available 01/07/2021 How Much Tobacco Do You Chew? None [id number] Information not available 01/16/2020 What Is Your Code Status? DNI Information not available 01/07/2021 Legal Guardian? No Informati on not available 12/16/2020 Do You Have A Medical Power Of Plumber Supervisor? Yes Has One, Need To Obtain Information not available 12/16/2020 What Was The Date Of Your Most Recent Tobacco Screening? 12/12/2019 [id number] Information not available 01/16/2020 Has Tobacco Cessation Counseling Been Provided? No N/a As Pt. No Longer Smokes Information not available 12/16/2020 How Many Years Have You Smoked Tobacco? 50 [id number] Information not available 01/16/2020 Sex: Female Functional Status Question Answer Note LastModified by Organizat ion Details LastModified Time Do you or have you ever used any other forms of tobacco or nicotine? No Information not available 12/16/2020 What is your level of alcohol consumption? Occasional [id number] Information not available 01/16/2020 Do you or have you ever used smokeless tobacco? Never used smokeless tobacco [id number] Information not available 01/16/2020 Do you or have you ever used e-cigarettes or vape? Never used electronic cigarettes [id number] Information not available 01/16/2020 Mental Status None recorded. Family History Nothing Reported Notes:father-lung ca Medical History No medical history recorded. Gynecological HistoryNo gynecological history recorded. Obstetrics History GPAL:G 0 P 0 0 0 0 Immunizations Vaccine Type Date Status Note Provider Nam e and Address Organization Details Recorded Time COVID-19, mRNA, LNP-S, PF, 30 mcg/0.3 mL dose 1 completed [employer] [facility], [facility] 02/19/2021 13:36:20 Influenza, high-dose, quadrivalent, PF 1 completed [employer] [facility], [facility] 03/19/2021 09:32:37 Influenza, split virus, quadrivalent, preservative 0 completed [employer] [facility] 01/12/2020 10:17:01 Pneumococcal conjugate PCV 13 5 [facility] 08/12/2020 09:42:53 pneumococcal polysaccharide PPV23 4 completed [employer] [facility], [facility] 08/12/2020 09:43:04 Tdap 4 completed [employer] [facility] 08/12/2020 09:43:14 Past Encounters Encounter ID Performer Location Encounter Start Date Encounter Closed Date Diagnosis/Indication Diagnosis SNOMED-CT Code Diagnosis ICD10 Code Diagnosis Note [id number] Marcelina Ponce NP [address] [address] 04/04/2019 13:17:17 04/04/2019 14:15:53 Cholecystitis 85865633 K80.10 recs for no surgical interventi on abd pain resolved on DC from acute care Pt without abd pain today continued on augmentin bid - no stop date- will call acute care and see if there was a stop date planned. WBC wnl monitor for pain mgmt 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 304875179 E11.9 diet controlled , not on meds for this accucheck prn Essential hypertension 43006662 I10 lasix 20mg on mon, wed, fri ADD per cards- metoprolol XL 50mg qd (hold for SBP<100), spironolac tone 12.5mg bid, and entresto 49/51mg bid (to change down to 24/26mg bid dose for consistent SBP<100) pt had been imdur in the past but cards does not want to restart this. monitor bp, labs Coronary arteriosclerosis 04226500 I25.10 atorvastat in 80mg qd metoprolol XL 50mg qd nitroglyce rin SL tab q5min for 3 doses monitor lfts prn Chronic at rial fibrillation 825215840 I48.21 on coumadin digoxin 0.125 qd on mon, wed, fri pt also on lovenox for DVT, see above metoprolol XL 50mg qd monitor for rate control, titrate coumadin prn Gastroesop hageal reflux disease without esophagitis 428679056 K21.9 pantoprazo le 40mg qd monitor for sx Disorder o f urinary bladder 86619802 N32.81 myrbetriq 50mg ER qd monitor for sx Renal mass 284574260 N28 .89 right sided is followed by nephrologi st no plan for interventi on at this time for this however CT in acute care finding of new left sided renal mass- to f/u with nephrologi st for this. History of deep vein thrombosis 448877488 Z86.718 ? DVT in acute care Pt has ordered lovenox and coumadin will continue AC therapy for now and request documentat ion from acute care regarding this US to RUE today stat monitor Asthenia 43941262 R53.1 PT/OT to eval and treat monitor for fall risk Congestive heart failure 13150178 I50.22 lasix 20mg on mon, wed, fri ADD per cards- metoprolol XL 50mg qd (hold for SBP<100), spironolac tone 12.5mg bid, and entresto 49/51mg bid (to change down to 24/26mg bid dose for consistent SBP<100) f/u with cards monitor resp status, fluid status, daily weights [id number] Marcelina Ponce NP [place] [address] [place] [address] 04/06/2019 14:48:45 04/12/2019 14:33:13 History of deep vein thrombosis 472993202 Z86.718 DVT to the RUE in acute care pt on lovenox - coumadin bridge to DC lovenox when coumadin is in therapeuti c range monitor Essential hypertension 12671456 I10 lasix 20mg on mon, wed, fri [...] continue to monitor Chronic at rial fibrillation 411975062 I48.21 on coumadin digoxin 0.125 qd on mon, wed, fri metoprolol XL 50mg qd monitor for rate control, titrate coumadin prn Osteoarthr itis of left knee joint 5746098879 46334 M17.12 pt getting lidocaine patch, apap 650mg prn, muscle rub she also sees specialist outpt and gets injections . will DC prn apap and schedule 1,000mg tid monitor for effect continue with PT/OT to maximize function as tolerated. [id number] Marcelina Ponce NP [address] [place] [address] 04/07/2019 13:58:39 04/12/2019 14:36:15 Osteoarthritis of left knee joint 4879236069 84185 M17.12 pt getting lidocaine patch to bilat knees, muscle rub started on apap 1,000mg tid yesterday with little effect, will change to prn start tramadol 25mg bid prn Pt sees specialist - will order a consult monitor for pain mgmt continue with PT/OT to maximize function as tolerated. History of deep vein thrombosis 788094200 Z86.718 DVT to the RUE in acute care pt on lovenox - coumadin bridge coumadin in therapeuti c range today, will DC lovenox. continue coumadin and titrate prn monitor Chronic at rial fibrillation 536228936 I48.21 on coumadin digoxin 0.125 qd on mon, wed, fri metoprolol XL 50mg qd monitor for rate control, titrate coumadin prn Essential hypertension 16425604 I10 stable lasix 20mg on mon, wed, fri metoprolol XL 50mg qd (hold for SBP<100), spironolac tone 12.5mg bid entresto 49/51mg bid (to change down to 24/26mg bid dose for consistent SBP<100) monitor bp, labs Cholecystitis 43891577 K 80.10 recs for no surgical interventi on abd pain resolved on DC from acute care Pt without abd pain today continued on augmentin bid - no stop date- will call acute care and see if there was a stop date planned. WBC wnl monitor for pain mgmt Congestive heart failure 90521958 I50.22 lasix 20mg on mon, wed, fri metoprolol XL 50mg qd (hold for SBP<100), spironolac tone 12.5mg bid f/u with cards monitor resp status, fluid status, daily weights Coronary arteriosclerosis 34591535 I25.10 atorvastat in 80mg qd metoprolol XL 50mg qd nitroglyce rin SL tab q5min for 3 doses monitor lfts prn Gastroesop hageal reflux disease without esophagitis 199599886 K21.9 [place]oprazo [place] 40[place] [id number] Mohsen Collins MD [address] [place] [address] 04/10/2019 11:20:58 04/12/2019 14:47:48 Acute cholecystitis 01158460 K81.0 see HPIconserv ative management monitor sxrefer back to surger for change in condition Asthenia 94956794 R53.1 PT OT eval and treatmonit or fall riskwas ambulating with walker prior Chronic at rial fibrillation 909518715 I48.21 monitor and adjust coumadinmo nitor for rate control Congestive heart failure 68947102 I50.22 monitor respirator y function and fluid statusfoll ow weightstit rate meds prn Gastroesop hageal reflux disease without esophagitis 127610241 K21.9 stable on PPImonitor for sx control Essential hypertension 24350403 I10 monitor and titrate current medsfollow ed by cardsakosua gardner with concerns [id number] Marcelina Ponce NP [address] [place] [address] 04/11/2019 13:13:45 04/18/2019 08:34:20 Acute cholecystitis 14132194 K81.0 see HPIconserv ative management monitor sxrefer back to surger for change in condition Asthenia 48682311 R53.1 PT OT eval and treatmonit or fall riskwas ambulating with walker prior Chronic at rial fibrillation 469338664 I48.21 monitor and adjust coumadinmo nitor for rate control Osteoarthr itis of left knee joint 1625237864 77612 M17.12 pt getting lidocaine patch to bilat knees, muscle rub D/C tramadol today- believe this may be causing increased confusion/ lethargy continue apap 1,000mg tid prn awaiting f/u with ortho, ?need for steroidal injections monitor for pain mgmt continue with PT/OT to maximize function as tolerated. History of deep vein thrombosis 907334090 Z86.718 DVT to the RUE in acute care swelling has improved lovenox now DCd, pt remains on coumadin continue coumadin and titrate prn monitor Essential hypertension 54735548 I10 stable lasix 20mg on wed, wed, fri metoprolol XL 50mg qd (hold for SBP<100), spironolac tone 12.5mg bid entresto 49/51mg bid (to change down to 24/26mg bid dose for consistent SBP<100) monitor bp, labs Pain in left arm 6088327 00 M79.602 see HPI pain to left arm, worse with therapy also pain to right arm however pt with confusion, unable to get full history of the pain tramadol DCd today as it may be causing increased confusion will order niharika to AMBERE qid and prn pain psych consult ordered- [...] DC of tramadol. monitor Congestive heart failure 28792593 I50.22 lasix 20mg on mon, wed, fri metoprolol XL 50mg qd (hold for SBP<100), spironolac tone 12.5mg bid f/u with cards monitor resp status, fluid status, daily weights [id number] JORDON MENENDEZ [address] [place] [address] 12/08/2019 08:07:07 12/11/2019 16:45:18 Chronic atrial fibrillation 410154777 I48.20 lasix 40 mg daily metoprolol er 50 mg hs Congestive heart failure 12831325 I50.9 lasix 40 mg daily monitor resp status Essential hypertension 75762580 I10 metoprolol 50 mg hs monitor bp Hyperlipidemia 36510014 E78.5 lipitor 80 mg daily Acute urin polina tract infection 561713245 N39.0 cefuroxime 250 mg bid to 12/11 Gout 07224970 M10.9 predisone taper norco 5/325 q4hr prn diclofenac 1% to knees [id number] MD RORY Becerril [place] [address] [place] [address] 12/12/2019 18:51:23 12/18/2019 10:30:51 Chronic atrial fibrillation 581182177 I48.21 Rate in good control on metoprolol as above. Not on AC Monitor HR Congestive heart failure 36328843 I50.22 I25.5 Z95.810 Pt. feels back to baseline. Continue lasix 40 mg qd and metoprolol 50 mg qd. Very deconditio ellis, needs PT/OT for strengthen ing and function. Monitor resp. status, fluid status, wts and labs. Essential hypertension 51684186 I10 In good control on meds as above. Monitor BP and labs Hyperlipidemia 81206097 E78.49 Continue atorvastat in 80 mg qd. Monitor labs as outpt. Acute urin polina tract infection 541401827 N30.00 Completes course of cefuroxime 250 mg BID today. Monitor for recurrence . Gout 09430480 M10.072 Doing well. Continue prednisone taper, to complete 12/17 Pain much improved, will decrease hydrocodon e/APAP 5/325 to q 6 hrs prn. Contine diclofenac 1% to knees and lidocaine patch. Monitor sxs. Acute-on-c hronic renal failure 559159951 N17.8 N18.2 BUN/cr in 07/2019 was 27/1.2, so sig worse than baseline still. Continue to avoid nephrotoxi c meds. Monitor labs. Renal consult. [id number] LORNA [facility]EDO [facility] [address] [place] [address] 12/13/2019 09:32:51 12/15/2019 09:06:00 Congestive heart failure 09949641 I50.9 lasix 40 mg daily monitor resp status Gout 15087952 M10.9 predisone taper to 12/17 norco 5/325 q4hr prn diclofenac 1% to knees 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 386925398 E11.9 diet controlled , not on meds for this accucheck prn [id number] JORDON MENENDEZ [address] [place] [address] 12/18/2019 09:46:04 12/21/2019 15:26:11 Congestive heart failure 96272553 I50.9 lasix 40 mg daily monitor resp status Essential hypertension 86163531 I10 metoprolol 50 mg hs monitor bp 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 311995708 E11.9 diet controlled , not on meds for this accucheck prn [id number] LORNA SAUCEDO NP [address] [address] 12/25/2019 10:13:38 12/27/2019 10:05:24 Gout 55813034 M10.9 predisone taper 20 mg daily ax4 days, then 10 mg daily x4 days norco 5/325 q4hr prn diclofenac 1% to knees Asthenia 24263961 R53.1 PT OT eval and treat monitor fall risk was ambulating with walker prior [id number] LORNA AGUEROALEX JORDON TARANGO [address] [place] [address] 01/01/2020 12:24:46 01/04/2020 12:53:43 Gout 90187740 M10.9 predisone taper 20 mg daily ax4 days, then 10 mg daily x4 days norco 5/325 q4hr prn diclofenac 1% to knees Asthenia 42830671 R53.1 PT OT eval and treat monitor fall risk was ambulating with walker prior [id number] LORNA AGUEROALEX JORDON [address] [address] 01/05/2020 08:36:09 01/08/2020 13:24:34 [id number] renal failure 252717703 N18.9 monitor labs Asthenia 97597977 R53.1 PT OT eval and treat monitor fall risk was ambulating with walker prior Chronic at rial fibrillation 120623210 I48.20 lasix 40 mg daily metoprolol er 50 mg hs Congestive heart failure 13999463 I50.9 lasix 40 mg daily monitor resp status Coronary arteriosclerosis 50378371 I25.10 monitor for any symptoms Essential hypertension 78480215 I10 metoprolol 50 mg hs monitor bp Gastroesop hageal reflux disease without esophagitis 333011073 K21.9 monitor for symptoms Gout 86937229 M10.9 norco 5/325 q4hr prn diclofenac 1% to knees Hyperlipidemia 77267982 E78.5 lipitor 80 mg daily 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 303934928 E11.9 diet controlled , not on meds for this accucheck prn [id number] LORNA SAUCEDO NP [address] [address] 04/19/2020 07:49:30 04/23/2020 08:17:38 Chronic atrial fibrillation 532597232 I48.20 lasix 40 mg daily metoprolol er 50 mg hs Congestive heart failure 21596178 I50.9 lasix 40 mg daily monitor resp status Coronary arteriosclerosis 92999517 I25.10 monitor for any symptoms Disorder o f urinary bladder 15614645 N32.9 myrbetriq 50 mg daily Essential hypertension 39045751 I10 metoprolol 50 mg hs monitor bp Gastroesop hageal reflux disease without esophagitis 956994337 K21.9 protonix 40 mg daily Gout 13616373 M10.9 allopurino l 100 mg daily lidocaine patch daily right knee diclofenac 1% to knees 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 979892468 E11.9 diet controlled , not on meds for this accucheck prn Hyperlipidemia 77201048 E78.5 lipitor 80 mg daily [id number] Inge Rodríguez MD [facility] [address] [place] [address] 04/22/2020 13:43:45 04/25/2020 11:37:29 Congestive heart failure 41802766 I50.22 I25.5 Z95.810 Appears euvolemic. Continue lasix 40 mg qd and metoprolol 150 mg qd. Monitor resp. status, fluid status, wts and labs. Acute-on-c hronic renal failure 834355345 N17.8 N18.2 At new baseline. Continue to avoid nephrotoxi c meds. Monitor labs. Renal consult prn. Chronic at rial fibrillation 727857187 I48.21 Rate in good control on metoprolol as above. Not on AC Monitor HR Essential hypertension 21750840 I10 In good control on meds as above. Monitor BP and labs Hyperlipidemia 06596843 E78.49 Continue atorvastat in 80 mg qd. Monitor labs as outpt. Gout 74796525 M10.072 No current sxs. Elevated uric acid inpt. Continue allopurino l 100 mg qd. and colchicine prn. Monitor sxs. and recheck uric acid prn. Coronary arteriosclerosis 52499184 I25.10 monitor for any symptoms Gastroesop hageal reflux disease without esophagitis 600602822 K21.9 No current sxs. Continue pantoprazo le 40 mg qd. Monitor for sxs. 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 928499304 E11.9 diet controlled , not on meds for this Check accuchecks prn Bilateral knee pain 1187 797984 5186741 M25.561 M25.562 M15.0 Scheduled for TKR on [...] function. Monitor pain relief. Overactive urinary bladder 651644025 N32.81 Continue myrbetriq 50 mg qd. monitor sxs. [id number] JORDON MENENDEZ [address] [place] [address] [place] [address] 04/29/2020 07:38:33 05/01/2020 11:27:39 Acute urinary tract infection 336924544 N39.0 recovered Acute-on-c hronic renal failure 930276072 N18.9 monitor labs Asthenia 54220195 R53.1 PT OT eval and treat monitor fall risk was ambulating with walker prior Cholecystitis 49948276 K 81.9 recovered Chronic at rial fibrillation 190324010 I48.20 lasix 40 mg daily metoprolol er 50 mg hs Congestive heart failure 65331669 I50.9 lasix 40 mg daily monitor resp status Coronary arteriosclerosis 45693148 I25.10 monitor for any symptoms Disorder o f urinary bladder 31208538 N32.9 myrbetriq 50 mg daily Essential hypertension 08887475 I10 metoprolol 150 mg hs monitor bp Gastroesop hageal reflux disease without esophagitis 839989514 K21.9 protonix 40 mg dailytums q4 hr prn Gout 37942400 M10.9 allopurino l 100 mg daily lidocaine patch daily right knee diclofenac 1% to knees bid cholchecin e 0.6 2-tabs the 0.6 mg qd prn vicodin 5/325 mg q4 hr prn History of deep vein thrombosis 100092306 Z86.718 resolved Hyperlipidemia 96351216 E78.5 lipitor 80 mg daily Overactive urinary bladder 270072027 N32.81 myrbetriq 50 mg qd. monitor sxs. Renal mass 738616317 N28 .89 f/u with nephrologi st 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 401132471 E11.9 diet controlled , not on meds for this accucheck prn [id number] LORNA SAUCEDO NP [address] [address] [address] 05/31/2020 07:34:55 06/05/2020 10:23:00 Type 2 diabetes mellitus without complication 942496925 E11.9 diet controlled , not on meds for this accucheck prn Renal mass 326353534 N28 .89 f/u with nephrologi st Overactive urinary bladder 054548633 N32.81 myrbetriq 50 mg qd.monitor sxs. Hyperlipidemia 26510372 E78.5 atorvastat in 80 mg daily History of deep vein thrombosis 273476282 Z86.718 xarelto 10 mg daily Gout 95809600 M10.9 allopurino l 100 mg daily lidocaine patch daily right knee diclofenac 1% to knees bid cholchecin e 0.6 2-tabs the 0.6 mg qd prn oxycodone 5 mg q4 hrprn tramadol 50 mg q4 hr prn Gastroesop hageal reflux disease without esophagitis 874245964 K21.9 protonix 40 mg dailytums q4 hr prn Essential hypertension 37264186 I10 metoprolol er 100 mg hs monitor bp Coronary arteriosclerosis 16796049 I25.10 monitor for any symptoms Congestive heart failure 72844313 I50.9 lasix 40 mg daily monitor resp status Chronic at rial fibrillation 774804778 I48.20 lasix 40 mg daily metoprolol er 50 mg hs Pain in left knee 148231 6878 58736 M25.562 oxycodone 5 mg q4 hrprn tramadol 50 mg q4 hr prn [id number] MD RORY Becerril SUKHDEEP [address] [facility] [address] [place], SU[place]EP [address] 06/03/2020 13:11:50 06/11/2020 14:52:39 Generalized osteoarthritis 503470852 M15.0 Z96.652 S/P TKR on 05/23. Needs [...] Monitor pain relief. Bilateral knee pain 1187 636508 1518315 M25.561 M25.562 M15.0 With continued right knee pain also. Continue PT/OT as above. Monitor pain relief. Congestive heart failure 00308969 I50.22 I25.5 Z95.810 Appears euvolemic. Continue lasix 40 mg qd and metoprolol 100 mg qd. Monitor resp. status, fluid status, wts and labs. Acute-on-c hronic renal failure 743847512 N17.8 N18.2 Stable at new baseline. Continue to avoid nephrotoxi c meds. Monitor labs. Renal consult prn. Chronic at rial fibrillation 640054474 I48.21 Rate in good control on metoprolol 100 mg qd Now on rivaroxaba n for DVT prophylaxi s, may continue chcf for afib. Monitor HR Essential hypertension 73828662 I10 In good control on meds as above. Monitor BP and labs Hyperlipidemia 03363492 E78.49 Continue atorvastat in 80 mg qd. Monitor labs as outpt. Gout 60317149 M10.072 No current sxs., but with elevated uric acid inpt. Continue allopurino l 100 mg qd. and use colchicine prn sxs. Monitor sxs. and recheck uric acid prn. Coronary arteriosclerosis 63779389 I25.10 Continue meds as above. Monitor for any symptoms F/U with cardio as planned. Gastroesop hageal reflux disease without esophagitis 944739117 K21.9 No current sxs. Continue pantoprazo le 40 mg qd. Monitor for sxs. 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 Monitor accuchecks prn Overactive urinary bladder 144467799 N32.81 Continue myrbetriq 50 mg qd. monitor sxs. Constipation 14444138 K5 9.03 No BM since transfer here. Says she doesn't usually have problems at home, so likely due to meds and immobility . Will continue colace 100 mg BID and give dose of MOM tonight and consider other meds if no BM by tomorrow. Monitor bowel function. [id number] JORDON MENENDEZ [address] [place] [address] 06/04/2020 08:11:50 06/07/2020 13:33:34 Pain in left knee 0472608186 25939 M25.562 oxycodone 5 mg q4 hrprn tramadol 50 mg q4 hr prnPT OT eval and treat Congestive heart failure 33509819 I50.9 lasix 40 mg daily monitor resp status [id number] JORDON MENENDEZ SUKHDEEP [address] [place] [address] 5 06/07/2020 11:43:39 06/11/2020 15:04:18 Pain in left knee 1541821126 73345 M25.562 oxycodone 5 mg q4 hr prn tramadol 50 mg q4 hr prn PT OT eval and treat Gastroesop hageal reflux disease without esophagitis 209253311 K21.9 protonix 40 mg dailytums q4 hr prn History of deep vein thrombosis 272400649 Z86.718 xarelto 10 mg daily [id number] JORDON MENENDEZ [address] [place] [address] 5 06/10/2020 15:29:11 06/13/2020 15:30:41 Pain in left knee 5704717934 10794 M25.562 oxycodone 5 mg q4 hr prn, 7.5 mg am tramadol 50 mg q4 hr prn PT OT eval and treat Generalize d osteoarthritis 312821951 M15.9 Needs PT/OT for strengthen ing, balance, gait training, safety and function. oxycodone 7.5 mg qAM and 5 mg q 4 hrs prn. APAP 1000 mg TID. tramadol 50 mg q 4 hrs prn rivaroxaba n 10 mg qd for DVT prophylaxi s. Monitor pain relief [id number] LORNA SAUCEDO NP [facility] [address] [address] 06/14/2020 12:44:17 06/17/2020 16:30:53 Generalized osteoarthritis M15.9 Needs PT/OT for strengthen ing, balance, gait training, safety and function. oxycodone 7.5 mg qAM and 5 mg q 4 hrs prn. APAP 1000 mg TID. tramadol 50 mg q 4 hrs prn rivaroxaba n 10 mg qd for DVT prophylaxi s. Monitor pain relief Pain in left knee 641547 4446 05561 M25.562 oxycodone 5 mg q4 hr prn, 7.5 mg am tramadol 50 mg q4 hr prn PT OT eval and treat [id number] JORDON MENENDEZ [address] [place] [address] 5 06/25/2020 08:29:30 06/27/2020 09:37:45 Yevzo-ma-kboeasb renal failure 034038226 N18.9 monitor labs Asthenia 38129925 R53.1 PT OT eval and treat monitor fall risk was ambulating with walker prior Cholecystitis 82432027 K 81.9 recovered Chronic at rial fibrillation 874939813 I48.20 lasix 40 mg daily metoprolol er 50 mg hs Congestive heart failure 91671576 I50.9 lasix 40 mg daily monitor resp status Constipation 03752064 K5 9.00 miralax daily Coronary arteriosclerosis 26495858 I25.10 monitor for any symptoms Generalize d osteoarthritis 728098849 M15.9 Needs PT/OT for strengthen ing, balance, gait training, safety and function. oxycodone 7.5 mg prn. APAP 1000 mg TID. rivaroxaba n 10 mg qd for DVT prophylaxi s. Monitor pain relief Disorder o f urinary bladder 40585249 N32.9 myrbetriq 50 mg daily Essential hypertension 11031830 I10 metoprolol er 100 mg hs monitor bp Gastroesop hageal reflux disease without esophagitis 929855366 K21.9 protonix 40 mg dailytums q4 hr prn Gout 55170634 M10.9 allopurino l 100 mg daily lidocaine patch daily right knee diclofenac 1% to knees bid cholchecin e 0.6 2-tabs the 0.6 mg qd prn oxycodone 7.5 mg q4 hrprn tramadol 50 mg q4 hr prn Hyperlipidemia 40387281 E78.5 atorvastat in 80 mg daily Pain in left knee 306992 2684 67116 M25.562 oxycodone 7.5 mg q4 hr prn tramadol 50 mg q4 hr prn PT OT eval and treat 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 005087387 E11.9 diet controlled , not on meds for this accucheck prn [id number] JORDON MENENDEZ [address] [place] [address] 5 07/02/2020 07:59:13 07/04/2020 13:33:53 Acute urinary tract infection 907121216 N39.0 recovered Acute-on-c hronic renal failure 599635755 N18.9 monitor labs Asthenia 61014437 R53.1 PT OT eval and treat monitor fall risk was ambulating with walker prior Cholecystitis 70706370 K 81.9 recovered Chronic at rial fibrillation 672801270 I48.20 lasix 40 mg daily metoprolol er 100 mg hs Congestive heart failure 33011953 I50.9 lasix 40 mg daily monitor resp status Constipation 28331506 K5 9.00 miralax daily Coronary arteriosclerosis 31693064 I25.10 monitor for any symptoms Generalize d osteoarthritis 644531340 M15.9 Needs PT/OT for strengthen ing, balance, gait training, safety and function. APAP 1000 mg TID. rivaroxaba n 10 mg qd for DVT prophylaxi s. Monitor pain relief Disorder o f urinary bladder 63365684 N32.9 myrbetriq 50 mg daily Essential hypertension 22493926 I10 metoprolol er 100 mg hs monitor bp Gastroesop hageal reflux disease without esophagitis 243715189 K21.9 protonix 40 mg dailytums q4 hr prn Gout 48031484 M10.9 allopurino l 100 mg daily lidocaine patch daily right knee diclofenac 1% to knees bid cholchecin e 0.6 2-tabs the 0.6 mg qd prn History of deep vein thrombosis 099359816 Z86.718 xarelto 10 mg daily Hyperlipidemia 27491434 E78.5 atorvastat in 80 mg daily Overactive urinary bladder 775422613 N32.81 myrbetriq 50 mg qd.monitor sxs. Pain in left knee 787428 2364 07959 M25.562 lidoderm patch daily prn PT OT eval and treat Renal mass 686685872 N28 .89 f/u with nephrologi st 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 772602341 E11.9 diet controlled , not on meds for this accucheck prn [id number] JORDON MENENDEZ [address] [place] [address] 5 12/03/2020 08:55:59 12/10/2020 09:17:00 Generalized osteoarthritis 819986558 M15.9 Needs PT/OT for strengthen ing, balance, gait training, safety and function tizanadine 2 mg tid tramadol 50-100 mg q6hr prn x 7 days. APAP 650 mg q6hr . rivaroxaba n 10 mg qd for DVT prophylaxi s. Monitor pain relief Surgical i ncision wound of skin 0989120991 00 R23.8 monitor for any signs of infectionf u NEOS 12/10 as planned Acute-on-c hronic renal failure 602759649 N18.9 monitor labs Asthenia 04950491 R53.1 PT OT eval and treat monitor fall risk was ambulating with walker prior Cholecystitis 10538641 K 81.9 recovered Chronic at rial fibrillation 576488056 I48.20 lasix 40 mg am, 20 mg pm, Fri, Sat, Sun metoprolol er 100 mg hs Congestive heart failure 84885689 I50.9 lasix 40 mg am, 20 mg pm, Fri, Sat, Sun monitor resp status Constipation 40883095 K5 9.00 miralax daily prncolace bid Coronary arteriosclerosis 08731686 I25.10 monitor for any symptoms Disorder o f urinary bladder 42844461 N32.9 myrbetriq 50 mg daily Essential hypertension 03445811 I10 metoprolol er 100 mg hs monitor bp Gastroesop hageal reflux disease without esophagitis 334129380 K21.9 protonix 40 mg dailytums q4 hr prn Gout 08968925 M10.9 allopurino l 100 mg daily lidocaine patch daily right knee diclofena c 1% to knees bid prn cholchecin e 0.6 2-tabs qd prn Hyperlipidemia 45551100 E78.5 atorvastat in 80 mg daily Overactive urinary bladder 299224054 N32.81 myrbetriq 50 mg qd.monitor sxs. 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 612126579 E11.9 diet controlled , not on meds for this accucheck prn [id number] JORDON MENENDEZ SUKHDEEP [address] [place] [address] 5 12/04/2020 11:19:28 12/06/2020 13:53:27 Asthenia 48729890 R53.1 PT OT eval and treat monitor fall risk was ambulating with walker prior Surgical i ncision wound of skin 6485126976 00 R23.8 monitor for any signs of infectionf u NEOS 12/10 as planned Pain in right knee 25566 87486 86819 M25.561 tramadol 50 mg q6hr scheduledt izanadine 4 mg [id number] one 5 g q6hr prnknee immobilize r at night only [id number] LORNA SAUCEDO NP [address] [address] 12/11/2020 08:21:46 12/13/2020 15:18:13 Pain in right knee 7893381591 25575 M25.561 tramadol 50 mg q6hr scheduledt izanadine 2 mg q9oipghktn one 5-10 mg q4hr prnknee immobilize r Surgical i ncision wound of skin 3555523416 00 R23.8 monitor for any signs of infectionf /u NEOS 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 170567394 E11.9 diet controlled , not on meds for this accucheck prn Overactive urinary bladder 841214916 N32.81 myrbetriq 50 mg qd.monitor sxs. Hyperlipidemia 09493494 E78.5 atorvastat in 80 mg daily History of deep vein thrombosis 909447245 Z86.718 xarelto 10 mg daily Gout 13855859 M10.9 allopurino l 100 mg daily lidocaine patch daily right knee diclofenac 1% to knees bid prn cholchecin e 0.6 2-tabs qd prn Gastroesop hageal reflux disease without esophagitis 364941984 K21.9 protonix 40 mg dailytums q4 hr prn Essential hypertension 17203993 I10 metoprolol er 100 mg hs monitor bp Generalize d osteoarthritis 068758336 M15.9 Needs PT/OT for strengthen ing, balance, gait training, safety and function tizanadine 2 mg tid tramadol 50 mg qid -100 mg q6hr prn APAP 650 mg q6hr . rivaroxaba n 10 mg qd for DVT prophylaxi s. Monitor pain relief Coronary arteriosclerosis 65618057 I25.10 monitor for any symptoms Constipation 60207606 K5 9.00 miralax daily prncolace bid Congestive heart failure 89494437 I50.9 lasix 40 mg am monitor resp status Chronic at rial fibrillation 496517733 I48.20 lasix 40 mg am metoprolol er 100 mg hs Asthenia 63974227 R53.1 PT OT eval and treat monitor fall risk was ambulating with walker prior Acute-on-c hronic renal failure 777661070 N18.9 monitor labs [id number] MD RORY Becerril [address] [place] [address] [place] [address] 12/12/2020 16:13:14 12/17/2020 11:12:37 Pain in right knee 0787268838 65918 M25.561 Still with sig. pain, but relieved [...] 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 855063050 E11.9 Diet controlled .Monitor sugars prn. Overactive urinary bladder 038849037 N32.81 Continue myrbetriq 50 mg qd.Monitor urinary function. Hyperlipidemia 43886946 E78.49 Continue atorvastat in 80 mg qd.Monitor labs as outpt. History of deep vein thrombosis 590478175 Z86.718 Currently on Xarelto for DVT prophylaxi s. 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 Gout 08385776 M10.09 Continue allopurino l 100 mg qd and colchicine 0.6 2 tabs qd prn for flares.Mon itro for sxs. Gastroesop hageal reflux disease without esophagitis 563996046 K21.9 No current sxs.Contin ue pantoprazo le 40 mg qd and tums q 4 hrs prnMonitor for sxs. Essential hypertension 96972753 I10 Good control on metoprolol ER 100 mg qd..Monito r BP and labs. Generalize d osteoarthritis 018342369 M15.0 Continue pain meds as above.Lorna tor sxs. Coronary arteriosclerosis 68485969 I25.10 With sig. hx.Continu e metoprolol as above.F/U with cardio as planned. Constipation 45141809 K5 9.09 miralax daily prncolace bid Congestive heart failure 22187397 I50.[address]Appe ars euvolemic. Continue metoprolol 100 mg qd and lasix 40 mg amMonitor resp. status, fluid status, wts and labs. Chronic at rial fibrillation 823633574 I48.0 Rate in good control on metoprolol ER 100 mg qd.Not on chronic AC due to GI bleed. Currently on Xarelto for 30 days post-op.Mo evon HR and bleeding risk. Chronic ki dney disease stage 3A 165723449 N18.31 Stable at baseline.C ontinue to avoid nephrotoxi c meds as able.Monit or labs.Renal consult prn. [id number] LORNA SAUCEDO NP [address] [address] 12/13/2020 12:39:28 12/17/2020 12:46:43 Pain in right knee 8042312967 55251 M25.561 tramadol 50 mg q6hr scheduledt izanadine 2 mg v9zzxygfmg one 5-10 mg q4hr prnknee immobilize r Surgical i ncision wound of skin 9993395363 00 R23.8 monitor for any signs of infectionf /u NEOS [id number] LORNA SAUCEDO NP [address] [address] 12/16/2020 10:18:46 12/17/2020 13:39:35 Asthenia 53509859 R53.1 PT OT eval and treat monitor fall risk was ambulating with walker prior Pain in right knee 48808 01410 88860 M25.561 tramadol 50 mg q6hr scheduledt izanadine 2 mg x0sbunrupb one 5-10 mg q4hr prnknee immobilize r [id number] LORNA SAUCEDO NP [address] [address] 5 12/20/2020 12:36:08 12/24/2020 11:10:32 Gout 24734755 M10.09 allopurino l 100 mg daily lidocaine patch daily right knee diclofenac 1% to knees bid prn cholchecin e 0.6 2-tabs qd prn Pain in right knee 29801 78073 22842 M25.561 tramadol 50 mg q6hr scheduledt izanadine 2 mg k9xisdoodj one 5-10 mg q4hr prnknee immobilize r Surgical i ncision wound of skin 0920518578 00 R23.8 monitor for any signs of infectionf /u NEOS [id number] LORNA SAUCEDO NP [address] [address] 12/23/2020 08:51:19 12/25/2020 15:10:59 Generalized osteoarthritis 317520533 M15.0 Needs PT/OT for strengthen ing, balance, gait training, safety and function tizanadine 2 mg tid tramadol 50 mg qid -100 mg q6hr prn APAP 650 mg q6hr . rivaroxaba n 10 mg qd for DVT prophylaxi s. Monitor pain relief Surgical i ncision wound of skin 9312239893 00 R23.8 monitor for any signs of infectionf /u NEOS Pain in right knee 20328 74843 05612 M25.561 tramadol 50 mg q6hr scheduledt izanadine 2 mg x4wyspkhyz one 5-10 mg q4hr prnknee immobilize r Gout 12583921 M10.09 allopurino l 100 mg daily lidocaine patch daily right knee diclofenac 1% to knees bid prn cholchecin e 0.6 2-tabs qd prn- hold during naproxynna proxyn 500 mg bid x 7 days [id number] JORDON MENENDEZ [address] [place] [address] 12/27/2020 11:12:53 12/30/2020 15:10:57 Surgical incision wound of skin 1340889793 00 R23.8 monitor for any signs of infectionf /u NEOS Pain in right knee 35773 49137 13056 M25.561 tramadol 50 mg q6hr scheduledt izanadine 2 mg h2rrtdpbls one 5-10 mg q4hr prn [id number] JORDON MENENDEZ SUKHDEEP [address] [place] [address] 12/30/2020 10:50:14 01/01/2021 14:58:34 Surgical incision wound of skin 7166514811 00 R23.8 monitor for any signs of infectionf /u NEOS Pain in right knee 27957 57016 57092 M25.561 tramadol 50 mg q6hr scheduled- change to q8 hr for 7 daystizana dine 2 mg e1pmvnpkoz one 5-10 mg q4hr prn--d/c the 10 mg dose Asthenia 11819839 R53.1 PT OT eval and treat monitor fall risk was ambulating with walker prior [id number] JORDON MENENDEZ [address] [place] [address] 12/31/2020 10:59:03 01/01/2021 15:38:08 Zksxk-dr-rijdirq renal failure 306206975 N18.9 monitor labssend to ED for JOSE CARLOS [id number] JORDON MENENDEZ 36 [place] [address] 01/07/2021 08:34:28 01/09/2021 14:53:44 Fxroo-sw-ucdegjs renal failure 912519490 N18.9 monitor labssend to ED for JOSE CARLOS Asthenia 56211786 R53.1 PT OT eval and treat monitor fall risk was ambulating with walker prior Chronic at rial fibrillation 365993146 I48.0 lasix 40 mg daily, 20 mg Fr/Sa/Ching metoprolol er 100 mg hs Chronic ki dney disease stage 3A 200654472 N18.31 monitor labs and urine output Congestive heart failure 72199583 I50.22 lasix 40 mg daily, 20 mg Fr/Sa/Ching monitor resp status Constipation 52317291 K5 9.09 miralax daily prncolace bid Generalize d osteoarthritis 316741015 M15.0 Needs PT/OT for strengthen ing, balance, gait training, safety and function APAP 650 mg q6hr .oxycodone 5 mg q4hr prnMonitor pain relief Coronary arteriosclerosis 63203165 I25.10 monitor for any symptoms Disorder o f urinary bladder 27342029 N32.9 myrbetriq 50 mg daily Essential hypertension 77366948 I10 metoprolol er 100 mg hs monitor bp Gastroesop hageal reflux disease without esophagitis 351296122 K21.9 protonix 40 mg dailytums q4 hr prn Gout 75989543 M10.09 allopurino l 100 mg daily diclofenac 1% to knees bid prn cholchecin e 0.6 2-tabs qd prn History of deep vein thrombosis 145838770 Z86.718 monitor Hyperlipidemia 62218238 E78.49 atorvastat in 80 mg daily Overactive urinary bladder 458147410 N32.81 myrbetriq 50 mg qd.monitor sxs. Pain in right knee 06367 16100 29036 M25.561 oxycodone 5 mg q4hr prn Renal mass 528256978 N28 .89 f/u with nephrologi stmonitor labs Surgical i ncision wound of skin 2871011526 00 R23.8 monitor for any signs of infectionf /u NEOS 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 134161468 E11.9 diet controlled , not on meds for this accucheck prnlispro sliding scale [id number] Inge Rodríguez MD [address] [place] [address] 01/09/2021 15:45:40 01/14/2021 12:02:05 Efyyg-qz-rnbjmbm renal failure 205864501 N18.9 Almost back to baseline.C ontinue to avoid nephrotoxi c meds as able.Ginette nue to encourage po fluids.Mon itor labs.Renal f/u as planned. Asthenia 97894708 R53.1 Continues to be very deconditio ellis, due to multiple complicati ons since original admission. Needs PT/OT for strengthen ing, balance, gait training, safety and function.C ontinue fall precaution s.Monitor for safety. Chronic at rial fibrillation 926029589 I48.0 Rate in good control on metoprolol ER 100 mg qd.Not on chronic AC due to hx of GI bleed.Lorna tor HR and bleeding risk. Chronic ki dney disease stage 3A 295248669 N18.31 As above. Congestive heart failure 46793876 I50.[address]Appe ars euvolemic. Continue metoprolol 100 mg qd and lasix 40 mg qam with extra 20 mg at 2pm on Fr/Sa/SuMo nitor resp. status, fluid status, wts and labs. Constipation 79944843 K5 9.09 Continue bowel meds as ordered. Generalize d osteoarthritis 443092220 M15.0 Continue APAP 650 mg q 6 hrs prn, and oxycodone 5 mg q 4 hrs prnPT/OT as above.Lorna tor pain relief Coronary arteriosclerosis 18124321 I25.10 No current sxs.Contin eu meds as above.Lorna tor for sxs.F/U with cardio as planned. Renal mass 291132987 N28 .89 f/u with nephrologi stmonitor labs Surgical i ncision wound of skin 3790124586 00 R23.8 monitor for any signs of infectionf /u NEOS 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 362143174 E11.9 diet controlled , not on meds for this accucheck prnlispro sliding scale Pain in right knee 06070 42786 59286 M25.561 Still with sig. pain, but relieved [...] with ortho as planned. Overactive urinary bladder 341656386 N32.81 Continue myrbetriq 50 mg qd.Monitor urinary function. Hyperlipidemia 88478422 E78.49 Continue atorvastat in 80 mg qd.Monitor labs as outpt. History of deep vein thrombosis 737609104 Z86.718 No longer on ACMonitor for sxs. Gout 61698352 M10.09 Continue allopurino l 100 mg qd and colchicine 0.6 2 tabs qd prn for flares. Monitor for sxs. Gastroesop hageal reflux disease without esophagitis 148803437 K21.9 No current sxs.Contin ue pantoprazo le 40 mg qd and tums q 4 hrs prnMonitor for sxs. Essential hypertension 80289630 I10 Good control on meds as above.Lorna tor BP and labs. [id number] JORDON MENENDEZ [address] [facility] [place] [address] 01/10/2021 12:10:44 01/14/2021 12:05:06 Pain in right knee 5129345175 74316 M25.561 oxycodone 5 mg q4hr prn Surgical i ncision wound of skin 9717360991 00 R23.8 monitor for any signs of infectionf /u NEOS Asthenia 08102177 R53.1 PT OT eval and treat monitor fall risk was ambulating with walker prior [id number] JORDON MENENDEZ SUKHDEEP [address] [facility] [address] [place] [address] 01/15/2021 08:23:33 01/17/2021 15:03:46 Surgical incision wound of skin 1411638806 00 R23.8 monitor for any signs of infectionf /u NEOS Pain in right knee 73481 73669 96031 M25.561 tylenol prn Acute-on-c hronic renal failure 096242115 N18.9 monitor labsimprov ing kidney function Asthenia 93118571 R53.1 PT OT eval and treat monitor fall risk was ambulating with walker prior Chronic at rial fibrillation 460270791 I48.0 lasix 40 mg daily, 20 mg Fr/Sa/Ching metoprolol er 100 mg hs Chronic ki dney disease stage 3A 254805531 N18.31 monitor labs and urine output Congestive heart failure 78748611 I50.22 lasix 40 mg daily, 20 mg Fr/Sa/Ching monitor resp status Constipation 64456021 K5 9.09 miralax daily prncolace bid Coronary arteriosclerosis 32266501 I25.10 monitor for any symptoms Generalize d osteoarthritis 602819354 M15.0 Needs PT/OT for strengthen ing, balance, gait training, safety and function APAP 650 mg q6hr . Monitor pain relief Disorder o f urinary bladder 92766511 N32.9 myrbetriq 50 mg daily Essential hypertension 89743852 I10 metoprolol er 100 mg hs monitor bp Gastroesop hageal reflux disease without esophagitis 618520851 K21.9 protonix 40 mg dailytums q4 hr prn Gout 30679247 M10.09 allopurino l 100 mg daily diclofenac 1% to knees bid prn cholchecin e 0.6 2-tabs qd prnnaproxy n 500 mg bid for 5 days to 01/19 History of deep vein thrombosis 418845086 Z86.718 monitor Hyperlipidemia 86714670 E78.49 atorvastat in 80 mg daily Overactive urinary bladder 033038855 N32.81 myrbetriq 50 mg qd.monitor sxs. 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 367064092 E11.9 diet controlled , not on meds for this accucheck prnlispro sliding scale Renal mass 326235917 N28 .89 f/u with nephrologi stmonitor labs [...] - FOR LIFE (MEDICARE SUPPLEMENT) Margo Leoncio [id number] [facility] MED[facility]ARE B-[facility]: [facility] [place] Leoncio [id number] [facility] 01/07/2021 2 WPS - FOR LIFE (MEDICARE SUPPLEMENT) [place] Leoncio [id number] [facility] 01/07/2021 1 MEDICARE B-[place]: [employer] Margo Marvel Leoncio [id number] [place] [facility] 01/09/2021 2 WPS - FOR LIFE (MEDICARE SUPPLEMENT) [place] Leoncio [id number] [facility] 01/09/2021 1 MEDICARE B-[place]: [facility] [employer] [facility] [place] Leoncio [id number] [facility] 01/10/2021 2 WPS - FOR LIFE (MEDICARE SUPPLEMENT) [place] Leoncio [id number] [facility] 01/10/2021 1 MEDICARE B-MA: [facility] Margo Marvel Leoncio [id number] [facility] Fang 01/15/2021 2 WPS - FOR LIFE (MEDICARE SUPPLEMENT) [place] [id number] [facility] [facility] 01/15/2021 1 MEDICARE B-[place]: NATIONAL GOVERNMENT SERVICES [place] Marvel Leoncio [id number] Margo Fang Notes Date Note Type Note Provider Name and Address Organization Details Recorded Time 12/31/2020 text/html seen today for a cute rounding visit, CAOx3 ambulating in the [place]ant with PT and walker, contact guard, ambulating well, she denies any distress or discomfort, labs show JOSE CARLOS of unknown cause-possible moderate po intake, will send her to hospital for further eval LORNA SAUCEDO, JORDON [address], [address], [place], [address], [employer] [facility] 12/31/2020 11:35:16 01/07/2021 text/html seen today [...] cms, no nausea, ate well at breakfast, [employer] aware of monitoring how many voids and charting this LORNA SAUCEDO NP [address], [address], [place], [address], [employer] [facility] 01/08/2021 10:18:32 01/09/2021 text/html This is [...] obesity, and anemia. Inge Rodríguez MD [address], [address], [place], [address], [facility] 01/13/2021 20:29:24 01/10/2021 text/html seen today for a cute rounding visit, CAOx3 ambulating in the PT gym, gait more steady, right knee swelling almost gone, incision healed with a couple of small scabs, good cms to leg, she assures me she is voiding well and drinking well, staff report she has been voiding LORNA SAUCEDO NP [address], [address], [place], [address], [facility] 01/10/2021 12:19:50 01/15/2021 text/html seen today for [...] cms, no nausea, ate well at breakfast, [employer] aware of monitoring how many voids and charting this, she is a supervision with ambulation and walker, kidney function is slowly improving LORNA SAUCEDO NP [address], [address], [place], [address], [facility] - [facility] 01/15/2021 11:11:26 OBGyn Episode No OBEpisode recorded.
--- OUTSIDE RECORDS SUMMARY | 2024-08-04 15:01 | XMS_ITS | Clinical Summary ---
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
--- OUTSIDE RECORDS SUMMARY | 2024-08-04 15:01 | XMS_ITS | Clinical Summary ---
Author Organization [facility] Address [address] [place] [phone] Phone Care Team Providers Care Cosmetologist Name Role Phone Vee Chand MD Primary [...] Description 06/13/2024 1:45 PM EDT Office Visit [facility] Hematology Oncology [address] [place] [phone] Jose E Mckeon MD Macrocytic anemia (Primary [...] Description 07/03/2025 3:00 PM EDT Office Visit [facility] Hematology Oncology [address] [place] [phone] Jose E Mckeon MD [address] [place] [address] Health Maintenance Due Date Last Done Comments [...] CBC auto differential (06/08/2024 1:20 PM EDT) [facility] Signature WBC 3.3(L) 4.8 - 10.8 [...] % LAB HEMETOLOGY METHOD 06/08/2024 1:45 PM [facility] Lymphocytes Relative 37.8 % LAB HEMETOLOGY METHOD [facility]2024 1:[facility] Monocytes Relative 11.5 % LAB HEMETOLOGY [...] Final R esult [facility] [address] [place] [address], * (ABNORMAL) Reticulocyte count (06/08/2024 1:20 PM [...] EDT 06/08/2024 1:36 PM EDT Jose E Mkceon MD LAB BLOOD ORDERABLES Final R esult Performing Organization Address City/[facility]/ZIP Co de Phone Number [facility] [address] [place] [address], [place] [phone] * Haptoglobin (06/08/2024 1:20 PM EDT) Haptoglobin 102 16 - 200 mg/dL LAB CHEMISTRY METHOD 06/08/2024 5:21 PM EDT [facility] Blood Venous blood specimen / Unknown Venipuncture / Unknown 06/08/2024 1:20 PM EDT 06/08/2024 1:36 PM EDT Jose E Mckeon MD LAB BLOOD ORDERABLES Final R esult [facility] [address] [place] [address], [place] [phone] * (ABNORMAL) Vitamin B12 (06/08/2024 1:20 PM EDT) Vitamin B-12 >2,000(H) 250 - 900 pcg/mL LAB CHEMISTRY METHOD 06/08/2024 5:44 PM EDT [facility] Blood Venous blood specimen / Unknown Venipuncture / Unknown 06/08/2024 1:20 PM EDT 06/08/2024 1:36 PM EDT us Jose E Mckeon MD LAB BLOOD ORDERABLES Final R esult [facility] [address] [place] [address], [place] [phone] * Miscellaneous reference lab test (05/23/2024) Only the most recent of2 resultswithin the time period is included. us Provider On[facility] LAB BLOOD ORDERABLES Final Re sult from Last 3 Months Insurance MEDICARE [facility] Advance Directives Documents on File Type Date Recorded Patient Lease Purchase Driver Expl anation Health Care Decision (hx) 07/15/2019 AD DAVILA DIRECTIVE Health Care Decision (hx) 06/17/2019 AD DAVILA DIRECTIVE Health Care Decision (hx) 06/08/2019 AD DAVILA DIRECTIVE Care Teams Cosmetologist Relationship Specialty Start Date End Date Vee Chand MD [address] [place] [address] PCP - General Internal Medicine 08/18/19
--- OUTSIDE RECORDS SUMMARY | 2024-08-04 15:01 | XMS_ITS | Continuity of Care Document ---
Author Organization [facility] Address [address] [place] [address]- Support Name Relationship Address Phone ANI PEREZ [...] M Personal Relationship Unknown Unavai lable TORRES, HCASE Personal Relationship Unknown Unav ailable TORRES, CHASE [...] Unknown U navailable Care Team Providers Care Infrastructure Administrator Name Role Phone Mannie MUÑOZ, Vee Primary Care Physician Encounter [facility] Date(s): 06/30/24 - 07/30/24 [facility] [address] [place] [address] Encounter Type: Triage Allergies, Adverse Reactions, Alerts [...] virus vaccine, inactivated 3 01/21/07 Gi tobi [id number] 12y+ bivalent booster vax 01/28/22 Recorded SARS-CoV-2 (COVID-19) mRNA BNT-162b2 vac 02/04/21 Recorded SARS-CoV-2 (COVID-19) Ad26 vaccine 06/19/20 Record ed pneumococcal 13-valent vaccine 08/09/14 Given pneumococcal 13-valent vaccine 08/09/14 Given tetanus/diphtheria/pertussis, acel(Tdap) 02/12/14 Given Fluzone (oldterm) 4 12/26/13 Given pneumococcal 23-valent vaccine 05/06/13 Given Influenza Virus Vaccine (oldterm) 5 05/15/08 Given Pneumococcal Vaccine (oldterm) 6 10/29/05 Given 1Result Comment: [facility] [id number] 2Result Comment: [facility] [id number] 3Admin Note: VIS GIVEN 4Admin Note: CDC VIS reviewed 5Admin Note: vis given 6Admin Note: vis given Medications Albuterol (Eqv-ProAir HFA) 90 mcg/inh inhalation aerosol 1 inhalation = 90 mcg, Inhalation, Every 4 hours, PRN as needed for shortness of breath or wheezing, # 6.7 Gm, 0 Refills, Maintenance, 05/06/24 9:51:00 AM EST, Aerosol, [facility], Partial fill upon patient [...] EST, Route to Pharmacy Electronically, [facility], 157.9, cm, 12/21/23 15:16:00 EDT, Height, 72, kg, 04/15/23 22:25:00 EST, Dry Weight Start Date: 03/28/24 Status: Ordered Quantity: 45.0 Unit: tablet Repeat number: 1 atorvastatin 80 mg oral tablet 1 tablet, By Mouth, Daily at bedtime, # 90 tablet, 1 Refills, Maintenance, 04/14/24 5:32:00 PM EST, [facility], 157.9, cm, 04/05/24 14:53:00 EST, [...] DX URINRY INCONTINENCE R39.81, SIM 99 VENU [phone], 02/13/22 2:43:00 PM EST, Supply Start Date: 02/13/22 Status: Ordered Quantity: 180.0 Unit: each Repeat number: 12 Indication: Unspecified urinary incontinence Flonase Allergy Relief 50 mcg/inh nasal spray 2 sprays = 100 mcg, Nares, Both, Daily, shake well before using, # 16 Gm, 1 Refills, Maintenance, 04/05/24 3:29:00 PM EST, [place], [facility], Partial fill [...] DX URINRY INCONTINENCE R39.81, SIM 99 VENU [phone], 02/13/22 2:45:00 PM EST, Supply Start Date: [...] 8:38:00 AM EDT, Route to Pharmacy Electronically, [facility], Partialfill upon patient request if [...] Refills, Maintenance, 11/30/23 7:46:00 AM EDT, [facility], 157.9, cm, 10/14/23 16:09:00 EDT, [...] EDT, Route to Pharmacy Electronically, [facility], Partial fill upon patient request [...] Maintenance, 07/14/24 4:51:00 PM EDT, [facility], 165, cm, 05/23/24 14:37:00 EST, [...] Dr Dalal/ [facility] Social History Social History Type Response Smoking [...] Team Personnel Name: Alejo Cadet MD Position: [facility] Physician - Gastroenterology Member Role: Lifetime Consulting Physician Address: [address], [address] [facility] [place], [place] - Telecom: Name: Rafita Edward MD Position: [facility] Renal MD Member Role: Lifetime Consulting Physician Address: [address] [place] [address] [address] [facility] [place], [place] - Telecom: Name: Prashanth Rose RN Position: [facility] RN Member Role: Primary Care Nurse Name: Dorothea Wang RN Position: [facility] RN Member Role: Primary Care Nurse Name: Ledy Forbes RN Position: [facility] SN RN Member Role: Primary Care Nurse Name: Kavita Pagan RN Position: [facility] Onco RN Member Role: Primary Care Nurse Name: Prashanth Carmona RN Position: [facility] RN Member Role: Primary Care Nurse Name: Jaspreet Menchaca MD Position: [facility] Renal MD Member Role: Lifetime Consulting Physician Address: [address] [place] [address] [address] [facility] [place], [place] - Telecom: Name: Maryam Ayers RN Position: [facility] ED RN W/OE and Tasks Member Role: Primary Care Nurse Name: Maxine Diallo RN Position: [facility] AMB Nurse Member Role: Primary Care Nurse Name: Estephanie Carballo RN Position: [facility] RN Member Role: Primary Care Nurse Name: Odalys Chau RN Position: [facility] SN RN Member Role: Primary Care Nurse Name: Reji Willson RN Position: [facility] RN Member Role: Primary Care Nurse Name: Katie Holden RN Position: [facility] AMB Nurse Member Role: Primary Care Nurse Name: Evelyen Garcia RN Position: [facility] RN Member Role: Primary Care Nurse Name: Sol Nobles Position: [facility] AMB Nurse Member Role: Lifetime Consulting Physician Name: Johnna Baker RN Position: [facility] RN Member Role: Primary Care Nurse Name: Fantasma Ac RN Position: [facility] SN RN Member Role: Primary Care Nurse Name: Shanda Sharp RN Position: [facility] RN Member Role: Primary Care Nurse Name: Sabi Ruiz Position: [facility] town clerk Member Role: Research Librarian Name: Vee Chand MD Position: [facility] Physician - Primary Care Member Role: PCP Address: [address] [address] [facility] 3rd [place] [address]- [place] Telecom: Name: Ta Kolb RN Position: [facility] ED RN W/OE and Tasks Member Role: Primary Care Nurse Name: Neftaly Morley MD Position: [facility] Outreach Member Role: Lifetime Consulting Physician Address: [address] [facility] [place] [address]- Telecom: Name: Eva Camarena RN Position: [facility] [place] Office Staff Member Role: Primary Care Nurse Name: Johnna Can CNM Position: [facility] Ladies' Hat Trimmer Member Role: Primary Care Nurse Address: [address] [place] [address]- [place] Telecom: Name: Brenda Brown RN Position: [facility] SN RN Member Role: Primary Care Nurse Name: David Mcwilliams MD Position: [facility] Renal MD Member Role: Lifetime Consulting Physician Address: [address] [facility] [place] [address]- [place] Telecom: Name: Sabi Grady RN Position: [facility] RN Member Role: Primary Care Nurse Name: Sheryl Gaytan Position: [facility] RN Member Role: Primary Care Nurse Name: Gonzalo Naylor RN Position: [facility] RN Member Role: Primary Care Nurse Care Team Related Persons Name: ANI PEREZ Name: STEFFANY FUENTES Insurance Providers Guarantor name: BEVERLY SOUZAWIN Health Plan Information #: 1 Payer: MEDICARE PART B OUTPT Member Number: NA Policy Number: NA Group Number: NA Health Plan Information #: 2 Payer: FOR LIFE MCR A ONLY Member Number: NA Policy Number: NA Group Number: NA
--- OUTSIDE RECORDS SUMMARY | 2024-08-04 15:01 | XMS_ITS | Clinical Summary ---
Author Organization [facility] Address [address] [place] [address] Care Team Providers Care Office Manager Executive Assistant Name Role Phone Vee Chand MD Primary [...] age to complete this topic Care Teams Office Manager Executive Assistant Relationship Specialty Start Date End Date Vee Chand MD [address] [place] [address] PCP - General Internal Medicine 08/18/19
--- OUTSIDE RECORDS SUMMARY | 2024-08-04 15:01 | XMS_ITS | Continuity of Care Document ---
Author Organization [facility] Address [address] [place] [address]- Support Name Relationship Address Phone ANI PEREZ [...] Unknown U navailable Care Team Providers Care Green Building Engineer Name Role Phone Mannie MUÑOZ, Vee Primary Care Physician Encounter [facility] ACCT R [id number] Date(s): 06/30/24 - 07/30/24 [facility] [address] [place] [address] Encounter Type: Triage Allergies, Adverse Reactions, Alerts [...] virus vaccine, inactivated 3 01/21/07 Gi tobi [id number] 12y+ bivalent booster vax 01/28/22 Recorded SARS-CoV-2 (COVID-19) mRNA BNT-162b2 vac 02/04/21 Recorded SARS-CoV-2 (COVID-19) Ad26 vaccine 06/19/20 Record ed pneumococcal 13-valent vaccine 08/09/14 Given pneumococcal 13-valent vaccine 08/09/14 Given tetanus/diphtheria/pertussis, acel(Tdap) 02/12/14 Given Fluzone (oldterm) 4 12/26/13 Given pneumococcal 23-valent vaccine 05/06/13 Given Influenza Virus Vaccine (oldterm) 5 05/15/08 Given Pneumococcal Vaccine (oldterm) 6 10/29/05 Given 1Result Comment: [facility] [id number] 2Result Comment: [facility] [id number] 3Admin Note: VIS GIVEN 4Admin Note: CDC VIS reviewed 5Admin Note: vis given 6Admin Note: vis given Medications Albuterol (Eqv-ProAir HFA) 90 mcg/inh inhalation aerosol 1 inhalation = 90 mcg, Inhalation, Every 4 hours, PRN as needed for shortness of breath or wheezing, # 6.7 Gm, 0 Refills, Maintenance, 05/06/24 9:51:00 AM EST, Aerosol, [facility], Partial fill upon patient [...] EST, Route to Pharmacy Electronically, [facility], 157.9, cm, 12/21/23 15:16:00 EDT, Height, 72, kg, 04/15/23 22:25:00 EST, Dry Weight Start Date: 03/28/24 Status: Ordered Quantity: 45.0 Unit: tablet Repeat number: 1 atorvastatin 80 mg oral tablet 1 tablet, By Mouth, Daily at bedtime, # 90 tablet, 1 Refills, Maintenance, 04/14/24 5:32:00 PM EST, [facility], 157.9, cm, 04/05/24 14:53:00 EST, [...] DX URINRY INCONTINENCE R39.81, SIM 99 VENU [phone], 02/13/22 2:43:00 PM EST, Supply Start Date: 02/13/22 Status: Ordered Quantity: 180.0 Unit: each Repeat number: 12 Indication: Unspecified urinary incontinence Flonase Allergy Relief 50 mcg/inh nasal spray 2 sprays = 100 mcg, Nares, Both, Daily, shake well before using, # 16 Gm, 1 Refills, Maintenance, 04/05/24 3:29:00 PM EST, [place], [facility], Partial fill [...] DX URINRY INCONTINENCE R39.81, SIM 99 VENU [phone], 02/13/22 2:45:00 PM EST, Supply Start Date: [...] 8:38:00 AM EDT, Route to Pharmacy Electronically, [facility], Partialfill upon patient request if [...] Refills, Maintenance, 11/30/23 7:46:00 AM EDT, [facility], 157.9, cm, 10/14/23 16:09:00 EDT, [...] EDT, Route to Pharmacy Electronically, [facility], Partial fill upon patient request [...] Maintenance, 07/14/24 4:51:00 PM EDT, [facility], 165, cm, 05/23/24 14:37:00 EST, [...] Dr Dalal/ [facility] Social History Social History Type Response Smoking [...] Team Personnel Name: Alejo Cadet MD Position: [facility] Physician - Gastroenterology Member Role: Lifetime Consulting Physician Address: [address], [address] [facility] [place], [place] - Telecom: Name: Rafita Edward MD Position: [facility] Renal MD Member Role: Lifetime Consulting Physician Address: [address] [place] [address] [address] [facility] [place], [place] - Telecom: Name: Prashanth Rose RN Position: [facility] RN Member Role: Primary Care Nurse Name: Dorothea Wang RN Position: [facility] RN Member Role: Primary Care Nurse Name: Ledy Forbes RN Position: [facility] SN RN Member Role: Primary Care Nurse Name: Kavita Pagan RN Position: [facility] Onco RN Member Role: Primary Care Nurse Name: Prashanth Carmona RN Position: [facility] RN Member Role: Primary Care Nurse Name: Jaspreet Menchaca MD Position: [facility] Renal MD Member Role: Lifetime Consulting Physician Address: [address] [place] [address] [address] [facility] [place], [place] - Telecom: Name: Maryam Ayers RN Position: [facility] ED RN W/OE and Tasks Member Role: Primary Care Nurse Name: Maxine Diallo RN Position: [facility] AMB Nurse Member Role: Primary Care Nurse Name: Estephanie Carballo RN Position: [facility] RN Member Role: Primary Care Nurse Name: Odalys Chau RN Position: [facility] SN RN Member Role: Primary Care Nurse Name: Reji Willson RN Position: [facility] RN Member Role: Primary Care Nurse Name: Katie Holden RN Position: [facility] AMB Nurse Member Role: Primary Care Nurse Name: Evelyne Garcia RN Position: [facility] RN Member Role: Primary Care Nurse Name: Sol Nobles Position: [facility] AMB Nurse Member Role: Lifetime Consulting Physician Name: Johnna Baker RN Position: [facility] RN Member Role: Primary Care Nurse Name: Fantasma Ac RN Position: [facility] SN RN Member Role: Primary Care Nurse Name: Shanda Sharp RN Position: [facility] RN Member Role: Primary Care Nurse Name: Sabi Ruiz Position: [facility] clinical documentation manager Member Role: Store Promoter Name: Vee Chand MD Position: [facility] Physician - Primary Care Member Role: PCP Address: [address] [place] [address]- [place] Telecom: Name: Ta Kolb RN Position: [facility] ED RN W/OE and Tasks Member Role: Primary Care Nurse Name: Neftaly Morley MD Position: [facility] Outreach Member Role: Lifetime Consulting Physician Address: [address] [facility] [place] [address]- Telecom: Name: Eva Camarena RN Position: [facility] [place] Office Staff Member Role: Primary Care Nurse Name: Johnna Can CNM Position: [facility] Senior Research Analyst Member Role: Primary Care Nurse Address: [address] [place] [address]- [place] Telecom: Name: Brenda Brown RN Position: [facility] SN RN Member Role: Primary Care Nurse Name: David Mcwilliams MD Position: [facility] Renal MD Member Role: Lifetime Consulting Physician Address: [address] [facility] [place] [address]- [place] Telecom: Name: Sabi Grady RN Position: [facility] RN Member Role: Primary Care Nurse Name: Sheryl Gaytan Position: [facility] RN Member Role: Primary Care Nurse Name: Gonzalo Naylor RN Position: [facility] RN Member Role: Primary Care Nurse Care [...]
--- OUTSIDE RECORDS SUMMARY | 2024-08-04 15:01 | XMS_ITS | Continuity of Care Document ---
Author Organization [facility] Adult Address [address] [place] [address]- Support Name Relationship Address Phone ANI PEREZ [...] Unknown U navailable Care Team Providers Care Resaw Machine Operator Name Role Phone Mannie MUÑOZ, Vee Primary Care Physician [place] [facility] [place] [id number] Date(s): 07/03/24 - 08/02/24 [facility] [address] [place] [address] [id number] Encounter Type: Triage Allergies, Adverse Reactions, [...] virus vaccine, inactivated 3 01/21/07 Gi tobi [id number] 12y+ bivalent booster vax 01/28/22 Recorded SARS-CoV-2 (COVID-19) mRNA BNT-162b2 vac 02/04/21 Recorded SARS-CoV-2 (COVID-19) Ad26 vaccine 06/19/20 Record ed pneumococcal 13-valent vaccine 08/09/14 Given pneumococcal 13-valent vaccine 08/09/14 Given tetanus/diphtheria/pertussis, acel(Tdap) 02/12/14 Given Fluzone (oldterm) 4 12/26/13 Given pneumococcal 23-valent vaccine 05/06/13 Given Influenza Virus Vaccine (oldterm) 5 05/15/08 Given Pneumococcal Vaccine (oldterm) 6 10/29/05 Given 1Result Comment: [facility] [id number] 2Result Comment: [facility] [id number] 3Admin Note: VIS GIVEN 4Admin Note: [facility] VIS reviewed 5Admin Note: vis given 6Admin Note: vis given Medications Albuterol (Eqv-ProAir HFA) 90 mcg/inh inhalation aerosol 1 inhalation = 90 mcg, Inhalation, Every 4 hours, PRN as needed for shortness of breath or wheezing, # 6.7 Gm, 0 Refills, Maintenance, 05/06/24 9:51:00 AM EST, Aerosol, [facility], Partial fill upon patient [...] EST, Route to Pharmacy Electronically, [id number], 157.9, cm, 12/21/23 15:16:00 EDT, [...] DX URINRY INCONTINENCE R39.81, SIM 99 VENU [phone], 02/13/22 2:43:00 PM EST, Supply Start Date: 02/13/22 Status: Ordered Quantity: 180.0 Unit: each Repeat number: 12 Indication: Unspecified urinary incontinence Flonase Allergy Relief 50 mcg/inh nasal spray 2 sprays = 100 mcg, Nares, Both, Daily, shake well before using, # 16 Gm, 1 Refills, Maintenance, 04/05/24 3:29:00 PM EST, [place], [id number], Partial fill [...] DX URINRY INCONTINENCE R39.81, SIM 99 VENU [phone], 02/13/22 2:45:00 PM EST, Supply Start Date: [...] 8:38:00 AM EDT, Route to Pharmacy Electronically, [id number], Partialfill upon patient request if [...] Refills, Maintenance, 11/30/23 7:46:00 AM EDT, [id number], 157.9, cm, 10/14/23 16:09:00 EDT, [...] Daily, # 90 tablet, 1 Refills, Maintenance, 08/01/24 6:20:00 PM EDT, 165, cm, 07/31/24 15:35:00 EDT, Height, 68.8, kg, 05/04/24 9:42:00 EST, Dry Weight Start Date: 08/01/24 Status: Ordered Quantity: 90.0 Unit: tablet Repeat [...] Dr Dalal/ [facility] Social History Social History Type Response Smoking [...] Gastroenterology Member Role: Lifetime Consulting Physician Address: [address] [place] [address], [address] [facility] [place] [address]- Telecom: Name: Rafita Edward MD Position: [facility] Renal MD Member Role: Lifetime Consulting Physician Address: [address] [place] [address] [id number] [facility] [address]- Telecom: Name: Prashanth Rose RN Position: [facility] MD Member Role: Lifetime Consulting Physician Address: [address] [place] [address] [address] [facility] [address]- Telecom: Name: Maryam Ayers RN Position: [facility] ED RN W/OE and Tasks Member Role: Primary Care Nurse Name: Maxine Diallo RN Position: [facility] Shoe Turner Member Role: Primary Care Nurse Name: Estephanie [...] Primary Care Nurse Name: Sol Nobles Position: [facility] AMB Nurse Member Role: Lifetime Consulting Physician Name: Johnna Baker RN Position: [facility] RN Member Role: Primary Care Nurse Name: Fantasma Ac RN Position: [facility] SN RN Member Role: Primary Care Nurse Name: Shanda Sharp RN Position: [facility] RN Member Role: Primary Care Nurse Name: Sabi Ruiz Position: [facility] patient care assistant Member Role: Gaming Department Head Name: Vee Chand MD Position: [facility] Physician - Primary Care Member Role: PCP Address: [address] [facility] [address] [place] [address]- [place] Telecom: Name: Ta Kolb RN Position: [facility] ED RN W/OE and Tasks Member Role: Primary Care Nurse Name: Neftaly Morley MD Position: [facility] Outreach Member Role: Lifetime Consulting Physician Address: [address] [facility] [place] [address]- [place] Tele[employer]: Name: Eva Camarena RN Position: [facility] [place] Office Staff Member Role: Primary Care Nurse Name: Johnna Can CNM Position: [facility] Motor Pool Clerk Member Role: Primary Care Nurse Address: [address] [place] [address]- [place] Telecom: Name: Brenda Brown RN Position: [facility] SN RN Member Role: Primary Care Nurse Name: David Mcwilliams MD Position: [facility] Renal MD Member Role: Lifetime Consulting Physician Address: [address] [facility] [place] [address]- [place] Tele[employer]: Name: Sabi Grady RN [facility]: [facility] [...]
--- OUTSIDE RECORDS SUMMARY | 2024-08-04 15:01 | XMS_ITS | Data Portability ---
Author Organization [place] - [facility] Address [address] [place] [id number] Care Team Providers Care Copyist Name Role Phone MELODYNEIL ESCALANTE Primary Care Provider [phone] Assessment Encounter Date Assessment Date Assessment LastModified by Organization Details LastModified Time 04/12/2020 04/12/2020 Proper Personal Protective Equipment (PPE), including gloves, gown, shoe covers, eye protection and masks were donned and doffed appropriately and all equipment cleaned using approved technique with germicidal disposable wipes prior to and after care of this patient according to [facility]'s infection prevention protocols. Overview/History: 79 yo female This patient is new to and new to this provider and also new to these symptoms with one week of acute on chronic. in moderate distress with 10/10 pain in bilateral knees right greater than left made worse by slight extension or palpation. Exam: 79 yo female in moderate distress, A&O3, normocephalic/atr aumatic, LS CTA, CV RRR, no MRGs, PPM DANA, Abd soft tender RUQ to palpation, all other quadrants non-tender to palpation. 10/10 bilateral knee pain right greater than left, 2+ BLEE, bilateral knees warm to touch, no erythema, patient became inconsolable with increased pain during passive ROM of right knee, exam discontinued DDx considered, but not limited to: DVT: possible with heat and swelling of lower extremities, less likely d/t the bilateral nature of pain and swelling. 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 recommended patient go to the ED for evaluation of DVT and pain control. Patient and daughter agreed; 911 called. Report given to EMS. Expect line called, prolonged hold; call discontinued. In order to obtain further information and compare any laboratory results/values, I have accessed no old patient records. This information was pertinent in my medical decision making today. Time On Scene with Patient: 00:54:09 - Referred - Point of Care: Emergency Department [email or web address] Not available 04/17/2020 13:16:55 07/08/2020 07/08/2020 Overview/History : 79 y/o F with PMHx sig for CAD s/p PCI and AICD, HLD, HTN, CKD with renal mass, and chronic anemia s/p transfusions cause unknown, known to but new to this provider, who presents w/ c/o weakness. Patient is s/p L TKR on 05/23/20 ([facility]) and just got home from rehab 6 days ago. Reports symptoms onset the day after she got home from rehab. Reports generalized weakness with prolonged standing or after being active such as making her bed or getting her mail. Denies nausea, SOB, CP, or diaphoresis with these episodes. Episodes occur after the activity and improve with rest quickly. Also reports increased stool frequency going 4 times today and more often in general since being home, also reports increased PO intake since being home because she did not eat much at rehab because she did not like the food. She reports food goes right through and admits to some abdominal discomfort prior to BM that improves after BM. Denies diarrhea or liquid stool . Denies abdominal pain otherwise, no fever, chills, nausea, vomiting, hematochezia, melena, knee pain, swelling, palpitations, CHILD, CP, SOB, presyncope, syncope, or dysuria. She has had UTIs in the past but states she typically gets burning with these and denies currently. Her daughters report that she gets occasional blood transfusions and that she just had blood work for Dr. Mckeon and Hgb 8.9 therefore transfusion not indicated. She admits to not sleeping well for the past 3 days as she cannot get comfortable. Admits to occasionally napping on the couch. Xarelto was stopped at last Ortho follow up. Exam: afebrile, mildly tachycardic initially, HR improved to 80 bpm by end of visit, normotensive, normal resps, O2 sat 97% on RA, non-toxic, well appearing. GENERAL: well developed, well nourished, appears stated age, sitting comfortably in no acute distress. HEENT: normocephalic, atraumatic, PERRLA, EOMI, sclera anicteric, conjunctiva pallor present, nares patent, posterior pharynx without lesions, or erythema, mmm. RESP: normal I:E, breathing non-labored, no accessory muscle use, clear to auscultation bilaterally, no wheezes, rhonchi, or rales. CARDIO: Regular, rapid, normal S1, S2, no murmurs, rubs, or gallops, radial, PT/AT/DP pulses 2+ bilaterally. ABD: soft, generally non-tender, non-distended, normoactive BS x4, approx 3 cm x 3 cm firm irregular mass palpated in the superficial RUQ/epigastric area tender to deep palpation only, no rebound, guarding, or rigidity, no abdominal bruit. MUSK: b/l LE nontender with normal strength, ROM, muscle tone, no atrophy, left anterior knee with well healed surgical scar. EXTREMITIES: warm, well perfused, no cyanosis, swelling or rashes, good cap refill < 2 sec. NEURO: awake, alert, oriented x3, CN2-12 grossly intact, no focal neuro deficits, moving all extremities spontaneously, ambulating with walker without difficulty. PSYCH: pleasant, anxious appearing, appropriate mood and affect. DDx considered, but not limited to: symptomatic anemia/GIB - less likely, h/o chronic anemia, H/H reportedly improving, low suspicion for bleeding septic joint - unlikely, no focal tenderness, swelling, or erythema, afebrile gastroenteritis - unlikely, no n/v or abdominal cramping, afebrile ACS - unlikely, no cp, sob, nausea, or diaphoresis, no acute ischemic changes on ECG arrhythmia - unlikely, no palpitations, cp, sob, syncope, ECG SR and pt w/ AICD dehydration - unlikely, adequate PO intake, mmm, no hypotension, BUN/Cr WNL ischemic colitis - unlikely, no pain OOP to exam, no melena or hematochezia c diff - unlikely, denies liquid stool, afebrile, no recent abx use malignancy - possible, recent CT with renal mass and h/o colon polyps and perforation CVA - unlikely, no focal neuro deficits CE - unlikely, no new n/t, MUSK exam WNL AAA - unlikely, extremities warm and well perfused, good peripheral pulses, no abdominal bruit UTI - unlikely, no dysuria and UA bland Deconditioning - likely after major surgery and decreased activity level in rehab Work up/Results: chem 8 sig for H/H 9.08/16 which reportedly is improved from last Hgb 8.9, BUN/Cr WNL, mild hyperglycemia with known DM; LFTs and CBC w/ diff pending. UA bland. Orthostatics negative; EKG NSR w/o acute ischemia. orthostatics LA sitting BP 120/68 HR 101, O2 98% standing BP 110/72 HR 108 O2 98% no sxs Plan/Discussion: -likely deconditioning after recent surgery, cannot r/o malignancy -no urgent or emergent cause for generalized intermittent weakness has been found -clinically stable at this time, VSS and mild tachycardia improved WNL later in visit, physical exam reassuring -Labs unremarkable, H/H improving per daughter's report of previous Hgb of 8.9, unable to review labs performed at [facility]; EKG NSR without acute ischemia; will call with pending lab results. -If symptoms worsen then go to ER -F/u with PCP regarding abdominal mass -F/u with heme regarding chronic anemia -Continue to increase PO intake as tolerated, continue with home PT, good sleep hygiene discussed Thank you for your visit with [facility] today. We cannot always find the exact cause of your symptoms during your initial visit. Please follow up with your primary care provider or specialist to be rechecked or seek medical attention if your symptoms do not go away or get worse. If you develop any new or worsening symptoms and need after hours care, please go to nearest ER and/or call 911. If you have additional concerns or develop a change in your condition between 8am-10pm, please call [facility] at [phone] to help navigate your care. In order to obtain further information and compare any laboratory results/values, I have accessed patient records on the [employer]. This information was pertinent in my medical decision making today. Time On Scene with Patient: 02:17:29 [email or web address] Not available 07/08/2020 15:45:43 11/11/2021 11/11/2021 Time On Scene with Patient: 01:18:29 - Not critically ill, but 911/emergency vehicle was only available option for transport 79 y/o F with PMHx sig for CAD s/p PCI and AICD, HLD, HTN, CKD with renal mass, and chronic anemia s/p transfusions cause unknown, known to but new to this provider. -Patient developed cold like symptoms on Tuesday 11/07 which consisted of cough and congestion. PCP was contacted and was told to purchase Corcidn, which was effective. -On 11/09 she experienced diarrhea and has not really consumed much food after. States she had one bowl of soup yesterday and denies consuming any food today. -Complains of excruciating constant, sharp left abdominal pain that began this morning. She denies taking any medication for the discomfort. She is able to pass gas, however last BM Wednesday night. I want to go to the hospital Time On Scene with Patient: 01:18:29 - Not critically ill, but 911/emergency vehicle was only available option for transport VSS Test: Negative Covid, Negative influenza Exam/Plan: Patient lying in bed in apparent pain. VSS, physical exam benign except left upper and lower abdominal pain with palpation, non rebound. Patient crying out in pain and requesting to go to the hospital. 911 was contacted and written and verbal report given to EMS. [email or web address] Not available 11/11/2021 15:09:03 Plan of Treatment Reminders Order Date Submit Date Provider Last Modified By Organization Details Last Modified Time Details Appointments None recorded. Lab rapid SARS CoV 2 Ag, QL IA, respirator y specimen 2021 022 [email or web address] [id number], [address] [place], [address], 2 15:10:14 rapid flu (A+B) 2021 022 [id number] [facility] [address], [address] [place], [address], 15:11:19 BMP + ionized calcium, serum or plasma 2020 021 [facility], [address], [place], [address], 17:14:20 CBC w/ auto diff 2020 021 COURTNEY [facility] (Centralized Electronic Ordering - All Locations), Patient Can Go To The Location Of Their Choice, [id number] 23:05:03 BMP + ionized calcium, serum or plasma - repeat due to Cl error 2020 [address] [facility], [address], [place], [address], 15:40:20 urinalysis , dipstick [facility], [address], [place], [address], 14:27:32 hepatic function panel, serum 2020 COURTNEY [facility] (Centralized Electronic Ordering - All Locations), Patient Can Go To The Location Of Their Choice, [id number] 00:12:48 Referral None recorded. Procedures None recorded. Surgeries None recorded. Imaging None recorded. Medication Orders None recorded. Patient TargetsNo targets recorded. Patient Instructions Encounter Date Encounter Id Patient Instructions Last Modified By Organization Details Last Modified Time 04/12/2020 [id number] septic arthritis of the hip in [facility] [email or web address] Not available 04/17/2020 13:18:09 Thank you for yo ur visit with [facility] today. We cannot always find the exact cause of your symptoms during your initial visit. Please follow up with your primary care provider or specialist within 12-24 hours within 24-48 hours to be rechecked or seek medical attention if your symptoms do not go away or get worse. If you develop any new or worsening symptoms and need after hours care, please go to nearest ER and/or call 911. If you have additional concerns or develop a change in your condition between 8am-10pm, please call [facility] at [phone] to help navigate your care. Not available 04/12/2020 20:00:38 Reason for Referral None Reported. Results Created Date Observation Date Name Description Value Unit Range Abnormal Flag Note LastModifiedBy Organization Detail LastModifiedTime 07/09/19 21 07/08/2020 urina lysis , dipst ick Appearance clear Not Available Spr - [facility] [address] [place], [address], 07/08/2020 14:11:30 07/09/19 21 07/08/2020 urina lysis , dipst ick Color yellow Not Available Spr - Home [address] [place], [address], 07/08/2020 14:11:30 07/09/19 21 07/08/2020 urina lysis , dipst ick Glucose negati ve Not Available Spr - Home [address] [place], [address], 07/08/2020 14:11:30 07/09/19 21 07/08/2020 urina lysis , dipst ick Bilirubin negati ve Not Available Spr - Home [address], [place], [address], 07/08/2020 14:11:30 07/09/19 21 07/08/2020 urina lysis , dipst ick Ketones NEG Not Available Spr - Home [address] [place], [address], 07/08/2020 14:11:30 07/09/19 21 07/08/2020 urina lysis , dipst ick Sp. [place] 1.015 Not Available Spr - Home [address] [place], [address], 07/08/2020 14:11:30 07/09/19 21 07/08/2020 urina lysis , dipst ick Blood NEG Not Available Spr - Home [address] [place], [address], 07/08/2020 14:11:30 07/09/19 21 07/08/2020 urina lysis , dipst ick pH 5.0 Not Available Spr - Home [address] [place], [address], 07/08/2020 14:11:30 07/09/19 21 07/08/2020 urina lysis , dipst ick Protein negati ve Not Available Spr - Home [address] [place], [address], 07/08/2020 14:11:30 07/09/19 21 07/08/2020 urina lysis , dipst ick Urobilirubin negati ve Not Available Spr - Home [address] [place], [address], 07/08/2020 14:11:30 07/09/19 21 07/08/2020 urina lysis , dipst ick Nitrites NEG Not Available Spr - [facility] [address] [place], [address], 07/08/2020 14:11:30 07/09/19 21 07/08/2020 urina lysis , dipst ick Leukocytes NEG Not Available Spr - H ome [address] [place], [address], 07/08/2020 14:11:30 07/09/19 21 07/08/2020 CBC w/ auto diff WBC 4.7 K/mm3 (4.0-1 1.0) Not Available [facility] (Centralized Electronic Ordering - All Locations) Patient Can Go To The Location Of Their Choice, [id number] 07/08/2020 23:05:03 07/09/19 21 07/08/2020 CBC w/ auto diff RBC 2.60 M/mm3 (4.20- 5.40) low Not Available [facility] (Centralized Electronic Ordering - All Locations) Patient Can Go To The Location Of Their Choice, [address] 07/08/2020 23:05:03 07/09/19 21 07/08/2020 CBC w/ auto diff HGB 9.1 gm/dL (11.7- 15.5) low Not Available [facility] (Centralized Electronic Ordering - All Locations) Patient Can Go To The Location Of Their Choice, 07/08/2020 23:05:03 07/09/1907/08/2020 CBC w/ auto diff HCT 28.0 % (35.7- 45.8) low Not Available [facility] (Centralized Electronic Ordering - All Locations) Patient Can Go To The Location Of Their Choice, 07/08/2020 23:05:03 07/09/1907/08/2020 CBC w/ auto diff MCV 107.7 fL (80.0- 100.0) high Not Available [facility] (Centralized Electronic Ordering - All Locations) Patient Can Go To The Location Of Their Choice, 07/08/2020 23:05:03 07/09/1907/08/2020 CBC w/ auto diff MCH 35.0 pg (27.0- 34.0) high Not Available [facility] (Centralized Electronic Ordering - All Locations) Patient Can Go To The Location Of Their Choice, 07/08/2020 23:05:03 07/09/1907/08/2020 CBC w/ auto diff MCHC 32.5 g/dL (33.0- 37.0) low Not Available [facility] (Centralized Electronic Ordering - All Locations) Patient Can Go To The Location Of Their Choice, 07/08/2020 23:05:03 07/09/1907/08/2020 CBC w/ auto diff plt 239 K/mm3 (150-4 60) Not Available [facility] (Centralized Electronic Ordering - All Locations) Patient Can Go To The Location Of Their Choice, 07/08/2020 23:05:03 07/09/1907/08/2020 CBC w/ auto diff RDW-SD 63.2 fL (<47.0 ) high Not Available [facility] (Centralized Electronic Ordering - All Locations) Patient Can Go To The Location Of Their Choice, 07/08/2020 23:05:03 07/09/1907/08/2020 CBC w/ auto diff MPV 9.9 fL (9.4-1 2.4) Not Available [facility] (Centralized Electronic Ordering - All Locations) Patient Can Go To The Location Of Their Choice, 07/08/2020 23:05:03 07/09/1907/08/2020 CBC w/ auto diff automated NRBC 0.0 #/100 _WBC' s Not Available [facility] (Centralized Electronic Ordering - All Locations) Patient Can Go To The Location Of Their Choice, 07/08/2020 23:05:03 07/09/1907/08/2020 CBC w/ auto diff abs. NRBC 0.0 K/mm3 Not Available [facility] (Centralized Electronic Ordering - All Locations) Patient Can Go To The Location Of Their Choice, 07/08/2020 23:05:03 07/09/1907/08/2020 CBC w/ auto diff neut # 3.1 K/mm3 (1.3-7 .0) Not Available [facility] (Centralized Electronic Ordering - All Locations) Patient Can Go To The Location Of Their Choice, 07/08/2020 23:05:03 07/09/1907/08/2020 CBC w/ auto diff lymph # 1.1 K/mm3 (0.8-3 .1) Not Available [facility] (Centralized Electronic Ordering - All Locations) Patient Can Go To The Location Of Their Choice, 07/08/2020 23:05:03 07/09/1907/08/2020 CBC w/ auto diff mono# 0.4 K/mm3 (0.4-0 .9) Not Available [facility] (Centralized Electronic Ordering - All Locations) Patient Can Go To The Location Of Their Choice, 07/08/2020 23:05:03 07/09/1907/08/2020 CBC w/ auto diff eo # 0.1 K/mm3 (0.0-0 .4) Not Available [facility] (Centralized Electronic Ordering - All Locations) Patient Can Go To The Location Of Their Choice, 07/08/2020 23:05:03 07/09/1907/08/2020 CBC w/ auto diff baso # 0.0 K/mm3 (0.0-0 .1) Not Available [facility] (Centralized Electronic Ordering - All Locations) Patient Can Go To The Location Of Their Choice, 07/08/2020 23:05:03 07/09/1907/08/2020 CBC w/ auto diff abs. imm gran 0.0 K/mm3 Not Available [facility] (Centralized [facility] Ordering - All Locations) Patient Can Go To The Location Of Their Choice, 07/08/2020 23:05:03 07/09/1907/08/2020 CBC w/ auto diff neut 65.8 % (44-76 ) Not Available [facility] (Centralized Electronic Ordering - All Locations) Patient Can Go To The Location Of Their Choice, 07/08/2020 23:05:03 07/09/1907/08/2020 CBC w/ auto diff lymph 23.7 % (15-43 ) Not Available [facility] (Centralized Electronic Ordering - All Locations) Patient Can Go To The Location Of Their Choice, 07/08/2020 23:05:03 07/09/1907/08/2020 CBC w/ auto diff monocyte 7.8 % (4.5-1 0.5) Not Available [facility] (Centralized Electronic Ordering - All Locations) Patient Can Go To The Location Of Their Choice, 07/08/2020 23:05:03 07/09/1907/08/2020 CBC w/ auto diff eo 1.5 % (0-6) Not Available [facility] (Centralized Electronic Ordering - All Locations) Patient Can Go To The Location Of Their Choice, 07/08/2020 23:05:03 07/09/1907/08/2020 CBC w/ auto diff baso 0.8 % (0-2) Not Available [facility] (Centralized Electronic Ordering - All Locations) Patient Can Go To The Location Of Their Choice, 07/08/2020 23:05:03 07/09/1907/08/2020 CBC w/ auto diff imm gran 0.4 % Not Available [facility] (Centralized Electronic Ordering - All Locations) Patient Can Go To The Location Of Their Choice, 07/08/2020 23:05:03 07/09/1907/09/2020 hepat ic funct ion panel , serum bilirubin,to [place] 0.3 mg/dL (0-1.2 ) Not Available [facility] (Centralized Electronic Ordering - All Locations) Patient Can Go To The Location Of Their Choice, 07/09/2020 00:12:48 07/09/1907/09/2020 hepat ic funct ion panel , serum bilirubin, direct <0.2 mg/dL (0-0.3 ) Not Available [facility] (Centralized Electronic Ordering - All Locations) Patient Can Go To The Location Of Their Choice, 07/09/2020 00:12:48 07/09/1907/09/2020 hepat ic funct ion panel , serum indirect bilirubin mg/dL (0.0-0 .7) Direc t bilir ubin is less than the measu reabl e limit . There fore, indir ect bilir ubin canno t be calcu lated . Not Available [facility] (Centralized Electronic Ordering - All Locations) Patient Can Go To The Location Of Their Choice, 07/09/2020 00:12:48 07/09/1907/09/2020 hepat ic funct ion panel , serum albumin 4.0 gm/dL (3.4-4 .8) Not Available [facility] (Centralized Electronic Ordering - All Locations) Patient Can Go To The Location Of Their Choice, 07/09/2020 00:12:48 07/09/1907/09/2020 hepat ic funct ion panel , serum AST 9 U/L (0-32) Not Available [facility] (Centralized Electronic Ordering - All Locations) Patient Can Go To The Location Of Their Choice, 07/09/2020 00:12:48 07/09/1907/09/2020 hepat ic funct ion panel , serum ALT 7 U/L (0-33) Not Available [facility] (Centralized Electronic Ordering - All Locations) Patient Can Go To The Location Of Their Choice, 07/09/2020 00:12:48 07/09/1907/09/2020 hepat ic funct ion panel , serum alk phos 121 U/L (35-10 4) high Not Available [facility] (Centralized Electronic Ordering - All Locations) Patient Can Go To The Location Of Their Choice, 07/09/2020 00:12:48 07/09/1907/09/2020 hepat ic funct ion panel , serum total protein 6.3 gm/dL (6.2-8 .2) Not Available [facility] (Centralized Electronic Ordering - All Locations) Patient Can Go To The Location Of Their Choice, [address] 07/09/2020 00:12:48 07/09/1907/08/2020 BMP + ioniz ed calci um, serum or plasm a glu 128 mg/dL 70-105 Not Available [address], [address], 07/17/2020 17:15:25 07/09/19 21 07/08/2020 BMP + ioniz ed calci um, serum or plasm a BUN 18 mg/dL 8-26 Not Available [address], [address], 07/17/2020 17:15:25 07/09/19 21 07/08/2020 BMP + ioniz ed calci um, serum or plasm a crea 1.2 mg/dL 0.6-1. 3 Not Available [address], [address], 07/17/2020 17:15:25 07/09/19 21 07/08/2020 BMP + ioniz ed calci um, serum or plasm a Na 140 mmol/ L 138-14 6 Not Available [address], [address], 07/17/2020 17:15:25 07/09/19 21 07/08/2020 BMP + ioniz ed calci um, serum or plasm a K 3.7 mmol/ L 3.5-4. 9 Not Available [address], [address], 07/17/2020 17:15:25 07/09/19 21 07/08/2020 BMP + ioniz ed calci um, serum or plasm a cL 104 mmol/ L 98-109 Not Available [address], [address], 07/17/2020 17:15:25 07/09/19 21 07/08/2020 BMP + ioniz ed calci um, serum or plasm a TCO2 28 mmol/ L 24-29 Not Available [address], [address], 07/17/2020 17:15:25 07/09/19 21 07/08/2020 BMP + ioniz ed calci um, serum or plasm a angap 12 mmol/ L 10-20 Not Available [address], [address], 07/17/2020 17:15:25 07/09/19 21 07/08/2020 BMP + ioniz ed calci um, serum or plasm a ica 1.22 mmol/ L 1.12-1 .32 Not Available [address], [address], 07/17/2020 17:15:25 07/09/19 21 07/08/2020 BMP + ioniz ed calci um, serum or plasm a HCT 28 %pcv 38-51 Not Available [address], [address], 07/17/2020 17:15:25 07/09/19 21 07/08/2020 BMP + ioniz ed calci um, serum or plasm a Hb 9.5 g/dL 12-17 Not Available [address], [address], 07/17/2020 17:15:25 07/09/19 21 07/08/2020 BMP + ioniz ed calci um, serum or plasm a glu 130 mg/dL 70-105 Not Available [address], [address], 07/17/2020 17:14:19 07/09/19 21 07/08/2020 BMP + ioniz ed calci um, serum or plasm a BUN 20 mg/dL 8-26 Not Available [address], [address], 07/17/2020 17:14:19 07/09/19 21 07/08/2020 BMP + ioniz ed calci um, serum or plasm a crea 1.2 mg/dL 0.6-1. 3 Not Available [address], [address], 07/17/2020 17:14:19 07/09/19 21 07/08/2020 BMP + ioniz ed calci um, serum or plasm a Na 140 mmol/ L 138-14 6 Not Available [address], [address], 07/17/2020 17:14:19 07/09/19 21 07/08/2020 BMP + ioniz ed calci um, serum or plasm a K 3.7 mmol/ L 3.5-4. 9 Not Available [address], [address], 07/17/2020 17:14:19 07/09/19 21 07/08/2020 BMP + ioniz ed calci um, serum or plasm a cL mmol/ L 98-109 Not Available [address], [address], 07/17/2020 17:14:19 07/09/19 21 07/08/2020 BMP + ioniz ed calci um, serum or plasm a TCO2 24 mmol/ L 24-29 Not Available [address], [address], 07/17/2020 17:14:19 07/09/19 21 07/08/2020 BMP + ioniz ed calci um, serum or plasm a angap mmol/ L 10-20 Not Available [facility] [address] [place], [address], 07/17/2020 17:14:19 07/09/19 21 07/08/2020 BMP + ioniz ed calci um, serum or plasm a ica 1.24 mmol/ L 1.12-1 .32 Not Available [facility] [address] [place], [address], 07/17/2020 17:14:19 07/09/19 21 07/08/2020 BMP + ioniz ed calci um, serum or plasm a HCT 28 %pcv 38-51 Not Available [facility] [address] [place], [address], 07/17/2020 17:14:19 07/09/19 21 07/08/2020 BMP + ioniz ed calci um, serum or plasm a Hb 9.5 g/dL 12-17 Not Available [id number] [place], [address], 07/17/2020 17:14:19 11/12/19 22 11/11/2021 rapid flu (A+B) Flu A (ref: neg) negati ve Not Available [facility] - [address] [place], [address], 11/11/2021 15:10:40 11/12/19 22 11/11/2021 rapid flu (A+B) Flu B (ref: neg) negati ve Not Available [facility] [address] [place], [address], 11/11/2021 15:10:40 11/12/19 22 11/11/2021 rapid flu (A+B) Control Visual ized/V alid Not Available [facility] - [address] [place], [address], 11/11/2021 15:10:40 11/12/19 22 11/11/2021 rapid SARS CoV 2 Ag, QL IA, respi rator y speci men Covid-19 (ref: neg) negati ve Not Available Spr - Home [address] [facility], [place], [address], 11/11/2021 15:09:43 11/12/19 22 11/11/2021 rapid SARS CoV 2 Ag, QL IA, respi rator y speci men Control Visual ized/V alid Not Available Spr - Home [address] [facility], [place], [address], 11/11/2021 15:09:43 11/12/19 22 11/11/2021 rapid SARS CoV 2 Ag, QL IA, respi rator y speci men Location [facility], [address] [place] [address], [id number] Not Available [facility] - [address] [place], [address], 11/11/2021 15:09:43 Result Notes None recorded. Procedures Surgical History Date Name Laterality Status Provider Name and Address Organization Details Recorded Time 07/09/19 21 Venipuncture - completed MARIA M LOPEZ [address] [place], [address], [place] [facility] 07/08/2020 13:58:24 07/09/19 21 ECG Interpretation - completed MARIA M LOPEZ [address] [place], [address], [place] [facility] 07/08/2020 14:08:14 percutaneous coronary intervention completed ARIEL DYSON NP [address] [place], [address], [place] [facility] 04/12/2020 19:00:50 cardiac pacemaker procedure completed ARIEL DYSON NP [address] [place], [address], [place] [facility] 04/12/2020 19:01:35 Imaging Results None recorded. Procedure Notes None recorded. Medical Equipment None Reported. Medications Name Sig Start Date Stop Date Status Note LastModified by Organization Details LastModified Time furosemide 40 mg tablet TAKE ONE TABLET BY MOUTH EVERY MORNING AND ONE-HALF TABLET BY MOUTH IN THE EVENING 11/11 completed Not Available Not Available Not Available atorvastati n 80 mg tablet TAKE ONE TABLET BY MOUTH AT BEDTIME active Not Available Not Available No t Available prednisone 10 mg tablet 04/12 completed Not Available Not Available Not Available doxycycline hyclate 100 mg capsule TAKE 1 CAPSULE BY MOUTH EVERY 12 HOURS FOR 10 DAYS 04/12 completed Not Available Not Available Not Available torsemide 20 mg tablet TAKE 1 TABLET BY MOUTH 2 TIMES A DAY. MAY TAKE UP TO 4 TABLETS IN A DAY IF NEEDED, INSTRUCTE D BY HEART FAILURE CLINIC. active Not Available Not Available No t Available metoprolol succinate ER 50 mg tablet,exte nded release 24 hr TAKE 1 AND 1/2 TABLETS BY MOUTH ONCE DAILY 11/11 completed Not Available Not Available Not Available meloxicam 15 mg tablet TAKE ONE TABLET BY MOUTH EVERY DAY 11/11 completed Not Available Not Available Not Available prednisone 20 mg tablet TAKE TWO TABLETS BY MOUTH EVERY DAY FOR 5 DAYS WITH FOOD OR MILK 04/12 completed Not Available Not Available Not Available metoprolol succinate ER 100 mg tablet,exte nded release 24 hr TAKE ONE TABLET BY MOUTH EVERY DAY active Not Available Not Available No t Available Ferrex 150 mg iron capsule TAKE ONE CAPSULE BY MOUTH EVERY DAY 04/12 completed Not Available Not Available Not Available allopurinol 100 mg tablet TAKE ONE TABLET BY MOUTH EVERY DAY active Not Available Not Available No t Available tramadol 50 mg tablet active Not Available Not Available No t Available spironolact one 25 mg tablet TAKE HALF OF A TABLET DAILY MAY TAKE AN ADDITIONA L ONE TABLET NEEDED WHEN INSTRUCTE D BY . CLINIC ON DAYS WHEN TAKING INCREASED TORSEMID active Not Available Not Available No t Available metoclopram neha 5 mg tablet TAKE ONE TABLET BY MOUTH EVERY 12 HOURS NEEDED FOR NAUSEA AND VOMITTING 11/11 completed Not Available Not Available Not Available DOK 100 mg capsule TAKE ONE CAPSULE BY MOUTH TWICE A DAY START AFTER SURGERY active Not Available Not Available No t Available aspirin 325 mg tablet,beto yed release TAKE ONE TABLET BY MOUTH TWICE A DAY START AFTER SURGERY active Not Available Not Available No t Available cephalexin 500 mg capsule TAKE 1 CAPSULE BY MOUTH EVERY 6 HOURS FOR 7 DAYS 04/12 completed Not Available Not Available Not Available pantoprazol e 40 mg tablet,beto yed release TAKE ONE TABLET BY MOUTH EVERY DAY active Not Available Not Available No t Available ferrous sulfate 325 mg (65 mg iron) tablet TAKE ONE TABLET BY MOUTH TWO TIMES A DAY 11/11 completed Not Available Not Available Not Available ibuprofen 400 mg tablet TAKE 1 TABLET BY MOUTH EVERY 8 HOURS NEEDED FOR PAIN 11/11 completed Not Available Not Available Not Available Procrit 20,000 unit/mL injection solution INJECT 20,000 UNITS UNDER THE SKIN ONCE WEEKLY ON THURSDAYS . HOLD IF HGB>10 11/11 completed Not Available Not Available Not Available digoxin 125 mcg (0.125 mg) tablet TAKE 1 TABLET BY MOUTH EVERY WEDNESDAY, WEDNESDAY AND 04/12 completed Not Available Not Available Not Available furosemide 20 mg tablet TAKE 1 TABLET BY MOUTH ONCE DAILY IN THE MORNING. 04/12 completed Not Available Not Available Not Available colchicine 0.6 mg tablet TAKE ONE TABLET BY MOUTH EVERY DAY 04/12 completed Not Available Not Available Not Available calcitriol 0.25 mcg capsule TAKE ONE CAPSULE BY MOUTH THREE TIMES A WEEK active Not Available Not Available No t Available oxycodone 5 mg tablet 11/11 completed Not Available Not Available Not Available enoxaparin 80 mg/0.8 mL subcutaneou s syringe 04/12 completed Not Available Not Available Not Available ClearLax 17 gram/dose oral powder USE 17 GRAMS OF POWDER (TO FILL LINE INSIDE CAP) MIXED WITH BEVERAGE DIRECTED EACH EVENING AT BEDTIME. active Not Available Not Available No t Available Xarelto 10 mg tablet 11/11 completed Not Available Not Available Not Available Myrbetriq 50 mg tablet,exte nded release active Not Available Not Available Not Available Entresto 49 mg-51 mg tablet TAKE ONE TABLET BY MOUTH TWICE A DAY 04/12 completed Not Available Not Available Not Available Entresto 24 mg-26 mg tablet TAKE ONE TABLET BY MOUTH TWICE A DAY 04/12 completed Not Available Not Available Not Available Vitals Date Recorded Body temperature Oxygen saturation Oxygen saturation in Arterial blood by Pulse oximetry Heart rate Respiratory rate Systolic blood pressure Diastolic blood pressure Provider Name and Address Organization Details Last Updated DateTime 1 98.9 [degF] 96 % 96 % 79 /min 18 /min 110 mm[Hg] 70 mm[Hg] Not Available [facility] 1 18:56:45 Date Recorded Oxygen saturation Oxygen saturation in Arterial blood by Pulse oximetry Respiratory rate Heart rate Body temperature Systolic blood pressure Diastolic blood pressure Provider Name and Address Organization Details Last Updated DateTime 1 97 % 97 % 18 /min 102 /min 98.4 [degF] 130 mm[Hg] 60 mm[Hg] Not Available [facility] 1 13:15:25 Date Recorded Heart rate Body temperature Oxygen saturation Oxygen saturation in Arterial blood by Pulse oximetry Respiratory rate Systolic blood pressure Diastolic blood pressure Provider Name and Address Organization Details Last Updated DateTime 2 62 /min 98.5 [degF] 96 % 96 % 18 /min 130 mm[Hg] 60 mm[Hg] Not Available [facility] 2 13:55:12 Social History Question Answer Notes LastModified by Organizat ion Details LastModified Time Tobacco Smoking Status Former Smoker ARIEL DYSON NP [address], [place], [address], [place] [facility] 04/12/2020 18:58:02 Do You Have An Advance Directive? Yes [email or web address] Information not available 04/12/2020 What Is Your Code Status? Full Code [email or web address] Information not available 04/12/2020 Within The Past 12 Months, Has It Happened That The Food You Bought Just Didn't Last And You Didn't Have Money To Get More. No Information not available 04/12/2020 Within The Past 12 Months, Have You Worried That Your Food Would Run Out Before You Got Money To Buy More. No [email or web address] Information not available 04/12/2020 Fall Risk: Do You Feel Unsteady When Standing Or Walking? Yes [email or web address] Information not available 04/12/2020 We Know That How And When People Interact With Friends And Family Can Be Very Different From Person To Person. How Often Do You Have The Opportunity To See Or Talk To People That You Care About And Feel Close To? (Ex: Talking To Friends On The Phone Or Visiting Friends Or Family Or Going To Confucianist Or Club Meetings) 5 Or More Times Per Week [email or web address] Information not available 04/12/2020 Excessive Alcohol Or Drug Use No [email or web address] Information not available 04/12/2020 We Know From Many Of Our Patients That Covering All Of Their Costs Can Be Difficult At Times. This Can Cause Stress And Impact Health. In The Past Year, Have You Been Unable To Get Any Of The Following When It Was Really Needed? No [email or web address] Information not available 04/12/2020 What Is Your Housing Situation Today? I Have Housing [email or web address] Information not available 04/12/2020 Would You Like Help Connecting To Resources? None [email or web address] Information not available 04/12/2020 What Was The Date Of Your Most Recent Tobacco Screening? 04/04/2013 Information not available 04/12/2020 How Much Tobacco Do You Smoke? 0.25 PPD [email or web address] Information not available 04/12/2020 How Many Years Have You Smoked Tobacco? 15 Information not available 04/12/2020 Sex: Unknown Functional Status None recorded. Mental Status None recorded. Family History Relationship Description Onset Age of this Age Resolved Age Notes LastModified by Organization Details LastModified Time Father No current problems or disability [email or web address] Not available 04/12 18:57:55 Mother No current problems or disability [email or web address] Not available 04/12 18:57:55 Medical History Condition Response Diabetes Y Coronary Artery Disease Y High Cholesterol Y Pulmonary Embolism N Cancer N Stroke N Hypertension Y COPD N Asthma N Kidney Disease Y Gynecological HistoryNo gynecological history recorded. Obstetrics History GPAL:G 0 P 0 0 0 0 Immunizations Vaccine Type Date Status Note Provider Nam e and Address Organization Details Recorded Time Influenza, split virus, quadrivalent, preservative 0 completed ARIEL DYSON NP [address] [place], [address], [place] [facility] 04/12/2020 18:57:29 Past Encounters Encounter ID Performer Location Encounter Start Date Encounter Closed Date Diagnosis/Indication Diagnosis SNOMED-CT Code Diagnosis ICD10 Code Diagnosis Note [id number] ARIEL DYSON NP [facility] [address] [place] [address] 04/12/2020 18:50:30 04/14/2020 23:53:31 Gout 82312669 M10.9 Congestive heart failure 09905737 I50.9 Knee pyoge trang arthritis 168484003 M00.9 Deep venou s thrombosis 988140822 I82.409 [id number] MARIA M LOPEZ [facility] [address] [place] [address] 07/08/2020 13:07:51 07/10/2020 15:58:40 Weakness present 182801992 M62.81 Tachycardia 1487744 R00. 0 Anemia 253326481 D64.9 Abdominal mass 955227772 R19.00 Physical deconditioning 8175477703 9102 R68.89 [id number] September JORDON Davalos [facility] - [facility] [address] [place] [address] 11/11/2021 13:50:10 11/12/2021 08:26:50 Abdominal pain 18347695 R10.9 Cough 10501654 R05.1 Health Concerns Section Related Observation LastModified by Organization Detai ls LastModified Time None Recorded Concern Status LastModified by Organization Details LastModified Time None Recorded Advance Directives Directive Y: Payers Insurance Date Sequence Insurance Name Policy Number Policy Conklin Covered Member ID Conklin Member ID Guarantor Name 11/17/2021 2 WPS - FOR LIFE (MEDICARE SUPPLEMENT) Margo Fang [id number] Margo Fang 08/30/2020 2 WPS - FOR LIFE (MEDICARE SUPPLEMENT) Margo Fang [id number] Margo Fang 04/12/2020 1 *SELF PAY* Margo Fang [id number] Margo Fang 11/11/2021 1 [place] [employer] Margo Fang [id number] Margo Fang 04/12/2020 1 [place] Margo Fang [id number] Margo Fang 07/08/2020 PENDING Margo Fang [id number] Margo Fang Notes Date Note Type Note Provider Name and Address Organization Details Recorded Time 04/12/2020 text/html 79 yo female Thi s patient is new to and new to this provider and also new to these symptoms, Presents with one week history of acute on chronic knee pain right greater than left; denies any trauma. She rates this pain as 10/10, endorses ibuprofen and voltaren cream application with some relief. Patient is scheduled for left total knee replacement in May, ARIEL DYSON NP [address], [place], [address], [place] [facility] 04/17/2020 13:18:18 07/08/2020 text/html 79 y/o F with PM Hx sig for CAD s/p PCI and AICD, HLD, HTN, CKD with renal mass, and chronic anemia s/p transfusions cause unknown, known to but new to this provider, who presents w/ c/o weakness. Patient is s/p L TKR on 05/23/20 ([facility]) and just got home from rehab 6 days ago. Reports symptoms onset the day after she got home from rehab. Reports generalized weakness with prolonged standing or after being active such as making her bed or getting her mail. Denies nausea, SOB, CP, or diaphoresis with these episodes. Episodes occur after the activity and improve with rest quickly. Also reports increased stool frequency going 4 times today and more often in general since being home, also reports increased PO intake since being home because she did not eat much at rehab because she did not like the food. She reports food goes right through and admits to some abdominal discomfort prior to BM that improves after BM. Denies diarrhea or liquid stool . Denies abdominal pain otherwise, no fever, chills, nausea, vomiting, hematochezia, melena, knee pain, swelling, palpitations, CHILD, CP, SOB, presyncope, syncope, or dysuria. She has had UTIs in the past but states she typically gets burning with these and denies currently. Her daughters report that she gets occasional blood transfusions and that she just had blood work for Dr. Mckeon and Hgb 8.9 therefore transfusion not indicated. She admits to not sleeping well for the past 3 days as she cannot get comfortable. Admits to occasionally napping on the couch. Xarelto was stopped at last Ortho follow up. MARIA M LOPEZ [address], [place], [address], [place] [facility] 07/08/2020 15:46:18 11/11/2021 text/html 79 y/o F with PM Hx sig for CAD s/p PCI and AICD, HLD, HTN, CKD with renal mass, and chronic anemia s/p transfusions cause unknown, known to DH but new to this provider.-Patient developed cold like symptoms on Tuesday 11/07 which consisted of cough and congestion. PCP was contacted and was told to purchase Corcidn, which was effective.-On 11/09 she experienced diarrhea and has not really consumed much food after. States she had one bowl of soup yesterday and denies consuming any food today.-Complains of excruciating constant, sharp left abdominal pain that began this morning. She denies taking any medication for the discomfort. She is able to pass gas, however last BM Wednesday night. September Anoop, JORDON [address], [place], [address], [place] [facility] 11/11/2021 15:11:46 OBGyn Episode No OBEpisode recorded.
--- NOTE | 2024-08-04 15:02 | HO.NEPHOV ---
Vital Signs 08/04/24 15:07 Height 5 ft 5 in Weight 158 lb BMI 26.3 BP 100/54 L Blood Pressure Location Lt brachial Position Sitting Pulse 68 Pulse Source Pulse Oximeter Pulse Oximetry (%) 96 Oxygen Delivery Method Room Air Intake Visit Reasons: 1 MO FU-Conf Behavioral Technician Required: No Accompanied by: Daughter Allergies lisinopril [LISINOPRIL] Allergy (Severe, Verified 08/04/24 15:06) ANGIOEDEMA HPI Comments Details: Margo was seen in follow-up of her chronic kidney disease. She has medical history significant for CKD, CAD, ischemic cardiomyopathy with ICD, HFrEF, paroxysmal atrial fibrillation, HTN, T2DM, anemia, arthritis, urinary incontinence, secondary hyperparathyroidism, GERD . She has H/O JOSE CARLOS superimposed on CKD with creatinine going up to 8.0. JOSE CARLOS was thought to be 2/2 to combination of recent gastroenteritis and also patient being on diuretics ( reported to be taking double doses than prescribed.) and contrast exposure on 04/09. Her creatinine improved / stable with supportive care. She does not have any chest pain, shortness of breath, worsening pedal edema. She has no urinary symptoms. She has a renal mass and is followed by a urologist. She does not have any weight loss, hematuria, night sweats. She tries to be compliant with a low-sodium diet. Her diuretics are adjusted by cardiology [facility] Medical History (Updated 04/28/24 @ 20:22 by Jaspreet Menchaca MD) Acute kidney injury Secondary hyperparathyroidism Essential (primary) hypertension Renal mass Chronic kidney disease, stage 3b Surgical History History of knee replacement Family History Mother Heart disease Father Lung cancer Social History Alcohol intake: never Patient Tobacco Use Status: Former Tobacco user Review of Systems Const All systems reviewed & are unremarkable except as noted in HPI and below Physical Exam Vital Signs: Last Vital Signs Pulse 68 08/04/24 15:07 BP 100/54 L 08/04/24 15:07 Pulse Ox 96 08/04/24 15:07 Oxygen Delivery Method Room Air 08/04/24 15:07 BMI result Body Mass Index 26.3 Const General: comfortable and no acute distress Orientation/consciousness: patient oriented x3 HEENT Head: Yes normocephalic Mouth: Normal oral and palatal mucosa present Eyes EOM: EOMs intact bilaterally Neck Neck: Yes supple Resp Auscultation: clear to auscultation bilaterally Cardio Jugular venous distension: no JVD Rate: regular rate GI Palpation (GI): Soft to palpation Auscultation: normal bowel sounds General: Yes no CVA tenderness Back/Spine/Pelvis Back: no CVA tenderness Skin General skin exam: no rashes or lesions noted Neuro General: patient oriented x3 and moves all extremities Extrem General: Yes no pedal edema Office Meds epoetin jorge-epbx 10,000 unit/mL injection solution Performing Provider: Jaspreet Menchaca MD Performing Location: [facility] Administered by: Jaspreet Menchaca MD on 08/04/24 15:45 Dose Route Admin Location Dispensed Lot Number Expiration Date [facility] Assistant City Attorney 40,000 unit subcut LUE 4 mL [id number] 09/19/25 1713-7226-61 [employer] Results Reviewed Nephrology Results: No Data to Display Assessment & Plan Assessment & Plan (1) Essential (primary) hypertension: Code(s): I10 - Essential (primary) hypertension Category: Medical (2) Secondary hyperparathyroidism: Code(s): N25.81 - Secondary hyperparathyroidism of renal origin Category: Medical (3) Anemia in chronic kidney disease (CKD): Code(s): N18.9 - Chronic kidney disease, unspecified; D63.1 - Anemia in chronic kidney disease Category: Medical Qualifiers: Chronic kidney disease stage: stage 4 (severe) Qualified Code(s): N18.4 - Chronic kidney disease, stage 4 (severe); D63.1 - Anemia in chronic kidney disease (4) Chronic kidney disease, stage 3b: Code(s): N18.32 - Chronic kidney disease, stage 3b Category: Medical Plan Margo has stage III B CKD at baseline. She had JOSE CARLOS's from cardiorenal syndrome with loss of GFR. She is hemodynamically stable . Her volume status is optimal. Her diuretics are adjusted by [facility] cards. She should be on low-sodium diet. She should avoid nonsteroidal anti-inflammatory medications. Her renal functions are close baseline. I gave [id number] Units of Procrit in the office today. She will need activated Vitamin D soon. I shall explore whether she is a candidate for SGLT2 i after a 24 hour urine collection . She has some vertigo. I started Meclizine 12.5 mg bid. I did not make any other medication changes today. She follows-up with her urologist for her renal mass. All questions were answered Orders: Orders IRON PROFILE 1 Month D63.1 - Anemia in chronic kidney disease, I10 - Essential (primary) hypertension, N18.32 - Chronic kidney disease, stage 3b, N18.4 - Chronic kidney disease, stage 4 (severe), N25.81 - Secondary hyperparathyroidism of renal origin Complete Blood Count Auto Diff 1 Month D63.1 - Anemia in chronic kidney disease, I10 - Essential (primary) hypertension, N18.32 - Chronic kidney disease, stage 3b, N18.4 - Chronic kidney disease, stage 4 (severe), N25.81 - Secondary hyperparathyroidism of renal origin Ferritin 1 Month D63.1 - Anemia in chronic kidney disease, I10 - Essential (primary) hypertension, N18.32 - Chronic kidney disease, stage 3b, N18.4 - Chronic kidney disease, stage 4 (severe), N25.81 - Secondary hyperparathyroidism of renal origin Electrolytes 1 Month D63.1 - Anemia in chronic kidney disease, I10 - Essential (primary) hypertension, N18.32 - Chronic kidney disease, stage 3b, N18.4 - Chronic kidney disease, stage 4 (severe), N25.81 - Secondary hyperparathyroidism of renal origin Blood Urea Nitrogen 1 Month D63.1 - Anemia in chronic kidney disease, I10 - Essential (primary) hypertension, N18.32 - Chronic kidney disease, stage 3b, N18.4 - Chronic kidney disease, stage 4 (severe), N25.81 - Secondary hyperparathyroidism of renal origin Creatinine 1 Month D63.1 - Anemia in chronic kidney disease, I10 - Essential (primary) hypertension, N18.32 - Chronic kidney disease, stage 3b, N18.4 - Chronic kidney disease, stage 4 (severe), N25.81 - Secondary hyperparathyroidism of renal origin [facility]B Epoetin Injection Practice Supplied Today D63.1 - Anemia in chronic kidney disease, N18.4 - Chronic kidney disease, stage 4 (severe) Medications: New meclizine 12.5 mg PO BID 30 tabs 0RF dizziness epoetin jorge-epbx 40,000 units (4 mL) subcut ONCE 4 mL 0RF D63.1 - Anemia in chronic kidney disease, N18.4 - Chronic kidney disease, stage 4 (severe) Coding Level of Care Code Est Pt Level 4 (67537) Diagnoses Essential (primary) hypertension I10 Secondary hyperparathyroidism N25.81 Anemia in stage 4 chronic kidney disease N18.4; D63.1 Chronic kidney disease stage: stage 4 (severe) Chronic kidney disease, stage 3b N18.32
[2024-08-04 15:07] VITALS: BP 100/54; PULSE 68; O2SAT 96; BMI 26.3
== END 2024-08-04 15:44 | disposition home or self-care (01) ==
LOC: HO.HKA 14:59
PROVIDERS: PCP Internal Medicine; Visit Provider Internal Medicine Nephrology
DX: I12.9 Hypertensive chronic kidney disease with stage 1 through stage 4 chronic kidney disease, or unspecified chronic kidney disease (principal); N25.81 Secondary hyperparathyroidism of renal origin; N18.4 Chronic kidney disease, stage 4 (severe); D63.1 Anemia in chronic kidney disease; N18.32 Chronic kidney disease, stage 3b
CPT/HCPCS: 99214

== ENCOUNTER → 2024-08-04 14:59 | Outpatient (BNVA) | payer MEDICARE, OTHER, SELFPAY | PROVIDERS: PCP Internal Medicine; Visit Provider Internal Medicine Nephrology | DX: I12.9 Hypertensive chronic kidney disease with stage 1 through stage 4 chronic kidney disease, or unspecified chronic kidney disease (principal); N18.4 Chronic kidney disease, stage 4 (severe); N25.81 Secondary hyperparathyroidism of renal origin; D63.1 Anemia in chronic kidney disease | CPT/HCPCS: 96372; 99212; Q5106 ==

== ENCOUNTER 2024-09-08 14:41 | Outpatient (AMB) | payer MEDICARE, OTHER, SELFPAY ==
--- OUTSIDE RECORDS SUMMARY | 2024-09-08 14:43 | XMS_ITS | Clinical Summary ---
Author Organization [facility] Address [address] [place] [address] Care Team Providers Care Welfare Director Name Role Phone Vee Chand MD [...] 64 08/03/2023 2:55 PM EDT Temperature 36.3 C (97.4 F) 08/03/2023 2:55 PM EDT Respiratory Rate 18 08/03/2023 12:27 PM EDT [...] 2023 02/04/2021, 06/19/2020, 06/18/2020, Additional history exists DTap / Tdap / Td (2 - Td or Tdap) 02/13/2024 02/12/2014 Influenza Vaccine (Season Ended) 2024 01/02/2022, 01/05/2021, 01/02/2021, Additional history exists Pneumococcal Vaccine Completed 08/09/2014, 06/09/2014, 06/20/2013, Additional history exists Hepatitis B Vaccines Aged Out No long er eligible based on patient's age to complete this topic RSV Ped < 20 months Aged Out No longe r eligible based on patient's age to complete this topic Care Teams Welfare Director Relationship Specialty Start Date End Date Vee Chand MD [address] [place] [address] PCP - General Internal Medicine 08/18/19
--- NOTE | 2024-09-08 14:45 | HO.NEPHOV_ITS ---
Vital Signs 09/08/24 14:52 Height 5 ft 5 in Weight 156 lb 6 oz BMI 26.0 BP 110/60 Blood Pressure Location Lt brachial Position Sitting Pulse 69 Pulse Source Pulse Oximeter Pulse Oximetry (%) 98 Oxygen Delivery Method Room Air Intake Visit Reasons: 1 MO FU-M Executive Relations Specialist Required: No Accompanied by: Daughter Allergies lisinopril (LISINOPRIL) Allergy (Severe, Verified 09/08/24 14:52) ANGIOEDEMA Medication List - Last Reconciled 09/08/24 by Dominga Jiang, DNP, MOMD TEACHER-BC albuterol sulfate 90 mcg/actuation inhalation allopurinol 50 mg PO DAILY atorvastatin 80 mg PO DAILY calcitriol 0.25 mcg PO DAILY calcium citrate-vitamin D3 315 mg-6.25 mcg (250 unit) 1 tab PO BID ergocalciferol (vitamin D2) 1,250 mcg PO QWEEK fluticasone propionate 50 mcg/actuation 1 spray intranasal BID PRN meclizine 12.5 mg PO BID melatonin 6 mg PO BEDTIME PRN metoprolol succinate ER 100 mg PO DAILY mirabegron ER (Myrbetriq) 50 mg PO DAILY pantoprazole 40 mg PO DAILY potassium chloride ER 10 mEq PO DAILY sodium bicarbonate 325 mg PO DAILY spironolactone 12.5 mg PO DAILY torsemide 20 mg PO DAILY HPI Comments Details: Margo is here for a 1 month follow up for her CKD3b. She has medical history significant for CKD, CAD, ischemic cardiomyopathy with ICD, HFrEF, paroxysmal atrial fibrillation, HTN, T2DM, anemia, arthritis, urinary incontinence, secondary hyperparathyroidism, GERD . She has H/O JOSE CARLOS superimposed on CKD with creatinine going up to 8.0. JOSE CARLOS was thought to be 2/2 to combination of recent gastroenteritis and also patient being on diuretics (reported to be taking double the doses prescribed) and contrast exposure on 04/09. Her creatinine improved / stable with supportive care. She does not have any chest pain, shortness of breath, worsening pedal edema. She has no urinary symptoms. She has a renal mass and is followed by a urologist. She does not have any weight loss, hematuria, night sweats. She tries to be compliant with a low-sodium diet. Her diuretics are adjusted by cardiology- earlier this week torsemide dose was cut in half, patient states swelling is controlled and breathing remains comfortable. [facility] Medical History (Updated 04/28/24 @ 20:22 by Jaspreet Menchaca MD) Acute kidney injury Secondary hyperparathyroidism Essential (primary) hypertension Renal mass Chronic kidney disease, stage 3b Surgical History History of knee replacement Family History Mother Heart disease Father Lung cancer Social History Alcohol intake: never Patient Tobacco Use Status: Former Tobacco user Review of Systems Const Reports lethargy (reports intermittent/chronic, some days she is more tired) and Denies weakness Card Denies chest pain, Reports leg edema (mild, chronic) and Denies dyspnea Resp Denies dyspnea GI Denies abdominal pain, Denies diarrhea and Denies vomiting Denies hematuria, Denies difficulty voiding, Denies dysuria and Reports urinary incontinence (chronic, stress incontinence wears pad) Musc Denies arthralgias Skin/Breast Denies rash Neuro Denies paresthesias and Denies weakness Physical Exam Const General: comfortable and alert Resp Effort & Inspection: normal respiratory effort and able to speak in complete sentences Auscultation: clear to auscultation bilaterally Cardio Rate: regular rate Rhythm: regular rhythm Heart sounds: S1 normal heart sound present and S2 normal heart sound present GI Palpation (GI): Soft to palpation and nontender General: Yes no CVA tenderness Back/Spine/Pelvis Back: no CVA tenderness Skin Rashes: no rashes Extrem General: Yes edema (trace lower extremity edema) Office Meds epoetin [id number] 10,000 unit/mL injection solution Performing Provider: Dominga Jiang DNP, FNP-BC [facility] Administered by: Dominga Jiang DNP, FNP-BC on 09/08/24 14:48 Dose Route Admin Location Dispensed Lot Number Expiration Date [facility] [employer] 20,000 unit subcut LUE 2 mL [id number] 04/22/26 3715-8837-75 [employer] Total Dispensed Waste 2 mL 0 % Assessment & Plan Assessment & Plan (1) Anemia in chronic kidney disease (CKD): Code(s): N18.9 - Chronic kidney disease, unspecified; D63.1 - Anemia in chronic kidney disease Category: Medical Qualifiers: Chronic kidney disease stage: stage 4 (severe) Qualified Code(s): N18.4 - Chronic kidney disease, stage 4 (severe); D63.1 - Anemia in chronic kidney disease (2) Essential (primary) hypertension: Code(s): I10 - Essential (primary) hypertension Category: Medical (3) Secondary hyperparathyroidism: Code(s): N25.81 - Secondary hyperparathyroidism of renal origin Category: Medical (4) Chronic kidney disease, stage 3b: Code(s): N18.32 - Chronic kidney disease, stage 3b Category: Medical Plan Margo has stage III B CKD at baseline. She had JOSE CARLOS's from cardiorenal syndrome with loss of GFR. She is hemodynamically stable today Her volume status is optimal. Her diuretics are adjusted by [facility] cards- currently 20mg torsemide and 12.5mg spironolactone daily Her renal functions are close baseline- slight increase in creatinine, discussed ensuring adequate hydration while also monitoring for weight gain, increased swelling and/or shortness of breath. Hemoglobin 8.5- I gave 20,000 units of Procrit today. She is on calcitriol 0.25mcg daily. She is working on a low sodium diet, though she does have [employer] take-out on occasion. She works to stay active during the day. She should avoid nonsteroidal anti-inflammatory medications. She will follow up with her urologist for ongoing monitoring of her renal mass. She will follow up in [address] Menchaca, and will get labs a few days mac or. Orders: Orders Basic Metabolic Panel 1 Month D63.1 - Anemia in chronic kidney disease, N18.30 - Chronic kidney disease, stage 3 unspecified, N18.32 - Chronic kidney disease, stage 3b, N18.4 - Chronic kidney disease, stage 4 (severe) IRON PROFILE 1 Month D63.1 - Anemia in chronic kidney disease, N18.32 - Chronic kidney disease, stage 3b, N18.4 - Chronic kidney disease, stage 4 (severe) AMB Epoetin Injection Practice Supplied Today D63.1 - Anemia in chronic kidney disease, N18.4 - Chronic kidney disease, stage 4 (severe) Complete Blood Count Auto Diff 1 Month D63.1 - Anemia in chronic kidney disease, N18.32 - Chronic kidney disease, stage 3b, N18.4 - Chronic kidney disease, stage 4 (severe) Coding Level of Care Code Est Pt Level 3 (73567) Diagnoses Anemia in stage 4 chronic kidney disease N18.4; D63.1 Chronic kidney disease stage: stage 4 (severe) Essential (primary) hypertension I10 Secondary hyperparathyroidism N25.81 Chronic kidney disease, stage 3b N18.32
[2024-09-08 14:52] VITALS: BP 110/60; PULSE 69; O2SAT 98; BMI 26.0
== END 2024-09-08 15:11 | disposition home or self-care (01) ==
PROVIDERS: PCP Internal Medicine; Visit Provider Nurse Practitioner Family
DX: I12.9 Hypertensive chronic kidney disease with stage 1 through stage 4 chronic kidney disease, or unspecified chronic kidney disease (principal); N18.4 Chronic kidney disease, stage 4 (severe); D63.1 Anemia in chronic kidney disease; N25.81 Secondary hyperparathyroidism of renal origin; N18.32 Chronic kidney disease, stage 3b
CPT/HCPCS: 99213

== ENCOUNTER → 2024-09-08 14:41 | Outpatient (BNVA) | payer MEDICARE, OTHER, SELFPAY | PROVIDERS: PCP Internal Medicine; Visit Provider Internal Medicine Nephrology | DX: I12.9 Hypertensive chronic kidney disease with stage 1 through stage 4 chronic kidney disease, or unspecified chronic kidney disease (principal); N18.4 Chronic kidney disease, stage 4 (severe); N25.81 Secondary hyperparathyroidism of renal origin; D63.1 Anemia in chronic kidney disease | CPT/HCPCS: 96372; 99212; Q5106 ==

== ENCOUNTER 2024-10-13 15:45 | Outpatient (AMB) | payer MEDICARE, OTHER, SELFPAY ==
--- OUTSIDE RECORDS SUMMARY | 2024-10-10 23:59 | XMS_ITS | Continuity of Care Document ---
Author Organization [facility] Adult Address [address] [place] [address]- Support Name Relationship Address Phone ANI PEREZ [...] Unknown U navailable Care Team Providers Care Ground Worker Name Role Phone Mannie MUÑOZ, Vee [id number](s): 10/03/24 - 10/10/24 [facility] Adult [address] [place] [address]- Encounter Diagnosis Unintended weight loss(Discharge Diagnosis) - 10/03/24 Epigastric abdominal pain(Discharge Diagnosis) - 10/03/24 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) - 10/03/24 Allergic rhinitis(Discharge Diagnosis) - 10/03/24 Chronic kidney disease, stage 4 (severe)(Discharge Diagnosis) - 10/03/24 Anemia(Discharge Diagnosis) - 10/03/24 Heart failure with reduced ejection fraction(Discharge Diagnosis) - 10/03/24 Attending Physician: Vee Chand MD Encounter Type: Office Visit Allergies, Adverse Reactions, [...] virus vaccine, inactivated 3 01/21/07 Gi tobi [id number] 12y+ bivalent booster vax 01/28/22 Recorded SARS-CoV-2 (COVID-19) mRNA BNT-162b2 vac 02/04/21 Recorded SARS-CoV-2 (COVID-19) Ad26 vaccine 06/19/20 Record ed pneumococcal 13-valent vaccine 08/09/14 Given pneumococcal 13-valent vaccine 08/09/14 Given tetanus/diphtheria/pertussis, acel(Tdap) 02/12/14 Given Fluzone (oldterm) 4 12/26/13 Given pneumococcal 23-valent vaccine 05/06/13 Given Influenza Virus Vaccine (oldterm) 5 05/15/08 Given Pneumococcal Vaccine (oldterm) 6 10/29/05 Given 1Result Comment: [facility] [id number] 2Result Comment: [facility] [id number] 3Admin Note: VIS GIVEN 4Admin Note: [facility] VIS reviewed 5Admin Note: vis given 6Admin Note: vis given Medications Albuterol (Eqv-ProAir HFA) 90 mcg/inh inhalation aerosol 1 inhalation = 90 mcg, Inhalation, Every 4 hours, PRN as needed for shortness of breath or wheezing, # 6.7 Gm, 0 Refills, Maintenance, 05/06/24 9:51:00 AM EST, Aerosol, [facility], Partial fill upon patient request [...] tablet, Refills 1, Tot. Refills 1, Maintenance, 09/13/24 1:44:00 PM EDT, Route to Pharmacy Electronically, [facility], 165, cm, 07/31/24 15:35:00 EDT, Height, 68.8, kg, 05/04/24 9:42:00 EST, Dry Weight Start Date: 09/13/24 Status: Ordered Quantity: 45.0 Unit: tablet Repeat [...] DX URINRY INCONTINENCE R39.81, SIM 99 VENU [id number], 02/13/22 2:43:00 PM EST, Supply Start Date: 02/13/22 Status: Ordered Quantity: 180.0 Unit: each Repeat number: 12 Indications: Unspecified urinary incontinence; Flonase Allergy Relief 50 mcg/inh nasal spray 2 sprays = 100 mcg, Nares, Both, Daily, shake well before using, # 16 Gm, 1 Refills, Maintenance, 04/05/24 3:29:00 PM EST, [place], [facility], Partial fill [...] Quantity: 100.0 Unit: each Repeat number: 4 Indications: Type 2 diabetes mellitus without complications; Freestyle Lite Monitor See Instructions, # 1 each, Refills 0, Tot. Refills 0, Maintenance, use as directed to check glucose daily for dx DM type 2, 01/06/22 9:39:00 AM EDT, Supply, 173, cm, 01/02/22 9:41:00 EDT, Height, 74.4, kg, 12/15/21 6:29:00 EDT, Dry Weight Start Date: 01/06/22 Status: Ordered Quantity: 1.0 Unit: each Repeat number: 1 Indications: Type 2 diabetes mellitus without complications; Freestyle Lite Test Strips See Instructions, # 100 each, Refills 3, Tot. Refills 3, Maintenance, use to check glucose once daily for dx DM type 2, 01/06/22 9:41:00 AM EDT, Supply, 173, cm, 01/02/22 9:41:00 EDT, Height, 74.4, kg, 12/15/21 6:29:00 EDT, Dry Weight Start Date: 01/06/22 Status: Ordered Quantity: 100.0 Unit: each Repeat number: 4 Indications: Type 2 diabetes mellitus without complications; INCONTINENCE PADS INCONTINENCE PADS, See Instructions, # 300 each, Refills 11, Tot. Refills 11, Maintenance, ADULT EXTRA LARGE, USE 10X QD, DX URINRY INCONTINENCE R39.81, SIM 99 RICK AND MARIE [id number], 02/13/22 2:45:00 PM EST, Supply Start Date: [...] 11 Refills, Maintenance, 04/19/24 2:34:00 PM EST, [facility], 94, TAKE 30MLS (2 TABLESPOONS) BY MOUTH ONCE DAILY, 168, cm, 04/19/24 14:16:00 EST, Height, 78, kg, 04/14/24 22:55:00 EST, Dry Weight Start Date: 04/19/24 Status: Ordered Quantity: 2838.0 Unit: Unknown Repeat number: 12 loratadine 10 mg oral tablet 10 mg, 1, tablet, By Mouth, Daily, PRN, # 30 tablet, Refills 1, Tot. Refills 1, Maintenance, allergies, 08/29/24 10:35:00 AM EDT, Route to Pharmacy Electronically, [facility], Partial fill upon patient request if the prescription is for a schedule II opioid drug., 165, cm, 07/31/24 15:35:00 EDT, Height, 68.8, kg, 05/04/24 9:42:00 EST, Dry Weight Start Date: 08/29/24 Stop Date: 10/28/24 Status: Ordered Quantity: 30.0 Unit: tablet Repeat number: 2 Melatonin 2 TABLETS, By Mouth, Daily at bedtime, 0 Refills, Maintenance, 04/28/23 9:43:00 AM EST, Partial fill upon patient request if the prescription is for a schedule II opioid drug. Start Date: 04/28/23 Status: Ordered Repeat number: 1 Metoprolol Succinate ER 100 mg oral tablet, extended release 1 tablet, By Mouth, Daily, # 30 tablet, 11 Refills, Maintenance, 11/30/23 7:46:00 AM EDT, [facility], 157.9, cm, 10/14/23 [...] Quantity: 90.0 Unit: tablet Repeat number: 1 Readi-Cat 2 Smoothie Creamy Vanilla 2% oral suspension See Instructions, Use as directed, # 2 each, 0 Refills, Maintenance, 10/03/24 5:03:00 PM EDT, [facility], Partial fill upon patient request if the prescription is for a schedule II opioid drug., Use as directed, 165, cm, 10/03/24 15:45:00 EDT, Height, 68.8, kg, 05/04/24 9:42:00 EST, Dry Weight Start Date: 10/03/24 Status: Ordered Quantity: 2.0 Unit: each Repeat number: 1 Indications: Epigastric pain; Abnormal weight loss; sodium bicarbonate 325 mg oral tablet 1 tablet = 325 mg, By Mouth, Daily, Maintenance, 05/04/24 3:03:00 PM EST, Partial fill upon patient request if the prescription is for a schedule II opioid drug. Start Date: 05/04/24 Status: Ordered Repeat number: 1 spironolactone 25 mg oral tablet 25 mg, 1, tablet, By Mouth, Daily, this is a dose change from previous, # 30 tablet, Refills 3, Tot. Refills 3, Maintenance, 08/08/24 10:11:00 AM EDT, Route to Pharmacy Electronically, [facility], this is a dose change from previous, 165, cm, 07/31/24 15:35:00 EDT, Height, 68.8, kg, 05/04/24 9:42:00 EST, Dry Weight Start Date: 08/08/24 Status: Ordered Quantity: 30.0 Unit: tablet Repeat number: 4 torsemide 20 mg oral tablet 1 tablet = 20 mg, By Mouth, Daily, # 120 tablet, 6 Refills, Maintenance, 07/14/24 [...] Course Effective Dates Status Health Status Informant Allergic rhinitis Confirmed Active Anemia Confirmed Active Arthritis of right ankle [...] Dr Dalal/ [facility] Diagnosis Diagnosis Type Effective Dates Health Status Clinical Service Informant Allergic rhinitis Discharge Diagnosis 10/03/24 Chronic kidney disease, stage 4 (severe) Discharge Diagnosis 10/03/24 Anemia Discharge Diagnosis 10/03/24 Heart failure with reduced ejection fraction Discharge Diagnosis 10/03/24 Type 2 diabetes mellitus with chronic kidney disease Discharge Diagnosis 10/03/24 Unintended weight loss Discharge Diagnosis 10/03/24 Epigastric abdominal pain Discharge Diagnosis 10/03/24 Social History Social History Type Response Smoking [...] Start Date:06/15/23 End Date: Status:Met Progression:Not Met Note * Tapan Benitez: PERFORM Event Display: Patient Education/Instruction Authored Date: [id number] Ambulatory Adult Visit Summary [facility] [address] [place] [address] Name: BEVERLY TORRES : 1940?? Visit: 10/03/2024 15:34?? Ambulatory Visit Instructions ?? Your Care Team Primary Care Provider Vee Chand MD? This Visit Provider Vee Chand MD Your Diagnosis Allergic rhinitis Chronic kidney disease, stage 4 (severe) Anemia Heart failure with reduced ejection fraction Type 2 diabetes mellitus with chronic kidney disease Unintended weight loss Epigastric abdominal pain Vitals Signs Pulse Rate: 58 bpm Height: 165 cm Systolic Blood Pressure: 128 mm Hg Weight: 69.6 kg Diastolic Blood Pressure: 74 mm Hg Body Mass Index:??25.56 kg/m2??High Oxygen Saturation: 98 % Body surface area: 1.79 What to do next Scheduled Follow-Up Appointments Wednesday 3:30 PM EDT ?? With: Janell RUVALCABA, Jason W Where: [facility] Cardiology [address] [place] [address]- Status: Pending Wednesday 10:40 AM EDT ?? Where: [facility] [address] [place] [phone]- Status: Pending Wednesday 3:00 PM EDT ?? Where: [facility] [address] [place] [address]- Status: Pending Wednesday 3:30 PM EDT ?? Where: [facility] [address] [address]- Status: Pending Future Orders B Type Natriuretic Peptide (NT-proBNP) (NT ProBNP) - Routine, Once, 09/19/24 8:36:00 EDT, Single orRecurring Future Order, [facility], Blood?? Basic Metabolic Panel (BMP) - Routine, Once, STAT, 09/19/24 8:36:00 EDT, Future Order, [facility], Blood?? B Type Natriuretic Peptide (NT-proBNP) (NT ProBNP) - Routine, Once, 10/03/24 14:54:00 EDT, Single or Recurring Future Order, [facility], Blood?? Basic Metabolic Panel (BMP) - Routine, Once, STAT, 10/03/24 14:55:00 EDT, Future Order, [facility], Blood?? Ferritin - Routine, Once, 10/03/24 16:06:00 EDT, Order for Today, [facility], Blood?? Folate Level - Routine, Once, 10/03/24 16:06:00 EDT, Order for Today, [facility], Blood?? Iron + Iron Binding Capacity - Routine, Once, 10/03/24 16:06:00 EDT, Order for Today, [facility], Blood?? Vitamin B12 Level - Routine, Once, 10/03/24 16:06:00 EDT, Order for Today, [facility], Blood?? Comprehensive Metabolic Panel - Routine, Once, 10/03/24 16:06:00 EDT, Order for Today, [facility], Blood?? CBC w/ Differential - Routine, Once, 10/03/24 16:06:00 EDT, Order for Today, [facility], Blood?? TSH Rfx on Abnormal to Free T4 - Routine, Once, 10/03/24 16:07:00 EDT, Order for Today, [facility], Blood?? Sedimentation Rate (ESR) - Routine, Once, 10/03/24 16:07:00 EDT, Order for Today, [facility], Blood?? C Reactive Protein (CRP) - Routine, Once, 10/03/24 16:07:00 EDT, Order for Today, [facility], Blood?? Medications The [...] provider. What How Much When Why Instructions Unchanged Albuterol (Albuterol (Eqv-ProAir HFA) 90 mcg/ inh inhalation aerosol) 1 inhalation Inhalation Every 4 hours as needed for as needed for shortness of breath or wheezing Unchanged Allopurinol (allopurinol 100 mg oral tablet) [...] oral tablet) 1 tab(s) Oral Daily Unchanged Durable Medical Equipment (Freestyle [...] Both Daily shake well before using ?? Unchanged Loratadine (loratadine 10 mg oral [...] DX URINRY INCONTINENCE R39.81, SIM 99 VENU [id number] ?? Unchanged Miscellaneous Rx (INCONTINENCE PADS) See instructions ADULT EXTRA LARGE, USE 10X QD, DX URINRY INCONTINENCE R39.81, SIM 99 VENU [phone] ?? Unchanged Nitroglycerin (nitroglycerin 0.4 mg sublingual tablet) 1 tab(s) Sublingual Every 5 minutes as needed for as needed for chest pain not to exceed 3 doses/ 15 min--if pain persists, seek medical attention ?? Unchanged Pantoprazole (pantoprazole 40 mg oral delayed release tablet) 1 tab(s) Oral Daily Unchanged Potassium Chloride (Klor-Con 10 10 mEq oral tablet, extended release) 1 tab(s) Oral Daily Duration: 10 Days Unchanged sodium bicarbonate (sodium bicarbonate 325 mg oral tablet) 1 tab(s) Oral Daily Unchanged Spironolactone (spironolactone 25 mg oral tablet) 1 tab(s) Oral Daily this is a dose change ??from previous ?? Unchanged torsemide (torsemide 20 mg oral tablet) 1 tab(s) Oral Daily Test Performed Below is a partial list of the tests performed during your Visit. You may have had other tests and procedures not included in this list. Please discuss all test results with your provider. CBC w/ Differential?-- Results Pending -- Comprehensive Metabolic Panel?-- Results Pending -- CRP?-- Results Pending -- ESR?-- Results Pending -- Ferritin?-- Results Pending -- Folate Level?-- Results Pending -- Iron + Iron Binding Capacity?-- Results Pending -- POC HBA1C ([facility]) TSH Rfx on Abnormal to Free T4?-- Results Pending -- Vitamin B12 Level?-- Results Pending -- Lab Test Results Below is a partial list of the most recent Laboratory test results done during your Visit. You may have had other tests and procedures not included in this list. Please discuss all test results with your provider. Test Name Test Result Date/Time POC HBA1C ([facility]) 5.9 % 10/03/2024 15:55 EDT Medications and Immunizations Administered Medications Given During Visit No medications given during this visit.?? Allergies (NKA means No Known Allergies) Dilaudid??(Hallucinations) lisinopril??(cough,chest tightness) Common Emergency Awareness Tips IS IT A [...] are strongly encouraged to quit. Please call [employer] at [phone] or [phone] ([phone]) or log in to [email or web address] for referrals to smoking cessation programs. ?? The National Suicide Prevention Hotline is available 12/10 if you or someone you know needs to find a reason to keep living. By calling 8-125-563-[employer] (1623) you'll be connected to a skilled, trained counselor at a crisis center in your area. [facility] [employer] Portal You can view and manage your care through the patient portal or by using a health care theresa of your choosing. [employer] is a website that allows you to securely view your medical information including your hospital discharge summary, office visit summaries, medications and follow-up visits. You can also request appointments, renew medications, and request access to your medical information using a health care theresa of your choosing, or just ask a question. You can enroll at [email or web address] or register during your next office visit. [facility], in keeping with [facility] guidance, no longer requires face masks for [...] primary care provider, you may find a [facility] [employer] provider by calling [employer] at [phone]. Patient Care team information Care Team Personnel Name: Alejo Cadet MD Position: [facility] Physician - Gastroenterology Member Role: Lifetime Consulting Physician Address: [address] [facility], [address] [facility] [place] [address]- Telecom: Name: Rafita Edward MD Position: [facility] Renal MD Member Role: Lifetime Consulting Physician Address: [address] [place] [address] [address] [facility] [address]- Telecom: Name: Prashanth Rose RN Position: [facility] RN Member Role: Primary Care Nurse Name: Dorothea Wang RN Position: [facility] RN Member Role: Primary Care Nurse Name: Ledy Forbes RN Position: [facility] SN RN Member Role: Primary Care Nurse Name: Kavita Pagan RN Position: [facility] Onco RN Member Role: Primary Care Nurse Name: Prashanth Carmona RN Position: [facility] RN Member Role: Primary Care Nurse Name: Jaspreet Menchaca MD Position: [facility] Renal MD Member Role: Lifetime Consulting Physician Address: [address] [place] [address] [address] [facility] [place], [place] - Telecom: Name: Maryam Ayers RN Position: [facility] ED RN W/OE and Tasks Member Role: Primary Care Nurse Name: Maxine Diallo RN Position: [facility] Fingerer Member Role: Primary Care Nurse Name: Estephanie Carballo RN Position: [facility] RN Member Role: Primary Care Nurse Name: Odalys Chau RN Position: [facility] SN RN Member Role: Primary Care Nurse Name: Reji Willson RN Position: [facility] RN Member Role: Primary Care Nurse Name: Katie Holden RN Position: [facility] AMB Nurse Member Role: Primary Care Nurse Name: Evelyne Garcia RN Position: [facility] RN Member Role: Primary Care Nurse Name: Sol Nobles Position: [facility] AMB Nurse Member Role: Lifetime Consulting Physician Name: Johnna Baker RN Position: [facility] RN Member Role: Primary Care Nurse Name: Fantasma Ac RN Position: [facility] SN RN Member Role: Primary Care Nurse Name: Shanda Sharp RN Position: [facility] RN Member Role: Primary Care Nurse Name: Sabi Ruiz Position: [facility] etl programmer Member Role: Bun Machine Operator Name: Vee Chand MD Position: [facility] Physician - Primary Care Member Role: PCP Address: [address] [facility] [address] [place] [address]- [place] Telecom: Name: Ta Kolb RN Position: [facility] ED RN W/OE and Tasks Member Role: Primary Care Nurse Name: Neftaly Morley MD Position: [facility] Outreach Member Role: Lifetime Consulting Physician Address: [address] [facility] [place] [address]- [place] Telecom: Name: Eva Camarena RN Position: [facility] [place] Office Staff Member Role: Primary Care Nurse Name: Johnna Can CNM Position: [facility] Airborne Operations Superintendent Member Role: Primary Care Nurse Address: [address] [place] [address]- [place] Telecom: Name: Brenda Brown RN Position: [facility] SN RN Member Role: Primary Care Nurse Name: David Mcwilliams MD Position: [facility] Renal MD Member Role: Lifetime Consulting Physician Address: [address] [facility] [place] [address]- [place] Telecom: Name: Sabi Grady RN Position: [facility] RN Member Role: Primary Care Nurse Name: Sheryl Gaytan Position: [facility] RN Member Role: Primary Care Nurse Name: Gonzalo Naylor RN Position: [facility] RN Member Role: Primary Care Nurse Care Team Related Persons Name: ANI PEREZ Name: STEFFANY FUENTES Insurance Providers Guarantor name: BEVERLY TORRES Health Plan Information #: 1 Payer: MEDICARE B Payer Identifier: NA Member Number: [id number] Group Number: NA Subscriber Identifier: [id number] Relationship to Subscriber: self Coverage Type: NA Coverage Verification Date: NA Telecom: NA Address: NA Health Plan Information #: 2 Payer: FOR LIFE Payer Identifier: NA Member Number: [id number] Group Number: NA Subscriber Identifier: [id number] Relationship to Subscriber: self Coverage Type: For Life--Medicare Supplement Coverage Verification Date: [place]LEY Telecom: [place] Address: NA
--- NOTE | 2024-10-13 15:48 | HO.NEPHOV_ITS ---
Vital Signs 10/13/24 15:50 Height 5 ft 5 in Weight 152 lb 8 oz BMI 25.4 BP 110/60 Blood Pressure Location Lt brachial Position Sitting Pulse 64 Pulse Source Pulse Oximeter Pulse Oximetry (%) 98 Oxygen Delivery Method Room Air Intake Visit Reasons: 1 mon Retacrit f/u w/labs-Conf Motor Brakeman Required: No Accompanied by: Self / Same As Patient Allergies lisinopril (LISINOPRIL) Allergy (Severe, Verified 10/13/24 15:54) ANGIOEDEMA HPI Comments Details: Margo was seen in follow-up of her chronic kidney disease. She has medical history significant for CKD, CAD, ischemic cardiomyopathy with ICD, HFrEF, paroxysmal atrial fibrillation, HTN, T2DM, anemia, arthritis, urinary incontinence, secondary hyperparathyroidism, GERD . She has H/O JOSE CARLOS superimposed on CKD with creatinine going up to 8.0. JOSE CARLOS was thought to be 2/2 to combination of recent gastroenteritis and also patient being on diuretics ( reported to be taking double doses than prescribed.) and contrast exposure on 04/09. Her creatinine improved / stable with supportive care. She does not have any chest pain, shortness of breath, worsening pedal edema. She has no urinary symptoms. She has a renal mass and is followed by a urologist. She does not have any weight loss, hematuria, night sweats. She tries to be compliant with a low- sodium diet. Her diuretics are adjusted by cardiology [facility] Medical History (Updated 04/28/24 @ 20:22 by Jaspreet Menchaca MD) Acute kidney injury Secondary hyperparathyroidism Essential (primary) hypertension Renal mass Chronic kidney disease, stage 3b Surgical History History of knee replacement Family History Mother Heart disease Father Lung cancer Social History Alcohol intake: never Patient Tobacco Use Status: Former Tobacco user Review of Systems Const All systems reviewed & are unremarkable except as noted in HPI and below Physical Exam Vital Signs: Last Vital Signs Pulse 64 10/13/24 15:50 BP 110/60 10/13/24 15:50 Pulse Ox 98 10/13/24 15:50 Oxygen Delivery Method Room Air 10/13/24 15:50 BMI result Body Mass Index 25.4 Const General: comfortable and no acute distress Orientation/consciousness: patient oriented x3 HEENT Head: Yes normocephalic Mouth: Normal oral and palatal mucosa present Eyes EOM: EOMs intact bilaterally Neck Neck: Yes supple Resp Auscultation: clear to auscultation bilaterally Cardio Jugular venous distension: no JVD Rate: regular rate GI Palpation (GI): Soft to palpation Auscultation: normal bowel sounds General: Yes no CVA tenderness Back/Spine/Pelvis Back: no CVA tenderness Skin General skin exam: no rashes or lesions noted Neuro General: patient oriented x3 and moves all extremities Extrem General: Yes no pedal edema Office Meds epoetin [id number] 10,000 unit/mL injection solution Performing Provider: Jaspreet Menchaca MD [facility] Administered by: Jaspreet Menchaca MD on 10/13/24 15:59 Dose Route Admin Location Dispensed Lot Number Expiration Date [facility] Smasher Hand 40,000 unit subcut LUE 4 mL [id number] 04/22/26 1611-0725-16 PFIZ ER US PHARM Total Dispensed Waste 4 mL 0 % Assessment & Plan Assessment & Plan (1) Secondary hyperparathyroidism: Code(s): N25.81 - Secondary hyperparathyroidism of renal origin Category: Medical (2) Essential (primary) hypertension: Code(s): I10 - Essential (primary) hypertension Category: Medical (3) Anemia in chronic kidney disease (CKD): Code(s): N18.9 - Chronic kidney disease, unspecified; D63.1 - Anemia in chronic kidney disease Category: Medical Qualifiers: Chronic kidney disease stage: stage 4 (severe) Qualified Code(s): N18.4 - Chronic kidney disease, stage 4 (severe); D63.1 - Anemia in chronic kidney disease (4) Chronic kidney disease, stage 3b: Code(s): N18.32 - Chronic kidney disease, stage 3b Category: Medical (5) Renal mass: Code(s): N28.89 - Other specified disorders of kidney and ureter Category: Medical Plan Margo has stage III B CKD at baseline. She had JOSE CARLOS's from cardiorenal syndrome with loss of GFR. She is hemodynamically stable . Her volume status is optimal. Her diuretics are adjusted by [facility] cards. She should be on low- sodium diet. She should avoid nonsteroidal anti-inflammatory medications. Her renal functions are close baseline. I gave [id number] Units of Procrit in the office today. She will need activated Vitamin D soon. I shall explore whether she is a candidate for SGLT2 i after a 24 hour urine collection . I did not make any other medication changes today. She follows-up with her urologist for her renal mass. All questions were answered Orders: Orders Creatinine 1 Month D63.1 - Anemia in chronic kidney disease, N18.32 - Chronic kidney disease, stage 3b, N18.4 - Chronic kidney disease, stage 4 (severe) Blood Urea Nitrogen 1 Month D63.1 - Anemia in chronic kidney disease, N18.32 - Chronic kidney disease, stage 3b, N18.4 - Chronic kidney disease, stage 4 (severe) Ferritin 1 Month D63.1 - Anemia in chronic kidney disease, N18.4 - Chronic kidney disease, stage 4 (severe) IRON PROFILE 1 Month D63.1 - Anemia in chronic kidney disease, N18.4 - Chronic kidney disease, stage 4 (severe) AMB Epoetin Injection Practice Supplied Today D63.1 - Anemia in chronic kidney disease, N18.4 - Chronic kidney disease, stage 4 (severe) Electrolytes 1 Month D63.1 - Anemia in chronic kidney disease, N18.32 - Chronic kidney disease, stage 3b, N18.4 - Chronic kidney disease, stage 4 (severe) Complete Blood Count Auto Diff 1 Month D63.1 - Anemia in chronic kidney disease, N18.32 - Chronic kidney disease, stage 3b, N18.4 - Chronic kidney disease, stage 4 (severe) Coding Level of Care Code Est Pt Level 4 (38449) Diagnoses Secondary hyperparathyroidism N25.81 Essential (primary) hypertension I10 Anemia in stage 4 chronic kidney disease N18.4; D63.1 Chronic kidney disease stage: stage 4 (severe) Chronic kidney disease, stage 3b N18.32 Renal mass N28.89
--- OUTSIDE RECORDS SUMMARY | 2024-10-13 15:48 | XMS_ITS | Clinical Summary ---
Author Organization [facility] Address [address] [place] [phone] Phone Care Team Providers Care Supervisory Cbp Officer Name Role Phone Vee Chand MD Primary [...] 69 06/13/2024 1:53 PM EDT Temperature 36.5 C (97.7 F) 06/13/2024 1:53 PM EDT Respiratory Rate - - Oxygen Saturation 100% 06/13/2024 1:53 PM EDT Inhaled Oxygen Concentration - - Weight 74.8 kg (165 lb) 06/13/2024 1:53 PM EDT Height - - Body Mass Index - - Plan of Treatment Upcoming Encounters Date Type Department Care Team (Late st Contact Info) Description 07/03/2025 3:00 PM EDT Office Visit [facility] Hematology Oncology [address] [place] [phone] Jose E Mckeon MD [address] [place] [address] Health Maintenance Due Date Last Done Comments Diabetes: Annual GFR (Glomerular Filtration Rate) 1940 Diabetes: Annual Foot Exam 1950 Diabetes: Annual Retina Eye Exam 1950 Zoster Vaccines (1 of 2) 11/06/1959 RSV Immunization Adult Patients (1 - 1-dose 75+ series) 11/06/2015 Cholesterol Screening (Lipid Panel) 02/27/2022 Falls Risk Assessment 02/27/2022 Osteoporosis Screening (Bone Density Screening) 02/27/2022 Social Influencers of Health Screening 02/27/2022 Medicare Annual Wellness Visit 02/11/2023 02/11/2022 COVID-19 Vaccine ( season) 2023 01/28/2022, 02/04/2021, 06/19/2020, Additional history exists DTaP,Tdap,and Td Vaccines (2 - Td or Tdap) 02/13/2024 02/12/2014 Depression Screening 03/22/2024 Diabetes: Annual Urine Albumin-Creatinine Ratio (uACR) 06/08/2024 Diabetes: Blood Sugar Control Test (HGBA1C) 06/08/2024 Hypertension/CHF/CAD Annual BMP Blood Test 06/08/2024 Influenza Vaccine (#1) 2024 , 01/02/2022, 01/05/2021, Additional history exists Pneumococcal Vaccine: [...] patient's age to complete this topic Insurance [address] [place] [phone] MEDICARE [facility] Advance Directives Documents on File Type Date Recorded 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
--- OUTSIDE RECORDS SUMMARY | 2024-10-13 15:48 | XMS_ITS | Data Portability ---
Author Organization [place] - [facility] Address [address] [place] [address] Care Team Providers Care Gasateria Attendant Name Role Phone NEIL LINCOLN Primary Care Provider [phone] Assessment Encounter Date Assessment Date Assessment LastModified by Organization Details LastModified Time 04/12/2020 04/12/2020 Proper Personal Protective Equipment (PPE), including gloves, gown, shoe covers, eye protection and masks were donned and doffed appropriately and all equipment cleaned using approved technique with germicidal disposable wipes prior to and after care of this patient according to [facility]'s infection prevention protocols. 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 -If symptoms worsen then go to ER -F/u with PCP regarding abdominal mass -F/u with heme regarding chronic anemia -Continue to increase PO intake as tolerated, continue with home PT, good sleep hygiene discussed Thank you for your visit with [facility] today. We cannot always find the exact [...] in your condition between 8am-10pm, [facility] at [phone] to help navigate your care. In order to obtain further information and compare any laboratory results/values, I have accessed patient records on the [employer]. This information was pertinent in my medical [...] written and verbal report given to EMS. [email or web address] Not available 11/11/2021 15:09:03 Plan of Treatment Reminders Order Date Submit Date Provider Last Modified By Organization Details Last Modified Time Details Appointments None recorded. Lab rapid SARS CoV 2 Ag, QL IA, respirator y specimen 2021 022 [email or web address] 783 Spr - Home, [address] [place], [address], 15:10:14 rapid flu (A+B) 2021 022 jossie [address] [facility] - Home, [address] [place], [address], 2 15:11:19 BMP + ionized calcium, serum or plasma 2020 021 COURTNEY [facility], [address], [place], [address], 17:14:20 CBC w/ auto diff 2020 021 VENUS [facility] (Centralized Electronic Ordering - All Locations), Patient Can Go To The Location Of Their Choice, [id number] 23:05:03 BMP + ionized calcium, serum or plasma - repeat due to Cl error 2020 021 ATHENAFAX [facility], [address], [place], [address], 15:40:20 urinalysis , dipstick [facility] [address], [place], [address], 14:27:32 hepatic function panel, serum 2020 021 [facility] Patient Can Go To The Location Of Their Choice, [id number] 00:12:48 Referral None recorded. Procedures None recorded. Surgeries None recorded. Imaging None recorded. Medication Orders None recorded. Patient TargetsNo targets recorded. 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 We cannot always find the exact cause of your symptoms during your initial visit. Please follow up with your primary care provider or specialist within 24-48 hours to be rechecked or seek medical attention if your symptoms do not go away or get worse. If you develop any new or worsening symptoms and need after hours care, please go to nearest ER and/or call 911. If you have additional concerns or develop a change in your condition between 8am-10pm, please call [facility] at [phone] to help navigate your care. [email or web address] Not available 04/12/2020 20:00:38 Reason for Referral None Reported. Results Created Date Observation Date Name Description Value Unit Range Abnormal Flag Note LastModifiedBy Organization Detail LastModifiedTime 07/09/19 21 07/08/2020 urina lysis , dipst ick Appearance clear Not Available Spr - [facility] [address] [place], [address], 07/08/2020 14:11:30 07/09/19 21 07/08/2020 urina lysis , dipst ick Color yellow Not Available Spr - Home [address] [place], [address], 07/08/2020 14:11:30 07/09/19 21 07/08/2020 urina lysis , dipst ick Glucose negati ve Not Available Spr - Home [address] [place], [address], 07/08/2020 14:11:30 07/09/19 21 07/08/2020 urina lysis , dipst ick Bilirubin negati ve Not Available Spr - Home [address], [place], [address], 07/08/2020 14:11:30 07/09/19 21 07/08/2020 urina lysis , dipst ick Ketones NEG Not Available Spr - Home [address] [place], [address], 07/08/2020 14:11:30 07/09/19 21 07/08/2020 urina lysis , dipst ick [facility] 1.015 Not Available Spr - Home [address] [place], [address], 07/08/2020 14:11:30 07/09/19 21 07/08/2020 urina lysis , dipst ick Blood NEG Not Available Spr - Home [address] [place], [address], 07/08/2020 14:11:30 07/09/19 21 07/08/2020 urina lysis , dipst ick pH 5.0 Not Available Spr - Home [address] [place], [address], 07/08/2020 14:11:30 07/09/19 21 07/08/2020 urina lysis , dipst ick Protein negati ve Not Available Spr - Home [address] [place], [address], 07/08/2020 14:11:30 07/09/19 21 07/08/2020 urina lysis , dipst ick Urobilirubin negati ve Not Available Spr - Home [address] [place], [address], 07/08/2020 14:11:30 07/09/19 21 07/08/2020 urina lysis , dipst ick Nitrites NEG Not Available Spr - David e [address] [place], [address], 07/08/2020 14:11:30 07/09/19 21 07/08/2020 urina lysis , dipst ick Leukocytes NEG Not Available Spr - H ome [address] [place], [address], 07/08/2020 14:11:30 07/09/19 21 07/08/2020 CBC w/ auto diff WBC 4.7 K/mm3 (4.0-1 1.0) Not Available [facility] (Centralized Electronic Ordering - All Locations) Patient Can Go To The Location Of Their Choice, [id number] 07/08/2020 23:05:03 07/09/19 21 07/08/2020 CBC w/ auto diff RBC 2.60 M/mm3 (4.20- 5.40) low Not Available [facility] (Centralized Electronic Ordering - All Locations) Patient Can Go To The Location Of Their Choice, [id number] 07/08/2020 23:05:03 07/09/19 21 07/08/2020 CBC w/ [...] Go To The Location Of Their Choice, [address] 07/09/2020 00:12:48 07/09/1907/08/2020 BMP + ioniz ed calci um, serum or plasm a glu 128 mg/dL 70-105 Not Available [address], [address], 07/17/2020 17:15:25 07/09/19 21 07/08/2020 BMP + ioniz ed calci um, serum or plasm a BUN 18 mg/dL 8-26 Not Available [address], [address], 07/17/2020 17:15:25 07/09/19 21 07/08/2020 BMP + ioniz ed calci um, serum or plasm a crea 1.2 mg/dL 0.6-1. 3 Not Available [address], [address], 07/17/2020 17:15:25 07/09/19 21 07/08/2020 BMP + ioniz ed calci um, serum or plasm a Na 140 mmol/ L 138-14 6 Not Available [address], [address], 07/17/2020 17:15:25 07/09/19 21 07/08/2020 BMP + ioniz ed calci um, serum or plasm a K 3.7 mmol/ L 3.5-4. 9 Not Available [address], [address], 07/17/2020 17:15:25 07/09/19 21 07/08/2020 BMP + ioniz ed calci um, serum or plasm a cL 104 mmol/ L 98-109 Not Available [address], [address], 07/17/2020 17:15:25 07/09/19 21 07/08/2020 BMP + ioniz ed calci um, serum or plasm a TCO2 28 mmol/ L 24-29 Not Available [address], [address], 07/17/2020 17:15:25 07/09/19 21 07/08/2020 BMP + ioniz ed calci um, serum or plasm a angap 12 mmol/ L 10-20 Not Available [address], [address], 07/17/2020 17:15:25 07/09/19 21 07/08/2020 BMP + ioniz ed calci um, serum or plasm a ica 1.22 mmol/ L 1.12-1 .32 Not Available [address], [address], 07/17/2020 17:15:25 07/09/19 21 07/08/2020 BMP + ioniz ed calci um, serum or plasm a HCT 28 %pcv 38-51 Not Available [address], [address], 07/17/2020 17:15:25 07/09/19 21 07/08/2020 BMP + ioniz ed calci um, serum or plasm a Hb 9.5 g/dL 12-17 Not Available [address], [address], 07/17/2020 17:15:25 07/09/19 21 07/08/2020 BMP + ioniz ed calci um, serum or plasm a glu 130 mg/dL 70-105 Not Available [address], [address], 07/17/2020 17:14:19 07/09/19 21 07/08/2020 BMP + ioniz ed calci um, serum or plasm a BUN 20 mg/dL 8-26 Not Available [address], [address], 07/17/2020 17:14:19 07/09/19 21 07/08/2020 BMP + ioniz ed calci um, serum or plasm a crea 1.2 mg/dL 0.6-1. 3 Not Available [address], [address], 07/17/2020 17:14:19 07/09/19 21 07/08/2020 BMP + ioniz ed calci um, serum or plasm a Na 140 mmol/ L 138-14 6 Not Available [address], [address], 07/17/2020 17:14:19 07/09/19 21 07/08/2020 BMP + ioniz ed calci um, serum or plasm a K 3.7 mmol/ L 3.5-4. 9 Not Available [address], [address], 07/17/2020 17:14:19 07/09/19 21 07/08/2020 BMP + ioniz ed calci um, serum or plasm a cL mmol/ L 98-109 Not Available [address], [address], 07/17/2020 17:14:19 07/09/19 21 07/08/2020 BMP + ioniz ed calci um, serum or plasm a TCO2 24 mmol/ L 24-29 Not Available [address], [address], 07/17/2020 17:14:19 07/09/19 21 07/08/2020 BMP + ioniz ed calci um, serum or plasm a angap mmol/ L 10-20 Not Available [address] [place], [address], 07/17/2020 17:14:19 07/09/19 21 07/08/2020 BMP + ioniz ed calci um, serum or plasm a ica 1.24 mmol/ L 1.12-1 .32 Not Available [facility] [address] [place], [address], 07/17/2020 17:14:19 07/09/19 21 07/08/2020 BMP + ioniz ed calci um, serum or plasm a HCT 28 %pcv 38-[address] Not [address] [facility] [address] [place], [address], 07/17/2020 17:14:19 07/09/19 21 07/08/2020 BMP + ioniz ed calci um, serum or plasm a Hb 9.5 g/dL 12-17 Not Available [address] [place], [address], 07/17/2020 17:14:19 11/12/19 22 11/11/2021 rapid flu (A+B) Flu A (ref: neg) negati ve Not Available Spr - Home [address] [place], [address], 11/11/2021 15:10:40 11/12/19 22 11/11/2021 rapid flu (A+B) Flu B (ref: neg) negati ve Not Available Spr - [address] [place], [address], 11/11/2021 15:10:40 11/12/19 22 11/11/2021 rapid flu (A+B) Control Visual ized/V alid Not Available Spr - [address] [place], [address], 11/11/2021 15:10:40 11/12/19 22 11/11/2021 rapid SARS CoV 2 Ag, QL IA, respi rator y speci men Covid-19 (ref: neg) negati ve Not Available Spr - Home [address] [facility], [place], [address], 11/11/2021 15:09:43 11/12/19 22 11/11/2021 rapid SARS CoV 2 Ag, QL IA, respi rator y speci men Control Visual ized/V alid Not Available Spr - Home [address] [facility], [place], [address], 11/11/2021 15:09:43 11/12/19 22 11/11/2021 rapid SARS CoV 2 Ag, QL IA, respi rator y speci men Location [facility], [address] [place] [address], [id number] Not Available Spr - Home [address] [place], [address], 11/11/2021 15:09:43 Result Notes None recorded. Procedures Surgical History Date Name Laterality Status Provider Name and Address Organization Details Recorded Time 07/09/19 21 Venipuncture - completed MARIA M LOPEZ [address] [place], [address], [place] [facility] 07/08/2020 13:58:24 07/09/19 21 ECG Interpretation - completed MARIA M LOPEZ [address] [place], [address], [place] [facility] 07/08/2020 14:08:14 percutaneous coronary intervention completed ARIEL DYSON NP [address] [place], [address], [place] [facility] 04/12/2020 19:00:50 cardiac pacemaker procedure completed ARIEL DYSON NP [address] [place], [address], [place] [facility] 04/12/2020 19:01:35 Imaging Results [...] Pulse oximetry Heart rate Respiratory rate Systolic And Diastolic Provider Name and Address Organization Details Last Updated DateTime 1 98.9 [degF] 96 % 96 % 79 /min 18 /min 110/70 mm[Hg] Not Available [facility] 1 18:56:45 Date Recorded Oxygen saturation Oxygen saturation in Arterial blood by Pulse oximetry Respiratory rate Heart rate Body temperature Systolic And Diastolic Provider Name and Address Organization Details Last Updated DateTime 1 97 % 97 % 18 /min 102 /min 98.4 [degF] 130/60 mm[Hg] Not Available [facility] 1 13:15:25 Date Recorded Heart rate Body temperature Oxygen saturation Oxygen saturation in Arterial blood by Pulse oximetry Respiratory rate Systolic And Diastolic Provider Name and Address Organization Details Last Updated DateTime 2 62 /min 98.5 [degF] 96 % 96 % 18 /min 130/60 mm[Hg] Not Available [facility] 2 13:55:12 Social History Question Answer Notes LastModified by Organizat ion Details LastModified Time Tobacco Smoking Status Former Smoker ARIEL DYSON NP [address], [place], [address], [place] [facility] 04/12/2020 18:58:02 Do You Have An Advance Directive? Yes [email or web address] Information not available 04/12/2020 What Is Your Code Status? Full Code Information not available 04/12/2020 Within The Past 12 Months, Has It Happened That The Food You Bought Just Didn't Last And You Didn't Have Money To Get More. No [email or web address] Information not available 04/12/2020 Within The Past 12 Months, Have You Worried That Your Food Would Run Out Before You Got Money To Buy More. No [email or web address] Information not available 04/12/2020 Fall Risk: Do You Feel Unsteady When Standing Or Walking? Yes Information not available 04/12/2020 We Know That How And When People Interact With Friends And Family Can Be Very Different From Person To Person. How Often Do You Have The Opportunity To See Or Talk To People That You Care About And Feel Close To? (Ex: Talking To Friends On The Phone Or Visiting Friends Or Family Or Going To Protestant Or Club Meetings) 5 Or More Times Per Week [email or web address] Information not available 04/12/2020 Excessive Alcohol Or Drug Use No [email or web address] Information not available 04/12/2020 We Know From Many Of Our Patients That Covering All Of Their Costs Can Be Difficult At Times. This Can Cause Stress And Impact Health. In The Past Year, Have You Been Unable To Get Any Of The Following When It Was Really Needed? No [email or web address] Information not available 04/12/2020 What Is Your Housing Situation Today? I Have Housing [email or web address] Information not available 04/12/2020 Would You Like Help Connecting To Resources? None [email or web address] Information not available 04/12/2020 What Was The Date Of Your Most Recent Tobacco Screening? 04/04/2013 [email or web address] Information not available 04/12/2020 How Much Tobacco Do You Smoke? 0.25 PPD Information not available 04/12/2020 How Many Years Have You Smoked Tobacco? 15 [email or web address] Information not available 04/12/2020 Sex: Unknown Functional Status None recorded. Mental Status None recorded. Family History Relationship Description Onset Age of this Age Resolved Age Notes LastModified by Organization Details LastModified Time Father No current problems or disability [email or web address] Not available 04/12 18:57:55 Mother No current problems or disability [email or web address] Not available 04/12 18:57:55 Medical History Condition Response Diabetes Y Coronary Artery Disease Y High Cholesterol Y Cancer N Pulmonary Embolism N Stroke N Hypertension Y COPD N Asthma N Kidney Disease Y Gynecological HistoryNo gynecological history recorded. Obstetrics History GPAL:G 0 P 0 0 0 0 Immunizations Vaccine Type Date Status Note Provider Nam e and Address Organization Details Recorded Time Influenza, split virus, quadrivalent, preservative 0 completed ARIEL DYSON NP [address] [place], [address], [place] [facility] 04/12/2020 18:57:29 Past Encounters Encounter ID Performer Location Encounter Start Date Encounter Closed Date Diagnosis/Indication Diagnosis SNOMED-CT Code Diagnosis ICD10 Code Diagnosis Note [id number] ARIEL DYSON NP [facility] - HOME [address] [address] 04/12/2020 18:50:30 04/14/2020 23:53:31 Gout 66482703 M10.9 Congestive heart failure 70248326 I50.9 Knee pyoge trang arthritis 012438228 M00.9 Deep venou s thrombosis 654064691 I82.409 [id number] MARIA M LOPEZ [facility] - HOME [address] [facility] [address] 07/08/2020 13:07:51 07/10/2020 15:58:40 Weakness present 223748006 M62.81 Tachycardia 9878773 R00. 0 Anemia 713619412 D64.9 Abdominal mass 716572583 R19.00 Physical deconditioning 8294031009 9102 R68.89 [id number] September JORDON Davalos [facility] - HOME [address] [facility] [place] [address] 11/11/2021 13:50:10 11/12/2021 08:26:50 Abdominal pain 97156799 R10.9 Cough 18355200 R05.1 Health Concerns Section Related Observation LastModified by Organization Detai ls LastModified Time None Recorded Concern Status LastModified by Organization Details LastModified Time None Recorded Advance Directives Directive Y: Payers Insurance Date Sequence Insurance Name Policy Number Policy Conklin Covered Member ID Conklin Member ID Guarantor Name 11/17/2021 2 FOR LIFE ( - MEDICARE SUPPLEMENT) Margo Fang [id number] Margo Fang 08/30/2020 2 FOR LIFE ( - MEDICARE SUPPLEMENT) Margo Fang [id number] Margo Fang 04/12/2020 1 *SELF PAY* Margo Fang [id number] Margo Fang 11/11/2021 1 [place] [employer] Margo Fang [id number] Margo Fang 04/12/2020 1 [place] [employer] Margo Fang [id number] Margo Fang 07/08/2020 PENDING Margo Fang [id number] Margo Fang Notes Date Note Type Note Provider Name and Address Organization Details Recorded Time 04/12/2020 text/html General HPI Template - DHReported by Patient 79 yo female This patient is new [...] May, ARIEL DYSON NP [address], [place], [address], [place] [facility] 04/17/2020 13:18:18 07/08/2020 text/html 79 y/o F with PMHx sig for [...] up. MARIA M LOPEZ [address], [place], [address], [place] [facility] 07/08/2020 15:46:18 11/11/2021 text/html 79 y/o F with PMHx sig for CAD s/p PCI and AICD, HLD, HTN, CKD with renal mass, and chronic anemia s/p transfusions cause unknown, known to but new to this provider.-Patient developed cold [...] night. September Anoop, JORDON [address], [place], [address], [place] [facility] 11/11/2021 15:11:46 OBGyn Episode No OBEpisode recorded.
--- OUTSIDE RECORDS SUMMARY | 2024-10-13 15:48 | XMS_ITS | Clinical Summary ---
Author Organization [facility] Address [address] [place] [address] Care Team Providers Care Industrial Psychology Teacher Name Role Phone Vee Chand MD Primary [...] Td or Tdap) 02/13/2024 02/12/2014 Influenza Vaccine (#1) 2024 2, 01/05/2021, 01/02/2021, Additional history exists Pneumococcal Vaccine Completed 08/09/2014, 06/09/2014, 06/20/2013, Additional history exists Hepatitis B Vaccines Aged Out No long er eligible based on patient's age to complete this topic RSV Ped < 20 months Aged Out No longe r eligible based on patient's age to complete this topic Care Teams Industrial Psychology Teacher Relationship Specialty Start Date End Date Vee Chand MD [address] [place] [address] PCP - General Internal Medicine 08/18/19
--- OUTSIDE RECORDS SUMMARY | 2024-10-13 15:48 | XMS_ITS | Clinical Summary ---
Author Organization [facility] Address [address] [place] [address] Phone Care Team Providers Care Class C Driver Name Role Phone Vee Chand MD Primary [...] 08/07/2020 Stage 3a chronic kidney disease 08/07/2020 Mwlaq-nb-tpmwtyy renal failure 12/16/2019 Acute urinary tract infection [...] 12/07/2019 08/07/2020 Atherosclerotic heart diseas e of [place] coronary artery without angina pectoris 12/07/2019 08/07/2020 [...] Date Last Done Comments Influenza Vaccine (#1) 2024 , 12/21/2019, 12/19/2019, Additional history exists Pneumococcal Vaccine: 50+ Years Completed 08/09/2014, 06/09/2014, 06/20/2013, Additional history exists Pneumococcal Vaccine: Peds (0 to 5 Years) and At-Risk Patients (6 to 49 Years) Discontinued 08/09/2014, 06/09/2014, 06/20/2013, Additional history exists Hepatitis B Vaccine Aged Out No longe r eligible based on patient's age to complete this topic Insurance Medicare [facility] [address] [place] [id number] Medicare [facility] [address] [place] [phone] Care Teams Class C Driver Relationship Specialty Start Date End Date Vee Chand MD [address] [place] [address] [address] [place] [address] PCP - General Internal Medicine 08/07/20
[2024-10-13 15:50] VITALS: BP 110/60; PULSE 64; O2SAT 98; BMI 25.4
== END 2024-10-13 16:13 | disposition home or self-care (01) ==
LOC: HO.HKA 15:45
PROVIDERS: PCP Internal Medicine; Visit Provider Internal Medicine Nephrology
DX: N25.81 Secondary hyperparathyroidism of renal origin (principal); I12.9 Hypertensive chronic kidney disease with stage 1 through stage 4 chronic kidney disease, or unspecified chronic kidney disease; N18.4 Chronic kidney disease, stage 4 (severe); D63.1 Anemia in chronic kidney disease; N18.32 Chronic kidney disease, stage 3b; N28.89 Other specified disorders of kidney and ureter
CPT/HCPCS: 99214

== ENCOUNTER → 2024-10-13 15:45 | Outpatient (BNVA) | payer MEDICARE, OTHER, SELFPAY | PROVIDERS: PCP Internal Medicine; Visit Provider Internal Medicine Nephrology | DX: I12.9 Hypertensive chronic kidney disease with stage 1 through stage 4 chronic kidney disease, or unspecified chronic kidney disease (principal); D63.1 Anemia in chronic kidney disease; N18.32 Chronic kidney disease, stage 3b; N18.4 Chronic kidney disease, stage 4 (severe); N25.81 Secondary hyperparathyroidism of renal origin; N28.89 Other specified disorders of kidney and ureter; Z79.899 Other long term (current) drug therapy | CPT/HCPCS: 96372; 99212; Q5106 ==

== ENCOUNTER 2024-11-15 16:02 | Outpatient (AMB) | payer MEDICARE, OTHER, SELFPAY ==
[2024-11-15 16:09] VITALS: BP 124/60; PULSE 71; O2SAT 97; BMI 26.8
--- NOTE | 2024-11-15 16:09 | HO.NEPHOV ---
Vital Signs 11/15/24 16:09 Height 5 ft 5 in Weight 161 lb BMI 26.8 BP 124/60 Blood Pressure Location Lt brachial Position Sitting Pulse 71 Pulse Source Pulse Oximeter Pulse Oximetry (%) 97 Oxygen Delivery Method Room Air Intake Visit Reasons: 1mon Retacrit f/u w/labs-Conf Embedded Systems Designer Required: No Accompanied by: Daughter Allergies lisinopril (LISINOPRIL) Allergy (Severe, Verified 11/15/24 16:09) ANGIOEDEMA HPI Comments Details: Margo was seen in follow-up of her chronic kidney disease. She has medical history significant for CKD, CAD, ischemic cardiomyopathy with ICD, HFrEF, paroxysmal atrial fibrillation, HTN, T2DM, anemia, arthritis, urinary incontinence, secondary hyperparathyroidism, GERD . She has H/O JOSE CARLOS superimposed on CKD with creatinine going up to 8.0. JOSE CARLOS was thought to be 2/2 to combination of recent gastroenteritis and also patient being on diuretics ( reported to be taking double doses than prescribed.) and contrast exposure on 04/09. Her creatinine improved / stable with supportive care. She does not have any chest pain, shortness of breath, worsening pedal edema. She has no urinary symptoms. She has a renal mass and is followed by a urologist. She does not have any weight loss, hematuria, night sweats. She tries to be compliant with a low-sodium diet. Her diuretics are adjusted by cardi[facility] Medical History (Updated 04/28/24 @ 20:22 by Jaspreet Menchaca MD) Acute kidney injury Secondary hyperparathyroidism Essential (primary) hypertension Renal mass Chronic kidney disease, stage 3b Surgical History History of knee replacement Family History Mother Heart disease Father Lung cancer Social History Alcohol intake: never Patient Tobacco Use Status: Former Tobacco user Review of Systems Const All systems reviewed & are unremarkable except as noted in HPI and below Physical Exam Vital Signs: Last Vital Signs Pulse 71 11/15/24 16:09 BP 124/60 11/15/24 16:09 Pulse Ox 97 11/15/24 16:09 Oxygen Delivery Method Room Air 11/15/24 16:09 BMI result Body Mass Index 26.8 Const General: comfortable and no acute distress Orientation/consciousness: patient oriented x3 HEENT Head: Yes normocephalic Mouth: Normal oral and palatal mucosa present Eyes EOM: EOMs intact bilaterally Neck Neck: Yes supple Resp Auscultation: clear to auscultation bilaterally Cardio Jugular venous distension: no JVD Rate: regular rate GI Palpation (GI): Soft to palpation Auscultation: normal bowel sounds General: Yes no CVA tenderness Back/Spine/Pelvis Back: no CVA tenderness Skin General skin exam: no rashes or lesions noted Neuro General: patient oriented x3 and moves all extremities Extrem General: Yes no pedal edema Office Meds epoetin jorge-epbx 10,000 unit/mL injection solution Performing Provider: Jaspreet Menchaca MD Performing Location: [facility] [place] [facility] Administered by: Jaspreet Menchaca MD on 11/15/24 16:25 Dose Route Admin Location Dispensed Lot Number Expiration Date [facility] Clinical Education Assistant 40,000 unit subcut LUE 4 mL [id number] 04/22/26 5011-1396-84 PFI[employer]ER US PHARM Total Dispensed Waste 4 mL 0 % Assessment & Plan Assessment & Plan (1) Anemia in chronic kidney disease (CKD): Code(s): N18.9 - Chronic kidney disease, unspecified; D63.1 - Anemia in chronic kidney disease Category: Medical Qualifiers: Chronic kidney disease stage: stage 4 (severe) Qualified Code(s): N18.4 - Chronic kidney disease, stage 4 (severe); D63.1 - Anemia in chronic kidney disease (2) Chronic kidney disease, stage 3b: Code(s): N18.32 - Chronic kidney disease, stage 3b Category: Medical (3) Secondary hyperparathyroidism: Code(s): N25.81 - Secondary hyperparathyroidism of renal origin Category: Medical Plan Margo has stage III B CKD at baseline. She had JOSE CARLOS's from cardiorenal syndrome with loss of GFR. She is hemodynamically stable . Her volume status is optimal. Her diuretics are adjusted by [facility] cards. She should be on low-sodium diet. She should avoid nonsteroidal anti-inflammatory medications. Her renal functions are close baseline. I gave [id number] Units of Procrit in the office today. She may need PRBC. She will need activated Vitamin D soon. I did not make any other medication changes today. She follows-up with her urologist for her renal mass. All questions were answered Orders: Orders Complete Blood Count Auto Diff 3 Weeks D63.1 - Anemia in chronic kidney disease, N18.32 - Chronic kidney disease, stage 3b, N18.4 - Chronic kidney disease, stage 4 (severe), N25.81 - Secondary hyperparathyroidism of renal origin AMB Epoetin Injection Practice Supplied Today D63.1 - Anemia in chronic kidney disease, N18.4 - Chronic kidney disease, stage 4 (severe) Coding Level of Care Code Est Pt Level 4 (14398) Diagnoses Anemia in stage 4 chronic kidney disease N18.4; D63.1 Chronic kidney disease stage: stage 4 (severe) Chronic kidney disease, stage 3b N18.32 Secondary hyperparathyroidism N25.81
--- OUTSIDE RECORDS SUMMARY | 2024-11-15 17:01 | XMS_ITS | Clinical Summary ---
Author Organization [facility] Address [address] [place] [address] Phone Care Team Providers Care Greenbelt Name Role Phone Vee Chand MD Primary [...] 08/07/2020 Stage 3a chronic kidney disease 08/07/2020 [id number] renal failure 12/16/2019 Acute urinary tract infection [...] 12/07/2019 08/07/2020 Atherosclerotic heart diseas e of [place] coronary artery without angina pectoris 12/07/2019 08/07/2020 [...] age to complete this topic Insurance Medicare [facility] [address] [place] [id number] Medicare [facility] [address] [place] [id number] Care Teams Greenbelt Relationship Specialty Start Date End Date Vee Chand MD [address] [place] [address] [address] [place] [address] PCP - General Internal Medicine 08/07/20
--- OUTSIDE RECORDS SUMMARY | 2024-11-15 17:01 | XMS_ITS | Clinical Summary ---
Author Organization [facility] Address [address] [place] [address] Care Team Providers Care Pit Operator Name Role Phone Vee Chand MD [...] age to complete this topic Care Teams Pit Operator Relationship Specialty Start Date End Date Vee Chand MD [address] [place] [address] PCP - General Internal Medicine 08/18/19
--- OUTSIDE RECORDS SUMMARY | 2024-11-15 17:01 | XMS_ITS | Clinical Summary ---
Author Organization [facility] Address [address] [place] [phone] Phone Care Team Providers Care Director Presales Name Role Phone Vee Chand MD Primary [...] Description 07/03/2025 3:00 PM EDT Office Visit [facility] Hematology Oncology [address] [place] [phone] Jose E Mckeon MD [address] [place] [address] Health Maintenance Due Date Last Done Comments Diabetes: Annual GFR (Glomerular Filtration Rate) 1940 Diabetes: Annual Foot Exam 1950 Diabetes: Annual Retina Eye Exam 1950 Zoster Vaccines (1 of 2) 1990 RSV Immunization Adult Patients (1 - 1-dose [...] patient's age to complete this topic Insurance [address] [place] [address] [id number] [facility] Advance Directives Documents on File Type Date Recorded Patient Direct Support Worker Expl anation Health Care Decision (hx) 07/15/2019 AD DAVILA DIRECTIVE Health Care Decision (hx) 06/17/2019 AD DAVILA DIRECTIVE Health Care Decision (hx) 06/08/2019 AD DAVILA DIRECTIVE Care Teams Director Presales Relationship Specialty Start Date End Date Vee Chand MD [address] [place] [phone] PCP - General Internal Medicine 08/18/19
== END 2024-11-15 16:33 | disposition home or self-care (01) ==
LOC: HO.HKA 16:03
PROVIDERS: PCP Internal Medicine; Visit Provider Internal Medicine Nephrology
DX: N18.4 Chronic kidney disease, stage 4 (severe) (principal); D63.1 Anemia in chronic kidney disease; N18.32 Chronic kidney disease, stage 3b; N25.81 Secondary hyperparathyroidism of renal origin
CPT/HCPCS: 99214

== ENCOUNTER → 2024-11-15 16:02 | Outpatient (BNVA) | payer MEDICARE, OTHER, SELFPAY | PROVIDERS: PCP Internal Medicine; Visit Provider Internal Medicine Nephrology | DX: N18.4 Chronic kidney disease, stage 4 (severe) (principal); D63.1 Anemia in chronic kidney disease; N25.81 Secondary hyperparathyroidism of renal origin; I12.9 Hypertensive chronic kidney disease with stage 1 through stage 4 chronic kidney disease, or unspecified chronic kidney disease | CPT/HCPCS: 96372; 99212; Q5106 ==

== ENCOUNTER 2024-12-10 08:21 | Emergency (ER) | payer MEDICARE, OTHER, SELFPAY ==
--- NOTE | ~2024-12-10 | XR_ITS ---
CLINICAL HISTORY: lt wrist pain 4 views left wrist Comparison: None Findings: No carpal bone fractures or carpal malalignment. Distal radiocarpal joint intact. Radial and ulnar styloid preserved. Mild degenerative changes involving the radiocarpal joint, 1st carpometacarpal joint and trapezium trapezoid scaphoid complex. Osteopenia. Soft tissue swelling. Minimal calcifications of the triangular fibrocartilage complex. No radiopaque foreign body. Impression: 1. Osteopenia. Soft tissue swelling. Non erosive osteoarthritic changes. This document has been electronically signed by: Solo Villalta MD on 12/10/2024 12:49:24
--- NOTE | ~2024-12-10 | US_ITS ---
CLINICAL HISTORY: LUE swelling Left upper extremity duplex venous Doppler Comparison: None Technique: Grayscale/color and duplex doppler sonographic evaluation of the venous system within left upper extremity. Findings: Left upper extremity Internal jugular vein: Patent Subclavian vein: Patent Axillary vein: Patent Brachial, Basilic and cephalic veins: Patent where seen Ulnar and radial veins: Patent. Soft tissues: No focal abnormality Impression: 1. Negative for left upper extremity occlusive thrombus. 2. No soft tissue abnormalities. This document has been electronically signed by: Solo Villalta MD on 12/10/2024 12:36:53
--- NOTE | ~2024-12-10 | XR_ITS ---
CLINICAL HISTORY: Lt hand pain 3 views left hand Comparison: None Findings: No fractures, subluxations or dislocations. No periostitis or bony destruction. Joint space narrowing with erosions involving the distal interphalangeal joints and 1st interphalangeal joint consistent with erosive osteoarthritis. Overhanging osteophytes seen distally. Ulnar styloid perserved. Osteopenia. Soft tissue swelling. Mild degenerative changes involving the 1st carpometacarpal joint and trapezium trapezoid scaphoid complex non erosive. No radiopaque foreign body. Impression: 1. 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 Non erosive osteoarthritic changes of the wrist. Osteopenia. Soft tissue swelling. This document has been electronically signed by: Solo Villalta MD on 12/10/2024 12:43:46
[2024-12-10 08:25] VITALS: BP 112/81; PULSE 78; O2SAT 98
[2024-12-10 08:27] VITALS: BP 147/59; PULSE 67; RESP 18; O2SAT 94; BMI 27.3
[2024-12-10 08:37] VITALS: TEMP 36.4
--- OUTSIDE RECORDS SUMMARY | 2024-12-10 08:46 | XMS_ITS | Clinical Summary ---
Author Organization [facility] Address [address] [place] [address] Phone Care Team Providers Care Bronze Chaser Name Role Phone Vee Chand MD Primary [...] 08/07/2020 Stage 3a chronic kidney disease 08/07/2020 [id number] renal failure 12/16/2019 Acute urinary tract infection [...] 12/07/2019 08/07/2020 Atherosclerotic heart diseas e of [place] coronary artery without angina pectoris 12/07/2019 08/07/2020 [...] Insurance Medicare [facility] [address] [place] [id number] Medicare [facility] [address] [place] [id number] Care Teams Bronze Chaser Relationship Specialty Start Date End Date Vee Chand MD [address] [place] [address] [address] [place] [address] PCP - General Internal Medicine 08/07/20
--- OUTSIDE RECORDS SUMMARY | 2024-12-10 08:46 | XMS_ITS | Clinical Summary ---
Author Organization [facility] Address [address] [place] [address] Care Team Providers Care Petrol Tanker Driver Name Role Phone Vee Chand MD [...] or (1 - 1-dose 75+ series) 11/06/2015 DTap / Tdap / Td (2 - Td or Tdap) 02/13/2024 02/12/2014 COVID-19 Vaccine ( season) 2024 02/04/2021, 06/19/2020, 06/18/2020, Additional history exists Influenza Vaccine (#1) 2024 2, 01/05/2021, 01/02/2021, Additional history exists Pneumococcal Vaccine Completed 08/09/2014, 06/09/2014, 06/20/2013, Additional history exists Hepatitis B Vaccines Aged Out No long er eligible based on patient's age to complete this topic RSV Ped < 20 months Aged Out No longe r eligible based on patient's age to complete this topic Care Teams Petrol Tanker Driver Relationship Specialty Start Date End Date Vee Chand MD [address] [place] [address] PCP - General Internal Medicine 08/18/19
--- OUTSIDE RECORDS SUMMARY | 2024-12-10 08:46 | XMS_ITS | Clinical Summary ---
Author Organization [facility] Address [address] [place] [phone] Phone Care Team Providers Care Cashier Assistant Name Role Phone Vee Chand MD [...] 07/03/2025 3:00 PM EDT Office Visit [facility] Hematology Oncology [address] [place] [phone] Jose E Mckeon MD [address] [place] [address] Health Maintenance Due Date Last Done Comments [...] 02/27/2022 Medicare Annual Wellness Visit 02/11/2023 02/11/2022 DTaP,Tdap,and Td Vaccines (2 - Td or Tdap) 02/13/2024 02/12/2014 Depression Screening 03/22/2024 Diabetes: Annual Urine Albumin-Creatinine Ratio (uACR) 06/08/2024 Diabetes: Blood Sugar Control Test (HGBA1C) 06/08/2024 Hypertension/CHF/CAD Annual BMP Blood Test 06/08/2024 COVID-19 Vaccine ( season) 2024 01/28/2022, 02/04/2021, 06/19/2020, Additional history exists Influenza Vaccine (#1) 2024 , 01/02/2022, 01/05/2021, [...] patient's age to complete this topic Insurance [address] [place] [id number] MEDICARE [facility] Advance Directives Documents on File Type Date Recorded Patient Financial Supervisor Expl anation Health Care Decision (hx) 07/15/2019 AD DAVILA DIRECTIVE Health Care Decision (hx) 06/17/2019 AD DAVILA DIRECTIVE Health Care Decision (hx) 06/08/2019 AD DAVILA DIRECTIVE Care Teams Cashier Assistant Relationship Specialty Start Date End Date Vee Chand MD [address] [phone] PCP - General Internal Medicine 08/18/19
--- NOTE | 2024-12-10 08:50 | PC.NURSE ---
84 F receieved covid shot in L arm on 12/07, now having swelling of L arm and L hand, decreased mobility of left hand, and 10/10 pain. A+Ox4, calm, cooperative. Pt ambulates with a walker at baseline, unsteady on her feet. CSMs present to L hand but decreased ability to move left hand noted, cap refill <2sec. Ring removed from finger on L hand. RR even and unlabored, denies CP or SOB. Pt c/o difficulty using left arm to get ready, no other complaints.
--- NOTE | 2024-12-10 09:25 | ED.GENADULT ---
HPI - General Adult General Chief complaint: Extremity Problem Stated complaint: LUE EDEMA, AGE NOT GIVEN BY EMS Time Seen by Provider: 12/10/24 08:41 Source: patient and EMS Mode of arrival: EMS Limitations: no limitations History of Present Illness ED Provider: MARIA M Gutiérrez HPI narrative: This is an 84-year-old female past medical history of hypokalemia, hypertension, hyperparathyroidism secondary, CKD, renal mass presenting to the emergency department with complaints of left hand, wrist swelling ongoing since yesterday. She denies associated trauma but does report she got a flu shot to the left upper extremity on of this week. She reports significant pain to the wrist and hand this has never happened to her before. No history of blood clots. Reports painful range of motion to wrist and fingers and reports she can not grab things with that hand. Denies chest pain, shortness breath, fevers, chills, headache, vision changes, dizziness and weakness. Related Data Home Medications ?Medication ?Instructions ?Recorded ?Confirmed albuterol sulfate 90 mcg/actuation inhalation 02/10/23 09/08/24 aerosol inhaler allopurinol 100 mg tablet 50 mg PO DAILY 02/10/23 09/08/24 atorvastatin 80 mg tablet 80 mg PO DAILY 02/10/23 09/08/24 calcitriol 0.25 mcg capsule 0.25 mcg PO DAILY 02/10/23 09/08/24 calcium 315 mg (as 1 tab PO BID 02/10/23 09/08/24 citrate)-vitamin D3 6.25 mcg (250 unit) tablet fluticasone propionate 50 1 spray intranasal BID PRN 02/10/23 09/08/24 mcg/actuation nasal spray,suspension melatonin 3 mg capsule 6 mg PO BEDTIME PRN 02/10/23 09/08/24 metoprolol succinate 100 mg 100 mg PO DAILY 02/10/23 09/08/24 tablet,extended release 24 hr mirabegron 50 mg tablet,extended 50 mg PO DAILY 02/10/23 09/08/24 release 24 hr (Myrbetriq) pantoprazole 40 mg tablet,delayed 40 mg PO DAILY 02/10/23 09/08/24 release ergocalciferol (vitamin D2) 1,250 1,250 mcg PO QWEEK 08/11/23 09/08/24 mcg (50,000 unit) capsule torsemide 20 mg tablet 20 mg PO Q OTHER DAY 10/13/24 Previous Rx's ?Medication ?Instructions ?Recorded potassium chloride 10 mEq 10 meq PO DAILY #10 tabs 04/28/24 tablet,extended release meclizine 12.5 mg tablet 12.5 mg PO BID dizziness #30 tabs 08/04/24 sodium bicarbonate 325 mg tablet 325 mg PO DAILY #30 tabs 12/04/24 acetaminophen 325 mg tablet 650 mg (2 x 325 mg) PO Q6H PRN 12/10/24 (Tylenol) fever or pain #30 tabs ferrous sulfate 325 mg (65 mg 325 mg PO DAILY #14 tabs 12/10/24 iron) tablet morphine 15 mg immediate release 15 mg PO Q6H PRN pain 5 days #10 12/10/24 tablet tabs prednisone 20 mg tablet 40 mg (2 x 20 mg) PO DAILY 5 days 12/10/24 #10 tabs Allergies Allergy/AdvReac Type Severity Reaction Status Date / Time lisinopril (LISINOPRIL) Allergy Severe ANGIOEDEMA Verified 12/10/24 08:35 Review of Systems Review of Systems: Yes all other systems are reviewed and are negative [facility] Past Medical History Attestation statement: The following information was validated with the patient. Source: old records reviewed and nursing notes reviewed Medical History Acute kidney injury Secondary hyperparathyroidism Essential (primary) hypertension Renal mass Chronic kidney disease, stage 3b Surgical History History of knee replacement Family History Family History Mother Heart disease Father Lung cancer Social History Social History Alcohol intake: never Patient Tobacco Use Status: Former Tobacco user Smoked in Last 30 Days: No Use of substances other than those prescribed or required for medical reasons: No Advance Directives: No Advance Directives Information Provided: Yes Do you have a plan to hurt others: No Plan Physical Exam ED Exam Exam: Appearance: Alert.? Oriented X3.? No acute distress.? Head: Normocephalic, atraumatic, no step-offs or deformities Eyes: Pupils equal, round and reactive to light.? ENT: Pharynx normal.? Neck: Normal inspection.? Neck supple.? CVS: Normal heart rate and rhythm.? Pulses normal.? Respiratory: No respiratory distress.? Breath sounds normal.? Abdomen: Soft and nontender.? Skin: Skin warm and dry.? Normal skin color.? Normal skin turgor.?+ there is swelling noted to the entire left hand, wrist, fingers with mild erythema overlying the dorsal aspect of hand. Extremities: No lower extremity edema.? No calf ttp. 5/5 strength to bilateral lower extremities and right upper extremity. Left upper extremity with painful range of motion to left wrist/fingers therefore difficulty assessing strength to left wrist/hand. Shoulder and elbow strength normal. Back: No midline tenderness, no C-spine tenderness, full range of motion, no CVA tenderness bilaterally Neuro: Oriented X 3.? No motor deficit.? No sensory deficit. CN 2-12 intact Vital Signs: Vital Signs - 24 hr 12/10/24 08:27 12/10/24 08:37 12/10/24 12:40 Temperature 97.5 F 98.0 F Pulse Rate 67 68 Respiratory Rate 18 16 Blood Pressure 147/59 H 136/64 Pulse Oximetry 94 97 Oxygen Delivery Method Room Air Room Air BMI result Body Mass Index 27.3 Vital signs state Course Reevaluation(s) Reevaluation #1: CBC appears to be at patient's baseline. No acute findings. She does have a macrocytic anemia, she is asymptomatic no lightheadedness, dizziness, weakness, she last had blood work on 12/16/2021 where her hemoglobin was 7.2. No hypotension, tachycardia, dizziness, weakness. No indication for transfusion at this time will have her follow up with PCP and I will send ferrous sulfate. She denies bleeding or blood in urine/stool Patient's inflammatory markers elevated as well as her uric acid also elevated. Chemistry does show elevated BUN and creatinine however appears to be around her baseline she has history of CKD. Will have her follow up with PCP for this as well. UA x-rays of hand and wrist and Doppler of left upper extremity pending. Time: 10:43 Reevaluation #2: X-ray still pending. DVT study negative. Time: 12:41 Reevaluation #3: Patient does not have leukocytosis, no fever this was rapid and progression. This all favors gout unlikely osteomyelitis. 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 Nonerosive osteoarthritic changes of the wrist. Osteopenia noted. Soft tissue swelling. X-ray of the wrist with osteopenia and soft tissue swelling non erosive osteoarthritic changes. I will treat this patient for gout with p.o. steroids. Will also give Tylenol. Prior to discharge patient is still reports significant pain will give p.o. morphine at this time. Educated patient on diagnosis and treatment plan, answered all question, patient verbalizes understanding. At this time patient will be discharged home, advised to return with new or worsening symptoms. Educated on worrisome signs and symptoms and when to return. At this time I feel comfortable discharge home. Time: 13:02 Medications Administered Discontinued Medications Generic Name Dose Route Start Last Admin Trade Name Freq PRN Reason Stop Dose Admin Acetaminophen 975 mg 12/10/24 09:28 12/10/24 09:44 Acetaminophen 325 Mg Tablet PO 12/10/24 09:29 975 mg ONCE ONE Administration Medical Decision Making Medical Decision Making [facility] Narrative: 09 84-year-old female presents with hand/wrist swelling since yesterday to the left side. Reports painful range of motion Physical exam + there is swelling noted to the entire left hand, wrist, fingers with mild erythema overlying the dorsal aspect of hand. Extremities: No lower extremity edema.? No calf ttp. 5/5 strength to bilateral lower extremities and right upper extremity. Left upper extremity with painful range of motion to left wrist/fingers therefore difficulty assessing 2+ radial pulses equal bilateral History and physical exam concerning for possible DVT versus gout. Unlikely septic wrist/fingers. This could be a developing cellulitis. Plan labs, imaging. Differential Diagnosis Differential Diagnoses: The differential diagnosis associated with the presentation includes (History and physical exam concerning for possible DVT versus gout. Unlikely septic wrist/fingers. This could be a developing cellulitis.) Admission/Observation Consideration of admission/observation: Escalation of care including admission/observation considered Lab Data [facility] Lab Attestation statement: I reviewed the patient's lab results. 12/10/24 09:46 12/10/24 09:46 Labs: Lab Results 12/10/24 Range/Units 09:46 WBC 3.5 L (4.8-10.8) X10*3/uL RBC 2.17 L (4.20-5.50) X10*6/uL Hgb 7.2 L (12.0-16.0) g/dl Hct 22.4 L (37.0-47.0) % MCV 103.2 H (80.0-98.0) fL MCH 33.2 H (27.0-33.0) pg MCHC 32.1 (31.0-35.0) g/dl RDW 14.0 (11.0-16.0) % Plt Count 162 (160-400) X10*3/uL MPV 10.5 (9.4-12.3) fL Immature Gran % (Auto) 0.3 (0.0-0.4) % Neut % (Auto) 61.5 (45-73) % Lymph % (Auto) 21.8 (20-40) % Gibson % (Auto) 13.2 H (2-11) % Eos % (Auto) 2.3 (0-4) % Baso % (Auto) 0.9 (0-2) % Lymph # (Auto) 0.8 L (1.2-4.9) X10*3/uL Gibson # (Auto) 0.5 (0.1-1.2) X10*3/uL Eos # (Auto) 0.1 (0.0-0.4) X10*3/uL Baso # (Auto) 0.0 (0.0-0.2) X10*3/uL Abs Immat Gran (auto) 0.01 (0.00-0.03) X10*3/uL Absolute Neuts (auto) 2.2 (2.0-8.3) x10*3/uL Absolute Nucleated RBC 0.000 (0.0-0.012) X10*3/uL Nucleated RBC % (auto) 0.0 (0.0-0.2) /100WBC ESR 122 H (0-20) MM/HR PT 12.1 (10.9-12.4) SEC INR 1.1 (0.9-1.1) Sodium 140 (135-145) mmol/L Potassium 4.2 (3.3-5.1) mmol/L Chloride 108 (96-108) mmol/L Carbon Dioxide 23 (22-29) mmol/L Anion Gap 13 (12-20) BUN 34 H (9-16) mg/dL Creatinine 2.02 H (0.5-1.4) mg/dL Estim Creat Clear Calc 20.9 Estimated GFR 23 Random Glucose 94 (60-115) mg/dL Uric Acid 9.0 H (2.4-5.7) mg/dL Calcium 9.3 D (8.4-10.2) mg/dL Total Bilirubin 0.4 (0.0-1.0) mg/dL AST 20 (5-31) U/L ALT 6 (0-31) U/L Alkaline Phosphatase 84 (39-117) U/L C-Reactive Protein 6.76 H (< or = 0.50) mg/dL Total Protein 6.7 (6.5-8.0) g/dL Albumin 3.8 (3.5-5.0) g/dL Independent Interpretation I performed an independent interpretation of an: Plain X-Ray (Impression: 1. Osteopenia. Soft tissue swelling. Non erosive osteoarthritic changes.) and Ultrasound (Findings: Left upper extremity Internal jugular vein: Patent Subclavian vein: Patent Axillary vein: Patent Brachial, Basilic and cephalic veins: Patent where seen Ulnar and radial veins: Patent. Soft tissues: No focal abnormality Impression: 1. Negative for left upper extremity occlusive thrombus. ) Interpretation: Impression: 1. 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 Non erosive osteoarthritic changes of the wrist. Osteopenia. Soft tissue swelling. Radiology Impression Discussion of test interpretation with radiology: I have reviewed the radiologist's reading. External Record Review External record reviewed: Inpatient record, Office record, Outpatient record and Outside ED record Prescription Management I considered prescription management with: Pain Medication and Other (see dc tylenol given here ) Critical Care Time Critical Care Time Critical Care Time: Yes Total Critical Care Time: 35 Attestation: I attest to this time spent taking care of the patient, obtaining history, physical, reviewing labs, imaging, treatment of patients condition +/- specialist/hospitalist consult +/- procedure Discharge Plan Discharge Clinical Impression: Gout, Left upper extremity swelling Anemia in chronic kidney disease (CKD) Qualifiers: Chronic kidney disease stage: stage 4 (severe) Qualified Code(s): N18.4 - Chronic kidney disease, stage 4 (severe) Patient Disposition: Home, Self-Care Instructions: Chronic Kidney Disease Diet (DC), Gout (ED), Anemia (ED) Additional Instructions: Take your medications as prescribed. If you were prescribed antibiotics today, it is important that you take your medication to their entirety, do not skip any doses, do not finish them early. Follow-up with your primary care provider this week. Return to the emergency department with new or worsening symptoms. Such as fevers, chills, chest pain, shortness of breath, nausea, vomiting, dizziness, headache, vision changes, lethargy In case of emergency call 911 Prescriptions: New acetaminophen [Tylenol] 325 mg tablet 650 mg PO Q6H PRN (Reason: fever or pain) Qty: 30 0RF prednisone 20 mg tablet 40 mg PO DAILY 5 Days Qty: 10 0RF ferrous sulfate 325 mg (65 mg iron) tablet 325 mg PO DAILY Qty: 14 0RF morphine 15 mg tablet 15 mg PO Q6H PRN (Reason: pain) 5 Days Qty: 10 0RF Rx Instructions: Partial Fill upon patient request. No Action sodium bicarbonate 325 mg tablet 325 mg PO DAILY Qty: 30 6RF ergocalciferol (vitamin D2) 1,250 mcg (50,000 unit) capsule 1,250 mcg PO QWEEK meclizine 12.5 mg tablet 12.5 mg PO BID Qty: 30 0RF Myrbetriq 50 mg tablet extended release 24 hr 50 mg PO DAILY pantoprazole 40 mg tablet,delayed release (DR/EC) 40 mg PO DAILY metoprolol succinate 100 mg tablet extended release 24 hr 100 mg PO DAILY atorvastatin 80 mg tablet 80 mg PO DAILY calcitriol 0.25 mcg capsule 0.25 mcg PO DAILY albuterol sulfate 90 mcg/actuation HFA aerosol inhaler inhalation calcium citrate-vitamin D3 315 mg-6.25 mcg (250 unit) tablet 1 tab PO BID allopurinol 100 mg tablet 50 mg PO DAILY fluticasone propionate 50 mcg/actuation spray,suspension 1 spray intranasal BID PRN melatonin 3 mg capsule 6 mg PO BEDTIME PRN torsemide 20 mg tablet 20 mg PO Q OTHER DAY potassium chloride 10 mEq tablet extended release 10 meq PO DAILY Qty: 10 0RF Referrals: Physician,Unknown J [Primary Care Provider, Medical] Print Language: Swedish
[2024-12-10 09:51] LABS: Hematocrit 22.4 % (37.0-47.0); Hemoglobin 7.2 g/dl (12.0-16.0); Imm Gran Abs Auto 0.01 X10*3/uL (0.00-0.03); Imm Gran Pct Auto 0.3 % (0.0-0.4); Lymphocytes Absolute Auto 0.8 X10*3/uL (1.2-4.9); MANUAL DIFF FLAG NO; Mean Corpuscular HGB Conc 32.1 g/dl (31.0-35.0); Mean Corpuscular Hemoglobin 33.2 pg (27.0-33.0); Mean Corpuscular Volume 103.2 fL (80.0-98.0); NRBC Abs Auto 0.000 X10*3/uL (0.0-0.012); NRBC Pct Auto 0.0 /100WBC (0.0-0.2); Platelet Count 162 X10*3/uL (160-400); Red Blood Count 2.17 X10*6/uL (4.20-5.50); White Blood Count 3.5 X10*3/uL (4.8-10.8)
[2024-12-10 09:57] LABS: INTERNATIONAL NORM RATIO 1.1 (0.9-1.1); Prothrombin Time 12.1 SEC (10.9-12.4)
[2024-12-10 10:14] LABS: Alanine Aminotransferase 6 U/L (0-31); Albumin Level 3.8 g/dL (3.5-5.0); Alkaline Phosphatase 84 U/L (39-117); Anion Gap 13 (12-20); Aspartate Amino Transferase 20 U/L (5-31); Blood Urea Nitrogen 34 mg/dL (9-16); Calcium 9.3 mg/dL (8.4-10.2); Carbon Dioxide 23 mmol/L (22-29); Chloride 108 mmol/L (96-108); Creatinine Clr Calc Pharmacy 20.9; Estimated Glomerular Filt Rate 23; Potassium 4.2 mmol/L (3.3-5.1); Sodium 140 mmol/L (135-145); Total Protein 6.7 g/dL (6.5-8.0); Uric Acid 9.0 mg/dL (2.4-5.7)
[2024-12-10 12:40] VITALS: BP 136/64; PULSE 68; RESP 16; TEMP 36.7; O2SAT 97
[2024-12-10] MEDS: Morphine Sulfate Immed Release 15 MG TABLET PO (13:07)
[2024-12-10 13:32] LABS: Appearance Urine Cloudy; Glucose Urine UA Negative (Negative); PH 6.0 (5.0-9.0); Specific Gravity - Urine 1.010 (1.005-1.025); UMIC TRIGGER UACC YES
[2024-12-10 13:37] LABS: UACC Culture Trigger YES
[2024-12-10 13:49] VITALS: BP 136/64; PULSE 68; RESP 16; TEMP 36.7; O2SAT 97
== END 2024-12-10 13:49 | disposition home or self-care (01) ==
PROVIDERS: Physician Assistant; Emergency Provider Emergency Medicine
DX: M10.042 Idiopathic gout, left hand (principal); R60.0 Localized edema; M79.642 Pain in left hand; Z79.899 Other long term (current) drug therapy; Z87.891 Personal history of nicotine dependence
CPT/HCPCS: 36415; 73110; 73130; 80053; 81001; 84550; 85025; 85610; 85652; 86140; 87086; 93971; 99284

== ENCOUNTER 2024-12-15 16:17 | Outpatient (AMB) | payer MEDICARE, OTHER, SELFPAY ==
--- OUTSIDE RECORDS SUMMARY | 2024-12-15 16:19 | XMS_ITS | Clinical Summary ---
Author Organization [facility] Address [address] [place] [address] Care Team Providers Care Board Saw Runner Name Role Phone Vee Chand MD Primary [...] age to complete this topic Care Teams Board Saw Runner Relationship Specialty Start Date End Date Vee Chand MD [address] [place] [id number] PCP - General Internal Medicine 08/18/19
--- OUTSIDE RECORDS SUMMARY | 2024-12-15 16:19 | XMS_ITS | Clinical Summary ---
Author Organization [facility] Address [address] [place] [phone] Phone Care Team Providers Care Digital Account Supervisor Name Role Phone Vee Chand MD Primary [...] Description 07/03/2025 3:00 PM EDT Office Visit [facility] Hematology Oncology [address] [place] [phone] Jose E Mckeon MD [address] [place] [address] Health Maintenance Due Date Last Done Comments [...] patient's age to complete this topic Insurance [address] [place] [id number] MEDICARE [facility] Advance Directives Documents on File Type Date Recorded Patient Radiologist Diagnostic Expl anation Health Care Decision (hx) 07/15/2019 AD DAVILA DIRECTIVE Health Care Decision (hx) 06/17/2019 AD DAVILA DIRECTIVE Health Care Decision (hx) 06/08/2019 AD DAVILA DIRECTIVE Care Teams Digital Account Supervisor Relationship Specialty Start Date End Date Vee Chand MD [address] [place] [id number] PCP - General Internal Medicine 08/18/19
--- OUTSIDE RECORDS SUMMARY | 2024-12-15 16:19 | XMS_ITS | Clinical Summary ---
Author Organization [facility] Address [address] [place] [address] Phone Care Team Providers Care Banking Management Consulting Manager Name Role Phone Vee Chand MD Primary [...] 08/07/2020 Stage 3a chronic kidney disease 08/07/2020 [id number] renal failure 12/16/2019 Acute urinary tract infection [...] 12/07/2019 08/07/2020 Atherosclerotic heart diseas [place] coronary artery without angina pectoris 12/07/2019 [...] age to complete this topic Insurance Medicare [facility] [address] [place] [id number] Medicare [facility] [address] [place] [id number] Care Teams Banking Management Consulting Manager Relationship Specialty Start Date End Date Vee Chand MD [address] [place] [address] [address] [place] [address] PCP - General Internal Medicine 08/07/20
--- NOTE | 2024-12-15 16:21 | HO.NEPHOV ---
Vital Signs 12/15/24 16:23 Height 5 ft 5 in Weight 159 lb 6 oz BMI 26.5 BP 120/60 Blood Pressure Location Lt brachial Position Sitting Pulse 63 Pulse Source Pulse Oximeter Pulse Oximetry (%) 99 Oxygen Delivery Method Room Air Intake Visit Reasons: 1mon f/u w/labs-Conf Package Designer Required: No Accompanied by: Daughter Allergies lisinopril (LISINOPRIL) Allergy (Severe, Verified 12/15/24 16:22) ANGIOEDEMA HPI Comments Details: Margo was seen in follow-up of her chronic kidney disease. She has medical history significant for CKD, CAD, ischemic cardiomyopathy with ICD, HFrEF, paroxysmal atrial fibrillation, HTN, T2DM, anemia, arthritis, urinary incontinence, secondary hyperparathyroidism, GERD . She has H/O JOSE CARLOS superimposed on CKD with creatinine going up to 8.0. JOSE CARLOS was thought to be 2/2 to combination of recent gastroenteritis and also patient being on diuretics ( reported to be taking double doses than prescribed.) and contrast exposure on 04/09. Her creatinine improved / stable with supportive care. She does not have any chest pain, shortness of breath, worsening pedal edema. She has no urinary symptoms. She has a renal mass and is followed by a urologist. She does not have any weight loss, hematuria, night sweats. She tries to be compliant with a low-sodium diet. Her diuretics are adjusted by cardiology. She recently had acute attack of gout and was seen in ER who had prescribed prednisone with improvement. [facility] Medical History Acute kidney injury Secondary hyperparathyroidism Essential (primary) hypertension Renal mass Chronic kidney disease, stage 3b Surgical History History of knee replacement Family History Mother Heart disease Father Lung cancer Social History Alcohol intake: never Patient Tobacco Use Status: Former Tobacco user Review of Systems Const All systems reviewed & are unremarkable except as noted in HPI and below Physical Exam Vital Signs: Last Vital Signs Pulse 63 12/15/24 16:23 BP 120/60 12/15/24 16:23 Pulse Ox 99 12/15/24 16:23 Oxygen Delivery Method Room Air 12/15/24 16:23 BMI result Body Mass Index 26.5 Const General: comfortable and no acute distress Orientation/consciousness: patient oriented x3 HEENT Head: Yes normocephalic Mouth: Normal oral and palatal mucosa present Eyes EOM: EOMs intact bilaterally Neck Neck: Yes supple Resp Auscultation: clear to auscultation bilaterally Cardio Jugular venous distension: no JVD Rate: regular rate GI Palpation (GI): Soft to palpation Auscultation: normal bowel sounds General: Yes no CVA tenderness Back/Spine/Pelvis Back: no CVA tenderness Skin General skin exam: no rashes or lesions noted Neuro General: patient oriented x3 and moves all extremities Extrem General: Yes no pedal edema Office Meds epoetin [id number] 10,000 unit/mL injection solution Performing Provider: Jaspreet Menchaca MD [facility] Administered by: Jaspreet Menchaca MD on 12/15/24 16:38 Dose Route Admin Location Dispensed Lot Number Expiration Date [facility] [place] [employer] Underwriter 40,000 unit subcut LUE 4 mL [id number] 04/22/26 5585-5854-57 [employer] Total Dispensed Waste 4 mL 0 % Results Reviewed Nephrology Results: Hgb, (12.0-16.0) 7.2 g/dl L 12/10/24 WBC, (4.8-10.8) 3.5 X10*3/uL L 12/10/24 Plt Count, (160-400) 162 X10*3/uL 12/10/24 Sodium, (135-145) 140 mmol/L 12/10/24 Potassium, (3.3-5.1) 4.2 mmol/L 12/10/24 Chloride, (96-108) 108 mmol/L 12/10/24 Carbon Dioxide, (22-29) 23 mmol/L 12/10/24 BUN, (9-16) 34 mg/dL H 12/10/24 Creatinine, (0.5-1.4) 2.02 mg/dL H 12/10/24 Calcium, (8.4-10.2) 9.3 mg/dL Δ 12/10/24 Urine Protein, (Neg-Trace) Negative mg/dL 12/10/24 Assessment & Plan Assessment & Plan (1) Anemia in chronic kidney disease (CKD): Code(s): N18.9 - Chronic kidney disease, unspecified; D63.1 - Anemia in chronic kidney disease Category: Medical Qualifiers: Chronic kidney disease stage: stage 4 (severe) Qualified Code(s): N18.4 - Chronic kidney disease, stage 4 (severe); D63.1 - Anemia in chronic kidney disease (2) Secondary hyperparathyroidism: Code(s): N25.81 - Secondary hyperparathyroidism of renal origin Category: Medical (3) Essential (primary) hypertension: Code(s): I10 - Essential (primary) hypertension Category: Medical (4) Chronic kidney disease, stage 3b: Code(s): N18.32 - Chronic kidney disease, stage 3b Category: Medical Plan Margo has stage III B CKD at baseline. She had JOSE CARLOS's from cardiorenal syndrome with loss of GFR. She is hemodynamically stable . Her volume status is optimal. Her diuretics are adjusted by [facility] cards. She should be on low-sodium diet. She should avoid nonsteroidal anti-inflammatory medications. Her renal functions are close baseline. I gave [id number] Units of Procrit in the office today. She will need activated Vitamin D soon. I did not make any other medication changes today. She follows-up with her urologist for her renal mass. All questions were answered Orders: Orders Creatinine 1 Month D63.1 - Anemia in chronic kidney disease, N18.4 - Chronic kidney disease, stage 4 (severe) Electrolytes 1 Month D63.1 - Anemia in chronic kidney disease, N18.4 - Chronic kidney disease, stage 4 (severe) Calcium 1 Month D63.1 - Anemia in chronic kidney disease, N18.4 - Chronic kidney disease, stage 4 (severe) AMB Epoetin Injection Practice Supplied Today D63.1 - Anemia in chronic kidney disease, N18.4 - Chronic kidney disease, stage 4 (severe) Complete Blood Count Auto Diff 1 Month D63.1 - Anemia in chronic kidney disease, N18.4 - Chronic kidney disease, stage 4 (severe) Uric Acid 1 Month D63.1 - Anemia in chronic kidney disease, N18.4 - Chronic kidney disease, stage 4 (severe) Blood Urea Nitrogen 1 Month D63.1 - Anemia in chronic kidney disease, N18.4 - Chronic kidney disease, stage 4 (severe) Phosphorus 1 Month D63.1 - Anemia in chronic kidney disease, N18.4 - Chronic kidney disease, stage 4 (severe) Medications: Changed From allopurinol 50 mg PO DAILY To allopurinol 100 mg PO DAILY 90 tabs 3RF Coding Level of Care Code Est Pt Level 4 (62961) Diagnoses Anemia in stage 4 chronic kidney disease N18.4; D63.1 Chronic kidney disease stage: stage 4 (severe) Secondary hyperparathyroidism N25.81 Essential (primary) hypertension I10 Chronic kidney disease, stage 3b N18.32
[2024-12-15 16:23] VITALS: BP 120/60; PULSE 63; O2SAT 99; BMI 26.5
== END 2024-12-15 16:45 | disposition home or self-care (01) ==
LOC: HO.HKA 16:18
PROVIDERS: PCP Internal Medicine; Visit Provider Internal Medicine Nephrology
DX: I12.9 Hypertensive chronic kidney disease with stage 1 through stage 4 chronic kidney disease, or unspecified chronic kidney disease (principal); N18.4 Chronic kidney disease, stage 4 (severe); D63.1 Anemia in chronic kidney disease; N25.81 Secondary hyperparathyroidism of renal origin; N18.32 Chronic kidney disease, stage 3b
CPT/HCPCS: 99214

== ENCOUNTER → 2024-12-15 16:17 | Outpatient (BNVA) | payer MEDICARE, OTHER, SELFPAY | PROVIDERS: PCP Internal Medicine; Visit Provider Internal Medicine Nephrology | DX: I12.9 Hypertensive chronic kidney disease with stage 1 through stage 4 chronic kidney disease, or unspecified chronic kidney disease (principal); N18.4 Chronic kidney disease, stage 4 (severe); D63.1 Anemia in chronic kidney disease; N25.81 Secondary hyperparathyroidism of renal origin | CPT/HCPCS: 96372; 99212; Q5106 ==

== ENCOUNTER 2025-01-19 16:06 | Outpatient (AMB) | payer MEDICARE, OTHER, SELFPAY ==
--- OUTSIDE RECORDS SUMMARY | 2025-01-19 16:09 | XMS_ITS | Clinical Summary ---
Author Organization [facility] Address [address] [place] [address] Care Team Providers Care Office Clin Asst Name Role Phone Vee Chand MD Primary [...] to complete this topic Care Teams Office Clin Asst Relationship Specialty Start Date End Date Vee Chand MD [address] [place] [address] PCP - General Internal Medicine 08/18/19
--- OUTSIDE RECORDS SUMMARY | 2025-01-19 16:09 | XMS_ITS | Clinical Summary ---
Author Organization [facility] Address [address] [place] [address] Phone Care Team Providers Care Fire Extinguisher Installer Name Role Phone Vee Chand MD Primary [...] 08/07/2020 Stage 3a chronic kidney disease 08/07/2020 [id number] renal failure 12/16/2019 Acute urinary tract infection [...] Other lack of coordination 01/06/2021 0 08/06/2021 Generalized osteoarthritis 06/08/2020 0 08/06/2021 Constipation 06/03/2020 08/06/2021 Total knee replacement [...] 021 Other intervertebral disc de generation, lumbosacral region 04/17/2020 08/07/2020 Overview (12/21/2023): Replacing diagnoses that were inactivated after the 12/21/23 Regulatory Import Other reduced mobility 04/17/202008/07 Paroxysmal atrial fibrillation 04/17/2020 08/07/2020 Personal history of colon polyp 04/17/2020 08/07/2020 Presence of automatic implan table cardiac defibrillator 04/17/2020 08/07/2020 Type 2 diabetes mellitus without complication 04/17/1908/07/2020 Anemia 12/07/2019 08/07/2020 Atherosclerotic heart diseas e of [place] coronary artery without angina pectoris 12/07/2019 08/07/2020 [...] 06/18/2020 Pfizer SARS-COV-2 02/04/2021,06/18/2020 Pneumococcal Conjugate 13-Valent 08/09/2014,0303/2014 Pneumococcal Polysaccharide 06/20/2013,0 05/06/2013,05/06/2013,10/29 Tdap 02/12/2014,02/12/2014 Family [...] Insurance Medicare [facility] [address] [place] [phone] Medicare [facility] [address] [place] [id number] Care Teams Fire Extinguisher Installer Relationship Specialty Start Date End Date Vee Chand MD [address] [place] [address] [address] [place] [address] PCP - General Internal Medicine 08/07/20
--- OUTSIDE RECORDS SUMMARY | 2025-01-19 16:10 | XMS_ITS | Data Portability ---
Author Organization [facility] Address [address] [place] [address] Care Team Providers Care Tape Recorder Repairer Name Role Phone NEIL LINCOLN Primary Care Provider [phone] Assessment Encounter Date Assessment Date Assessment LastModified by Organization Details LastModified Time 04/12/2020 04/12/2020 Proper Personal Protective Equipment (PPE), including gloves, gown, shoe covers, eye protection and masks were donned and doffed appropriately and all equipment cleaned using approved technique with germicidal disposable wipes prior to and after care of this patient according to [facility]'s infection prevention protocols. Overview/History: 79 yo [...] blood thinner, and digoxin, therapy by her chemist organic, 2+ BLEE Gout Likely with history of [...] Referred - Point of Care: Emergency Department [email or web address] Not available 04/17/2020 13:16:55 07/08/2020 07/08/2020 Overview/History [...] 8.9, unable to review labs performed at [facility]; EKG NSR without acute ischemia; will call with pending lab results. -If symptoms worsen then go to ER -F/u with PCP regarding abdominal mass -F/u with heme regarding chronic anemia -Continue to increase PO intake as tolerated, continue with home PT, good sleep hygiene discussed Thank you for your visit with [facility] today. We cannot always find the exact [...] in your condition between 8am-10pm, [facility] at [phone] to help navigate your care. In order to obtain further information and compare any laboratory results/values, I have accessed patient records on the [employer]. This information was pertinent in my medical [...] written and verbal report given to EMS. [email or web address] Not available 11/11/2021 15:09:03 Plan of Treatment Reminders Order Date Submit Date Provider Last Modified By Organization Details Last Modified Time Details Appointments None recorded. Lab rapid SARS CoV 2 Ag, QL IA, respirator y specimen 2021 022 [email or web address] [address]83 Spr - Home, [address] [place], [address], 15:10:14 rapid flu (A+B) [address] [facility] - Home, [address] [place], [address], 2 15:11:19 BMP + ionized calcium, serum or plasma [address] [facility], [address], [place], [address], 17:14:20 CBC w/ auto diff 2020 021 [place] [facility] (Centralized Electronic Ordering - All Locations), Patient Can Go To The Location Of Their Choice, [id number] 23:05:03 BMP + ionized calcium, serum or plasma - repeat due to Cl error [address] [facility], [address], [place], [address], 15:40:20 urinalysis , dipstick [facility] [address], [place], [address], 14:27:32 hepatic function panel, serum 2020 021 [place] [facility] (Centralized Electronic Ordering - All Locations), Patient Can Go To The Location Of Their Choice, [id number] 00:12:48 Referral None recorded. Procedures None recorded. Surgeries None recorded. Imaging None recorded. Medication Orders None recorded. Patient TargetsNo targets recorded. 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 We cannot always find the [...] condition between 8am-10pm, please call [facility] at [phone] to help navigate your care. [email or web address] Not available 04/12/2020 20:00:38 Reason for Referral None Reported. Results Created Date Observation Date Name Description Value Unit Range Abnormal Flag Note LastModifiedBy Organization Detail LastModifiedTime 07/09/19 21 07/08/2020 urina lysis , dipst ick Appearance clear Not Available Spr - [facility] [address] [place], [address], 07/08/2020 14:11:30 07/09/19 21 07/08/2020 urina lysis , dipst ick Color yellow Not Available Spr - Home [address] [place], [address], 07/08/2020 14:11:30 07/09/19 21 07/08/2020 urina lysis , dipst ick Glucose negati ve Not Available Spr - Home [address] [place], [address], 07/08/2020 14:11:30 07/09/19 21 07/08/2020 urina lysis , dipst ick Bilirubin negati ve Not Available Spr - Home [address], [place], [address], 07/08/2020 14:11:30 07/09/19 21 07/08/2020 urina lysis , dipst ick Ketones NEG Not Available Spr - Home [address] [place], [address], 07/08/2020 14:11:30 07/09/19 21 07/08/2020 urina lysis , dipst ick Sp. [place] 1.015 Not Available Spr - Home [address] [place], [address], 07/08/2020 14:11:30 07/09/19 21 07/08/2020 urina lysis , dipst ick Blood NEG Not Available Spr - Home [address] [place], [address], 07/08/2020 14:11:30 07/09/19 21 07/08/2020 urina lysis , dipst ick pH 5.0 Not Available Spr - Home [address] [place], [address], 07/08/2020 14:11:30 07/09/19 21 07/08/2020 urina lysis , dipst ick Protein negati ve Not Available Spr - Home [address] [place], [address], 07/08/2020 14:11:30 07/09/19 21 07/08/2020 urina lysis , dipst ick Urobilirubin negati ve Not Available Spr - Home [address] [place], [address], 07/08/2020 14:11:30 07/09/19 21 07/08/2020 urina lysis , dipst ick Nitrites NEG Not Available Spr - David e [address] [place], [address], 07/08/2020 14:11:30 07/09/19 21 07/08/2020 urina lysis , dipst ick Leukocytes NEG Not Available Spr - H ome [address] [place], [address], 07/08/2020 14:11:30 07/09/19 21 07/08/2020 CBC w/ auto diff WBC 4.7 K/mm3 (4.0-1 1.0) Not Available [facility] (Centralized Electronic Ordering - All Locations) Patient Can Go To The Location Of Their Choice, [id number] 07/08/2020 23:05:03 07/09/19 21 07/08/2020 CBC w/ auto diff RBC 2.60 M/mm3 (4.20- 5.40) low Not Available [facility] (Centralized Electronic Ordering - All Locations) Patient Can Go To The Location Of Their Choice, [id number] 07/08/2020 23:05:03 07/09/19 21 07/08/2020 CBC w/ [...] Go To The Location Of Their Choice, [address] 07/09/2020 00:12:48 07/09/1907/08/2020 BMP + ioniz ed calci um, serum or plasm a glu 128 mg/dL 70-105 Not Available [address], [address], 07/17/2020 17:15:25 07/09/19 21 07/08/2020 BMP + ioniz ed calci um, serum or plasm a BUN 18 mg/dL 8-26 Not Available [address], [address], 07/17/2020 17:15:25 07/09/19 21 07/08/2020 BMP + ioniz ed calci um, serum or plasm a crea 1.2 mg/dL 0.6-1. 3 Not Available [address], [address], 07/17/2020 17:15:25 07/09/19 21 07/08/2020 BMP + ioniz ed calci um, serum or plasm a Na 140 mmol/ L 138-14 6 Not Available [address], [address], 07/17/2020 17:15:25 07/09/19 21 07/08/2020 BMP + ioniz ed calci um, serum or plasm a K 3.7 mmol/ L 3.5-4. 9 Not Available [address], [address], 07/17/2020 17:15:25 07/09/19 21 07/08/2020 BMP + ioniz ed calci um, serum or plasm a cL 104 mmol/ L 98-109 Not Available [address], [address], 07/17/2020 17:15:25 07/09/19 21 07/08/2020 BMP + ioniz ed calci um, serum or plasm a TCO2 28 mmol/ L 24-29 Not Available [address], [address], 07/17/2020 17:15:25 07/09/19 21 07/08/2020 BMP + ioniz ed calci um, serum or plasm a angap 12 mmol/ L 10-20 Not Available [address], [address], 07/17/2020 17:15:25 07/09/19 21 07/08/2020 BMP + ioniz ed calci um, serum or plasm a ica 1.22 mmol/ L 1.12-1 .32 Not Available [address], [address], 07/17/2020 17:15:25 07/09/19 21 07/08/2020 BMP + ioniz ed calci um, serum or plasm a HCT 28 %pcv 38-51 Not Available [address], [address], 07/17/2020 17:15:25 07/09/19 21 07/08/2020 BMP + ioniz ed calci um, serum or plasm a Hb 9.5 g/dL 12-17 Not Available [address], [address], 07/17/2020 17:15:25 07/09/19 21 07/08/2020 BMP + ioniz ed calci um, serum or plasm a glu 130 mg/dL 70-105 Not Available [address], [address], 07/17/2020 17:14:19 07/09/19 21 07/08/2020 BMP + ioniz ed calci um, serum or plasm a BUN 20 mg/dL 8-26 Not Available [address], [address], 07/17/2020 17:14:19 07/09/19 21 07/08/2020 BMP + ioniz ed calci um, serum or plasm a crea 1.2 mg/dL 0.6-1. 3 Not Available [address], [address], 07/17/2020 17:14:19 07/09/19 21 07/08/2020 BMP + ioniz ed calci um, serum or plasm a Na 140 mmol/ L 138-14 6 Not Available [address], [address], 07/17/2020 17:14:19 07/09/19 21 07/08/2020 BMP + ioniz ed calci um, serum or plasm a K 3.7 mmol/ L 3.5-4. 9 Not Available [address], [address], 07/17/2020 17:14:19 07/09/19 21 07/08/2020 BMP + ioniz ed calci um, serum or plasm a cL mmol/ L 98-109 Not Available [address], [address], 07/17/2020 17:14:19 07/09/19 21 07/08/2020 BMP + ioniz ed calci um, serum or plasm a TCO2 24 mmol/ L 24-29 Not Available [address], [address], 07/17/2020 17:14:19 07/09/19 21 07/08/2020 BMP + ioniz ed calci um, serum or plasm a angap mmol/ L 10-20 Not Available [address] [place], [address], 07/17/2020 17:14:19 07/09/19 21 07/08/2020 BMP + ioniz ed calci um, serum or plasm a ica 1.24 mmol/ L 1.12-1 .32 Not Available [facility] [address] [place], [address], 07/17/2020 17:14:19 07/09/19 21 07/08/2020 BMP + ioniz ed calci um, serum or plasm a HCT 28 %pcv 38-51 Not Available [facility] [address] [place], [address], 07/17/2020 17:14:19 07/09/19 21 07/08/2020 BMP + ioniz ed calci um, serum or plasm a Hb 9.5 g/dL 12-17 Not Available [address] [place], [address], 07/17/2020 17:14:19 11/12/19 22 11/11/2021 rapid flu (A+B) Flu A (ref: neg) negati ve Not Available Spr - Home [address] [place], [address], 11/11/2021 15:10:40 11/12/19 22 11/11/2021 rapid flu (A+B) Flu B (ref: neg) negati ve Not Available Spr - [address] [place], [address], 11/11/2021 15:10:40 11/12/19 22 11/11/2021 rapid flu (A+B) Control Visual ized/V alid Not Available Spr - Home [address] [place], [address], 11/11/2021 15:10:40 11/12/19 22 11/11/2021 rapid SARS CoV 2 Ag, QL IA, respi rator y speci men Covid-19 (ref: neg) negati ve Not Available Spr - Home [address] [facility], [place], [address], 11/11/2021 15:09:43 11/12/19 22 11/11/2021 rapid SARS CoV 2 Ag, QL IA, respi rator y speci men Control Visual ized/V alid Not Available Spr - Home [address] [facility], [place], [address], 11/11/2021 15:09:43 11/12/19 22 11/11/2021 rapid SARS CoV 2 Ag, QL IA, respi rator y speci men Location [facility], [address] [place] [address], [id number] Not Available Spr - Home [address] [place], [address], 11/11/2021 15:09:43 Result Notes None recorded. Procedures Surgical History Date Name Laterality Status Provider Name and Address Organization Details Recorded Time 07/09/19 21 Venipuncture - completed MARIA M LOPEZ [address] [place], [address], [place] [facility] 07/08/2020 13:58:24 07/09/19 21 ECG Interpretation - completed MARIA M LOPEZ [address] [place], [address], [place] [facility] 07/08/2020 14:08:14 percutaneous coronary intervention completed ARIEL DYSON NP [address] [place], [address], [place] [facility] 04/12/2020 19:00:50 cardiac pacemaker procedure completed ARIEL DYSON NP [address] [place], [address], [place] [facility] 04/12/2020 19:01:35 Imaging Results [...] /min 98.4 [degF] 130/60 mm[Hg] Not Available [facility] 1 13:15:25 Date Recorded Heart rate Body temperature Oxygen saturation Oxygen saturation in Arterial blood by Pulse oximetry Respiratory rate Systolic And Diastolic Provider Name and Address Organization Details Last Updated DateTime 2 62 /min 98.5 [degF] 96 % 96 % 18 /min 130/60 mm[Hg] Not Available [facility] 2 13:55:12 Social History Question Answer Notes LastModified by Organizat ion Details LastModified Time Tobacco Smoking Status Former Smoker ARIEL DYSON NP [address], [place], [address], [place] [facility] 04/12/2020 18:58:02 Do You Have An Advance Directive? Yes [email or web address] Information not available 04/12/2020 What Is Your Code Status? Full Code [email or web address] Information not available 04/12/2020 Within The Past 12 Months, Has It Happened That The Food You Bought Just Didn't Last And You Didn't Have Money To Get More. No Information not available 04/12/2020 Within The Past 12 Months, Have You Worried That Your Food Would Run Out Before You Got Money To Buy More. No [email or web address] Information not available 04/12/2020 Fall Risk: Do You Feel Unsteady When Standing Or Walking? Yes [email or web address] Information not available 04/12/2020 We Know That How And When People Interact With Friends And Family Can Be Very Different From Person To Person. How Often Do You Have The Opportunity To See Or Talk To People That You Care About And Feel Close To? (Ex: Talking To Friends On The Phone Or Visiting Friends Or Family Or Going To Baptism Or Club Meetings) 5 Or More Times Per Week [email or web address] Information not available 04/12/2020 Excessive Alcohol Or Drug Use No [email or web address] Information not available 04/12/2020 We Know From Many Of Our Patients That Covering All Of Their Costs Can Be Difficult At Times. This Can Cause Stress And Impact Health. In The Past Year, Have You Been Unable To Get Any Of The Following When It Was Really Needed? No Information not available 04/12/2020 What Is Your Housing Situation Today? I Have Housing Information not available 04/12/2020 Would You Like Help Connecting To Resources? None [email or web address] Information not available 04/12/2020 What Was The Date Of Your Most Recent Tobacco Screening? 04/04/2013 Information not available 04/12/2020 How Much Tobacco Do You Smoke? 0.25 PPD Information not available 04/12/2020 How Many Years Have You Smoked Tobacco? 15 [email or web address] Information not available 04/12/2020 Sex: Unknown Functional Status None recorded. Mental Status None recorded. Family History Relationship Description Onset Age of this Age Resolved Age Notes LastModified by Organization Details LastModified Time Father No current problems or disability [email or web address] Not available 04/12 18:57:55 Mother No current problems or disability [email or web address] Not available 04/12 18:57:55 Medical History Condition Response Coronary Artery Disease Y COPD N Cancer N Stroke N High Cholesterol Y Kidney Disease Y Diabetes Y Asthma N Pulmonary Embolism N Hypertension Y Gynecological HistoryNo gynecological history recorded. Obstetrics History GPAL:G 0 P 0 0 0 0 Immunizations Vaccine Type Date Status Note Provider Nam e and Address Organization Details Recorded Time Influenza, split virus, quadrivalent, preservative 0 completed ARIEL DYSON NP [address] [place], [address], [place] [facility] 04/12/2020 18:57:29 Past Encounters Encounter ID Performer Location Encounter Start Date Encounter Closed Date Diagnosis/Indication Diagnosis SNOMED-CT Code Diagnosis ICD10 Code Diagnosis IMO Codes Diagnosis Note [id number] ARIEL DYSON NP [facility] [place]NOTE 3] - HOME [address] [place] [address] 04/12/2020 18:50:30 04/14/2020 23:53:31 Gout 94215171 M10.9 Congestive heart failure 98447515 I50.9 Knee pyoge trang arthritis 564719528 M00.9 Deep venou s thrombosis 811632739 I82.409 [id number] MARIA M LOPEZ [facility] - HOME [address] [place] [address] 07/08/2020 13:07:51 07/10/2020 15:58:40 Weakness present 652195681 M62.81 Tachycardia 7096634 R00. 0 Anemia 870744202 D64.9 Abdominal mass 061346665 R19.00 Physical deconditioning 9228320683 9102 R68.89 [id number] Miryam JORDON Davalos [facility] - HOME [address] [place] [address] 11/11/2021 13:50:10 11/12/2021 08:26:50 Abdominal pain 61856230 R10.9 Cough 58312842 R05.1 Health Concerns Section Related Observation LastModified by Organization Detai ls LastModified Time None Recorded Concern Status LastModified by Organization Details LastModified Time None Recorded Advance Directives Directive Y: Payers Insurance Date Sequence Insurance Name Policy Number Policy Conklin Covered Member ID Conklin Member ID Guarantor Name 11/17/2021 2 FOR LIFE ( - MEDICARE SUPPLEMENT) Margo Fang [id number] Margo Fang 08/30/2020 2 FOR LIFE ( - MEDICARE SUPPLEMENT) Margo Fang [id number] Margo Fang 04/12/2020 1 *SELF PAY* Margo Fang [id number] Margo Fang 11/11/2021 1 [place] [employer] Margo Fang [id number] Margo Fang 04/12/2020 1 [place] [employer] Margo Fang [id number] Margo Fang 07/08/2020 PENDING Margo Fang [id number] Margo Fang Notes Date Note Type Note [...] May, ARIEL DYSON NP [address], [place], [address], [place] [facility] 04/17/2020 13:18:18 07/08/2020 text/html [...] up. MARIA M LOPEZ [address], [place], [address], [place] [facility] 07/08/2020 15:46:18 11/11/2021 text/html [...] night. September Anoop, JORDON [address], [place], [address], [place] [facility] 11/11/2021 15:11:46 OBGyn Episode No OBEpisode recorded.
--- OUTSIDE RECORDS SUMMARY | 2025-01-19 16:10 | XMS_ITS | Data Portability ---
Author Organization [facility], Main Office Address [address] [place] [address] [address] [place] [address] Care Team Providers Care Service Consultant Name Role Phone RORY TARANGO 1ST FLOOR OTHER NEIL COYLE Primary Care Provider [phone] Assessment No assessment recorded. Plan of Treatment [...] Name and Address Organization Details Recorded Time Cholecysti tis 75607279 [facility] Type 2 diabetes mellitus without complicati on 559411429 Active 2019 Marcelina alonzo [facility] 0 13:27:09 Essential hypertensi on 73641452 Active 2019 Marcelina alonzo [facility] 0 13:27:10 Coronary arterioscl erosis 11235634 Active 2019 Marcelina Ponce [facility] 0 13:27:12 Chronic atrial fibrillati on 330135137 Active 2019 Marcelina Ponce [facility] 0 13:27:18 Gastroesop hageal reflux disease without esophagiti s 501170979 Active 2019 Marcelina alonzo [facility] 0 13:27:20 Disorder of urinary bladder 53876573 Active 2019 Marcelina alonzo, [facility] 0 13:30:10 History of deep vein thrombosis 291809458 Active 2019 Marcelina Ponce null, [facility] 0 14:51:52 Congestive heart failure 15740228 Active 2019 Marcelina alonzo, [facility] 0 14:51:55 Renal mass 379156833 Active 2019 Marcelina Ponce null, [facility] 0 14:52:00 Asthenia 47435327 Active 2019 Marcelina alonzo, [facility] 0 14:52:02 Hyperlipid emia 83209815 Active 2019 LORNA SAUCEDO NP [address] [facility], [address], [place], [address] , [facility] [employer] [facility] 0 08:12:22 Acute urinary tract infection 071637719 Active 2019 LORNA SAUCEDO NP [address] [facility], [address], [place], [address] , [facility] [employer] [facility] 0 08:12:35 Gout 91524434 Active 2019 LORNA SAUCDEO NP [address] [facility], [address], [place], [address] , [facility] [employer] [facility] 0 08:21:44 Acute-on-c hronic renal failure 407327788 Active 2019 Inge Rodríguez MD [address] [place] [address], [address], [place], [address] , [facility] [employer] [facility] 0 00:35:34 Overactive urinary bladder 327929269 Active 2020 Inge Rodríguez MD [address] [place] [address], [address], [place], [address] , [facility] [employer] [facility] 1 00:36:36 Total knee replacemen t Active 2020 LORNA SAUCEDO NP [address] [facility], [address], [place], [address] , [facility] [employer] [facility] 1 09:22:16 Pain in left knee Active 2020 LORNA SAUCEDO NP [address], [address], [place], [address] , [facility] 1 09:22:52 Constipati on 49912030 Active 2020 Inge Rodríguez MD [address], [address], [place], [address] , [facility] 1 16:36:30 Generalize d osteoarthr itis 355766977 Active 2020 Inge Rodríguez MD [address], [address], [place], [address] , [facility] 1 23:37:24 Surgical incision wound of skin 226043823791 Active 2020 right knee LORNA SAUCEDO NP [address], [address], [place], [address] , [facility] 1 08:57:59 Pain in right knee Active 2020 LORNA SAUCEDO NP [address], [address], [place], [address] , [facility] 1 11:38:33 Chronic kidney disease stage 3A 570254640 Active 2020 Inge Rodríguez MD [address], [place], [address] , [facility] 1 01:37:03 Problem Notes None recorded. Medical Equipment None Reported. Allergies Allergen ID Allergen Name Allergen Category Reaction Reaction Severity Criticality Documentation Date Start Date Code Code System Note Provider Name and Address Organization Details Recorded Time 60850 lisinopri l medicatio n Not available Not available Not available 04/04/2019 63458 RxNorm Marcelina alonzo [email or web address] [facility] 0 13:28:04 01602 Dilaudid medicatio n Not available Not available Not available 01/07/2021 92673 3 RxNorm LORNA SAUCEDO NP [address], [address], [place], [address], [facility] 1 08:35:20 Vitals Date Recorded Body height Heart rate Respiratory rate Body temperature Oxygen saturation Oxygen saturation in Arterial blood by Pulse oximetry Systolic And Diastolic Provider Name and Address Organization Details Last Updated DateTime 1 162.56 cm 58 /min 18 /min 96.8 [degF] 96 % 96 % 99/57 mm[Hg] LORNA SAUCEDO NP [address] [facility], [facility] [address], [place], [address], [facility] 1 11:30:38 Date Recorded Body height Heart rate Respiratory rate Body temperature Oxygen saturation Oxygen saturation in Arterial blood by Pulse oximetry Systolic And Diastolic Provider Name and Address Organization Details Last Updated DateTime 162.56 cm 71 /min 20 /min 97.6 [degF] 96 % 96 % 113/61 mm[Hg] LORNA SAUCEDO NP [address] [facility], [facility] [address], [place], [address], [facility] 08:38:54 Date Recorded Body height Body mass index (BMI) Body weight Heart rate Respiratory rate Body temperature Oxygen saturation Oxygen saturation in Arterial blood by Pulse oximetry Systolic And Diastolic Provider Name and Address Organization Details Last Updated DateTime 1 162.56 cm 26.2 kg/m2 72841.4 8 g 70 /min 16 /min 97 [degF] 96 % 96 % 112/61 mm[Hg] Inge Rodríguez MD [address] [facility] [address], [place], [address], [facility] 1 16:25:57 Date Recorded Body height Heart rate Respiratory rate Body temperature Oxygen saturation Oxygen saturation in Arterial blood by Pulse oximetry Systolic And Diastolic Provider Name and Address Organization Details Last Updated DateTime 1 162.56 cm 70 /min 16 /min 97 [degF] 96 % 96 % 112/61 mm[Hg] LORNA SAUCEDO NP [address] [facility], [facility] [address], [place], [address], [facility] 12:16:58 Date Recorded Body height Heart rate Respiratory rate Body temperature Oxygen saturation Oxygen saturation in Arterial blood by Pulse oximetry Systolic And Diastolic Provider Name and Address Organization Details Last Updated DateTime 1 162.56 cm 91 /min 18 /min 97 [degF] 97 % 97 % 108/61 mm[Hg] LORNA SAUCEDO, TERMINAL SUPERINTENDENT [address] [facility], [address], [place], [address], [place] - [facility] 1 11:04:33 Social History Question Answer Notes LastModified by Organizat ion Details LastModified Time Tobacco Smoking Status Former Smoker quit 2013 Not Available [employer] 01/16/2020 03:13:20 Do You Have An Advance Directive? Yes CPR-hospital Ok, No Dialysis , Ok For Iv. Hydration, Art Nut. Information not available 01/07/2021 How Much Tobacco Do You Chew? None [id number] Information not available 01/16/2020 What Is Your Code Status? DNI Information not available 01/07/2021 Legal Guardian? No Informati on not available 12/16/2020 Do You Have A Medical Power Of Library Circulation Technician? Yes Has One, Need To Obtain Information not available 12/16/2020 What Was The Date Of Your Most Recent Tobacco Screening? 12/12/2019 [id number] Information not available 01/16/2020 Has Tobacco Cessation Counseling Been Provided? No N/a As Pt. No Longer Smokes Information not available 12/16/2020 How Many Years Have You Smoked Tobacco? 50 [id number] Information not available 01/16/2020 Sex: Female Functional Status Question Answer Note LastModified by Organizat ion Details LastModified Time Do you or have you ever used any other forms of tobacco or nicotine? No Information not available 12/16/2020 What is your level of alcohol consumption? Occasional [id number] Information not available 01/16/2020 Do you or have you ever used smokeless tobacco? Never used smokeless tobacco [id number] Information not available 01/16/2020 Do you or have you ever used e-cigarettes or vape? Never used electronic cigarettes [id number] Information not available 01/16/2020 Mental Status None recorded. Family History Nothing Reported Notes:father-lung ca Medical History No medical history recorded. Gynecological HistoryNo gynecological history recorded. Obstetrics History GPAL:G 0 P 0 0 0 0 Immunizations Vaccine Type Date Status Note Provider Nam e and Address Organization Details Recorded Time COVID-19, mRNA, LNP-S, PF, 30 mcg/0.3 mL dose 1 completed Julieth Robkaiser [facility] 02/19/2021 13:36:20 Influenza, high-dose, quadrivalent, PF 1 completed Julieth Robkaiser [facility], [facility] 03/19/2021 09:32:37 Influenza, split virus, quadrivalent, preservative 0 completed Julieth Robkaiser [facility], [facility] 01/12/2020 10:17:01 Pneumococcal conjugate PCV 13 5 completed [facility] 08/12/2020 09:42:53 pneumococcal polysaccharide PPV23 4 completed Julieth Robkaiser [facility], [facility] 08/12/2020 09:43:04 Tdap 4 completed [facility] 08/12/2020 09:43:14 Past Encounters Encounter ID Performer Location Encounter Start Date Encounter Closed Date Diagnosis/Indication Diagnosis SNOMED-CT Code Diagnosis ICD10 Code Diagnosis IMO Codes Diagnosis Note [id number] Marcelina Ponce NP [place] [address] [place] [address] 04/04/2019 13:17:17 04/04/2019 14:15:53 Cholecystitis 34637534 K80.10 recs for no surgical interventi on abd pain resolved on DC from acute care Pt without abd pain today continued on augmentin bid - no stop date- will call acute care and see if there was a stop date planned. WBC wnl monitor for pain mgmt 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 763455022 E11.9 diet controlled , not on meds for this accucheck prn Essential hypertension 95275094 I10 lasix 20mg on mon, wed, fri ADD per cards- metoprolol XL 50mg qd (hold for SBP<100), spironolac tone 12.5mg bid, and entresto 49/51mg bid (to change down to 24/26mg bid dose for consistent SBP<100) pt had been imdur in the past but [facility] does not want to restart this. monitor bp, labs Coronary arteriosclerosis 62497188 I25.10 atorvastat in 80mg qd metoprolol XL 50mg qd nitroglyce rin SL tab q5min for 3 doses monitor lfts prn Chronic at rial fibrillation 956658213 I48.21 on coumadin digoxin 0.125 qd on mon, wed, fri pt also on lovenox for DVT, see above metoprolol XL 50mg qd monitor for rate control, titrate coumadin prn Gastroesop hageal reflux disease without esophagitis 214230193 K21.9 pantoprazo le 40mg qd monitor for sx Disorder o f urinary bladder 65250560 N32.81 myrbetriq 50mg ER qd monitor for sx Renal mass 570795228 N28 .89 right sided is followed by nephrologi st no plan for interventi on at this time for this however CT in acute care finding of new left sided renal mass- to f/u with nephrologi st for this. History of deep vein thrombosis 546916024 Z86.718 ? DVT in acute care Pt has ordered lovenox and coumadin will continue AC therapy for now and request documentat ion from acute care regarding this US to RUE today stat monitor Asthenia 53378057 R53.1 PT/OT to eval and treat monitor for fall risk Congestive heart failure 94545335 I50.22 lasix 20mg on mon, wed, fri ADD per cards- metoprolol XL 50mg qd (hold for SBP<100), spironolac tone 12.5mg bid, and entresto 49/51mg bid (to change down to 24/26mg bid dose for consistent SBP<100) f/u with cards monitor resp status, fluid status, daily weights [id number] Marcelina Ponce NP [place] [address] [address] [facility] [place] [address] 04/06/2019 14:48:45 04/12/2019 14:33:13 History of deep vein thrombosis 023102811 Z86.718 DVT to the RUE in acute care pt on lovenox - coumadin bridge to DC lovenox when coumadin is in therapeuti c range monitor Essential hypertension 04767132 I10 lasix 20mg on mon, wed, fri [...] continue to monitor Chronic at rial fibrillation 957329450 I48.21 on coumadin digoxin 0.125 qd on mon, wed, fri metoprolol XL 50mg qd monitor for rate control, titrate coumadin prn Osteoarthr itis of left knee joint 9829142970 91094 M17.12 pt getting lidocaine patch, apap 650mg prn, muscle rub she also sees specialist outpt and gets injections . will DC prn apap and schedule 1,000mg tid monitor for effect continue with PT/OT to maximize function as tolerated. [id number] Marcelina Ponce NP [place] [address] [place] [address] 04/07/2019 13:58:39 04/12/2019 14:36:15 Osteoarthritis of left knee joint 9745152274 14818 M17.12 pt getting lidocaine patch to bilat knees, muscle rub started on apap 1,000mg tid yesterday with little effect, will change to prn start tramadol 25mg bid prn Pt sees specialist - will order a consult monitor for pain mgmt continue with PT/OT to maximize function as tolerated. History of deep vein thrombosis 862502256 Z86.718 DVT to the RUE in acute care pt on lovenox - coumadin bridge coumadin in therapeuti c range today, will DC lovenox. continue coumadin and titrate prn monitor Chronic at rial fibrillation 492976773 I48.21 on coumadin digoxin 0.125 qd on mon, wed, fri metoprolol XL 50mg qd monitor for rate control, titrate coumadin prn Essential hypertension 75887281 I10 stable lasix 20mg on mon, wed, fri metoprolol XL 50mg qd (hold for SBP<100), spironolac tone 12.5mg bid entresto 49/51mg bid (to change down to 24/26mg bid dose for consistent SBP<100) monitor bp, labs Cholecystitis 67522739 K 80.10 recs for no surgical interventi on abd pain resolved on DC from acute care Pt without abd pain today continued on augmentin bid - no stop date- will call acute care and see if there was a stop date planned. WBC wnl monitor for pain mgmt Congestive heart failure 93095526 I50.22 lasix 20mg on mon, wed, fri metoprolol XL 50mg qd (hold for SBP<100), spironolac tone 12.5mg bid f/u with cards monitor resp status, fluid status, daily weights Coronary arteriosclerosis 29133340 I25.10 atorvastat in 80mg qd metoprolol XL 50mg qd nitroglyce rin SL tab q5min for 3 doses monitor lfts prn Gastroesop hageal reflux disease without esophagitis 324837179 K21.9 [place]opraz[place] 40[place] [id number] Mohsen Collins MD [address] [address] 04/10/2019 11:20:58 04/12/2019 14:47:48 Acute cholecystitis 87273253 K81.0 see HPIconserv ative management monitor sxrefer back to surger for change in condition Asthenia 81732977 R53.1 PT OT eval and treatmonit or fall riskwas ambulating with walker prior Chronic at rial fibrillation 769281698 I48.21 monitor and adjust coumadinmo nitor for rate control Congestive heart failure 56148727 I50.22 monitor respirator y function and fluid statusfoll ow weightstit rate meds prn Gastroesop hageal reflux disease without esophagitis 611144551 K21.9 stable on PPImonitor for sx control Essential hypertension 94959506 I10 monitor and titrate current medsfollow ed by gertrude gardner with concerns [id number] Marcelina Ponce NP [address] [address] 04/11/2019 13:13:45 04/18/2019 08:34:20 Acute cholecystitis 55375034 K81.0 see HPIconserv ative management monitor sxrefer back to surger for change in condition Asthenia 31566493 R53.1 PT OT eval and treatmonit or fall riskwas ambulating with walker prior Chronic at rial fibrillation 398988318 I48.21 monitor and adjust coumadinmo nitor for rate control Osteoarthr itis of left knee joint 2527687074 18998 M17.12 pt getting lidocaine patch to bilat knees, muscle rub D/C tramadol today- believe this may be causing increased confusion/ lethargy continue apap 1,000mg tid prn awaiting f/u with ortho, ?need for steroidal injections monitor for pain mgmt continue with PT/OT to maximize function as tolerated. History of deep vein thrombosis 965722574 Z86.718 DVT to the RUE in acute care swelling has improved lovenox now DCd, pt remains on coumadin continue coumadin and titrate prn monitor Essential hypertension 83344428 I10 stable lasix 20mg on wed, wed, wed metoprolol XL 50mg qd (hold for SBP<100), spironolac tone 12.5mg bid entresto 49/51mg bid (to change down to 24/26mg bid dose for consistent SBP<100) monitor bp, labs Pain in left arm 8219067 00 M79.602 see HPI pain to left arm, worse with therapy also pain to right arm however pt with confusion, unable to get full history of the pain tramadol DCd today as it may be causing increased confusion will order bengay to AMBERE qid and prn pain psych [...] DC of tramadol. monitor Congestive heart failure 35344701 I50.22 lasix 20mg on wed, wed, fri metoprolol XL 50mg qd (hold for SBP<100), spironolac tone 12.5mg bid f/u with cards monitor resp status, fluid status, daily weights [id number] JORDON MENENDEZ SUKH[place]EP [address] [place] [address] [place] [address] 12/08/2019 08:07:07 12/11/2019 16:45:18 Chronic atrial fibrillation 071108472 I48.20 lasix 40 mg daily metoprolol er 50 mg hs Congestive heart failure 81007870 I50.9 lasix 40 mg daily monitor resp status Essential hypertension 43685594 I10 metoprolol 50 mg hs monitor bp Hyperlipidemia 73874281 E78.5 lipitor 80 mg daily Acute urin polina tract infection 895840506 N39.0 cefuroxime 250 mg bid to 12/11 Gout 72900785 M10.9 predisone taper norco 5/325 q4hr prn diclofenac 1% to knees [id number] MD RORY Becerril [address] [place] [address] [place] [address] 12/12/2019 18:51:23 12/18/2019 10:30:51 Chronic atrial fibrillation 444650468 I48.21 Rate in good control on metoprolol as above. Not on AC Monitor HR Congestive heart failure 59594892 I50.22 I25.5 Z95.810 Pt. feels back to baseline. Continue lasix 40 mg qd and metoprolol 50 mg qd. Very deconditio ellis, needs PT/OT for strengthen ing and function. Monitor resp. status, fluid status, wts and labs. Essential hypertension 29071095 I10 In good control on meds as above. Monitor BP and labs Hyperlipidemia 51871918 E78.49 Continue atorvastat in 80 mg qd. Monitor labs as outpt. Acute urin polina tract infection 874295609 N30.00 Completes course of cefuroxime 250 mg BID today. Monitor for recurrence . Gout 04768257 M10.072 Doing well. Continue prednisone taper, to complete 12/17 Pain much improved, will decrease hydrocodon e/APAP 5/325 to q 6 hrs prn. Contine diclofenac 1% to knees and lidocaine patch. Monitor sxs. Acute-on-c hronic renal failure 236207513 N17.8 N18.2 BUN/cr in 07/2019 was 27/1.2, so sig worse than baseline still. Continue to avoid nephrotoxi c meds. Monitor labs. Renal consult. [id number] [facility] [address] [place] [address] [place] [address] 12/13/2019 09:32:51 12/15/2019 09:06:00 Congestive heart failure 30040455 I50.9 lasix 40 mg daily monitor resp status Gout 49872489 M10.9 predisone taper to 12/17 norco 5/325 q4hr prn diclofenac 1% to knees 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 334825461 E11.9 diet controlled , not on meds for this accucheck prn [id number] LORNA SAUCEDO JORDON TARANGO [address] [place] [address] 12/18/2019 09:46:04 12/21/2019 15:26:11 Congestive heart failure 81313340 I50.9 lasix 40 mg daily monitor resp status Essential hypertension 93010735 I10 metoprolol 50 mg hs monitor bp 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 795004345 E11.9 diet controlled , not on meds for this accucheck prn [id number] LORNA SHERYL JORDON TARANGO [address] [place] [address] 12/25/2019 10:13:38 12/27/2019 10:05:24 Gout 43424821 M10.9 predisone taper 20 mg daily ax4 days, then 10 mg daily x4 days norco 5/325 q4hr prn diclofenac 1% to knees Asthenia 47793801 R53.1 PT OT eval and treat monitor fall risk was ambulating with walker prior [id number] LORNA AGUEROALEX JORDON [facility] [address] [place] [address] 01/01/2020 12:24:46 01/04/2020 12:53:43 Gout 08071515 M10.9 predisone taper 20 mg daily ax4 days, then 10 mg daily x4 days norco 5/325 q4hr prn diclofenac 1% to knees Asthenia 64607664 R53.1 PT OT eval and treat monitor fall risk was ambulating with walker prior [id number] LORNA AGUEROALEX JORDON TARANGO [address] [place] [address] 01/05/2020 08:36:09 01/08/2020 13:24:34 Htann-wj-qgmwdbh renal failure 916971294 N18.9 monitor labs Asthenia 77708114 R53.1 PT OT eval and treat monitor fall risk was ambulating with walker prior Chronic at rial fibrillation 088270169 I48.20 lasix 40 mg daily metoprolol er 50 mg hs Congestive heart failure 77342966 I50.9 lasix 40 mg daily monitor resp status Coronary arteriosclerosis 18649752 I25.10 monitor for any symptoms Essential hypertension 93682141 I10 metoprolol 50 mg hs monitor bp Gastroesop hageal reflux disease without esophagitis 784340721 K21.9 monitor for symptoms Gout 05556458 M10.9 norco 5/325 q4hr prn diclofenac 1% to knees Hyperlipidemia 55010015 E78.5 lipitor 80 mg daily 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 861582170 E11.9 diet controlled , not on meds for this accucheck prn [id number] LORNA SAUCEDO NP [address] [address] 04/19/2020 07:49:30 04/23/2020 08:17:38 Chronic atrial fibrillation 987907572 I48.20 lasix 40 mg daily metoprolol er 50 mg hs Congestive heart failure 23152231 I50.9 lasix 40 mg daily monitor resp status Coronary arteriosclerosis 29203793 I25.10 monitor for any symptoms Disorder o f urinary bladder 64887335 N32.9 myrbetriq 50 mg daily Essential hypertension 95805596 I10 metoprolol 50 mg hs monitor bp Gastroesop hageal reflux disease without esophagitis 893781836 K21.9 protonix 40 mg daily Gout 97468479 M10.9 allopurino l 100 mg daily lidocaine patch daily right knee diclofenac 1% to knees 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 489480982 E11.9 diet controlled , not on meds for this accucheck prn Hyperlipidemia 26735552 E78.5 lipitor 80 mg daily [id number] Inge Rodríguez MD [address] [address] 04/22/2020 13:43:45 04/25/2020 11:37:29 Congestive heart failure 69502018 I50.22 I25.5 Z95.810 Appears euvolemic. Continue lasix 40 mg qd and metoprolol 150 mg qd. Monitor resp. status, fluid status, wts and labs. Acute-on-c hronic renal failure 938935160 N17.8 N18.2 At new baseline. Continue to avoid nephrotoxi c meds. Monitor labs. Renal consult prn. Chronic at rial fibrillation 009739809 I48.21 Rate in good control on metoprolol as above. Not on AC Monitor HR Essential hypertension 25510192 I10 In good control on meds as above. Monitor BP and labs Hyperlipidemia 89566521 E78.49 Continue atorvastat in 80 mg qd. Monitor labs as outpt. Gout 32965831 M10.072 No current sxs. Elevated uric acid inpt. Continue allopurino l 100 mg qd. and colchicine prn. Monitor sxs. and recheck uric acid prn. Coronary arteriosclerosis 45208324 I25.10 monitor for any symptoms Gastroesop hageal reflux disease without esophagitis 178273861 K21.9 No current sxs. Continue pantoprazo le 40 mg qd. Monitor for sxs. 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 429664052 E11.9 diet controlled , not on meds for this Check accuchecks prn Bilateral knee pain 1187 562133 4581648 M25.561 M25.562 M15.0 Scheduled for TKR on [...] function. Monitor pain relief. Overactive urinary bladder 776682133 N32.81 Continue myrbetriq 50 mg qd. monitor sxs. [id number] JORDON MENENDEZ [address] [place] [address] 04/29/2020 07:38:33 05/01/2020 11:27:39 Acute urinary tract infection 242550906 N39.0 recovered Acute-on-c hronic renal failure 520735545 N18.9 monitor labs Asthenia 07691241 R53.1 PT OT eval and treat monitor fall risk was ambulating with walker prior Cholecystitis 19758831 K 81.9 recovered Chronic at rial fibrillation 777036514 I48.20 lasix 40 mg daily metoprolol er 50 mg hs Congestive heart failure 29124549 I50.9 lasix 40 mg daily monitor resp status Coronary arteriosclerosis 80905084 I25.10 monitor for any symptoms Disorder o f urinary bladder 32558425 N32.9 myrbetriq 50 mg daily Essential hypertension 79506286 I10 metoprolol 150 mg hs monitor bp Gastroesop hageal reflux disease without esophagitis 594699893 K21.9 protonix 40 mg dailytums q4 hr prn Gout 17833524 M10.9 allopurino l 100 mg daily lidocaine patch daily right knee diclofenac 1% to knees bid cholchecin e 0.6 2-tabs the 0.6 mg qd prn vicodin 5/325 mg q4 hr prn History of deep vein thrombosis 786569821 Z86.718 resolved Hyperlipidemia 66755661 E78.5 lipitor 80 mg daily Overactive urinary bladder 849076051 N32.81 myrbetriq 50 mg qd. monitor sxs. Renal mass 378889687 N28 .89 f/u with nephrologi st 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 846541707 E11.9 diet controlled , not on meds for this accucheck prn [id number] JORDON MENENDEZ SUKHDEEP [address] [place] [address] [place] [address] 05/31/2020 07:34:55 06/05/2020 10:23:00 Type 2 diabetes mellitus without complication 320328059 E11.9 diet controlled , not on meds for this accucheck prn Renal mass 831000967 N28 .89 f/u with nephrologi st Overactive urinary bladder 858835508 N32.81 myrbetriq 50 mg qd.monitor sxs. Hyperlipidemia 11806206 E78.5 atorvastat in 80 mg daily History of deep vein thrombosis 003915805 Z86.718 xarelto 10 mg daily Gout 32204180 M10.9 allopurino l 100 mg daily lidocaine patch daily right knee diclofenac 1% to knees bid cholchecin e 0.6 2-tabs the 0.6 mg qd prn oxycodone 5 mg q4 hrprn tramadol 50 mg q4 hr prn Gastroesop hageal reflux disease without esophagitis 991345403 K21.9 protonix 40 mg dailytums q4 hr prn Essential hypertension 25241681 I10 metoprolol er 100 mg hs monitor bp Coronary arteriosclerosis 67936508 I25.10 monitor for any symptoms Congestive heart failure 42759165 I50.9 lasix 40 mg daily monitor resp status Chronic at rial fibrillation 060227631 I48.20 lasix 40 mg daily metoprolol er 50 mg hs Pain in left knee 529158 4414 78322 M25.562 oxycodone 5 mg q4 hrprn tramadol 50 mg q4 hr prn [id number] Inge Rodríguez MD [address] [place] [address] 06/03/2020 13:11:50 06/11/2020 14:52:39 Generalized osteoarthritis 312208802 M15.0 Z96.652 S/P TKR on 05/23. Needs [...] Monitor pain relief. Bilateral knee pain 1187 289858 1594444 M25.561 M25.562 M15.0 With continued right knee pain also. Continue PT/OT as above. Monitor pain relief. Congestive heart failure 48639816 I50.22 I25.5 Z95.810 Appears euvolemic. Continue lasix 40 mg qd and metoprolol 100 mg qd. Monitor resp. status, fluid status, wts and labs. Acute-on-c hronic renal failure 269378251 N17.8 N18.2 Stable at new baseline. Continue to avoid nephrotoxi c meds. Monitor labs. Renal consult prn. Chronic at rial fibrillation 976804803 I48.21 Rate in good control on metoprolol 100 mg qd Now on rivaroxaba n for DVT prophylaxi s, may continue mcfp for afib. Monitor HR Essential hypertension 24451505 I10 In good control on meds as above. Monitor BP and labs Hyperlipidemia 52245817 E78.49 Continue atorvastat in 80 mg qd. Monitor labs as outpt. Gout 82932122 M10.072 No current sxs., but with elevated uric acid inpt. Continue allopurino l 100 mg qd. and use colchicine prn sxs. Monitor sxs. and recheck uric acid prn. Coronary arteriosclerosis 07772180 I25.10 Continue meds as above. Monitor for any symptoms F/U with cardio as planned. Gastroesop hageal reflux disease without esophagitis 219907834 K21.9 No current sxs. Continue pantoprazo le 40 mg qd. Monitor for sxs. 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 Monitor accuchecks prn Overactive urinary bladder 628466601 N32.81 Continue myrbetriq 50 mg qd. monitor sxs. Constipation 34548069 K5 9.03 No BM since transfer here. Says she doesn't usually have problems at home, so likely due to meds and immobility . Will continue colace 100 mg BID and give dose of MOM tonight and consider other meds if no BM by tomorrow. Monitor bowel function. [id number] JORDON MENENDEZ [address] [place] [address] 5 06/04/2020 08:11:50 06/07/2020 13:33:34 Pain in left knee 5344954936 66037 M25.562 oxycodone 5 mg q4 hrprn tramadol 50 mg q4 hr prnPT OT eval and treat Congestive heart failure 45725521 I50.9 lasix 40 mg daily monitor resp status [id number] JORDON MENENDEZ [address] [place] [address] 5 06/07/2020 11:43:39 06/11/2020 15:04:18 Pain in left knee 5589365682 42415 M25.562 oxycodone 5 mg q4 hr prn tramadol 50 mg q4 hr prn PT OT eval and treat Gastroesop hageal reflux disease without esophagitis 662155371 K21.9 protonix 40 mg dailytums q4 hr prn History of deep vein thrombosis 478492834 Z86.718 xarelto 10 mg daily [id number] JORDON MENENDEZ [address] [place] [address] 5 06/10/2020 15:29:11 06/13/2020 15:30:41 Pain in left knee 1901036433 58398 M25.562 oxycodone 5 mg q4 hr prn, 7.5 mg am tramadol 50 mg q4 hr prn PT OT eval and treat Generalize d osteoarthritis 963665973 M15.9 Needs PT/OT for strengthen ing, balance, gait training, safety and function. oxycodone 7.5 mg qAM and 5 mg q 4 hrs prn. APAP 1000 mg TID. tramadol 50 mg q 4 hrs prn rivaroxaba n 10 mg qd for DVT prophylaxi s. Monitor pain relief [id number] JORDON MENENDEZ [address] [place] [phone] 5 06/14/2020 12:44:17 06/17/2020 16:30:53 Generalized osteoarthritis 727918574 M15.9 Needs PT/OT for strengthen ing, balance, gait training, safety and function. oxycodone 7.5 mg qAM and 5 mg q 4 hrs prn. APAP 1000 mg TID. tramadol 50 mg q 4 hrs prn rivaroxaba n 10 mg qd for DVT prophylaxi s. Monitor pain relief Pain in left knee 129713 1165 29425 M25.562 oxycodone 5 mg q4 hr prn, 7.5 mg am tramadol 50 mg q4 hr prn PT OT eval and treat [id number] JORDON MENENDEZ [address] [place] [phone] 5 06/25/2020 08:29:30 06/27/2020 09:37:45 Acrvo-aq-egqaziy renal failure 641997006 N18.9 monitor labs Asthenia 21436870 R53.1 PT OT eval and treat monitor fall risk was ambulating with walker prior Cholecystitis 27092359 K 81.9 recovered Chronic at rial fibrillation 852588446 I48.20 lasix 40 mg daily metoprolol er 50 mg hs Congestive heart failure 74621962 I50.9 lasix 40 mg daily monitor resp status Constipation 56340020 K5 9.00 miralax daily Coronary arteriosclerosis 53474722 I25.10 monitor for any symptoms Generalize d osteoarthritis 506901778 M15.9 Needs PT/OT for strengthen ing, balance, gait training, safety and function. oxycodone 7.5 mg prn. APAP 1000 mg TID. rivaroxaba n 10 mg qd for DVT prophylaxi s. Monitor pain relief Disorder o f urinary bladder 03343816 N32.9 myrbetriq 50 mg daily Essential hypertension 66908736 I10 metoprolol er 100 mg hs monitor bp Gastroesop hageal reflux disease without esophagitis 821830129 K21.9 protonix 40 mg dailytums q4 hr prn Gout 78812992 M10.9 allopurino l 100 mg daily lidocaine patch daily right knee diclofenac 1% to knees bid cholchecin e 0.6 2-tabs the 0.6 mg qd prn oxycodone 7.5 mg q4 hrprn tramadol 50 mg q4 hr prn Hyperlipidemia 03496895 E78.5 atorvastat in 80 mg daily Pain in left knee 501250 7720 32267 M25.562 oxycodone 7.5 mg q4 hr prn tramadol 50 mg q4 hr prn PT OT eval and treat 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 567141393 E11.9 diet controlled , not on meds for this accucheck prn [id number] JORDON MENENDEZ [address] [place] [phone] 07/02/2020 07:59:13 07/04/2020 13:33:53 Acute urinary tract infection 226374539 N39.0 recovered Acute-on-c hronic renal failure 876795363 N18.9 monitor labs Asthenia 96497940 R53.1 PT OT eval and treat monitor fall risk was ambulating with walker prior Cholecystitis 38204735 K 81.9 recovered Chronic at rial fibrillation 389031408 I48.20 lasix 40 mg daily metoprolol er 100 mg hs Congestive heart failure 01038160 I50.9 lasix 40 mg daily monitor resp status Constipation 30785156 K5 9.00 miralax daily Coronary arteriosclerosis 66028062 I25.10 monitor for any symptoms Generalize d osteoarthritis 507736000 M15.9 Needs PT/OT for strengthen ing, balance, gait training, safety and function. APAP 1000 mg TID. rivaroxaba n 10 mg qd for DVT prophylaxi s. Monitor pain relief Disorder o f urinary bladder 75702426 N32.9 myrbetriq 50 mg daily Essential hypertension 58364675 I10 metoprolol er 100 mg hs monitor bp Gastroesop hageal reflux disease without esophagitis 545101059 K21.9 protonix 40 mg dailytums q4 hr prn Gout 36371448 M10.9 allopurino l 100 mg daily lidocaine patch daily right knee diclofenac 1% to knees bid cholchecin e 0.6 2-tabs the 0.6 mg qd prn History of deep vein thrombosis 354459386 Z86.718 xarelto 10 mg daily Hyperlipidemia 48494820 E78.5 atorvastat in 80 mg daily Overactive urinary bladder 355005917 N32.81 myrbetriq 50 mg qd.monitor sxs. Pain in left knee 849769 1121 52053 M25.562 lidoderm patch daily prn PT OT eval and treat Renal mass 433733413 N28 .89 f/u with nephrologi st 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 742215389 E11.9 diet controlled , not on meds for this accucheck prn [id number] JORDON MENENDEZ [address] [place] [phone] 5 12/03/2020 08:55:59 12/10/2020 09:17:00 Generalized osteoarthritis 305448643 M15.9 Needs PT/OT for strengthen ing, balance, gait training, safety and function tizanadine 2 mg tid tramadol 50-100 mg q6hr prn x 7 days. APAP 650 mg q6hr . rivaroxaba n 10 mg qd for DVT prophylaxi s. Monitor pain relief Surgical i ncision wound of skin 8130182096 00 R23.8 monitor for any signs of infectionf u NEOS 12/10 as planned Acute-on-c hronic renal failure 340955378 N18.9 monitor labs Asthenia 74460745 R53.1 PT OT eval and treat monitor fall risk was ambulating with walker prior Cholecystitis 99535070 K 81.9 recovered Chronic at rial fibrillation 310958033 I48.20 lasix 40 mg am, 20 mg pm, Fri, Sat, Sun metoprolol er 100 mg hs Congestive heart failure 91962220 I50.9 lasix 40 mg am, 20 mg pm, Fri, Sat, Sun monitor resp status Constipation 81308672 K5 9.00 miralax daily prncolace bid Coronary arteriosclerosis 31313004 I25.10 monitor for any symptoms Disorder o f urinary bladder 26837127 N32.9 myrbetriq 50 mg daily Essential hypertension 96813151 I10 metoprolol er 100 mg hs monitor bp Gastroesop hageal reflux disease without esophagitis 014320548 K21.9 protonix 40 mg dailytums q4 hr prn Gout 70375197 M10.9 allopurino l 100 mg daily lidocaine patch daily right knee diclofenac 1% to knees bid prn cholchecin e 0.6 2-tabs qd prn Hyperlipidemia 19360355 E78.5 atorvastat in 80 mg daily Overactive urinary bladder 724162970 N32.81 myrbetriq 50 mg qd.monitor sxs. 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 379318444 E11.9 diet controlled , not on meds for this accucheck prn [id number] JORDON MENENDEZ SUKHDEEP [address] [place] [address] 5 12/04/2020 11:19:28 12/06/2020 13:53:27 Asthenia 73433921 R53.1 PT OT eval and treat monitor fall risk was ambulating with walker prior Surgical i ncision wound of skin 6919706374 00 R23.8 monitor for any signs of infectionf u NEOS 12/10 as planned Pain in right knee 76791 48769 89306 M25.561 tramadol 50 mg q6hr scheduledt izanadine 4 mg [id number] one 5 g q6hr prnknee immobilize r at night only [id number] LORNA SAUCEDO NP [address] [address] 5 12/11/2020 08:21:46 12/13/2020 15:18:13 Pain in right knee 7275157381 43560 M25.561 tramadol 50 mg q6hr scheduledt izanadine 2 mg z7paktalse one 5-10 mg q4hr prnknee immobilize r Surgical i ncision wound of skin 2672891220 00 R23.8 monitor for any signs of infectionf /u NEOS 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 190269249 E11.9 diet controlled , not on meds for this accucheck prn Overactive urinary bladder 305942967 N32.81 myrbetriq 50 mg qd.monitor sxs. Hyperlipidemia 45405284 E78.5 atorvastat in 80 mg daily History of deep vein thrombosis 676190467 Z86.718 xarelto 10 mg daily Gout 74627124 M10.9 allopurino l 100 mg daily lidocaine patch daily right knee diclofenac 1% to knees bid prn cholchecin e 0.6 2-tabs qd prn Gastroesop hageal reflux disease without esophagitis 220585495 K21.9 protonix 40 mg dailytums q4 hr prn Essential hypertension 44563297 I10 metoprolol er 100 mg hs monitor bp Generalize d osteoarthritis 808164340 M15.9 Needs PT/OT for strengthen ing, balance, gait training, safety and function tizanadine 2 mg tid tramadol 50 mg qid -100 mg q6hr prn APAP 650 mg q6hr . rivaroxaba n 10 mg qd for DVT prophylaxi s. Monitor pain relief Coronary arteriosclerosis 23110193 I25.10 monitor for any symptoms Constipation 02989541 K5 9.00 miralax daily prncolace bid Congestive heart failure 63525116 I50.9 lasix 40 mg am monitor resp status Chronic at rial fibrillation 914668612 I48.20 lasix 40 mg am metoprolol er 100 mg hs Asthenia 96889201 R53.1 PT OT eval and treat monitor fall risk was ambulating with walker prior Acute-on-c hronic renal failure 998339856 N18.9 monitor labs [id number] Inge Rodríguez MD [facility] [address] [place] [address] rd [place] [address] 12/12/2020 16:13:14 12/17/2020 11:12:37 Pain in right knee 9377317729 44922 M25.561 Still with sig. pain, but relieved [...] 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 229750304 E11.9 Diet controlled .Monitor sugars prn. Overactive urinary bladder 117730072 N32.81 Continue myrbetriq 50 mg qd.Monitor urinary function. Hyperlipidemia 90516395 E78.49 Continue atorvastat in 80 mg qd.Monitor labs as outpt. History of deep vein thrombosis 041968305 Z86.718 Currently on Xarelto for DVT prophylaxi s. But not on it mcfp due to hx of GI bleed.Lorna tor for sxs. Gout 37737201 M10.09 Continue allopurino l 100 mg qd and colchicine 0.6 2 tabs qd prn for flares.Mon itro for sxs. Gastroesop hageal reflux disease without esophagitis 969978562 K21.9 No current sxs.Contin ue pantoprazo le 40 mg qd and tums q 4 hrs prnMonitor for sxs. Essential hypertension 41686498 I10 Good control on metoprolol ER 100 mg qd..Monito r BP and labs. Generalize d osteoarthritis 191350389 M15.0 Continue pain meds as above.Lorna tor sxs. Coronary arteriosclerosis 80262558 I25.10 With sig. hx.Continu e metoprolol as above.F/U with cardio as planned. Constipation 81279291 K5 9.09 miralax daily prncolace bid Congestive heart failure 93964310 I50.[address]Appe ars euvolemic. Continue metoprolol 100 mg qd and lasix 40 mg amMonitor resp. status, fluid status, wts and labs. Chronic at rial fibrillation 057094462 I48.0 Rate in good control on metoprolol ER 100 mg qd.Not on chronic AC due to GI bleed. Currently on Xarelto for 30 days post-op.Mo nitor HR and bleeding risk. Chronic ki dney disease stage 3A 000598474 N18.31 Stable at baseline.C ontinue to avoid nephrotoxi c meds as able.Monit or labs.Renal consult prn. [id number] LORNA SAUCEDO NP [facility] TARANGO [address] [place] [phone] 5 12/13/2020 12:39:28 12/17/2020 12:46:43 Pain in right knee 1812737187 59543 M25.561 tramadol 50 mg q6hr scheduledt izanadine 2 mg a6zydktzxq one 5-10 mg q4hr prnknee immobilize r Surgical i ncision wound of skin 0801381109 00 R23.8 monitor for any signs of infectionf /u NEOS [id number] LORNA SAUCEDO NP RORY TARANGO [address] [place] [address] 45983-631 5 12/16/2020 10:18:46 12/17/2020 13:39:35 Asthenia 51486158 R53.1 PT OT eval and treat monitor fall risk was ambulating with walker prior Pain in right knee 17345 14349 30043 M25.561 tramadol 50 mg q6hr scheduledt izanadine 2 mg [id number] one 5-10 mg q4hr prnknee immobilize r [id number] OLRNA SAUCEDO NP [facility] [address] [place] [address] 83549-858 5 12/20/2020 12:36:08 12/24/2020 11:10:32 Gout 97423767 M10.09 allopurino l 100 mg daily lidocaine patch daily right knee diclofenac 1% to knees bid prn cholchecin e 0.6 2-tabs qd prn Pain in right knee 37441 66911 05579 M25.561 tramadol 50 mg q6hr scheduledt izanadine 2 mg [id number] one 5-10 mg q4hr prnknee immobilize r Surgical i ncision wound of skin 6974852169 00 R23.8 monitor for any signs of infectionf /u NEOS [id number] LORNA SAUCEDO NP [facility] TARANGO [address] [place] [address] 03336-690 5 12/23/2020 08:51:19 12/25/2020 15:10:59 Generalized osteoarthritis 799550852 M15.0 Needs PT/OT for strengthen ing, balance, gait training, safety and function tizanadine 2 mg tid tramadol 50 mg qid -100 mg q6hr prn APAP 650 mg q6hr . rivaroxaba n 10 mg qd for DVT prophylaxi s. Monitor pain relief Surgical i ncision wound of skin 0784848031 00 R23.8 monitor for any signs of infectionf /u NEOS Pain in right knee 73937 37750 02063 M25.561 tramadol 50 mg q6hr scheduledt izanadine 2 mg [id number] one 5-10 mg q4hr prnknee immobilize r Gout 77306100 M10.09 allopurino l 100 mg daily lidocaine patch daily right knee diclofenac 1% to knees bid prn cholchecin e 0.6 2-tabs qd prn- hold during naproxynna proxyn 500 mg bid x 7 days [id number] JORDON MENENDEZ [address] [place] [phone] 5 12/27/2020 11:12:53 12/30/2020 15:10:57 Surgical incision wound of skin 8077233216 00 R23.8 monitor for any signs of infectionf /u NEOS Pain in right knee 65338 16214 87131 M25.561 tramadol 50 mg q6hr scheduledt izanadine 2 mg e9edzyjnfq one 5-10 mg q4hr prn [id number] JORDON MENENDEZ SUKHDEEP [address] [place] [address] 75195-537 5 12/30/2020 10:50:14 01/01/2021 14:58:34 Surgical incision wound of skin 8415793068 00 R23.8 monitor for any signs of infectionf /u NEOS Pain in right knee 74888 61923 99397 M25.561 tramadol 50 mg q6hr scheduled- change to q8 hr for 7 daystizana dine 2 mg i1gswdxmoy one 5-10 mg q4hr prn--d/c the 10 mg dose Asthenia 11870468 R53.1 PT OT eval and treat monitor fall risk was ambulating with walker prior [id number] JORDON MENENDEZ [address] [place] [address] [place] [address]636 5 12/31/2020 10:59:03 01/01/2021 15:38:08 Cgotu-kq-yrrpqfu renal failure 773155023 N18.9 monitor labssend to ED for JOSE CARLOS [id number] JORDON MENENDEZ SUKHDEEP [address] [facility] [place] [address] 01/07/2021 08:34:28 01/09/2021 14:53:44 Uhyhg-wr-qjpcnbg renal failure 067074422 N18.9 monitor labssend to ED for JOSE CARLOS Asthenia 48653174 R53.1 PT OT eval and treat monitor fall risk was ambulating with walker prior Chronic at rial fibrillation 354582545 I48.0 lasix 40 mg daily, 20 mg Fr/Sa/Ching metoprolol er 100 mg hs Chronic ki dney disease stage 3A 460870415 N18.31 monitor labs and urine output Congestive heart failure 40703552 I50.22 lasix 40 mg daily, 20 mg Fr/Sa/Ching monitor resp status Constipation 43814422 K5 9.09 miralax daily prncolace bid Generalize d osteoarthritis 645068241 M15.0 Needs PT/OT for strengthen ing, balance, gait training, safety and function APAP 650 mg q6hr .oxycodone 5 mg q4hr prnMonitor pain relief Coronary arteriosclerosis 92342124 I25.10 monitor for any symptoms Disorder o f urinary bladder 40736364 N32.9 myrbetriq 50 mg daily Essential hypertension 42269652 I10 metoprolol er 100 mg hs monitor bp Gastroesop hageal reflux disease without esophagitis 350573552 K21.9 protonix 40 mg dailytums q4 hr prn Gout 65108073 M10.09 allopurino l 100 mg daily diclofenac 1% to knees bid prn cholchecin e 0.6 2-tabs qd prn History of deep vein thrombosis 306284990 Z86.718 monitor Hyperlipidemia 99961998 E78.49 atorvastat in 80 mg daily Overactive urinary bladder 753474984 N32.81 myrbetriq 50 mg qd.monitor sxs. Pain in right knee 37100 81789 98116 M25.561 oxycodone 5 mg q4hr prn Renal mass 721732523 N28 .89 f/u with nephrologi stmonitor labs Surgical i ncision wound of skin 3525087365 00 R23.8 monitor for any signs of infectionf /u NEOS 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 729558340 E11.9 diet controlled , not on meds for this accucheck prnlispro sliding scale [id number] Inge Rodríguez MD [address] [place] [address] 5 01/09/2021 15:45:40 01/14/2021 12:02:05 Zycbn-by-vjiqzly renal failure 555482809 N18.9 Almost back to baseline.C ontinue to avoid nephrotoxi c meds as able.Ginette nue to encourage po fluids.Mon itor labs.Renal f/u as planned. Asthenia 22161819 R53.1 Continues to be very deconditio ellis, due to multiple complicati ons since original admission. Needs PT/OT for strengthen ing, balance, gait training, safety and function.C ontinue fall precaution s.Monitor for safety. Chronic at rial fibrillation 121364510 I48.0 Rate in good control on metoprolol ER 100 mg qd.Not on chronic AC due to hx of GI bleed.Lorna tor HR and bleeding risk. Chronic ki dney disease stage 3A 312045600 N18.31 As above. Congestive heart failure 93079399 I50.[address]Appe ars euvolemic. Continue metoprolol 100 mg qd and lasix 40 mg qam with extra 20 mg at 2pm on Fr/Sa/SuMo nitor resp. status, fluid status, wts and labs. Constipation 80664296 K5 9.09 Continue bowel meds as ordered. Generalize d osteoarthritis 035007503 M15.0 Continue APAP 650 mg q 6 hrs prn, and oxycodone 5 mg q 4 hrs prnPT/OT as above.Lorna tor pain relief Coronary arteriosclerosis 87774748 I25.10 No current sxs.Contin eu meds as above.Lorna tor for sxs.F/U with cardio as planned. Renal mass 751218369 N28 .89 f/u with nephrologi stmonitor labs Surgical i ncision wound of skin 1346279827 00 R23.8 monitor for any signs of infectionf /u NEOS 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 265561131 E11.9 diet controlled , not on meds for this accucheck prnlispro sliding scale Pain in right knee 48211 25856 10762 M25.561 Still with sig. pain, but relieved [...] with ortho as planned. Overactive urinary bladder 771484420 N32.81 Continue myrbetriq 50 mg qd.Monitor urinary function. Hyperlipidemia 09820570 E78.49 Continue atorvastat in 80 mg qd.Monitor labs as outpt. History of deep vein thrombosis 955389812 Z86.718 No longer on ACMonitor for sxs. Gout 85956432 M10.09 Continue allopurino l 100 mg qd and colchicine 0.6 2 tabs qd prn for flares. Monitor for sxs. Gastroesop hageal reflux disease without esophagitis 309732787 K21.9 No current sxs.Contin ue pantoprazo le 40 mg qd and tums q 4 hrs prnMonitor for sxs. Essential hypertension 23748031 I10 Good control on meds as above.Lorna tor BP and labs. [id number] JORDON MENENDEZ [address] [place] [address] [phone] 5 01/10/2021 12:10:44 01/14/2021 12:05:06 Pain in right knee 2610418291 85022 M25.561 oxycodone 5 mg q4hr prn Surgical i ncision wound of skin 5940973843 00 R23.8 monitor for any signs of infectionf /u NEOS Asthenia 63745980 R53.1 PT OT eval and treat monitor fall risk was ambulating with walker prior [id number] LORNA SAUCEDO NP [facility] [address] [place] [phone] 5 01/15/2021 08:23:33 01/17/2021 15:03:46 Surgical incision wound of skin 8189923576 00 R23.8 monitor for any signs of infectionf /u NEOS Pain in right knee 11506 73103 18569 M25.561 tylenol prn Acute-on-c hronic renal failure 566778914 N18.9 monitor labsimprov ing kidney function Asthenia 23360740 R53.1 PT OT eval and treat monitor fall risk was ambulating with walker prior Chronic at rial fibrillation 340623442 I48.0 lasix 40 mg daily, 20 mg Fr/Sa/Ching metoprolol er 100 mg hs Chronic ki dney disease stage 3A 266976469 N18.31 monitor labs and urine output Congestive heart failure 14271492 I50.22 lasix 40 mg daily, 20 mg Fr/Sa/Ching monitor resp status Constipation 41735568 K5 9.09 miralax daily prncolace bid Coronary arteriosclerosis 16649483 I25.10 monitor for any symptoms Generalize d osteoarthritis 253227598 M15.0 Needs PT/OT for strengthen ing, balance, gait training, safety and function APAP 650 mg q6hr . Monitor pain relief Disorder o f urinary bladder 53767296 N32.9 myrbetriq 50 mg daily Essential hypertension 24941913 I10 metoprolol er 100 mg hs monitor bp Gastroesop hageal reflux disease without esophagitis 208638025 K21.9 protonix 40 mg dailytums q4 hr prn Gout 95213652 M10.09 allopurino l 100 mg daily diclofenac 1% to knees bid prn cholchecin e 0.6 2-tabs qd prnnaproxy n 500 mg bid for 5 days to 01/19 History of deep vein thrombosis 043438672 Z86.718 monitor Hyperlipidemia 45243743 E78.49 atorvastat in 80 mg daily Overactive urinary bladder 093772012 N32.81 myrbetriq 50 mg qd.monitor sxs. 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 628029783 E11.9 diet controlled , not on meds for this accucheck prnlispro sliding scale Renal mass 117630138 N28 .89 f/u with nephrologi stmonitor labs Health Concerns Section Related Observation LastModified by Organization Detai ls LastModified Time None Recorded Concern Status LastModified by Organization Details LastModified Time None Recorded Advance Directives Directive Y: CPR-hospital ok, no dialy sis , ok for iv. hydration, art nut. Payers Insurance Date Sequence Insurance Name Policy Number Policy Conklin Covered Member ID Conklin Member ID Guarantor Name 01/14/2021 2 FOR LIFE ( - MEDICARE SUPPLEMENT) Margo Fang [id number] Margo Fang 01/08/2021 1 MEDICARE B-[place]: [employer] [facility] Margo Fang [id number] Margo Fang Notes Date Note Type Note Provider Name and Address Organization Details Recorded Time 12/31/2020 text/html ROS as noted in the HPI seen today for acute rounding visit, CAOx3 ambulating in the [place] with PT and walker, contact guard, ambulating well, she denies any distress or discomfort, labs show JOSE CARLOS of unknown cause-possible moderate po intake, will send her to hospital for further eval LORNA SAUCEDO NP [address] [facility], [address], [place], [address], [employer] 12/31/2020 11:35:16 01/07/2021 text/html ROS as noted in the HPI seen today for initial intake- 80 yof [...] cms, no nausea, ate well at breakfast, [employer] aware of monitoring how many voids and charting this LORNA SAUCEDO NP [address] [facility], [address], [place], [address], [employer] 01/08/2021 10:18:32 01/09/2021 text/html ROS as noted in the HPI This is an 80 yo woman who [...] DDD, obesity, and anemia. Inge Rodríguez MD [address] [place] [address], [address], [place], [address], [facility] - [employer] 01/13/2021 20:29:24 01/10/2021 text/html ROS as noted in the HPI seen today for acute rounding visit, CAOx3 ambulating in the PT gym, gait more steady, right knee swelling almost gone, incision healed with a couple of small scabs, good cms to leg, she assures me she is voiding well and drinking well, staff report she has been voiding LORNA SAUCEDO NP [address] [facility], [address], [place], [address], [employer] 01/10/2021 12:19:50 01/15/2021 text/html ROS as noted in the HPI seen today for discharge summary-- 80 yof [...] cms, no nausea, ate well at breakfast, [employer] aware of monitoring how many voids and charting this, she is a supervision with ambulation and walker, kidney function is slowly improving LORNA SAUCEDO NP [address] [facility], [address], [place], [address], [employer] 01/15/2021 11:11:26 OBGyn Episode No OBEpisode recorded.
--- NOTE | 2025-01-19 16:11 | HO.NEPHOV_ITS ---
Vital Signs 01/19/25 16:12 Height 5 ft 5 in Weight 159 lb 4 oz BMI 26.5 BP 140/60 H Blood Pressure Location Lt brachial Position Sitting Pulse 71 Pulse Source Pulse Oximeter Pulse Oximetry (%) 97 Oxygen Delivery Method Room Air Intake Visit Reasons: 1mon Retacrit f/u w/labs-LVM Business Unit Director Required: No Accompanied by: Daughter Allergies lisinopril (LISINOPRIL) Allergy (Severe, Verified 01/19/25 16:12) ANGIOEDEMA HPI Comments Details: Margo was seen in follow-up of her chronic kidney disease. She has medical history significant for CKD, CAD, ischemic cardiomyopathy with ICD, HFrEF, paroxysmal atrial fibrillation, HTN, T2DM, anemia, arthritis, urinary incontinence, secondary hyperparathyroidism, GERD . She has H/O JOSE CARLOS superimposed on CKD with creatinine going up to 8.0. JOSE CARLOS was thought to be 2/2 to combination of recent gastroenteritis and also patient being on diuretics ( reported to be taking double doses than prescribed.) and contrast exposure on 04/09. Her creatinine improved / stable with supportive care. She does not have any chest pain, shortness of breath, worsening pedal edema. She has no urinary symptoms. She has a renal mass and is followed by a urologist. She does not have any weight loss, hematuria, night sweats. She tries to be compliant with a low- sodium diet. Her diuretics are adjusted by cardiology. She has not had any further gout attacks. [facility] [place] Medical History Acute kidney injury Secondary hyperparathyroidism Essential (primary) hypertension Renal mass Chronic kidney disease, stage 3b Surgical History History of knee replacement Family History Mother Heart disease Father Lung cancer Social History Alcohol intake: never Patient Tobacco Use Status: Former Tobacco user Review of Systems Const All systems reviewed & are unremarkable except as noted in HPI and below Physical Exam Vital Signs: Last Vital Signs Pulse 71 01/19/25 16:12 BP 140/60 H 01/19/25 16:12 Pulse Ox 97 01/19/25 16:12 Oxygen Delivery Method Room Air 01/19/25 16:12 BMI result Body Mass Index 26.5 Const General: comfortable and no acute distress Orientation/consciousness: patient oriented x3 HEENT Head: Yes normocephalic Mouth: Normal oral and palatal mucosa present Eyes EOM: EOMs intact bilaterally Neck Neck: Yes supple Resp Auscultation: clear to auscultation bilaterally Cardio Jugular venous distension: no JVD Rate: regular rate GI Palpation (GI): Soft to palpation Auscultation: normal bowel sounds General: Yes no CVA tenderness Back/Spine/Pelvis Back: no CVA tenderness Skin General skin exam: no rashes or lesions noted Neuro General: patient oriented x3 and moves all extremities Extrem General: Yes no pedal edema Office Meds epoetin jorge-epbx 10,000 unit/mL injection solution Performing Provider: Jaspreet Menchaca MD [facility] [place] [facility] Administered by: Jaspreet Menchaca MD on 01/19/25 16:17 Dose Route Admin Location Dispensed Lot Number Expiration Date [facility] [employer] 40,000 unit subcut LUE 4 mL [id number] 04/22/26 0697-9683-17 [employer] Total Dispensed Waste 4 mL 0 % Assessment & Plan Assessment & Plan (1) Essential (primary) hypertension: Code(s): I10 - Essential (primary) hypertension Category: Medical (2) Secondary hyperparathyroidism: Code(s): N25.81 - Secondary hyperparathyroidism of renal origin Category: Medical (3) Chronic kidney disease, stage 3b: Code(s): N18.32 - Chronic kidney disease, stage 3b Category: Medical (4) Renal mass: Code(s): N28.89 - Other specified disorders of kidney and ureter Category: Medical (5) Anemia in chronic kidney disease (CKD): Code(s): N18.9 - Chronic kidney disease, unspecified; D63.1 - Anemia in chronic kidney disease Category: Medical Qualifiers: Chronic kidney disease stage: stage 4 (severe) Qualified Code(s): N18.4 - Chronic kidney disease, stage 4 (severe); D63.1 - Anemia in chronic kidney disease Plan Margo has stage III B CKD at baseline. She had JOSE CARLOS's from cardiorenal syndrome with loss of GFR. She is hemodynamically stable . Her volume status is optimal. Her diuretics are adjusted by [facility] cards. She should be on low- sodium diet. She should avoid nonsteroidal anti-inflammatory medications. Her renal functions are close baseline. I gave [id number] Units of Procrit in the office today. She will need activated Vitamin D soon. I did not make any other medication changes today. She follows-up with her urologist for her renal mass. All questions were answered Orders: Orders AMB Epoetin Injection Practice Supplied Today D63.1 - Anemia in chronic kidney disease, N18.4 - Chronic kidney disease, stage 4 (severe) Complete Blood Count Auto Diff 1 Month D63.1 - Anemia in chronic kidney disease, I10 - Essential (primary) hypertension, N18.32 - Chronic kidney disease, stage 3b, N18.4 - Chronic kidney disease, stage 4 (severe), N25.81 - Secondary hyperparathyroidism of renal origin, N28.89 - Other specified disorder s of kidney and ureter Creatinine 1 Month D63.1 - Anemia in chronic kidney disease, I10 - Essential (primary) hypertension, N18.32 - Chronic kidney disease, stage 3b, N18.4 - Chronic kidney disease, stage 4 (severe), N25.81 - Secondary hyperparathyroidism of renal origin, N28.89 - Other specified disorders of kidney and ureter Parathyroid Hormone Intact 1 Month D63.1 - Anemia in chronic kidney disease, I10 - Essential (primary) hypertension, N18.32 - Chronic kidney disease, stage 3b, N18.4 - Chronic kidney disease, stage 4 (severe), N25.81 - Secondary hyperparathyroidism of renal origin, N28.89 - Other specified disorders of kidney and ureter Blood Urea Nitrogen 1 Month D63.1 - Anemia in chronic kidney disease, I10 - Essential (primary) hypertension, N18.32 - Chronic kidney disease, stage 3b, N18.4 - Chronic kidney disease, stage 4 (severe), N25.81 - Secondary hyperparathyroidism of renal origin, N28.89 - Other specified disorders of kidney and ureter Electrolytes 1 Month D63.1 - Anemia in chronic kidney disease, I10 - Essential (primary) hypertension, N18.32 - Chronic kidney disease, stage 3b, N18.4 - Chronic kidney disease, stage 4 (severe), N25.81 - Secondary hyperparathyroidism of renal origin, N28.89 - Other specified disorders of kidney and ureter Calcium 1 Month D63.1 - Anemia in chronic kidney disease, I10 - Essential (primary) hypertension, N18.32 - Chronic kidney disease, stage 3b, N18.4 - Chronic kidney disease, stage 4 (severe), N25.81 - Secondary hyperparathyroidism of renal origin, N28.89 - Other specified disorders of kidney and ureter Coding Level of Care Code Est Pt Level 4 (49468) Diagnoses Essential (primary) hypertension I10 Secondary hyperparathyroidism N25.81 Chronic kidney disease, stage 3b N18.32 Renal mass N28.89 Anemia in stage 4 chronic kidney disease N18.4; D63.1 Chronic kidney disease stage: stage 4 (severe)
[2025-01-19 16:12] VITALS: BP 140/60; PULSE 71; O2SAT 97; BMI 26.5
== END 2025-01-19 16:28 | disposition home or self-care (01) ==
LOC: HO.HKA 16:07
PROVIDERS: PCP Internal Medicine; Visit Provider Internal Medicine Nephrology
DX: I12.9 Hypertensive chronic kidney disease with stage 1 through stage 4 chronic kidney disease, or unspecified chronic kidney disease (principal); N25.81 Secondary hyperparathyroidism of renal origin; N18.32 Chronic kidney disease, stage 3b; N28.89 Other specified disorders of kidney and ureter; N18.4 Chronic kidney disease, stage 4 (severe); D63.1 Anemia in chronic kidney disease
CPT/HCPCS: 99214

== ENCOUNTER → 2025-01-19 16:06 | Outpatient (BNVA) | payer MEDICARE, OTHER, SELFPAY | PROVIDERS: PCP Internal Medicine; Visit Provider Internal Medicine Nephrology | DX: I12.9 Hypertensive chronic kidney disease with stage 1 through stage 4 chronic kidney disease, or unspecified chronic kidney disease (principal); E11.22 Type 2 diabetes mellitus with diabetic chronic kidney disease; D63.1 Anemia in chronic kidney disease; N18.4 Chronic kidney disease, stage 4 (severe); N25.81 Secondary hyperparathyroidism of renal origin; N28.89 Other specified disorders of kidney and ureter | CPT/HCPCS: 96372; 99212; Q5106 ==

== ENCOUNTER 2025-02-28 16:09 | Outpatient (AMB) | payer MEDICARE, OTHER, SELFPAY ==
--- NOTE | 2025-02-28 16:15 | HO.NEPHOV_ITS ---
Vital Signs 02/28/25 16:16 Height 5 ft 5 in Weight 157 lb 6 oz BMI 26.2 BP 138/60 Blood Pressure Location Lt brachial Position Sitting Pulse 72 Pulse Source Pulse Oximeter Pulse Oximetry (%) 98 Oxygen Delivery Method Room Air Intake Visit Reasons: 1mon f/u w/labs-Conf Airline Reservation Agent Required: No Accompanied by: Daughter Allergies lisinopril (LISINOPRIL) Allergy (Severe, Verified 02/28/25 16:16) ANGIOEDEMA HPI Comments Details: Margo was seen in follow-up of her chronic kidney disease. She has medical history significant for CKD, CAD, ischemic cardiomyopathy with ICD, HFrEF, paroxysmal atrial fibrillation, HTN, T2DM, anemia, arthritis, urinary incontinence, secondary hyperparathyroidism, GERD . She has H/O JOSE CARLOS superimposed on CKD with creatinine going up to 8.0. JOSE CARLOS was thought to be 2/2 to combination of recent gastroenteritis and also patient being on diuretics ( reported to be taking double doses than prescribed.) and contrast exposure on 04/09. Her creatinine improved / stable with supportive care. She does not have any chest pain, shortness of breath, worsening pedal edema. She has no urinary symptoms. She has a renal mass and is followed by a urologist. She does not have any weight loss, hematuria, night sweats. She tries to be compliant with a low- sodium diet. Her diuretics are adjusted by cardiology. She has not had any further gout attacks. [facility] Medical History Acute kidney injury Secondary hyperparathyroidism Essential (primary) hypertension Renal mass Chronic kidney disease, stage 3b Surgical History History of knee replacement Family History Mother Heart disease Father Lung cancer Social History Alcohol intake: never Patient Tobacco Use Status: Former Tobacco user Review of Systems Const All systems reviewed & are unremarkable except as noted in HPI and below Physical Exam Vital Signs: Last Vital Signs Pulse 72 02/28/25 16:16 BP 138/60 02/28/25 16:16 Pulse Ox 98 02/28/25 16:16 Oxygen Delivery Method Room Air 02/28/25 16:16 BMI result Body Mass Index 26.2 Const General: comfortable and no acute distress Orientation/consciousness: patient oriented x3 HEENT Head: Yes normocephalic Mouth: Normal oral and palatal mucosa present Eyes EOM: EOMs intact bilaterally Neck Neck: Yes supple Resp Auscultation: clear to auscultation bilaterally Cardio Jugular venous distension: no JVD Rate: regular rate GI Palpation (GI): Soft to palpation Auscultation: normal bowel sounds General: Yes no CVA tenderness Back/Spine/Pelvis Back: no CVA tenderness Skin General skin exam: no rashes or lesions noted Neuro General: patient oriented x3 and moves all extremities Extrem General: Yes no pedal edema Office Meds epoetin jorge-epbx 10,000 unit/mL injection solution Performing Provider: Jaspreet Menchaca MD [place] [facility] [facility] [place] [facility] Administered by: Jaspreet Menchaca MD on 02/28/25 16:22 Dose Route Admin Location Dispensed Lot Number Expiration Date [facility] [employer] 40,000 unit subcut LUE 4 mL [id number] 09/19/25 4105-1578-96 [employer] PHARM Total Dispensed Waste 4 mL 0 % Assessment & Plan Assessment & Plan (1) Essential (primary) hypertension: Code(s): I10 - Essential (primary) hypertension Category: Medical (2) Secondary hyperparathyroidism: Code(s): N25.81 - Secondary hyperparathyroidism of renal origin Category: Medical (3) Chronic kidney disease, stage 3b: Code(s): N18.32 - Chronic kidney disease, stage 3b Category: Medical (4) Renal mass: Code(s): N28.89 - Other specified disorders of kidney and ureter Category: Medical (5) Anemia in chronic kidney disease (CKD): Code(s): N18.9 - Chronic kidney disease, unspecified; D63.1 - Anemia in chronic kidney disease Category: Medical Qualifiers: Chronic kidney disease stage: stage 4 (severe) Qualified Code(s): N18.4 - Chronic kidney disease, stage 4 (severe); D63.1 - Anemia in chronic kidney disease Abena Aragon has stage III B CKD at baseline. She had JOSE CARLOS's from cardiorenal syndrome with loss of GFR. She is hemodynamically stable . Her volume status is optimal. Her diuretics are adjusted by [facility] cards. She should be on low- sodium diet. She should avoid nonsteroidal anti-inflammatory medications. Her renal functions are close baseline. I gave [id number] Units of Procrit in the office today. She will need activated Vitamin D soon. I did not make any other medication changes today. She follows-up with her urologist for her renal mass. All questions were answered Orders: Orders Blood Urea Nitrogen 4 Weeks D63.1 - Anemia in chronic kidney disease, I10 - Es sential (primary) hypertension, N18.32 - Chronic kidney disease, stage 3b, N18.4 - Chronic kidney disease, stage 4 (severe), N25.81 - Secondary hyperparathyroidism of renal origin Creatinine 4 Weeks D63.1 - Anemia in chronic kidney disease, I10 - Essential (primary) hypertension, N18.32 - Chronic kidney disease, stage 3b, N18.4 - Chronic kidney disease, stage 4 (severe), N25.81 - Secondary hyperparathyroidism of renal origin AMB Epoetin Injection Practice Supplied Today D63.1 - Anemia in chronic kidney disease, N18.4 - Chronic kidney disease, stage 4 (severe) Complete Blood Count Auto Diff 4 Weeks D63.1 - Anemia in chronic kidney disease, I10 - Essential (primary) hypertension, N18.32 - Chronic kidney disease, stage 3b, N18.4 - Chronic kidney disease, stage 4 (severe), N25.81 - Secondary hyperparathyroidism of renal origin Electrolytes 4 Weeks D63.1 - Anemia in chronic kidney disease, I10 - Essential (primary) hypertension, N18.32 - Chronic kidney disease, stage 3b, N18.4 - Chronic kidney disease, stage 4 (severe), N25.81 - Secondary hyperparathyroidism of renal origin Coding Level of Care Code Est Pt Level 4 (87032) Diagnoses Essential (primary) hypertension I10 Secondary hyperparathyroidism N25.81 Chronic kidney disease, stage 3b N18.32 Renal mass N28.89 Anemia in stage 4 chronic kidney disease N18.4; D63.1 Chronic kidney disease stage: stage 4 (severe)
[2025-02-28 16:16] VITALS: BP 138/60; PULSE 72; O2SAT 98; BMI 26.2
--- OUTSIDE RECORDS SUMMARY | 2025-03-01 00:48 | XMS_ITS | Data Portability ---
Author Organization [facility], Main Office Address [address] [place] [address] [address] [place]DE[place] [address] Care Team Providers Care Principal Network Architect Name Role Phone RORY TARANGO 1ST FLOOR OTHER [phone] NEIL COYLE Primary Care Provider Assessment No [...] Address Organization Details Recorded Time Cholecysti tis [id number] [facility] 13:[facility]09 Type 2 diabetes mellitus without complicati on 946511810 Active 2019 Marcelina alonzo [facility] 0 13:27:09 Essential hypertensi on 01541112 Active 2019 Marcelina alonzo [facility] 0 13:27:10 Coronary arterioscl erosis 67192812 Active 2019 Marcelina Ponce [facility] 0 13:27:12 Chronic atrial fibrillati on 492162616 Active 2019 Marcelina Ponce [facility] 0 13:27:18 Gastroesop hageal reflux disease without esophagiti s 426811477 Active 2019 Marcelina alonzo [facility] 0 13:27:20 Disorder of urinary bladder 40990924 Active 2019 Marcelina alonzo, [facility] 0 13:30:10 History of deep vein thrombosis 882174162 Active 2019 Marcelina Ponce null, [facility] 0 14:51:52 Congestive heart failure 96286421 Active 2019 Marcelina alonzo, [facility] 0 14:51:55 Renal mass 908273684 Active 2019 Marcelina Ponce null, [facility] 0 14:52:00 Asthenia 54041002 Active 2019 Marcelina alonzo, [facility] 0 14:52:02 Hyperlipid emia 14832297 Active 2019 LORNA SAUCEDO NP [address] [facility], [address], [place], [address] , [facility] [employer] [facility] 0 08:12:22 Acute urinary tract infection 130691014 Active 2019 LORNA SAUCEDO NP [address] [facility], [address], [place], [address] , [facility] [employer] [facility] 0 08:12:35 Gout 99703480 Active 2019 LORNA SAUCEDO NP [address] [facility], [address], [place], [address] , [facility] [employer] [facility] 0 08:21:44 Acute-on-c hronic renal failure 555125062 Active 2019 Inge Rodríguez MD [address] [place] [address], [address], [place], [address] , [facility] [employer] [facility] 0 00:35:34 Overactive urinary bladder 466331032 Active 2020 Inge Rodríguez MD [address] [place] [address], [address], [place], [address] , [facility] [employer] [facility] 1 00:36:36 Total knee replacemen t Active 2020 LORNA SAUCEDO NP [address] [facility], [address], [place], [address] , [facility] [employer] [facility] 1 09:22:16 Pain in left knee Active 2020 LORNA SAUCEDO NP [address], [address], [place], [address] , [facility] 1 09:22:52 Constipati on 23420166 Active 2020 Inge Rodríguez MD [address], [address], [place], [address] , [facility] 1 16:36:30 Generalize d osteoarthr itis 266888115 Active 2020 Inge Rodríguez MD [address], [address], [place], [address] , [facility] 1 23:37:24 Surgical incision wound of skin 074560622583 Active 2020 right knee LORNA SAUCEDO NP [address], [address], [place], [address] , [facility] 1 08:57:59 Pain in right knee Active 2020 LORNA SAUCEDO NP [address], [address], [place], [address] , [facility] 1 11:38:33 Chronic kidney disease stage 3A 506192388 Active 2020 Inge Rodríguez MD [address], [place], [address] , [facility] 1 01:37:03 Problem Notes None recorded. Medical Equipment None Reported. Allergies Allergen ID Allergen Name Allergen Category Reaction Reaction Severity Criticality Documentation Date Start Date Code Code System Note Provider Name and Address Organization Details Recorded Time 40511 lisinopri l medicatio n Not available Not available Not available 04/04/2019 61308 RxNorm Marcelina alonzo [employer] [facility] 0 13:28:04 08431 Dilaudid medicatio n Not available Not available Not available 01/07/2021 08813 3 RxNorm LORNA SAUCEDO NP [address], [address], [place], [address], [facility] 1 08:35:20 Vitals Date Recorded Body height Heart rate Respiratory rate Body temperature Oxygen saturation Systolic And Diastolic Provider Name and Address Organization Details Last Updated DateTime 1 162.56 cm 58 /min 18 /min 96.8 [degF] 96 % 99/57 mm[Hg] LORNA SAUCEDO NP [address] [facility], [address], [place], [address], [facility] 1 11:30:38 Date Recorded Body height Heart rate Respiratory rate Body temperature Oxygen saturation Systolic And Diastolic Provider Name and Address Organization Details Last Updated DateTime 1 162.56 cm 71 /min 20 /min 97.6 [degF] 96 % 113/61 mm[Hg] LORNA SAUCEDO NP [address] [facility], [address], [place], [address], [facility] 08:38:54 Date Recorded Body height Body mass index (BMI) Body weight Heart rate Respiratory rate Body temperature Oxygen saturation Systolic And Diastolic Provider Name and Address Organization Details Last Updated DateTime 1 162.56 cm 26.2 kg/m2 26136.4 8 g 70 /min 16 /min 97 [degF] 96 % 112/61 mm[Hg] Inge Rodríguez MD [address] [facility], [address], [place], [address], [facility] 16:25:57 Date Recorded Body height Heart rate Respiratory rate Body temperature Oxygen saturation Systolic And Diastolic Provider Name and Address Organization Details Last Updated DateTime 1 162.56 cm 70 /min 16 /min 97 [degF] 96 % 112/61 mm[Hg] LORNA SAUCEDO NP [address] [facility], [address], [place], [address], [facility] 1 12:16:58 Date Recorded Body height Heart rate Respiratory rate Body temperature Oxygen saturation Systolic And Diastolic Provider Name and Address Organization Details Last Updated DateTime 1 162.56 cm 91 /min 18 /min 97 [degF] 97 % 108/61 mm[Hg] LORNA SAUCEDO NP [address] [facility], [address], [place], [address], [facility] 10/27/202 1 11:04:33 Social History Question Answer Notes LastModified by Organizat ion Details LastModified Time Tobacco Smoking Status Former Smoker quit 2013 Not Available [employer] 01/16/2020 03:13:20 Do You Have An Advance Directive? Yes [facility] Ok, No Dialysis , Ok For Iv. Hydration, Art Nut. Information not available 01/07/2021 How Much Tobacco Do You Chew? None [id number] Information not available 01/16/2020 What Is Your Code Status? DNI Information not available 01/07/2021 Legal Guardian? 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 12/12/2019 [id number] Information not available 01/16/2020 Has Tobacco Cessation Counseling Been Provided? No N/a As Pt. No Longer Smokes Information not available 12/16/2020 How Many Years Have You Smoked Tobacco? 50 [id number] Information not available 01/16/2020 Sex: Female Functional Status Question Answer Note LastModified by Organizat ion Details LastModified Time Do you or have you ever used any other forms of tobacco or nicotine? No Information not available 12/16/2020 What is your level of alcohol consumption? Occasional [id number] Information not available 01/16/2020 Do you or have you ever used smokeless tobacco? Never used smokeless tobacco [id number] Information not available 01/16/2020 Do you or have you ever used e-cigarettes or vape? Never used electronic cigarettes [id number] Information not available 01/16/2020 Mental Status None recorded. Family History Nothing Reported Notes:father-lung ca Medical History No medical history recorded. Gynecological HistoryNo gynecological history recorded. Obstetrics History GPAL:G 0 P 0 0 0 0 Immunizations Vaccine Type Date Status Note Provider Nam e and Address Organization Details Recorded Time COVID-19, mRNA, LNP-S, PF, 30 mcg/0.3 mL dose completed Julieth alonzo [place] - [facility] 02/19/2021 13:36:20 Influenza, high-dose, quadrivalent, PF 1 completed Julieth Robkaiser [facility], [facility] 03/19/2021 09:32:37 Influenza, split virus, quadrivalent, preservative 0 completed Julieth Robkaiser [facility], [facility] 01/12/2020 10:17:01 Pneumococcal conjugate PCV 13 5 completed [facility], [facility] 08/12/2020 09:42:53 pneumococcal polysaccharide PPV23 4 completed [facility], [facility] 08/12/2020 09:43:04 [facility]dap 4 [facility]/12/[facility] 09:43:14 Past Encounters Encounter ID Performer Location Encounter Start Date Encounter Closed Date Diagnosis/Indication Diagnosis SNOMED-CT Code Diagnosis ICD10 Code Diagnosis IMO Codes Diagnosis Note [id number] Marcelina Ponce NP [address] [place] [address] [place] [address] 04/04/2019 13:17:17 04/04/2019 14:15:53 Cholecystitis 85467664 K80.10 recs for no surgical interventi on abd pain resolved on DC from acute care Pt without abd pain today continued on augmentin bid - no stop date- will call acute care and see if there was a stop date planned. WBC wnl monitor for pain mgmt 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 628026927 E11.9 diet controlled , not on meds for this accucheck prn Essential hypertension 32142223 I10 lasix 20mg on mon, wed, fri ADD per cards- metoprolol XL 50mg qd (hold for SBP<100), spironolac tone 12.5mg bid, and entresto 49/51mg bid (to change down to 24/26mg bid dose for consistent SBP<100) pt had been imdur in the past but [facility] does not want to restart this. monitor bp, labs Coronary arteriosclerosis 62978887 I25.10 atorvastat in 80mg qd metoprolol XL 50mg qd nitroglyce rin SL tab q5min for 3 doses monitor lfts prn Chronic at rial fibrillation 792426238 I48.21 on coumadin digoxin 0.125 qd on mon, wed, fri pt also on lovenox for DVT, see above metoprolol XL 50mg qd monitor for rate control, titrate coumadin prn Gastroesop hageal reflux disease without esophagitis 069624930 K21.9 pantoprazo le 40mg qd monitor for sx Disorder o f urinary bladder 88709111 N32.81 myrbetriq 50mg ER qd monitor for sx Renal mass 642253741 N28 .89 right sided is followed by nephrologi st no plan for interventi on at this time for this however CT in acute care finding of new left sided renal mass- to f/u with nephrologi st for this. History of deep vein thrombosis 705686822 Z86.718 ? DVT in acute care Pt has ordered lovenox and coumadin will continue AC therapy for now and request documentat ion from acute care regarding this US to RUE today stat monitor Asthenia 05710094 R53.1 PT/OT to eval and treat monitor for fall risk Congestive heart failure 69592501 I50.22 lasix 20mg on mon, wed, fri ADD per cards- metoprolol XL 50mg qd (hold for SBP<100), spironolac tone 12.5mg bid, and entresto 49/51mg bid (to change down to 24/26mg bid dose for consistent SBP<100) f/u with cards monitor resp status, fluid status, daily weights [id number] Marcelina Ponce NP [address] [place] [address] 04/06/2019 14:48:45 04/12/2019 14:33:13 History of deep vein thrombosis 127626993 Z86.718 DVT to the RUE in acute care pt on lovenox - coumadin bridge to DC lovenox when coumadin is in therapeuti c range monitor Essential hypertension 42773164 I10 lasix 20mg on mon, wed, fri [...] continue to monitor Chronic at rial fibrillation 382245085 I48.21 on coumadin digoxin 0.125 qd on mon, wed, fri metoprolol XL 50mg qd monitor for rate control, titrate coumadin prn Osteoarthr itis of left knee joint 3018820650 54775 M17.12 pt getting lidocaine patch, apap 650mg prn, muscle rub she also sees specialist outpt and gets injections . will DC prn apap and schedule 1,000mg tid monitor for effect continue with PT/OT to maximize function as tolerated. [id number] Marcelina Ponce, JORDON [address] [address] [place] [address] 04/07/2019 13:58:39 04/12/2019 14:36:15 Osteoarthritis of left knee joint 6687667592 49745 M17.12 pt getting lidocaine patch to bilat knees, muscle rub started on apap 1,000mg tid yesterday with little effect, will change to prn start tramadol 25mg bid prn Pt sees specialist - will order a consult monitor for pain mgmt continue with PT/OT to maximize function as tolerated. History of deep vein thrombosis 361269428 Z86.718 DVT to the RUE in acute care pt on lovenox - coumadin bridge coumadin in therapeuti c range today, will DC lovenox. continue coumadin and titrate prn monitor Chronic at rial fibrillation 078530507 I48.21 on coumadin digoxin 0.125 qd on mon, wed, fri metoprolol XL 50mg qd monitor for rate control, titrate coumadin prn Essential hypertension 97733840 I10 stable lasix 20mg on mon, wed, fri metoprolol XL 50mg qd (hold for SBP<100), spironolac tone 12.5mg bid entresto 49/51mg bid (to change down to 24/26mg bid dose for consistent SBP<100) monitor bp, labs Cholecystitis 98925303 K 80.10 recs for no surgical interventi on abd pain resolved on DC from acute care Pt without abd pain today continued on augmentin bid - no stop date- will call acute care and see if there was a stop date planned. WBC wnl monitor for pain mgmt Congestive heart failure 82629971 I50.22 lasix 20mg on mon, wed, fri metoprolol XL 50mg qd (hold for SBP<100), spironolac tone 12.5mg bid f/u with cards monitor resp status, fluid status, daily weights Coronary arteriosclerosis 49396798 I25.10 atorvastat in 80mg qd metoprolol XL 50mg qd nitroglyce rin SL tab q5min for 3 doses monitor lfts prn Gastroesop hageal reflux disease without esophagitis 055418053 K21.9 [place]oprazo [place] 40[place] [id number] Mohsen Collins MD [address] [address] 04/10/2019 11:20:58 04/12/2019 14:47:48 Acute cholecystitis 23652169 K81.0 see HPIconserv ative management monitor sxrefer back to surger for change in condition Asthenia 88613784 R53.1 PT OT eval and treatmonit or fall riskwas ambulating with walker prior Chronic at rial fibrillation 557181020 I48.21 monitor and adjust coumadinmo nitor for rate control Congestive heart failure 87377956 I50.22 monitor respirator y function and fluid statusfoll ow weightstit rate meds prn Gastroesop hageal reflux disease without esophagitis 483014853 K21.9 stable on PPImonitor for sx control Essential hypertension 89867853 I10 monitor and titrate current medsfollow ed by gertrude gardner with concerns [id number] Marcelina Ponce NP [address] [address] 04/11/2019 13:13:45 04/18/2019 08:34:20 Acute cholecystitis 78535063 K81.0 see HPIconserv ative management monitor sxrefer back to surger for change in condition Asthenia 69682960 R53.1 PT OT eval and treatmonit or fall riskwas ambulating with walker prior Chronic at rial fibrillation 566835991 I48.21 monitor and adjust coumadinmo nitor for rate control Osteoarthr itis of left knee joint 9944164278 61209 M17.12 pt getting lidocaine patch to bilat knees, muscle rub D/C tramadol today- believe this may be causing increased confusion/ lethargy continue apap 1,000mg tid prn awaiting f/u with ortho, ?need for steroidal injections monitor for pain mgmt continue with PT/OT to maximize function as tolerated. History of deep vein thrombosis 694757507 Z86.718 DVT to the RUE in acute care swelling has improved lovenox now DCd, pt remains on coumadin continue coumadin and titrate prn monitor Essential hypertension 36015467 I10 stable lasix 20mg on wed, wed, wed metoprolol XL 50mg qd (hold for SBP<100), spironolac tone 12.5mg bid entresto 49/51mg bid (to change down to 24/26mg bid dose for consistent SBP<100) monitor bp, labs Pain in left arm 1886695 00 M79.602 see HPI pain to left [...] DC of tramadol. monitor Congestive heart failure 27776028 I50.22 lasix 20mg on wed, wed, fri metoprolol XL 50mg qd (hold for SBP<100), spironolac tone 12.5mg bid f/u with cards monitor resp status, fluid status, daily weights [id number] JORDON MENENDEZ [address] [address] 12/08/2019 08:07:07 12/11/2019 16:45:18 Chronic atrial fibrillation 262646376 I48.20 lasix 40 mg daily metoprolol er 50 mg hs Congestive heart failure 24694406 I50.9 lasix 40 mg daily monitor resp status Essential hypertension 88168237 I10 metoprolol 50 mg hs monitor bp Hyperlipidemia 48030432 E78.5 lipitor 80 mg daily Acute urin polina tract infection 553837456 N39.0 cefuroxime 250 mg bid to 12/11 Gout 41542240 M10.9 predisone taper norco 5/325 q4hr prn diclofenac 1% to knees [id number] Inge Rodríguez MD [facility] [address] [place] [address] 12/12/2019 18:51:23 12/18/2019 10:30:51 Chronic atrial fibrillation 315521980 I48.21 Rate in good control on metoprolol as above. Not on AC Monitor HR Congestive heart failure 02738065 I50.22 I25.5 Z95.810 Pt. feels back to baseline. Continue lasix 40 mg qd and metoprolol 50 mg qd. Very deconditio ellis, needs PT/OT for strengthen ing and function. Monitor resp. status, fluid status, wts and labs. Essential hypertension 19062670 I10 In good control on meds as above. Monitor BP and labs Hyperlipidemia 34868675 E78.49 Continue atorvastat in 80 mg qd. Monitor labs as outpt. Acute urin polina tract infection 025412612 N30.00 Completes course of cefuroxime 250 mg BID today. Monitor for recurrence . Gout 41466511 M10.072 Doing well. Continue prednisone taper, to complete 12/17 Pain much improved, will decrease hydrocodon e/APAP 5/325 to q 6 hrs prn. Contine diclofenac 1% to knees and lidocaine patch. Monitor sxs. Acute-on-c hronic renal failure 052866786 N17.8 N18.2 BUN/cr in 07/2019 was 27/1.2, so sig worse than baseline still. Continue to avoid nephrotoxi c meds. Monitor labs. Renal consult. [id number] JORDON MENENDEZ [address] [place] [address] 12/13/2019 09:32:51 12/15/2019 09:06:00 Congestive heart failure 20457018 I50.9 lasix 40 mg daily monitor resp status Gout 53925095 M10.9 predisone taper to 12/17 norco 5/325 q4hr prn diclofenac 1% to knees 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 502301019 E11.9 diet controlled , not on meds for this accucheck prn [id number] JORDON MENENDEZ [address] [place] [address] 12/18/2019 09:46:04 12/21/2019 15:26:11 Congestive heart failure 53842202 I50.9 lasix 40 mg daily monitor resp status Essential hypertension 17390318 I10 metoprolol 50 mg hs monitor bp 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 561950379 E11.9 diet controlled , not on meds for this accucheck prn [id number] LORNA JORDON SAUCEDO [facility] [address] [place] [address] 12/25/2019 10:13:38 12/27/2019 10:05:24 Gout 15582043 M10.9 predisone taper 20 mg daily ax4 days, then 10 mg daily x4 days norco 5/325 q4hr prn diclofenac 1% to knees Asthenia 55768619 R53.1 PT OT eval and treat monitor fall risk was ambulating with walker prior [id number] LORNA SAUCEDO NP RORY SUKHDEEP [address] [place] [address] 01/01/2020 12:24:46 01/04/2020 12:53:43 Gout 63012615 M10.9 predisone taper 20 mg daily ax4 days, then 10 mg daily x4 days norco 5/325 q4hr prn diclofenac 1% to knees Asthenia 99304088 R53.1 PT OT eval and treat monitor fall risk was ambulating with walker prior [id number] LORNA SAUCEDO NP [address] [address] 01/05/2020 08:36:09 01/08/2020 13:24:34 Iamld-lr-ujkisyb renal failure 221176252 N18.9 monitor labs Asthenia 64816627 R53.1 PT OT eval and treat monitor fall risk was ambulating with walker prior Chronic at rial fibrillation 662351682 I48.20 lasix 40 mg daily metoprolol er 50 mg hs Congestive heart failure 88416649 I50.9 lasix 40 mg daily monitor resp status Coronary arteriosclerosis 83765860 I25.10 monitor for any symptoms Essential hypertension 16368828 I10 metoprolol 50 mg hs monitor bp Gastroesop hageal reflux disease without esophagitis 742849567 K21.9 monitor for symptoms Gout 55244457 M10.9 norco 5/325 q4hr prn diclofenac 1% to knees Hyperlipidemia 43671481 E78.5 lipitor 80 mg daily 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 322888814 E11.9 diet controlled , not on meds for this accucheck prn [id number] LORNA SAUCEDO NP [address] [address] 04/19/2020 07:49:30 04/23/2020 08:17:38 Chronic atrial fibrillation 162936981 I48.20 lasix 40 mg daily metoprolol er 50 mg hs Congestive heart failure 35581089 I50.9 lasix 40 mg daily monitor resp status Coronary arteriosclerosis 45931595 I25.10 monitor for any symptoms Disorder o f urinary bladder 53249755 N32.9 myrbetriq 50 mg daily Essential hypertension 89583077 I10 metoprolol 50 mg hs monitor bp Gastroesop hageal reflux disease without esophagitis 871592982 K21.9 protonix 40 mg daily Gout 72383839 M10.9 allopurino l 100 mg daily lidocaine patch daily right knee diclofenac 1% to knees 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 375691642 E11.9 diet controlled , not on meds for this accucheck prn Hyperlipidemia 67805446 E78.5 lipitor 80 mg daily [id number] Inge Rodríguez MD [address] [address] 04/22/2020 13:43:45 04/25/2020 11:37:29 Congestive heart failure 33893328 I50.22 I25.5 Z95.810 Appears euvolemic. Continue lasix 40 mg qd and metoprolol 150 mg qd. Monitor resp. status, fluid status, wts and labs. Acute-on-c hronic renal failure 539183227 N17.8 N18.2 At new baseline. Continue to avoid nephrotoxi c meds. Monitor labs. Renal consult prn. Chronic at rial fibrillation 352144398 I48.21 Rate in good control on metoprolol as above. Not on AC Monitor HR Essential hypertension 54099070 I10 In good control on meds as above. Monitor BP and labs Hyperlipidemia 51807050 E78.49 Continue atorvastat in 80 mg qd. Monitor labs as outpt. Gout 33138812 M10.072 No current sxs. Elevated uric acid inpt. Continue allopurino l 100 mg qd. and colchicine prn. Monitor sxs. and recheck uric acid prn. Coronary arteriosclerosis 95592459 I25.10 monitor for any symptoms Gastroesop hageal reflux disease without esophagitis 165928903 K21.9 No current sxs. Continue pantoprazo le 40 mg qd. Monitor for sxs. 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 937027469 E11.9 diet controlled , not on meds for this Check accuchecks prn Bilateral knee pain 1187 568390 5823447 M25.561 M25.562 M15.0 Scheduled for TKR on [...] function. Monitor pain relief. Overactive urinary bladder 328596626 N32.81 Continue myrbetriq 50 mg qd. monitor sxs. [id number] JORDON MENENDEZ [address] [address] 04/29/2020 07:38:33 05/01/2020 11:27:39 Acute urinary tract infection 184608468 N39.0 recovered Acute-on-c hronic renal failure 623530102 N18.9 monitor labs Asthenia 64812205 R53.1 PT OT eval and treat monitor fall risk was ambulating with walker prior Cholecystitis 81850641 K 81.9 recovered Chronic at rial fibrillation 343253336 I48.20 lasix 40 mg daily metoprolol er 50 mg hs Congestive heart failure 54590964 I50.9 lasix 40 mg daily monitor resp status Coronary arteriosclerosis 72252009 I25.10 monitor for any symptoms Disorder o f urinary bladder 29980146 N32.9 myrbetriq 50 mg daily Essential hypertension 97426425 I10 metoprolol 150 mg hs monitor bp Gastroesop hageal reflux disease without esophagitis 445379747 K21.9 protonix 40 mg dailytums q4 hr prn Gout 51273893 M10.9 allopurino l 100 mg daily lidocaine patch daily right knee diclofenac 1% to knees bid cholchecin e 0.6 2-tabs the 0.6 mg qd prn vicodin 5/325 mg q4 hr prn History of deep vein thrombosis 913535814 Z86.718 resolved Hyperlipidemia 12856141 E78.5 lipitor 80 mg daily Overactive urinary bladder 462904509 N32.81 myrbetriq 50 mg qd. monitor sxs. Renal mass 965089838 N28 .89 f/u with nephrologi st 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 794813274 E11.9 diet controlled , not on meds for this accucheck prn [id number] JORDON MENENDEZ SUKHDEEP [address] [place] [address] 05/31/2020 07:34:55 06/05/2020 10:23:00 Type 2 diabetes mellitus without complication 313543129 E11.9 diet controlled , not on meds for this accucheck prn Renal mass 605665346 N28 .89 f/u with nephrologi st Overactive urinary bladder 574657212 N32.81 myrbetriq 50 mg qd.monitor sxs. Hyperlipidemia 89713336 E78.5 atorvastat in 80 mg daily History of deep vein thrombosis 158504700 Z86.718 xarelto 10 mg daily Gout 58512565 M10.9 allopurino l 100 mg daily lidocaine patch daily right knee diclofenac 1% to knees bid cholchecin e 0.6 2-tabs the 0.6 mg qd prn oxycodone 5 mg q4 hrprn tramadol 50 mg q4 hr prn Gastroesop hageal reflux disease without esophagitis 217209927 K21.9 protonix 40 mg dailytums q4 hr prn Essential hypertension 58759692 I10 metoprolol er 100 mg hs monitor bp Coronary arteriosclerosis 87764823 I25.10 monitor for any symptoms Congestive heart failure 49800514 I50.9 lasix 40 mg daily monitor resp status Chronic at rial fibrillation 620071561 I48.20 lasix 40 mg daily metoprolol er 50 mg hs Pain in left knee 769307 8213 90488 M25.562 oxycodone 5 mg q4 hrprn tramadol 50 mg q4 hr prn [id number] Inge Rodríguez MD [address] [place] [address] 06/03/2020 13:11:50 06/11/2020 14:52:39 Generalized osteoarthritis 320955852 M15.0 Z96.652 S/P TKR on 05/23. Needs [...] Monitor pain relief. Bilateral knee pain 1187 954917 0164076 M25.561 M25.562 M15.0 With continued right knee pain also. Continue PT/OT as above. Monitor pain relief. Congestive heart failure 98730929 I50.22 I25.5 Z95.810 Appears euvolemic. Continue lasix 40 mg qd and metoprolol 100 mg qd. Monitor resp. status, fluid status, wts and labs. Acute-on-c hronic renal failure 678092126 N17.8 N18.2 Stable at new baseline. Continue to avoid nephrotoxi c meds. Monitor labs. Renal consult prn. 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 Monitor HR Essential hypertension 93355291 I10 In good control on meds as above. Monitor BP and labs Hyperlipidemia 16588430 E78.49 Continue atorvastat in 80 mg qd. Monitor labs as outpt. Gout 33300687 M10.072 No current sxs., but with elevated uric acid inpt. Continue allopurino l 100 mg qd. and use colchicine prn sxs. Monitor sxs. and recheck uric acid prn. Coronary arteriosclerosis 56840308 I25.10 Continue meds as above. Monitor for any symptoms F/U with cardio as planned. Gastroesop hageal reflux disease without esophagitis 827680558 K21.9 No current sxs. Continue pantoprazo le 40 mg qd. Monitor for sxs. 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 Monitor accuchecks prn Overactive urinary bladder 858575736 N32.81 Continue myrbetriq 50 mg qd. monitor sxs. Constipation 48527859 K5 9.03 No BM since transfer here. Says she doesn't usually have problems at home, so likely due to meds and immobility . Will continue colace 100 mg BID and give dose of MOM tonight and consider other meds if no BM by tomorrow. Monitor bowel function. [id number] LORNA SAUCEDO NP [address] [address] 06/04/2020 08:11:50 06/07/2020 13:33:34 Pain in left knee 7790512767 03145 M25.562 oxycodone 5 mg q4 hrprn tramadol 50 mg q4 hr prnPT OT eval and treat Congestive heart failure 97551934 I50.9 lasix 40 mg daily monitor resp status [id number] JORDON MENENDEZ [address] [address] 06/07/2020 11:43:39 06/11/2020 15:04:18 Pain in left knee 5148346521 52968 M25.562 oxycodone 5 mg q4 hr prn tramadol 50 mg q4 hr prn PT OT eval and treat Gastroesop hageal reflux disease without esophagitis 380873307 K21.9 protonix 40 mg dailytums q4 hr prn History of deep vein thrombosis 800377394 Z86.718 xarelto 10 mg daily [id number] LORNA SAUCEDO NP [address] [address] 06/10/2020 15:29:11 06/13/2020 15:30:41 Pain in left knee 7638359406 21121 M25.562 oxycodone 5 mg q4 hr prn, 7.5 mg am tramadol 50 mg q4 hr prn PT OT eval and treat Generalize d osteoarthritis M15.9 Needs PT/OT for strengthen ing, balance, gait training, safety and function. oxycodone 7.5 mg qAM and 5 mg q 4 hrs prn. APAP 1000 mg TID. tramadol 50 mg q 4 hrs prn rivaroxaba n 10 mg qd for DVT prophylaxi s. Monitor pain relief [id number] LORNA SAUCEDO NP [address] [address] 06/14/2020 12:44:17 06/17/2020 16:30:53 Generalized osteoarthritis M15.9 Needs PT/OT for strengthen ing, balance, gait training, safety and function. oxycodone 7.5 mg qAM and 5 mg q 4 hrs prn. APAP 1000 mg TID. tramadol 50 mg q 4 hrs prn rivaroxaba n 10 mg qd for DVT prophylaxi s. Monitor pain relief Pain in left knee 576904 6958 13962 M25.562 oxycodone 5 mg q4 hr prn, 7.5 mg am tramadol 50 mg q4 hr prn PT OT eval and treat [id number] OLRNA SAUCEDO NP [address] [address] 06/25/2020 08:29:30 06/27/2020 09:37:45 Lksgq-no-iwhcfyq renal failure 127127834 N18.9 monitor labs Asthenia 14704435 R53.1 PT OT eval and treat monitor fall risk was ambulating with walker prior Cholecystitis 71295837 K 81.9 recovered Chronic at rial fibrillation 794954639 I48.20 lasix 40 mg daily metoprolol er 50 mg hs Congestive heart failure 83670866 I50.9 lasix 40 mg daily monitor resp status Constipation 63938037 K5 9.00 miralax daily Coronary arteriosclerosis 21679137 I25.10 monitor for any symptoms Generalize d osteoarthritis M15.9 Needs PT/OT for strengthen ing, balance, gait training, safety and function. oxycodone 7.5 mg prn. APAP 1000 mg TID. rivaroxaba n 10 mg qd for DVT prophylaxi s. Monitor pain relief Disorder o f urinary bladder 94475817 N32.9 myrbetriq 50 mg daily Essential hypertension 54187568 I10 metoprolol er 100 mg hs monitor bp Gastroesop hageal reflux disease without esophagitis 756936186 K21.9 protonix 40 mg dailytums q4 hr prn Gout 33255057 M10.9 allopurino l 100 mg daily lidocaine patch daily right knee diclofenac 1% to knees bid cholchecin e 0.6 2-tabs the 0.6 mg qd prn oxycodone 7.5 mg q4 hrprn tramadol 50 mg q4 hr prn Hyperlipidemia 43206586 E78.5 atorvastat in 80 mg daily Pain in left knee 747369 1430 61489 M25.562 oxycodone 7.5 mg q4 hr prn tramadol 50 mg q4 hr prn PT OT eval and treat 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 164651104 E11.9 diet controlled , not on meds for this accucheck prn [id number] JORDON MENENDEZ [address] [address] 07/02/2020 07:59:13 07/04/2020 13:33:53 Acute urinary tract infection 700554579 N39.0 recovered Acute-on-c hronic renal failure 703742802 N18.9 monitor labs Asthenia 79524015 R53.1 PT OT eval and treat monitor fall risk was ambulating with walker prior Cholecystitis 71472780 K 81.9 recovered Chronic at rial fibrillation 921737199 I48.20 lasix 40 mg daily metoprolol er 100 mg hs Congestive heart failure 65890285 I50.9 lasix 40 mg daily monitor resp status Constipation 52102740 K5 9.00 miralax daily Coronary arteriosclerosis 97084033 I25.10 monitor for any symptoms Generalize d osteoarthritis 593320164 M15.9 Needs PT/OT for strengthen ing, balance, gait training, safety and function. APAP 1000 mg TID. rivaroxaba n 10 mg qd for DVT prophylaxi s. Monitor pain relief Disorder o f urinary bladder 60101287 N32.9 myrbetriq 50 mg daily Essential hypertension 20470438 I10 metoprolol er 100 mg hs monitor bp Gastroesop hageal reflux disease without esophagitis 713085478 K21.9 protonix 40 mg dailytums q4 hr prn Gout 78574640 M10.9 allopurino l 100 mg daily lidocaine patch daily right knee diclofenac 1% to knees bid cholchecin e 0.6 2-tabs the 0.6 mg qd prn History of deep vein thrombosis 433928424 Z86.718 xarelto 10 mg daily Hyperlipidemia 79391100 E78.5 atorvastat in 80 mg daily Overactive urinary bladder 389922460 N32.81 myrbetriq 50 mg qd.monitor sxs. Pain in left knee 670475 1572 08781 M25.562 lidoderm patch daily prn PT OT eval and treat Renal mass 784170636 N28 .89 f/u with nephrologi st 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 870816263 E11.9 diet controlled , not on meds for this accucheck prn [id number] JORDON MENENDEZ SUKHDEEP [address] [place] [address] [place] [address] 12/03/2020 08:55:59 12/10/2020 09:17:00 Generalized osteoarthritis 758532361 M15.9 Needs PT/OT for strengthen ing, balance, gait training, safety and function tizanadine 2 mg tid tramadol 50-100 mg q6hr prn x 7 days. APAP 650 mg q6hr . rivaroxaba n 10 mg qd for DVT prophylaxi s. Monitor pain relief Surgical i ncision wound of skin 0730711803 00 R23.8 monitor for any signs of infectionf u NEOS 12/10 as planned Acute-on-c hronic renal failure 213847884 N18.9 monitor labs Asthenia 09767576 R53.1 PT OT eval and treat monitor fall risk was ambulating with walker prior Cholecystitis 44877504 K 81.9 recovered Chronic at rial fibrillation 843087990 I48.20 lasix 40 mg am, 20 mg pm, Fri, Sat, Sun metoprolol er 100 mg hs Congestive heart failure 45277907 I50.9 lasix 40 mg am, 20 mg pm, Fri, Sat, Sun monitor resp status Constipation 48802651 K5 9.00 miralax daily prncolace bid Coronary arteriosclerosis 68066306 I25.10 monitor for any symptoms Disorder o f urinary bladder 69463310 N32.9 myrbetriq 50 mg daily Essential hypertension 19759363 I10 metoprolol er 100 mg hs monitor bp Gastroesop hageal reflux disease without esophagitis 981265746 K21.9 protonix 40 mg dailytums q4 hr prn Gout 21338392 M10.9 allopurino l 100 mg daily lidocaine patch daily right knee diclofenac 1% to knees bid prn cholchecin e 0.6 2-tabs qd prn Hyperlipidemia 50725206 E78.5 atorvastat in 80 mg daily Overactive urinary bladder 416309201 N32.81 myrbetriq 50 mg qd.monitor sxs. 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 055001872 E11.9 diet controlled , not on meds for this accucheck prn [id number] JORDON MENENDEZ [address] [place] [address] 12/04/2020 11:19:28 12/06/2020 13:53:27 Asthenia 50099868 R53.1 PT OT eval and treat monitor fall risk was ambulating with walker prior Surgical i ncision wound of skin 7821079059 00 R23.8 monitor for any signs of infectionf u NEOS 12/10 as planned Pain in right knee 79231 34862 17411 M25.561 tramadol 50 mg q6hr scheduledt izanadine 4 mg e2wevimaxm one 5 g q6hr prnknee immobilize r at night only [id number] JORDON MENENDEZ [address] [place] [address] 12/11/2020 08:21:46 12/13/2020 15:18:13 Pain in right knee 0369193337 82864 M25.561 tramadol 50 mg q6hr scheduledt izanadine 2 mg q1ilpvqlsf one 5-10 mg q4hr prnknee immobilize r Surgical i ncision wound of skin 0871170997 00 R23.8 monitor for any signs of infectionf /u NEOS 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 653957863 E11.9 diet controlled , not on meds for this accucheck prn Overactive urinary bladder 815996334 N32.81 myrbetriq 50 mg qd.monitor sxs. Hyperlipidemia 72374551 E78.5 atorvastat in 80 mg daily History of deep vein thrombosis 605509347 Z86.718 xarelto 10 mg daily Gout 35925482 M10.9 allopurino l 100 mg daily lidocaine patch daily right knee diclofenac 1% to knees bid prn cholchecin e 0.6 2-tabs qd prn Gastroesop hageal reflux disease without esophagitis 213808536 K21.9 protonix 40 mg dailytums q4 hr prn Essential hypertension 99490908 I10 metoprolol er 100 mg hs monitor bp Generalize d osteoarthritis 273221661 M15.9 Needs PT/OT for strengthen ing, balance, gait training, safety and function tizanadine 2 mg tid tramadol 50 mg qid -100 mg q6hr prn APAP 650 mg q6hr . rivaroxaba n 10 mg qd for DVT prophylaxi s. Monitor pain relief Coronary arteriosclerosis 73534351 I25.10 monitor for any symptoms Constipation 53362075 K5 9.00 miralax daily prncolace bid Congestive heart failure 22751388 I50.9 lasix 40 mg am monitor resp status Chronic at rial fibrillation 071227976 I48.20 lasix 40 mg am metoprolol er 100 mg hs Asthenia 83415471 R53.1 PT OT eval and treat monitor fall risk was ambulating with walker prior Acute-on-c hronic renal failure 629080805 N18.9 monitor labs [id number] Inge Rodríguez MD [address] [address] 12/12/2020 16:13:14 12/17/2020 11:12:37 Pain in right knee 7504125402 50083 M25.561 Still with sig. pain, but relieved [...] 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 742544462 E11.9 Diet controlled .Monitor sugars prn. Overactive urinary bladder 236507794 N32.81 Continue myrbetriq 50 mg qd.Monitor urinary function. Hyperlipidemia 55793379 E78.49 Continue atorvastat in 80 mg qd.Monitor labs as outpt. History of deep vein thrombosis 331427725 Z86.718 Currently on Xarelto for DVT prophylaxi s. But not on it long-term due to hx of GI bleed.Lorna tor for sxs. Gout 45965221 M10.09 Continue allopurino l 100 mg qd and colchicine 0.6 2 tabs qd prn for flares.Mon itro for sxs. Gastroesop hageal reflux disease without esophagitis 166163719 K21.9 No current sxs.Contin ue pantoprazo le 40 mg qd and tums q 4 hrs prnMonitor for sxs. Essential hypertension 14875218 I10 Good control on metoprolol ER 100 mg qd..Monito r BP and labs. Generalize d osteoarthritis 910983435 M15.0 Continue pain meds as above.Lorna tor sxs. Coronary arteriosclerosis 30653081 I25.10 With sig. hx.Continu e metoprolol as above.F/U with cardio as planned. Constipation 28057309 K5 9.09 miralax daily prncolace bid Congestive heart failure 39171149 I50.[address]Appe ars euvolemic. Continue metoprolol 100 mg qd and lasix 40 mg amMonitor resp. status, fluid status, wts and labs. Chronic at rial fibrillation 126256527 I48.0 Rate in good control on metoprolol ER 100 mg qd.Not on chronic AC due to GI bleed. Currently on Xarelto for 30 days post-op.Mo nitor HR and bleeding risk. Chronic ki dney disease stage 3A 540864053 N18.31 Stable at baseline.C ontinue to avoid nephrotoxi c meds as able.Monit or labs.Renal consult prn. [id number] JORDON MENENDEZ [address] [place] [address] rd [place] [address] 12/13/2020 12:39:28 12/17/2020 12:46:43 Pain in right knee 8900378559 74844 M25.561 tramadol 50 mg q6hr scheduledt izanadine 2 mg g9tdmfttyk one 5-10 mg q4hr prnknee immobilize r Surgical i ncision wound of skin 7501134036 00 R23.8 monitor for any signs of infectionf /u NEOS [id number] JORDON MENENDEZ [address] [place] [address] [place] [address] 12/16/2020 10:18:46 12/17/2020 13:39:35 Asthenia 92215522 R53.1 PT OT eval and treat monitor fall risk was ambulating with walker prior Pain in right knee 57911 37060 34251 M25.561 tramadol 50 mg q6hr scheduledt izanadine 2 mg o8nxdzkxxa one 5-10 mg q4hr prnknee immobilize r [id number] JORDON MENENDEZ SUKHDEEP [address] [place] [address] 12/20/2020 12:36:08 12/24/2020 11:10:32 Gout 16074014 M10.09 allopurino l 100 mg daily lidocaine patch daily right knee diclofenac 1% to knees bid prn cholchecin e 0.6 2-tabs qd prn Pain in right knee 46916 65622 52777 M25.561 tramadol 50 mg q6hr scheduledt izanadine 2 mg a1ftbdiuer one 5-10 mg q4hr prnknee immobilize r Surgical i ncision wound of skin 9288378469 00 R23.8 monitor for any signs of infectionf /u NEOS [id number] JORDON MENENDEZ SUKHDEEP [address] [place] [address] [place] [address] 12/23/2020 08:51:19 12/25/2020 15:10:59 Generalized osteoarthritis 310103514 M15.0 Needs PT/OT for strengthen ing, balance, gait training, safety and function tizanadine 2 mg tid tramadol 50 mg qid -100 mg q6hr prn APAP 650 mg q6hr . rivaroxaba n 10 mg qd for DVT prophylaxi s. Monitor pain relief Surgical i ncision wound of skin 3552092019 00 R23.8 monitor for any signs of infectionf /u NEOS Pain in right knee 08973 94848 27340 M25.561 tramadol 50 mg q6hr scheduledt izanadine 2 mg p1nxmobzra one 5-10 mg q4hr prnknee immobilize r Gout 34220447 M10.09 allopurino l 100 mg daily lidocaine patch daily right knee diclofenac 1% to knees bid prn cholchecin e 0.6 2-tabs qd prn- hold during naproxynna proxyn 500 mg bid x 7 days [id number] JORDON MENENDEZ [address] [place] [address] 5 12/27/2020 11:12:53 12/30/2020 15:10:57 Surgical incision wound of skin 1127280601 00 R23.8 monitor for any signs of infectionf /u NEOS Pain in right knee 76765 84029 16331 M25.561 tramadol 50 mg q6hr scheduledt izanadine 2 mg v2xjhyycmr one 5-10 mg q4hr prn [id number] JORDON MENENDEZ SUKHDEEP [address] [place] [address] 5 12/30/2020 10:50:14 01/01/2021 14:58:34 Surgical incision wound of skin 2569629913 00 R23.8 monitor for any signs of infectionf /u NEOS Pain in right knee 35174 40511 29767 M25.561 tramadol 50 mg q6hr scheduled- change to q8 hr for 7 daystizana dine 2 mg a8ezsqpcfr one 5-10 mg q4hr prn--d/c the 10 mg dose Asthenia 60937803 R53.1 PT OT eval and treat monitor fall risk was ambulating with walker prior [id number] JORDON MENENDEZ [address] [place] [address] 5 12/31/2020 10:59:03 01/01/2021 15:38:08 Wyuxy-yt-dkpoxcq renal failure 889059340 N18.9 monitor labssend to ED for JOSE CARLOS [id number] JORDON MENENDEZ [address] [address] [place] [address] 01/07/2021 08:34:28 01/09/2021 14:53:44 Scxcg-dl-qsicwcl renal failure 555449850 N18.9 monitor labssend to ED for JOSE CARLOS Asthenia 36994683 R53.1 PT OT eval and treat monitor fall risk was ambulating with walker prior Chronic at rial fibrillation 203394104 I48.0 lasix 40 mg daily, 20 mg Fr/Sa/Ching metoprolol er 100 mg hs Chronic ki dney disease stage 3A 693930131 N18.31 monitor labs and urine output Congestive heart failure 73460222 I50.22 lasix 40 mg daily, 20 mg Fr/Sa/Ching monitor resp status Constipation 06755446 K5 9.09 miralax daily prncolace bid Generalize d osteoarthritis 036979008 M15.0 Needs PT/OT for strengthen ing, balance, gait training, safety and function APAP 650 mg q6hr .oxycodone 5 mg q4hr prnMonitor pain relief Coronary arteriosclerosis 23115013 I25.10 monitor for any symptoms Disorder o f urinary bladder 59676278 N32.9 myrbetriq 50 mg daily Essential hypertension 13524117 I10 metoprolol er 100 mg hs monitor bp Gastroesop hageal reflux disease without esophagitis 308522150 K21.9 protonix 40 mg dailytums q4 hr prn Gout 76332967 M10.09 allopurino l 100 mg daily diclofenac 1% to knees bid prn cholchecin e 0.6 2-tabs qd prn History of deep vein thrombosis 288252596 Z86.718 monitor Hyperlipidemia 26405627 E78.49 atorvastat in 80 mg daily Overactive urinary bladder 643345288 N32.81 myrbetriq 50 mg qd.monitor sxs. 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 Asthenia 05591500 R53.1 Continues to be very deconditio ellis, due to multiple complicati ons since original admission. Needs PT/OT for strengthen ing, balance, gait training, safety and function.C ontinue fall precaution s.Monitor for safety. Chronic at rial fibrillation 328180733 I48.0 Rate in good control on metoprolol ER 100 mg qd.Not on chronic AC due to hx of GI bleed.Lorna tor HR and bleeding risk. Chronic ki dney disease stage 3A 697856769 N18.31 As above. Congestive heart failure 19317024 I50.[address]Appe ars euvolemic. Continue metoprolol 100 mg qd and lasix 40 mg qam with extra 20 mg at 2pm on Fr/Sa/SuMo nitor resp. status, fluid status, wts and labs. Constipation 72549334 K5 9.09 Continue bowel meds as ordered. Generalize d osteoarthritis 124428941 M15.0 Continue APAP 650 mg q 6 hrs prn, and oxycodone 5 mg q 4 hrs prnPT/OT as above.Lorna tor pain relief Coronary arteriosclerosis 54405810 I25.10 No current sxs.Contin eu meds as above.Lorna tor for sxs.F/U with cardio as planned. Renal mass 626514528 N28 .89 f/u with nephrologi stmonitor labs Surgical i ncision wound of skin 5209284774 00 R23.8 monitor for any signs of infectionf /u NEOS 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 037172028 E11.9 diet controlled , not on meds for this accucheck prnlispro sliding scale Pain in right knee 00748 08961 99525 M25.561 Still with sig. pain, but relieved [...] with ortho as planned. Overactive urinary bladder 097110602 N32.81 Continue myrbetriq 50 mg qd.Monitor urinary function. Hyperlipidemia 42298795 E78.49 Continue atorvastat in 80 mg qd.Monitor labs as outpt. History of deep vein thrombosis 590625834 Z86.718 No longer on ACMonitor for sxs. Gout 69223787 M10.09 Continue allopurino l 100 mg qd and colchicine 0.6 2 tabs qd prn for flares. Monitor for sxs. Gastroesop hageal reflux disease without esophagitis 876512864 K21.9 No current sxs.Contin ue pantoprazo le 40 mg qd and tums q 4 hrs prnMonitor for sxs. Essential hypertension 44787085 I10 Good control on meds as above.Lorna tor BP and labs. [id number] LORNA SAUCEDO NP [address] [address] 01/10/2021 12:10:44 01/14/2021 12:05:06 Pain in right knee 6250895623 78821 M25.561 oxycodone 5 mg q4hr prn Surgical i ncision wound of skin 9934071813 00 R23.8 monitor for any signs of infectionf /u NEOS Asthenia 39801027 R53.1 PT OT eval and treat monitor fall risk was ambulating with walker prior [id number] LORNA SAUCEDO NP [address] [address] 01/15/2021 08:23:33 01/17/2021 15:03:46 Surgical incision wound of skin 2846762800 00 R23.8 monitor for any signs of infectionf /u NEOS Pain in right knee 10997 22346 24703 M25.561 tylenol prn Acute-on-c hronic renal failure 164233272 N18.9 monitor labsimprov ing kidney function Asthenia 10663759 R53.1 PT OT eval and treat monitor fall risk was ambulating with walker prior Chronic at rial fibrillation 912096042 I48.0 lasix 40 mg daily, 20 mg Fr/Sa/Ching metoprolol er 100 mg hs Chronic ki dney disease stage 3A 771922705 N18.31 monitor labs and urine output Congestive heart failure 96089340 I50.22 lasix 40 mg daily, 20 mg Fr/Sa/Ching monitor resp status Constipation 70729828 K5 9.09 miralax daily prncolace bid Coronary arteriosclerosis 48616357 I25.10 monitor for any symptoms Generalize d osteoarthritis 562797000 M15.0 Needs PT/OT for strengthen ing, balance, gait training, safety and function APAP 650 mg q6hr . Monitor pain relief Disorder o f urinary bladder 13188034 N32.9 myrbetriq 50 mg daily Essential hypertension 05394693 I10 metoprolol er 100 mg hs monitor bp Gastroesop hageal reflux disease without esophagitis 470491483 K21.9 protonix 40 mg dailytums q4 hr prn Gout 86590097 M10.09 allopurino l 100 mg daily diclofenac 1% to knees bid prn cholchecin e 0.6 2-tabs qd prnnaproxy n 500 mg bid for 5 days to 01/19 History of deep vein thrombosis 272842435 Z86.718 monitor Hyperlipidemia 53212436 E78.49 atorvastat in 80 mg daily Overactive urinary bladder 552037824 N32.81 myrbetriq 50 mg qd.monitor sxs. 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 313174228 E11.9 diet controlled , not on meds for this accucheck prnlispro sliding scale Renal mass 870856588 N28 .89 f/u with nephrologi stmonitor labs [...] LIFE ( - MEDICARE SUPPLEMENT) Margo Fang [id number] Margo Fang 01/08/2021 1 MEDICARE B-MT: [employer] Margo Fang [id number] Margo Fang Notes Date Note Type Note [...] further eval LORNA SAUCEDO NP [address] [facility], [address], [place], [address], [employer] 12/31/2020 11:35:16 01/07/2021 text/html ROS as noted [...] cms, no nausea, ate well at breakfast, [employer] aware of monitoring how many voids and charting this LORNA SAUCEDO NP [address] [facility], [address], [place], [address], [facility] 01/08/2021 10:18:32 01/09/2021 text/html ROS as [...] and anemia. Inge Rodríguez MD [address] [facility], [address], [place], [address], [facility] 01/13/2021 20:29:24 01/10/2021 text/html ROS as noted in the HPI seen today for acute rounding visit, CAOx3 ambulating in the PT gym, gait more steady, right knee swelling almost gone, incision healed with a couple of small scabs, good cms to leg, she assures me she is voiding well and drinking well, staff report she has been voiding LORNA SAUCEDO NP [address] [facility], [address], [place], [address], Hita 01/10/2021 12:19:50 01/15/2021 text/html ROS as noted [...] cms, no nausea, ate well at breakfast, 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
--- OUTSIDE RECORDS SUMMARY | 2025-03-01 00:48 | XMS_ITS | Clinical Summary ---
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
--- OUTSIDE RECORDS SUMMARY | 2025-03-01 00:48 | XMS_ITS | Clinical Summary ---
Author Organization [facility] Prior to 08/19/[address] [place] [id number] Care Team Providers Care Measurement And Verification Engineer Name Role Phone Vee Chand MD Primary [...] age to complete this topic Care Teams Measurement And Verification Engineer Relationship Specialty Start Date End Date Vee Chand MD [address] [place] [address] PCP - General Internal Medicine 08/18/19
--- OUTSIDE RECORDS SUMMARY | 2025-03-01 00:48 | XMS_ITS | Data Portability ---
Author Organization [place] - [facility] Address [address] [place] [address] Care Team Providers Care Medical Laboratory Scientist Name Role Phone NEIL LINCOLN Primary Care Provider Assessment Encounter Date Assessment Date Assessment LastModified by Organization Details LastModified Time 04/12/2020 04/12/2020 Proper Personal Protective Equipment (PPE), including gloves, gown, shoe covers, eye protection and masks were donned and doffed appropriately and all equipment cleaned using approved technique with germicidal disposable wipes prior to and after care of this patient according to [facility]'s infection prevention protocols. 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 -If symptoms worsen then go to ER -F/u with PCP regarding abdominal mass -F/u with heme regarding chronic anemia -Continue to increase PO intake as tolerated, continue with home PT, good sleep hygiene discussed Thank you for your visit with [facility] today. We cannot always find the exact [...] in your condition between 8am-10pm, [facility] at [phone] to help navigate your care. In order to obtain further information and compare any laboratory results/values, I have accessed patient records on the [facility]. This information was pertinent in my medical [...] written and verbal report given to EMS. [email or web address] Not available 11/11/2021 15:09:03 Plan of Treatment Reminders Order Date Submit Date Provider Last Modified By Organization Details Last Modified Time Details Appointments None recorded. Lab rapid SARS CoV 2 Ag, QL IA, respirator y specimen 2021 022 [email or web address] [id number] [facility] - Home, [address] [place], [address], 15:10:14 rapid flu (A+B) 2021 022 [email or web address] 783 [facility] - Home, [address] [place], [address], 2 15:11:19 BMP + ionized calcium, serum or plasma 2020 021 COURTNEY [facility], [address], [place], [address], 17:14:20 CBC w/ auto diff 2020 021 KITE [facility] (Centralized Electronic Ordering - All Locations), Patient Can Go To The Location Of Their Choice, [id number] 23:05:03 BMP + ionized calcium, serum or plasma - repeat due to Cl error 2020 021 ATHENAFAX [facility], [address], [place], [address], 15:40:20 urinalysis , dipstick [facility] [address], [place], [address], 14:27:32 hepatic function panel, serum 2020 021 [facility] - [facility]), Patient Can Go To The Location Of Their Choice, [id number] 00:12:48 Referral None recorded. Procedures None recorded. Surgeries None recorded. Imaging None recorded. Medication Orders None recorded. Patient TargetsNo targets recorded. 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 We cannot always find the exact [...] condition between 8am-10pm, please call [facility] at [phone] to help navigate your care. [email or web address] Not available 04/12/2020 20:00:38 Reason for Referral None Reported. Results Created Date Observation Date Name Description Value Unit Range Abnormal Flag Note LastModifiedBy Organization Detail LastModifiedTime 07/09/19 21 07/08/2020 urina lysis , dipst ick Appearance clear Not Available Spr - [facility] [address] [place], [address], 07/08/2020 14:11:30 07/09/19 21 07/08/2020 urina lysis , dipst ick Color yellow Not Available Spr - Home [address] [place], [address], 07/08/2020 14:11:30 07/09/19 21 07/08/2020 urina lysis , dipst ick Glucose negati ve Not Available Spr - Home [address] [place], [address], 07/08/2020 14:11:30 07/09/19 21 07/08/2020 urina lysis , dipst ick Bilirubin negati ve Not Available Spr - Home [address], [place], [address], 07/08/2020 14:11:30 07/09/19 21 07/08/2020 urina lysis , dipst ick Ketones NEG Not Available Spr - Home [address] [place], [address], 07/08/2020 14:11:30 07/09/19 21 07/08/2020 urina lysis , dipst ick Sp. Cotton 1.015 Not Available Spr - Home [address] [place], [address], 07/08/2020 14:11:30 07/09/19 21 07/08/2020 urina lysis , dipst ick Blood NEG Not Available Spr - Home [address] [place], [address], 07/08/2020 14:11:30 07/09/19 21 07/08/2020 urina lysis , dipst ick pH 5.0 Not Available Spr - Home [address] [place], [address], 07/08/2020 14:11:30 07/09/19 21 07/08/2020 urina lysis , dipst ick Protein negati ve Not Available Spr - Home [address] [place], [address], 07/08/2020 14:11:30 07/09/19 21 07/08/2020 urina lysis , dipst ick Urobilirubin negati ve Not Available Spr - Home [address] [place], [address], 07/08/2020 14:11:30 07/09/19 21 07/08/2020 urina lysis , dipst ick Nitrites NEG Not Available Spr - [place] [facility] [address] [place], [address], 07/08/2020 14:11:30 07/09/19 21 07/08/2020 urina lysis , dipst ick Leukocytes NEG Not Available Spr - H ome [address] [place], [address], 07/08/2020 14:11:30 07/09/19 21 07/08/2020 CBC w/ auto diff WBC 4.7 K/mm3 (4.0-1 1.0) Not Available [facility] (Centralized Electronic Ordering - All Locations) Patient Can Go To The Location Of Their Choice, [id number] 07/08/2020 23:05:03 07/09/19 21 07/08/2020 CBC w/ auto diff RBC 2.60 M/mm3 (4.20- 5.40) low Not Available [facility] (Centralized Electronic Ordering - All Locations) Patient Can Go To The Location Of Their Choice, [id number] 07/08/2020 23:05:03 07/09/19 21 07/08/2020 CBC w/ [...] Go To The Location Of Their Choice, [id number] 07/09/2020 00:12:48 07/09/1907/08/2020 BMP + ioniz ed calci um, serum or plasm a glu 128 mg/dL 70-105 Not Available [address], [address], 07/17/2020 17:15:25 07/09/19 21 07/08/2020 BMP + ioniz ed calci um, serum or plasm a BUN 18 mg/dL 8-26 Not Available [address], [address], 07/17/2020 17:15:25 07/09/19 21 07/08/2020 BMP + ioniz ed calci um, serum or plasm a crea 1.2 mg/dL 0.6-1. 3 Not Available [address], [address], 07/17/2020 17:15:25 07/09/19 21 07/08/2020 BMP + ioniz ed calci um, serum or plasm a Na 140 mmol/ L 138-14 6 Not Available [address], [address], 07/17/2020 17:15:25 07/09/19 21 07/08/2020 BMP + ioniz ed calci um, serum or plasm a K 3.7 mmol/ L 3.5-4. 9 Not Available [address], [address], 07/17/2020 17:15:25 07/09/19 21 07/08/2020 BMP + ioniz ed calci um, serum or plasm a cL 104 mmol/ L 98-109 Not Available [address], [address], 07/17/2020 17:15:25 07/09/19 21 07/08/2020 BMP + ioniz ed calci um, serum or plasm a TCO2 28 mmol/ L 24-29 Not Available [address], [address], 07/17/2020 17:15:25 07/09/19 21 07/08/2020 BMP + ioniz ed calci um, serum or plasm a angap 12 mmol/ L 10-20 Not Available [address], [address], 07/17/2020 17:15:25 07/09/19 21 07/08/2020 BMP + ioniz ed calci um, serum or plasm a ica 1.22 mmol/ L 1.12-1 .32 Not Available [address], [address], 07/17/2020 17:15:25 07/09/19 21 07/08/2020 BMP + ioniz ed calci um, serum or plasm a HCT 28 %pcv 38-51 Not Available [address], [address], 07/17/2020 17:15:25 07/09/19 21 07/08/2020 BMP + ioniz ed calci um, serum or plasm a Hb 9.5 g/dL 12-17 Not Available [address], [address], 07/17/2020 17:15:25 07/09/19 21 07/08/2020 BMP + ioniz ed calci um, serum or plasm a glu 130 mg/dL 70-105 Not Available [address], [address], 07/17/2020 17:14:19 07/09/19 21 07/08/2020 BMP + ioniz ed calci um, serum or plasm a BUN 20 mg/dL 8-26 Not Available [address], [address], 07/17/2020 17:14:19 07/09/19 21 07/08/2020 BMP + ioniz ed calci um, serum or plasm a crea 1.2 mg/dL 0.6-1. 3 Not Available [address], [address], 07/17/2020 17:14:19 07/09/19 21 07/08/2020 BMP + ioniz ed calci um, serum or plasm a Na 140 mmol/ L 138-14 6 Not Available [address], [address], 07/17/2020 17:14:19 07/09/19 21 07/08/2020 BMP + ioniz ed calci um, serum or plasm a K 3.7 mmol/ L 3.5-4. 9 Not Available [address], [address], 07/17/2020 17:14:19 07/09/19 21 07/08/2020 BMP + ioniz ed calci um, serum or plasm a cL mmol/ L 98-109 Not Available [address], [address], 07/17/2020 17:14:19 07/09/19 21 07/08/2020 BMP + ioniz ed calci um, serum or plasm a TCO2 24 mmol/ L 24-29 Not Available [address], [address], 07/17/2020 17:14:19 07/09/19 21 07/08/2020 BMP + ioniz ed calci um, serum or plasm a angap mmol/ L 10-20 Not Available [address] [place], [address], 07/17/2020 17:14:19 07/09/19 21 07/08/2020 BMP + ioniz ed calci um, serum or plasm a ica 1.24 mmol/ L 1.12-1 .32 Not Available [facility] [address] [place], [address], 07/17/2020 17:14:19 07/09/19 21 07/08/2020 BMP + ioniz ed calci um, serum or plasm a HCT 28 %pcv 38-51 Not Available [facility] [address] [place], [address], 07/17/2020 17:14:19 07/09/19 21 07/08/2020 BMP + ioniz ed calci um, serum or plasm a Hb 9.5 g/dL 12-17 Not Available [address] [place], [address], 07/17/2020 17:14:19 11/12/19 22 11/11/2021 rapid flu (A+B) Flu A (ref: neg) negati ve Not Available Spr - Home [address] [place], [address], 11/11/2021 15:10:40 11/12/19 22 11/11/2021 rapid flu (A+B) Flu B (ref: neg) negati ve Not Available Spr - [address] [place], [address], 11/11/2021 15:10:40 11/12/19 22 11/11/2021 rapid flu (A+B) Control Visual ized/V alid Not Available Spr - [address] [place], [address], 11/11/2021 15:10:40 11/12/19 22 11/11/2021 rapid SARS CoV 2 Ag, QL IA, respi rator y speci men Covid-19 (ref: neg) negati ve Not Available Spr - Home [address] [facility], [place], [address], 11/11/2021 15:09:43 11/12/19 22 11/11/2021 rapid SARS CoV 2 Ag, QL IA, respi rator y speci men Control Visual ized/V alid Not Available Spr - Home [address] [facility], [place], [address], 11/11/2021 15:09:43 11/12/19 22 11/11/2021 rapid SARS CoV 2 Ag, QL IA, respi rator y speci men Location [facility], [address] [place] [address], [id number] Not Available Spr - Home [address] [place], [address], 11/11/2021 15:09:43 Result Notes None recorded. Procedures Surgical History Date Name Laterality Status Provider Name and Address Organization Details Recorded Time 07/09/19 21 Venipuncture - completed MARIA M LOPEZ [address] [place], [address], [place] [facility] 07/08/2020 13:58:24 07/09/19 21 ECG Interpretation - completed MARIA M LOPEZ [address] [place], [address], [place] [facility] 07/08/2020 14:08:14 percutaneous coronary intervention completed ARIEL DYSON NP [address] [place], [address], [place] [facility] 04/12/2020 19:00:50 cardiac pacemaker procedure completed ARIEL DYSON NP [address] [place], [address], [place] [facility] 04/12/2020 19:01:35 Imaging Results [...] Vitals Date Recorded Body temperature Oxygen saturation Heart rate Respiratory rate Systolic And Diastolic Provider Name and Address Organization Details Last Updated DateTime 98.9 [degF] 96 % 79 /min 18 /min 110/70 mm[Hg] Not Available [facility] 1 18:56:45 Date Recorded Oxygen saturation Respiratory rate Heart rate Body temperature Systolic And Diastolic Provider Name and Address Organization Details Last Updated DateTime 1 97 % 18 /min 102 /min 98.4 [degF] 130/60 mm[Hg] Not Available [facility] 1 13:15:25 Date Recorded Heart rate Body temperature Oxygen saturation Respiratory rate Systolic And Diastolic Provider Name and Address Organization Details Last Updated DateTime 2 62 /min 98.5 [degF] 96 % 18 /min 130/60 mm[Hg] Not Available [facility] 2 13:55:12 Social History Question Answer Notes LastModified by Organizat ion Details LastModified Time Tobacco Smoking Status Former Smoker ARIEL DYSON NP [address], [place], [address], [place] [facility] 04/12/2020 18:58:02 Do You Have An Advance Directive? Yes Information not available 04/12/2020 What Is Your Code Status? Full Code [email or web address] Information not available 04/12/2020 Within The Past 12 Months, Has It Happened That The Food You Bought Just Didn't Last And You Didn't Have Money To Get More. No Information not available 04/12/2020 Within The Past 12 Months, Have You Worried That Your Food Would Run Out Before You Got Money To Buy More. No [email or web address] Information not available 04/12/2020 Fall Risk: Do You Feel Unsteady When Standing Or Walking? Yes [email or web address] Information not available 04/12/2020 We Know That How And When People Interact With Friends And Family Can Be Very Different From Person To Person. How Often Do You Have The Opportunity To See Or Talk To People That You Care About And Feel Close To? (Ex: Talking To Friends On The Phone Or Visiting Friends Or Family Or Going To Evangelical Or Club Meetings) 5 Or More Times Per Week [email or web address] Information not available 04/12/2020 Excessive Alcohol Or Drug Use No [email or web address] Information not available 04/12/2020 We Know From Many Of Our Patients That Covering All Of Their Costs Can Be Difficult At Times. This Can Cause Stress And Impact Health. In The Past Year, Have You Been Unable To Get Any Of The Following When It Was Really Needed? No [email or web address] Information not available 04/12/2020 What Is Your Housing Situation Today? I Have Housing [email or web address] Information not available 04/12/2020 Would You Like Help Connecting To Resources? None Information not available 04/12/2020 What Was The Date Of Your Most Recent Tobacco Screening? 04/04/2013 [email or web address] Information not available 04/12/2020 How Much Tobacco Do You Smoke? 0.25 PPD [email or web address] Information not available 04/12/2020 How Many Years Have You Smoked Tobacco? 15 [email or web address] Information not available 04/12/2020 Sex: Unknown Functional Status None recorded. Mental Status None recorded. Family History Relationship Description Onset Age of this Age Resolved Age Notes LastModified by Organization Details LastModified Time Father No current problems or disability [email or web address] Not available 04/12 18:57:55 Mother No current problems or disability Not available 04/12 18:57:55 Medical History Condition [...] preservative 0 completed ARIEL DYSON NP [address], [place], [address], [place] [facility] 04/12/2020 18:57:29 Past Encounters Encounter ID Performer Location Encounter Start Date Encounter Closed Date Diagnosis/Indication Diagnosis SNOMED-CT Code Diagnosis ICD10 Code Diagnosis IMO Codes Diagnosis Note [id number] ARIEL DYSON NP [facility] - HOME [address] [place] [address] 04/12/2020 18:50:30 04/14/2020 23:53:31 Gout 91140732 M10.9 Congestive heart failure 57093577 I50.9 Knee pyoge trang arthritis 231322567 M00.9 Deep venou s thrombosis 326956903 I82.409 [id number] MARIA M LOPEZ [facility] - HOME [address] [place] [address] 07/08/2020 13:07:51 07/10/2020 15:58:40 Weakness present 805902519 M62.81 Tachycardia 1932755 R00. 0 Anemia 809121021 D64.9 Abdominal mass 509047559 R19.00 Physical deconditioning 6085483859 9102 R68.89 [id number] September JORDON Davalos [facility] - HOME [address] [place] [address] 11/11/2021 13:50:10 11/12/2021 08:26:50 Abdominal pain 86623642 R10.9 Cough 37827347 R05.1 Health Concerns Section Related Observation LastModified by Organization Detai ls LastModified Time None Recorded Concern Status LastModified by Organization Details LastModified Time None Recorded Advance Directives Directive Y: Payers Insurance Date Sequence Insurance Name Policy Number Policy Conklin Covered Member ID Conklin Member ID Guarantor Name 11/17/2021 2 FOR LIFE ( - MEDICARE SUPPLEMENT) Margo Fang [id number] Margo Fang 08/30/2020 2 FOR LIFE ( - MEDICARE SUPPLEMENT) Margo Fang [id number] [place] Fang 04/12/2020 1 *SELF PAY* Margo Fang [id number] Margo Fang 11/11/2021 1 MEDICARE B-[place]: [facility] Leoncio [id number] [place] 04/12/2020 1 MEDICARE B-[place]: [facility] Leoncio [id number] [place] 07/08/2020 PENDING Margo Leoncio [id number] Margo Leoncio Notes Date Note Type Note Provider Name [...] May, ARIEL DYSON NP [address], [place], [address], [place] [facility] 04/17/2020 13:18:18 07/08/2020 text/html [...] up. MARIA M LOPEZ [address], [place], [address], [place] [facility] 07/08/2020 15:46:18 11/11/2021 text/html [...] gas, however last BM Wednesday night. September JORDON Davalos [address], [place], [address], [place] [facility] 11/11/2021 15:11:46 OBGyn Episode No OBEpisode recorded.
--- OUTSIDE RECORDS SUMMARY | 2025-03-01 00:48 | XMS_ITS | Clinical Summary ---
Author Organization [facility] Address [address] [place] [address] Phone Care Team Providers Care Game Preserve Manager Name Role Phone Vee Chand MD [...] mcg total) by mouth daily. Active Immunizations Immunization Administration Dates Next Due Pfizer SARS-CoV-2 COVID-19, [...] Description 07/03/2025 3:00 PM EDT Office Visit [facility] Hematology Oncology [address] [place] [phone] Jose E Mckeon MD [address] [place] [address] Health Maintenance Due Date Last Done Comments [...] patient's age [place] [address] [facility] Advance Directives Documents on File Type Date Recorded Patient Dining Room Host/Hostess Expl anation Health Care Decision (hx) 07/15/2019 AD DAVILA DIRECTIVE Health Care Decision (hx) 06/17/2019 AD DAVILA DIRECTIVE Health Care Decision (hx) 06/08/2019 AD DAVILA DIRECTIVE Care Teams Game Preserve Manager Relationship Specialty Start Date End Date Vee Chand MD [address] [place] [address] PCP - General Internal Medicine 08/18/19
== END 2025-02-28 16:35 | disposition home or self-care (01) ==
LOC: HO.HKA 16:10
PROVIDERS: PCP Internal Medicine; Visit Provider Internal Medicine Nephrology
DX: I12.9 Hypertensive chronic kidney disease with stage 1 through stage 4 chronic kidney disease, or unspecified chronic kidney disease (principal); N25.81 Secondary hyperparathyroidism of renal origin; N18.32 Chronic kidney disease, stage 3b; N28.89 Other specified disorders of kidney and ureter; N18.4 Chronic kidney disease, stage 4 (severe); D63.1 Anemia in chronic kidney disease
CPT/HCPCS: 99214

== ENCOUNTER → 2025-02-28 16:09 | Outpatient (BNVA) | payer MEDICARE, OTHER, SELFPAY | PROVIDERS: PCP Internal Medicine; Visit Provider Internal Medicine Nephrology | DX: I12.9 Hypertensive chronic kidney disease with stage 1 through stage 4 chronic kidney disease, or unspecified chronic kidney disease (principal); E11.22 Type 2 diabetes mellitus with diabetic chronic kidney disease; N25.81 Secondary hyperparathyroidism of renal origin; N18.32 Chronic kidney disease, stage 3b; D63.1 Anemia in chronic kidney disease; N28.89 Other specified disorders of kidney and ureter | CPT/HCPCS: 96372; 99212; Q5106 ==